=== PATIENT | female | born 1945 | race Caucasian/White ===

== ENCOUNTER → 2018-02-24 | Outpatient (CLI) | payer MEDICARE, BC ==
--- NOTE | 2018-02-24 16:10 | RAD ---
Abdominal ultrasound, 02/24/2018: HISTORY: Abdominal pain The gallbladder contains multiple foci of increased echogenicity with posterior acoustic shadowing. The appearance is that of cholelithiasis. There is mild gallbladder wall thickening. No pericholecystic edema is seen. The common hepatic duct measures 4 mm. There is no evidence of a hepatic mass or intrahepatic bile duct dilatation. The spleen is of normal size. No renal abnormality is detected. The pancreas and central retroperitoneum including the abdominal aorta and inferior vena cava were obscured by overlying bowel. IMPRESSION: Cholelithiasis with mild associated gallbladder wall thickening. Electronically signed by: Yuan Arboleda MD (02/24/2018 4:06 PM) [facility]
== END | disposition home or self-care (01) ==
LOC: US 06:58
PROVIDERS: ATTEND Family Medicine
DX: K80.20 Calculus of gallbladder without cholecystitis without obstruction (principal)
CPT/HCPCS: 76700

== ENCOUNTER 2018-03-08 11:31 | Observation (INO) | payer MEDICARE, BC ==
[~2018-03-08] VITALS: Ht 160 cm; Wt 51.3 kg
[2018-03-08] VITALS (9 sets, daily range): BP systolic 133–175; BP diastolic 54–66
[~2018-03-08 11:31] MED LIST: CHOL10003 PO; DEXAMETHASONE SOD PHOS 20 MG/5 ML VIAL. ONE; GLYCOPYRROLATE 1 MG/5 ML VIAL. ONE; HYDROmorphone 2 MG/ML VIAL IV PRN; IV RINGERS,LACTATED 1000ML 1,000 ML IV SCH; LEVO5TAB29 PO; LIDOCAINE 1% PF 2 ML VIAL. ID PRN; LIDOCAINE 2% PF Vial for OR 5 ML VIAL. ONE; LOPE2CAP88 PO; MORPHINE SULFATE 2 MG/ML VIAL. IV PRN; MULT1TAB52 PO; NEOSTIGMINE METHYLSULFATE 5 MG/5 ML SYRINGE. ONE; ONDA4TAB7 PO; ONDANSETRON PF 4 MG/2 ML VIAL. IV PRN; ONDANSETRON PF 4 MG/2 ML VIAL. ONE; OXYB5TAB7 PO; PANT20TA2 PO; PROCHLORPERAZINE 10 MG/2 ML VIAL. IV PRN; PROP10DR3 OP; PROPOFOL 20 ML IV ONE; ROCURONIUM 50 MG/5 ML VIAL. ONE; fentaNYL PF VIAL 100 MCG/2 ML VIAL IV PRN; fentaNYL PF VIAL 100 MCG/2 ML VIAL ONE
[2018-03-08] MEDS ORDERED: BUPIVAC MPF-EPI 0.5%-1:200000 30 ML VIAL. ONE (12:21)
[2018-03-08] MEDS ORDERED: IOHEXOL 300 MG/ML 100ML VIAL. ONE (12:21)
[2018-03-08] MEDS ORDERED: SURGICEL HEMOSTAT 4X8 EACH. ONE (12:21)
[2018-03-08] MEDS ORDERED: fentaNYL PF VIAL 100 MCG/2 ML VIAL ONE (13:11)
[2018-03-08] MEDS ORDERED: GLYCOPYRROLATE 1 MG/5 ML VIAL. ONE (13:41)
[2018-03-08] MEDS ORDERED: NEOSTIGMINE METHYLSULFATE 5 MG/5 ML SYRINGE. ONE (13:41)
[2018-03-08] MEDS ORDERED: SEVOFLURANE > 120 MINUTES. IH ONE (14:34)
--- NOTE | 2018-03-08 14:51 | RAD ---
Examination: Operative cholangiogram History: Cholecystectomy. Procedure: Fluoroscopic images were provided during the procedure. The cystic duct has been catheterized and contrast has been injected. Findings: The common hepatic bile duct and common bile duct are patent without evidence of intraluminal filling defect or obstruction. Contrast empties normally into the duodenum. Impression: Normal operative cholangiogram. Total fluoroscopic images 2. Total fluoroscopic time 20 seconds. Electronically signed by: Gallo Amato MD (03/08/2018 2:47 PM) [id number]
--- NOTE | 2018-03-08 14:55 | PDOC4 ---
Operative Note Operative Note Operative Note: Preoperative Diagnosis: Symptomatic cholelithiasis Postoperative Diagnosis: Same Procedure: Laparoscopic cholecystectomy with intraoperative cholangiogram, extensive laparoscopic lysis of adhesions (over 1 hour) Surgeons: Abdirahman Hand Box Folder: Nisha SIMPSON Anesthesia: Gen. Estimated Blood Loss: 25 mL Specimen: Gallbladder to pathology Drains: None Complications: None Indications: The patient is a 72-year-old female who presented with symptomatic cholelithiasis. Surgical treatment was offered by means of a laparoscopic cholecystectomy. The risks of surgery were discussed which include bleeding, infection, bile duct injury, bile leak, pain, the potential for additional surgeries or procedures. The patient understands and would like to proceed. Description: The patient was taken to the operating room and laid supine on the operating table. General anesthesia was performed. The abdomen was prepped with ChloraPrep and draped in a standard surgical fashion. The patient had prior abdominal surgeries and based on her scar pattern we elected to attempt to gain access in the left upper quadrant. A small incision was made through which a visualized 5 mm trocar was inserted. Under visualization were able to see a marked amount of adhesions. I was unable to easily obtain a clear space and elected to attempt right upper quadrant access. During visualization through the trocar there did not seem to be any disruption of the bowel. In the right upper quadrant a small incision was made through which a visualized 5 mm trocar was inserted. A pneumoperitoneum was created and the laparoscope was introduced. The patient had a very significant amount of adhesions due to her prior surgery. These were fairly extensive throughout the entire abdomen. To proceed with the cholecystectomy significant degree of adhesive lysis was required. I was able to place a 5 moment a trocar in the upper midabdomen. We began with mobilizing many of the adhesions involving primarily omentum but a small amount of intestine in the right abdomen. This was done with sharp dissection. We cleared enough space to place another 5 mm trocar in the right abdomen under visualization. We were able to move the camera to that port and continue freeing up the adhesions in the upper midabdomen and left upper quadrant. Gradually we were able to mobilize all of the intestine away from the abdominal wall. We were then able to better visualize the initial port entry site in the left upper quadrant. We continued to be significant adhesions however there did not appear to be any suggestion of a bowel injury and there was no enteric staining. In total over an hour was spent performing the lysis of adhesions and inspection of the abdomen. We then proceeded to the right upper quadrant for the cholecystectomy. In the right lateral abdomen at 2.3 mm mini lap grasper was inserted. The gallbladder was very distended and tense. The gallbladder was aspirated and over 100 mL of bilious fluid was suctioned providing gallbladder decompression. The gallbladder was then retracted cephalad. The cystic duct was dissected free from surrounding tissues. One clip was placed on the duct near the gallbladder junction. An opening was made in the duct and a cholangiocatheter placed within and secured with a clip. Using contrast dye and fluoroscopy an intraoperative cholangiogram was performed that appeared unremarkable. The clip and catheter were then withdrawn. Three clips were placed on the cystic duct and it was divided. The cystic artery was then identified, dissected free, doubly clipped and divided as well. The gallbladder was then mobilized away from the liver with cautery. The gallbladder was then placed in an endoscopic bag and extracted at the superior trocar site. The fascia there was closed with interrupted 0 PDS sutures. All blood and irrigation fluid was suctioned and hemostasis was good. Inspection of the left abdomen again showed no signs suggesting bowel injury. The remaining ports were removed and the pneumoperitoneum was relieved. The skin incisions were closed using 4-0 Monocryl suture. Steri-Strips and dressings were then applied. The patient tolerated the procedure well and was sent to the recovery room in stable condition. At the end of the case all counts were correct. EVANS PERERA MD Mar 08, 2018 14:55
[2018-03-08] MEDS ORDERED: HYDROmorphone 2 MG/ML VIAL IV PRN (15:00)
[2018-03-08] MEDS ORDERED: 0.9 % SODIUM CHLORIDE 10 ML DISP.SYRIN. IV PRN (15:00)
[2018-03-08] MEDS ORDERED: HYDROcodone/APAP 5/325MG 1 TAB TABLET PO PRN ×2 (15:00)
[2018-03-08] MEDS ORDERED: ONDANSETRON PF 4 MG/2 ML VIAL. IV PRN (15:00)
[2018-03-08] MEDS ORDERED: DEXTROSE 50% 25 GM / 50ML DISP.SYRIN. IV PRN (15:00)
[2018-03-08] MEDS: IV 1/2 NORMAL SALINE 1,000 ML IV SCH (16:42)
[2018-03-08] MEDS: PANTOPRAZOLE 40 MG TABLET.DR. PO SCH (16:42)
[2018-03-08] MEDS: OXYBUTYNIN CHLORIDE 5 MG TABLET PO SCH (21:05)
[2018-03-09 03:00] VITALS: BP 148/90
[2018-03-09 05:40] LABS: BASO % 1 % (0-3); EOS % 1 % (0-3); HEMATOCRIT 29.1 % (36.0-47.0); HEMOGLOBIN 9.9 g/dL (12.0-15.5); LYMPH # 0.9 x10^3/uL (1.0-4.8); LYMPH % 19 % (24-48); MEAN CORPUSCULAR HEMOGLOBIN 31 pg (25-35); MEAN CORPUSCULAR HGB CONC 34 g/dL (31-37); MEAN CORPUSCULAR VOLUME 91 fL (79-100); MONO # 0.6 x10^3/uL (0.0-1.1); MONO % 14 % (0-9); NEUT # 2.9 x10^3uL (1.8-7.7); NEUT % 66 % (31-73); PLATELET COUNT 259 x10^3/uL (140-400); RED BLOOD COUNT 3.18 x10^6/uL (3.50-5.40); RED CELL DISTRIBUTION WIDTH 13.3 % (11.5-14.5); WHITE BLOOD COUNT 4.5 x10^3/uL (4.0-11.0)
[2018-03-09] MEDS: IV 1/2 NORMAL SALINE 1,000 ML IV SCH (05:43)
[2018-03-09] MEDS: PANTOPRAZOLE 40 MG TABLET.DR. PO SCH (06:39)
[2018-03-09 07:00] VITALS: BP 146/56
[2018-03-09] MEDS: OXYBUTYNIN CHLORIDE 5 MG TABLET PO SCH (07:52)
[2018-03-09] MEDS ORDERED: HYDR-2761 PO (08:51)
[2018-03-09] MEDS ORDERED: CETIRIZINE HCL 10 MG TABLET. PO SCH (09:00)
[2018-03-09] MEDS ORDERED: CHOLECALCIFEROL (VITAMIN D3) 1,000 UNIT TABLET PO SCH (09:00)
[2018-03-09] MEDS ORDERED: MULTIVITAMIN with MINERAL TABLET. PO SCH (09:00)
[2018-03-09] MEDS ORDERED: ACETAMINOPHEN 325 MG TABLET. PO PRN (09:45)
--- NOTE | 2018-03-09 09:50 | DISCH ---
DISCHARGE INSTRUCTIONS Condition on Discharge Condition on Discharge: Stable Activity After Discharge Activity Instructions for Disc: Activity as tolerated Other activity instructions: ok to shower Lifting Instructions after Dis: No heavy lifting, No pulling or pushing (20 lbsc) Driving Instructions after Dis: Do not drive (while taking pain medication ) Diet after Discharge Diet after Discharge: Regular Wound Incision Care Wound/Incision Care: May get incision wet, No wound care needed Contacting the after DC Call your doctor for: Concerns you may have Follow-Up Follow up with: Dr Gary 2 weeks, call to schedule AMARILIS ABDI APRN Mar 09, 2018 09:50
--- NOTE | 2018-03-09 09:53 | PDOC3 ---
Discharge Summary Visit Information Date of Admission: Mar 08, 2018 Date of Discharge: Mar 09, 2018 Admitting Diagnosis: Symptomatic cholelithiasis Final Diagnosis Symptomatic cholelithiasis Brief Hospital Course Allergies Allergies Coded Allergies Type Severity Reaction Last Updated Verified latex Allergy Intermediate EYE SWELLING; RASH 03/08/18 Yes codeine Adverse Reaction Intermediate Makes her feel uncomfortable 03/08/18 Yes Vital Signs Vital Signs Date Time Temp Pulse Resp B/P (MAP) Pulse Ox O2 Delivery O2 Flow Rate FiO2 03/09/18 08:15 Room Air 03/09/18 07:00 97.9 81 18 146/56 (86) 98 97.9 03/08/18 14:54 10 Lab Results Laboratory Tests Test 03/09/18 04:35 White Blood Count 4.5 x10^3/uL (4.0-11.0) Red Blood Count 3.18 x10^6/uL (3.50-5.40) Hemoglobin 9.9 g/dL (12.0-15.5) Hematocrit 29.1 % (36.0-47.0) Mean Corpuscular Volume 91 fL (79-100) Mean Corpuscular Hemoglobin 31 pg (25-35) Mean Corpuscular Hemoglobin Concent 34 g/dL (31-37) Red Cell Distribution Width 13.3 % (11.5-14.5) Platelet Count 259 x10^3/uL (140-400) Neutrophils (%) (Auto) 66 % (31-73) Lymphocytes (%) (Auto) 19 % (24-48) Monocytes (%) (Auto) 14 % (0-9) Eosinophils (%) (Auto) 1 % (0-3) Basophils (%) (Auto) 1 % (0-3) Neutrophils # (Auto) 2.9 x10^3uL (1.8-7.7) Lymphocytes # (Auto) 0.9 x10^3/uL (1.0-4.8) Monocytes # (Auto) 0.6 x10^3/uL (0.0-1.1) Eosinophils # (Auto) 0.0 x10^3/uL (0.0-0.7) Basophils # (Auto) 0.0 x10^3/uL (0.0-0.2) Laboratory Tests Test 03/09/18 04:35 White Blood Count 4.5 x10^3/uL (4.0-11.0) Red Blood Count 3.18 x10^6/uL (3.50-5.40) Hemoglobin 9.9 g/dL (12.0-15.5) Hematocrit 29.1 % (36.0-47.0) Mean Corpuscular Volume 91 fL (79-100) Mean Corpuscular Hemoglobin 31 pg (25-35) Mean Corpuscular Hemoglobin Concent 34 g/dL (31-37) Red Cell Distribution Width 13.3 % (11.5-14.5) Platelet Count 259 x10^3/uL (140-400) Neutrophils (%) (Auto) 66 % (31-73) Lymphocytes (%) (Auto) 19 % (24-48) Monocytes (%) (Auto) 14 % (0-9) Eosinophils (%) (Auto) 1 % (0-3) Basophils (%) (Auto) 1 % (0-3) Neutrophils # (Auto) 2.9 x10^3uL (1.8-7.7) Lymphocytes # (Auto) 0.9 x10^3/uL (1.0-4.8) Monocytes # (Auto) 0.6 x10^3/uL (0.0-1.1) Eosinophils # (Auto) 0.0 x10^3/uL (0.0-0.7) Basophils # (Auto) 0.0 x10^3/uL (0.0-0.2) Brief Hospital Course Ms. Michel is a 72 old female who underwent Laparoscopic cholecystectomy with intraoperative cholangiogram, extensive laparoscopic lysis of adhesions ( over 1 hour). Postoperatively tolerating diet, ambulating, and pain managed. Ready for discharge home Discharge Information Condition at Discharge: Stable Follow Up: Weeks (2) Disposition/Orders: D/C to Home Scheduled Cholecalciferol (Vitamin D3) (Vitamin D3) 1,000 Unit Tablet, 1,000 UNIT PO DAILY for VITAMIN, (Reported) Entered as Reported by: NICA WINN on 03/07/181007 Last Action: Continued on 03/08/18 1459 by EVANS PERERA Levocetirizine Dihydrochloride (Xyzal) 5 Mg Tablet, 5 MG PO DAILY for ALLERGIES , (Reported) Entered as Reported by: NICA WINN on 03/07/181007 Last Action: Converted on 03/08/181458 by EVANS PERERA Multivitamin (Multivitamins) 1 Each Tablet, 1 EACH PO DAILY for VITAMIN, ( Reported) Entered as Reported by: NICA WINN on 03/07/181007 Last Action: Converted on 03/08/181458 by EVANS PERERA Oxybutynin Chloride (Oxybutynin Chloride) 5 Mg Tablet, 5 MG PO TID for FREQUENCY , (Reported) Entered as Reported by: NICA WINN on 03/07/181007 Last Action: Continued on 03/08/181458 by EVANS PERERA Pantoprazole Sodium (Protonix) 20 Mg Tablet.dr, 40 MG PO BID for REFLUX, ( Reported) Entered as Reported by: NICA WINN on 03/07/181007 Last Taken: Unknown Dose on 03/08/18 0800 Last Action: Converted on 03/08 by EVANS PERERA Propylene Glycol/Peg 400 (Systane Ultra 0.4-0.3% Eye Drp) 10 Ml Drops, 10 ML OP BID for EYES, (Reported) Entered as Reported by: NICA WINN on 03/07/181007 Last Action: HELD on 03/08/181458 by EVANS PERERA Scheduled PRN Hydrocodone Bit/Acetaminophen (Hydrocodone-Apap 5-325 ) 1 Tab Tablet, 1 TAB PO PRN Q4HRS PRN for MILD PAIN, #30 Ref 0 Prescribed by: Ayleen Stafford on 03/09/18 08 Loperamide HCl (Imodium A-D) 2 Mg Capsule, 2 MG PO PRN PRN for DIARRHEA, ( Reported) Entered as Reported by: NICA WINN on 03/07/181007 Last Action: HELD on 03/08/181458 by EVANS PERERA Ondansetron Hcl (Zofran) 4 Mg Tablet, 4 MG PO BID PRN for NAUSEA/VOMITING, ( Reported) Entered as Reported by: NICA WINN on 03/07/181007 Last Action: HELD on 03/08/181458 by AYLEEN TIMMONS APRN Mar 09, 2018 09:52
== END 2018-03-09 11:10 | disposition home or self-care (01) ==
LOC: SURG 11:31 → 4 NORTH 14:54
PROVIDERS: ADMIT Surgery; ATTEND Surgery
DX: K80.20 Calculus of gallbladder without cholecystitis without obstruction (principal); K66.0 Peritoneal adhesions (postprocedural) (postinfection)
CPT/HCPCS: 36415; 47563; 74300; 85025; A7015; G0378; G0379; J0690; J1100; J2001; J2405; J2704; J2710; J3010; J3490; J7030; Q9967

== ENCOUNTER 2018-05-16 16:32 | Inpatient (IN) | payer MEDICARE, BC ==
[~2018-05-16] VITALS: Ht 160 cm; Wt 45.8 kg
[~2018-05-16 16:32] MED LIST changes: +ASPI-612 PO; +CHOL4POW3 PO; -DEXAMETHASONE SOD PHOS 20 MG/5 ML VIAL. ONE; +DIPH1TAB5 PO; +FAMO20TA5 PO; -GLYCOPYRROLATE 1 MG/5 ML VIAL. ONE; +HYDR-2761 PO; -HYDROmorphone 2 MG/ML VIAL IV PRN; -IV RINGERS,LACTATED 1000ML 1,000 ML IV SCH; -LIDOCAINE 1% PF 2 ML VIAL. ID PRN; -LIDOCAINE 2% PF Vial for OR 5 ML VIAL. ONE; +METO50TA4 PO; -MORPHINE SULFATE 2 MG/ML VIAL. IV PRN; +MOXI400T PO; -NEOSTIGMINE METHYLSULFATE 5 MG/5 ML SYRINGE. ONE; -ONDANSETRON PF 4 MG/2 ML VIAL. IV PRN; -ONDANSETRON PF 4 MG/2 ML VIAL. ONE; +POTA10TA6 PO; -PROCHLORPERAZINE 10 MG/2 ML VIAL. IV PRN; -PROPOFOL 20 ML IV ONE; -ROCURONIUM 50 MG/5 ML VIAL. ONE; -fentaNYL PF VIAL 100 MCG/2 ML VIAL IV PRN; -fentaNYL PF VIAL 100 MCG/2 ML VIAL ONE
[2018-05-16] MEDS ORDERED: IV NORMAL SALINE 1000ML BAG 1,000 ML IV ONE ×2 (17:00→19:30)
[2018-05-16] MEDS ORDERED: ONDANSETRON PF 4 MG/2 ML VIAL. IV ONE (17:00)
[2018-05-16 17:29] LABS: BASO % 1 % (0-3); EOS % 1 % (0-3); HEMATOCRIT 33.2 % (36.0-47.0); HEMOGLOBIN 10.9 g/dL (12.0-15.5); LYMPH % 23 % (24-48); MEAN CORPUSCULAR HEMOGLOBIN 29 pg (25-35); MEAN CORPUSCULAR HGB CONC 33 g/dL (31-37); MEAN CORPUSCULAR VOLUME 87 fL (79-100); MONO # 0.7 x10^3/uL (0.0-1.1); MONO % 16 % (0-9); NEUT # 2.6 x10^3uL (1.8-7.7); NEUT % 60 % (31-73); PLATELET COUNT 486 x10^3/uL (140-400); RED CELL DISTRIBUTION WIDTH 18.9 % (11.5-14.5); WHITE BLOOD COUNT 4.3 x10^3/uL (4.0-11.0)
[2018-05-16 17:42] LABS: CALCIUM 8.7 mg/dL (8.5-10.1); CREATININE 0.8 mg/dL (0.6-1.0); GFR 70.7; POTASSIUM 3.4 mmol/L (3.5-5.1)
[2018-05-16 17:51] LABS: ALBUMIN 2.2 g/dL (3.4-5.0); ALBUMIN/GLOBULIN RATIO 0.6 (1.0-1.7); TOTAL BILIRUBIN 0.3 mg/dL (0.2-1.0); TOTAL PROTEIN 6.1 g/dL (6.4-8.2)
[2018-05-16] MEDS ORDERED: IOHEXOL 300 MG/ML 100ML VIAL. IV ONE (18:00)
--- NOTE | 2018-05-16 18:20 | RAD ---
PQRS Compliance statement: One or more of the following individualized dose reduction techniques were utilized for this examination: 1. Automated exposure control. 2. Adjustment of the mA and/or kV according to patient size. 3. Use of iterative reconstruction technique. Indication:ABD PAIN, HX RECENT SBO, PRIOR SENT, [id number] 75ML TECHNIQUE: CT abdomen and pelvis with IV contrast with multiplanar reformats. COMPARISON: 04/11/2018 FINDINGS: Heart is normal in size. No pericardial or pleural effusion. Moderate sliding hiatal hernia. Clear lung bases. Liver, spleen, pancreas, adrenals and kidneys within normal limits. Status post cholecystectomy. No free pelvic fluid or ascites. Anastomotic sutures are seen in the rectum. Diffusely dilated small bowel loops are seen with air-fluid levels. Transition point is most likely in the distal small bowel. Moderate diffuse colonic stool burden.. Status post hysterectomy. Urinary bladder is decompressed however shows no radiopaque stones. No pneumoperitoneum or pneumatosis intestinalis. No suspicious bony lesion. IMPRESSION: 1. Findings of small bowel obstruction with transition point most likely in the distal small bowel. 2. Moderate sliding hiatal hernia. Electronically signed by: Antwan Diallo DO (05/16/2018 6:17 PM) [facility]
--- NOTE | 2018-05-16 19:17 | PHYS DOC ---
Past Medical History Past Medical History: Cancer Additional Past Medical Histor: RECTAL CA, tachycardia, Past Surgical History: Cholecystectomy, Hysterectomy, Tonsillectomy, Other Additional Past Surgical Histo: BUNION, RECTAL, BREAST BIOPSY Alcohol Use: None Drug Use: None Adult General Chief Complaint Chief Complaint: ABDOMINAL PAIN HPI HPI Patient is a 72 year old female with history of rectal cancer, laparoscopic cholecystectomy February 2018, who presents to the ED today complaining of a slight intermittent episodes of generalized abdominal pain and nausea since yesterday. Patient denies any vomiting. She states this feels similar to around March 2018 when she was diagnosed with small bowel obstruction. Review of Systems Review of Systems Constitutional: Denies fever or chills [] Eyes: Denies change in visual acuity, redness, or eye pain [] HENT: Denies nasal congestion or sore throat [] Respiratory: Denies cough or shortness of breath [] Cardiovascular: No additional information not addressed in HPI [] GI: Reports generalized abdominal pain, nausea, denies vomiting, bloody stools or diarrhea [] : Denies dysuria or hematuria [] Musculoskeletal: Denies back pain or joint pain [] Integument: Denies rash or skin lesions [] Neurologic: Denies headache, focal weakness or sensory changes [] All other systems were reviewed and found to be within normal limits, except as documented in this note. Current Medications Current Medications Current Medications Medications (Trade) Dose Ordered Sig/Josefina Start Time Stop Time Status Last Admin Dose Admin Iohexol (Omnipaque 300 Mg/ml) 75 ml 1X ONCE 05/16/18 18:00 05/16/18 18:01 DC 05/16/18 18:04 75 ML Ondansetron HCl (Zofran) 4 mg 1X ONCE 05/16/18 17:00 05/16/18 17:01 DC Sodium Chloride 1,000 ml @ 1,000 mls/hr 1X ONCE 05/16/18 17:00 05/16/18 17:59 DC 05/16/18 17:24 1,000 MLS/HR Allergies Allergies Allergies Coded Allergies Type Severity Reaction Last Updated Verified latex Allergy Intermediate EYE SWELLING; RASH 03/08/18 Yes codeine Adverse Reaction Intermediate Makes her feel uncomfortable 03/08/18 Yes Physical Exam Physical Exam Constitutional: Thin appearing patient, no acute distress, non-toxic appearance. [] HENT: Normocephalic, atraumatic, bilateral external ears normal, oropharynx moist, no oral exudates, nose normal. [] Eyes: PERRLA, EOMI, conjunctiva normal, no discharge. [] Neck: Normal range of motion, no tenderness, supple, no stridor. [] Cardiovascular:Heart rate regular rhythm, no murmur [] Lungs & Thorax: Bilateral breath sounds clear to auscultation [] Abdomen: Old healed surgical incision noted on the abdomen consistent with laparoscopy cholecystectomy. Bowel sounds normal, soft, no tenderness, no masses , no pulsatile masses. [] Skin: Warm, dry, no erythema, no rash. [] Back: No tenderness, no CVA tenderness. [] Extremities: No tenderness, no cyanosis, no clubbing, ROM intact, no edema. [] Neurologic: Alert and oriented X 3, normal motor function, normal sensory function, no focal deficits noted. [] Psychologic: Affect normal, judgement normal, mood normal. [] Current Patient Data Vital Signs Vital Signs Date Time Temp Pulse Resp B/P (MAP) Pulse Ox O2 Delivery O2 Flow Rate FiO2 05/16/18 18:40 88 16 162/77 (105) 98 Room Air 05/16/18 16:53 98.1 98.1 Lab Values Laboratory Tests Test 05/16/18 17:19 White Blood Count 4.3 x10^3/uL (4.0-11.0) Red Blood Count 3.80 x10^6/uL (3.50-5.40) Hemoglobin 10.9 g/dL (12.0-15.5) L Hematocrit 33.2 % (36.0-47.0) L Mean Corpuscular Volume 87 fL (79-100) Mean Corpuscular Hemoglobin 29 pg (25-35) Mean Corpuscular Hemoglobin Concent 33 g/dL (31-37) Red Cell Distribution Width 18.9 % (11.5-14.5) H Platelet Count 486 x10^3/uL (140-400) H Neutrophils (%) (Auto) 60 % (31-73) Lymphocytes (%) (Auto) 23 % (24-48) L Monocytes (%) (Auto) 16 % (0-9) H Eosinophils (%) (Auto) 1 % (0-3) Basophils (%) (Auto) 1 % (0-3) Neutrophils # (Auto) 2.6 x10^3uL (1.8-7.7) Lymphocytes # (Auto) 1.0 x10^3/uL (1.0-4.8) Monocytes # (Auto) 0.7 x10^3/uL (0.0-1.1) Eosinophils # (Auto) 0.0 x10^3/uL (0.0-0.7) Basophils # (Auto) 0.0 x10^3/uL (0.0-0.2) Sodium Level 139 mmol/L (136-145) Potassium Level 3.4 mmol/L (3.5-5.1) L Chloride Level 100 mmol/L (98-107) Carbon Dioxide Level 30 mmol/L (21-32) Anion Gap 9 (6-14) Blood Urea Nitrogen 16 mg/dL (7-20) Creatinine 0.8 mg/dL (0.6-1.0) Estimated GFR (Cockcroft-Gault) 70.7 BUN/Creatinine Ratio 20 (6-20) Glucose Level 105 mg/dL (70-99) H Calcium Level 8.7 mg/dL (8.5-10.1) Total Bilirubin 0.3 mg/dL (0.2-1.0) Aspartate Amino Transferase (AST) 17 U/L (15-37) Alanine Aminotransferase (ALT) 14 U/L (14-59) Alkaline Phosphatase 85 U/L (46-116) Total Protein 6.1 g/dL (6.4-8.2) L Albumin 2.2 g/dL (3.4-5.0) L Albumin/Globulin Ratio 0.6 (1.0-1.7) L Lipase 284 U/L (73-393) Laboratory Tests 05/16/18 17:19 Laboratory Tests 05/16/18 17:19 EKG EKG [] Radiology/Procedures Radiology/Procedures [] Course & Med Decision Making Course & Med Decision Making Pertinent Labs and Imaging studies reviewed. (See chart for details) This is a 72-year-old female patient presenting to the ED today to be evaluated for episodes of abdominal pain, nausea, since yesterday. CBC, CMP, no acute findings, CT of the abdomen and pelvic with IV contrast was noted for small bowel obstruction. NG tube was ordered. IV fluids. Consulted with Dr. Westbrook who will follow-up with patient for general surgery Consulted with who accepted patient for admission. Dragon Disclaimer Dragon Disclaimer This electronic medical record was generated, in whole or in part, using a voice recognition dictation system. Departure Departure Impression: Primary Impression: SBO (small bowel obstruction) Disposition: ADMITTED INPATIENT Condition: STABLE Referrals: ALLYN PATE MD (PCP) DONA ALVAREZ APRN May 16, 2018 19:17
[2018-05-16] MEDS ORDERED: ONDANSETRON PF 4 MG/2 ML VIAL. IV PRN (19:30)
[2018-05-16] MEDS ORDERED: fentaNYL PF VIAL 100 MCG/2 ML VIAL IV PRN (19:30)
[2018-05-16 21:08] LABS: BILIRUBIN,URINE NEGATIVE (NEG); CLARITY,URINE CLEAR; COLOR,URINE YELLOW; NITRITE,URINE NEGATIVE (NEG); PROTEIN,URINE NEGATIVE (NEG-TRACE); UROBILINOGEN,URINE 0.2 mg/dL (0.2 mg/dL)
[2018-05-16 21:13] LABS: BACTERIA,URINE 0 /HPF (0-FEW); HYALINE CASTS, URINE FEW /HPF; RBC,URINE OCC /HPF (0-2); SQUAMOUS EPITHELIAL CELL,UR FEW /LPF; WBC,URINE 20-40 /HPF (0-4)
[2018-05-16 23:11] VITALS: BP 157/82
[2018-05-17 03:17] VITALS: BP 150/80
[2018-05-17 05:24] LABS: FECAL OB PT NEGATIVE (NEG)
[2018-05-17 05:58] LABS: BASO % 1 % (0-3); EOS # 0.1 x10^3/uL (0.0-0.7); EOS % 4 % (0-3); HEMATOCRIT 29.8 % (36.0-47.0); HEMOGLOBIN 9.8 g/dL (12.0-15.5); LYMPH # 1.1 x10^3/uL (1.0-4.8); LYMPH % 28 % (24-48); MEAN CORPUSCULAR HEMOGLOBIN 29 pg (25-35); MEAN CORPUSCULAR HGB CONC 33 g/dL (31-37); MEAN CORPUSCULAR VOLUME 88 fL (79-100); MONO # 0.7 x10^3/uL (0.0-1.1); MONO % 18 % (0-9); NEUT # 1.9 x10^3uL (1.8-7.7); NEUT % 49 % (31-73); PLATELET COUNT 418 x10^3/uL (140-400); RED BLOOD COUNT 3.41 x10^6/uL (3.50-5.40); RED CELL DISTRIBUTION WIDTH 19.6 % (11.5-14.5); WHITE BLOOD COUNT 3.8 x10^3/uL (4.0-11.0)
[2018-05-17 06:27] LABS: CALCIUM 7.7 mg/dL (8.5-10.1); CREATININE 0.6 mg/dL (0.6-1.0); GFR 98.5; POTASSIUM 3.1 mmol/L (3.5-5.1)
[2018-05-17 07:00] VITALS: BP 146/71
--- NOTE | 2018-05-17 09:03 | PDOC2 ---
CONSULT Date of Consult Date of Consult DATE: 05/17/18 TIME: 08:56 History of Present Illness Reason for Visit: The patient is a 72 year old female who was admitted due to vomiting. She was feeling well Tuesday, but developed some crampy abdominal pain with vomiting Tuesday. The discomfort was diffuse and not described as severe. She reported to the ER and was admitted. A CT scan showed diffusely dilated small bowel raising concern for a SBO. She was admitted with similar findings in March, but improved apart from having significant diarrhea. She has been continuing to have bowel function and had a stool this morning. Past Medical History Cardiovascular: HTN, Hyperlipidemia Pulmonary: No pertinent hx CENTRAL NERVOUS SYSTEM: Other GI: GERD, Irritable bowel disease Heme/Onc: Anemia NOS, Cancer Hepatobiliary: No pertinent hx Psych: No pertinent hx Musculoskeletal: Osteoarthritis Rheumatologic: No pertinent hx Infectious disease: No pertinent hx, Other Renal/: No pertinent hx Endocrine: Osteopenia Past Surgical History Past Surgical History: Cholecystectomy, Tonsillectomy, Colon Resection, Other Family History Family History: Coronary Artery Disease, Heart Disease Social History ALCOHOL: none Drugs: None Lives: with Family Current Problem List Problem List Problems Medical Problems: (1) SBO (small bowel obstruction) Status: Acute Current Medications Current Medications Current Medications Ondansetron HCl (Zofran) 4 mg 1X ONCE IV ; Start 05/16/18 at 17:00; Stop at 17:01; Status DC Sodium Chloride 1,000 ml @ 1,000 mls/hr 1X ONCE IV Last administered on at 17:24; Start 05/16/18 at 17:00; Stop 05/16/18 at 17:59; Status DC Iohexol (Omnipaque 300 Mg/ml) 75 ml 1X ONCE IV Last administered on 05/16/18at 18:04; Start 05/16/18 at 18:00; Stop 05/16/18 at 18:01; Status DC Ondansetron HCl (Zofran) 4 mg PRN Q8HRS PRN IV NAUSEA/VOMITING; Start 05/16/18 at 19:30; Stop 05/17/18 at 19:29 Sodium Chloride 1,000 ml @ 100 mls/hr 1X ONCE IV Last administered on at 19:36; Start 05/16/18 at 19:30; Stop 05/17/18 at 05:29; Status DC Fentanyl Citrate (Fentanyl 2ml Vial) 50 mcg PRN Q4HRS PRN IV PAIN; Start at 19:30 Active Scripts Active Klor-Con 10 (Potassium Chloride) 10 Meq Tablet.er 10 Meq PO DAILY 30 Days Diphenoxylate-Atropine Tablet (Diphenoxylate Hcl/Atropine) 1 Each Tablet 1 Tab PO PRN QID PRN 30 Days Prevalite Packet (Cholestyramine/Aspartame) 4 Gm Powd.pack 4 Gm PO BID 60 Days Avelox (Moxifloxacin Hcl) 400 Mg Tablet 1 Tab PO DAILY Famotidine 20 Mg Tablet 20 Mg PO QHS 60 Days Aspirin Ec (Aspirin) 81 Mg Tablet.dr 81 Mg PO DAILYWBKFT 30 Days Toprol Xl (Metoprolol Succinate) 50 Mg Tab.er.24h 50 Mg PO HS 30 Days Hydrocodone-Apap 5-325 (Hydrocodone Bit/Acetaminophen) 1 Tab Tablet 1 Tab PO PRN Q4HRS PRN Reported Imodium A-D (Loperamide HCl) 2 Mg Capsule 2 Mg PO PRN PRN Xyzal (Levocetirizine Dihydrochloride) 5 Mg Tablet 5 Mg PO DAILY Oxybutynin Chloride 5 Mg Tablet 5 Mg PO TID Zofran (Ondansetron Hcl) 4 Mg Tablet 4 Mg PO BID PRN Multivitamins (Multivitamin) 1 Each Tablet 1 Each PO DAILY Vitamin D3 (Cholecalciferol (Vitamin D3)) 1,000 Unit Tablet 1,000 Unit PO DAILY Systane Ultra 0.4-0.3% Eye Drp (Propylene Glycol/Peg 400) 10 Ml Drops 10 Ml OP BID Allergies Allergies: Coded Allergies: latex (Verified Allergy, Intermediate, EYE SWELLING; RASH, 03/08/18) codeine (Verified Adverse Reaction, Intermediate, Makes her feel uncomfortable, 03/08/18) ROS General: YES: Appetite (poor appetitie), Other (difficulty with gaining weight) PSYCHOLOGICAL ROS: No: Anxiety, Behavioral Disorder, Concentration difficultie , Decreased libido, Depression, Disorientation, Hallucinations, Hostility, Irritablity, Memory difficulties, Mood Swings, Obsessive thoughts, Physical abuse, Sexual abuse, Sleep disturbances, Suicidal ideation, Other Eyes: No Blurry vision, No Decreased vision, No Double vision, No Dry eyes, No Excessive tearing, No Eye Pain, No Itchy Eyes, No Loss of vision, No Photophobia , No Scotomata, No Uses contacts, No Uses glasses, No Other HEENT: No: Heacaches, Visual Changes, Hearing change, Nasal congestion, Nasal discharge, Oral lesions, Sinus pain, Sore Throat, Epistaxis, Sneezing, Snoring, Tinnitus, Vertigo, Vocal changes, Other ALLERGY AND IMMUNOLOGY: No: Hives, Insect Bite Sensitivity, Itchy/Watery Eyes, Nasal Congestion, Post Nasal Drip, Seasonal Allergies, Other Hematological and Lymphatic: No: Bleeding Problems, Blood Clots, Blood Transfusions, Brusing, Night Sweats, Pallor, Swollen Lymph Nodes, Other ENDOCRINE: No: Breast Changes, Galactorrhea, Hair Pattern Changes, Hot Flashes , Malaise/lethargy, Mood Swings, Palpitations, Polydipsia/polyuria, Skin Changes , Temperature Intolerance, Unexpected Weight Changes, Other Respiratory: No: Cough, Hemoptysis, Orthopnea, Pleuritic Pain, Shortness of breath, SOB with excertion, Sputum Changes, Stridor, Tachypnea, Wheezing, Other Cardiovascular: No Chest Pain, No Palpitations, No Orthopnea, No Paroxysmal Noc. Dyspnea, No Edema, No Lt Headedness, No Other Gastrointestinal: Yes Vomiting Genitourinary: No Dysuria, No Frequency, No Incontinence, No Hematuria, No Retention, No Discharge, No Urgency, No Pain, No Flank Pain, No Other, No , No , No , No , No , No , No Musculoskeletal: No Gait Disturbance, No Joint Pain, No Joint Stiffness, No Joint Swelling, No Muscle Pain, No Muscular Weakness, No Pain In:, No Swelling In:, No Other Neurological: No Behavorial Changes, No Bowel/Bladder ControlChng, No Confusion , No Dizziness, No Gait Disturbance, No Headaches, No Impaired Coord/balance, No Memory Loss, No Numbness/Tingling, No Seizures, No Speech Problems, No Tremors, No Visual Changes, No Weakness, No Other Skin: No Dry Skin, No Eczema, No Hair Changes, No Lumps, No Mole Changes, No Mottling, No Nail Changes, No Pruritus, No Rash, No Skin Lesion Changes, No Other, No Acne Physical Exam General: Alert, Oriented X3, Cooperative, No acute distress HEENT: Atraumatic, Other (NG tube intact) Lungs: Clear to auscultation Heart: Regular rate Abdomen: Soft, No tenderness Extremities: No clubbing, No cyanosis Skin: No rashes, No breakdown Neuro: Normal speech Psych/Mental Status: Mental status NL MUSCULOSKELETAL: No joint tenderness, No deformity Vitals VITALS Vital Signs Date Time Temp Pulse Resp B/P (MAP) Pulse Ox O2 Delivery O2 Flow Rate FiO2 05/17/18 07:00 98.3 89 18 146/71 (96) 98 Room Air 98.3 Labs Labs Laboratory Tests Test 05/16/18 17:19 05/16/18 21:00 05/17/18 02:00 05/17/18 04:30 White Blood Count 4.3 x10^3/uL (4.0-11.0) 3.8 x10^3/uL (4.0-11.0) Red Blood Count 3.80 x10^6/uL (3.50-5.40) 3.41 x10^6/uL (3.50-5.40) Hemoglobin 10.9 g/dL (12.0-15.5) 9.8 g/dL (12.0-15.5) Hematocrit 33.2 % (36.0-47.0) 29.8 % (36.0-47.0) Mean Corpuscular Volume 87 fL (79-100) 88 fL (79-100) Mean Corpuscular Hemoglobin 29 pg (25-35) 29 pg (25-35) Mean Corpuscular Hemoglobin Concent 33 g/dL (31-37) 33 g/dL (31-37) Red Cell Distribution Width 18.9 % (11.5-14.5) 19.6 % (11.5-14.5) Platelet Count 486 x10^3/uL (140-400) 418 x10^3/uL (140-400) Neutrophils (%) (Auto) 60 % (31-73) 49 % (31-73) Lymphocytes (%) (Auto) 23 % (24-48) 28 % (24-48) Monocytes (%) (Auto) 16 % (0-9) 18 % (0-9) Eosinophils (%) (Auto) 1 % (0-3) 4 % (0-3) Basophils (%) (Auto) 1 % (0-3) 1 % (0-3) Neutrophils # (Auto) 2.6 x10^3uL (1.8-7.7) 1.9 x10^3uL (1.8-7.7) Lymphocytes # (Auto) 1.0 x10^3/uL (1.0-4.8) 1.1 x10^3/uL (1.0-4.8) Monocytes # (Auto) 0.7 x10^3/uL (0.0-1.1) 0.7 x10^3/uL (0.0-1.1) Eosinophils # (Auto) 0.0 x10^3/uL (0.0-0.7) 0.1 x10^3/uL (0.0-0.7) Basophils # (Auto) 0.0 x10^3/uL (0.0-0.2) 0.0 x10^3/uL (0.0-0.2) Sodium Level 139 mmol/L (136-145) 141 mmol/L (136-145) Potassium Level 3.4 mmol/L (3.5-5.1) 3.1 mmol/L (3.5-5.1) Chloride Level 100 mmol/L (98-107) 105 mmol/L (98-107) Carbon Dioxide Level 30 mmol/L (21-32) 25 mmol/L (21-32) Anion Gap 9 (6-14) 11 (6-14) Blood Urea Nitrogen 16 mg/dL (7-20) 14 mg/dL (7-20) Creatinine 0.8 mg/dL (0.6-1.0) 0.6 mg/dL (0.6-1.0) Estimated GFR (Cockcroft-Gault) 70.7 98.5 BUN/Creatinine Ratio 20 (6-20) Glucose Level 105 mg/dL (70-99) 68 mg/dL (70-99) Calcium Level 8.7 mg/dL (8.5-10.1) 7.7 mg/dL (8.5-10.1) Total Bilirubin 0.3 mg/dL (0.2-1.0) Aspartate Amino Transf (AST/SGOT) 17 U/L (15-37) Alanine Aminotransferase (ALT/SGPT) 14 U/L (14-59) Alkaline Phosphatase 85 U/L (46-116) Total Protein 6.1 g/dL (6.4-8.2) Albumin 2.2 g/dL (3.4-5.0) Albumin/Globulin Ratio 0.6 (1.0-1.7) Lipase 284 U/L (73-393) Urine Collection Type Unknown Urine Color Yellow Urine Clarity Clear Urine pH 7.0 Urine Specific [place] >=1.030 Urine Protein Negative mg/dL (NEG-TRACE) Urine Glucose (UA) Negative mg/dL (NEG) Urine Ketones (Stick) 15 mg/dL (NEG) Urine Blood Negative (NEG) Urine Nitrite Negative (NEG) Urine Bilirubin Negative (NEG) Urine Urobilinogen Dipstick 0.2 mg/dL (0.2 mg/dL) Urine Leukocyte Esterase Negative (NEG) Urine RBC Occ /HPF (0-2) Urine WBC 20-40 /HPF (0-4) Urine Squamous Epithelial Cells Few /LPF Urine Transitional Epithelial Cells Occ /LPF Urine Bacteria 0 /HPF (0-FEW) Urine Hyaline Casts Few /HPF Urine Mucus Slight /LPF Stool Occult Blood Negative (NEG) Laboratory Tests Test 05/16/18 17:19 05/16/18 21:00 05/17/18 02:00 05/17/18 04:30 White Blood Count 4.3 x10^3/uL (4.0-11.0) 3.8 x10^3/uL (4.0-11.0) Red Blood Count 3.80 x10^6/uL (3.50-5.40) 3.41 x10^6/uL (3.50-5.40) Hemoglobin 10.9 g/dL (12.0-15.5) 9.8 g/dL (12.0-15.5) Hematocrit 33.2 % (36.0-47.0) 29.8 % (36.0-47.0) Mean Corpuscular Volume 87 fL (79-100) 88 fL (79-100) Mean Corpuscular Hemoglobin 29 pg (25-35) 29 pg (25-35) Mean Corpuscular Hemoglobin Concent 33 g/dL (31-37) 33 g/dL (31-37) Red Cell Distribution Width 18.9 % (11.5-14.5) 19.6 % (11.5-14.5) Platelet Count 486 x10^3/uL (140-400) 418 x10^3/uL (140-400) Neutrophils (%) (Auto) 60 % (31-73) 49 % (31-73) Lymphocytes (%) (Auto) 23 % (24-48) 28 % (24-48) Monocytes (%) (Auto) 16 % (0-9) 18 % (0-9) Eosinophils (%) (Auto) 1 % (0-3) 4 % (0-3) Basophils (%) (Auto) 1 % (0-3) 1 % (0-3) Neutrophils # (Auto) 2.6 x10^3uL (1.8-7.7) 1.9 x10^3uL (1.8-7.7) Lymphocytes # (Auto) 1.0 x10^3/uL (1.0-4.8) 1.1 x10^3/uL (1.0-4.8) Monocytes # (Auto) 0.7 x10^3/uL (0.0-1.1) 0.7 x10^3/uL (0.0-1.1) Eosinophils # (Auto) 0.0 x10^3/uL (0.0-0.7) 0.1 x10^3/uL (0.0-0.7) Basophils # (Auto) 0.0 x10^3/uL (0.0-0.2) 0.0 x10^3/uL (0.0-0.2) Sodium Level 139 mmol/L (136-145) 141 mmol/L (136-145) Potassium Level 3.4 mmol/L (3.5-5.1) 3.1 mmol/L (3.5-5.1) Chloride Level 100 mmol/L (98-107) 105 mmol/L (98-107) Carbon Dioxide Level 30 mmol/L (21-32) 25 mmol/L (21-32) Anion Gap 9 (6-14) 11 (6-14) Blood Urea Nitrogen 16 mg/dL (7-20) 14 mg/dL (7-20) Creatinine 0.8 mg/dL (0.6-1.0) 0.6 mg/dL (0.6-1.0) Estimated GFR (Cockcroft-Gault) 70.7 98.5 BUN/Creatinine Ratio 20 (6-20) Glucose Level 105 mg/dL (70-99) 68 mg/dL (70-99) Calcium Level 8.7 mg/dL (8.5-10.1) 7.7 mg/dL (8.5-10.1) Total Bilirubin 0.3 mg/dL (0.2-1.0) Aspartate Amino Transf (AST/SGOT) 17 U/L (15-37) Alanine Aminotransferase (ALT/SGPT) 14 U/L (14-59) Alkaline Phosphatase 85 U/L (46-116) Total Protein 6.1 g/dL (6.4-8.2) Albumin 2.2 g/dL (3.4-5.0) Albumin/Globulin Ratio 0.6 (1.0-1.7) Lipase 284 U/L (73-393) Urine Collection Type Unknown Urine Color Yellow Urine Clarity Clear Urine pH 7.0 Urine Specific [place] >=1.030 Urine Protein Negative mg/dL (NEG-TRACE) Urine Glucose (UA) Negative mg/dL (NEG) Urine Ketones (Stick) 15 mg/dL (NEG) Urine Blood Negative (NEG) Urine Nitrite Negative (NEG) Urine Bilirubin Negative (NEG) Urine Urobilinogen Dipstick 0.2 mg/dL (0.2 mg/dL) Urine Leukocyte Esterase Negative (NEG) Urine RBC Occ /HPF (0-2) Urine WBC 20-40 /HPF (0-4) Urine Squamous Epithelial Cells Few /LPF Urine Transitional Epithelial Cells Occ /LPF Urine Bacteria 0 /HPF (0-FEW) Urine Hyaline Casts Few /HPF Urine Mucus Slight /LPF Stool Occult Blood Negative (NEG) Images Images CT reviewed, SBO picture Assessment/Plan Assessment/Plan 72 year old female with vomiting, some diarrhea, CT with SBO picture; similar CT as in March which resolved. ?recurrent mechanical SBO vs enteritis/ileus. Rec: plan initially for NG decompression, hydration, pain control. Abdominal series in AM, possible SB series tomorrow as well. I will follow. EVANS PERERA MD May 17, 2018 09:03
[2018-05-17] MEDS ORDERED: MOXI400T PO (09:33)
--- NOTE | 2018-05-17 09:44 | PDOC ---
PROGRESS NOTES Subjective Subjective Patient denies abdominal pain or nausea at this time. Objective Objective Vital Signs Date Time Temp Pulse Resp B/P (MAP) Pulse Ox O2 Delivery O2 Flow Rate FiO2 05/17/18 07:00 98.3 89 18 146/71 (96) 98 Room Air 98.3 Intake and Output 05/17/18 06:59 Intake Total 1300 ml Output Total 1 ml Balance 1299 ml Intake Oral 0 ml IV Total 1300 ml Output Urine Total 1 ml Physical Exam Abdomen: Normal bowel sounds, Soft, No tenderness Heart: Regular rate Extremities: No edema General: Alert, Oriented X3, No acute distress Lungs: Clear to auscultation Assessment Assessment Problems Medical Problems: (1) SBO (small bowel obstruction) Status: Acute Plan Plan of Care 1. Partial small bowel obstruction - good BS, had BM today (formed). Abdominal exam benign and patient without symptoms. Little output from NG tube. Will try clamping tube and advance diet if OK with General Surgery. 2. possible UTI - 20-40 WBC's in urine. Await urine culture results. 3. hx lung abscess - diagnosed during hospitalization last month. Patient is to be on Avelox for 6 weeks, will continue here. 4. HTN with hx SVT - continue Metoprolol daily. 5. hypokalemia - resume po replacement. 6. chronic diarrhea - patient reports had not been troublesome recently, was not taking any medication for it except prn. Comment Review of Relevant I have reviewed the following items jackie (where applicable) has been applied. Labs Laboratory Tests Test 05/16/18 17:19 05/16/18 21:00 05/17/18 02:00 05/17/18 04:30 White Blood Count 4.3 x10^3/uL (4.0-11.0) 3.8 x10^3/uL (4.0-11.0) Red Blood Count 3.80 x10^6/uL (3.50-5.40) 3.41 x10^6/uL (3.50-5.40) Hemoglobin 10.9 g/dL (12.0-15.5) 9.8 g/dL (12.0-15.5) Hematocrit 33.2 % (36.0-47.0) 29.8 % (36.0-47.0) Mean Corpuscular Volume 87 fL (79-100) 88 fL (79-100) Mean Corpuscular Hemoglobin 29 pg (25-35) 29 pg (25-35) Mean Corpuscular Hemoglobin Concent 33 g/dL (31-37) 33 g/dL (31-37) Red Cell Distribution Width 18.9 % (11.5-14.5) 19.6 % (11.5-14.5) Platelet Count 486 x10^3/uL (140-400) 418 x10^3/uL (140-400) Neutrophils (%) (Auto) 60 % (31-73) 49 % (31-73) Lymphocytes (%) (Auto) 23 % (24-48) 28 % (24-48) Monocytes (%) (Auto) 16 % (0-9) 18 % (0-9) Eosinophils (%) (Auto) 1 % (0-3) 4 % (0-3) Basophils (%) (Auto) 1 % (0-3) 1 % (0-3) Neutrophils # (Auto) 2.6 x10^3uL (1.8-7.7) 1.9 x10^3uL (1.8-7.7) Lymphocytes # (Auto) 1.0 x10^3/uL (1.0-4.8) 1.1 x10^3/uL (1.0-4.8) Monocytes # (Auto) 0.7 x10^3/uL (0.0-1.1) 0.7 x10^3/uL (0.0-1.1) Eosinophils # (Auto) 0.0 x10^3/uL (0.0-0.7) 0.1 x10^3/uL (0.0-0.7) Basophils # (Auto) 0.0 x10^3/uL (0.0-0.2) 0.0 x10^3/uL (0.0-0.2) Sodium Level 139 mmol/L (136-145) 141 mmol/L (136-145) Potassium Level 3.4 mmol/L (3.5-5.1) 3.1 mmol/L (3.5-5.1) Chloride Level 100 mmol/L (98-107) 105 mmol/L (98-107) Carbon Dioxide Level 30 mmol/L (21-32) 25 mmol/L (21-32) Anion Gap 9 (6-14) 11 (6-14) Blood Urea Nitrogen 16 mg/dL (7-20) 14 mg/dL (7-20) Creatinine 0.8 mg/dL (0.6-1.0) 0.6 mg/dL (0.6-1.0) Estimated GFR (Cockcroft-Gault) 70.7 98.5 BUN/Creatinine Ratio 20 (6-20) Glucose Level 105 mg/dL (70-99) 68 mg/dL (70-99) Calcium Level 8.7 mg/dL (8.5-10.1) 7.7 mg/dL (8.5-10.1) Total Bilirubin 0.3 mg/dL (0.2-1.0) Aspartate Amino Transf (AST/SGOT) 17 U/L (15-37) Alanine Aminotransferase (ALT/SGPT) 14 U/L (14-59) Alkaline Phosphatase 85 U/L (46-116) Total Protein 6.1 g/dL (6.4-8.2) Albumin 2.2 g/dL (3.4-5.0) Albumin/Globulin Ratio 0.6 (1.0-1.7) Lipase 284 U/L (73-393) Urine Collection Type Unknown Urine Color Yellow Urine Clarity Clear Urine pH 7.0 Urine Specific [place] >=1.030 Urine Protein Negative mg/dL (NEG-TRACE) Urine Glucose (UA) Negative mg/dL (NEG) Urine Ketones (Stick) 15 mg/dL (NEG) Urine Blood Negative (NEG) Urine Nitrite Negative (NEG) Urine Bilirubin Negative (NEG) Urine Urobilinogen Dipstick 0.2 mg/dL (0.2 mg/dL) Urine Leukocyte Esterase Negative (NEG) Urine RBC Occ /HPF (0-2) Urine WBC 20-40 /HPF (0-4) Urine Squamous Epithelial Cells Few /LPF Urine Transitional Epithelial Cells Occ /LPF Urine Bacteria 0 /HPF (0-FEW) Urine Hyaline Casts Few /HPF Urine Mucus Slight /LPF Stool Occult Blood Negative (NEG) Laboratory Tests Test 05/16/18 17:19 05/16/18 21:00 05/17/18 02:00 05/17/18 04:30 White Blood Count 4.3 x10^3/uL (4.0-11.0) 3.8 x10^3/uL (4.0-11.0) Red Blood Count 3.80 x10^6/uL (3.50-5.40) 3.41 x10^6/uL (3.50-5.40) Hemoglobin 10.9 g/dL (12.0-15.5) 9.8 g/dL (12.0-15.5) Hematocrit 33.2 % (36.0-47.0) 29.8 % (36.0-47.0) Mean Corpuscular Volume 87 fL (79-100) 88 fL (79-100) Mean Corpuscular Hemoglobin 29 pg (25-35) 29 pg (25-35) Mean Corpuscular Hemoglobin Concent 33 g/dL (31-37) 33 g/dL (31-37) Red Cell Distribution Width 18.9 % (11.5-14.5) 19.6 % (11.5-14.5) Platelet Count 486 x10^3/uL (140-400) 418 x10^3/uL (140-400) Neutrophils (%) (Auto) 60 % (31-73) 49 % (31-73) Lymphocytes (%) (Auto) 23 % (24-48) 28 % (24-48) Monocytes (%) (Auto) 16 % (0-9) 18 % (0-9) Eosinophils (%) (Auto) 1 % (0-3) 4 % (0-3) Basophils (%) (Auto) 1 % (0-3) 1 % (0-3) Neutrophils # (Auto) 2.6 x10^3uL (1.8-7.7) 1.9 x10^3uL (1.8-7.7) Lymphocytes # (Auto) 1.0 x10^3/uL (1.0-4.8) 1.1 x10^3/uL (1.0-4.8) Monocytes # (Auto) 0.7 x10^3/uL (0.0-1.1) 0.7 x10^3/uL (0.0-1.1) Eosinophils # (Auto) 0.0 x10^3/uL (0.0-0.7) 0.1 x10^3/uL (0.0-0.7) Basophils # (Auto) 0.0 x10^3/uL (0.0-0.2) 0.0 x10^3/uL (0.0-0.2) Sodium Level 139 mmol/L (136-145) 141 mmol/L (136-145) Potassium Level 3.4 mmol/L (3.5-5.1) 3.1 mmol/L (3.5-5.1) Chloride Level 100 mmol/L (98-107) 105 mmol/L (98-107) Carbon Dioxide Level 30 mmol/L (21-32) 25 mmol/L (21-32) Anion Gap 9 (6-14) 11 (6-14) Blood Urea Nitrogen 16 mg/dL (7-20) 14 mg/dL (7-20) Creatinine 0.8 mg/dL (0.6-1.0) 0.6 mg/dL (0.6-1.0) Estimated GFR (Cockcroft-Gault) 70.7 98.5 BUN/Creatinine Ratio 20 (6-20) Glucose Level 105 mg/dL (70-99) 68 mg/dL (70-99) Calcium Level 8.7 mg/dL (8.5-10.1) 7.7 mg/dL (8.5-10.1) Total Bilirubin 0.3 mg/dL (0.2-1.0) Aspartate Amino Transf (AST/SGOT) 17 U/L (15-37) Alanine Aminotransferase (ALT/SGPT) 14 U/L (14-59) Alkaline Phosphatase 85 U/L (46-116) Total Protein 6.1 g/dL (6.4-8.2) Albumin 2.2 g/dL (3.4-5.0) Albumin/Globulin Ratio 0.6 (1.0-1.7) Lipase 284 U/L (73-393) Urine Collection Type Unknown Urine Color Yellow Urine Clarity Clear Urine pH 7.0 Urine Specific [place] >=1.030 Urine Protein Negative mg/dL (NEG-TRACE) Urine Glucose (UA) Negative mg/dL (NEG) Urine Ketones (Stick) 15 mg/dL (NEG) Urine Blood Negative (NEG) Urine Nitrite Negative (NEG) Urine Bilirubin Negative (NEG) Urine Urobilinogen Dipstick 0.2 mg/dL (0.2 mg/dL) Urine Leukocyte Esterase Negative (NEG) Urine RBC Occ /HPF (0-2) Urine WBC 20-40 /HPF (0-4) Urine Squamous Epithelial Cells Few /LPF Urine Transitional Epithelial Cells Occ /LPF Urine Bacteria 0 /HPF (0-FEW) Urine Hyaline Casts Few /HPF Urine Mucus Slight /LPF Stool Occult Blood Negative (NEG) Medications Current Medications Ondansetron HCl (Zofran) 4 mg 1X ONCE IV ; Start 05/16/18 at 17:00; Stop at 17:01; Status DC Sodium Chloride 1,000 ml @ 1,000 mls/hr 1X ONCE IV Last administered on at 17:24; Start 05/16/18 at 17:00; Stop 05/16/18 at 17:59; Status DC Iohexol (Omnipaque 300 Mg/ml) 75 ml 1X ONCE IV Last administered on 05/16/18at 18:04; Start 05/16/18 at 18:00; Stop 05/16/18 at 18:01; Status DC Ondansetron HCl (Zofran) 4 mg PRN Q8HRS PRN IV NAUSEA/VOMITING; Start 05/16/18 at 19:30; Stop 05/17/18 at 19:29 Sodium Chloride 1,000 ml @ 100 mls/hr 1X ONCE IV Last administered on at 19:36; Start 05/16/18 at 19:30; Stop 05/17/18 at 05:29; Status DC Fentanyl Citrate (Fentanyl 2ml Vial) 50 mcg PRN Q4HRS PRN IV PAIN; Start at 19:30 Ceftriaxone Sodium (Rocephin) 1 gm Q24H IVP ; Start 05/17/18 at 10:00; Stop at 10:00; Status DC Diphenoxylate HCl/ Atropine (Lomotil) 1 tab PRN QID PRN PO DIARRHEA; Start at 09:45; Status UNV Famotidine (Pepcid) 20 mg QHS PO ; Start 05/17/18 at 21:00; Status UNV Acetaminophen/ Hydrocodone Bitart (Lortab 5/325) 1 tab PRN Q4HRS PRN PO MILD PAIN; Start 05/17/18 at 09:45; Status UNV Metoprolol Succinate (Toprol Xl) 50 mg HS PO ; Start 05/17/18 at 21:00; Status UNV Non-Formulary Medication (Levocetirizine Dihydrochloride (Xyzal)) 5 mg DAILY PO ; Start 05/18/18 at 09:00; Status UNV Non-Formulary Medication (Moxifloxacin Hcl (Avelox)) 1 tab DAILY PO ; Start at 09:00; Status UNV Non-Formulary Medication (Ondansetron Hcl (Zofran)) 4 mg BID PRN PO NAUSEA/ VOMITING; Start 05/17/18 at 09:45; Status UNV Non-Formulary Medication (Potassium Chloride (Klor-Con 10)) 10 meq DAILY PO ; Start 05/18/18 at 09:00; Status UNV Non-Formulary Medication (Propylene Glycol/Peg 400 (Systane Ultra 0.4-0.3% Eye Drp)) 10 ml BID OP ; Start 05/17/18 at 21:00; Status UNV Active Scripts Active Avelox (Moxifloxacin Hcl) 400 Mg Tablet 1 Tab PO DAILY Klor-Con 10 (Potassium Chloride) 10 Meq Tablet.er 10 Meq PO DAILY 30 Days Diphenoxylate-Atropine Tablet (Diphenoxylate Hcl/Atropine) 1 Each Tablet 1 Tab PO PRN QID PRN 30 Days Prevalite Packet (Cholestyramine/Aspartame) 4 Gm Powd.pack 4 Gm PO BID 60 Days Famotidine 20 Mg Tablet 20 Mg PO QHS 60 Days Aspirin Ec (Aspirin) 81 Mg Tablet.dr 81 Mg PO DAILYWBKFT 30 Days Toprol Xl (Metoprolol Succinate) 50 Mg Tab.er.24h 50 Mg PO HS 30 Days Hydrocodone-Apap 5-325 (Hydrocodone Bit/Acetaminophen) 1 Tab Tablet 1 Tab PO PRN Q4HRS PRN Reported Imodium A-D (Loperamide HCl) 2 Mg Capsule 2 Mg PO PRN PRN Xyzal (Levocetirizine Dihydrochloride) 5 Mg Tablet 5 Mg PO DAILY Oxybutynin Chloride 5 Mg Tablet 5 Mg PO TID Zofran (Ondansetron Hcl) 4 Mg Tablet 4 Mg PO BID PRN Multivitamins (Multivitamin) 1 Each Tablet 1 Each PO DAILY Vitamin D3 (Cholecalciferol (Vitamin D3)) 1,000 Unit Tablet 1,000 Unit PO DAILY Systane Ultra 0.4-0.3% Eye Drp (Propylene Glycol/Peg 400) 10 Ml Drops 10 Ml OP BID Vitals/I & O Vital Sign - Last 24 Hours 05/16/18 05/16/18 05/16/18 05/16/18 16:53 17:30 18:40 19:10 Temp 98.1 98.1 Pulse 92 94 88 82 Resp 16 14 16 16 B/P (MAP) 151/68 (95) 143/73 (96) 162/77 (105) 157/88 (111) Pulse Ox 98 99 98 98 O2 Delivery Room Air Room Air Room Air Room Air 05/16/18 05/16/18 05/16/18 05/16/18 19:40 20:10 20:40 23:11 Temp 98.3 98.3 Pulse 92 90 96 84 Resp 16 16 16 B/P (MAP) 172/83 (112) 174/82 (112) 157/85 (109) 157/82 (107) Pulse Ox 99 99 99 94 O2 Delivery Room Air Room Air Room Air Room Air 05/17/18 05/17/18 03:17 07:00 Temp 98.7 98.3 98.7 98.3 Pulse 91 89 Resp 20 18 B/P (MAP) 150/80 (103) 146/71 (96) Pulse Ox 100 98 O2 Delivery Room Air Room Air Intake and Output 05/16/18 05/16/18 05/17/18 14:59 22:59 06:59 Intake Total 1300 ml 0 ml Output Total 1 ml Balance 1300 ml -1 ml CHELSIE MAYNARD MD May 17, 2018 09:44
[2018-05-17] MEDS ORDERED: ONDANSETRON ODT 4 MG TAB.RAPDIS. PO PRN (09:45)
[2018-05-17] MEDS: POLYVINYL ALCOHOL 1.4% OPHTH SOLUTION 15ML BOTTLE. OU SCH ×2 (09:45→20:56)
[2018-05-17] MEDS ORDERED: HYDROcodone/APAP 5/325MG 1 TAB TABLET PO PRN (09:45)
[2018-05-17] MEDS ORDERED: cefTRIAXone IV Push 1 GM VIAL. IVP SCH (10:00)
[2018-05-17] MEDS: CETIRIZINE HCL 10 MG TABLET. PO SCH (10:00)
[2018-05-17] MEDS: POTASSIUM CHLORIDE 10 MEQ TABLET.ER. PO SCH (10:00)
--- NOTE | 2018-05-17 10:00 | NUR ---
[facility] down from [id number]. Downtime protocol initiated. See paper charting for details.
--- NOTE | 2018-05-17 10:53 | HP ---
ADMIT DATE: 05/16/2018 CHIEF COMPLAINT: Abdominal pain and nausea. HISTORY OF PRESENT ILLNESS: The patient is a 72-year-old female who was hospitalized at [place] last month for treatment of a small-bowel obstruction. She had been discharged home and was doing fairly well until 2 days ago when she had one episode of emesis and then developed some intermittent crampy lower abdominal pain. Her symptoms felt similar to those she experienced with her small-bowel obstruction last month, so she came to the Emergency Room. A CT showed partial small-bowel obstruction and the patient was admitted for further care. PAST MEDICAL HISTORY: Recent small-bowel obstruction; lung abscess right lower lobe, diagnosed 04/08; previous SVT; hypertension; hyperlipidemia; history of colon cancer; history of pathologic right hip fracture; osteopenia; irritable bowel syndrome with chronic diarrhea; malnutrition; polio as a child. PAST SURGICAL HISTORY: Laparoscopic cholecystectomy 03/07, rectal cancer with colostomy and subsequent takedown, tonsillectomy, eyelid surgery, breast biopsy, bunion surgery. ALLERGIES: The patient is allergic to CODEINE and LATEX. HOME MEDICATIONS: Aspirin 81 mg daily, vitamin D 1000 units daily, diphenoxylate p.r.n. diarrhea, famotidine 20 mg at bedtime, [place] 5/325 p.r.n., Xyzal 5 mg daily, Imodium p.r.n., Toprol-XL 50 mg daily, Avelox 400 mg daily, multivitamin daily, Zofran p.r.n., oxybutynin 5 mg t.i.d., potassium 10 mEq daily, Systane eyedrops. FAMILY HISTORY: Noncontributory. SOCIAL HISTORY: The patient is . She smoked cigarettes in the distant past. She does not drink alcohol to excess. REVIEW OF SYSTEMS: The patient denies fever or chills. She denies cough or shortness of breath. She denies chest pain or palpitations. She had one episode of emesis 2 days ago, but has not had any emesis since. She has intermittent diarrhea, which is not unusual for her. She has had a bowel movement since admission to the hospital. The patient denies dysuria or increased urinary frequency. PHYSICAL EXAMINATION: GENERAL: The patient is alert and oriented x 3, resting comfortably in bed, in no acute distress. HEENT: PERRL, EOMI, sclerae clear. Oropharynx: Mucous membranes moist. NG tube is in place with small amount of bilious drainage. CHEST: Clear to auscultation. CARDIOVASCULAR: Regular rhythm without murmur. ABDOMEN: Soft, nontender, normoactive bowel sounds are present. EXTREMITIES: Without edema. ASSESSMENT AND PLAN: 1. Partial small-bowel obstruction. The patient has good bowel sounds and a benign abdominal exam today. She has already had at least one bowel movement. There is little output from the NG tube. We will try clamping the tube and advancing her diet if this is okay with General Surgery. Dr. Gary has already seen her and recommended conservative care. 2. Possible urinary tract infection. The patient had 20-40 wbc's in her urine, but also some squamous epithelial cells. We will await urine culture results. The patient is without symptoms. 3. History of lung abscess. The patient does not appear to have symptoms from this. Dr. Marcial had advised that she be on the Avelox for 6 weeks, so we will continue that and she is to follow up with him as an outpatient after completing treatment. 4. Hypertension with history of supraventricular tachycardia. Continue metoprolol daily. 5. Hypokalemia. The patient's potassium is mildly low at 3.1. We will resume oral replacement and follow this. 6. Chronic diarrhea. This has not been too troublesome for her. We will continue her p.r.n. diphenoxylate. CHELSIE MAYNARD MD DR: NICCI/curtis JOB#: [id number] / [id number] CELI
--- NOTE | 2018-05-17 11:00 | NUR ---
Received telephone orders from Dr. Gary to keep NG tube to low intermittent suction and NPO.
--- NOTE | 2018-05-17 14:47 | NUR ---
SW following for discharge planning. Chart reviewed. Pt is from home with spouse and currently on room air. No discharge needs or recommendations noted at this time. SW will continue to follow for pending discharge needs.
[2018-05-17 15:00] VITALS: BP 150/74
[2018-05-17] MEDS: IV NORMAL SALINE 1000ML BAG 1,000 ML IV SCH (16:44)
[2018-05-17 19:05] VITALS: BP 155/56
[2018-05-17] MEDS: METOPROLOL SUCC 24HR ER 50 MG TAB.ER.24H. PO SCH (20:56)
[2018-05-17] MEDS: FAMOTIDINE 20 MG TABLET. PO SCH (20:56)
[2018-05-17 23:23] VITALS: BP 132/58
[2018-05-18 03:29] VITALS: BP 131/64
[2018-05-18 05:11] LABS: CALCIUM 7.3 mg/dL (8.5-10.1); CREATININE 0.6 mg/dL (0.6-1.0); GFR 98.5
[2018-05-18 05:12] LABS: POTASSIUM 2.9 mmol/L (3.5-5.1)
[2018-05-18] MEDS: IV NORMAL SALINE 1000ML BAG 1,000 ML IV SCH (06:04)
[2018-05-18] MEDS: POTASSIUM CHLORIDE 10MEQ 100 ML IV SCH ×3 (06:04→10:27)
--- NOTE | 2018-05-18 06:40 | NUR ---
Pt refusing to take po meds this am. Pt states she got nauseated last noc when taking her medication through the ng tube and wants meds to be changed to IV.
[2018-05-18 07:00] VITALS: BP 125/53
[2018-05-18] MEDS: POTASSIUM CHLORIDE 10 MEQ TABLET.ER. PO SCH (08:00)
--- NOTE | 2018-05-18 08:41 | PDOC ---
PROGRESS NOTES Subjective Subjective Patient denies abdominal pain. Had some nausea with po meds yesterday but none since. Several bowel movements yesterday. Objective Objective Vital Signs Date Time Temp Pulse Resp B/P (MAP) Pulse Ox O2 Delivery O2 Flow Rate FiO2 05/18/18 07:00 97.7 78 16 125/53 (77) 100 Room Air 97.7 Intake and Output 05/18/18 07:00 Intake Total 0 ml Output Total 350 ml Balance -350 ml Intake Oral 0 ml Gastric Drainage Total 350 ml # Voids 5 Physical Exam Abdomen: Normal bowel sounds, Soft, No tenderness Heart: Regular rate Extremities: No edema General: Alert, Oriented X3, No acute distress Lungs: Clear to auscultation Assessment Assessment Problems Medical Problems: (1) SBO (small bowel obstruction) Status: Acute Plan Plan of Care 1. Partial SBO - improving. Patient feeling hungry. May be able to try clears today if Dr Gary in agreement. 2. hypokalemia - replace IV and change IVF to D5 1/2 NS with 20 KCl. 3. possible UTI - culture pending. 4. lung abscess - on Levaquin now per pharmacy substitution. Has not received for 2 days as it was ordered po and patient declines it. Will change to IV. 5. HTN with hx SVT - stable on her usual Metoprolol which she is taking po without problems. Comment Review of Relevant I have reviewed the following items jackie (where applicable) has been applied. Labs Laboratory Tests Test 05/16/18 17:19 05/16/18 21:00 05/17/18 02:00 05/17/18 04:30 White Blood Count 4.3 x10^3/uL (4.0-11.0) 3.8 x10^3/uL (4.0-11.0) Red Blood Count 3.80 x10^6/uL (3.50-5.40) 3.41 x10^6/uL (3.50-5.40) Hemoglobin 10.9 g/dL (12.0-15.5) 9.8 g/dL (12.0-15.5) Hematocrit 33.2 % (36.0-47.0) 29.8 % (36.0-47.0) Mean Corpuscular Volume 87 fL (79-100) 88 fL (79-100) Mean Corpuscular Hemoglobin 29 pg (25-35) 29 pg (25-35) Mean Corpuscular Hemoglobin Concent 33 g/dL (31-37) 33 g/dL (31-37) Red Cell Distribution Width 18.9 % (11.5-14.5) 19.6 % (11.5-14.5) Platelet Count 486 x10^3/uL (140-400) 418 x10^3/uL (140-400) Neutrophils (%) (Auto) 60 % (31-73) 49 % (31-73) Lymphocytes (%) (Auto) 23 % (24-48) 28 % (24-48) Monocytes (%) (Auto) 16 % (0-9) 18 % (0-9) Eosinophils (%) (Auto) 1 % (0-3) 4 % (0-3) Basophils (%) (Auto) 1 % (0-3) 1 % (0-3) Neutrophils # (Auto) 2.6 x10^3uL (1.8-7.7) 1.9 x10^3uL (1.8-7.7) Lymphocytes # (Auto) 1.0 x10^3/uL (1.0-4.8) 1.1 x10^3/uL (1.0-4.8) Monocytes # (Auto) 0.7 x10^3/uL (0.0-1.1) 0.7 x10^3/uL (0.0-1.1) Eosinophils # (Auto) 0.0 x10^3/uL (0.0-0.7) 0.1 x10^3/uL (0.0-0.7) Basophils # (Auto) 0.0 x10^3/uL (0.0-0.2) 0.0 x10^3/uL (0.0-0.2) Sodium Level 139 mmol/L (136-145) 141 mmol/L (136-145) Potassium Level 3.4 mmol/L (3.5-5.1) 3.1 mmol/L (3.5-5.1) Chloride Level 100 mmol/L (98-107) 105 mmol/L (98-107) Carbon Dioxide Level 30 mmol/L (21-32) 25 mmol/L (21-32) Anion Gap 9 (6-14) 11 (6-14) Blood Urea Nitrogen 16 mg/dL (7-20) 14 mg/dL (7-20) Creatinine 0.8 mg/dL (0.6-1.0) 0.6 mg/dL (0.6-1.0) Estimated GFR (Cockcroft-Gault) 70.7 98.5 BUN/Creatinine Ratio 20 (6-20) Glucose Level 105 mg/dL (70-99) 68 mg/dL (70-99) Calcium Level 8.7 mg/dL (8.5-10.1) 7.7 mg/dL (8.5-10.1) Total Bilirubin 0.3 mg/dL (0.2-1.0) Aspartate Amino Transf (AST/SGOT) 17 U/L (15-37) Alanine Aminotransferase (ALT/SGPT) 14 U/L (14-59) Alkaline Phosphatase 85 U/L (46-116) Total Protein 6.1 g/dL (6.4-8.2) Albumin 2.2 g/dL (3.4-5.0) Albumin/Globulin Ratio 0.6 (1.0-1.7) Lipase 284 U/L (73-393) Urine Collection Type Unknown Urine Color Yellow Urine Clarity Clear Urine pH 7.0 Urine Specific [place] >=1.030 Urine Protein Negative mg/dL (NEG-TRACE) Urine Glucose (UA) Negative mg/dL (NEG) Urine Ketones (Stick) 15 mg/dL (NEG) Urine Blood Negative (NEG) Urine Nitrite Negative (NEG) Urine Bilirubin Negative (NEG) Urine Urobilinogen Dipstick 0.2 mg/dL (0.2 mg/dL) Urine Leukocyte Esterase Negative (NEG) Urine RBC Occ /HPF (0-2) Urine WBC 20-40 /HPF (0-4) Urine Squamous Epithelial Cells Few /LPF Urine Transitional Epithelial Cells Occ /LPF Urine Bacteria 0 /HPF (0-FEW) Urine Hyaline Casts Few /HPF Urine Mucus Slight /LPF Stool Occult Blood Negative (NEG) Clostridium difficile Toxin B Gene Negative (Negative) Test 05/18/18 03:55 Sodium Level 140 mmol/L (136-145) Potassium Level 2.9 mmol/L (3.5-5.1) Chloride Level 105 mmol/L (98-107) Carbon Dioxide Level 21 mmol/L (21-32) Anion Gap 14 (6-14) Blood Urea Nitrogen 8 mg/dL (7-20) Creatinine 0.6 mg/dL (0.6-1.0) Estimated GFR (Cockcroft-Gault) 98.5 Glucose Level 42 mg/dL (70-99) Calcium Level 7.3 mg/dL (8.5-10.1) Laboratory Tests Test 05/18/18 03:55 Sodium Level 140 mmol/L (136-145) Potassium Level 2.9 mmol/L (3.5-5.1) Chloride Level 105 mmol/L (98-107) Carbon Dioxide Level 21 mmol/L (21-32) Anion Gap 14 (6-14) Blood Urea Nitrogen 8 mg/dL (7-20) Creatinine 0.6 mg/dL (0.6-1.0) Estimated GFR (Cockcroft-Gault) 98.5 Glucose Level 42 mg/dL (70-99) Calcium Level 7.3 mg/dL (8.5-10.1) Medications Current Medications Ondansetron HCl (Zofran) 4 mg 1X ONCE IV ; Start 05/16/18 at 17:00; Stop at 17:01; Status DC Sodium Chloride 1,000 ml @ 1,000 mls/hr 1X ONCE IV Last administered on at 17:24; Start 05/16/18 at 17:00; Stop 05/16/18 at 17:59; Status DC Iohexol (Omnipaque 300 Mg/ml) 75 ml 1X ONCE IV Last administered on 05/16/18at 18:04; Start 05/16/18 at 18:00; Stop 05/16/18 at 18:01; Status DC Ondansetron HCl (Zofran) 4 mg PRN Q8HRS PRN IV NAUSEA/VOMITING; Start 05/16/18 at 19:30; Stop 05/17/18 at 19:29; Status DC Sodium Chloride 1,000 ml @ 100 mls/hr 1X ONCE IV Last administered on at 19:36; Start 05/16/18 at 19:30; Stop 05/17/18 at 05:29; Status DC Fentanyl Citrate (Fentanyl 2ml Vial) 50 mcg PRN Q4HRS PRN IV PAIN; Start at 19:30 Ceftriaxone Sodium (Rocephin) 1 gm Q24H IVP ; Start 05/17/18 at 10:00; Stop at 10:00; Status DC Diphenoxylate HCl/ Atropine (Lomotil) 1 tab PRN QID PRN PO DIARRHEA; Start at 09:45 Famotidine (Pepcid) 20 mg QHS PO Last administered on 05/17/18at 20:56; Start at 21:00 Acetaminophen/ Hydrocodone Bitart (Lortab 5/325) 1 tab PRN Q4HRS PRN PO MILD PAIN; Start 05/17/18 at 09:45 Metoprolol Succinate (Toprol Xl) 50 mg HS PO Last administered on 05/17/18at 20: 56; Start 05/17/18 at 21:00 Cetirizine HCl (ZyrTEC) 10 mg DAILY PO ; Start 05/17/18 at 10:00 Levofloxacin (Levaquin) 500 mg DAILY06 PO ; Start 05/17/18 at 10:00 Ondansetron HCl (Zofran Odt) 4 mg PRN BID PRN PO NAUSEA/VOMITING; Start at 09:45 Potassium Chloride (Klor-Con) 10 meq DAILYWBKFT PO ; Start 05/17/18 at 10:00 Artificial Tears (Artificial Tears) 1 drop BID OU ; Start 05/17/18 at 09:45 Sodium Chloride 1,000 ml @ 100 mls/hr Q10H IV Last administered on 05/18/18at 06:04; Start 05/17/18 at 16:45; Stop 05/18/18 at 08:29; Status DC Potassium Chloride/Water 100 ml @ 100 mls/hr Q1H IV Last administered on at 06:04; Start 05/18/18 at 06:00; Stop 05/18/18 at 08:59 Potassium Chloride/Dextrose/ Sod Cl 1,000 ml @ 100 mls/hr Q10H IV ; Start 05/18 at 09:00 Potassium Chloride/Water 100 ml @ 100 mls/hr Q1H IV ; Start 05/18/18 at 09:00; Stop 05/18/18 at 12:59 Active Scripts Active Avelox (Moxifloxacin Hcl) 400 Mg Tablet 1 Tab PO DAILY Klor-Con 10 (Potassium Chloride) 10 Meq Tablet.er 10 Meq PO DAILY 30 Days Diphenoxylate-Atropine Tablet (Diphenoxylate Hcl/Atropine) 1 Each Tablet 1 Tab PO PRN QID PRN 30 Days Prevalite Packet (Cholestyramine/Aspartame) 4 Gm Powd.pack 4 Gm PO BID 60 Days Famotidine 20 Mg Tablet 20 Mg PO QHS 60 Days Aspirin Ec (Aspirin) 81 Mg Tablet.dr 81 Mg PO DAILYWBKFT 30 Days Toprol Xl (Metoprolol Succinate) 50 Mg Tab.er.24h 50 Mg PO HS 30 Days Hydrocodone-Apap 5-325 (Hydrocodone Bit/Acetaminophen) 1 Tab Tablet 1 Tab PO PRN Q4HRS PRN Reported Imodium A-D (Loperamide HCl) 2 Mg Capsule 2 Mg PO PRN PRN Xyzal (Levocetirizine Dihydrochloride) 5 Mg Tablet 5 Mg PO DAILY Oxybutynin Chloride 5 Mg Tablet 5 Mg PO TID Zofran (Ondansetron Hcl) 4 Mg Tablet 4 Mg PO BID PRN Multivitamins (Multivitamin) 1 Each Tablet 1 Each PO DAILY Vitamin D3 (Cholecalciferol (Vitamin D3)) 1,000 Unit Tablet 1,000 Unit PO DAILY Systane Ultra 0.4-0.3% Eye Drp (Propylene Glycol/Peg 400) 10 Ml Drops 10 Ml OP BID Vitals/I & O Vital Sign - Last 24 Hours 05/17/18 05/17/18 05/17/18 05/17/18 15:00 19:05 20:14 20:56 Temp 98.0 98.0 98.0 98.0 Pulse 87 93 93 Resp 16 18 B/P (MAP) 150/74 (99) 155/56 (89) 155/56 Pulse Ox 98 100 O2 Delivery Room Air Room Air Room Air 05/17/18 05/18/18 05/18/18 23:23 03:29 07:00 Temp 98.1 98.0 97.7 98.1 98.0 97.7 Pulse 81 72 78 Resp 20 18 16 B/P (MAP) 132/58 (82) 131/64 (86) 125/53 (77) Pulse Ox 96 99 100 O2 Delivery Room Air Room Air Room Air Intake and Output 05/17/18 05/17/18 05/18/18 15:00 23:00 07:00 Intake Total 0 ml 0 ml 0 ml Output Total 200 ml 150 ml Balance -200 ml -150 ml 0 ml CHELSIE MAYNARD MD May 18, 2018 08:40
[2018-05-18] MEDS: CETIRIZINE HCL 10 MG TABLET. PO SCH (09:00)
[2018-05-18] MEDS ORDERED: POTASSIUM CHLORIDE 10MEQ 100 ML IV SCH (09:00)
--- NOTE | 2018-05-18 09:08 | RAD ---
ACUTE ABDOMEN SERIES History: Small bowel obstruction Comparison: CT abdomen pelvis exam 05/16/2018 and acute abdominal radiographs April 14, 2018 Findings: Single view of the chest and single supine and upright views of the abdomen are submitted. No free air is identified. Patient is rotated for chest radiograph. There is no dependent pleural fluid or pneumothorax. There is likely emphysema. Previously on chest radiograph there was greater degree of right suprahilar opacity which has decreased although probably some degree of mild residual right perihilar opacity present. There is again gas dilatation of the small bowel, some gas and stool in the colon. There is now more gas than fluid in the dilated small bowel. Degree of small bowel dilatation may be somewhat greater. Degree of gastric distention is probably somewhat decreased compared with the recent CT. There has been cholecystectomy. There is again small granuloma left lateral lung base. Impression: 1. Comparing with the recent CT, there is persistent small bowel dilatation, now more gas than fluid although degree of dilatation probably increased, evidence of small bowel obstruction. No free air is identified by radiograph. Electronically signed by: Zechariah Langley MD (05/18/2018 9:05 AM) [facility] [id number]
[2018-05-18] MEDS: POLYVINYL ALCOHOL 1.4% OPHTH SOLUTION 15ML BOTTLE. OU SCH ×2 (09:27→21:00)
[2018-05-18 11:00] VITALS: BP 138/78
--- NOTE | 2018-05-18 11:34 | PDOC ---
AMARILIS ABDI SPINNING LATHE OPERATOR 05/18/18 1134: SURGICAL PROGRESS NOTE Subjective resting having some stools, + flatus no abdominal pain Vital Signs Vital Signs Date Time Temp Pulse Resp B/P (MAP) Pulse Ox O2 Delivery O2 Flow Rate FiO2 05/18/18 08:00 Room Air 05/18/18 07:00 97.7 78 16 125/53 (77) 100 97.7 I&O Intake and Output 05/18/18 07:00 Intake Total 0 ml Output Total 350 ml Balance -350 ml Intake Oral 0 ml Gastric Drainage Total 350 ml # Voids 5 General: Alert, Oriented X3, Cooperative, No acute distress HEENT: Other (ng in place) Abdomen: Soft, No tenderness, Other (ND) Labs Laboratory Tests Test 05/16/18 17:19 05/16/18 21:00 05/17/18 02:00 05/17/18 04:30 White Blood Count 4.3 x10^3/uL (4.0-11.0) 3.8 x10^3/uL (4.0-11.0) Red Blood Count 3.80 x10^6/uL (3.50-5.40) 3.41 x10^6/uL (3.50-5.40) Hemoglobin 10.9 g/dL (12.0-15.5) 9.8 g/dL (12.0-15.5) Hematocrit 33.2 % (36.0-47.0) 29.8 % (36.0-47.0) Mean Corpuscular Volume 87 fL (79-100) 88 fL (79-100) Mean Corpuscular Hemoglobin 29 pg (25-35) 29 pg (25-35) Mean Corpuscular Hemoglobin Concent 33 g/dL (31-37) 33 g/dL (31-37) Red Cell Distribution Width 18.9 % (11.5-14.5) 19.6 % (11.5-14.5) Platelet Count 486 x10^3/uL (140-400) 418 x10^3/uL (140-400) Neutrophils (%) (Auto) 60 % (31-73) 49 % (31-73) Lymphocytes (%) (Auto) 23 % (24-48) 28 % (24-48) Monocytes (%) (Auto) 16 % (0-9) 18 % (0-9) Eosinophils (%) (Auto) 1 % (0-3) 4 % (0-3) Basophils (%) (Auto) 1 % (0-3) 1 % (0-3) Neutrophils # (Auto) 2.6 x10^3uL (1.8-7.7) 1.9 x10^3uL (1.8-7.7) Lymphocytes # (Auto) 1.0 x10^3/uL (1.0-4.8) 1.1 x10^3/uL (1.0-4.8) Monocytes # (Auto) 0.7 x10^3/uL (0.0-1.1) 0.7 x10^3/uL (0.0-1.1) Eosinophils # (Auto) 0.0 x10^3/uL (0.0-0.7) 0.1 x10^3/uL (0.0-0.7) Basophils # (Auto) 0.0 x10^3/uL (0.0-0.2) 0.0 x10^3/uL (0.0-0.2) Sodium Level 139 mmol/L (136-145) 141 mmol/L (136-145) Potassium Level 3.4 mmol/L (3.5-5.1) 3.1 mmol/L (3.5-5.1) Chloride Level 100 mmol/L (98-107) 105 mmol/L (98-107) Carbon Dioxide Level 30 mmol/L (21-32) 25 mmol/L (21-32) Anion Gap 9 (6-14) 11 (6-14) Blood Urea Nitrogen 16 mg/dL (7-20) 14 mg/dL (7-20) Creatinine 0.8 mg/dL (0.6-1.0) 0.6 mg/dL (0.6-1.0) Estimated GFR (Cockcroft-Gault) 70.7 98.5 BUN/Creatinine Ratio 20 (6-20) Glucose Level 105 mg/dL (70-99) 68 mg/dL (70-99) Calcium Level 8.7 mg/dL (8.5-10.1) 7.7 mg/dL (8.5-10.1) Total Bilirubin 0.3 mg/dL (0.2-1.0) Aspartate Amino Transf (AST/SGOT) 17 U/L (15-37) Alanine Aminotransferase (ALT/SGPT) 14 U/L (14-59) Alkaline Phosphatase 85 U/L (46-116) Total Protein 6.1 g/dL (6.4-8.2) Albumin 2.2 g/dL (3.4-5.0) Albumin/Globulin Ratio 0.6 (1.0-1.7) Lipase 284 U/L (73-393) Urine Collection Type Unknown Urine Color Yellow Urine Clarity Clear Urine pH 7.0 Urine Specific [place] >=1.030 Urine Protein Negative mg/dL (NEG-TRACE) Urine Glucose (UA) Negative mg/dL (NEG) Urine Ketones (Stick) 15 mg/dL (NEG) Urine Blood Negative (NEG) Urine Nitrite Negative (NEG) Urine Bilirubin Negative (NEG) Urine Urobilinogen Dipstick 0.2 mg/dL (0.2 mg/dL) Urine Leukocyte Esterase Negative (NEG) Urine RBC Occ /HPF (0-2) Urine WBC 20-40 /HPF (0-4) Urine Squamous Epithelial Cells Few /LPF Urine Transitional Epithelial Cells Occ /LPF Urine Bacteria 0 /HPF (0-FEW) Urine Hyaline Casts Few /HPF Urine Mucus Slight /LPF Stool Occult Blood Negative (NEG) Clostridium difficile Toxin B Gene Negative (Negative) Test 05/18/18 03:55 Sodium Level 140 mmol/L (136-145) Potassium Level 2.9 mmol/L (3.5-5.1) Chloride Level 105 mmol/L (98-107) Carbon Dioxide Level 21 mmol/L (21-32) Anion Gap 14 (6-14) Blood Urea Nitrogen 8 mg/dL (7-20) Creatinine 0.6 mg/dL (0.6-1.0) Estimated GFR (Cockcroft-Gault) 98.5 Glucose Level 42 mg/dL (70-99) Calcium Level 7.3 mg/dL (8.5-10.1) Laboratory Tests Test 05/18/18 03:55 Sodium Level 140 mmol/L (136-145) Potassium Level 2.9 mmol/L (3.5-5.1) Chloride Level 105 mmol/L (98-107) Carbon Dioxide Level 21 mmol/L (21-32) Anion Gap 14 (6-14) Blood Urea Nitrogen 8 mg/dL (7-20) Creatinine 0.6 mg/dL (0.6-1.0) Estimated GFR (Cockcroft-Gault) 98.5 Glucose Level 42 mg/dL (70-99) Calcium Level 7.3 mg/dL (8.5-10.1) Problem List Problems Medical Problems: (1) SBO (small bowel obstruction) Status: Acute Assessment/Plan clinically improved, however films still with obstructive appearance d/w Dr Gary--will check SBFT today EVANS GARY MD 05/19/18 0849: SURGICAL PROGRESS NOTE Assessment/Plan Agree with above; will get SBFT to further assess AMARILIS ABDI APRN May 18, 2018 11:34 EVANS GARY MD May 19, 2018 08:49
[2018-05-18] MEDS ORDERED: CONTRAST GIVEN. MC PRN (12:00)
[2018-05-18] MEDS ORDERED: IOHEXOL 300 MG/ML 100ML VIAL. PO ONE (12:00)
[2018-05-18] MEDS: POTASSIUM CL 20MEQ D5-0.45NACL 1,000 ML IV SCH ×2 (13:19→21:18)
--- NOTE | 2018-05-18 14:16 | NUR ---
Patient was brought to radiology for small bowel series at 1151. This nurse was called at 1330 to check IV infusion. At the unit, it was also noted that her NG tube needs to be repositioned. Attempted to reposition NG, however, patient refused. She said to have the physician informed because she might not need it anymore. Paged Dr. Gary at [phone], awaiting for call back. The patient stated that if NG tube will be reinserted, she'll have it done later.
[2018-05-18 15:00] VITALS: BP 118/62
[2018-05-18 19:00] VITALS: BP 159/83
--- NOTE | 2018-05-18 19:27 | NUR ---
Patient educated about the importance of NGT, paged Dr. Hylton at [phone], instruction received to maintain NGT until further assessment.
[2018-05-18] MEDS: FAMOTIDINE 20 MG TABLET. PO SCH (21:19)
[2018-05-18] MEDS: METOPROLOL SUCC 24HR ER 50 MG TAB.ER.24H. PO SCH (21:19)
[2018-05-18 23:00] VITALS: BP 141/70
--- NOTE | 2018-05-19 00:26 | RAD ---
EXAM: Supine AP view of the abdomen DATE: 05/18/2018 11:38 PM INDICATION: ng placement COMPARISON: No Prior FINDINGS/ IMPRESSION: Dobbhoff tube tip projects over the body of the stomach with proximal sidehole just beyond the GE junction. This can be advanced 2-3 cm. Contrast material seen within the colon. Dilated loops of small bowel are seen. Electronically signed by: Derek Villalobos MD (05/19/2018 12:24 AM) [id number]
[2018-05-19 03:00] VITALS: BP 139/75
[2018-05-19 05:51] LABS: CALCIUM 7.7 mg/dL (8.5-10.1); CREATININE 0.6 mg/dL (0.6-1.0); GFR 98.5; POTASSIUM 3.2 mmol/L (3.5-5.1)
[2018-05-19] MEDS: POTASSIUM CL 20MEQ D5-0.45NACL 1,000 ML IV SCH (06:11)
[2018-05-19 07:15] VITALS: BP 142/67
--- NOTE | 2018-05-19 08:40 | RAD ---
Clinical indications: Small bowel obstruction.. Started on May 18, 2018. Technique: A preliminary KUB was performed. The patient drank 400 cc of Gastrografin and a small bowel series was performed. Findings: Preliminary film demonstrates moderate dilatation of small bowel. There is mild fecal retention within the colon. Surgical anastomosis of the midpelvis area is seen.. No NG tube is identified on the preliminary film or on the chest x-ray performed during the small bowel series. The nurse tryed to reposition the NG tube but it is only seen at the proximal thoracic esophagus. Therefore, the nurse pulled the NG tube. The NG tube was placed again the next morning and the tip of the tube is seen within the fundus of the stomach on the portable AP supine view performed 0720 hours on May 19, 2018. Contrast reaches the colon by 4 hours. There is moderate dilatation of small bowel loops throughout. On the 4 hour film, there does appear to be nondilated short segment of the distal ileum consistent with a caliber change indicating a small bowel obstruction. On the May 19, 2018 film, a moderate amount of contrast is still present within the dilated small bowel. Contrast is seen within the colon and rectum. Patient has had bowel movements. IMPRESSION: High-grade partial small bowel obstruction. Small hiatal hernia is present. Chest x-ray demonstrates a right upper lobe lung infiltrate corresponding to the consolidative lung infiltrate seen on a chest CT dated September 12, 2018. It appears smaller but there is an air-fluid level or cavitation present within it now. Electronically signed by: Abelino Reddy MD (05/19/2018 8:37 AM) [facility]
[2018-05-19] MEDS: CETIRIZINE HCL 10 MG TABLET. PO SCH (09:00)
--- NOTE | 2018-05-19 09:00 | NUR ---
Notified Dr. Donaldson about pt having multiple liquid bowel movements overnight. She stated to give the PRN medications for diarrhea. Will continue to monitor.
--- NOTE | 2018-05-19 09:08 | PDOC ---
PROGRESS NOTES Subjective Subjective Patient without abdominal pain or nausea at this time. Objective Objective Vital Signs Date Time Temp Pulse Resp B/P (MAP) Pulse Ox O2 Delivery O2 Flow Rate FiO2 05/19/18 07:15 98.4 90 16 142/67 (92) 99 Room Air 98.4 Intake and Output 05/19/18 07:00 Intake Total 0 ml Output Total 11 ml Balance -11 ml Intake Oral 0 ml Output Urine Total 2 ml Stool Total 4 ml Urine/Stool Mix 5 ml # Voids 1 # Bowel Movements 3 Physical Exam Abdomen: Normal bowel sounds, Soft, No tenderness Heart: Regular rate Extremities: No edema General: Alert, Oriented X3, No acute distress Lungs: Clear to auscultation Assessment Assessment Problems Medical Problems: (1) SBO (small bowel obstruction) Status: Acute Plan Plan of Care 1. Partial SBO - partial obstruction persists on SB series yesterday. Nursing reports over 1000ml out NG tube overnight. Continue NPO. Will change IVF to PPN. Patient reports she was not able to tolerate this in the past as it caused stomach pain. Willing to try again. 2. HTN with hx SVT - controlled, continue Metoprolol. 3. hypokalemia - improving, continue replacement. 4. lung abscess - continue Levaquin IV daily. Urine culture without growth. 5. chronic diarrhea - negative for C difficile. Prn meds ordered. Comment Review of Relevant I have reviewed the following items jackie (where applicable) has been applied. Labs Laboratory Tests Test 05/18/18 03:55 05/19/18 05:00 Sodium Level 140 mmol/L (136-145) 142 mmol/L (136-145) Potassium Level 2.9 mmol/L (3.5-5.1) 3.2 mmol/L (3.5-5.1) Chloride Level 105 mmol/L (98-107) 106 mmol/L (98-107) Carbon Dioxide Level 21 mmol/L (21-32) 25 mmol/L (21-32) Anion Gap 14 (6-14) 11 (6-14) Blood Urea Nitrogen 8 mg/dL (7-20) 6 mg/dL (7-20) Creatinine 0.6 mg/dL (0.6-1.0) 0.6 mg/dL (0.6-1.0) Estimated GFR (Cockcroft-Gault) 98.5 98.5 Glucose Level 42 mg/dL (70-99) 113 mg/dL (70-99) Calcium Level 7.3 mg/dL (8.5-10.1) 7.7 mg/dL (8.5-10.1) Laboratory Tests Test 05/19/18 05:00 Sodium Level 142 mmol/L (136-145) Potassium Level 3.2 mmol/L (3.5-5.1) Chloride Level 106 mmol/L (98-107) Carbon Dioxide Level 25 mmol/L (21-32) Anion Gap 11 (6-14) Blood Urea Nitrogen 6 mg/dL (7-20) Creatinine 0.6 mg/dL (0.6-1.0) Estimated GFR (Cockcroft-Gault) 98.5 Glucose Level 113 mg/dL (70-99) Calcium Level 7.7 mg/dL (8.5-10.1) Microbiology 05/16/18 Urine Culture - Final, Complete 05/16/18 Urine Culture Result 1 (DAISY) - Final, Complete Medications Current Medications Ondansetron HCl (Zofran) 4 mg 1X ONCE IV ; Start 05/16/18 at 17:00; Stop at 17:01; Status DC Sodium Chloride 1,000 ml @ 1,000 mls/hr 1X ONCE IV Last administered on at 17:24; Start 05/16/18 at 17:00; Stop 05/16/18 at 17:59; Status DC Iohexol (Omnipaque 300 Mg/ml) 75 ml 1X ONCE IV Last administered on 05/16/18at 18:04; Start 05/16/18 at 18:00; Stop 05/16/18 at 18:01; Status DC Ondansetron HCl (Zofran) 4 mg PRN Q8HRS PRN IV NAUSEA/VOMITING; Start 05/16/18 at 19:30; Stop 05/17/18 at 19:29; Status DC Sodium Chloride 1,000 ml @ 100 mls/hr 1X ONCE IV Last administered on at 19:36; Start 05/16/18 at 19:30; Stop 05/17/18 at 05:29; Status DC Fentanyl Citrate (Fentanyl 2ml Vial) 50 mcg PRN Q4HRS PRN IV PAIN; Start at 19:30 Ceftriaxone Sodium (Rocephin) 1 gm Q24H IVP ; Start 05/17/18 at 10:00; Stop at 10:00; Status DC Diphenoxylate HCl/ Atropine (Lomotil) 1 tab PRN QID PRN PO DIARRHEA; Start at 09:45 Famotidine (Pepcid) 20 mg QHS PO Last administered on 05/18/18at 21:19; Start at 21:00 Acetaminophen/ Hydrocodone Bitart (Lortab 5/325) 1 tab PRN Q4HRS PRN PO MILD PAIN; Start 05/17/18 at 09:45 Metoprolol Succinate (Toprol Xl) 50 mg HS PO Last administered on 05/18/18at 21: 19; Start 05/17/18 at 21:00 Cetirizine HCl (ZyrTEC) 10 mg DAILY PO ; Start 05/17/18 at 10:00 Levofloxacin (Levaquin) 500 mg DAILY06 PO ; Start 05/17/18 at 10:00; Stop at 08:36; Status DC Ondansetron HCl (Zofran Odt) 4 mg PRN BID PRN PO NAUSEA/VOMITING; Start at 09:45 Potassium Chloride (Klor-Con) 10 meq DAILYWBKFT PO ; Start 05/17/18 at 10:00; Stop 05/19/18 at 07:44; Status DC Artificial Tears (Artificial Tears) 1 drop BID OU Last administered on at 09:27; Start 05/17/18 at 09:45 Sodium Chloride 1,000 ml @ 100 mls/hr Q10H IV Last administered on 05/18/18at 06:04; Start 05/17/18 at 16:45; Stop 05/18/18 at 08:29; Status DC Potassium Chloride/Water 100 ml @ 100 mls/hr Q1H IV Last administered on at 10:27; Start 05/18/18 at 06:00; Stop 05/18/18 at 08:59; Status DC Potassium Chloride/Dextrose/ Sod Cl 1,000 ml @ 100 mls/hr Q10H IV Last administered on 05/19/18at 06:11; Start 05/18/18 at 09:00 Potassium Chloride/Water 100 ml @ 100 mls/hr Q1H IV ; Start 05/18/18 at 09:00; Stop 05/18/18 at 09:00; Status DC Levofloxacin/ Dextrose 100 ml @ 100 mls/hr Q24H IV Last administered on at 11:35; Start 05/18/18 at 10:00; Stop 05/18/18 at 15:04; Status DC Iohexol (Omnipaque 300 Mg/ml) 400 ml 1X ONCE PO ; Start 05/18/18 at 12:00; Stop 05/18/18 at 12:01; Status DC Info (CONTRAST GIVEN -- Rx MONITORING) 1 each PRN DAILY PRN MC SEE COMMENTS; Start 05/18/18 at 12:00; Stop 05/20/18 at 11:59 Levofloxacin/ Dextrose 50 ml @ 50 mls/hr Q24H IV ; Start 05/19/18 at 11:00 Potassium Chloride (KCl Oral Soln) 10 meq DAILY NG ; Start 05/19/18 at 09:00 Active Scripts Active Avelox (Moxifloxacin Hcl) 400 Mg Tablet 1 Tab PO DAILY Klor-Con 10 (Potassium Chloride) 10 Meq Tablet.er 10 Meq PO DAILY 30 Days Diphenoxylate-Atropine Tablet (Diphenoxylate Hcl/Atropine) 1 Each Tablet 1 Tab PO PRN QID PRN 30 Days Prevalite Packet (Cholestyramine/Aspartame) 4 Gm Powd.pack 4 Gm PO BID 60 Days Famotidine 20 Mg Tablet 20 Mg PO QHS 60 Days Aspirin Ec (Aspirin) 81 Mg Tablet.dr 81 Mg PO DAILYWBKFT 30 Days Toprol Xl (Metoprolol Succinate) 50 Mg Tab.er.24h 50 Mg PO HS 30 Days Hydrocodone-Apap 5-325 (Hydrocodone Bit/Acetaminophen) 1 Tab Tablet 1 Tab PO PRN Q4HRS PRN Reported Imodium A-D (Loperamide HCl) 2 Mg Capsule 2 Mg PO PRN PRN Xyzal (Levocetirizine Dihydrochloride) 5 Mg Tablet 5 Mg PO DAILY Oxybutynin Chloride 5 Mg Tablet 5 Mg PO TID Zofran (Ondansetron Hcl) 4 Mg Tablet 4 Mg PO BID PRN Multivitamins (Multivitamin) 1 Each Tablet 1 Each PO DAILY Vitamin D3 (Cholecalciferol (Vitamin D3)) 1,000 Unit Tablet 1,000 Unit PO DAILY Systane Ultra 0.4-0.3% Eye Drp (Propylene Glycol/Peg 400) 10 Ml Drops 10 Ml OP BID Vitals/I & O Vital Sign - Last 24 Hours 05/18/18 05/18/18 05/18/18 05/18/18 11:00 15:00 19:00 20:06 Temp 97.9 97.7 97.7 97.9 97.7 97.7 Pulse 102 82 106 Resp 18 16 18 B/P (MAP) 138/78 (98) 118/62 (80) 159/83 (108) Pulse Ox 99 100 100 O2 Delivery Room Air Room Air Room Air Room Air 05/18/18 05/18/18 05/19/18 05/19/18 21:19 23:00 03:00 07:15 Temp 98.4 98.0 98.4 98.4 98.0 98.4 Pulse 82 95 91 90 Resp 18 18 16 B/P (MAP) 118/62 141/70 (93) 139/75 (96) 142/67 (92) Pulse Ox 99 99 99 O2 Delivery Room Air Room Air Room Air Intake and Output 05/18/18 05/18/18 05/19/18 15:00 23:00 07:00 Intake Total 0 ml 0 ml 0 ml Output Total 1 ml 4 ml 6 ml Balance -1 ml -4 ml -6 ml CHELSIE MAYNARD MD May 19, 2018 09:08
[2018-05-19] MEDS: DIPHENOXYLATE/ATROPINE TABLET. PO PRN ×2 (09:22→17:06)
[2018-05-19] MEDS: POTASSIUM CHLORIDE 20 MEQ/15 ML ORAL LIQUID. NG SCH (09:23)
[2018-05-19] MEDS: POLYVINYL ALCOHOL 1.4% OPHTH SOLUTION 15ML BOTTLE. OU SCH ×2 (09:23→21:00)
[2018-05-19] MEDS: AMINO AC 3%/ELECTROLYTE/GLYCER 1,000 ML IV SCH ×2 (09:24→22:03)
--- NOTE | 2018-05-19 10:38 | NUR ---
SW following pt. Spoke with RN and no SW needs noted at this time. Will continue to follow.
--- NOTE | 2018-05-19 10:56 | PDOC ---
AMARILIS ABDI [employer] 05/19/18 1056: SURGICAL PROGRESS NOTE Subjective multiple stools had 1000cc from NG Vital Signs Vital Signs Date Time Temp Pulse Resp B/P (MAP) Pulse Ox O2 Delivery O2 Flow Rate FiO2 05/19/18 07:15 98.4 90 16 142/67 (92) 99 Room Air 98.4 I&O Intake and Output 05/19/18 07:00 Intake Total 0 ml Output Total 2010 ml Balance -2010 ml Intake Oral 0 ml Output Urine Total 2 ml Stool Total 4 ml Urine/Stool Mix 5 ml Gastric Drainage Total 2000 ml # Voids 1 # Bowel Movements 3 General: Alert, Oriented X3, Cooperative, No acute distress HEENT: Other (ng bilious) Abdomen: Soft, No tenderness Labs Laboratory Tests Test 05/18/18 03:55 05/19/18 05:00 Sodium Level 140 mmol/L (136-145) 142 mmol/L (136-145) Potassium Level 2.9 mmol/L (3.5-5.1) 3.2 mmol/L (3.5-5.1) Chloride Level 105 mmol/L (98-107) 106 mmol/L (98-107) Carbon Dioxide Level 21 mmol/L (21-32) 25 mmol/L (21-32) Anion Gap 14 (6-14) 11 (6-14) Blood Urea Nitrogen 8 mg/dL (7-20) 6 mg/dL (7-20) Creatinine 0.6 mg/dL (0.6-1.0) 0.6 mg/dL (0.6-1.0) Estimated GFR (Cockcroft-Gault) 98.5 98.5 Glucose Level 42 mg/dL (70-99) 113 mg/dL (70-99) Calcium Level 7.3 mg/dL (8.5-10.1) 7.7 mg/dL (8.5-10.1) Laboratory Tests Test 05/19/18 05:00 Sodium Level 142 mmol/L (136-145) Potassium Level 3.2 mmol/L (3.5-5.1) Chloride Level 106 mmol/L (98-107) Carbon Dioxide Level 25 mmol/L (21-32) Anion Gap 11 (6-14) Blood Urea Nitrogen 6 mg/dL (7-20) Creatinine 0.6 mg/dL (0.6-1.0) Estimated GFR (Cockcroft-Gault) 98.5 Glucose Level 113 mg/dL (70-99) Calcium Level 7.7 mg/dL (8.5-10.1) Problem List Problems Medical Problems: (1) SBO (small bowel obstruction) Status: Acute Assessment/Plan will continue NG today repeat xrays in AM if no improvement may need to consider or EVANS PERERA MD 05/19/18 1438: SURGICAL PROGRESS NOTE Assessment/Plan SB series reviewed, partial obstruction noted with contrast passing to colon in 4 hours, (?high grade); multiple stools, will observe to see if therapeutic effect; if persistent PSBO evolves may need operative intervention AMARILIS ABDI APRN May 19, 2018 10:56 EVANS PERERA MD May 19, 2018 14:38
[2018-05-19 10:57] VITALS: BP 141/70
[2018-05-19 15:00] VITALS: BP 145/71
[2018-05-19 19:58] VITALS: BP 146/75
[2018-05-19] MEDS: FAMOTIDINE 20 MG TABLET. PO SCH (21:52)
[2018-05-19] MEDS: METOPROLOL SUCC 24HR ER 50 MG TAB.ER.24H. PO SCH (21:52)
[2018-05-19 23:23] VITALS: BP 155/75
[2018-05-20] VITALS (12 sets, daily range): BP systolic 81–144; BP diastolic 47–77
[2018-05-20 05:14] LABS: CALCIUM 7.5 mg/dL (8.5-10.1); CREATININE 0.6 mg/dL (0.6-1.0); GFR 98.5; POTASSIUM 3.6 mmol/L (3.5-5.1)
--- NOTE | 2018-05-20 08:09 | RAD ---
Acute Abdominal Series: Technique: PA view of the chest and supine and upright views of the abdomen were obtained. History: Follow-up small bowel obstruction. Comparison: May 18, 2018. Findings: There has been placement of NG tube which has its tip in the mid stomach. The lungs are hyperinflated. There is contrast in portions of the colon. There is a relative paucity of small bowel gas. There is evidence prior cholecystectomy. Impression: Nonobstructive bowel gas pattern suggesting a mild ileus.. Electronically signed by: Chema Avila III, MD (05/20/2018 8:06 AM) [facility]
[2018-05-20] MEDS: POLYVINYL ALCOHOL 1.4% OPHTH SOLUTION 15ML BOTTLE. OU SCH ×2 (08:39→20:55)
[2018-05-20] MEDS: POTASSIUM CHLORIDE 20 MEQ/15 ML ORAL LIQUID. NG SCH (08:51)
[2018-05-20] MEDS: CETIRIZINE HCL 10 MG TABLET. PO SCH (08:51)
--- NOTE | 2018-05-20 09:25 | PDOC ---
AMARILIS ABDI RAGMAN 05/20/18 0925: SURGICAL PROGRESS NOTE Subjective stools did slow down no n/v no pain + flatus Vital Signs Vital Signs Date Time Temp Pulse Resp B/P (MAP) Pulse Ox O2 Delivery O2 Flow Rate FiO2 05/20/18 08:00 Room Air 05/20/18 07:00 98.0 91 16 144/67 (92) 99 98.0 I&O Intake and Output 05/20/18 06:59 Intake Total 0 ml Output Total 1702 ml Balance -1702 ml Intake Oral 0 ml Output Urine Total 700 ml Stool Total 2 ml Gastric Drainage Total 1000 ml # Voids 5 # Bowel Movements 5 General: Alert, Oriented X3, Cooperative, No acute distress HEENT: Other (NG bilious ) Abdomen: Soft, No tenderness Labs Laboratory Tests Test 05/19/18 05:00 05/20/18 04:00 Sodium Level 142 mmol/L (136-145) 139 mmol/L (136-145) Potassium Level 3.2 mmol/L (3.5-5.1) 3.6 mmol/L (3.5-5.1) Chloride Level 106 mmol/L (98-107) 106 mmol/L (98-107) Carbon Dioxide Level 25 mmol/L (21-32) 27 mmol/L (21-32) Anion Gap 11 (6-14) 6 (6-14) Blood Urea Nitrogen 6 mg/dL (7-20) 5 mg/dL (7-20) Creatinine 0.6 mg/dL (0.6-1.0) 0.6 mg/dL (0.6-1.0) Estimated GFR (Cockcroft-Gault) 98.5 98.5 Glucose Level 113 mg/dL (70-99) 97 mg/dL (70-99) Calcium Level 7.7 mg/dL (8.5-10.1) 7.5 mg/dL (8.5-10.1) Laboratory Tests Test 05/20/18 04:00 Sodium Level 139 mmol/L (136-145) Potassium Level 3.6 mmol/L (3.5-5.1) Chloride Level 106 mmol/L (98-107) Carbon Dioxide Level 27 mmol/L (21-32) Anion Gap 6 (6-14) Blood Urea Nitrogen 5 mg/dL (7-20) Creatinine 0.6 mg/dL (0.6-1.0) Estimated GFR (Cockcroft-Gault) 98.5 Glucose Level 97 mg/dL (70-99) Calcium Level 7.5 mg/dL (8.5-10.1) Problem List Problems Medical Problems: (1) SBO (small bowel obstruction) Status: Acute Assessment/Plan xrays improved, non-obstructing, ileus clamp NG EVANS PERERA MD 05/21/18 0653: SURGICAL PROGRESS NOTE Problem List Agree with above AMARILIS ABDI APRN May 20, 2018 09:25 EVANS PERERA MD May 21, 2018 06:53
--- NOTE | 2018-05-20 11:50 | PDOC ---
SUBJECTIVE Subjective Pt states that she is feeling better. Denies N/V. NG clamped. Passing gas. Some heartburn OBJECTIVE Vital Signs Vital Signs Date Time Temp Pulse Resp B/P (MAP) Pulse Ox O2 Delivery O2 Flow Rate FiO2 05/20/18 11:00 97.9 84 16 132/66 (88) 99 Room Air 97.9 05/20/18 08:00 Room Air 05/20/18 07:00 98.0 91 16 144/67 (92) 99 Room Air 98.0 05/20/18 03:16 98.2 87 20 139/68 (91) 98 Room Air 98.2 05/19/18 23:23 90 20 155/75 (101) 98 Room Air 05/19/18 21:52 116 146/75 05/19/18 20:18 Room Air 05/19/18 19:58 99.2 116 18 146/75 (98) 97 Room Air 99.2 05/19/18 15:00 98.2 92 18 145/71 (95) 98 Room Air 98.2 I & O Intake and Output 05/20/18 06:59 Intake Total 0 ml Output Total 1702 ml Balance -1702 ml Intake Oral 0 ml Output Urine Total 700 ml Stool Total 2 ml Gastric Drainage Total 1000 ml # Voids 5 # Bowel Movements 5 PHYSICAL EXAM Physical Exam GEN: NAD, AOx3, NG in place, cachetic HEENT: MMM, EOMI, no scleral icterus/injection Cardiac: RRR, no M/R/G Lungs: CTAB Abd: soft, non distended, NTTP Ext: no erythema/edema LE bilaterally Neuro: CN2-12 GI ASSESSMENT/PLAN Assessment/Plan Pt is a 72yo CF admitted with SBO 1. Partial SBO/ilias - Surgery following. NG clamped today. Receiving PPN and tolerating well. 2. HTN with hx SVT - controlled, continue Metoprolol. 3. hypokalemia - resolved, receiving KCl 10meq daily 4. lung abscess - continue Levaquin IV daily. Urine culture without growth. 5. chronic diarrhea - negative for C difficile. Prn meds ordered. COMMENT Lab Laboratory Tests Test 05/20/18 04:00 Sodium Level 139 mmol/L (136-145) Potassium Level 3.6 mmol/L (3.5-5.1) Chloride Level 106 mmol/L (98-107) Carbon Dioxide Level 27 mmol/L (21-32) Anion Gap 6 (6-14) Blood Urea Nitrogen 5 mg/dL (7-20) Creatinine 0.6 mg/dL (0.6-1.0) Estimated GFR (Cockcroft-Gault) 98.5 Glucose Level 97 mg/dL (70-99) Calcium Level 7.5 mg/dL (8.5-10.1) Nutrition Consultation Dietary Evaluation: Recommendations by RD: PPN/TPN Comments: continue PPN at this time Expected Outcomes/Goals: diet advancement/ tolerance Interpretation of weight loss: >7.5% in 3 months Malnutrition Findings: Body Fat Depletion (Non Severe: Mild Depletion Weight Status: Underweight YOLI GUERRERO MD May 20, 2018 11:50
[2018-05-20] MEDS: AMINO AC 3%/ELECTROLYTE/GLYCER 1,000 ML IV SCH (13:02)
--- NOTE | 2018-05-20 19:04 | NUR ---
Rapid response called for low BP. initial BP 58/34, repeat 64/34. 12 lead EKG done showing SVT with a rate of 210. Pt alert, no complaints of discomfort attempted vagal attempts x 2 with no results still remains with a rate of 212. Pt transferred to ICU room 108./ Dr Sepulveda called back at 191 order received. Addendum: 05/20/18 at 1907 by HUNG FINK RN Amended: Links added.
[2018-05-20] MEDS ORDERED: ADENOSINE 6 MG/2 ML VIAL. IV ONE (19:07)
--- NOTE | 2018-05-20 19:10 | NUR ---
Dr. Sepulveda notified of consult for SVT and patient room transfer to [facility].
--- NOTE | 2018-05-20 19:28 | NUR ---
Dr. Glass notified of patient SVT and transfer to ICU.
[2018-05-20] MEDS: DIPHENOXYLATE/ATROPINE TABLET. PO PRN (19:38)
--- NOTE | 2018-05-20 20:24 | NUR ---
Pt transferred to ICU room 108 from 6S. Pt. placed on monitor, HR 212, BP 81/49 pt. A/Ox4. Dr. Sepulveda phoned unit upon pt. arrival updated on condition. 6mg atropine administered via rapid IV push x1 with conversion of rhythm to sinus tachycardia and BP improving to 101/59. Dr. Sepulveda phoned unit at ~1915 post atropine administration, updated on pt. status. Pt. to remain in ICU.
[2018-05-20] MEDS: METOPROLOL SUCC 24HR ER 50 MG TAB.ER.24H. PO SCH (20:54)
[2018-05-20] MEDS: FAMOTIDINE 20 MG TABLET. PO SCH (20:55)
--- NOTE | 2018-05-20 21:11 | NUR ---
Dr. Glass notified on positive sepsis screen. No new orders at this time.
[2018-05-21] VITALS (14 sets, daily range): BP systolic 103–153; BP diastolic 48–74
[2018-05-21] MEDS: AMINO AC 3%/ELECTROLYTE/GLYCER 1,000 ML IV SCH ×3 (01:32→23:45)
[2018-05-21] MEDS: POTASSIUM CHLORIDE 20 MEQ/15 ML ORAL LIQUID. NG SCH (08:49)
[2018-05-21] MEDS: POLYVINYL ALCOHOL 1.4% OPHTH SOLUTION 15ML BOTTLE. OU SCH ×2 (08:49→21:22)
[2018-05-21] MEDS: CETIRIZINE HCL 10 MG TABLET. PO SCH (08:49)
--- NOTE | 2018-05-21 08:54 | PDOC2 ---
CONSULT Date of Consult Date of Consult DATE: 05/21/18 TIME: 08:49 Reason for Consult Reason for Consult: PSVT Referring Physician Referring Physician: Dr. Glass Identification/Chief Complaint Chief Complaint Abdominal pain Source Source: Chart review, Patient History of Present Illness Reason for Visit: The patient is a pleasant 72-year-old female who was admitted for abdominal pain several days ago. Patient was found to have small bowel obstruction and was placed nothing by mouth. He has been followed by the surgical service. She does have a history of PSVT and is treated with beta blockers for this. However medicines have been held as noted above the patient had an episode of a rapid rate last evening. She was transferred reported to the ICU and found to be in SVT. This converted with 6 mg of IV adenosine to sinus rhythm and she remains in a sinus rhythm this morning. Overall she remains relatively comfortable and continues in a sinus rhythm. Past Medical History Cardiovascular: HTN, Hyperlipidemia, Other (PSVT) Pulmonary: No pertinent hx CENTRAL NERVOUS SYSTEM: Other GI: GERD, Irritable bowel disease Heme/Onc: Anemia NOS, Cancer Hepatobiliary: No pertinent hx Psych: No pertinent hx Musculoskeletal: Osteoarthritis Rheumatologic: No pertinent hx Infectious disease: No pertinent hx, Other Renal/: No pertinent hx Endocrine: Osteopenia Past Surgical History Past Surgical History: Cholecystectomy, Tonsillectomy, Colon Resection, Other Family History Family History: Coronary Artery Disease, Heart Disease Social History Quit ALCOHOL: none Drugs: None Lives: with Family Current Problem List Problem List Problems Medical Problems: (1) SBO (small bowel obstruction) Status: Acute Current Medications Current Medications Current Medications Ondansetron HCl (Zofran) 4 mg 1X ONCE IV ; Start 05/16/18 at 17:00; Stop at 17:01; Status DC Sodium Chloride 1,000 ml @ 1,000 mls/hr 1X ONCE IV Last administered on at 17:24; Start 05/16/18 at 17:00; Stop 05/16/18 at 17:59; Status DC Iohexol (Omnipaque 300 Mg/ml) 75 ml 1X ONCE IV Last administered on 05/16/18at 18:04; Start 05/16/18 at 18:00; Stop 05/16/18 at 18:01; Status DC Ondansetron HCl (Zofran) 4 mg PRN Q8HRS PRN IV NAUSEA/VOMITING; Start 05/16/18 at 19:30; Stop 05/17/18 at 19:29; Status DC Sodium Chloride 1,000 ml @ 100 mls/hr 1X ONCE IV Last administered on 19:36; Start 05/16/18 at 19:30; Stop 05/17/18 at 05:29; Status DC Fentanyl Citrate (Fentanyl 2ml Vial) 50 mcg PRN Q4HRS PRN IV PAIN; Start at 19:30 Ceftriaxone Sodium (Rocephin) 1 gm Q24H IVP ; Start 05/17/18 at 10:00; Stop at 10:00; Status DC Diphenoxylate HCl/ Atropine (Lomotil) 1 tab PRN QID PRN PO DIARRHEA Last administered on 05/20/18 19:38; Start 05/17/18 at 09:45 Famotidine (Pepcid) 20 mg QHS PO Last administered on 05/20/18 20:55; Start at 21:00 Acetaminophen/ Hydrocodone Bitart (Lortab 5/325) 1 tab PRN Q4HRS PRN PO MILD PAIN; Start 05/17/18 at 09:45 Metoprolol Succinate (Toprol Xl) 50 mg HS PO Last administered on 05/20/18 20: 54; Start 05/17/18 at 21:00 Cetirizine HCl (ZyrTEC) 10 mg DAILY PO ; Start 05/17/18 at 10:00 Levofloxacin (Levaquin) 500 mg DAILY06 PO ; Start 05/17/18 at 10:00; Stop at 08:36; Status DC Ondansetron HCl (Zofran Odt) 4 mg PRN BID PRN PO NAUSEA/VOMITING; Start at 09:45 Potassium Chloride (Klor-Con) 10 meq DAILYWBKFT PO ; Start 05/17/18 at 10:00; Stop 05/19/18 at 07:44; Status DC Artificial Tears (Artificial Tears) 1 drop BID OU Last administered on 20:55; Start 05/17/18 at 09:45 Sodium Chloride 1,000 ml @ 100 mls/hr Q10H IV Last administered on 2/28/19at 06:04; Start 05/17/18 at 16:45; Stop 05/18/18 at 08:29; Status DC Potassium Chloride/Water 100 ml @ 100 mls/hr Q1H IV Last administered on at 10:27; Start 05/18/18 at 06:00; Stop 05/18/18 at 08:59; Status DC Potassium Chloride/Dextrose/ Sod Cl 1,000 ml @ 100 mls/hr Q10H IV Last administered on 05/19/18at 06:11; Start 05/18/18 at 09:00; Stop 05/19/18 at 09:04; Status DC Potassium Chloride/Water 100 ml @ 100 mls/hr Q1H IV ; Start 05/18/18 at 09:00; Stop 05/18/18 at 09:00; Status DC Levofloxacin/ Dextrose 100 ml @ 100 mls/hr Q24H IV Last administered on at 11:35; Start 05/18/18 at 10:00; Stop 05/18/18 at 15:04; Status DC Iohexol (Omnipaque 300 Mg/ml) 400 ml 1X ONCE PO ; Start 05/18/18 at 12:00; Stop 05/18/18 at 12:01; Status DC Info (CONTRAST GIVEN -- Rx MONITORING) 1 each PRN DAILY PRN MC SEE COMMENTS; Start 05/18/18 at 12:00; Stop 05/20/18 at 11:59; Status DC Levofloxacin/ Dextrose 50 ml @ 50 mls/hr Q24H IV Last administered on 05/20/18at 11:08; Start 05/19/18 at 11:00 Potassium Chloride (KCl Oral Soln) 10 meq DAILY NG Last administered on at 08:51; Start 05/19/18 at 09:00 Amino Acids/ Glycerin/ Electrolytes 1,000 ml @ 80 mls/hr [id number] IV Last administered on 05/21/18at 01:32; Start 05/19/18 at 09:15 Adenosine (Adenocard) 6 mg STK-MED ONCE IV ; Start 05/20/18 at 19:07; Stop at 19:08; Status DC Active Scripts Active Avelox (Moxifloxacin Hcl) 400 Mg Tablet 1 Tab PO DAILY Klor-Con 10 (Potassium Chloride) 10 Meq Tablet.er 10 Meq PO DAILY 30 Days Diphenoxylate-Atropine Tablet (Diphenoxylate Hcl/Atropine) 1 Each Tablet 1 Tab PO PRN QID PRN 30 Days Prevalite Packet (Cholestyramine/Aspartame) 4 Gm Powd.pack 4 Gm PO BID 60 Days Famotidine 20 Mg Tablet 20 Mg PO QHS 60 Days Aspirin Ec (Aspirin) 81 Mg Tablet.dr 81 Mg PO DAILYWBKFT 30 Days Toprol Xl (Metoprolol Succinate) 50 Mg Tab.er.24h 50 Mg PO HS 30 Days Hydrocodone-Apap 5-325 (Hydrocodone Bit/Acetaminophen) 1 Tab Tablet 1 Tab PO PRN Q4HRS PRN Reported Imodium A-D (Loperamide HCl) 2 Mg Capsule 2 Mg PO PRN PRN Xyzal (Levocetirizine Dihydrochloride) 5 Mg Tablet 5 Mg PO DAILY Oxybutynin Chloride 5 Mg Tablet 5 Mg PO TID Zofran (Ondansetron Hcl) 4 Mg Tablet 4 Mg PO BID PRN Multivitamins (Multivitamin) 1 Each Tablet 1 Each PO DAILY Vitamin D3 (Cholecalciferol (Vitamin D3)) 1,000 Unit Tablet 1,000 Unit PO DAILY Systane Ultra 0.4-0.3% Eye Drp (Propylene Glycol/Peg 400) 10 Ml Drops 10 Ml OP BID Allergies Allergies: Coded Allergies: latex (Verified Allergy, Intermediate, EYE SWELLING; RASH, 03/08/18) codeine (Verified Adverse Reaction, Intermediate, Makes her feel uncomfortable, 03/08/18) ROS General: YES: Fatigue Gastrointestinal: Yes Abdominal Pain Physical Exam General: No acute distress HEENT: Atraumatic Lungs: Clear to auscultation Heart: Regular rate Abdomen: Other (slight generalized tenderness) Vitals VITALS Vital Signs Date Time Temp Pulse Resp B/P (MAP) Pulse Ox O2 Delivery O2 Flow Rate FiO2 05/21/18 08:00 Room Air 05/21/18 08:00 97.6 74 12 153/74 (100) 97.6 05/21/18 07:00 100 Labs Labs Laboratory Tests Test 05/20/18 04:00 Sodium Level 139 mmol/L (136-145) Potassium Level 3.6 mmol/L (3.5-5.1) Chloride Level 106 mmol/L (98-107) Carbon Dioxide Level 27 mmol/L (21-32) Anion Gap 6 (6-14) Blood Urea Nitrogen 5 mg/dL (7-20) Creatinine 0.6 mg/dL (0.6-1.0) Estimated GFR (Cockcroft-Gault) 98.5 Glucose Level 97 mg/dL (70-99) Calcium Level 7.5 mg/dL (8.5-10.1) Assessment/Plan Assessment/Plan 1. Small bowel obstruction. Abdominal discomfort improved. Patient is followed by the surgical service. Continue as above. 2. PSVT. Patient has a history of PSVT and is usually treated with metoprolol. However this has been on hold secondary to her as being oh. Episode of PSVT was converted with 6 mg of iodine adenosine last night. We continue on monitoring. Adenosine on a when necessary basis if needed. Resume metoprolol when able to take oral medications. 3. Borderline hypertension. We'll continue to monitor. Thank you for allowing us to participate in the care of your patient. STEPHANIE CHINCHILLA MD May 21, 2018 08:54
--- NOTE | 2018-05-21 09:08 | PDOC ---
SUBJECTIVE Subjective Pt doing well. Had episode of SVT with hypotension last night that resolved with adenosine. She denies any abdominal pain, nausea or vomiting. OBJECTIVE Vital Signs Vital Signs Date Time Temp Pulse Resp B/P (MAP) Pulse Ox O2 Delivery O2 Flow Rate FiO2 05/21/18 08:00 Room Air 05/21/18 08:00 97.6 74 12 153/74 (100) Room Air 97.6 05/21/18 07:00 69 15 113/52 (72) 100 Room Air 05/21/18 06:00 70 12 116/52 (73) 100 Room Air 05/21/18 05:00 68 12 105/52 (69) 99 Room Air 05/21/18 04:00 Room Air 05/21/18 04:00 97.7 72 12 141/60 (87) 100 Room Air 97.7 05/21/18 03:00 72 13 125/59 (81) 97 Room Air 05/21/18 02:00 72 12 138/58 (84) 100 Room Air 05/21/18 01:00 74 13 103/48 (66) 97 Room Air 05/21/18 00:00 Room Air 05/21/18 00:00 74 15 116/59 (78) 100 Room Air 05/20/18 23:00 78 13 103/47 (65) 100 Room Air 05/20/18 22:00 85 13 114/55 (74) 100 Room Air 05/20/18 21:00 110 19 128/66 (86) 100 Room Air 05/20/18 20:54 104 112/58 05/20/18 20:00 Room Air 05/20/18 20:00 97.9 114 25 93/60 (71) 100 Room Air 97.9 05/20/18 19:45 118 21 99/51 (67) 100 Room Air 05/20/18 19:30 120 16 101/59 (73) 100 Room Air 05/20/18 19:13 118 18 87/53 (64) 100 Room Air 05/20/18 19:06 212 18 81/49 (60) 100 Room Air 05/20/18 15:00 98.2 100 16 123/77 (92) 99 Room Air 98.2 05/20/18 11:00 97.9 84 16 132/66 (88) 99 Room Air 97.9 I & O Intake and Output 05/21/18 07:00 Intake Total 960 ml Balance 960 ml Intake Oral 0 ml IV Total 960 ml # Voids 9 # Bowel Movements 2 PHYSICAL EXAM Physical Exam GEN: NAD, AOx3, NG in place, cachetic HEENT: MMM, EOMI, no scleral icterus/injection Cardiac: RRR, no M/R/G Lungs: CTAB Abd: soft, non distended, NTTP Ext: no erythema/edema LE bilaterally Neuro: CN2-12 GI ASSESSMENT/PLAN Assessment/Plan Pt is a 72yo CF admitted with SBO 1. Partial SBO/ilias - Surgery following. NG clamped yesterday. They are planning on checking for residuals and hopeful to get pt started on CLD. Receiving PPN and tolerating well. 2. HTN with hx SVT - controlled, pt normally on Metoprolol. Had episode of SVT this hospitalization which responded well to adenosine. 3. hypokalemia - resolved, receiving KCl 10meq daily 4. lung abscess - continue Levaquin IV daily. Urine culture without growth. 5. chronic diarrhea - negative for C difficile. Prn meds ordered. Nutrition Consultation Dietary Evaluation: Recommendations by RD: PPN/TPN Comments: continue PPN at this time Expected Outcomes/Goals: diet advancement/ tolerance Interpretation of weight loss: >7.5% in 3 months Malnutrition Findings: Body Fat Depletion (Non Severe: Mild Depletion Weight Status: Underweight YOLI GUERRERO MD May 21, 2018 09:08
[2018-05-21] MEDS ORDERED: POTASSIUM CHLORIDE 20 MEQ/15 ML ORAL LIQUID. PO SCH (09:30)
--- NOTE | 2018-05-21 09:30 | PDOC ---
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 feels well this AM no abdominal pain, no n/v, no distention, NG clamped since yesterday episode of SVT and hypotension--she does have hx SVT--meds had been held due to NG/NPO now in sinus rhythm Vital Signs Vital Signs Date Time Temp Pulse Resp B/P (MAP) Pulse Ox O2 Delivery O2 Flow Rate FiO2 05/21/18 09:00 74 10 133/64 (87) Room Air 05/21/18 08:00 97.6 97.6 05/21/18 07:00 100 I&O Intake and Output 05/21/18 07:00 Intake Total 960 ml Balance 960 ml Intake Oral 0 ml IV Total 960 ml # Voids 9 # Bowel Movements 2 General: Alert, Oriented X3, Cooperative, No acute distress Abdomen: Soft, No tenderness, Other (ND) Labs Laboratory Tests Test 05/20/18 04:00 Sodium Level 139 mmol/L (136-145) Potassium Level 3.6 mmol/L (3.5-5.1) Chloride Level 106 mmol/L (98-107) Carbon Dioxide Level 27 mmol/L (21-32) Anion Gap 6 (6-14) Blood Urea Nitrogen 5 mg/dL (7-20) Creatinine 0.6 mg/dL (0.6-1.0) Estimated GFR (Cockcroft-Gault) 98.5 Glucose Level 97 mg/dL (70-99) Calcium Level 7.5 mg/dL (8.5-10.1) Problem List Problems Medical Problems: (1) SBO (small bowel obstruction) Status: Acute Assessment/Plan if residual < 200cc DC NG and start clears, if greater return to [facility] EVANS PERERA MD 05/21/18 1205: SURGICAL PROGRESS NOTE Assessment/Plan Agree with above AMARILIS ABDI APRN May 21, 2018 09:30 EVANS PERERA MD May 21, 2018 12:05
[2018-05-21] MEDS: POTASSIUM CHLORIDE 10 MEQ TABLET.ER. PO SCH (09:40)
[2018-05-21] MEDS ORDERED: POTASSIUM CHLORIDE 10 MEQ TABLET.ER. PO SCH (10:00)
--- NOTE | 2018-05-21 11:45 | NUR ---
Orders received to transfer pt. Pt belongings taken to room 250 including glasses, phone, and phone nurse reviewer. Report called to Sarah and pt taken by w/c to room 250. This nurse located patients nurse at nurses station and told her patient was in the room.
--- NOTE | 2018-05-21 12:58 | NUR ---
Nursing: NG tube had no residual per [facility]. Reviewed orders per surgery. NG tube removed.
[2018-05-21] MEDS: METOPROLOL SUCC 24HR ER 50 MG TAB.ER.24H. PO SCH (21:21)
[2018-05-21] MEDS: FAMOTIDINE 20 MG TABLET. PO SCH (21:21)
[2018-05-22 03:34] VITALS: BP 114/53
[2018-05-22 07:10] VITALS: BP 126/62
[2018-05-22] MEDS: POLYVINYL ALCOHOL 1.4% OPHTH SOLUTION 15ML BOTTLE. OU SCH (09:00)
--- NOTE | 2018-05-22 09:14 | PDOC ---
PROGRESS NOTES Subjective Subjective feeling much better, rossi liquids, no pain, hoping to eat and possibly dc soon Objective Objective Vital Signs Date Time Temp Pulse Resp B/P (MAP) Pulse Ox O2 Delivery O2 Flow Rate FiO2 05/22/18 07:30 Room Air 05/22/18 07:10 97.5 69 16 126/62 (83) 100 97.5 Intake and Output 05/22/18 06:59 Intake Total 1560 ml Output Total 350 ml Balance 1210 ml Intake Oral 600 ml IV Total 960 ml Output Urine Total 350 ml Gastric Drainage Total 0 ml # Voids 1 Physical Exam Abdomen: Soft, No tenderness Heart: Regular rate Extremities: No clubbing, No cyanosis General: Alert, Oriented X3 HEENT: Atraumatic Lungs: Clear to auscultation Neck: Supple Neuro: Normal speech Psych/Mental Status: Mental status NL Assessment Assessment Problems Medical Problems: (1) SBO (small bowel obstruction) Status: Acute Plan Plan of Care KUB today looks good, advance diet, if tolerates consider DC soon Comment Review of Relevant I have reviewed the following items jackie (where applicable) has been applied. Labs Microbiology 05/16/18 Urine Culture - Final, Complete 05/16/18 Urine Culture Result 1 (DAISY) - Final, Complete Medications Current Medications Ondansetron HCl (Zofran) 4 mg 1X ONCE IV ; Start 05/16/18 at 17:00; Stop at 17:01; Status DC Sodium Chloride 1,000 ml @ 1,000 mls/hr 1X ONCE IV Last administered on at 17:24; Start 05/16/18 at 17:00; Stop 05/16/18 at 17:59; Status DC Iohexol (Omnipaque 300 Mg/ml) 75 ml 1X ONCE IV Last administered on 05/16/18at 18:04; Start 05/16/18 at 18:00; Stop 05/16/18 at 18:01; Status DC Ondansetron HCl (Zofran) 4 mg PRN Q8HRS PRN IV NAUSEA/VOMITING; Start 05/16/18 at 19:30; Stop 05/17/18 at 19:29; Status DC Sodium Chloride 1,000 ml @ 100 mls/hr 1X ONCE IV Last administered on at 19:36; Start 05/16/18 at 19:30; Stop 05/17/18 at 05:29; Status DC Fentanyl Citrate (Fentanyl 2ml Vial) 50 mcg PRN Q4HRS PRN IV PAIN; Start at 19:30 Ceftriaxone Sodium (Rocephin) 1 gm Q24H IVP ; Start 05/17/18 at 10:00; Stop at 10:00; Status DC Diphenoxylate HCl/ Atropine (Lomotil) 1 tab PRN QID PRN PO DIARRHEA Last administered on 05/20/18 19:38; Start 05/17/18 at 09:45 Famotidine (Pepcid) 20 mg QHS PO Last administered on 05/21/18 21:21; Start at 21:00 Acetaminophen/ Hydrocodone Bitart (Lortab 5/325) 1 tab PRN Q4HRS PRN PO MILD PAIN; Start 05/17/18 at 09:45 Metoprolol Succinate (Toprol Xl) 50 mg HS PO Last administered on 05/21/18 21: 21; Start 05/17/18 at 21:00 Cetirizine HCl (ZyrTEC) 10 mg DAILY PO Last administered on 05/21/18 08:49; Start 05/17/18 at 10:00 Levofloxacin (Levaquin) 500 mg DAILY06 PO ; Start 05/17/18 at 10:00; Stop at 08:36; Status DC Ondansetron HCl (Zofran Odt) 4 mg PRN BID PRN PO NAUSEA/VOMITING; Start at 09:45 Potassium Chloride (Klor-Con) 10 meq DAILYWBKFT PO ; Start 05/17/18 at 10:00; Stop 05/19/18 at 07:44; Status DC Artificial Tears (Artificial Tears) 1 drop BID OU Last administered on 21:22; Start 05/17/18 at 09:45 Sodium Chloride 1,000 ml @ 100 mls/hr Q10H IV Last administered on 05/18/18 06:04; Start 05/17/18 at 16:45; Stop 05/18/18 at 08:29; Status DC Potassium Chloride/Water 100 ml @ 100 mls/hr Q1H IV Last administered on 2/28/ 19at 10:27; Start 05/18/18 at 06:00; Stop 05/18/18 at 08:59; Status DC Potassium Chloride/Dextrose/ Sod Cl 1,000 ml @ 100 mls/hr Q10H IV Last administered on 05/19/18at 06:11; Start 05/18/18 at 09:00; Stop 05/19/18 at 09:04; Status DC Potassium Chloride/Water 100 ml @ 100 mls/hr Q1H IV ; Start 05/18/18 at 09:00; Stop 05/18/18 at 09:00; Status DC Levofloxacin/ Dextrose 100 ml @ 100 mls/hr Q24H IV Last administered on at 11:35; Start 05/18/18 at 10:00; Stop 05/18/18 at 15:04; Status DC Iohexol (Omnipaque 300 Mg/ml) 400 ml 1X ONCE PO ; Start 05/18/18 at 12:00; Stop 05/18/18 at 12:01; Status DC Info (CONTRAST GIVEN -- Rx MONITORING) 1 each PRN DAILY PRN MC SEE COMMENTS; Start 05/18/18 at 12:00; Stop 05/20/18 at 11:59; Status DC Levofloxacin/ Dextrose 50 ml @ 50 mls/hr Q24H IV Last administered on 05/21/18at 10:46; Start 05/19/18 at 11:00 Potassium Chloride (KCl Oral Soln) 10 meq DAILY NG Last administered on at 08:51; Start 05/19/18 at 09:00; Stop 05/21/18 at 09:22; Status DC Amino Acids/ Glycerin/ Electrolytes 1,000 ml @ 80 mls/hr [id number] IV Last administered on 05/21/18at 11:15; Start 05/19/18 at 09:15 Adenosine (Adenocard) 6 mg STK-MED ONCE IV ; Start 05/20/18 at 19:07; Stop at 19:08; Status DC Potassium Chloride (KCl Oral Soln) 10 meq DAILY PO ; Start 05/21/18 at 09:30; Stop 05/21/18 at 09:35; Status DC Potassium Chloride (Klor-Con) 10 meq DAILYWBKFT PO Last administered on at 09:40; Start 05/21/18 at 10:00 Potassium Chloride (Klor-Con) 10 meq DAILYWBKFT PO ; Start 05/21/18 at 10:00; Stop 05/21/18 at 10:00; Status DC Active Scripts Active Avelox (Moxifloxacin Hcl) 400 Mg Tablet 1 Tab PO DAILY Klor-Con 10 (Potassium Chloride) 10 Meq Tablet.er 10 Meq PO DAILY 30 Days Diphenoxylate-Atropine Tablet (Diphenoxylate Hcl/Atropine) 1 Each Tablet 1 Tab PO PRN QID PRN 30 Days Prevalite Packet (Cholestyramine/Aspartame) 4 Gm Powd.pack 4 Gm PO BID 60 Days Famotidine 20 Mg Tablet 20 Mg PO QHS 60 Days Aspirin Ec (Aspirin) 81 Mg Tablet.dr 81 Mg PO DAILYWBKFT 30 Days Toprol Xl (Metoprolol Succinate) 50 Mg Tab.er.24h 50 Mg PO HS 30 Days Hydrocodone-Apap 5-325 (Hydrocodone Bit/Acetaminophen) 1 Tab Tablet 1 Tab PO PRN Q4HRS PRN Reported Imodium A-D (Loperamide HCl) 2 Mg Capsule 2 Mg PO PRN PRN Xyzal (Levocetirizine Dihydrochloride) 5 Mg Tablet 5 Mg PO DAILY Oxybutynin Chloride 5 Mg Tablet 5 Mg PO TID Zofran (Ondansetron Hcl) 4 Mg Tablet 4 Mg PO BID PRN Multivitamins (Multivitamin) 1 Each Tablet 1 Each PO DAILY Vitamin D3 (Cholecalciferol (Vitamin D3)) 1,000 Unit Tablet 1,000 Unit PO DAILY Systane Ultra 0.4-0.3% Eye Drp (Propylene Glycol/Peg 400) 10 Ml Drops 10 Ml OP BID Vitals/I & O Vital Sign - Last 24 Hours 05/21/18 05/21/18 05/21/18 05/21/18 11:00 11:00 15:00 19:19 Temp 97.7 97.5 97.6 97.7 97.5 97.6 Pulse 82 79 74 76 Resp 12 12 12 16 B/P (MAP) 130/71 (90) 130/64 (86) 130/74 (92) 144/61 (88) Pulse Ox 100 98 100 O2 Delivery Room Air Room Air Room Air Room Air 05/21/18 05/21/18 05/21/18 05/22/18 20:00 21:21 23:08 03:34 Temp 97.7 97.2 97.7 97.2 Pulse 76 75 78 Resp 16 16 B/P (MAP) 144/61 126/59 (81) 114/53 (73) Pulse Ox 99 99 O2 Delivery Room Air Room Air Room Air 05/22/18 05/22/18 07:10 07:30 Temp 97.5 97.5 Pulse 69 Resp 16 B/P (MAP) 126/62 (83) Pulse Ox 100 O2 Delivery Room Air Room Air Intake and Output 05/21/18 05/21/18 05/22/18 14:59 22:59 06:59 Intake Total 600 ml 960 ml Output Total 350 ml Balance -350 ml 600 ml 960 ml Nutrition Consultation Dietary Evaluation: Recommendations by RD: PPN/TPN Comments: continue PPN at this time Expected Outcomes/Goals: diet advancement/ tolerance Interpretation of weight loss: >7.5% in 3 months Malnutrition Findings: Body Fat Depletion (Non Severe: Mild Depletion Weight Status: Underweight EVANS PERERA MD May 22, 2018 09:14
--- NOTE | 2018-05-22 10:36 | RAD ---
EXAM: Frontal view of the chest, AP views of the abdomen in upright and supine positions. CLINICAL INDICATION: SMALL BOWEL OBSTRUCTION COMPARISON: 05/20/2018, 05/10/2018 FINDINGS: The heart is not enlarged. Mediastinal and hilar contours are normal. Cavitary right midlung lesion is seen, better assessed on prior CT, however decreased compared to 04/14/2018. No pleural effusion or pneumothorax. Calcified granulomas are seen. Regions of lucency within the left lung likely artifactual given overlying soft tissue density. No abnormal small or large bowel dilatation to suggest bowel obstruction.. Moderate colonic stool content. Oral contrast material is seen within the colon. Bowel suture line is seen at the rectum. Cholecystectomy clips are seen. No abnormal soft tissue mass effect. No suspicious calcifications are seen. No free intraperitoneal gas. IMPRESSION: No evidence for bowel obstruction. Cavitary right midlung lesion is smaller when compared to prior CT 04/14/2018 although more prominent compared to radiograph 05/20/2018. Electronically signed by: Derek Villalobos MD (05/22/2018 10:33 AM) [facility]
[2018-05-22 11:25] VITALS: BP 131/60
[2018-05-22] MEDS: CETIRIZINE HCL 10 MG TABLET. PO SCH (11:34)
[2018-05-22] MEDS: POTASSIUM CHLORIDE 10 MEQ TABLET.ER. PO SCH (11:34)
--- NOTE | 2018-05-22 12:12 | NUR ---
SS following for discharge planning. SS reviewed pt chart. Pt is from home with spouse and is currently on room air. No discharge needs noted at this time. SS will continue to follow for pending discharge needs.
[2018-05-22] MEDS: AMINO AC 3%/ELECTROLYTE/GLYCER 1,000 ML IV SCH (12:15)
--- NOTE | 2018-05-22 14:14 | EKG ---
[facility] [address] [place] [address] Test Date: 2018-05-20 Test Time: 18:50:09 Pat Name: CHELSIE PINEDA Department: Room: 250 1 Gender: F Scrap Baler: ROBERTO : 1945 Requested By: CHELSIE MAYNARD Order Number: [id number] Reading MD: Jamaal Rasheed MD Measurements Intervals [place] Rate: 214 P: [place]: QRS: 62 QRSD: 70 T: 61 QT: 272 QTc: 513 Interpretive Statements SUPRAVENTRICULAR TACHYCARDIA ST & T ABNORMALITY, CONSIDER INFERIOR ISCHEMIA OR LEFT VENTRICULAR STRAIN ABNORMAL ECG Electronically Signed On 05-23-2018 7:45:13 [employer] WORK[employer] by Jamaal Rasheed MD
[2018-05-22 15:00] VITALS: BP 127/58
--- NOTE | 2018-05-22 16:45 | NUR ---
Pt alert and oriented throughout shift. Pt denied pain throughout shift. Pt ate 100% of omelete for breakfast and 60% of fish for lunch. Pt stated no stomach issues after eating. Pt tolerated bilat IV removal. Both catheter tips intact, pressure applied, bleeding stopped, bandages applied. Pt educated on small bowel obstruction as well as SVT. Pt and family denied questions at discharge. Pt wheeled out to family car by RN.
--- NOTE | 2018-05-22 17:12 | PDOC ---
PROGRESS NOTES Subjective Subjective Patient seen and examined She looks and feels better. Objective Objective Vital Signs Date Time Temp Pulse Resp B/P (MAP) Pulse Ox O2 Delivery O2 Flow Rate FiO2 05/22/18 15:00 97.9 79 16 127/58 (81) 99 Room Air 97.9 Intake and Output 05/22/18 07:00 Intake Total 1560 ml Output Total 350 ml Balance 1210 ml Intake Oral 600 ml IV Total 960 ml Output Urine Total 350 ml Gastric Drainage Total 0 ml # Voids 1 Physical Exam Abdomen: No tenderness Heart: Regular rate General: mild distress Lungs: Clear to auscultation Assessment Assessment Problems Medical Problems: (1) SBO (small bowel obstruction) Status: Acute 1. Small bowel obstruction. Abdominal discomfort improved. Patient is followed by the surgical service. Continue as above. 2. PSVT. Patient has a history of PSVT and is usually treated with metoprolol. However this was on hold secondary to her being NPO. Episode of PSVT was converted with 6 mg of iodine adenosine last night. We continue on monitoring. Adenosine on a when necessary basis if needed. Resume metoprolol po. 3. Borderline hypertension. We'll continue to monitor. Comment Review of Relevant I have reviewed the following items jackie (where applicable) has been applied. Labs Microbiology 05/16/18 Urine Culture - Final, Complete 05/16/18 Urine Culture Result 1 (DAISY) - Final, Complete Medications Current Medications Ondansetron HCl (Zofran) 4 mg 1X ONCE IV ; Start 05/16/18 at 17:00; Stop at 17:01; Status DC Sodium Chloride 1,000 ml @ 1,000 mls/hr 1X ONCE IV Last administered on at 17:24; Start 05/16/18 at 17:00; Stop 05/16/18 at 17:59; Status DC Iohexol (Omnipaque 300 Mg/ml) 75 ml 1X ONCE IV Last administered on 05/16/18at 18:04; Start 05/16/18 at 18:00; Stop 05/16/18 at 18:01; Status DC Ondansetron HCl (Zofran) 4 mg PRN Q8HRS PRN IV NAUSEA/VOMITING; Start 05/16/18 at 19:30; Stop 05/17/18 at 19:29; Status DC Sodium Chloride 1,000 ml @ 100 mls/hr 1X ONCE IV Last administered on at 19:36; Start 05/16/18 at 19:30; Stop 05/17/18 at 05:29; Status DC Fentanyl Citrate (Fentanyl 2ml Vial) 50 mcg PRN Q4HRS PRN IV PAIN; Start at 19:30 Ceftriaxone Sodium (Rocephin) 1 gm Q24H IVP ; Start 05/17/18 at 10:00; Stop at 10:00; Status DC Diphenoxylate HCl/ Atropine (Lomotil) 1 tab PRN QID PRN PO DIARRHEA Last administered on 05/20/18 19:38; Start 05/17/18 at 09:45 Famotidine (Pepcid) 20 mg QHS PO Last administered on 05/21/18 21:21; Start at 21:00 Acetaminophen/ Hydrocodone Bitart (Lortab 5/325) 1 tab PRN Q4HRS PRN PO MILD PAIN; Start 05/17/18 at 09:45 Metoprolol Succinate (Toprol Xl) 50 mg HS PO Last administered on 05/21/18 21: 21; Start 05/17/18 at 21:00 Cetirizine HCl (ZyrTEC) 10 mg DAILY PO Last administered on 05/22/18 11:34; Start 05/17/18 at 10:00 Levofloxacin (Levaquin) 500 mg DAILY06 PO ; Start 05/17/18 at 10:00; Stop at 08:36; Status DC Ondansetron HCl (Zofran Odt) 4 mg PRN BID PRN PO NAUSEA/VOMITING; Start at 09:45 Potassium Chloride (Klor-Con) 10 meq DAILYWBKFT PO ; Start 05/17/18 at 10:00; Stop 05/19/18 at 07:44; Status DC Artificial Tears (Artificial Tears) 1 drop BID OU Last administered on 21:22; Start 05/17/18 at 09:45 Sodium Chloride 1,000 ml @ 100 mls/hr Q10H IV Last administered on 05/18/18at 06:04; Start 05/17/18 at 16:45; Stop 05/18/18 at 08:29; Status DC Potassium Chloride/Water 100 ml @ 100 mls/hr Q1H IV Last administered on at 10:27; Start 05/18/18 at 06:00; Stop 05/18/18 at 08:59; Status DC Potassium Chloride/Dextrose/ Sod Cl 1,000 ml @ 100 mls/hr Q10H IV Last administered on 05/19/18at 06:11; Start 05/18/18 at 09:00; Stop 05/19/18 at 09:04; Status DC Potassium Chloride/Water 100 ml @ 100 mls/hr Q1H IV ; Start 05/18/18 at 09:00; Stop 05/18/18 at 09:00; Status DC Levofloxacin/ Dextrose 100 ml @ 100 mls/hr Q24H IV Last administered on at 11:35; Start 05/18/18 at 10:00; Stop 05/18/18 at 15:04; Status DC Iohexol (Omnipaque 300 Mg/ml) 400 ml 1X ONCE PO ; Start 05/18/18 at 12:00; Stop 05/18/18 at 12:01; Status DC Info (CONTRAST GIVEN -- Rx MONITORING) 1 each PRN DAILY PRN MC SEE COMMENTS; Start 05/18/18 at 12:00; Stop 05/20/18 at 11:59; Status DC Levofloxacin/ Dextrose 50 ml @ 50 mls/hr Q24H IV Last administered on 05/22/18at 11:34; Start 05/19/18 at 11:00 Potassium Chloride (KCl Oral Soln) 10 meq DAILY NG Last administered on at 08:51; Start 05/19/18 at 09:00; Stop 05/21/18 at 09:22; Status DC Amino Acids/ Glycerin/ Electrolytes 1,000 ml @ 80 mls/hr [id number] IV Last administered on 05/21/18at 11:15; Start 05/19/18 at 09:15 Adenosine (Adenocard) 6 mg STK-MED ONCE IV ; Start 05/20/18 at 19:07; Stop at 19:08; Status DC Potassium Chloride (KCl Oral Soln) 10 meq DAILY PO ; Start 05/21/18 at 09:30; Stop 05/21/18 at 09:35; Status DC Potassium Chloride (Klor-Con) 10 meq DAILYWBKFT PO Last administered on at 11:34; Start 05/21/18 at 10:00 Potassium Chloride (Klor-Con) 10 meq DAILYWBKFT PO ; Start 05/21/18 at 10:00; Stop 05/21/18 at 10:00; Status DC Lactobacillus Rhamnosus (Culturelle) 1 cap BID PO ; Start 05/22/18 at 21:00 Active Scripts Active Avelox (Moxifloxacin Hcl) 400 Mg Tablet 1 Tab PO DAILY Klor-Con 10 (Potassium Chloride) 10 Meq Tablet.er 10 Meq PO DAILY 30 Days Diphenoxylate-Atropine Tablet (Diphenoxylate Hcl/Atropine) 1 Each Tablet 1 Tab PO PRN QID PRN 30 Days Prevalite Packet (Cholestyramine/Aspartame) 4 Gm Powd.pack 4 Gm PO BID 60 Days Famotidine 20 Mg Tablet 20 Mg PO QHS 60 Days Aspirin Ec (Aspirin) 81 Mg Tablet.dr 81 Mg PO DAILYWBKFT 30 Days Toprol Xl (Metoprolol Succinate) 50 Mg Tab.er.24h 50 Mg PO HS 30 Days Hydrocodone-Apap 5-325 (Hydrocodone Bit/Acetaminophen) 1 Tab Tablet 1 Tab PO PRN Q4HRS PRN Reported Imodium A-D (Loperamide HCl) 2 Mg Capsule 2 Mg PO PRN PRN Xyzal (Levocetirizine Dihydrochloride) 5 Mg Tablet 5 Mg PO DAILY Oxybutynin Chloride 5 Mg Tablet 5 Mg PO TID Zofran (Ondansetron Hcl) 4 Mg Tablet 4 Mg PO BID PRN Multivitamins (Multivitamin) 1 Each Tablet 1 Each PO DAILY Vitamin D3 (Cholecalciferol (Vitamin D3)) 1,000 Unit Tablet 1,000 Unit PO DAILY Systane Ultra 0.4-0.3% Eye Drp (Propylene Glycol/Peg 400) 10 Ml Drops 10 Ml OP BID Vitals/I & O Vital Sign - Last 24 Hours 05/21/18 05/21/18 05/21/18 05/21/18 19:19 20:00 21:21 23:08 Temp 97.6 97.7 97.6 97.7 Pulse 76 76 75 Resp 16 16 B/P (MAP) 144/61 (88) 144/61 126/59 (81) Pulse Ox 100 99 O2 Delivery Room Air Room Air Room Air 05/22/18 05/22/18 05/22/18 05/22/18 03:34 07:10 07:30 11:25 Temp 97.2 97.5 97.5 97.2 97.5 97.5 Pulse 78 69 87 Resp 16 16 16 B/P (MAP) 114/53 (73) 126/62 (83) 131/60 (83) Pulse Ox 99 100 100 O2 Delivery Room Air Room Air Room Air Room Air 05/22/18 15:00 Temp 97.9 97.9 Pulse 79 Resp 16 B/P (MAP) 127/58 (81) Pulse Ox 99 O2 Delivery Room Air Intake and Output 05/21/18 05/21/18 05/22/18 15:00 23:00 07:00 Intake Total 600 ml 960 ml Output Total 350 ml Balance -350 ml 600 ml 960 ml Nutrition Consultation Dietary Evaluation: Recommendations by RD: Increase Calorie Intake Comments: continue w/regular diet as ordred, honor pt food preferences/intolerances If PO intake <75% meals, recommend consideration of re-starting PPN to assist in emeting nutrition needs Expected Outcomes/Goals: diet advancement/ tolerance - met, new goal established New goal 05/22: PO intake to meet >75% est needs Interpretation of weight loss: >7.5% in 3 months Malnutrition Findings: Body Fat Depletion (Non Severe: Mild Depletion Weight Status: Underweight STEPHANIE CHINCHILLA MD May 22, 2018 17:12
[2018-05-22] MEDS ORDERED: LACTOBACILLUS RHAMNOSUS GG 1 CAPSULE. PO SCH (21:00)
--- NOTE | 2018-05-22 21:12 | DS ---
DATE OF DISCHARGE: 05/22/2018 CHIEF COMPLAINT: Nausea and vomiting. HISTORY OF PRESENT ILLNESS AND HOSPITAL COURSE: This patient is a 72-year-old female who was admitted with increasing nausea, vomiting and recurrent small bowel obstruction. She was treated less than a month ago with NG tube and n.p.o. status and did improve. During that hospitalization, she was found to have a lung abscess which was asymptomatic and treated with p.o. antibiotics. She is on extended antibiotics and followup for Pulmonary Medicine is planned. The patient did have bronchoscopy with no endobronchial lesion noted at that time. She was admitted and given IV fluids and subsequently PPN. She was made n.p.o. and did resolve her partial small bowel obstruction spontaneously. She was tolerating diet, having bowel movements and nontender. Therefore, plans for discharge to home were made. She was discharged on her previous home medications including Avelox antibiotic for 1 more week until she can follow up with Pulmonary Medicine and have a repeat scanning of her pulmonary abscess. DISCHARGE DIAGNOSES: 1. Small bowel obstruction. 2. Hypokalemia, resolved. 3. Severe protein malnutrition. 4. Pulmonary abscess. 5. History of supraventricular tachycardia. 6. Recurrent nausea, vomiting and diarrhea. PLAN: Again is to discharge to home to follow up at [facility] in 1 week. Continue medications per MRAD. ALLYN PATE MD DR: FENG/curtis JOB#: [id number] / [id number]
== END 2018-05-22 14:15 | disposition home or self-care (01) | DRG 388 ==
LOC: ER 16:32 → 6 SOUTH 19:17 → 1 WEST ICU 05-20 18:45 → 2 SOUTH 05-21 12:16
PROVIDERS: ADMIT Family Medicine; ATTEND Family Medicine
PROC: 0D9670Z Drainage of Stomach with Drainage Device, Via Natural or Artificial Opening (ICD-10-PCS; principal; 2018-05-19)
DX: K56.600 Partial intestinal obstruction, unspecified as to cause (principal); J85.2 Abscess of lung without pneumonia; E43 Unspecified severe protein-calorie malnutrition; I47.1 Supraventricular tachycardia; Z68.1 Body mass index [BMI] 19.9 or less, adult; K56.7 Ileus, unspecified; E87.6 Hypokalemia; I10 Essential (primary) hypertension; E78.5 Hyperlipidemia, unspecified; M85.80 Other specified disorders of bone density and structure, unspecified site; K52.9 Noninfective gastroenteritis and colitis, unspecified; M21.619 Bunion of unspecified foot; K21.9 Gastro-esophageal reflux disease without esophagitis; M19.90 Unspecified osteoarthritis, unspecified site; I95.9 Hypotension, unspecified; Z86.12 Personal history of poliomyelitis; Z85.048 Personal history of other malignant neoplasm of rectum, rectosigmoid junction, and anus; Z87.891 Personal history of nicotine dependence; Z88.6 Allergy status to analgesic agent; Z91.040 Latex allergy status; Z82.49 Family history of ischemic heart disease and other diseases of the circulatory system; Z90.710 Acquired absence of both cervix and uterus
CPT/HCPCS: 36415; 74018; 74022; 74177; 74250; 80048; 80053; 81001; 82274; 83690; 85025; 87086; 87493; 93005; 96360; 96361; J1956; J3480; J7030; Q9967; 99285-25

== ENCOUNTER 2018-06-21 15:28 | Emergency (ER) | payer MEDICARE, BC ==
[~2018-06-21] VITALS: Ht 160 cm; Wt 44.5 kg
[2018-06-21] MEDS ORDERED: IV NORMAL SALINE 1000ML BAG 1,000 ML IV ONE (16:15)
[2018-06-21 16:22] LABS: BASO % 1 % (0-3); EOS # 0.1 x10^3/uL (0.0-0.7); EOS % 2 % (0-3); HEMATOCRIT 35.1 % (36.0-47.0); HEMOGLOBIN 11.5 g/dL (12.0-15.5); LYMPH # 0.9 x10^3/uL (1.0-4.8); LYMPH % 20 % (24-48); MEAN CORPUSCULAR HEMOGLOBIN 30 pg (25-35); MEAN CORPUSCULAR HGB CONC 33 g/dL (31-37); MEAN CORPUSCULAR VOLUME 91 fL (79-100); MONO # 0.7 x10^3/uL (0.0-1.1); MONO % 15 % (0-9); NEUT % 63 % (31-73); PLATELET COUNT 320 x10^3/uL (140-400); RED BLOOD COUNT 3.86 x10^6/uL (3.50-5.40); RED CELL DISTRIBUTION WIDTH 17.2 % (11.5-14.5); WHITE BLOOD COUNT 4.7 x10^3/uL (4.0-11.0)
[2018-06-21 17:11] LABS: CALCIUM 7.6 mg/dL (8.5-10.1); CREATININE 0.7 mg/dL (0.6-1.0); GFR 82.5; POTASSIUM 3.1 mmol/L (3.5-5.1)
[2018-06-21 17:17] LABS: ALBUMIN 2.5 g/dL (3.4-5.0); ALBUMIN/GLOBULIN RATIO 0.9 (1.0-1.7); TOTAL BILIRUBIN 0.1 mg/dL (0.2-1.0); TOTAL PROTEIN 5.4 g/dL (6.4-8.2)
[2018-06-21 17:30] VITALS: BP 124/63
[2018-06-21] MEDS ORDERED: POTASSIUM CHLORIDE 20 MEQ/15 ML ORAL LIQUID. PO ONE (17:30)
[2018-06-21] MEDS ORDERED: ONDANSETRON PF 4 MG/2 ML VIAL. IV ONE (17:30)
--- NOTE | 2018-06-21 17:54 | PHYS DOC ---
Past Medical History Past Medical History: Cancer Additional Past Medical Histor: RECTAL CA, tachycardia, Past Surgical History: Cholecystectomy, Hysterectomy, Tonsillectomy, Other Additional Past Surgical Histo: BUNION, RECTAL, BREAST BIOPSY, left eye, spinal polio Alcohol Use: None Drug Use: None Adult General Chief Complaint Chief Complaint: GI PROBLEM HPI HPI Patient is a 72 year old female with multiple previous medical history as she has a history of rectal cancer she has history of cholecystectomy chronic diarrhea irritable bowel syndrome prior SBO presenting with primary complaint of diarrhea. She says she occasionally has a feeling of "gripping" and then she' ll have a diarrhea and her abdomen will feel better she says it is actually not painful at this time around it feels different than when she was here for a bowel obstruction a couple months back. She is really not having any vomiting she is just having decreased by mouth intake because she is worried about having diarrhea. She says every time she tries to eat something it comes out as diarrhea. She says that she normally is on the fodmap but she had a few almonds a couple nights ago that she says she knows she should not had she says they might have had food coloring in them and that exacerbates her diarrhea and shortly thereafter she developed some itching and then has had frequent episodes of diarrhea over the last 2 days. No fever she did have some antibiotics for 6 weeks that just stopped 2 weeks ago as well. She had admission for small bowel infection a couple months back she had an NG tube with improvement symptomatically Review of Systems Review of Systems Constitutional: Denies fever or chills [] Eyes: Denies change in visual acuity, redness, or eye pain [] HENT: Denies nasal congestion or sore throat [] : Denies dysuria or hematuria [] Musculoskeletal: Denies back pain or joint pain [] Integument: Denies rash or skin lesions [] Neurologic: Denies headache, focal weakness or sensory changes [] Endocrine: Denies polyuria or polydipsia [] All other systems were reviewed and found to be within normal limits, except as documented in this note. Current Medications Current Medications Current Medications Medications (Trade) Dose Ordered Sig/Josefina Start Time Stop Time Status Last Admin Dose Admin Ondansetron HCl (Zofran) 4 mg 1X ONCE 06/21/18 17:30 06/21/18 17:31 DC 06/21/18 17:36 4 MG Potassium Chloride (KCl Oral Soln) 40 meq 1X ONCE 06/21/18 17:30 06/21/18 17:31 DC 06/21/18 17:38 40 MEQ Sodium Chloride 1,000 ml @ 1,000 mls/hr 1X ONCE 06/21/18 16:15 06/21/18 17:14 DC 06/21/18 16:19 1,000 MLS/HR Allergies Allergies Allergies Coded Allergies Type Severity Reaction Last Updated Verified latex Allergy Intermediate EYE SWELLING; RASH 03/08/18 Yes codeine Adverse Reaction Intermediate Makes her feel uncomfortable 03/08/18 Yes Physical Exam Physical Exam Constitutional: Well developed, slightly under nourished, no acute distress, non -toxic appearance. [] HENT: Normocephalic, atraumatic, bilateral external ears normal, oropharynx dry , no oral exudates, nose normal. [] Eyes: PERRLA, EOMI, conjunctiva normal, no discharge. [] Neck: Normal range of motion, no tenderness, supple, no stridor. [] Cardiovascular:Heart rate regular rhythm, no murmur [] Lungs & Thorax: Bilateral breath sounds clear to auscultation [] Abdomen: Bowel sounds normal, soft, no tenderness, no masses, no pulsatile masses. [] Skin: Warm, dry, no erythema, no rash. [] Extremities: No tenderness, no cyanosis, no clubbing, ROM intact, no edema. [] Neurologic: Alert and oriented X 3, normal motor function, normal sensory function, no focal deficits noted. [] Psychologic: Affect normal, judgement normal, mood normal. [] Current Patient Data Vital Signs Vital Signs Date Time Temp Pulse Resp B/P (MAP) Pulse Ox O2 Delivery O2 Flow Rate FiO2 06/21/18 17:00 72 141/61 (87) 100 Room Air 06/21/18 15:32 98.1 16 98.1 Lab Values Laboratory Tests Test 06/21/18 15:55 06/21/18 16:55 White Blood Count 4.7 x10^3/uL (4.0-11.0) Red Blood Count 3.86 x10^6/uL (3.50-5.40) Hemoglobin 11.5 g/dL (12.0-15.5) L Hematocrit 35.1 % (36.0-47.0) L Mean Corpuscular Volume 91 fL (79-100) Mean Corpuscular Hemoglobin 30 pg (25-35) Mean Corpuscular Hemoglobin Concent 33 g/dL (31-37) Red Cell Distribution Width 17.2 % (11.5-14.5) H Platelet Count 320 x10^3/uL (140-400) Neutrophils (%) (Auto) 63 % (31-73) Lymphocytes (%) (Auto) 20 % (24-48) L Monocytes (%) (Auto) 15 % (0-9) H Eosinophils (%) (Auto) 2 % (0-3) Basophils (%) (Auto) 1 % (0-3) Neutrophils # (Auto) 3.0 x10^3uL (1.8-7.7) Lymphocytes # (Auto) 0.9 x10^3/uL (1.0-4.8) L Monocytes # (Auto) 0.7 x10^3/uL (0.0-1.1) Eosinophils # (Auto) 0.1 x10^3/uL (0.0-0.7) Basophils # (Auto) 0.0 x10^3/uL (0.0-0.2) Sodium Level 139 mmol/L (136-145) Potassium Level 3.1 mmol/L (3.5-5.1) L Chloride Level 104 mmol/L (98-107) Carbon Dioxide Level 22 mmol/L (21-32) Anion Gap 13 (6-14) Blood Urea Nitrogen 15 mg/dL (7-20) Creatinine 0.7 mg/dL (0.6-1.0) Estimated GFR (Cockcroft-Gault) 82.5 BUN/Creatinine Ratio 21 (6-20) H Glucose Level 69 mg/dL (70-99) L Calcium Level 7.6 mg/dL (8.5-10.1) L Total Bilirubin 0.1 mg/dL (0.2-1.0) L Aspartate Amino Transferase (AST) 15 U/L (15-37) Alanine Aminotransferase (ALT) 16 U/L (14-59) Alkaline Phosphatase 53 U/L (46-116) Total Protein 5.4 g/dL (6.4-8.2) L Albumin 2.5 g/dL (3.4-5.0) L Albumin/Globulin Ratio 0.9 (1.0-1.7) L Laboratory Tests 06/21/18 15:55 Laboratory Tests 06/21/18 16:55 EKG EKG [] Radiology/Procedures Radiology/Procedures [] Course & Med Decision Making Course & Med Decision Making Pertinent Labs and Imaging studies reviewed. (See chart for details) []Labs show mild hypokalemia as well as hypoglycemia patient was given an oral challenge in the emergency room with improvement she was able to keep that down at this time. She is a 72-year-old female multiple medical problems as noted above coming with primary complaint of diarrhea she has a history of chronic diarrhea it sounds that she is just having an exacerbation of that issue. She has good bowel sounds are abdomen is totally nontender she is really denying any pain in the emergency room and she's had no vomiting for all those reasons I think a bowel distraction is much less likely had rather not expose her to the unnecessary testing at this time I did advise her to come back for any of those new or concerning symptoms otherwise I did try to get a stool sample but she did take Lomotil prior to arrival and she was unable to produce one. She has follow-up with her primary care doctor tomorrow I think that's reasonable she was given potassium supplementation the emergency room and she plans to continue her same at home Dragon Disclaimer Dragon Disclaimer This electronic medical record was generated, in whole or in part, using a voice recognition dictation system. Departure Departure Impression: Primary Impression: Diarrhea Additional Impression: Hypokalemia Disposition: HOME, SELF-CARE Condition: STABLE Referrals: ALLYN PATE MD (PCP) Patient Instructions: Diarrhea, Wugb-[id number] Problem Qualifiers TOMMY MARQUEZ MD Jun 21, 2018 17:54
== END 2018-06-21 17:40 | disposition home or self-care (01) ==
LOC: ER 15:28
DX: R19.7 Diarrhea, unspecified (principal); E87.6 Hypokalemia; K52.9 Noninfective gastroenteritis and colitis, unspecified; Z85.048 Personal history of other malignant neoplasm of rectum, rectosigmoid junction, and anus; Z90.49 Acquired absence of other specified parts of digestive tract; Z90.710 Acquired absence of both cervix and uterus; Z88.5 Allergy status to narcotic agent; Z91.040 Latex allergy status
CPT/HCPCS: 36415; 80053; 85025; 96361; 96374; 99283; J2405; J7030

== ENCOUNTER → 2018-06-23 | Outpatient (CLI) | payer MEDICARE, BC ==
[2018-06-21 17:30] VITALS: BP 124/63
[~2018-06-23] MED LIST changes: +IOHEXOL 300 MG/ML 100ML VIAL. IV ONE; +MERO500V15 IV; +METO25TA4 PO; +Tpn Per Pharmacy MC
--- NOTE | 2018-06-23 16:26 | KCIC ---
CT CHEST W/CONTRAST Indication: Right lower lobe abscess Technique: Postcontrast CT imaging was performed of the chest, multiplanar reconstruction images submitted. One or more of the following individualized dose reduction techniques were utilized for this examination: 1. Automated exposure control 2. Adjustment of the mA and/or kV according to patient size 3. Use of iterative reconstruction technique. Comparison: Chest CT April 14, 2018; CT abdomen pelvis exam 05/16/2018 Findings: Previously seen site of abnormal cavitary lesion/abscess of the superior right lower lobe has decreased in size. There is some residual density in this region about 3.5 cm transverse by 2.4 cm AP by up to about 1.9 cm cc. This previously measured about 7.5 cm transverse by 6.2 cm AP by 6.6 cm cc. Previously seen air-fluid level is no longer visualized. Small nodule more medially measuring about 0.3 cm image 22 is unchanged. Peripheral subpleural right lower lobe density has decreased, mild residual such as seen axial image 33. There is also adjacent right lower lobe bronchiectasis. Small 0.4 cm right lower lobe nodule axial image 42 is unchanged. Somewhat nodular right lower lobe density more medially axial image 44 about 1 cm maximal dimension is similar. Mild posterior right upper lobe subpleural density images 10 and 11 series 2 is unchanged, more likely component of fibrotic change. Tiny right upper lobe nodule axial image 10 about 0.3 cm is unchanged. There is calcified left lower lobe nodule. There is no pericardial or pleural fluid or pneumothorax. There is no new infiltrate. There is uqiqi-vn-ezvsbjif size hiatal hernia larger than previously, nonspecific wall thickening involved segment. There are no significant new significantly enlarged nodes of the mediastinum or hilar regions. There are some calcified mediastinal and left hilar nodes. There are small nonspecific sclerotic foci of T7 and T4 vertebral bodies as seen previously. Bowel is not evaluated in its entirety. There is prominent distention of the visualized stomach. There is all prominent dilatation of visualized segments of proximal small bowel bowel and also some fluid in the visualized colon. Findings were present on 05/16/2018 CT abdomen pelvis exam. IMPRESSION: 1. Previously seen presumed abscess of the superior right lower lobe is much smaller with resolution of previously seen air-fluid level, some residual density present at this location. There are some other small foci of pulmonary nodularity as stated, overall unchanged. There is no new infiltrate or pleural fluid. Continued surveillance of larger area of density such as in 3-6 months is recommended. 2. There is prominent distention of visualized stomach, also fluid in the visualized colon and fluid dilated small bowel, bowel not fully evaluated. However findings were also present on 05/16/2018 CT abdomen pelvis exam. 3. Euwxl-mt-znwzrtgl size hiatal hernia is larger, nonspecific wall thickening of involved segment, underlying mass not excludable by this exam. Electronically signed by: Zechariah Langley MD (06/23/2018 4:24 PM) [id number]
== END | disposition home or self-care (01) ==
LOC: KCIC CT 10:12
PROVIDERS: ATTEND Family Medicine
DX: K44.9 Diaphragmatic hernia without obstruction or gangrene (principal); R91.8 Other nonspecific abnormal finding of lung field; Z87.891 Personal history of nicotine dependence
CPT/HCPCS: 71260; Q9967

== ENCOUNTER 2018-08-17 06:14 | Inpatient (IN) | payer MEDICARE, BC ==
[~2018-08-17] VITALS: Ht 160 cm; Wt 41.1 kg
[~2018-08-17 06:14] MED LIST changes: -IOHEXOL 300 MG/ML 100ML VIAL. IV ONE; -MERO500V15 IV; -METO25TA4 PO; -Tpn Per Pharmacy MC
[2018-08-17] MEDS ORDERED: IV NORMAL SALINE 1000ML BAG 1,000 ML IV SCH (06:30)
[2018-08-17] MEDS ORDERED: ONDANSETRON PF 4 MG/2 ML VIAL. IV ONE (06:30)
--- NOTE | 2018-08-17 06:34 | PHYS DOC ---
Past Medical History Past Medical History: Cancer Additional Past Medical Histor: RECTAL CA, tachycardia, Past Surgical History: Cholecystectomy, Hysterectomy, Tonsillectomy, Other Additional Past Surgical Histo: BUNION, RECTAL, BREAST BIOPSY, left eye, spinal polio Alcohol Use: None Drug Use: None Adult General Chief Complaint Chief Complaint: NAUSEA/VOMITING/DIARRHA HPI HPI Patient is a 73 year old female, who presents to the emergency department via EMS. She states that she has not been feeling well, and been sick for the past several months. She states overnight, she vomited numerous times, and became increasingly weak. She has not had any bloody emesis, black or bloody stools, or diarrhea. She does have a remote history of colon cancer, but states that she was last told that she was in remission. However, she reports that she has been losing weight since February and appears extremely cachectic. She denies any pain at this time. She denies any headache, chest pain, abdominal pain, numbness, or weakness. There are no alleviating or exacerbating factors to her symptoms. Review of Systems Review of Systems Constitutional: Denies fever or chills. Reports weight loss[] Eyes: Denies change in visual acuity, redness, or eye pain [] HENT: Denies nasal congestion or sore throat [] Respiratory: Denies cough or shortness of breath [] Cardiovascular: The patient denies any shortness of breath, chest pain, palpitations, or orthopnea [] GI: Denies abdominal pain, bloody stools or diarrhea [] : Denies dysuria or hematuria [] Musculoskeletal: Denies back pain or joint pain [] Integument: Denies rash or skin lesions [] Neurologic: Denies headache, focal weakness or sensory changes [] Endocrine: Denies polyuria or polydipsia [] All other systems were reviewed and found to be within normal limits, except as documented in this note. Current Medications Current Medications Current Medications Medications (Trade) Dose Ordered Sig/Josefina Start Time Stop Time Status Last Admin Dose Admin Ertapenem 50 ml @ 100 mls/hr 1X ONCE 08/17/18 09:15 08/17/18 09:44 UNV Info (CONTRAST GIVEN -- Rx MONITORING) 1 each PRN DAILY PRN 08/17/18 07:15 08/19/18 07:14 Iohexol (Omnipaque 240 Mg/ml) 30 ml 1X ONCE 08/17/18 07:15 08/17/18 07:16 DC 08/17/18 07:15 30 ML Iohexol (Omnipaque 300 Mg/ml) 75 ml 1X ONCE 08/17/18 07:15 08/17/18 07:16 DC 08/17/18 08:11 75 ML Magnesium Sulfate/ Dextrose 100 ml @ 100 mls/hr 1X ONCE 08/17/18 07:45 08/17/18 08:44 DC Ondansetron HCl (Zofran) 4 mg 1X ONCE 08/17/18 06:30 08/17/18 06:31 DC 08/17/18 06:55 4 MG Potassium Chloride/Water 100 ml @ 100 mls/hr Q1H 08/17/18 07:45 08/17/18 09:44 08/17/18 07:56 100 MLS/HR Sodium Chloride 1,000 ml @ 1,000 mls/hr 1X ONCE 08/17/18 07:45 08/17/18 08:44 DC 08/17/18 07:45 1,000 MLS/HR Allergies Allergies Allergies Coded Allergies Type Severity Reaction Last Updated Verified latex Allergy Intermediate EYE SWELLING; RASH 03/08/18 Yes codeine Adverse Reaction Intermediate Makes her feel uncomfortable 03/08/18 Yes Physical Exam Physical Exam PHYSICAL EXAM: CONSTITUTIONAL: The patient is extremely cachectic. HEAD: normocephalic, atraumatic EENT: PERRL, EOMI. Conjunctivae pale, sclerae non-icteric; dry mucous membranes. NECK: Supple, non-tender; no meningismus. LUNGS: Lungs CTA, breathing even and unlabored. Normal air movement. HEART: Regular rate and rhythm, no murmur CHEST: No deformity; non-tender ABDOMEN: The abdomen is soft, and non-tender, no masses or bruits. EXTREM: Normal ROM; no deformity, no calf tenderness. Normal pulses palpable in all extremities. There is 2+ bilateral pitting pedal edema. SKIN: No rash; no diaphoresis. The patient's skin is pale. NEURO: Alert; normal speech and cognition; CN's grossly intact; strength grossly intact without focal deficit. BACK: No CVA TTP. Current Patient Data Vital Signs Vital Signs Date Time Temp Pulse Resp B/P (MAP) Pulse Ox O2 Delivery O2 Flow Rate FiO2 08/17/18 08:26 77 20 128/78 (95) 100 Room Air 08/17/18 06:28 97.7 97.7 Lab Values Laboratory Tests Test 08/17/18 06:29 08/17/18 06:44 White Blood Count 2.7 x10^3/uL (4.0-11.0) L Red Blood Count 5.10 x10^6/uL (3.50-5.40) Hemoglobin 15.2 g/dL (12.0-15.5) Hematocrit 45.3 % (36.0-47.0) Mean Corpuscular Volume 89 fL (79-100) Mean Corpuscular Hemoglobin 30 pg (25-35) Mean Corpuscular Hemoglobin Concent 34 g/dL (31-37) Red Cell Distribution Width 16.0 % (11.5-14.5) H Platelet Count 273 x10^3/uL (140-400) Neutrophils (%) (Auto) 83 % (31-73) H Lymphocytes (%) (Auto) 11 % (24-48) L Monocytes (%) (Auto) 5 % (0-9) Eosinophils (%) (Auto) 0 % (0-3) Basophils (%) (Auto) 0 % (0-3) Neutrophils # (Auto) 2.3 x10^3uL (1.8-7.7) Lymphocytes # (Auto) 0.3 x10^3/uL (1.0-4.8) L Monocytes # (Auto) 0.1 x10^3/uL (0.0-1.1) Eosinophils # (Auto) 0.0 x10^3/uL (0.0-0.7) Basophils # (Auto) 0.0 x10^3/uL (0.0-0.2) Platelet Estimate Pending Prothrombin Time 17.0 SEC (11.7-14.0) H Prothrombin Time INR 1.4 (0.8-1.1) H Sodium Level 137 mmol/L (136-145) Potassium Level 3.2 mmol/L (3.5-5.1) L Chloride Level 100 mmol/L (98-107) Carbon Dioxide Level 20 mmol/L (21-32) L Anion Gap 17 (6-14) H Blood Urea Nitrogen 32 mg/dL (7-20) H Creatinine 0.7 mg/dL (0.6-1.0) Estimated GFR (Cockcroft-Gault) 82.3 BUN/Creatinine Ratio 46 (6-20) H Glucose Level 66 mg/dL (70-99) L Calcium Level 7.8 mg/dL (8.5-10.1) L Magnesium Level 1.4 mg/dL (1.8-2.4) L Total Bilirubin 0.4 mg/dL (0.2-1.0) Aspartate Amino Transferase (AST) 50 U/L (15-37) H Alanine Aminotransferase (ALT) 85 U/L (14-59) H Alkaline Phosphatase 249 U/L (46-116) H Troponin I Quantitative < 0.017 ng/mL (0.000-0.055) Total Protein 6.1 g/dL (6.4-8.2) L Albumin 2.6 g/dL (3.4-5.0) L Albumin/Globulin Ratio 0.7 (1.0-1.7) L Lipase 49 U/L (73-393) L Urine Collection Type Unknown Urine Color Yellow Urine Clarity Clear Urine pH 5.5 Urine Specific Michie 1.025 Urine Protein Negative mg/dL (NEG-TRACE) Urine Glucose (UA) Negative mg/dL (NEG) Urine Ketones (Stick) Negative mg/dL (NEG) Urine Blood Negative (NEG) Urine Nitrite Negative (NEG) Urine Bilirubin Small (NEG) Urine Urobilinogen Dipstick 0.2 mg/dL (0.2 mg/dL) Urine Leukocyte Esterase Negative (NEG) Urine RBC 0 /HPF (0-2) Urine WBC 0 /HPF (0-4) Urine Squamous Epithelial Cells None /LPF Urine Transitional Epithelial Cells Few /LPF Urine Bacteria 0 /HPF (0-FEW) Urine Mucus Slight /LPF Laboratory Tests 08/17/18 06:29 Laboratory Tests 08/17/18 06:29 EKG EKG [Sinus rhythm at a rate of 81 bpm with occasional APCs, normal axis, normal intervals, nonspecific ST/T changes.] Radiology/Procedures Radiology/Procedures [PROCEDURE: CT ABD PELV W/ORAL&IV CONTRAST CT ABD PELV W/ORAL IV CONTRAST Indication: Nausea and vomiting. Prior colon cancer. Hysterectomy. Cholecystectomy. Small bowel obstruction. Exposure: One or more of the following individualized dose reduction techniques were utilized for this examination: 1. Automated exposure control 2. Adjustment of the mA and/or kV according to patient size 3. Use of iterative reconstruction technique. Technique: Intravenous contrast was given. No oral contrast per request. Comparison: May 06, 2018. Dense calcified nodule in the left lung base is stable. There is mild nodularity along the posterior inferior right pleura, not seen previously. Largest component measures 9 mm in diameter. Liver is unremarkable. Spleen is small in size, mildly heterogeneous. Pancreas is poorly seen may be due to atrophy. No evidence of adrenal mass. Kidneys demonstrate symmetric enhancement. No evidence of hydronephrosis. Surgical clips in the gallbladder fossa. The aorta is mildly calcified no evidence of aortic aneurysm. No significant lymph node enlargement. Severe distention of the stomach with fluid and air. Hiatal hernia. Severe distention of duodenum and small bowel loops with gas and fluid. There is vbki-ip-nbahaaol retained stool in the colon. No significant colonic wall thickening. There are anastomotic type sutures at the rectum. There are some pockets of gas density in the left lower quadrant. Largest area is seen laterally on series 2, image 46 with some additional smaller pockets below this. This is concerning for free intraperitoneal gas. There is diffuse stranding within the patient's fat. No large ascites accumulation is seen. Urinary bladder is distended. No aggressive bone destruction. Degenerative changes at the skeletal pelvis. Degenerative changes of the spine. IMPRESSION: 1. Severe distention of stomach and most of the small bowel, most compatible with a distal small bowel obstruction. A somewhat similar appearance was seen on the previous exam. 2. There are some pockets of gas density in the left lower quadrant and pelvis, concerning for pneumoperitoneum. Source of this gas is uncertain but is concerning for bowel perforation. 3. There is a subpleural nodule in the right lower lobe posteriorly measuring 9 mm. This could just represent some focal consolidation but a pulmonary nodule is not excludable, raising concern for metastatic disease of the chest. Recommend follow-up CT chest scan in 3 months. ] Course & Med Decision Making Course & Med Decision Making Pertinent Labs and Imaging studies reviewed. (See chart for details) []9:10 AM: The patient's condition remains clinically stable. CT scan is been reviewed and discussed with the radiologist. General surgery, Dr. Hylton, has been consult that and will evaluate the patient. I have paged the patient's PCP to admit the patient and I'm awaiting a callback. An NG tube will be placed. Antibiotics will be started. Dragon Disclaimer Dragon Disclaimer This electronic medical record was generated, in whole or in part, using a voice recognition dictation system. Departure Departure Impression: Primary Impression: SBO (small bowel obstruction) Additional Impression: Pneumoperitoneum Disposition: ADMITTED INPATIENT Admitting Physician: Nicole Donaldson Condition: GUARDED Referrals: ALLYN PATE MD (PCP) Problem Qualifiers ALICIA FRIED MD August 17, 2018 06:34
[2018-08-17 06:38] LABS: BASO % 0 % (0-3); EOS % 0 % (0-3); HEMATOCRIT 45.3 % (36.0-47.0); HEMOGLOBIN 15.2 g/dL (12.0-15.5); LYMPH # 0.3 x10^3/uL (1.0-4.8); LYMPH % 11 % (24-48); MEAN CORPUSCULAR HEMOGLOBIN 30 pg (25-35); MEAN CORPUSCULAR HGB CONC 34 g/dL (31-37); MEAN CORPUSCULAR VOLUME 89 fL (79-100); MONO # 0.1 x10^3/uL (0.0-1.1); MONO % 5 % (0-9); NEUT # 2.3 x10^3uL (1.8-7.7); NEUT % 83 % (31-73); PLATELET COUNT 273 x10^3/uL (140-400); WHITE BLOOD COUNT 2.7 x10^3/uL (4.0-11.0)
[2018-08-17 06:47] LABS: CALCIUM 7.8 mg/dL (8.5-10.1); CREATININE 0.7 mg/dL (0.6-1.0); GFR 82.3; POTASSIUM 3.2 mmol/L (3.5-5.1)
[2018-08-17 06:53] LABS: ALBUMIN 2.6 g/dL (3.4-5.0); ALBUMIN/GLOBULIN RATIO 0.7 (1.0-1.7); MAGNESIUM 1.4 mg/dL (1.8-2.4); TOTAL BILIRUBIN 0.4 mg/dL (0.2-1.0); TOTAL PROTEIN 6.1 g/dL (6.4-8.2)
[2018-08-17 06:58] LABS: BILIRUBIN,URINE SMALL (NEG); CLARITY,URINE CLEAR; COLOR,URINE YELLOW; NITRITE,URINE NEGATIVE (NEG); PH,URINE 5.5; PROTEIN,URINE NEGATIVE (NEG-TRACE); UROBILINOGEN,URINE 0.2 mg/dL (0.2 mg/dL)
[2018-08-17] MEDS ORDERED: CONTRAST GIVEN. MC PRN (07:15)
[2018-08-17] MEDS ORDERED: IOHEXOL 240 MG/ML 50ML VIAL. PO ONE (07:15)
[2018-08-17] MEDS ORDERED: IOHEXOL 300 MG/ML 100ML VIAL. IV ONE (07:15)
[2018-08-17 07:25] LABS: BACTERIA,URINE 0 /HPF (0-FEW); RBC,URINE 0 /HPF (0-2); WBC,URINE 0 /HPF (0-4)
--- NOTE | 2018-08-17 07:40 | EKG ---
[facility] [address] [place] [address] Test Date: 2018-08-17 Test Time: 06:38:41 Pat Name: CHELSIE PINEDA Department: Room: Gender: F Cardroom Hand: : 1945 Requested By: ALICIA FRIED Order Number: [id number] Reading MD: Measurements Intervals [place] Rate: 81 P: 90 FL: 138 QRS: 81 QRSD: 76 T: 71 QT: 422 QTc: 496 Interpretive Statements SINUS RHYTHM ATRIAL PREMATURE COMPLEX(ES) NON SPECIFIC T ABNORMALITY PROLONGED QT BORDERLINE ECG No previous ECG available for comparison
--- NOTE | 2018-08-17 07:43 | RAD ---
Portable chest, 08/17/2018: HISTORY: Weakness The heart size is normal. There is moderate streaky right suprahilar infiltrate at the level where a cavitary lesion was present on the previous study. There is now a 4 cm rounded mass projected more inferiorly in the right perihilar region. A calcified granuloma is present in the left base. There is no evidence of pleural fluid or pneumothorax. The bony structures are demineralized. IMPRESSION: Increasing streaky right perihilar infiltrate and a rounded mass which appears new. CT scanning is suggested for further evaluation. Electronically signed by: Yuan Arboleda MD (08/17/2018 7:40 AM) [facility]
[2018-08-17] MEDS ORDERED: IV NORMAL SALINE 1000ML BAG 1,000 ML IV ONE (07:45)
[2018-08-17] MEDS ORDERED: MAGNESIUM SULFATE 1GM 100 ML IV ONE (07:45)
[2018-08-17] MEDS: POTASSIUM CHLORIDE 10MEQ 100 ML IV SCH ×2 (07:56→09:23)
--- NOTE | 2018-08-17 08:53 | RAD ---
CT ABD PELV W/ORAL IV CONTRAST Indication: Nausea and vomiting. Prior colon cancer. Hysterectomy. Cholecystectomy. Small bowel obstruction. Exposure: One or more of the following individualized dose reduction techniques were utilized for this examination: 1. Automated exposure control 2. Adjustment of the mA and/or kV according to patient size 3. Use of iterative reconstruction technique. Technique: Intravenous contrast was given. No oral contrast per request. Comparison: May 06, 2018. Dense calcified nodule in the left lung base is stable. There is mild nodularity along the posterior inferior right pleura, not seen previously. Largest component measures 9 mm in diameter. Liver is unremarkable. Spleen is small in size, mildly heterogeneous. Pancreas is poorly seen may be due to atrophy. No evidence of adrenal mass. Kidneys demonstrate symmetric enhancement. No evidence of hydronephrosis. Surgical clips in the gallbladder fossa. The aorta is mildly calcified no evidence of aortic aneurysm. No significant lymph node enlargement. Severe distention of the stomach with fluid and air. Hiatal hernia. Severe distention of duodenum and small bowel loops with gas and fluid. There is ihuy-im-vihfjofy retained stool in the colon. No significant colonic wall thickening. There are anastomotic type sutures at the rectum. There are some pockets of gas density in the left lower quadrant. Largest area is seen laterally on series 2, image 46 with some additional smaller pockets below this. This is concerning for free intraperitoneal gas. There is diffuse stranding within the patient's fat. No large ascites accumulation is seen. Urinary bladder is distended. No aggressive bone destruction. Degenerative changes at the skeletal pelvis. Degenerative changes of the spine. IMPRESSION: 1. Severe distention of stomach and most of the small bowel, most compatible with a distal small bowel obstruction. A somewhat similar appearance was seen on the previous exam. 2. There are some pockets of gas density in the left lower quadrant and pelvis, concerning for pneumoperitoneum. Source of this gas is uncertain but is concerning for bowel perforation. 3. There is a subpleural nodule in the right lower lobe posteriorly measuring 9 mm. This could just represent some focal consolidation but a pulmonary nodule is not excludable, raising concern for metastatic disease of the chest. Recommend follow-up CT chest scan in 3 months. FOR INTERNAL CODING PURPOSES Critical result: Findings discussed with Dr. Gee in the emergency room at 08/17/2018 8:49 AM. RESULT CODE: (C) Electronically signed by: Manish Velzaco MD (08/17/2018 8:50 AM) [id number]
[2018-08-17] MEDS ORDERED: ERTAPENEM 1GM IVPB (GENERIC) 50 ML IV ONE (09:15)
[2018-08-17] MEDS ORDERED: MEROPENEM 500 MG in IV NORMAL SALINE 50ML 50 ML IV ONE (09:30)
--- NOTE | 2018-08-17 09:38 | PDOC2 ---
AMARILIS ABDI BARBER STYLIST 08/17/18 0938: CONSULT Date of Consult Date of Consult DATE: 08/17/18 TIME: 09:29 Reason for Consult Reason for Consult: SBO Referring Physician Referring Physician: ER Identification/Chief Complaint Chief Complaint vomiting Source Source: Chart review, Patient History of Present Illness Reason for Visit: Patient know from previous admission. She had lap bessie in Feb [address] Gary. She was treated as an inpatient in Apr 2018 for SBO, SBFt showed a partial obstruction, however Gastrografin appeared therapeutic and improved. She reports ongoing loose stools since cholecystectomy. She reports intermittent vomiting, nausea since June, however this was significantly worse yesterday. Denies abdominal pain. Reports low appetite, 5 lb weight loss since admission in Apr. Past Medical History Cardiovascular: HTN, Hyperlipidemia, Other Pulmonary: No pertinent hx CENTRAL NERVOUS SYSTEM: Other GI: GERD, Irritable bowel disease Heme/Onc: Anemia NOS, Cancer Hepatobiliary: No pertinent hx Psych: No pertinent hx Musculoskeletal: Osteoarthritis Rheumatologic: No pertinent hx Infectious disease: No pertinent hx, Other Renal/: No pertinent hx Endocrine: Osteopenia Past Surgical History Past Surgical History: Cholecystectomy, Tonsillectomy, Colon Resection, Other Family History Family History: Coronary Artery Disease, Heart Disease Social History No ALCOHOL: none Drugs: None Lives: with Family Current Problem List Problem List Problems Medical Problems: (1) Pneumoperitoneum Status: Acute Current Medications Current Medications Current Medications Sodium Chloride 1,000 ml @ 100 mls/hr Q10H IV Last administered on 08/17/18at 06:55; Start 08/17/18 at 06:30; Stop 08/17/18 at 16:29 Ondansetron HCl (Zofran) 4 mg 1X ONCE IV Last administered on 08/17/18at 06:55; Start 08/17/18 at 06:30; Stop 08/17/18 at 06:31; Status DC Iohexol (Omnipaque 240 Mg/ml) 30 ml 1X ONCE PO Last administered on 08/17/18at 07:15; Start 08/17/18 at 07:15; Stop 08/17/18 at 07:16; Status DC Iohexol (Omnipaque 300 Mg/ml) 75 ml 1X ONCE IV Last administered on 08/17/18at 08:11; Start 08/17/18 at 07:15; Stop 08/17/18 at 07:16; Status DC Info (CONTRAST GIVEN -- Rx MONITORING) 1 each PRN DAILY PRN MC SEE COMMENTS; Start 08/17/18 at 07:15; Stop 08/19/18 at 07:14 Sodium Chloride 1,000 ml @ 1,000 mls/hr 1X ONCE IV Last administered on 08/17/18at 07:45; Start 08/17/18 at 07:45; Stop 08/17/18 at 08:44; Status DC Magnesium Sulfate/ Dextrose 100 ml @ 100 mls/hr 1X ONCE IV ; Start 08/17/18 at 07:45; Stop 08/17/18 at 08:44; Status DC Potassium Chloride/Water 100 ml @ 100 mls/hr Q1H IV Last administered on 08/17/18at 09:23; Start 08/17/18 at 07:45; Stop 08/17/18 at 09:44 Ertapenem 50 ml @ 100 mls/hr 1X ONCE IV ; Start 08/17/18 at 09:15; Stop 08/17/18 at 09:44; Status UNV Active Scripts Active Avelox (Moxifloxacin Hcl) 400 Mg Tablet 1 Tab PO DAILY Klor-Con 10 (Potassium Chloride) 10 Meq Tablet.er 10 Meq PO DAILY 30 Days Diphenoxylate-Atropine Tablet (Diphenoxylate Hcl/Atropine) 1 Each Tablet 1 Tab PO PRN QID PRN 30 Days Prevalite Packet (Cholestyramine/Aspartame) 4 Gm Powd.pack 4 Gm PO BID 60 Days Famotidine 20 Mg Tablet 20 Mg PO QHS 60 Days Aspirin Ec (Aspirin) 81 Mg Tablet.dr 81 Mg PO DAILYWBKFT 30 Days Toprol Xl (Metoprolol Succinate) 50 Mg Tab.er.24h 50 Mg PO HS 30 Days Hydrocodone-Apap 5-325 (Hydrocodone Bit/Acetaminophen) 1 Tab Tablet 1 Tab PO PRN Q4HRS PRN Reported Imodium A-D (Loperamide HCl) 2 Mg Capsule 2 Mg PO PRN PRN Xyzal (Levocetirizine Dihydrochloride) 5 Mg Tablet 5 Mg PO DAILY Oxybutynin Chloride 5 Mg Tablet 5 Mg PO TID Zofran (Ondansetron Hcl) 4 Mg Tablet 4 Mg PO BID PRN Multivitamins (Multivitamin) 1 Each Tablet 1 Each PO DAILY Vitamin D3 (Cholecalciferol (Vitamin D3)) 1,000 Unit Tablet 1,000 Unit PO DAILY Systane Ultra 0.4-0.3% Eye Drp (Propylene Glycol/Peg 400) 10 Ml Drops 10 Ml OP BID Allergies Allergies: Coded Allergies: latex (Verified Allergy, Intermediate, EYE SWELLING; RASH, 03/08/18) codeine (Verified Adverse Reaction, Intermediate, Makes her feel uncomfortable, 03/08/18) ROS General: No: Chills, Other (fevers ) PSYCHOLOGICAL ROS: No: Anxiety, Depression Eyes: No Blurry vision, No Double vision HEENT: No: Heacaches, Sore Throat Hematological and Lymphatic: No: Bleeding Problems, Blood Clots Respiratory: No: Cough, Shortness of breath Cardiovascular: No Chest Pain, No Palpitations Gastrointestinal: Yes Other (see hpi) Genitourinary: No Dysuria, No Hematuria Musculoskeletal: No Joint Pain, No Muscle Pain Neurological: No Impaired Coord/balance, No Numbness/Tingling Skin: No Pruritus, No Rash Physical Exam General: Alert, Cooperative, No acute distress HEENT: Atraumatic, PERRLA, Mucous membr. moist/pink Lungs: Clear to auscultation Heart: Regular rate, Normal S1, Normal S2 Abdomen: Soft, Other (distended, NTTP on exam) Extremities: No clubbing, No cyanosis Skin: No rashes, No breakdown Neuro: Normal gait, Normal speech Psych/Mental Status: Mental status NL, Mood NL MUSCULOSKELETAL: No deformity, No swelling Vitals VITALS Vital Signs Date Time Temp Pulse Resp B/P (MAP) Pulse Ox O2 Delivery O2 Flow Rate FiO2 08/17/18 09:25 81 20 117/56 (76) 100 Room Air 08/17/18 06:28 97.7 97.7 Labs Labs Laboratory Tests Test 08/17/18 06:29 08/17/18 06:44 White Blood Count 2.7 x10^3/uL (4.0-11.0) Red Blood Count 5.10 x10^6/uL (3.50-5.40) Hemoglobin 15.2 g/dL (12.0-15.5) Hematocrit 45.3 % (36.0-47.0) Mean Corpuscular Volume 89 fL (79-100) Mean Corpuscular Hemoglobin 30 pg (25-35) Mean Corpuscular Hemoglobin Concent 34 g/dL (31-37) Red Cell Distribution Width 16.0 % (11.5-14.5) Platelet Count 273 x10^3/uL (140-400) Neutrophils (%) (Auto) 83 % (31-73) Lymphocytes (%) (Auto) 11 % (24-48) Monocytes (%) (Auto) 5 % (0-9) Eosinophils (%) (Auto) 0 % (0-3) Basophils (%) (Auto) 0 % (0-3) Neutrophils # (Auto) 2.3 x10^3uL (1.8-7.7) Lymphocytes # (Auto) 0.3 x10^3/uL (1.0-4.8) Monocytes # (Auto) 0.1 x10^3/uL (0.0-1.1) Eosinophils # (Auto) 0.0 x10^3/uL (0.0-0.7) Basophils # (Auto) 0.0 x10^3/uL (0.0-0.2) Prothrombin Time 17.0 SEC (11.7-14.0) Prothromb Time International Ratio 1.4 (0.8-1.1) Sodium Level 137 mmol/L (136-145) Potassium Level 3.2 mmol/L (3.5-5.1) Chloride Level 100 mmol/L (98-107) Carbon Dioxide Level 20 mmol/L (21-32) Anion Gap 17 (6-14) Blood Urea Nitrogen 32 mg/dL (7-20) Creatinine 0.7 mg/dL (0.6-1.0) Estimated GFR (Cockcroft-Gault) 82.3 BUN/Creatinine Ratio 46 (6-20) Glucose Level 66 mg/dL (70-99) Calcium Level 7.8 mg/dL (8.5-10.1) Magnesium Level 1.4 mg/dL (1.8-2.4) Total Bilirubin 0.4 mg/dL (0.2-1.0) Aspartate Amino Transf (AST/SGOT) 50 U/L (15-37) Alanine Aminotransferase (ALT/SGPT) 85 U/L (14-59) Alkaline Phosphatase 249 U/L (46-116) Troponin I Quantitative < 0.017 ng/mL (0.000-0.055) Total Protein 6.1 g/dL (6.4-8.2) Albumin 2.6 g/dL (3.4-5.0) Albumin/Globulin Ratio 0.7 (1.0-1.7) Lipase 49 U/L (73-393) Urine Collection Type Unknown Urine Color Yellow Urine Clarity Clear Urine pH 5.5 Urine Specific [place] 1.025 Urine Protein Negative mg/dL (NEG-TRACE) Urine Glucose (UA) Negative mg/dL (NEG) Urine Ketones (Stick) Negative mg/dL (NEG) Urine Blood Negative (NEG) Urine Nitrite Negative (NEG) Urine Bilirubin Small (NEG) Urine Urobilinogen Dipstick 0.2 mg/dL (0.2 mg/dL) Urine Leukocyte Esterase Negative (NEG) Urine RBC 0 /HPF (0-2) Urine WBC 0 /HPF (0-4) Urine Squamous Epithelial Cells None /LPF Urine Transitional Epithelial Cells Few /LPF Urine Bacteria 0 /HPF (0-FEW) Urine Mucus Slight /LPF Laboratory Tests Test 08/17/18 06:29 08/17/18 06:44 White Blood Count 2.7 x10^3/uL (4.0-11.0) Red Blood Count 5.10 x10^6/uL (3.50-5.40) Hemoglobin 15.2 g/dL (12.0-15.5) Hematocrit 45.3 % (36.0-47.0) Mean Corpuscular Volume 89 fL (79-100) Mean Corpuscular Hemoglobin 30 pg (25-35) Mean Corpuscular Hemoglobin Concent 34 g/dL (31-37) Red Cell Distribution Width 16.0 % (11.5-14.5) Platelet Count 273 x10^3/uL (140-400) Neutrophils (%) (Auto) 83 % (31-73) Lymphocytes (%) (Auto) 11 % (24-48) Monocytes (%) (Auto) 5 % (0-9) Eosinophils (%) (Auto) 0 % (0-3) Basophils (%) (Auto) 0 % (0-3) Neutrophils # (Auto) 2.3 x10^3uL (1.8-7.7) Lymphocytes # (Auto) 0.3 x10^3/uL (1.0-4.8) Monocytes # (Auto) 0.1 x10^3/uL (0.0-1.1) Eosinophils # (Auto) 0.0 x10^3/uL (0.0-0.7) Basophils # (Auto) 0.0 x10^3/uL (0.0-0.2) Prothrombin Time 17.0 SEC (11.7-14.0) Prothromb Time International Ratio 1.4 (0.8-1.1) Sodium Level 137 mmol/L (136-145) Potassium Level 3.2 mmol/L (3.5-5.1) Chloride Level 100 mmol/L (98-107) Carbon Dioxide Level 20 mmol/L (21-32) Anion Gap 17 (6-14) Blood Urea Nitrogen 32 mg/dL (7-20) Creatinine 0.7 mg/dL (0.6-1.0) Estimated GFR (Cockcroft-Gault) 82.3 BUN/Creatinine Ratio 46 (6-20) Glucose Level 66 mg/dL (70-99) Calcium Level 7.8 mg/dL (8.5-10.1) Magnesium Level 1.4 mg/dL (1.8-2.4) Total Bilirubin 0.4 mg/dL (0.2-1.0) Aspartate Amino Transf (AST/SGOT) 50 U/L (15-37) Alanine Aminotransferase (ALT/SGPT) 85 U/L (14-59) Alkaline Phosphatase 249 U/L (46-116) Troponin I Quantitative < 0.017 ng/mL (0.000-0.055) Total Protein 6.1 g/dL (6.4-8.2) Albumin 2.6 g/dL (3.4-5.0) Albumin/Globulin Ratio 0.7 (1.0-1.7) Lipase 49 U/L (73-393) Urine Collection Type Unknown Urine Color Yellow Urine Clarity Clear Urine pH 5.5 Urine Specific [place] 1.025 Urine Protein Negative mg/dL (NEG-TRACE) Urine Glucose (UA) Negative mg/dL (NEG) Urine Ketones (Stick) Negative mg/dL (NEG) Urine Blood Negative (NEG) Urine Nitrite Negative (NEG) Urine Bilirubin Small (NEG) Urine Urobilinogen Dipstick 0.2 mg/dL (0.2 mg/dL) Urine Leukocyte Esterase Negative (NEG) Urine RBC 0 /HPF (0-2) Urine WBC 0 /HPF (0-4) Urine Squamous Epithelial Cells None /LPF Urine Transitional Epithelial Cells Few /LPF Urine Bacteria 0 /HPF (0-FEW) Urine Mucus Slight /LPF Assessment/Plan Assessment/Plan vomiting, SBO recurrent symptoms CT noted free air, ? possible bowel perf--nontender on exam WBC 2.7, INR 1.2, K 3.2 very frail, thin --weight at 94 lbs NG to be placed very poor surgical candidate will review with Dr Gary and have him evaluate EVANS GARY MD 08/17/18 1149: CONSULT Assessment/Plan Assessment/Plan Pt seen and examined; above history reviewed; prior lap bessie for vague abdominal symptoms which did not improve postoperatively; she was admitted earlier in the year with SBO vs ileus picture which showed no definitive obstruction on SBFT. Pt returned to hospital with progressive vomiting, denies abdominal pain. Admits to extreme fatigue and weight loss as well. Xrays also not a right pulmonary perihilar mass. PMH/PSH/ROS/SH as above. Exam: alert, frail, cachectic on her side, NG in place, denies abdominal pain, abdomen mildly distended, nontender with palpation, no hernias, ext neg for edema; CT and labs reviewed; Some focal areas suspicious for free air in LLQ of abdomen, however nontender on exam, no fever or tachycardia; Pt is very frail and poor surgical candidate; given benign exam would favor supportive management and close observation as opposed to immediate surgical intervention. Will ask Dr Stephen for second opinion. In addition the patient has right lung findings, ?abscess, ?neoplasm. Has been present before, will consult Pulmonary. AMARILIS ABDI APRN August 17, 2018 09:38 EVANS GARY MD August 17, 2018 11:49
[2018-08-17] MEDS ORDERED: MORPHINE SULFATE 4 MG/ML VIAL. IV PRN (10:00)
[2018-08-17] MEDS ORDERED: ONDANSETRON PF 4 MG/2 ML VIAL. IV PRN (10:00)
[2018-08-17 10:15] LABS: % BANDS 41 % (0-9); % LYMPHS 10 % (24-48); % MONOS 3 % (0-10); % SEGS 46 % (35-66); ANISOCYTOSIS PRESENT; PLT ESTIMATE ADEQUATE (ADEQUATE)
--- NOTE | 2018-08-17 10:32 | RAD ---
AP view of the abdomen Clinical indications: NG tube placement. FINDINGS: Tip of an NG tube is seen with the proximal body of the stomach. The proximal port is seen within the gastric cardia. There is mild dilatation of central small bowel loops which may be secondary to a bowel obstruction. There is a right midlung zone mass. This was seen on the chest x-ray performed today as well. IMPRESSION: NG tube tip is seen within the proximal body of the stomach. Small bowel obstruction. Electronically signed by: Abelino Reddy MD (08/17/2018 10:30 AM) [id number]
[2018-08-17 10:50] VITALS: BP 120/65
--- NOTE | 2018-08-17 13:17 | RAD ---
CT of the chest without contrast, 08/17/2018: HISTORY: Lung mass Noncontrast scans were obtained and compared to a study from 06/23/2018. There is a persistent streaky opacity in the posterior superior aspect of the right lower lobe. There is a new 3.3 cm lesion lesion in the anterolateral aspect of the right lower lobe abutting the oblique fissure. It is of low density and contains an air-fluid level. An abscess is suspected. There are also new tree-in-bud type opacities are present in the right lower lobe compatible with bronchopneumonia. Patchy pulmonary consolidation has developed in the right upper lobe posterior laterally. Additionally there are multiple new tiny scattered nodular opacities in both lungs, some of which are cavitary in nature. For example a 9 mm thin-walled cavitary nodule is present laterally in the left lower lobe on image 22 of series #2. There is calcific plaquing of the thoracic aorta. Calcified mediastinal and hilar lymph nodes are present compatible with old granulomatous disease. An NG tube extends into the stomach with decompression of the stomach. Dilated small bowel loops are partially visualized the upper abdomen, as noted on the CT abdomen study of earlier today. IMPRESSION: 1. Worsening right lower lobe infiltrates with a new cavitary lesion suggesting a moderate sized abscess. 2. New right upper lobe infiltrates compatible with pneumonia. 3. New scattered tiny nodular opacities in both lungs, some of which are cavitary. The findings suggest septic emboli versus metastatic disease. PQRS Compliance Statement: One or more of the following individualized dose reduction techniques were utilized for this examination: 1. Automated exposure control 2. Adjustment of the mA and/or kV according to patient size 3. Use of iterative reconstruction technique Electronically signed by: Yuan Arboleda MD (08/17/2018 1:14 PM) [facility]
--- NOTE | 2018-08-17 13:33 | CONS ---
DATE OF CONSULTATION: ATTENDING PHYSICIAN: Dr. Donaldson. REASON FOR CONSULTATION: Abnormal chest x-ray and CT chest. HISTORY OF PRESENT ILLNESS: The patient is a 73-year-old female who has history of rectal cancer. She has multiple bouts of small-bowel obstruction and has been in hospital multiple times. She has an abnormal CT chest back in 03/2018. At that time, she had a large cystic lesion with an air fluid level in the superior segment of the right lower lobe with adjacent infiltrates. The patient subsequently had a bronchoscopy and cytology was negative. Cultures reportedly were negative as well. She was seen by my partner, Dr. Marcial. She now comes in with nausea, vomiting, failure to thrive and progressive weakness. She has an occasional cough. No fever, no chills reported. She is very cachectic. She underwent imaging study including initially a CT of the abdomen and pelvis. The patient had severe distention of the stomach and most of the small bowel, most compatible with distal small-bowel obstruction. There were some pockets of gas density in the left lower quadrant concerning for pneumoperitoneum. There was a subpleural nodule in the right lower lobe posteriorly measuring 9 mm. The patient had a chest x-ray, which was reviewed by me and it showed a rounded mass. As a result, she underwent CT of the other chest. This has not been reported yet, but I have reviewed CT chest. The patient has a cavitary air fluid containing mass in the superior segment of the right lower lobe with surrounding infiltrates. This overall has shrunk significantly since the March CAT scan. PAST MEDICAL HISTORY: History of rectal cancer. No significant history of tobacco use. PAST SURGICAL HISTORY: Cholecystectomy, hysterectomy, tonsillectomy, breast biopsy. ALLERGIES: CODEINE AND LATEX. SOCIAL : Does not smoke FH: Non contributary to lungs MEDICATIONS: Reviewed as listed in the MRAD including meropenem. REVIEW OF SYSTEMS: Twelve-point system review obtained. Pertinent positives discussed in my history of present illness, otherwise noncontributory. All systems that were negative were reviewed as well. PHYSICAL EXAMINATION: VITAL SIGNS: Reviewed. She is afebrile, pulse ox is 98-100% on room air. HEENT: Sclerae nonicteric. NECK: Supple. LUNGS: Diminished breath sounds. CARDIOVASCULAR: Regular rate and rhythm. ABDOMEN: Soft. EXTREMITIES: With no pitting edema. LABORATORY DATA: Reviewed. White cell count 2.7, hemoglobin 15.2 and platelets are 273. BUN and creatinine 32 and 0.7. Albumin 2.6. IMPRESSION: 1. Abnormal CT chest with a cavitary mass in the right chest, likely abscess. This has an air fluid level. This is considerably reduced in size compared to the 03/2018 CT chest and likely represents a slowly improving infectious etiology such as a lung abscess. However there is new pneumonia in RUL and tiny thin cavitary nodules in left lung. She has distended stomach and possibility of fistula cannot be ruled out. 2. Ongoing weakness, subjective weight loss, failure to thrive and now comes in with nausea, vomiting. These symptoms are likely related to a GI pathology including small-bowel obstruction and possible pneumoperitoneum. General Surgery is following. 3. No significant history of tobacco use. RECOMMENDATIONS: 1. At this point, I would continue to treat with present antibiotic, meropenem. 2. Would hold off any further pulmonary invasive testing such as bronchoscopy or CT-guided aspiration. Repeat CT chest in next month would be reasonable. will review old Bronch cultures 3. Continue supportive care. 4. Follow General Surgery's recommendations. 5. Consult Infectious Disease. 6. We will follow along with you. Discussed with RN. DEDE MCNULTY MD DR: FRANNIE/curtis JOB#: [id number] / [id number] CELI
--- NOTE | 2018-08-17 13:39 | PDOC2 ---
GI CONSULT Reason For Consult: SBO HPI: HPI: 73 y/o female who has been admitted earlier this year w/ SBO. Overall, has been feeling weak and "just not well" w/ decreased appetite ("I take a few bites and then I just don't want it") w/ weight loss. Yesterday developed vomiting and came to the ER. CT A/P showed severe distention of stomach and most of the small bowel (possible distal SBO w/ similar appearance on previous exam), pockets of gas in LLQ (?pneumoperitoneum), and subpleural nodule in the RLL. Surgery following, had NG placed. Pulm nodule has been noted on previous imaging (was smaller in size in June compared w/ CT in Mar) and she has also had past evaluation w/ bronchoscopy. Pulmonology is following and ID has been asked to see for lung abscess. Issues w/ appetite during past admissions - I think has declined PPN/TPN in the past. Did have SBS in 04/2018 showed high grade partial SBO. Surgery note indicates gastrograffin was therapeutic. H/o rectal cancer in 2009 s/p rad/chemo and LAR. Colonoscopy 03/29/14 (w/ Dr. Mckeon) showed evidence of previous colo-anal anastomosis and normal mucosa in the whole colon. EGD (same day) showed small hiatal hernia, normal esophagus, H. pylori negative gastritis, a sub-mucosal/extrinsic indentation or mass int he stomach with normal overlying mucosa, and normal duodenum. Follow-up CT failed to demonstrate gastric mass or metastatic disease. H/o GERD - improvement w/ Pepcid, reports bad reaction to past trial of PPI (increased pain and nausea). Long h/o irregular bowel habits/intermittent diarrhea - takes Imodium or Lotomil PRN. Additional issues w/ "gas" in the past improved w/ FODMAPs diet. No liver or pancreas history. No NSAIDs. S/p cholecystectomy (cholelithiasis, chronic cholecystitis) and TREMAYNE w/ Dr. Gary in 2018. IOC was normal. Takes ASA 81mg QD. PMH: PMH: rectal cancer, IBS, GERD, osteopenia, PSVT LAR, breast biopsies, cholecystectomy, left eyelid surgery, bunionectomy, tonsillectomy, hysterectomy, right hips surgery, TREMAYNE, bronchoscopy FH: Family History: Cancer (pancreatic) Social History: Smoke: Quit ALCOHOL: none Drugs: None ROS: GEN: Denies fevers, chills, sweats HEENT: Denies blurred vision, sore throat CV: Denies chest pain RESP: Denies shortness of air, cough GI: Per HPI : Denies hematuria, dysuria ENDO: +weight loss NEURO: Denies confusion, dizziness MSK: +weakness SKIN: Denies jaundice, pruritus Vitals: Vitals: Vital Signs Date Time Temp Pulse Resp B/P (MAP) Pulse Ox O2 Delivery O2 Flow Rate FiO2 08/17/18 10:50 97.5 85 16 120/65 (83) Room Air 97.5 08/17/18 09:25 100 Labs: Labs: Laboratory Tests Test 08/17/18 06:29 08/17/18 06:44 White Blood Count 2.7 x10^3/uL (4.0-11.0) Red Blood Count 5.10 x10^6/uL (3.50-5.40) Hemoglobin 15.2 g/dL (12.0-15.5) Hematocrit 45.3 % (36.0-47.0) Mean Corpuscular Volume 89 fL (79-100) Mean Corpuscular Hemoglobin 30 pg (25-35) Mean Corpuscular Hemoglobin Concent 34 g/dL (31-37) Red Cell Distribution Width 16.0 % (11.5-14.5) Platelet Count 273 x10^3/uL (140-400) Neutrophils (%) (Auto) 83 % (31-73) Lymphocytes (%) (Auto) 11 % (24-48) Monocytes (%) (Auto) 5 % (0-9) Eosinophils (%) (Auto) 0 % (0-3) Basophils (%) (Auto) 0 % (0-3) Neutrophils # (Auto) 2.3 x10^3uL (1.8-7.7) Lymphocytes # (Auto) 0.3 x10^3/uL (1.0-4.8) Monocytes # (Auto) 0.1 x10^3/uL (0.0-1.1) Eosinophils # (Auto) 0.0 x10^3/uL (0.0-0.7) Basophils # (Auto) 0.0 x10^3/uL (0.0-0.2) Segmented Neutrophils % 46 % (35-66) Band Neutrophils % 41 % (0-9) Lymphocytes % 10 % (24-48) Monocytes % 3 % (0-10) Platelet Estimate Adequate (ADEQUATE) Large Platelets Few Anisocytosis Present Prothrombin Time 17.0 SEC (11.7-14.0) Prothromb Time International Ratio 1.4 (0.8-1.1) Sodium Level 137 mmol/L (136-145) Potassium Level 3.2 mmol/L (3.5-5.1) Chloride Level 100 mmol/L (98-107) Carbon Dioxide Level 20 mmol/L (21-32) Anion Gap 17 (6-14) Blood Urea Nitrogen 32 mg/dL (7-20) Creatinine 0.7 mg/dL (0.6-1.0) Estimated GFR (Cockcroft-Gault) 82.3 BUN/Creatinine Ratio 46 (6-20) Glucose Level 66 mg/dL (70-99) Calcium Level 7.8 mg/dL (8.5-10.1) Magnesium Level 1.4 mg/dL (1.8-2.4) Total Bilirubin 0.4 mg/dL (0.2-1.0) Aspartate Amino Transf (AST/SGOT) 50 U/L (15-37) Alanine Aminotransferase (ALT/SGPT) 85 U/L (14-59) Alkaline Phosphatase 249 U/L (46-116) Troponin I Quantitative < 0.017 ng/mL (0.000-0.055) Total Protein 6.1 g/dL (6.4-8.2) Albumin 2.6 g/dL (3.4-5.0) Albumin/Globulin Ratio 0.7 (1.0-1.7) Lipase 49 U/L (73-393) Urine Collection Type Unknown Urine Color Yellow Urine Clarity Clear Urine pH 5.5 Urine Specific [place] 1.025 Urine Protein Negative mg/dL (NEG-TRACE) Urine Glucose (UA) Negative mg/dL (NEG) Urine Ketones (Stick) Negative mg/dL (NEG) Urine Blood Negative (NEG) Urine Nitrite Negative (NEG) Urine Bilirubin Small (NEG) Urine Urobilinogen Dipstick 0.2 mg/dL (0.2 mg/dL) Urine Leukocyte Esterase Negative (NEG) Urine RBC 0 /HPF (0-2) Urine WBC 0 /HPF (0-4) Urine Squamous Epithelial Cells None /LPF Urine Transitional Epithelial Cells Few /LPF Urine Bacteria 0 /HPF (0-FEW) Urine Mucus Slight /LPF Allergies: Coded Allergies: latex (Verified Allergy, Intermediate, EYE SWELLING; RASH, 03/08/18) codeine (Verified Adverse Reaction, Intermediate, Makes her feel uncomfortable, 03/08/18) Medications: Current Medications Medications (Trade) Dose Ordered Sig/Josefina Route PRN Reason Start Time Stop Time Status Last Admin Dose Admin Sodium Chloride 1,000 ml @ 100 mls/hr Q10H IV 08/17/18 06:30 08/17/18 16:29 08/17/18 06:55 Ondansetron HCl (Zofran) 4 mg 1X ONCE IV 08/17/18 06:30 08/17/18 06:31 DC 08/17/18 06:55 Iohexol (Omnipaque 240 Mg/ml) 30 ml 1X ONCE PO 08/17/18 07:15 08/17/18 07:16 DC 08/17/18 07:15 Iohexol (Omnipaque 300 Mg/ml) 75 ml 1X ONCE IV 08/17/18 07:15 08/17/18 07:16 DC 08/17/18 08:11 Sodium Chloride 1,000 ml @ 1,000 mls/hr 1X ONCE IV 08/17/18 07:45 08/17/18 08:44 DC 08/17/18 07:45 Potassium Chloride/Water 100 ml @ 100 mls/hr Q1H IV 08/17/18 07:45 08/17/18 09:44 DC 08/17/18 09:23 Meropenem 500 mg/ Sodium Chloride 50 ml @ 100 mls/hr 1X ONCE IV 08/17/18 09:30 08/17/18 09:59 DC 08/17/18 10:53 Imaging: Imaging: CXR IMPRESSION: Increasing streaky right perihilar infiltrate and a rounded mass which appears new. CT scanning is suggested for further evaluation. CT A/P IMPRESSION: 1. Severe distention of stomach and most of the small bowel, most compatible with a distal small bowel obstruction. A somewhat similar appearance was seen on the previous exam. 2. There are some pockets of gas density in the left lower quadrant and pelvis, concerning for pneumoperitoneum. Source of this gas is uncertain but is concerning for bowel perforation. 3. There is a subpleural nodule in the right lower lobe posteriorly measuring 9 mm. This could just represent some focal consolidation but a pulmonary nodule is not excludable, raising concern for metastatic disease of the chest. Recommend f ollow-up CT chest scan in 3 months. KUB IMPRESSION: NG tube tip is seen within the proximal body of the stomach. Small bowel obstruction. Chest CT IMPRESSION: 1. Worsening right lower lobe infiltrates with a new cavitary lesion suggesting a moderate sized abscess. 2. New right upper lobe infiltrates compatible with pneumonia. 3. New scattered tiny nodular opacities in both lungs, some of which are cavitary. The findings suggest septic emboli versus metastatic disease. PE: GEN: NAD HEENT: Atraumatic, keeps eyes closed, NG w/ brown material LUNGS: CTAB HEART: RRR ABD: quiet, soft, non-tender EXTREMITY: BLE pitting edema SKIN: pale, BLE cool, great toes purple-yobani NEURO/PSYCH: A & O 3 A/P: A/P: Vomiting, weakness, weight loss Recurrent SBO, abnormal CT w/ ?pneumoperitoneum ?lung abscess Leukopenia, hypokalemia, hypomagnesemia, elevated LFTs, mild coagulopathy, hypoalbuminemia GERD, hiatal hernia H/o rectal cancer - last colonoscopy 03/2014 H/o irregular bowel habits/IBS S/p cholecystectomy -- Continue per surgery. Will add IV Pepcid. Follow LFTs - unremarkable liver on CT and previous US. Defer BLE pitting edema to primary. MARK UP August 17, 2018 13:39
[2018-08-17] MEDS: MEROPENEM 500 MG in IV NORMAL SALINE 50ML 50 ML IV SCH ×2 (13:40→20:58)
[2018-08-17 15:00] VITALS: BP 100/47
--- NOTE | 2018-08-17 15:00 | NUR ---
Wound Care: Consult to eval and treat pressure ulcer to coccyx present on admission. Picture and measurements (1x1.5x0.1cm) present in chart, see detailed assessment. Cleansed and applied hydrocolloid and foam dressing. No other open areas noted on head to toe assessment. P500 bed ordered, pt declined to be moved into it at this time. plantar feet mottled and cold. Plan to follow up 08/24/18
--- NOTE | 2018-08-17 15:10 | PDOC ---
Provider Note Provider Note SURG second opinion Asked to see Ms Michel. She was seen, interviewed and examined earlier this afternoon. Labs and CT reviewed. She has large volume of NG output and states that she feels better after coming to the hospital.Abdominal exam does not reveal and TTP. Would not recommend surgical intervention at present given the scenario. She is a poor surgical candidate, and currently has a very benign exam. Would recommend serial exams, labs and expectant treatment for now. Thanks for asking me to see this nice lady. JAX CHOI MD August 17, 2018 15:10
[2018-08-17 19:35] VITALS: BP 104/57
[2018-08-17] MEDS: AMINO AC 3%/ELECTROLYTE/GLYCER 1,000 ML IV SCH (20:57)
[2018-08-17 23:35] VITALS: BP 111/66
[2018-08-18 03:35] VITALS: BP 114/58
[2018-08-18] MEDS: MEROPENEM 500 MG in IV NORMAL SALINE 50ML 50 ML IV SCH ×3 (06:06→22:09)
[2018-08-18 06:44] LABS: BASO % 0 % (0-3); EOS % 0 % (0-3); HEMATOCRIT 39.3 % (36.0-47.0); HEMOGLOBIN 13.3 g/dL (12.0-15.5); LYMPH # 0.1 x10^3/uL (1.0-4.8); LYMPH % 6 % (24-48); MEAN CORPUSCULAR HEMOGLOBIN 30 pg (25-35); MEAN CORPUSCULAR HGB CONC 34 g/dL (31-37); MEAN CORPUSCULAR VOLUME 89 fL (79-100); MONO # 0.1 x10^3/uL (0.0-1.1); MONO % 5 % (0-9); NEUT % 89 % (31-73); PLATELET COUNT 220 x10^3/uL (140-400); RED BLOOD COUNT 4.41 x10^6/uL (3.50-5.40); WHITE BLOOD COUNT 2.2 x10^3/uL (4.0-11.0)
[2018-08-18 06:55] LABS: CALCIUM 6.7 mg/dL (8.5-10.1); CREATININE 0.6 mg/dL (0.6-1.0); GFR 98.3
[2018-08-18 07:00] VITALS: BP 112/55
[2018-08-18 07:02] LABS: POTASSIUM 2.6 mmol/L (3.5-5.1)
--- NOTE | 2018-08-18 07:15 | NUR ---
Received call from [facility] [place] in lab. K 2.6. Called to Dr Tran and orders received.
[2018-08-18] MEDS ORDERED: POTASSIUM CL 40MEQ IN 0.9%NACL 1,000 ML IV ONE (07:45)
[2018-08-18] MEDS: AMINO AC 3%/ELECTROLYTE/GLYCER 1,000 ML IV SCH ×2 (08:45→21:15)
--- NOTE | 2018-08-18 08:51 | NUR ---
PICC Pre-Insertion Note Allergies and reactions codeine, latex INR 1.4 BUN 32 Cr 0.6 Platelets 220 Blood culture done no blood culture results n/a Order Verified yes Consent signed yes Previous PICC placement yes Past Medical/Surgical history and current diagnosis reviewed yes Patient Medical /Surgical History Related to PICC line placement Cancer Past central line or venous access device placement Special considerations for PICC line placement None PICC placement indication Total Parenteral Nutrition (TPN) name of PICC Nurse Maureen Juan RN Addendum: 08/18/18 at 1007 by ARNOLDO UJAN RN Amended: Links added.
--- NOTE | 2018-08-18 08:58 | HP ---
ADMIT DATE: 08/17/2018 CHIEF COMPLAINT: Nausea, vomiting. HISTORY OF PRESENT ILLNESS AND HOSPITAL COURSE: The patient is a 73-year-old female with recurrent history of nausea, vomiting, diarrhea and weight loss with suspected small-bowel obstruction. She has had at least two hospitalizations in the last year for similar symptoms, requiring decompression, but not surgery. She states that for the last 3-4 weeks, she has been having increasing nausea and abdominal distention. Twenty four hours prior to admission, she began having nausea, vomiting and came to the Emergency Room. She was found to be emaciated with evidence of dehydration and severe protein malnutrition. Due to severity of symptoms, she was admitted for NG tube decompression, GI and Surgery consultation, IV fluids and IV nutrition, and continued evaluation. PAST MEDICAL HISTORY: Significant for: 1. Recurrent partial small bowel obstruction/ileus. 2. History of rectal CA remotely, status post radiation and chemotherapy. 3. Pathologic hip fracture of right hip. 4. Osteopenia. 5. Hypertension. 6. Irritable bowel syndrome. 7. Hyperlipidemia. 8. Polio as a child. 9. Severe protein malnutrition. 10. Chronic pulmonary abscess. 11. History of SVT/AFib. FAMILY HISTORY: Significant for mother who of pancreatic cancer, a father who of pancreatic cancer and heart disease. Maternal grandfather and paternal grandfather both with heart disease. SOCIAL HISTORY: The patient is a former smoker, but has not smoked for greater than 10 years. The patient denies alcohol. She lives with her . She has excellent social support. ALLERGIES: The patient has no allergies except to LATEX. PAST SURGICAL HISTORY: 1. Includes rectal CA with resection, colostomy and subsequent takedown. 2. Tonsillectomy and adenoidectomy. 3. Eyelid surgery. 4. Post-delivery cervical laceration. 5. Breast biopsy. 6. Bunion surgery. 7. Laparoscopic cholecystectomy in 02/2018. REVIEW OF SYSTEMS: The patient has been having increasing abdominal bloating, approximately 12-pound weight loss in the last month, nausea, vomiting, intermittent diarrhea less than 5 per day. Denies cough, fever, chills, chest pain, shortness of breath. PHYSICAL EXAMINATION: GENERAL: This is a cachectic-appearing female who is alert and oriented x 3. HEENT: Benign except for dry mucous membranes. NECK: Supple. CARDIAC: Regular rate and rhythm. LUNGS: Clear. ABDOMEN: Soft and nontender with positive bowel sounds after NG tube decompression. The patient does have NG tube in place. EXTREMITIES: Showed 3+ pitting edema. NEUROLOGIC: Showed no unilateral findings. ASSESSMENT: 1. Small-bowel obstruction. 2. Severe protein malnutrition. 3. Leukopenia. 4. Hyponatremia. 5. Hypomagnesemia. PLAN: To proceed with NG tube decompression, TPN. Surgery and GI consultation, and supportive care. ALLYN PATE MD DR: FENG/curtis JOB#: [id number] / [id number]
[2018-08-18] MEDS ORDERED: MAGNESIUM SULFATE 2GM 50 ML IV ONE (09:00)
--- NOTE | 2018-08-18 09:05 | PDOC ---
[facility] [employer] REQUIREMENTS PLANNER 08/18/18 0905: SURGICAL PROGRESS NOTE Subjective resting no abdominal pain no flatus Vital Signs Vital Signs Date Time Temp Pulse Resp B/P (MAP) Pulse Ox O2 Delivery O2 Flow Rate FiO2 08/18/18 07:00 96.8 82 14 112/55 (74) 98 Room Air 96.8 I&O Intake and Output 08/18/18 07:00 Intake Total 100 ml Output Total 1500 ml Balance -1400 ml Intake Oral 0 ml IV Total 100 ml Output Drainage Total 1500 ml # Voids 1 General: Cooperative, Other (frail appearing ) HEENT: Other (NG present, biliuos drainage ) Abdomen: Soft, No tenderness Labs Laboratory Tests Test 08/17/18 06:29 08/17/18 06:44 08/18/18 05:36 White Blood Count 2.7 x10^3/uL (4.0-11.0) 2.2 x10^3/uL (4.0-11.0) Red Blood Count 5.10 x10^6/uL (3.50-5.40) 4.41 x10^6/uL (3.50-5.40) Hemoglobin 15.2 g/dL (12.0-15.5) 13.3 g/dL (12.0-15.5) Hematocrit 45.3 % (36.0-47.0) 39.3 % (36.0-47.0) Mean Corpuscular Volume 89 fL (79-100) 89 fL (79-100) Mean Corpuscular Hemoglobin 30 pg (25-35) 30 pg (25-35) Mean Corpuscular Hemoglobin Concent 34 g/dL (31-37) 34 g/dL (31-37) Red Cell Distribution Width 16.0 % (11.5-14.5) 16.0 % (11.5-14.5) Platelet Count 273 x10^3/uL (140-400) 220 x10^3/uL (140-400) Neutrophils (%) (Auto) 83 % (31-73) 89 % (31-73) Lymphocytes (%) (Auto) 11 % (24-48) 6 % (24-48) Monocytes (%) (Auto) 5 % (0-9) 5 % (0-9) Eosinophils (%) (Auto) 0 % (0-3) 0 % (0-3) Basophils (%) (Auto) 0 % (0-3) 0 % (0-3) Neutrophils # (Auto) 2.3 x10^3uL (1.8-7.7) 2.0 x10^3uL (1.8-7.7) Lymphocytes # (Auto) 0.3 x10^3/uL (1.0-4.8) 0.1 x10^3/uL (1.0-4.8) Monocytes # (Auto) 0.1 x10^3/uL (0.0-1.1) 0.1 x10^3/uL (0.0-1.1) Eosinophils # (Auto) 0.0 x10^3/uL (0.0-0.7) 0.0 x10^3/uL (0.0-0.7) Basophils # (Auto) 0.0 x10^3/uL (0.0-0.2) 0.0 x10^3/uL (0.0-0.2) Segmented Neutrophils % 46 % (35-66) Band Neutrophils % 41 % (0-9) Lymphocytes % 10 % (24-48) Monocytes % 3 % (0-10) Platelet Estimate Adequate (ADEQUATE) Large Platelets Few Anisocytosis Present Prothrombin Time 17.0 SEC (11.7-14.0) Prothromb Time International Ratio 1.4 (0.8-1.1) Sodium Level 137 mmol/L (136-145) 136 mmol/L (136-145) Potassium Level 3.2 mmol/L (3.5-5.1) 2.6 mmol/L (3.5-5.1) Chloride Level 100 mmol/L (98-107) 101 mmol/L (98-107) Carbon Dioxide Level 20 mmol/L (21-32) 20 mmol/L (21-32) Anion Gap 17 (6-14) 15 (6-14) Blood Urea Nitrogen 32 mg/dL (7-20) 32 mg/dL (7-20) Creatinine 0.7 mg/dL (0.6-1.0) 0.6 mg/dL (0.6-1.0) Estimated GFR (Cockcroft-Gault) 82.3 98.3 BUN/Creatinine Ratio 46 (6-20) Glucose Level 66 mg/dL (70-99) 85 mg/dL (70-99) Calcium Level 7.8 mg/dL (8.5-10.1) 6.7 mg/dL (8.5-10.1) Magnesium Level 1.4 mg/dL (1.8-2.4) Total Bilirubin 0.4 mg/dL (0.2-1.0) Aspartate Amino Transf (AST/SGOT) 50 U/L (15-37) Alanine Aminotransferase (ALT/SGPT) 85 U/L (14-59) Alkaline Phosphatase 249 U/L (46-116) Troponin I Quantitative < 0.017 ng/mL (0.000-0.055) Total Protein 6.1 g/dL (6.4-8.2) Albumin 2.6 g/dL (3.4-5.0) Albumin/Globulin Ratio 0.7 (1.0-1.7) Lipase 49 U/L (73-393) Procalcitonin 0.17 ng/mL (0.00-0.10) Urine Collection Type Unknown Urine Color Yellow Urine Clarity Clear Urine pH 5.5 Urine Specific [place] 1.025 Urine Protein Negative mg/dL (NEG-TRACE) Urine Glucose (UA) Negative mg/dL (NEG) Urine Ketones (Stick) Negative mg/dL (NEG) Urine Blood Negative (NEG) Urine Nitrite Negative (NEG) Urine Bilirubin Small (NEG) Urine Urobilinogen Dipstick 0.2 mg/dL (0.2 mg/dL) Urine Leukocyte Esterase Negative (NEG) Urine RBC 0 /HPF (0-2) Urine WBC 0 /HPF (0-4) Urine Squamous Epithelial Cells None /LPF Urine Transitional Epithelial Cells Few /LPF Urine Bacteria 0 /HPF (0-FEW) Urine Mucus Slight /LPF Laboratory Tests Test 08/18/18 05:36 White Blood Count 2.2 x10^3/uL (4.0-11.0) Red Blood Count 4.41 x10^6/uL (3.50-5.40) Hemoglobin 13.3 g/dL (12.0-15.5) Hematocrit 39.3 % (36.0-47.0) Mean Corpuscular Volume 89 fL (79-100) Mean Corpuscular Hemoglobin 30 pg (25-35) Mean Corpuscular Hemoglobin Concent 34 g/dL (31-37) Red Cell Distribution Width 16.0 % (11.5-14.5) Platelet Count 220 x10^3/uL (140-400) Neutrophils (%) (Auto) 89 % (31-73) Lymphocytes (%) (Auto) 6 % (24-48) Monocytes (%) (Auto) 5 % (0-9) Eosinophils (%) (Auto) 0 % (0-3) Basophils (%) (Auto) 0 % (0-3) Neutrophils # (Auto) 2.0 x10^3uL (1.8-7.7) Lymphocytes # (Auto) 0.1 x10^3/uL (1.0-4.8) Monocytes # (Auto) 0.1 x10^3/uL (0.0-1.1) Eosinophils # (Auto) 0.0 x10^3/uL (0.0-0.7) Basophils # (Auto) 0.0 x10^3/uL (0.0-0.2) Sodium Level 136 mmol/L (136-145) Potassium Level 2.6 mmol/L (3.5-5.1) Chloride Level 101 mmol/L (98-107) Carbon Dioxide Level 20 mmol/L (21-32) Anion Gap 15 (6-14) Blood Urea Nitrogen 32 mg/dL (7-20) Creatinine 0.6 mg/dL (0.6-1.0) Estimated GFR (Cockcroft-Gault) 98.3 Glucose Level 85 mg/dL (70-99) Calcium Level 6.7 mg/dL (8.5-10.1) Problem List Problems Medical Problems: (1) Pneumoperitoneum Status: Acute Assessment/Plan continue NG decompression will check abdominal films in AM pulm recs reviewed EVANS PERERA MD 08/21/18 5130: SURGICAL PROGRESS NOTE Assessment/Plan Agree with above [employer] RE[employer]IREMENTS PL[employer]NER August 18, 2018 09:05 EVANS PERERA MD Aug 21, 2018 07:30
--- NOTE | 2018-08-18 09:40 | PDOC ---
Subjective: Subjective: Feeling better, no flatus, no pain. Objective: Objective: Reviewed w/ RN - ~1300cc out of NG last night, on PPN. Vital Signs: Vital Signs Date Time Temp Pulse Resp B/P (MAP) Pulse Ox O2 Delivery O2 Flow Rate FiO2 08/18/18 07:00 96.8 82 14 112/55 (74) 98 Room Air 96.8 Labs: Laboratory Tests Test 08/18/18 05:36 White Blood Count 2.2 x10^3/uL Red Blood Count 4.41 x10^6/uL Hemoglobin 13.3 g/dL Hematocrit 39.3 % Mean Corpuscular Volume 89 fL Mean Corpuscular Hemoglobin 30 pg Mean Corpuscular Hemoglobin Concent 34 g/dL Red Cell Distribution Width 16.0 % Platelet Count 220 x10^3/uL Neutrophils (%) (Auto) 89 % Lymphocytes (%) (Auto) 6 % Monocytes (%) (Auto) 5 % Eosinophils (%) (Auto) 0 % Basophils (%) (Auto) 0 % Neutrophils # (Auto) 2.0 x10^3uL Lymphocytes # (Auto) 0.1 x10^3/uL Monocytes # (Auto) 0.1 x10^3/uL Eosinophils # (Auto) 0.0 x10^3/uL Basophils # (Auto) 0.0 x10^3/uL Sodium Level 136 mmol/L Potassium Level 2.6 mmol/L Chloride Level 101 mmol/L Carbon Dioxide Level 20 mmol/L Anion Gap 15 Blood Urea Nitrogen 32 mg/dL Creatinine 0.6 mg/dL Estimated GFR (Cockcroft-Gault) 98.3 Glucose Level 85 mg/dL Calcium Level 6.7 mg/dL Imaging: Chest CT IMPRESSION: 1. Worsening right lower lobe infiltrates with a new cavitary lesion suggesting a moderate sized abscess. 2. New right upper lobe infiltrates compatible with pneumonia. 3. New scattered tiny nodular opacities in both lungs, some of which are cavitary. The findings suggest septic emboli versus metastatic disease. PE: GEN: NAD - staff using vein finder LUNGS: NC HEART: RRR ABD: quiet S/ND/NT, NG canister w/ thick brown material NEURO/PSYCH: A & O 3 A/P: Recurrent SBO, abnormal CT w/ ?pneumoperitoneum Abnormal chest imaging - worsening RLL infiltrates with a new cavitary lesion suggestive of abscess, new RUL pneumonia, ?septic emboli Hypokalemia H/o GERD, hiatal hernia, rectal cancer, IBS -- Await interval abd imaging. Recheck LFTs. Continue per pulm, ID, and surgery. ?TPN Returned to see later today after d/w RNs and Dr. Fischer - some concern for bloody NG output, wondering about need for EGD w/ lung abscess and concern for aspiration. IR has been asked to place PICC. NG output is brown - I did not appreciate any red or black material during my exam. Family present w/ questions - want to know what can be done GI-molina to prevent this from happening again. They also have questions about how to help her eat and gain weight. We discussed Boost, Ensure, etc. - she says she cannot tolerate these or any similar products with milk, coconut milk, or pea powder due to severe diarrhea. Like yesterday, she describes decreased appetite - "I just don't want it." She has many chronic GI issues (IBS, GERD, h/o rectal cancer) but not sure these issues are contributing to her current problem. Will review all with Dr. 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 MARK UP August 18, 2018 09:40
--- NOTE | 2018-08-18 09:50 | NUR ---
PICC Insertion- Unsuccessful- Note to follow Procedure: Following complete explanation of the PICC procedure including the indications, risks, and potential complications, informed consent was obtained.The possibility for infection was discussed along with signs, symptoms, and prevention. All the questions were answered. Written and verbal patient education was provided. Hand hygiene performed. Standardized central line checklist was utilized. The patient was placed in the supine position, the arm was prepped with chlorhexidine and patient draped with maximum sterile barrier. 4 mL 1% lidocaine was infiltrated into the skin to provide local anesthesia. A thorough assessment of Right upper extremity completed. Using real-time ultrasound guidance and standardized micro puncture set, the Brachial vein was punctured and a peel away sheath was placed- however catheter would not advance. Multiple sticks were required to access vein. After catheter would not advance; intervention was discontinued and patient referred to IR for placement. Complications: Unsuccessful catheter advancement- patient referred to interventional radiology for placement.
--- NOTE | 2018-08-18 10:30 | PDOC ---
Infectious Disease Note Vital Signs: Vital Signs Vital Signs Date Time Temp Pulse Resp B/P (MAP) Pulse Ox O2 Delivery O2 Flow Rate FiO2 08/18/18 07:00 96.8 82 14 112/55 (74) 98 Room Air 96.8 Medications: Inpatient Meds: Current Medications Medications (Trade) Dose Ordered Sig/Jsoefina Start Time Stop Time Status Last Admin Dose Admin Amino Acids/ Glycerin/ Electrolytes 1,000 ml @ 80 mls/hr [id number] 08/17/18 20:15 08/17/18 20:57 80 MLS/HR Ertapenem 50 ml @ 100 mls/hr 1X ONCE 08/17/18 09:15 08/17/18 09:44 UNV Famotidine (Pepcid Vial) 20 mg QHS 08/18/18 21:00 Info (CONTRAST GIVEN -- Rx MONITORING) 1 each PRN DAILY PRN 08/17/18 07:15 08/19/18 07:14 Iohexol (Omnipaque 240 Mg/ml) 30 ml 1X ONCE 08/17/18 07:15 08/17/18 07:16 DC 08/17/18 07:15 30 ML Iohexol (Omnipaque 300 Mg/ml) 75 ml 1X ONCE 08/17/18 07:15 08/17/18 07:16 DC 08/17/18 08:11 75 ML Magnesium Sulfate 50 ml @ 25 mls/hr 1X ONCE 08/18/18 09:00 08/18/18 10:59 Magnesium Sulfate/ Dextrose 100 ml @ 100 mls/hr 1X ONCE 08/17/18 07:45 08/17/18 08:44 DC 08/17/18 14:55 100 MLS/HR Meropenem 500 mg/ Sodium Chloride 50 ml @ 100 mls/hr Q8HRS 08/17/18 14:00 08/18/18 06:06 100 MLS/HR Morphine Sulfate (Morphine Sulfate) 4 mg PRN Q2HR PRN 08/17/18 10:00 08/18/18 09:59 DC Ondansetron HCl (Zofran) 4 mg PRN Q8HRS PRN 08/17/18 10:00 08/18/18 09:59 DC Potassium Chloride/Sodium Chloride 1,000 ml @ 75 mls/hr 1X ONCE 08/18/18 07:45 08/18/18 21:04 Potassium Chloride/Water 100 ml @ 100 mls/hr Q1H 08/17/18 07:45 08/17/18 09:44 DC 08/17/18 09:23 100 MLS/HR Sodium Chloride 1,000 ml @ 1,000 mls/hr 1X ONCE 08/17/18 07:45 08/17/18 08:44 DC 08/17/18 07:45 1,000 MLS/HR Labs: Lab Laboratory Tests Test 08/18/18 05:36 White Blood Count 2.2 x10^3/uL (4.0-11.0) Red Blood Count 4.41 x10^6/uL (3.50-5.40) Hemoglobin 13.3 g/dL (12.0-15.5) Hematocrit 39.3 % (36.0-47.0) Mean Corpuscular Volume 89 fL (79-100) Mean Corpuscular Hemoglobin 30 pg (25-35) Mean Corpuscular Hemoglobin Concent 34 g/dL (31-37) Red Cell Distribution Width 16.0 % (11.5-14.5) Platelet Count 220 x10^3/uL (140-400) Neutrophils (%) (Auto) 89 % (31-73) Lymphocytes (%) (Auto) 6 % (24-48) Monocytes (%) (Auto) 5 % (0-9) Eosinophils (%) (Auto) 0 % (0-3) Basophils (%) (Auto) 0 % (0-3) Neutrophils # (Auto) 2.0 x10^3uL (1.8-7.7) Lymphocytes # (Auto) 0.1 x10^3/uL (1.0-4.8) Monocytes # (Auto) 0.1 x10^3/uL (0.0-1.1) Eosinophils # (Auto) 0.0 x10^3/uL (0.0-0.7) Basophils # (Auto) 0.0 x10^3/uL (0.0-0.2) Sodium Level 136 mmol/L (136-145) Potassium Level 2.6 mmol/L (3.5-5.1) Chloride Level 101 mmol/L (98-107) Carbon Dioxide Level 20 mmol/L (21-32) Anion Gap 15 (6-14) Blood Urea Nitrogen 32 mg/dL (7-20) Creatinine 0.6 mg/dL (0.6-1.0) Estimated GFR (Cockcroft-Gault) 98.3 Glucose Level 85 mg/dL (70-99) Calcium Level 6.7 mg/dL (8.5-10.1) Objective: Assessment: Lung mass, likely pulmonary abscess Multiple pulmonary nodules 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 PneumoPeritoneum Leucopenia IBS Electrolyte abnormality Plan: Plan of Care Continue Merrem Follow-up cultures and susceptibilities Follow up labs in the a.m. Supportive care Thank you [phone] JJ OSORIO MD August 18, 2018 10:30
--- NOTE | 2018-08-18 10:32 | NUR ---
SW following for discharge planning. Chart reviewed. Pt is from home with spouse. PT/OT pending. Pt had NG tube and possible PICC line placement for TPN. No discharge recommendations noted at this time. SW will continue to follow for pending discharge needs.
[2018-08-18 11:00] VITALS: BP 97/49
--- NOTE | 2018-08-18 12:40 | PDOC ---
PULMONARY PROGRESS NOTES Subjective bloody NG OUTPUT Vitals Vital Signs Date Time Temp Pulse Resp B/P (MAP) Pulse Ox O2 Delivery O2 Flow Rate FiO2 08/18/18 11:00 96.0 61 16 97/49 (65) 96 Room Air 96.0 General: Alert, No acute distress Lungs: Clear Cardiovascular: S1, S2 Abdomen: Soft, Non-tender Extremities: No Edema Labs Laboratory Tests Test 08/17/18 06:29 08/17/18 06:44 08/18/18 05:36 White Blood Count 2.7 x10^3/uL (4.0-11.0) 2.2 x10^3/uL (4.0-11.0) Red Blood Count 5.10 x10^6/uL (3.50-5.40) 4.41 x10^6/uL (3.50-5.40) Hemoglobin 15.2 g/dL (12.0-15.5) 13.3 g/dL (12.0-15.5) Hematocrit 45.3 % (36.0-47.0) 39.3 % (36.0-47.0) Mean Corpuscular Volume 89 fL (79-100) 89 fL (79-100) Mean Corpuscular Hemoglobin 30 pg (25-35) 30 pg (25-35) Mean Corpuscular Hemoglobin Concent 34 g/dL (31-37) 34 g/dL (31-37) Red Cell Distribution Width 16.0 % (11.5-14.5) 16.0 % (11.5-14.5) Platelet Count 273 x10^3/uL (140-400) 220 x10^3/uL (140-400) Neutrophils (%) (Auto) 83 % (31-73) 89 % (31-73) Lymphocytes (%) (Auto) 11 % (24-48) 6 % (24-48) Monocytes (%) (Auto) 5 % (0-9) 5 % (0-9) Eosinophils (%) (Auto) 0 % (0-3) 0 % (0-3) Basophils (%) (Auto) 0 % (0-3) 0 % (0-3) Neutrophils # (Auto) 2.3 x10^3uL (1.8-7.7) 2.0 x10^3uL (1.8-7.7) Lymphocytes # (Auto) 0.3 x10^3/uL (1.0-4.8) 0.1 x10^3/uL (1.0-4.8) Monocytes # (Auto) 0.1 x10^3/uL (0.0-1.1) 0.1 x10^3/uL (0.0-1.1) Eosinophils # (Auto) 0.0 x10^3/uL (0.0-0.7) 0.0 x10^3/uL (0.0-0.7) Basophils # (Auto) 0.0 x10^3/uL (0.0-0.2) 0.0 x10^3/uL (0.0-0.2) Segmented Neutrophils % 46 % (35-66) Band Neutrophils % 41 % (0-9) Lymphocytes % 10 % (24-48) Monocytes % 3 % (0-10) Platelet Estimate Adequate (ADEQUATE) Large Platelets Few Anisocytosis Present Prothrombin Time 17.0 SEC (11.7-14.0) Prothromb Time International Ratio 1.4 (0.8-1.1) Sodium Level 137 mmol/L (136-145) 136 mmol/L (136-145) Potassium Level 3.2 mmol/L (3.5-5.1) 2.6 mmol/L (3.5-5.1) Chloride Level 100 mmol/L (98-107) 101 mmol/L (98-107) Carbon Dioxide Level 20 mmol/L (21-32) 20 mmol/L (21-32) Anion Gap 17 (6-14) 15 (6-14) Blood Urea Nitrogen 32 mg/dL (7-20) 32 mg/dL (7-20) Creatinine 0.7 mg/dL (0.6-1.0) 0.6 mg/dL (0.6-1.0) Estimated GFR (Cockcroft-Gault) 82.3 98.3 BUN/Creatinine Ratio 46 (6-20) Glucose Level 66 mg/dL (70-99) 85 mg/dL (70-99) Calcium Level 7.8 mg/dL (8.5-10.1) 6.7 mg/dL (8.5-10.1) Magnesium Level 1.4 mg/dL (1.8-2.4) Total Bilirubin 0.4 mg/dL (0.2-1.0) Aspartate Amino Transf (AST/SGOT) 50 U/L (15-37) Alanine Aminotransferase (ALT/SGPT) 85 U/L (14-59) Alkaline Phosphatase 249 U/L (46-116) Troponin I Quantitative < 0.017 ng/mL (0.000-0.055) Total Protein 6.1 g/dL (6.4-8.2) Albumin 2.6 g/dL (3.4-5.0) Albumin/Globulin Ratio 0.7 (1.0-1.7) Lipase 49 U/L (73-393) Procalcitonin 0.17 ng/mL (0.00-0.10) Urine Collection Type Unknown Urine Color Yellow Urine Clarity Clear Urine pH 5.5 Urine Specific [place] 1.025 Urine Protein Negative mg/dL (NEG-TRACE) Urine Glucose (UA) Negative mg/dL (NEG) Urine Ketones (Stick) Negative mg/dL (NEG) Urine Blood Negative (NEG) Urine Nitrite Negative (NEG) Urine Bilirubin Small (NEG) Urine Urobilinogen Dipstick 0.2 mg/dL (0.2 mg/dL) Urine Leukocyte Esterase Negative (NEG) Urine RBC 0 /HPF (0-2) Urine WBC 0 /HPF (0-4) Urine Squamous Epithelial Cells None /LPF Urine Transitional Epithelial Cells Few /LPF Urine Bacteria 0 /HPF (0-FEW) Urine Mucus Slight /LPF Laboratory Tests Test 08/18/18 05:36 White Blood Count 2.2 x10^3/uL (4.0-11.0) Red Blood Count 4.41 x10^6/uL (3.50-5.40) Hemoglobin 13.3 g/dL (12.0-15.5) Hematocrit 39.3 % (36.0-47.0) Mean Corpuscular Volume 89 fL (79-100) Mean Corpuscular Hemoglobin 30 pg (25-35) Mean Corpuscular Hemoglobin Concent 34 g/dL (31-37) Red Cell Distribution Width 16.0 % (11.5-14.5) Platelet Count 220 x10^3/uL (140-400) Neutrophils (%) (Auto) 89 % (31-73) Lymphocytes (%) (Auto) 6 % (24-48) Monocytes (%) (Auto) 5 % (0-9) Eosinophils (%) (Auto) 0 % (0-3) Basophils (%) (Auto) 0 % (0-3) Neutrophils # (Auto) 2.0 x10^3uL (1.8-7.7) Lymphocytes # (Auto) 0.1 x10^3/uL (1.0-4.8) Monocytes # (Auto) 0.1 x10^3/uL (0.0-1.1) Eosinophils # (Auto) 0.0 x10^3/uL (0.0-0.7) Basophils # (Auto) 0.0 x10^3/uL (0.0-0.2) Sodium Level 136 mmol/L (136-145) Potassium Level 2.6 mmol/L (3.5-5.1) Chloride Level 101 mmol/L (98-107) Carbon Dioxide Level 20 mmol/L (21-32) Anion Gap 15 (6-14) Blood Urea Nitrogen 32 mg/dL (7-20) Creatinine 0.6 mg/dL (0.6-1.0) Estimated GFR (Cockcroft-Gault) 98.3 Glucose Level 85 mg/dL (70-99) Calcium Level 6.7 mg/dL (8.5-10.1) Medications Active Scripts Medications Dose Route/Sig Max Daily Dose Days Date Category Avelox (Moxifloxacin Hcl) 400 Mg Tablet 1 Tab PO DAILY 05/17/18 Rx Diphenoxylate-Atropine Tablet (Diphenoxylate Hcl/Atropine) 1 Each Tablet 1 Tab PO PRN QID PRN 30 04/21/18 Rx Famotidine 20 Mg Tablet 20 Mg PO QHS 60 04/19/18 Rx Aspirin Ec (Aspirin) 81 Mg Tablet.dr 81 Mg PO DAILYWBKFT 30 04/19/18 Rx Toprol Xl (Metoprolol Succinate) 50 Mg Tab.er.24h 50 Mg PO HS 30 04/19/18 Rx Hydrocodone-Apap 5-325 (Hydrocodone Bit/Acetaminophen) 1 Tab Tablet 1 Tab PO PRN Q4HRS PRN 03/09/18 Rx Multivitamins (Multivitamin) 1 Each Tablet 1 Each PO DAILY 03/07/18 Reported Vitamin D3 (Cholecalciferol (Vitamin D3)) 1,000 Unit Tablet 1,000 Unit PO DAILY 03/07/18 Reported Impression . 1. Abnormal CT chest with a cavitary mass in the right chest, likely abscess. This has an air fluid level. This is considerably reduced in size compared to the 03/2018 CT. D/W RADIOLOGY. Location of right lung abscess slightly inferior to previous one and as such new abscess. There is new pneumonia in RUL and tiny thin cavitary nodules in left lung. She has distended stomach and possibility of fistula cannot be ruled out. She likely has ongoing / recurrent aspiration form bowel obstruction contributing to recurrent lung abscess. 2. Ongoing weakness, subjective weight loss, failure to thrive and now comes in with nausea, vomiting. These symptoms are likely related to a GI pathology including small-bowel obstruction and possible pneumoperitoneum. General Surgery is following. 3. No significant history of tobacco use. 4. Coffee ground NG aspirate 5. Pneumoperitonium Bronch cultures from Mar 2018 BRONCH CULTURE Final Final report BRONCH RES 1 Final Citrobacter freundii 4+ ANTIMICROBIAL SUSCEPTIBILITY Final Comment S = Susceptible; I = Intermediate; R = Resistant P = Positive; N = Negative MICS are expressed in micrograms per mL Antibiotic RSLT#1 RSLT#2 RSLT#3 RSLT#4 Amoxicillin/Clavulanic Acid R>=32 Cefazolin R>=64 Cefepime S<=0.12 Ceftriaxone R>=64 Cefuroxime R>=64 Ciprofloxacin S<=0.25 Gentamicin S<=1 Imipenem S<=0.25 Levofloxacin S<=0.12 Meropenem S<=0.25 Nitrofurantoin S<=16 Tetracycline S<=1 Tobramycin S<=1 Trimethoprim/Sulfa S<=20 Performed at: DA - [facility] [address], [place], [place] [id number] Apartment Community Assistant Manager: KAILASH Zarate MD, Phone: [phone] Plan . 1. At this point, I would continue to treat with present antibiotic, meropenem. 2. Would hold off any further pulmonary invasive testing such as bronchoscopy or CT-guided aspiration. Repeat CT chest in next month would be reasonable. I have reviewed old Bronch cultures from Mar 2018, grew Citrobactor, S to Avelox 3. Continue supportive care. 4. Follow General Surgery's recommendations. 5. Consulted Infectious Disease. d/w DR OSORIO 6. We will follow along with you. Discussed with RN. 7. Await GI input D/W FAMILY IN DETAIL DEDE MCNULTY MD August 18, 2018 12:40
--- NOTE | 2018-08-18 13:17 | PDOC ---
PROGRESS NOTES Subjective Subjective Patient feels better 1300 cc out of NG. Patient CT chest shows new lung nodules/abscesses. Low K+ noted supplement started. Picc line in place and TPN ordered. Objective Objective Vital Signs Date Time Temp Pulse Resp B/P (MAP) Pulse Ox O2 Delivery O2 Flow Rate FiO2 08/18/18 11:00 96.0 61 16 97/49 (65) 96 Room Air 96.0 Intake and Output 08/18/18 07:00 Intake Total 100 ml Output Total 1500 ml Balance -1400 ml Intake Oral 0 ml IV Total 100 ml Output Drainage Total 1500 ml # Voids 1 Physical Exam Abdomen: Normal bowel sounds Heart: Regular rate Extremities: Other (3+ edema) General: Alert Lungs: Other (course) Assessment Assessment Problems Medical Problems: (1) Pneumoperitoneum Status: Acute 1. Small-bowel obstruction. 2. Severe protein malnutrition. 3. Leukopenia. 4. Hyponatremia. 5. Hypomagnesemia. 6. Hypokalemia 7. Pulm abscesses vs. metastatic Dz Plan Plan of Care Proceed with Mag supplementation Start TPN Continue Puln GI and Surg care Supportive care on going Comment Review of Relevant I have reviewed the following items jackie (where applicable) has been applied. Labs Laboratory Tests Test 08/17/18 06:29 08/17/18 06:44 08/18/18 05:36 White Blood Count 2.7 x10^3/uL (4.0-11.0) 2.2 x10^3/uL (4.0-11.0) Red Blood Count 5.10 x10^6/uL (3.50-5.40) 4.41 x10^6/uL (3.50-5.40) Hemoglobin 15.2 g/dL (12.0-15.5) 13.3 g/dL (12.0-15.5) Hematocrit 45.3 % (36.0-47.0) 39.3 % (36.0-47.0) Mean Corpuscular Volume 89 fL (79-100) 89 fL (79-100) Mean Corpuscular Hemoglobin 30 pg (25-35) 30 pg (25-35) Mean Corpuscular Hemoglobin Concent 34 g/dL (31-37) 34 g/dL (31-37) Red Cell Distribution Width 16.0 % (11.5-14.5) 16.0 % (11.5-14.5) Platelet Count 273 x10^3/uL (140-400) 220 x10^3/uL (140-400) Neutrophils (%) (Auto) 83 % (31-73) 89 % (31-73) Lymphocytes (%) (Auto) 11 % (24-48) 6 % (24-48) Monocytes (%) (Auto) 5 % (0-9) 5 % (0-9) Eosinophils (%) (Auto) 0 % (0-3) 0 % (0-3) Basophils (%) (Auto) 0 % (0-3) 0 % (0-3) Neutrophils # (Auto) 2.3 x10^3uL (1.8-7.7) 2.0 x10^3uL (1.8-7.7) Lymphocytes # (Auto) 0.3 x10^3/uL (1.0-4.8) 0.1 x10^3/uL (1.0-4.8) Monocytes # (Auto) 0.1 x10^3/uL (0.0-1.1) 0.1 x10^3/uL (0.0-1.1) Eosinophils # (Auto) 0.0 x10^3/uL (0.0-0.7) 0.0 x10^3/uL (0.0-0.7) Basophils # (Auto) 0.0 x10^3/uL (0.0-0.2) 0.0 x10^3/uL (0.0-0.2) Segmented Neutrophils % 46 % (35-66) Band Neutrophils % 41 % (0-9) Lymphocytes % 10 % (24-48) Monocytes % 3 % (0-10) Platelet Estimate Adequate (ADEQUATE) Large Platelets Few Anisocytosis Present Prothrombin Time 17.0 SEC (11.7-14.0) Prothromb Time International Ratio 1.4 (0.8-1.1) Sodium Level 137 mmol/L (136-145) 136 mmol/L (136-145) Potassium Level 3.2 mmol/L (3.5-5.1) 2.6 mmol/L (3.5-5.1) Chloride Level 100 mmol/L (98-107) 101 mmol/L (98-107) Carbon Dioxide Level 20 mmol/L (21-32) 20 mmol/L (21-32) Anion Gap 17 (6-14) 15 (6-14) Blood Urea Nitrogen 32 mg/dL (7-20) 32 mg/dL (7-20) Creatinine 0.7 mg/dL (0.6-1.0) 0.6 mg/dL (0.6-1.0) Estimated GFR (Cockcroft-Gault) 82.3 98.3 BUN/Creatinine Ratio 46 (6-20) Glucose Level 66 mg/dL (70-99) 85 mg/dL (70-99) Calcium Level 7.8 mg/dL (8.5-10.1) 6.7 mg/dL (8.5-10.1) Magnesium Level 1.4 mg/dL (1.8-2.4) Total Bilirubin 0.4 mg/dL (0.2-1.0) Aspartate Amino Transf (AST/SGOT) 50 U/L (15-37) Alanine Aminotransferase (ALT/SGPT) 85 U/L (14-59) Alkaline Phosphatase 249 U/L (46-116) Troponin I Quantitative < 0.017 ng/mL (0.000-0.055) Total Protein 6.1 g/dL (6.4-8.2) Albumin 2.6 g/dL (3.4-5.0) Albumin/Globulin Ratio 0.7 (1.0-1.7) Lipase 49 U/L (73-393) Procalcitonin 0.17 ng/mL (0.00-0.10) Urine Collection Type Unknown Urine Color Yellow Urine Clarity Clear Urine pH 5.5 Urine Specific [place] 1.025 Urine Protein Negative mg/dL (NEG-TRACE) Urine Glucose (UA) Negative mg/dL (NEG) Urine Ketones (Stick) Negative mg/dL (NEG) Urine Blood Negative (NEG) Urine Nitrite Negative (NEG) Urine Bilirubin Small (NEG) Urine Urobilinogen Dipstick 0.2 mg/dL (0.2 mg/dL) Urine Leukocyte Esterase Negative (NEG) Urine RBC 0 /HPF (0-2) Urine WBC 0 /HPF (0-4) Urine Squamous Epithelial Cells None /LPF Urine Transitional Epithelial Cells Few /LPF Urine Bacteria 0 /HPF (0-FEW) Urine Mucus Slight /LPF Laboratory Tests Test 08/18/18 05:36 White Blood Count 2.2 x10^3/uL (4.0-11.0) Red Blood Count 4.41 x10^6/uL (3.50-5.40) Hemoglobin 13.3 g/dL (12.0-15.5) Hematocrit 39.3 % (36.0-47.0) Mean Corpuscular Volume 89 fL (79-100) Mean Corpuscular Hemoglobin 30 pg (25-35) Mean Corpuscular Hemoglobin Concent 34 g/dL (31-37) Red Cell Distribution Width 16.0 % (11.5-14.5) Platelet Count 220 x10^3/uL (140-400) Neutrophils (%) (Auto) 89 % (31-73) Lymphocytes (%) (Auto) 6 % (24-48) Monocytes (%) (Auto) 5 % (0-9) Eosinophils (%) (Auto) 0 % (0-3) Basophils (%) (Auto) 0 % (0-3) Neutrophils # (Auto) 2.0 x10^3uL (1.8-7.7) Lymphocytes # (Auto) 0.1 x10^3/uL (1.0-4.8) Monocytes # (Auto) 0.1 x10^3/uL (0.0-1.1) Eosinophils # (Auto) 0.0 x10^3/uL (0.0-0.7) Basophils # (Auto) 0.0 x10^3/uL (0.0-0.2) Sodium Level 136 mmol/L (136-145) Potassium Level 2.6 mmol/L (3.5-5.1) Chloride Level 101 mmol/L (98-107) Carbon Dioxide Level 20 mmol/L (21-32) Anion Gap 15 (6-14) Blood Urea Nitrogen 32 mg/dL (7-20) Creatinine 0.6 mg/dL (0.6-1.0) Estimated GFR (Cockcroft-Gault) 98.3 Glucose Level 85 mg/dL (70-99) Calcium Level 6.7 mg/dL (8.5-10.1) Medications Current Medications Sodium Chloride 1,000 ml @ 100 mls/hr Q10H IV Last administered on 08/17/18at 06:55; Start 08/17/18 at 06:30; Stop 08/17/18 at 16:29; Status DC Ondansetron HCl (Zofran) 4 mg 1X ONCE IV Last administered on 08/17/18at 06:55; Start 08/17/18 at 06:30; Stop 08/17/18 at 06:31; Status DC Iohexol (Omnipaque 240 Mg/ml) 30 ml 1X ONCE PO Last administered on 08/17/18at 07:15; Start 08/17/18 at 07:15; Stop 08/17/18 at 07:16; Status DC Iohexol (Omnipaque 300 Mg/ml) 75 ml 1X ONCE IV Last administered on 08/17/18at 08:11; Start 08/17/18 at 07:15; Stop 08/17/18 at 07:16; Status DC Info (CONTRAST GIVEN -- Rx MONITORING) 1 each PRN DAILY PRN MC SEE COMMENTS; Start 08/17/18 at 07:15; Stop 08/19/18 at 07:14 Sodium Chloride 1,000 ml @ 1,000 mls/hr 1X ONCE IV Last administered on 08/17/18at 07:45; Start 08/17/18 at 07:45; Stop 08/17/18 at 08:44; Status DC Magnesium Sulfate/ Dextrose 100 ml @ 100 mls/hr 1X ONCE IV Last administered on 08/17/18at 14:55; Start 08/17/18 at 07:45; Stop 08/17/18 at 08:44; Status DC Potassium Chloride/Water 100 ml @ 100 mls/hr Q1H IV Last administered on 08/17/18at 09:23; Start 08/17/18 at 07:45; Stop 08/17/18 at 09:44; Status DC Ertapenem 50 ml @ 100 mls/hr 1X ONCE IV ; Start 08/17/18 at 09:15; Stop 08/17/18 at 09:44; Status UNV Meropenem 500 mg/ Sodium Chloride 50 ml @ 100 mls/hr 1X ONCE IV Last administered on 08/17/18at 10:53; Start 08/17/18 at 09:30; Stop 08/17/18 at 09:59; Status DC Ondansetron HCl (Zofran) 4 mg PRN Q8HRS PRN IV NAUSEA/VOMITING; Start 08/17/18 at 10:00; Stop 08/18/18 at 09:59; Status DC Morphine Sulfate (Morphine Sulfate) 4 mg PRN Q2HR PRN IV PAIN; Start 08/17/18 at 10:00; Stop 08/18/18 at 09:59; Status DC Meropenem 500 mg/ Sodium Chloride 50 ml @ 100 mls/hr Q8HRS IV Last administered on 08/18/18at 06:06; Start 08/17/18 at 14:00 Amino Acids/ Glycerin/ Electrolytes 1,000 ml @ 80 mls/hr [id number] IV Last administered on 08/17/18at 20:57; Start 08/17/18 at 20:15 Potassium Chloride/Sodium Chloride 1,000 ml @ 75 mls/hr 1X ONCE IV Last administered on 08/18/18at 11:26; Start 08/18/18 at 07:45; Stop 08/18/18 at 21:04 Magnesium Sulfate 50 ml @ 25 mls/hr 1X ONCE IV ; Start 08/18/18 at 09:00; Stop 08/18/18 at 10:59; Status DC Famotidine (Pepcid Vial) 20 mg QHS IVP ; Start 08/18/18 at 21:00 Info (Tpn Per Pharmacy) 1 each PRN DAILY PRN MC SEE COMMENTS; Start 08/18/18 at 13:15 Active Scripts Active Avelox (Moxifloxacin Hcl) 400 Mg Tablet 1 Tab PO DAILY Diphenoxylate-Atropine Tablet (Diphenoxylate Hcl/Atropine) 1 Each Tablet 1 Tab PO PRN QID PRN 30 Days Famotidine 20 Mg Tablet 20 Mg PO QHS 60 Days Aspirin Ec (Aspirin) 81 Mg Tablet.dr 81 Mg PO DAILYWBKFT 30 Days Toprol Xl (Metoprolol Succinate) 50 Mg Tab.er.24h 50 Mg PO HS 30 Days Hydrocodone-Apap 5-325 (Hydrocodone Bit/Acetaminophen) 1 Tab Tablet 1 Tab PO PRN Q4HRS PRN Reported Multivitamins (Multivitamin) 1 Each Tablet 1 Each PO DAILY Vitamin D3 (Cholecalciferol (Vitamin D3)) 1,000 Unit Tablet 1,000 Unit PO DAILY Vitals/I & O Vital Sign - Last 24 Hours 508/17/18 08/17/18 08/17/18 15:00 19:35 20:07 23:35 Temp 97.7 97.3 97.3 97.7 97.3 97.3 Pulse 71 79 78 Resp 18 16 16 B/P (MAP) 100/47 (64) 104/57 (73) 111/66 (81) Pulse Ox 94 96 92 O2 Delivery Room Air Room Air Room Air Room Air 08/18/18 08/18/18 08/18/18 03:35 07:00 11:00 Temp 96.8 96.0 96.8 96.0 Pulse 75 82 61 Resp 16 14 16 B/P (MAP) 114/58 (76) 112/55 (74) 97/49 (65) Pulse Ox 100 98 96 O2 Delivery Room Air Room Air Room Air Intake and Output 08/17/18 08/17/18 08/18/18 15:00 23:00 07:00 Intake Total 100 ml 0 ml Output Total 800 ml 700 ml Balance -700 ml 0 ml -700 ml Nutrition Consultation Dietary Evaluation: Recommendations by RD: Increase Calorie Intake, Protein supplementation, PPN/TPN Comments: REC TPN, mvi, vit c Expected Outcomes/Goals: to meet > 75% est nutr needs via TPN Interpretation of weight loss: >10% in 6 months Malnutrition Findings: Muscle Mass (Severe): Severe Depletion Weight Status: Underweight ALLYN PATE MD August 18, 2018 13:17
[2018-08-18] MEDS: TPN PER PHARMACY MC PRN ×2 (13:54→13:59)
[2018-08-18 15:00] VITALS: BP 98/44
[2018-08-18 15:15] LABS: ALBUMIN 2.1 g/dL (3.4-5.0); DIRECT BILIRUBIN 0.2 mg/dL (0.0-0.2); TOTAL BILIRUBIN 0.4 mg/dL (0.2-1.0); TOTAL PROTEIN 5.8 g/dL (6.4-8.2)
[2018-08-18 15:33] LABS: PHOSPHORUS 2.7 mg/dL (2.6-4.7)
[2018-08-18 19:40] VITALS: BP 112/55
[2018-08-18] MEDS: FAMOTIDINE 20 MG/2 ML VIAL IVP SCH (21:24)
[2018-08-18] MEDS ORDERED: TOTAL PARENTERAL NUTRITION 1,424.9987 ML, AMINO ACID 15% 60 GM, DEXTROSE 70 % IN WATER ... IV SCH ×10 (22:00)
[2018-08-18 23:36] VITALS: BP 107/68
[2018-08-19 03:26] VITALS: BP 115/67
[2018-08-19 05:05] LABS: HEMATOCRIT 35.7 % (36.0-47.0); HEMOGLOBIN 11.8 g/dL (12.0-15.5); RED BLOOD COUNT 4.02 x10^6/uL (3.50-5.40); RED CELL DISTRIBUTION WIDTH 16.5 % (11.5-14.5); WHITE BLOOD COUNT 3.9 x10^3/uL (4.0-11.0)
[2018-08-19 05:36] LABS: ALBUMIN 1.9 g/dL (3.4-5.0); ALBUMIN/GLOBULIN RATIO 0.5 (1.0-1.7); CALCIUM 6.4 mg/dL (8.5-10.1); CREATININE 0.6 mg/dL (0.6-1.0); GFR 98.3; MAGNESIUM 2.2 mg/dL (1.8-2.4); POTASSIUM 3.3 mmol/L (3.5-5.1); TOTAL BILIRUBIN 0.4 mg/dL (0.2-1.0); TOTAL PROTEIN 5.4 g/dL (6.4-8.2)
[2018-08-19] MEDS: MEROPENEM 500 MG in IV NORMAL SALINE 50ML 50 ML IV SCH ×3 (05:38→21:47)
--- NOTE | 2018-08-19 06:53 | CONS ---
DATE OF CONSULTATION: 08/18/2018 REFERRING PHYSICIAN: Dr. Fischer. REASON FOR CONSULTATION: Lung abscess. HISTORY OF PRESENT ILLNESS: A 73-year-old female who presented to the ER on 08/17/2018 via EMS was not feeling well and sick for the last couple of months. She started having vomiting, which got worse, which made her increasingly weak. No fevers, no chills, no cough, no shortness of breath. She has not felt well since February and has lost weight. She was admitted in 03/2018 at which time she had a CT, which showed large cystic lesion with air fluid in the superior segment of the right lower lobe with adjacent infiltrates. The patient underwent bronchoscopy and cytology which were removed and reported negative. She was treated with IV antibiotics and was discharged on 3 weeks of Avelox, which the patient completed. The patient continued to feel weak. She did have a crown which she lost a couple of weeks ago for which she underwent a temporary crown and is awaiting future replacement of the crown. She had a CT of the abdomen and pelvis, which shows severe distention of the stomach and most of the small bowel, most compatible with distal bowel obstruction. The patient has had issues with small-bowel obstruction for about a year now. There were also pockets of gas. Density in the left lower quadrant concerning for pneumoperitoneum. GI and General Surgery were consulted. Pulmonary was consulted. She was started on IV meropenem as the repeat CT showed worsening of the right lower lobe infiltrate, new cavitary lesion suggesting moderate sized abscess, new right upper lobe infiltrate compatible with pneumonia and new scattered tiny nodular opacities in both lungs, some of which are cavitary which suggest septic emboli versus metastatic disease. The patient underwent NG tube placement, which is draining at this time. PAST MEDICAL HISTORY: Rectal cancer, IBS, GERD, osteopenia, PSVT, breast biopsy, cholecystectomy, left eyelid surgery, bunionectomy, tonsillectomy, hysterectomy, right hip surgery, bronchoscopy. FAMILY HISTORY: Positive for pancreatic cancer. SOCIAL HISTORY: Quit smoking. Denies illicit drug use. Lives with her at home. No pets. REVIEW OF SYSTEMS: Negative except for above. ALLERGIES: CODEINE, LATEX. CURRENT MEDICATIONS: Meropenem. Other medications reviewed in medication list. PHYSICAL EXAMINATION: VITAL SIGNS: Temperature 96.8, pulse 82, respiratory rate 14, blood pressure 122/55. GENERAL: Thin, cachectic female, lying in bed, obese, comfortable. HEENT: Normocephalic, atraumatic, anicteric. NG tube with brown material. NECK: Supple. LUNGS: Decreased breath sounds at the bases. HEART: S1, S2, no murmurs. ABDOMEN: Soft, nontender. EXTREMITIES: Trace edema. DERMATOLOGIC: Warm, dry, no generalized rash, appears pale. NEUROLOGY: Grossly nonfocal, appears weak. PSYCHIATRIC: Cooperative. LABORATORY DATA: WBC 2.2, hemoglobin 13.3, hematocrit 39.3, platelets 220, neutrophils 89%, lymphocytes 6, procalcitonin 0.17. Sodium 136, potassium 2.6, chloride 101, bicarbonate 20, BUN 32, creatinine 0.6, glucose 85, calcium 6.7. UA negative. Bronch culture 04/19/2018. AFB negative. Bacterial cultures negative. 03/2018 Citrobacter freundii sensitive to ciprofloxacin, gentamicin, imipenem, levofloxacin, meropenem, nitrofurantoin, tetracycline, tobramycin, trimethoprim sulfa. DIAGNOSTICS: Chest x-ray shows increasing streaky right perihilar infiltrate and rounded mass, which now appears new. Abdomen and pelvic CT shows severe distention of stomach and most of the small bowel, most compatible with distal bowel obstruction. There are some pockets of gas density in the left lower quadrant and pelvis concerning for pneumoperitoneum. The source of this gas is uncertain, but it is concerning for bowel perforation. The subpleural nodule in the right lower lobe posteriorly 9 mm, this could represent some focal consolidation or pulmonary nodule cannot be excluded, raising concern for metastatic disease of the chest. Follow up CT chest in 3 months. KUB showed NG tube within the proximal body of the stomach, small bowel obstruction. CT chest showed worsening right lower lobe infiltrate with new cavitary lesion suggestive of moderate size abscess, new right upper lobe infiltrate compatible with pneumonia, new scattered tiny nodular opacities in both lungs, some of which are cavitary. This finding suggests septic emboli versus metastatic disease. IMPRESSION: 1. 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 2. Multiple cavitary nodules in the lung. AFB cultures negative in 03/2018. 3. Ongoing subjective weight loss, failure to thrive, nausea, vomiting, weakness, cachexia. 4. Recurrent small bowel obstruction. Abnormal CT with questionable pneumoperitoneum. 5. Hypokalemia and hypomagnesemia. LFT elevation. 6. Protein-calorie malnutrition. 7. Gastroesophageal reflux disease with hiatal hernia. 8. History of rectal cancer, last colonoscopy 03/2014. 9. History of irritable bowel syndrome. 10. Bandemia. RECOMMENDATIONS: 1. Continue meropenem. 2. Pulmonary input noted. They are going to hold off on further pulmonary invasive testing such as bronchoscopy or CT-guided aspiration. Repeat CT chest is planned in 1 month. 3. GI following. 4. General Surgery consulted. 5. Follow up cultures and lab in a.m. 6. Continue supportive care. Thank you, Dr. Fischer, for consulting Infectious Disease to participate in this patient's care. We will follow along with you. JJ OSORIO MD DR: ERICH/curtis JOB#: [id number] / [id number]
[2018-08-19 07:00] VITALS: BP 111/57
--- NOTE | 2018-08-19 08:11 | RAD ---
EXAM: CHEST 1 VIEW History: PICC line placement COMPARISON: 08/17/2018 TECHNIQUE: Single portable radiograph of the chest FINDINGS: The cardiomediastinal silhouette grossly appears unremarkable. A NG tube is identified the left midabdomen likely within the stomach. The left-sided PICC line is identified at the SVC/RA junction. Cavitary lesion/abscess identified in the right lower lobe of the lung identified. Patchy airspace opacities identified in the right upper lobe, right lower lobe of the lung likely pneumonia or atelectasis identified. IMPRESSION: 1. NG tube, left-sided PICC line in place. Otherwise, unchanged exam. Electronically signed by: Gallo Amato MD (08/19/2018 8:08 AM) [facility]
--- NOTE | 2018-08-19 08:51 | PDOC ---
SURGICAL PROGRESS NOTE Subjective Patient fell a little better this morning denies any abdominal pain nice having passed any flatus or stool Vital Signs Vital Signs Date Time Temp Pulse Resp B/P (MAP) Pulse Ox O2 Delivery O2 Flow Rate FiO2 08/19/18 07:00 97.4 78 16 111/57 (75) 98 Room Air 97.4 I&O Intake and Output 08/19/18 07:00 Intake Total 0 ml Output Total 800 ml Balance -800 ml Intake Oral 0 ml Output Gastric Drainage Total 800 ml # Voids 3 PATIENT HAS A BANKS: Yes General: Alert, Oriented X3, Cooperative, mild distress Abdomen: Normal bowel sounds, Soft, No tenderness, Other (NG tube in place bilious output) Labs Laboratory Tests Test 08/18/18 05:36 08/19/18 04:30 White Blood Count 2.2 x10^3/uL (4.0-11.0) 3.9 x10^3/uL (4.0-11.0) Red Blood Count 4.41 x10^6/uL (3.50-5.40) 4.02 x10^6/uL (3.50-5.40) Hemoglobin 13.3 g/dL (12.0-15.5) 11.8 g/dL (12.0-15.5) Hematocrit 39.3 % (36.0-47.0) 35.7 % (36.0-47.0) Mean Corpuscular Volume 89 fL (79-100) 89 fL (79-100) Mean Corpuscular Hemoglobin 30 pg (25-35) 29 pg (25-35) Mean Corpuscular Hemoglobin Concent 34 g/dL (31-37) 33 g/dL (31-37) Red Cell Distribution Width 16.0 % (11.5-14.5) 16.5 % (11.5-14.5) Platelet Count 220 x10^3/uL (140-400) 208 x10^3/uL (140-400) Neutrophils (%) (Auto) 89 % (31-73) Lymphocytes (%) (Auto) 6 % (24-48) Monocytes (%) (Auto) 5 % (0-9) Eosinophils (%) (Auto) 0 % (0-3) Basophils (%) (Auto) 0 % (0-3) Neutrophils # (Auto) 2.0 x10^3uL (1.8-7.7) Lymphocytes # (Auto) 0.1 x10^3/uL (1.0-4.8) Monocytes # (Auto) 0.1 x10^3/uL (0.0-1.1) Eosinophils # (Auto) 0.0 x10^3/uL (0.0-0.7) Basophils # (Auto) 0.0 x10^3/uL (0.0-0.2) Sodium Level 136 mmol/L (136-145) 139 mmol/L (136-145) Potassium Level 2.6 mmol/L (3.5-5.1) 3.3 mmol/L (3.5-5.1) Chloride Level 101 mmol/L (98-107) 106 mmol/L (98-107) Carbon Dioxide Level 20 mmol/L (21-32) 19 mmol/L (21-32) Anion Gap 15 (6-14) 14 (6-14) Blood Urea Nitrogen 32 mg/dL (7-20) 31 mg/dL (7-20) Creatinine 0.6 mg/dL (0.6-1.0) 0.6 mg/dL (0.6-1.0) Estimated GFR (Cockcroft-Gault) 98.3 98.3 Glucose Level 85 mg/dL (70-99) 96 mg/dL (70-99) Calcium Level 6.7 mg/dL (8.5-10.1) 6.4 mg/dL (8.5-10.1) Phosphorus Level 2.7 mg/dL (2.6-4.7) 2.0 mg/dL (2.6-4.7) Total Bilirubin 0.4 mg/dL (0.2-1.0) 0.4 mg/dL (0.2-1.0) Direct Bilirubin 0.2 mg/dL (0.0-0.2) Aspartate Amino Transf (AST/SGOT) 35 U/L (15-37) 26 U/L (15-37) Alanine Aminotransferase (ALT/SGPT) 71 U/L (14-59) 55 U/L (14-59) Alkaline Phosphatase 186 U/L (46-116) 172 U/L (46-116) Total Protein 5.8 g/dL (6.4-8.2) 5.4 g/dL (6.4-8.2) Albumin 2.1 g/dL (3.4-5.0) 1.9 g/dL (3.4-5.0) Triglycerides Level 211 mg/dL (0-150) BUN/Creatinine Ratio 52 (6-20) Magnesium Level 2.2 mg/dL (1.8-2.4) Albumin/Globulin Ratio 0.5 (1.0-1.7) Laboratory Tests Test 08/19/18 04:30 White Blood Count 3.9 x10^3/uL (4.0-11.0) Red Blood Count 4.02 x10^6/uL (3.50-5.40) Hemoglobin 11.8 g/dL (12.0-15.5) Hematocrit 35.7 % (36.0-47.0) Mean Corpuscular Volume 89 fL (79-100) Mean Corpuscular Hemoglobin 29 pg (25-35) Mean Corpuscular Hemoglobin Concent 33 g/dL (31-37) Red Cell Distribution Width 16.5 % (11.5-14.5) Platelet Count 208 x10^3/uL (140-400) Sodium Level 139 mmol/L (136-145) Potassium Level 3.3 mmol/L (3.5-5.1) Chloride Level 106 mmol/L (98-107) Carbon Dioxide Level 19 mmol/L (21-32) Anion Gap 14 (6-14) Blood Urea Nitrogen 31 mg/dL (7-20) Creatinine 0.6 mg/dL (0.6-1.0) Estimated GFR (Cockcroft-Gault) 98.3 BUN/Creatinine Ratio 52 (6-20) Glucose Level 96 mg/dL (70-99) Calcium Level 6.4 mg/dL (8.5-10.1) Phosphorus Level 2.0 mg/dL (2.6-4.7) Magnesium Level 2.2 mg/dL (1.8-2.4) Total Bilirubin 0.4 mg/dL (0.2-1.0) Aspartate Amino Transf (AST/SGOT) 26 U/L (15-37) Alanine Aminotransferase (ALT/SGPT) 55 U/L (14-59) Alkaline Phosphatase 172 U/L (46-116) Total Protein 5.4 g/dL (6.4-8.2) Albumin 1.9 g/dL (3.4-5.0) Albumin/Globulin Ratio 0.5 (1.0-1.7) Problem List Problems Medical Problems: (1) Pneumoperitoneum Status: Acute Assessment/Plan Severely malnourished female with small bowel obstruction NG tube in place decompression PICC line in place receiving TPN Continue conservative therapy GALILEO SALAZAR MD Aug 19, 2018 08:51
--- NOTE | 2018-08-19 10:17 | RAD ---
Examination: Acute abdomen series HISTORY: History of small bowel obstruction COMPARISON: 05/22/2018 20/ impression: The cardiomediastinal silhouette grossly appears unremarkable. The feeding tube, left-sided PICC line in place. Cavitary lesion/abscess identified in the right lower lobe of the lung with patchy airspace opacities identified in the bilateral lungs similar to prior exam. No evidence of free air identified in the abdomen. Nonspecific bowel gas pattern.. Feces and gas noted in the colon. Electronically signed by: Gallo Amato MD (08/19/2018 10:14 AM) [facility]
[2018-08-19 11:00] VITALS: BP 123/60
--- NOTE | 2018-08-19 11:02 | PDOC ---
PULMONARY PROGRESS NOTES Subjective NG output not bloody better Vitals Vital Signs Date Time Temp Pulse Resp B/P (MAP) Pulse Ox O2 Delivery O2 Flow Rate FiO2 08/19/18 08:00 Room Air 08/19/18 07:00 97.4 78 16 111/57 (75) 98 97.4 General: Alert, No acute distress Lungs: Clear Cardiovascular: S1, S2 Abdomen: Soft, Non-tender Extremities: No Edema Labs Laboratory Tests Test 08/18/18 05:36 08/19/18 04:30 White Blood Count 2.2 x10^3/uL (4.0-11.0) 3.9 x10^3/uL (4.0-11.0) Red Blood Count 4.41 x10^6/uL (3.50-5.40) 4.02 x10^6/uL (3.50-5.40) Hemoglobin 13.3 g/dL (12.0-15.5) 11.8 g/dL (12.0-15.5) Hematocrit 39.3 % (36.0-47.0) 35.7 % (36.0-47.0) Mean Corpuscular Volume 89 fL (79-100) 89 fL (79-100) Mean Corpuscular Hemoglobin 30 pg (25-35) 29 pg (25-35) Mean Corpuscular Hemoglobin Concent 34 g/dL (31-37) 33 g/dL (31-37) Red Cell Distribution Width 16.0 % (11.5-14.5) 16.5 % (11.5-14.5) Platelet Count 220 x10^3/uL (140-400) 208 x10^3/uL (140-400) Neutrophils (%) (Auto) 89 % (31-73) Lymphocytes (%) (Auto) 6 % (24-48) Monocytes (%) (Auto) 5 % (0-9) Eosinophils (%) (Auto) 0 % (0-3) Basophils (%) (Auto) 0 % (0-3) Neutrophils # (Auto) 2.0 x10^3uL (1.8-7.7) Lymphocytes # (Auto) 0.1 x10^3/uL (1.0-4.8) Monocytes # (Auto) 0.1 x10^3/uL (0.0-1.1) Eosinophils # (Auto) 0.0 x10^3/uL (0.0-0.7) Basophils # (Auto) 0.0 x10^3/uL (0.0-0.2) Sodium Level 136 mmol/L (136-145) 139 mmol/L (136-145) Potassium Level 2.6 mmol/L (3.5-5.1) 3.3 mmol/L (3.5-5.1) Chloride Level 101 mmol/L (98-107) 106 mmol/L (98-107) Carbon Dioxide Level 20 mmol/L (21-32) 19 mmol/L (21-32) Anion Gap 15 (6-14) 14 (6-14) Blood Urea Nitrogen 32 mg/dL (7-20) 31 mg/dL (7-20) Creatinine 0.6 mg/dL (0.6-1.0) 0.6 mg/dL (0.6-1.0) Estimated GFR (Cockcroft-Gault) 98.3 98.3 Glucose Level 85 mg/dL (70-99) 96 mg/dL (70-99) Calcium Level 6.7 mg/dL (8.5-10.1) 6.4 mg/dL (8.5-10.1) Phosphorus Level 2.7 mg/dL (2.6-4.7) 2.0 mg/dL (2.6-4.7) Total Bilirubin 0.4 mg/dL (0.2-1.0) 0.4 mg/dL (0.2-1.0) Direct Bilirubin 0.2 mg/dL (0.0-0.2) Aspartate Amino Transf (AST/SGOT) 35 U/L (15-37) 26 U/L (15-37) Alanine Aminotransferase (ALT/SGPT) 71 U/L (14-59) 55 U/L (14-59) Alkaline Phosphatase 186 U/L (46-116) 172 U/L (46-116) Total Protein 5.8 g/dL (6.4-8.2) 5.4 g/dL (6.4-8.2) Albumin 2.1 g/dL (3.4-5.0) 1.9 g/dL (3.4-5.0) Triglycerides Level 211 mg/dL (0-150) BUN/Creatinine Ratio 52 (6-20) Magnesium Level 2.2 mg/dL (1.8-2.4) Albumin/Globulin Ratio 0.5 (1.0-1.7) Laboratory Tests Test 08/19/18 04:30 White Blood Count 3.9 x10^3/uL (4.0-11.0) Red Blood Count 4.02 x10^6/uL (3.50-5.40) Hemoglobin 11.8 g/dL (12.0-15.5) Hematocrit 35.7 % (36.0-47.0) Mean Corpuscular Volume 89 fL (79-100) Mean Corpuscular Hemoglobin 29 pg (25-35) Mean Corpuscular Hemoglobin Concent 33 g/dL (31-37) Red Cell Distribution Width 16.5 % (11.5-14.5) Platelet Count 208 x10^3/uL (140-400) Sodium Level 139 mmol/L (136-145) Potassium Level 3.3 mmol/L (3.5-5.1) Chloride Level 106 mmol/L (98-107) Carbon Dioxide Level 19 mmol/L (21-32) Anion Gap 14 (6-14) Blood Urea Nitrogen 31 mg/dL (7-20) Creatinine 0.6 mg/dL (0.6-1.0) Estimated GFR (Cockcroft-Gault) 98.3 BUN/Creatinine Ratio 52 (6-20) Glucose Level 96 mg/dL (70-99) Calcium Level 6.4 mg/dL (8.5-10.1) Phosphorus Level 2.0 mg/dL (2.6-4.7) Magnesium Level 2.2 mg/dL (1.8-2.4) Total Bilirubin 0.4 mg/dL (0.2-1.0) Aspartate Amino Transf (AST/SGOT) 26 U/L (15-37) Alanine Aminotransferase (ALT/SGPT) 55 U/L (14-59) Alkaline Phosphatase 172 U/L (46-116) Total Protein 5.4 g/dL (6.4-8.2) Albumin 1.9 g/dL (3.4-5.0) Albumin/Globulin Ratio 0.5 (1.0-1.7) Medications Active Scripts Medications Dose Route/Sig Max Daily Dose Days Date Category Avelox (Moxifloxacin Hcl) 400 Mg Tablet 1 Tab PO DAILY 05/17/18 Rx Diphenoxylate-Atropine Tablet (Diphenoxylate Hcl/Atropine) 1 Each Tablet 1 Tab PO PRN QID PRN 30 04/21/18 Rx Famotidine 20 Mg Tablet 20 Mg PO QHS 60 04/19/18 Rx Aspirin Ec (Aspirin) 81 Mg Tablet.dr 81 Mg PO DAILYWBKFT 30 04/19/18 Rx Toprol Xl (Metoprolol Succinate) 50 Mg Tab.er.24h 50 Mg PO HS 30 04/19/18 Rx Hydrocodone-Apap 5-325 (Hydrocodone Bit/Acetaminophen) 1 Tab Tablet 1 Tab PO PRN Q4HRS PRN 03/09/18 Rx Multivitamins (Multivitamin) 1 Each Tablet 1 Each PO DAILY 03/07/18 Reported Vitamin D3 (Cholecalciferol (Vitamin D3)) 1,000 Unit Tablet 1,000 Unit PO DAILY 03/07/18 Reported Impression . 1. Abnormal CT chest with a cavitary mass in the right chest, likely abscess. This has an air fluid level. This is considerably reduced in size compared to the 03/2018 CT. D/W RADIOLOGY. Location of recent right lung abscess slightly inferior to previous one and as such new abscess. There is new pneumonia in RUL and tiny thin cavitary nodules in left lung. She has distended stomach She likely has ongoing / recurrent aspiration form bowel obstruction contributing to recurrent lung abscess. 2. Ongoing weakness, subjective weight loss, failure to thrive and now comes in with nausea, vomiting. These symptoms are likely related to a GI pathology including small-bowel obstruction and possible pneumoperitoneum. General Surgery is following. 3. No significant history of tobacco use. 4. Coffee ground NG aspirate 5. Pneumoperitonium Bronch cultures from Mar 2018 BRONCH CULTURE Final Final report BRONCH RES 1 Final Citrobacter freundii 4+ ANTIMICROBIAL SUSCEPTIBILITY Final Comment S = Susceptible; I = Intermediate; R = Resistant P = Positive; N = Negative MICS are expressed in micrograms per mL Antibiotic RSLT#1 RSLT#2 RSLT#3 RSLT#4 Amoxicillin/Clavulanic Acid R>=32 Cefazolin R>=64 Cefepime S<=0.12 Ceftriaxone R>=64 Cefuroxime R>=64 Ciprofloxacin S<=0.25 Gentamicin S<=1 Imipenem S<=0.25 Levofloxacin S<=0.12 Meropenem S<=0.25 Nitrofurantoin S<=16 Tetracycline S<=1 Tobramycin S<=1 Trimethoprim/Sulfa S<=20 Performed at: DA - [facility] [address] [facility] [address], [place], [place] [id number] Service Delivery Supervisor: KAILASH Zarate MD, Phone: [phone] Plan . 1. At this point, I would continue to treat with present antibiotic, meropenem. 2. Would hold off any further pulmonary invasive testing such as bronchoscopy or CT-guided aspiration. Repeat CT chest in next month would be reasonable. I have reviewed old Bronch cultures from Mar 2018, grew Citrobactor, S to Avelox 3. Continue supportive care. 4. Follow General Surgery's recommendations. 5. Consulted Infectious Disease. d/w DR OSORIO 6. We will follow along with you. Discussed with RN. 7. GI input reviewed D/W FAMILY IN DETAIL DEDE MCNULTY MD Aug 19, 2018 11:02
[2018-08-19] MEDS: POTASSIUM PHOSPHATE DIBASIC 10 MMOL in IV DEXTROSE 5% 100ML 100 ML IV SCH ×2 (12:06→14:00)
--- NOTE | 2018-08-19 12:32 | PDOC ---
Infectious Disease Note Subjective Subjective c/o some abdominal cramps though not too bad Denies N/V/F/C TPN ROS ROS per HPI Vital Sign Vital Signs Vital Signs Date Time Temp Pulse Resp B/P (MAP) Pulse Ox O2 Delivery O2 Flow Rate FiO2 08/19/18 11:00 97.5 81 16 123/60 (81) 97 Room Air 97.5 Physical Exam PHYSICAL EXAM GENERAL: Resting quietly, arouses to name HEENT: Oral cavity pink, NGT to suction NECK: neck pillow in place LUNGS: Decreased breath sounds at the bases. HEART: S1, S2, no murmurs. ABDOMEN: Nondistended, soft, BS present EXTREMITIES: 1+ edema BLE, DERMATOLOGIC: Warm, dry, no generalized rash NEUROLOGY: Responds appropriately LUE-PICC clean Labs Lab Laboratory Tests Test 08/19/18 04:30 White Blood Count 3.9 x10^3/uL (4.0-11.0) Red Blood Count 4.02 x10^6/uL (3.50-5.40) Hemoglobin 11.8 g/dL (12.0-15.5) Hematocrit 35.7 % (36.0-47.0) Mean Corpuscular Volume 89 fL (79-100) Mean Corpuscular Hemoglobin 29 pg (25-35) Mean Corpuscular Hemoglobin Concent 33 g/dL (31-37) Red Cell Distribution Width 16.5 % (11.5-14.5) Platelet Count 208 x10^3/uL (140-400) Sodium Level 139 mmol/L (136-145) Potassium Level 3.3 mmol/L (3.5-5.1) Chloride Level 106 mmol/L (98-107) Carbon Dioxide Level 19 mmol/L (21-32) Anion Gap 14 (6-14) Blood Urea Nitrogen 31 mg/dL (7-20) Creatinine 0.6 mg/dL (0.6-1.0) Estimated GFR (Cockcroft-Gault) 98.3 BUN/Creatinine Ratio 52 (6-20) Glucose Level 96 mg/dL (70-99) Calcium Level 6.4 mg/dL (8.5-10.1) Phosphorus Level 2.0 mg/dL (2.6-4.7) Magnesium Level 2.2 mg/dL (1.8-2.4) Total Bilirubin 0.4 mg/dL (0.2-1.0) Aspartate Amino Transf (AST/SGOT) 26 U/L (15-37) Alanine Aminotransferase (ALT/SGPT) 55 U/L (14-59) Alkaline Phosphatase 172 U/L (46-116) Total Protein 5.4 g/dL (6.4-8.2) Albumin 1.9 g/dL (3.4-5.0) Albumin/Globulin Ratio 0.5 (1.0-1.7) The cardiomediastinal silhouette grossly appears unremarkable. The feeding tube, left-sided PICC line in place. Cavitary lesion/abscess identified in the right lower lobe of the lung with patchy airspace opacities identified in the bilateral lungs similar to prior exam. No evidence of free air identified in the abdomen. Nonspecific bowel gas pattern.. Feces and gas noted in the colon. Micro 08/18/18 Blood Culture - Preliminary, Resulted NO GROWTH AFTER 1 DAY Objective Assessment Cavitary mass in 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 Multiple cavitary nodules in the lung. AFB cultures negative in 03/2018. Ongoing subjective weight loss, failure to thrive, nausea, vomiting, weakness, cachexia. Recurrent small bowel obstruction. Abnormal CT with questionable pneumoperitoneum. Protein-calorie malnutrition. History of rectal cancer, last colonoscopy 03/2014. History of irritable bowel syndrome. Bandemia/leukopenia Plan Plan of Care Continue Merrem Follow-up cultures and susceptibilities Monitor labs Supportive care D/w family Attending Co-Sign Attending Co-Sign The patient was seen and interviewed as well as examined at the bedside. The chart was reviewed. The case was discussed. Agree with the plan of care. VINOD ACUÑA APRN Aug 19, 2018 12:32 ELADIO DWYER MD Aug 19, 2018 18:15
--- NOTE | 2018-08-19 13:11 | PDOC ---
SUBJECTIVE Subjective Pt states that she is feeling "okay". Nausea has improved. Denies having any pain. Denies vomiting. Not passing any gas OBJECTIVE Vital Signs Vital Signs Date Time Temp Pulse Resp B/P (MAP) Pulse Ox O2 Delivery O2 Flow Rate FiO2 08/19/18 11:00 97.5 81 16 123/60 (81) 97 Room Air 97.5 08/19/18 08:00 Room Air 08/19/18 07:00 97.4 78 16 111/57 (75) 98 Room Air 97.4 08/19/18 03:26 97.5 80 16 115/67 (83) 97 Room Air 97.5 08/18/18 23:36 97.5 88 16 107/68 (81) 99 Room Air 97.5 08/18/18 20:20 Room Air 08/18/18 19:40 97.4 90 16 112/55 (74) 99 Room Air 97.4 08/18/18 15:00 96.1 86 14 98/44 (62) 98 Room Air 96.1 I & O Intake and Output 08/19/18 07:00 Intake Total 0 ml Output Total 800 ml Balance -800 ml Intake Oral 0 ml Output Gastric Drainage Total 800 ml # Voids 3 PHYSICAL EXAM Physical Exam GEN: cachetic, NAD, AOx3 HEENT: NG in place, EOMI, no scleral icterus/injection Cardiac: RRR, no M/R/G Lungs: CTAB Ab: soft, non distended, NTTP Ext: 2+ pitting edema LE bilaterally Nuero: CN2-12 GI ASSESSMENT/PLAN Assessment/Plan Pt is a 73yo CF admitted with SBO 1. Small-bowel obstruction- with possible bowel perforation. NG in place. GI and surgery following. Nausea has improved. Pt on TPN 2. Severe protein malnutrition. 3. Leukopenia. 4. Hyponatremia- resolved 5. Hypomagnesemia. 6. Hypokalemia- replacing 7. 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 Pt on Meropenem currently. COMMENT Lab Laboratory Tests Test 08/19/18 04:30 White Blood Count 3.9 x10^3/uL (4.0-11.0) Red Blood Count 4.02 x10^6/uL (3.50-5.40) Hemoglobin 11.8 g/dL (12.0-15.5) Hematocrit 35.7 % (36.0-47.0) Mean Corpuscular Volume 89 fL (79-100) Mean Corpuscular Hemoglobin 29 pg (25-35) Mean Corpuscular Hemoglobin Concent 33 g/dL (31-37) Red Cell Distribution Width 16.5 % (11.5-14.5) Platelet Count 208 x10^3/uL (140-400) Sodium Level 139 mmol/L (136-145) Potassium Level 3.3 mmol/L (3.5-5.1) Chloride Level 106 mmol/L (98-107) Carbon Dioxide Level 19 mmol/L (21-32) Anion Gap 14 (6-14) Blood Urea Nitrogen 31 mg/dL (7-20) Creatinine 0.6 mg/dL (0.6-1.0) Estimated GFR (Cockcroft-Gault) 98.3 BUN/Creatinine Ratio 52 (6-20) Glucose Level 96 mg/dL (70-99) Calcium Level 6.4 mg/dL (8.5-10.1) Phosphorus Level 2.0 mg/dL (2.6-4.7) Magnesium Level 2.2 mg/dL (1.8-2.4) Total Bilirubin 0.4 mg/dL (0.2-1.0) Aspartate Amino Transf (AST/SGOT) 26 U/L (15-37) Alanine Aminotransferase (ALT/SGPT) 55 U/L (14-59) Alkaline Phosphatase 172 U/L (46-116) Total Protein 5.4 g/dL (6.4-8.2) Albumin 1.9 g/dL (3.4-5.0) Albumin/Globulin Ratio 0.5 (1.0-1.7) Nutrition Consultation Dietary Evaluation: Recommendations by RD: Increase Calorie Intake, Protein supplementation, PPN/TPN Comments: REC TPN, mvi, vit c Expected Outcomes/Goals: to meet > 75% est nutr needs via TPN Interpretation of weight loss: >10% in 6 months Malnutrition Findings: Muscle Mass (Severe): Severe Depletion Weight Status: Underweight YOLI GUERRERO MD Aug 19, 2018 13:11
[2018-08-19] MEDS ORDERED: FUROSEMIDE 20 MG/2 ML VIAL. IVP ONE (13:15)
[2018-08-19] MEDS: TPN PER PHARMACY MC PRN (13:54)
--- NOTE | 2018-08-19 13:55 | NUR ---
Pharmacy TPN Dosing Note S: CHELSIE PINEDA is a 73 year old F Currently receiving Central Continuous TPN started 08/18/18 B:Pertinent PMH: SBO Height: 5 feet, 3 inches Weight: 48.3 kg Current diet: NPO LABS: Sodium: 139 Potassium: 3.3 Chloride: 106 Calcium: 6.4 Corrected Calcium: 8.08 Magnesium: 2.2 CO2: 19 SCr: 0.6 Glucose: 96 Albumin: 1.9 AST: 26 ALT: 55 TPN FORMULA: TPN TYPE: Central Continuous AMINO ACIDS: 60 gm DEXTROSE: 195 gm LIPIDS: 20 gm SODIUM CHLORIDE: 90 mEq POTASSIUM CHLORIDE: 60 mEq POTASSIUM PHOSPHATE: 17 mmol MAGNESIUM: 10 mEq CALCIUM: 15 mEq MULTIPLE VITAMIN: 10 ml TRACE ELEMENTS: 1 ml TPN PLAN: -Serum potassium and phosphorus low - replace with KPhos outside of TPN. Increase KPhos in TPN to 17 mmol/day. -Corrected calcium low - give calcium gluc 1g outside of TPN. Increase calcium gluc to 15 mEq/day inside TPN. -BMP, mag, phos tomorrow per protocol. R: Continue TPN @ current rate and above formula. Will monitor electrolytes, glucose, and tolerance to TPN. MIGNON SANCHEZ [facility], 08/19/18 [id number]
[2018-08-19 15:00] VITALS: BP 140/70
[2018-08-19] MEDS ORDERED: CALCIUM GLUCONATE 1,000 MG in IV DEXTROSE 5% 100ML 100 ML IV ONE (15:00)
[2018-08-19 19:45] VITALS: BP 151/93
[2018-08-19] MEDS: FAMOTIDINE 20 MG/2 ML VIAL IVP SCH (21:42)
[2018-08-19] MEDS ORDERED: [UNRECOGNIZED DRUG - OTHER] IV SCH ×10 (22:00)
[2018-08-19] MEDS ORDERED: DEXTROSE 70% IV SCH ×10 (22:00)
[2018-08-19] MEDS ORDERED: AMINO ACID IV SCH ×10 (22:00)
[2018-08-19] MEDS ORDERED: TOTAL PARENTERAL NUTRITION IV SCH ×10 (22:00)
[2018-08-19 23:45] VITALS: BP 134/78
[2018-08-20 03:58] VITALS: BP 130/76
[2018-08-20] MEDS: MEROPENEM 500 MG in IV NORMAL SALINE 50ML 50 ML IV SCH ×3 (05:11→22:13)
[2018-08-20 05:34] LABS: BASO % 0 % (0-3); EOS % 0 % (0-3); HEMATOCRIT 31.8 % (36.0-47.0); LYMPH # 0.5 x10^3/uL (1.0-4.8); LYMPH % 12 % (24-48); MEAN CORPUSCULAR HEMOGLOBIN 31 pg (25-35); MEAN CORPUSCULAR HGB CONC 35 g/dL (31-37); MEAN CORPUSCULAR VOLUME 89 fL (79-100); MONO # 0.2 x10^3/uL (0.0-1.1); MONO % 4 % (0-9); NEUT # 3.8 x10^3uL (1.8-7.7); NEUT % 84 % (31-73); PLATELET COUNT 204 x10^3/uL (140-400); RED BLOOD COUNT 3.59 x10^6/uL (3.50-5.40); RED CELL DISTRIBUTION WIDTH 16.5 % (11.5-14.5); WHITE BLOOD COUNT 4.5 x10^3/uL (4.0-11.0)
[2018-08-20 05:53] LABS: CREATININE 0.6 mg/dL (0.6-1.0); GFR 98.3; PHOSPHORUS 1.5 mg/dL (2.6-4.7); POTASSIUM 3.8 mmol/L (3.5-5.1)
[2018-08-20] MEDS ORDERED: DEXTROSE 50% 25 GM / 50ML DISP.SYRIN. IV PRN (06:30)
--- NOTE | 2018-08-20 07:37 | EKG ---
[facility] [address] [place] [address] Test Date: 2018-08-20 Test Time: 07:32:27 Pat Name: CHELSIE PINEDA Department: Room: [facility] Gender: F Host And Hostess: FUAD : 1945 Requested By: CHELSIE MAYNARD Order Number: [id number] Reading MD: Measurements Intervals [place] Rate: 178 P: NC: QRS: 72 QRSD: 72 T: -105 QT: 266 QTc: 459 Interpretive Statements SUPRAVENTRICULAR TACHYCARDIA LOW LIMB LEAD VOLTAGE QRS(T) CONTOUR ABNORMALITY CONSIDER ANTEROSEPTAL MYOCARDIAL DAMAGE ST & T ABNORMALITY, CONSIDER ANTERIOR ISCHEMIA OR LEFT VENTRICULAR STRAIN INFEROLATERAL ISCHEMIA OR LEFT VENTRICULAR STRAIN ABNORMAL ECG RI6.01 Compared to ECG 05/20/2018 18:50:09 No significant changes
--- NOTE | 2018-08-20 08:00 | NUR ---
During shift change patient became tachycardic and went into SVT while resting quietly in bed. HR sustaining in the 180's. Patient alert and could feel an abnormal sensation in chest. Rapid response called. BRIANNA Addison from ICU at bedside to evaluate patient. Notified Dr. Glass and consulted Dr. Sepulveda (who has seen patient in a past visit for the same thing.) Patient was treated with adenosine and heart rate returned to normal range. Patient transferred to CVC.
--- NOTE | 2018-08-20 08:15 | NUR ---
Rapid Resp note: Called to rm 663 by nursing for new onset tachycardia. Pt known to this nurse. here for ileus with NG tube. Very alert and denies SOA, CP but BP on low side. Fluid bolus started. Dr Dennys Glass paged. Pt was SR earlier in the [facility] around 2AM and went into very regular narrow complex tachy rate 188. Has been seen in past by Dr Sepulveda and has had adenosine in past for SVT. Code cart at bedside. Pt given Adenosine 6mg IV rapid with return of SR. Pt transferred to rm 202 per bed. A&O. Floor will notify family of transfer.
[2018-08-20 08:16] VITALS: BP 118/68
--- NOTE | 2018-08-20 08:38 | PDOC ---
SURGICAL PROGRESS NOTE Subjective Patient resting comfortably denies any abdominal pain. NG tube in place with decreasing NG output Vital Signs Vital Signs Date Time Temp Pulse Resp B/P (MAP) Pulse Ox O2 Delivery O2 Flow Rate FiO2 08/20/18 08:16 97.6 93 18 118/68 (85) 96 Room Air 97.6 I&O Intake and Output 08/20/18 07:00 Intake Total 756 ml Output Total 1200 ml Balance -444 ml Intake Oral 0 ml Other 756 ml Output Urine Total 850 ml Gastric Drainage Total 50 ml Drainage Total 300 ml # Voids 4 PATIENT HAS A BANKS: Yes General: Alert, Oriented X3, Cooperative, No acute distress Abdomen: Normal bowel sounds, Soft, No tenderness, Other (no bowel movement) Labs Laboratory Tests Test 08/19/18 04:30 08/20/18 04:45 White Blood Count 3.9 x10^3/uL (4.0-11.0) 4.5 x10^3/uL (4.0-11.0) Red Blood Count 4.02 x10^6/uL (3.50-5.40) 3.59 x10^6/uL (3.50-5.40) Hemoglobin 11.8 g/dL (12.0-15.5) 11.0 g/dL (12.0-15.5) Hematocrit 35.7 % (36.0-47.0) 31.8 % (36.0-47.0) Mean Corpuscular Volume 89 fL (79-100) 89 fL (79-100) Mean Corpuscular Hemoglobin 29 pg (25-35) 31 pg (25-35) Mean Corpuscular Hemoglobin Concent 33 g/dL (31-37) 35 g/dL (31-37) Red Cell Distribution Width 16.5 % (11.5-14.5) 16.5 % (11.5-14.5) Platelet Count 208 x10^3/uL (140-400) 204 x10^3/uL (140-400) Sodium Level 139 mmol/L (136-145) 139 mmol/L (136-145) Potassium Level 3.3 mmol/L (3.5-5.1) 3.8 mmol/L (3.5-5.1) Chloride Level 106 mmol/L (98-107) 106 mmol/L (98-107) Carbon Dioxide Level 19 mmol/L (21-32) 22 mmol/L (21-32) Anion Gap 14 (6-14) 11 (6-14) Blood Urea Nitrogen 31 mg/dL (7-20) 24 mg/dL (7-20) Creatinine 0.6 mg/dL (0.6-1.0) 0.6 mg/dL (0.6-1.0) Estimated GFR (Cockcroft-Gault) 98.3 98.3 BUN/Creatinine Ratio 52 (6-20) Glucose Level 96 mg/dL (70-99) 252 mg/dL (70-99) Calcium Level 6.4 mg/dL (8.5-10.1) 7.0 mg/dL (8.5-10.1) Phosphorus Level 2.0 mg/dL (2.6-4.7) 1.5 mg/dL (2.6-4.7) Magnesium Level 2.2 mg/dL (1.8-2.4) 2.2 mg/dL (1.8-2.4) Total Bilirubin 0.4 mg/dL (0.2-1.0) Aspartate Amino Transf (AST/SGOT) 26 U/L (15-37) Alanine Aminotransferase (ALT/SGPT) 55 U/L (14-59) Alkaline Phosphatase 172 U/L (46-116) Total Protein 5.4 g/dL (6.4-8.2) Albumin 1.9 g/dL (3.4-5.0) Albumin/Globulin Ratio 0.5 (1.0-1.7) Neutrophils (%) (Auto) 84 % (31-73) Lymphocytes (%) (Auto) 12 % (24-48) Monocytes (%) (Auto) 4 % (0-9) Eosinophils (%) (Auto) 0 % (0-3) Basophils (%) (Auto) 0 % (0-3) Neutrophils # (Auto) 3.8 x10^3uL (1.8-7.7) Lymphocytes # (Auto) 0.5 x10^3/uL (1.0-4.8) Monocytes # (Auto) 0.2 x10^3/uL (0.0-1.1) Eosinophils # (Auto) 0.0 x10^3/uL (0.0-0.7) Basophils # (Auto) 0.0 x10^3/uL (0.0-0.2) Laboratory Tests Test 08/20/18 04:45 White Blood Count 4.5 x10^3/uL (4.0-11.0) Red Blood Count 3.59 x10^6/uL (3.50-5.40) Hemoglobin 11.0 g/dL (12.0-15.5) Hematocrit 31.8 % (36.0-47.0) Mean Corpuscular Volume 89 fL (79-100) Mean Corpuscular Hemoglobin 31 pg (25-35) Mean Corpuscular Hemoglobin Concent 35 g/dL (31-37) Red Cell Distribution Width 16.5 % (11.5-14.5) Platelet Count 204 x10^3/uL (140-400) Neutrophils (%) (Auto) 84 % (31-73) Lymphocytes (%) (Auto) 12 % (24-48) Monocytes (%) (Auto) 4 % (0-9) Eosinophils (%) (Auto) 0 % (0-3) Basophils (%) (Auto) 0 % (0-3) Neutrophils # (Auto) 3.8 x10^3uL (1.8-7.7) Lymphocytes # (Auto) 0.5 x10^3/uL (1.0-4.8) Monocytes # (Auto) 0.2 x10^3/uL (0.0-1.1) Eosinophils # (Auto) 0.0 x10^3/uL (0.0-0.7) Basophils # (Auto) 0.0 x10^3/uL (0.0-0.2) Sodium Level 139 mmol/L (136-145) Potassium Level 3.8 mmol/L (3.5-5.1) Chloride Level 106 mmol/L (98-107) Carbon Dioxide Level 22 mmol/L (21-32) Anion Gap 11 (6-14) Blood Urea Nitrogen 24 mg/dL (7-20) Creatinine 0.6 mg/dL (0.6-1.0) Estimated GFR (Cockcroft-Gault) 98.3 Glucose Level 252 mg/dL (70-99) Calcium Level 7.0 mg/dL (8.5-10.1) Phosphorus Level 1.5 mg/dL (2.6-4.7) Magnesium Level 2.2 mg/dL (1.8-2.4) Problem List Problems Medical Problems: (1) Pneumoperitoneum Status: Acute Assessment/Plan Abdominal films show improvement of bowel gas pattern Small bowel obstruction versus ileus appears to be improving with conservative therapy GALILEO SALAZAR MD Aug 20, 2018 08:38
[2018-08-20] MEDS ORDERED: ADENOSINE 6 MG/2 ML VIAL. IV ONE (10:00)
--- NOTE | 2018-08-20 10:07 | PDOC ---
SUBJECTIVE Subjective Pt went into afib this morning with a heart rate into the 180s. Pt noticed that her heart felt like it was racing, and then says it felt like it was "heavy". She was given adenosine. Heart rate improved. She is feeling better. Denies any chest pain or shortness of breath. Denies abdominal pain, nausea, vomiting OBJECTIVE Vital Signs Vital Signs Date Time Temp Pulse Resp B/P (MAP) Pulse Ox O2 Delivery O2 Flow Rate FiO2 08/20/18 08:16 97.6 93 18 118/68 (85) 96 Room Air 97.6 08/20/18 08:00 Room Air 08/20/18 03:58 97.9 83 18 130/76 (94) 98 Room Air 97.9 08/19/18 23:45 97.5 85 18 134/78 (96) 99 Room Air 97.5 08/19/18 20:00 Room Air 08/19/18 19:45 97.3 89 18 151/93 (112) 99 Room Air 97.3 08/19/18 15:00 97.3 82 16 140/70 (93) 98 Room Air 97.3 08/19/18 11:00 97.5 81 16 123/60 (81) 97 Room Air 97.5 I & O Intake and Output 08/20/18 07:00 Intake Total 756 ml Output Total 1200 ml Balance -444 ml Intake Oral 0 ml Other 756 ml Output Urine Total 850 ml Gastric Drainage Total 50 ml Drainage Total 300 ml # Voids 4 PHYSICAL EXAM Physical Exam GEN: cachetic, NAD, AOx3 HEENT: NG in place, EOMI, no scleral icterus/injection Cardiac: RRR, no M/R/G Lungs: CTAB Ab: soft, non distended, NTTP Ext: 2+ pitting edema LE bilaterally Nuero: CN2-12 GI ASSESSMENT/PLAN Assessment/Plan Pt is a 73yo CF admitted with SBO 1. Small-bowel obstruction- with possible bowel perforation. NG in place. GI and surgery following. Nausea has improved. Pt on TPN. Still has NG output 2. Severe protein malnutrition. 3. Leukopenia. 4. Hyponatremia- resolved 5. Hypomagnesemia. 6. Hypokalemia- replacing 7. 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 Pt on Meropenem currently. COMMENT Lab Laboratory Tests Test 08/20/18 04:45 White Blood Count 4.5 x10^3/uL (4.0-11.0) Red Blood Count 3.59 x10^6/uL (3.50-5.40) Hemoglobin 11.0 g/dL (12.0-15.5) Hematocrit 31.8 % (36.0-47.0) Mean Corpuscular Volume 89 fL (79-100) Mean Corpuscular Hemoglobin 31 pg (25-35) Mean Corpuscular Hemoglobin Concent 35 g/dL (31-37) Red Cell Distribution Width 16.5 % (11.5-14.5) Platelet Count 204 x10^3/uL (140-400) Neutrophils (%) (Auto) 84 % (31-73) Lymphocytes (%) (Auto) 12 % (24-48) Monocytes (%) (Auto) 4 % (0-9) Eosinophils (%) (Auto) 0 % (0-3) Basophils (%) (Auto) 0 % (0-3) Neutrophils # (Auto) 3.8 x10^3uL (1.8-7.7) Lymphocytes # (Auto) 0.5 x10^3/uL (1.0-4.8) Monocytes # (Auto) 0.2 x10^3/uL (0.0-1.1) Eosinophils # (Auto) 0.0 x10^3/uL (0.0-0.7) Basophils # (Auto) 0.0 x10^3/uL (0.0-0.2) Sodium Level 139 mmol/L (136-145) Potassium Level 3.8 mmol/L (3.5-5.1) Chloride Level 106 mmol/L (98-107) Carbon Dioxide Level 22 mmol/L (21-32) Anion Gap 11 (6-14) Blood Urea Nitrogen 24 mg/dL (7-20) Creatinine 0.6 mg/dL (0.6-1.0) Estimated GFR (Cockcroft-Gault) 98.3 Glucose Level 252 mg/dL (70-99) Calcium Level 7.0 mg/dL (8.5-10.1) Phosphorus Level 1.5 mg/dL (2.6-4.7) Magnesium Level 2.2 mg/dL (1.8-2.4) Nutrition Consultation Dietary Evaluation: Recommendations by RD: Increase Calorie Intake, Protein supplementation, PPN/TPN Comments: REC TPN, mvi, vit c Expected Outcomes/Goals: to meet > 75% est nutr needs via TPN Interpretation of weight loss: >10% in 6 months Malnutrition Findings: Muscle Mass (Severe): Severe Depletion Weight Status: Underweight YOLI GUERRERO MD Aug 20, 2018 10:07
--- NOTE | 2018-08-20 10:42 | PDOC ---
Infectious Disease Note Subjective Subjective Rapid response called earlier for tachycardia, s/p adenosine and IVF bolus Transferred to telemetry floor Says she felt her heart race but is better now Has a little bit of a sore throat from NGT Happy abdomen is less distended Some abdominal cramps off and on No fevers last 24 hours TPN ROS ROS per HPI otherwise neg Vital Sign Vital Signs Vital Signs Date Time Temp Pulse Resp B/P (MAP) Pulse Ox O2 Delivery O2 Flow Rate FiO2 08/20/18 08:16 97.6 93 18 118/68 (85) 96 Room Air 97.6 Physical Exam PHYSICAL EXAM GENERAL: Propped up in bed, alert, cachetic, smiling HEENT: Oral cavity moist, NGT to suction NECK: has a neck pillow LUNGS: Decreased breath sounds at the bases. HEART: S1, S2, regular ABDOMEN: Nondistended, soft, BS present EXTREMITIES: 1+ edema BLE, DERMATOLOGIC: Warm, dry, no generalized rash NEUROLOGY: Alert, responds appropriately LUE-PICC clean Labs Lab Laboratory Tests Test 08/20/18 04:45 White Blood Count 4.5 x10^3/uL (4.0-11.0) Red Blood Count 3.59 x10^6/uL (3.50-5.40) Hemoglobin 11.0 g/dL (12.0-15.5) Hematocrit 31.8 % (36.0-47.0) Mean Corpuscular Volume 89 fL (79-100) Mean Corpuscular Hemoglobin 31 pg (25-35) Mean Corpuscular Hemoglobin Concent 35 g/dL (31-37) Red Cell Distribution Width 16.5 % (11.5-14.5) Platelet Count 204 x10^3/uL (140-400) Neutrophils (%) (Auto) 84 % (31-73) Lymphocytes (%) (Auto) 12 % (24-48) Monocytes (%) (Auto) 4 % (0-9) Eosinophils (%) (Auto) 0 % (0-3) Basophils (%) (Auto) 0 % (0-3) Neutrophils # (Auto) 3.8 x10^3uL (1.8-7.7) Lymphocytes # (Auto) 0.5 x10^3/uL (1.0-4.8) Monocytes # (Auto) 0.2 x10^3/uL (0.0-1.1) Eosinophils # (Auto) 0.0 x10^3/uL (0.0-0.7) Basophils # (Auto) 0.0 x10^3/uL (0.0-0.2) Sodium Level 139 mmol/L (136-145) Potassium Level 3.8 mmol/L (3.5-5.1) Chloride Level 106 mmol/L (98-107) Carbon Dioxide Level 22 mmol/L (21-32) Anion Gap 11 (6-14) Blood Urea Nitrogen 24 mg/dL (7-20) Creatinine 0.6 mg/dL (0.6-1.0) Estimated GFR (Cockcroft-Gault) 98.3 Glucose Level 252 mg/dL (70-99) Calcium Level 7.0 mg/dL (8.5-10.1) Phosphorus Level 1.5 mg/dL (2.6-4.7) Magnesium Level 2.2 mg/dL (1.8-2.4) Micro 08/18/18 Blood Culture - Preliminary, Resulted NO GROWTH AFTER 2 DAY Objective Assessment Cavitary mass in 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 Multiple cavitary nodules in the lung. AFB cultures negative in 03/2018. Ongoing subjective weight loss, failure to thrive, nausea, vomiting, weakness, cachexia. Recurrent small bowel obstruction. Abnormal CT with questionable pneumoperitoneum. Protein-calorie malnutrition. History of rectal cancer, last colonoscopy 03/2014. History of irritable bowel syndrome. Bandemia/leukopenia Plan Plan of Care Continue Merrem (since 08/17) NGTD Monitor labs Supportive care D/w Attending Co-Sign Attending Co-Sign The patient was seen and interviewed as well as examined at the bedside. The chart was reviewed. The case was discussed. Agree with the plan of care. VINOD ACUÑA APRN Aug 20, 2018 10:42 ELADIO DWYER MD Aug 20, 2018 15:08
[2018-08-20 11:00] VITALS: BP 129/71
[2018-08-20] MEDS: TPN PER PHARMACY MC PRN (12:47)
--- NOTE | 2018-08-20 12:48 | NUR ---
Pharmacy TPN Dosing Note S: CHELSIE PINEDA is a 73 year old F Currently receiving Central Continuous TPN started 08/18/18 B:Pertinent PMH: SBO Height: 5 feet, 3 inches Weight: 44.5 kg Current diet: NPO LABS: Sodium: 139 Potassium: 3.8 Chloride: 106 Calcium: 7.0 Corrected Calcium: 8.68 Magnesium: 2.2 CO2: 22 SCr: 0.6 Glucose: 252, 152 Albumin: 1.9 AST: 26 ALT: 55 TPN FORMULA: TPN TYPE: Central Continuous AMINO ACIDS: 60 gm DEXTROSE: 195 gm LIPIDS: 20 gm SODIUM CHLORIDE: 90 mEq POTASSIUM CHLORIDE: 60 mEq POTASSIUM PHOSPHATE: 25 mmol MAGNESIUM: 10 mEq CALCIUM: 10 mEq MULTIPLE VITAMIN: 10 ml TRACE ELEMENTS: 1 ml TPN PLAN: -Serum phos still low, give NaPhos 30 mmol outside of TPN. Increase KPhos in TPN to 25 mmol/day. Patient had SVT episode this AM. -Reduce calcium in TPN due to need for more phos - can replete calcium outside of TPN if needed. -Monitor blood glucose values closely, AM value above goal range. -BMP, mag, phos tomorrow. R: Continue TPN @ current rate and with above changes. Will monitor electrolytes, glucose, and tolerance to TPN. MIGNON SANCHEZ [facility], 08/20/18 [id number]
[2018-08-20] MEDS ORDERED: SODIUM PHOSPHATE 30 MMOL in IV DEXTROSE 5% 250 ML IV ONE (13:00)
--- NOTE | 2018-08-20 13:02 | PDOC ---
PULMONARY PROGRESS NOTES Subjective developed SVT last night better Vitals Vital Signs Date Time Temp Pulse Resp B/P (MAP) Pulse Ox O2 Delivery O2 Flow Rate FiO2 08/20/18 11:00 98.7 68 18 129/71 (90) 96 Room Air 98.7 General: Alert, No acute distress Lungs: Clear Cardiovascular: S1, S2 Abdomen: Soft, Non-tender Extremities: No Edema Labs Laboratory Tests Test 08/19/18 04:30 08/20/18 04:45 08/20/18 12:03 White Blood Count 3.9 x10^3/uL (4.0-11.0) 4.5 x10^3/uL (4.0-11.0) Red Blood Count 4.02 x10^6/uL (3.50-5.40) 3.59 x10^6/uL (3.50-5.40) Hemoglobin 11.8 g/dL (12.0-15.5) 11.0 g/dL (12.0-15.5) Hematocrit 35.7 % (36.0-47.0) 31.8 % (36.0-47.0) Mean Corpuscular Volume 89 fL (79-100) 89 fL (79-100) Mean Corpuscular Hemoglobin 29 pg (25-35) 31 pg (25-35) Mean Corpuscular Hemoglobin Concent 33 g/dL (31-37) 35 g/dL (31-37) Red Cell Distribution Width 16.5 % (11.5-14.5) 16.5 % (11.5-14.5) Platelet Count 208 x10^3/uL (140-400) 204 x10^3/uL (140-400) Sodium Level 139 mmol/L (136-145) 139 mmol/L (136-145) Potassium Level 3.3 mmol/L (3.5-5.1) 3.8 mmol/L (3.5-5.1) Chloride Level 106 mmol/L (98-107) 106 mmol/L (98-107) Carbon Dioxide Level 19 mmol/L (21-32) 22 mmol/L (21-32) Anion Gap 14 (6-14) 11 (6-14) Blood Urea Nitrogen 31 mg/dL (7-20) 24 mg/dL (7-20) Creatinine 0.6 mg/dL (0.6-1.0) 0.6 mg/dL (0.6-1.0) Estimated GFR (Cockcroft-Gault) 98.3 98.3 BUN/Creatinine Ratio 52 (6-20) Glucose Level 96 mg/dL (70-99) 252 mg/dL (70-99) Calcium Level 6.4 mg/dL (8.5-10.1) 7.0 mg/dL (8.5-10.1) Phosphorus Level 2.0 mg/dL (2.6-4.7) 1.5 mg/dL (2.6-4.7) Magnesium Level 2.2 mg/dL (1.8-2.4) 2.2 mg/dL (1.8-2.4) Total Bilirubin 0.4 mg/dL (0.2-1.0) Aspartate Amino Transf (AST/SGOT) 26 U/L (15-37) Alanine Aminotransferase (ALT/SGPT) 55 U/L (14-59) Alkaline Phosphatase 172 U/L (46-116) Total Protein 5.4 g/dL (6.4-8.2) Albumin 1.9 g/dL (3.4-5.0) Albumin/Globulin Ratio 0.5 (1.0-1.7) Neutrophils (%) (Auto) 84 % (31-73) Lymphocytes (%) (Auto) 12 % (24-48) Monocytes (%) (Auto) 4 % (0-9) Eosinophils (%) (Auto) 0 % (0-3) Basophils (%) (Auto) 0 % (0-3) Neutrophils # (Auto) 3.8 x10^3uL (1.8-7.7) Lymphocytes # (Auto) 0.5 x10^3/uL (1.0-4.8) Monocytes # (Auto) 0.2 x10^3/uL (0.0-1.1) Eosinophils # (Auto) 0.0 x10^3/uL (0.0-0.7) Basophils # (Auto) 0.0 x10^3/uL (0.0-0.2) Glucose (Fingerstick) 152 mg/dL (70-99) Laboratory Tests Test 08/20/18 04:45 08/20/18 12:03 White Blood Count 4.5 x10^3/uL (4.0-11.0) Red Blood Count 3.59 x10^6/uL (3.50-5.40) Hemoglobin 11.0 g/dL (12.0-15.5) Hematocrit 31.8 % (36.0-47.0) Mean Corpuscular Volume 89 fL (79-100) Mean Corpuscular Hemoglobin 31 pg (25-35) Mean Corpuscular Hemoglobin Concent 35 g/dL (31-37) Red Cell Distribution Width 16.5 % (11.5-14.5) Platelet Count 204 x10^3/uL (140-400) Neutrophils (%) (Auto) 84 % (31-73) Lymphocytes (%) (Auto) 12 % (24-48) Monocytes (%) (Auto) 4 % (0-9) Eosinophils (%) (Auto) 0 % (0-3) Basophils (%) (Auto) 0 % (0-3) Neutrophils # (Auto) 3.8 x10^3uL (1.8-7.7) Lymphocytes # (Auto) 0.5 x10^3/uL (1.0-4.8) Monocytes # (Auto) 0.2 x10^3/uL (0.0-1.1) Eosinophils # (Auto) 0.0 x10^3/uL (0.0-0.7) Basophils # (Auto) 0.0 x10^3/uL (0.0-0.2) Sodium Level 139 mmol/L (136-145) Potassium Level 3.8 mmol/L (3.5-5.1) Chloride Level 106 mmol/L (98-107) Carbon Dioxide Level 22 mmol/L (21-32) Anion Gap 11 (6-14) Blood Urea Nitrogen 24 mg/dL (7-20) Creatinine 0.6 mg/dL (0.6-1.0) Estimated GFR (Cockcroft-Gault) 98.3 Glucose Level 252 mg/dL (70-99) Calcium Level 7.0 mg/dL (8.5-10.1) Phosphorus Level 1.5 mg/dL (2.6-4.7) Magnesium Level 2.2 mg/dL (1.8-2.4) Glucose (Fingerstick) 152 mg/dL (70-99) Medications Active Scripts Medications Dose Route/Sig Max Daily Dose Days Date Category Avelox (Moxifloxacin Hcl) 400 Mg Tablet 1 Tab PO DAILY 05/17/18 Rx Diphenoxylate-Atropine Tablet (Diphenoxylate Hcl/Atropine) 1 Each Tablet 1 Tab PO PRN QID PRN 30 04/21/18 Rx Famotidine 20 Mg Tablet 20 Mg PO QHS 60 04/19/18 Rx Aspirin Ec (Aspirin) 81 Mg Tablet.dr 81 Mg PO DAILYWBKFT 30 04/19/18 Rx Toprol Xl (Metoprolol Succinate) 50 Mg Tab.er.24h 50 Mg PO HS 30 04/19/18 Rx Hydrocodone-Apap 5-325 (Hydrocodone Bit/Acetaminophen) 1 Tab Tablet 1 Tab PO PRN Q4HRS PRN 03/09/18 Rx Multivitamins (Multivitamin) 1 Each Tablet 1 Each PO DAILY 03/07/18 Reported Vitamin D3 (Cholecalciferol (Vitamin D3)) 1,000 Unit Tablet 1,000 Unit PO DAILY 03/07/18 Reported Impression . 1. Abnormal CT chest with a cavitary mass in the right chest, likely abscess. This has an air fluid level. This is considerably reduced in size compared to the 03/2018 CT. D/W RADIOLOGY. Location of recent right lung abscess slightly inferior to previous one and as such new abscess. There is new pneumonia in RUL and tiny thin cavitary nodules in left lung. She has distended stomach She likely has ongoing / recurrent aspiration form bowel obstruction contributing to recurrent lung abscess. 2. Ongoing weakness, subjective weight loss, failure to thrive and now comes in with nausea, vomiting. These symptoms are likely related to a GI pathology including small-bowel obstruction and possible pneumoperitoneum. General Surgery is following. 3. No significant history of tobacco use. 4. Coffee ground NG aspirate 5. Pneumoperitonium Bronch cultures from Mar 2018 BRONCH CULTURE Final Final report BRONCH RES 1 Final Citrobacter freundii 4+ ANTIMICROBIAL SUSCEPTIBILITY Final Comment S = Susceptible; I = Intermediate; R = Resistant P = Positive; N = Negative MICS are expressed in micrograms per mL Antibiotic RSLT#1 RSLT#2 RSLT#3 RSLT#4 Amoxicillin/Clavulanic Acid R>=32 Cefazolin R>=64 Cefepime S<=0.12 Ceftriaxone R>=64 Cefuroxime R>=64 Ciprofloxacin S<=0.25 Gentamicin S<=1 Imipenem S<=0.25 Levofloxacin S<=0.12 Meropenem S<=0.25 Nitrofurantoin S<=16 Tetracycline S<=1 Tobramycin S<=1 Trimethoprim/Sulfa S<=20 Performed at: DA - [facility] [address], [place], [place] [id number] [employer] Machine: KAILASH Zarate MD, Phone: [phone] Plan . 1. At this point, I would continue to treat with present antibiotic, meropenem. 2. Would hold off any further pulmonary invasive testing such as bronchoscopy or CT-guided aspiration. Repeat CT chest in next month would be reasonable. I have reviewed old Bronch cultures from Mar 2018, grew Citrobactor, S to Avelox 3. Continue supportive care. 4. Follow General Surgery's recommendations. 5. Consulted Infectious Disease. d/w DR OSORIO 6. We will follow along with you. Discussed with RN. 7. GI input reviewed 8. SVT , resolved D/W FAMILY IN DETAIL 08/19 DEDE MCNULTY MD Aug 20, 2018 13:02
--- NOTE | 2018-08-20 14:11 | PDOC2 ---
CONSULT Date of Consult Date of Consult DATE: 08/20/18 TIME: 14:05 Reason for Consult Reason for Consult: SVT Referring Physician Referring Physician: Dr. Donaldson Identification/Chief Complaint Chief Complaint Abdominal discomfort Source Source: Chart review, Patient History of Present Illness Reason for Visit: The patient is a 73-year-old female who was admitted approximately a week ago and has been treated for small bowel obstruction. She has an NG tube in place and has had no oral medications since admission. Last evening she went into a PSVT. This was treated with adenosine with significant improvement in her rate. This morning she is comfortable. Her rate is 98 on monitoring. She denies any chest pain or lightheadedness. She does report a history of PSVT and possible paroxysmal atrial fibrillation. She has no history of coronary artery disease or heart failure. Past Medical History Cardiovascular: AFIB, HTN, Hyperlipidemia, Other Pulmonary: No pertinent hx CENTRAL NERVOUS SYSTEM: Other GI: GERD, Irritable bowel disease Heme/Onc: Anemia NOS, Cancer Hepatobiliary: No pertinent hx Psych: No pertinent hx Musculoskeletal: Osteoarthritis Rheumatologic: No pertinent hx Infectious disease: No pertinent hx, Other Renal/: No pertinent hx Endocrine: Osteopenia Past Surgical History Past Surgical History: Cholecystectomy, Tonsillectomy, Colon Resection, Other Family History Family History: Coronary Artery Disease, Heart Disease Social History Quit ALCOHOL: none Drugs: None Lives: with Family Current Problem List Problem List Problems Medical Problems: (1) Pneumoperitoneum Status: Acute Current Medications Current Medications Current Medications Sodium Chloride 1,000 ml @ 100 mls/hr Q10H IV Last administered on 08/17/18at 06:55; Start 08/17/18 at 06:30; Stop 08/17/18 at 16:29; Status DC Ondansetron HCl (Zofran) 4 mg 1X ONCE IV Last administered on 08/17/18at 06:55; Start 08/17/18 at 06:30; Stop 08/17/18 at 06:31; Status DC Iohexol (Omnipaque 240 Mg/ml) 30 ml 1X ONCE PO Last administered on 08/17/18at 07:15; Start 08/17/18 at 07:15; Stop 08/17/18 at 07:16; Status DC Iohexol (Omnipaque 300 Mg/ml) 75 ml 1X ONCE IV Last administered on 08/17/18at 08:11; Start 08/17/18 at 07:15; Stop 08/17/18 at 07:16; Status DC Info (CONTRAST GIVEN -- Rx MONITORING) 1 each PRN DAILY PRN MC SEE COMMENTS; Start 08/17/18 at 07:15; Stop 08/19/18 at 07:14; Status DC Sodium Chloride 1,000 ml @ 1,000 mls/hr 1X ONCE IV Last administered on 08/17/18at 07:45; Start 08/17/18 at 07:45; Stop 08/17/18 at 08:44; Status DC Magnesium Sulfate/ Dextrose 100 ml @ 100 mls/hr 1X ONCE IV Last administered on 08/17/18at 14:55; Start 08/17/18 at 07:45; Stop 08/17/18 at 08:44; Status DC Potassium Chloride/Water 100 ml @ 100 mls/hr Q1H IV Last administered on 08/17/18at 09:23; Start 08/17/18 at 07:45; Stop 08/17/18 at 09:44; Status DC Ertapenem 50 ml @ 100 mls/hr 1X ONCE IV ; Start 08/17/18 at 09:15; Stop 08/17/18 at 09:44; Status UNV Meropenem 500 mg/ Sodium Chloride 50 ml @ 100 mls/hr 1X ONCE IV Last administered on 08/17/18at 10:53; Start 08/17/18 at 09:30; Stop 08/17/18 at 09:59; Status DC Ondansetron HCl (Zofran) 4 mg PRN Q8HRS PRN IV NAUSEA/VOMITING; Start 08/17/18 at 10:00; Stop 08/18/18 at 09:59; Status DC Morphine Sulfate (Morphine Sulfate) 4 mg PRN Q2HR PRN IV PAIN; Start 08/17/18 at 10:00; Stop 08/18/18 at 09:59; Status DC Meropenem 500 mg/ Sodium Chloride 50 ml @ 100 mls/hr Q8HRS IV Last administered on 08/20/18at 05:11; Start 08/17/18 at 14:00 Amino Acids/ Glycerin/ Electrolytes 1,000 ml @ 80 mls/hr [id number] IV Last administered on 08/17/18at 20:57; Start 08/17/18 at 20:15; Stop 08/19/18 at 10:57; Status DC Potassium Chloride/Sodium Chloride 1,000 ml @ 75 mls/hr 1X ONCE IV Last administered on 08/18/18at 11:26; Start 08/18/18 at 07:45; Stop 08/18/18 at 21:04; Status DC Magnesium Sulfate 50 ml @ 25 mls/hr 1X ONCE IV Last administered on 08/18/18at 13:50; Start 08/18/18 at 09:00; Stop 08/18/18 at 10:59; Status DC Famotidine (Pepcid Vial) 20 mg QHS IVP Last administered on 08/19/18at 21:42; Start 08/18/18 at 21:00 Info (Tpn Per Pharmacy) 1 each PRN DAILY PRN MC SEE COMMENTS Last administered on 08/20/18at 12:47; Start 08/18/18 at 13:15 Sodium Chloride 90 meq/Potassium Chloride 50 meq/ Potassium Phosphate 13.6 mmol/Magnesium Sulfate 10 meq/ Calcium Gluconate 10 meq/ Multivitamins 10 ml/Chromium/ Copper/Manganese/ Seleni/Zn 1 ml/ Total Parenteral Nutrition/Amino Acids/Dextrose/ Fat Emulsion Intravenous 1,512 ml @ 63 mls/hr TPN CONT IV Last administered on 08/19/18at 03:19; Start 08/18/18 at 22:00; Stop 08/19/18 at 21:59; Status DC Potassium Phosphate 10 mmol/ Dextrose 103.3333 ml @ 51.667 m... Q2H IV Last administered on 08/19/18at 12:06; Start 08/19/18 at 12:00; Stop 08/19/18 at 15:59; Status DC Calcium Gluconate 1000 mg/Dextrose 110 ml @ 220 mls/hr 1X ONCE IV Last administered on 08/19/18at 15:26; Start 08/19/18 at 15:00; Stop 08/19/18 at 15:29; Status DC Furosemide (Lasix) 20 mg 1X ONCE IVP Last administered on 08/19/18at 13:45; Start 08/19/18 at 13:15; Stop 08/19/18 at 13:16; Status DC Sodium Chloride 90 meq/Potassium Chloride 60 meq/ Potassium Phosphate 17 mmol/ Magnesium Sulfate 10 meq/Calcium Gluconate 15 meq/ Multivitamins 10 ml/Chromium/ Copper/Manganese/ Seleni/Zn 1 ml/ Total Parenteral Nutrition/Amino Acids/Dextrose/ Fat Emulsion Intravenous 1,512 ml @ 63 mls/hr TPN CONT IV Last administered on 08/19/18at 21:46; Start 08/19/18 at 22:00; Stop 08/20/18 at 21:59 Dextrose (Dextrose 50%-Water Syringe) 12.5 gm PRN Q15MIN PRN IV SEE COMMENTS; Start 08/20/18 at 06:30 Adenosine (Adenocard) 6 mg 1X ONCE IV Last administered on 08/20/18at 07:45; Start 08/20/18 at 10:00; Stop 08/20/18 at 10:08; Status DC Sodium Phosphate 30 mmol/Dextrose 260 ml @ 65 mls/hr 1X ONCE IV Last administered on 08/20/18at 13:04; Start 08/20/18 at 13:00; Stop 08/20/18 at 16:59 Sodium Chloride 90 meq/Potassium Chloride 60 meq/ Potassium Phosphate 25 mmol/ Magnesium Sulfate 10 meq/Calcium Gluconate 10 meq/ Multivitamins 10 ml/Chromium/ Copper/Manganese/ Seleni/Zn 1 ml/ Total Parenteral Nutrition/Amino Acids/Dextrose/ Fat Emulsion Intravenous 1,512 ml @ 63 mls/hr TPN CONT IV ; Start 08/20/18 at 22:00; Stop 08/21/18 at 21:59 Active Scripts Active Avelox (Moxifloxacin Hcl) 400 Mg Tablet 1 Tab PO DAILY Diphenoxylate-Atropine Tablet (Diphenoxylate Hcl/Atropine) 1 Each Tablet 1 Tab PO PRN QID PRN 30 Days Famotidine 20 Mg Tablet 20 Mg PO QHS 60 Days Aspirin Ec (Aspirin) 81 Mg Tablet.dr 81 Mg PO DAILYWBKFT 30 Days Toprol Xl (Metoprolol Succinate) 50 Mg Tab.er.24h 50 Mg PO HS 30 Days Hydrocodone-Apap 5-325 (Hydrocodone Bit/Acetaminophen) 1 Tab Tablet 1 Tab PO PRN Q4HRS PRN Reported Multivitamins (Multivitamin) 1 Each Tablet 1 Each PO DAILY Vitamin D3 (Cholecalciferol (Vitamin D3)) 1,000 Unit Tablet 1,000 Unit PO DAILY Allergies Allergies: Coded Allergies: latex (Verified Allergy, Intermediate, EYE SWELLING; RASH, 03/08/18) codeine (Verified Adverse Reaction, Intermediate, Makes her feel uncomfortable, 03/08/18) ROS General: YES: Fatigue Gastrointestinal: Yes Other (mild abdominal discomfort.) Physical Exam General: mild distress HEENT: Atraumatic Lungs: Clear to auscultation Heart: Regular rate Abdomen: Other (mild generalized abdominal discomfort) Vitals VITALS Vital Signs Date Time Temp Pulse Resp B/P (MAP) Pulse Ox O2 Delivery O2 Flow Rate FiO2 08/20/18 11:00 98.7 68 18 129/71 (90) 96 Room Air 98.7 Labs Labs Laboratory Tests Test 08/19/18 04:30 08/20/18 04:45 08/20/18 12:03 White Blood Count 3.9 x10^3/uL (4.0-11.0) 4.5 x10^3/uL (4.0-11.0) Red Blood Count 4.02 x10^6/uL (3.50-5.40) 3.59 x10^6/uL (3.50-5.40) Hemoglobin 11.8 g/dL (12.0-15.5) 11.0 g/dL (12.0-15.5) Hematocrit 35.7 % (36.0-47.0) 31.8 % (36.0-47.0) Mean Corpuscular Volume 89 fL (79-100) 89 fL (79-100) Mean Corpuscular Hemoglobin 29 pg (25-35) 31 pg (25-35) Mean Corpuscular Hemoglobin Concent 33 g/dL (31-37) 35 g/dL (31-37) Red Cell Distribution Width 16.5 % (11.5-14.5) 16.5 % (11.5-14.5) Platelet Count 208 x10^3/uL (140-400) 204 x10^3/uL (140-400) Sodium Level 139 mmol/L (136-145) 139 mmol/L (136-145) Potassium Level 3.3 mmol/L (3.5-5.1) 3.8 mmol/L (3.5-5.1) Chloride Level 106 mmol/L (98-107) 106 mmol/L (98-107) Carbon Dioxide Level 19 mmol/L (21-32) 22 mmol/L (21-32) Anion Gap 14 (6-14) 11 (6-14) Blood Urea Nitrogen 31 mg/dL (7-20) 24 mg/dL (7-20) Creatinine 0.6 mg/dL (0.6-1.0) 0.6 mg/dL (0.6-1.0) Estimated GFR (Cockcroft-Gault) 98.3 98.3 BUN/Creatinine Ratio 52 (6-20) Glucose Level 96 mg/dL (70-99) 252 mg/dL (70-99) Calcium Level 6.4 mg/dL (8.5-10.1) 7.0 mg/dL (8.5-10.1) Phosphorus Level 2.0 mg/dL (2.6-4.7) 1.5 mg/dL (2.6-4.7) Magnesium Level 2.2 mg/dL (1.8-2.4) 2.2 mg/dL (1.8-2.4) Total Bilirubin 0.4 mg/dL (0.2-1.0) Aspartate Amino Transf (AST/SGOT) 26 U/L (15-37) Alanine Aminotransferase (ALT/SGPT) 55 U/L (14-59) Alkaline Phosphatase 172 U/L (46-116) Total Protein 5.4 g/dL (6.4-8.2) Albumin 1.9 g/dL (3.4-5.0) Albumin/Globulin Ratio 0.5 (1.0-1.7) Neutrophils (%) (Auto) 84 % (31-73) Lymphocytes (%) (Auto) 12 % (24-48) Monocytes (%) (Auto) 4 % (0-9) Eosinophils (%) (Auto) 0 % (0-3) Basophils (%) (Auto) 0 % (0-3) Neutrophils # (Auto) 3.8 x10^3uL (1.8-7.7) Lymphocytes # (Auto) 0.5 x10^3/uL (1.0-4.8) Monocytes # (Auto) 0.2 x10^3/uL (0.0-1.1) Eosinophils # (Auto) 0.0 x10^3/uL (0.0-0.7) Basophils # (Auto) 0.0 x10^3/uL (0.0-0.2) Glucose (Fingerstick) 152 mg/dL (70-99) Laboratory Tests Test 08/20/18 04:45 08/20/18 12:03 White Blood Count 4.5 x10^3/uL (4.0-11.0) Red Blood Count 3.59 x10^6/uL (3.50-5.40) Hemoglobin 11.0 g/dL (12.0-15.5) Hematocrit 31.8 % (36.0-47.0) Mean Corpuscular Volume 89 fL (79-100) Mean Corpuscular Hemoglobin 31 pg (25-35) Mean Corpuscular Hemoglobin Concent 35 g/dL (31-37) Red Cell Distribution Width 16.5 % (11.5-14.5) Platelet Count 204 x10^3/uL (140-400) Neutrophils (%) (Auto) 84 % (31-73) Lymphocytes (%) (Auto) 12 % (24-48) Monocytes (%) (Auto) 4 % (0-9) Eosinophils (%) (Auto) 0 % (0-3) Basophils (%) (Auto) 0 % (0-3) Neutrophils # (Auto) 3.8 x10^3uL (1.8-7.7) Lymphocytes # (Auto) 0.5 x10^3/uL (1.0-4.8) Monocytes # (Auto) 0.2 x10^3/uL (0.0-1.1) Eosinophils # (Auto) 0.0 x10^3/uL (0.0-0.7) Basophils # (Auto) 0.0 x10^3/uL (0.0-0.2) Sodium Level 139 mmol/L (136-145) Potassium Level 3.8 mmol/L (3.5-5.1) Chloride Level 106 mmol/L (98-107) Carbon Dioxide Level 22 mmol/L (21-32) Anion Gap 11 (6-14) Blood Urea Nitrogen 24 mg/dL (7-20) Creatinine 0.6 mg/dL (0.6-1.0) Estimated GFR (Cockcroft-Gault) 98.3 Glucose Level 252 mg/dL (70-99) Calcium Level 7.0 mg/dL (8.5-10.1) Phosphorus Level 1.5 mg/dL (2.6-4.7) Magnesium Level 2.2 mg/dL (1.8-2.4) Glucose (Fingerstick) 152 mg/dL (70-99) Assessment/Plan Assessment/Plan 1. Paroxysmal supraventricular ventricular tachycardia. Rate is significantly improved on post adenosine. Patient is unable to take oral medications. We'll continue to monitor. If needed we'll continue treatment with IV beta blockers until the patient can take her oral medications again. 2. Small bowel obstruction. Continues to be nothing by mouth with an NG tube. Followed by GI and surgery. 3. Possible pulmonary abscess. Followed by the pulmonary service and ID. 4. Hypertension. Reasonable control. Continue to monitor and adjust medications as needed. 5. History of hyperlipidemia. Thank you for allowing us to participate in the care of your patient. STEPHANIE CHINCHILLA MD Aug 20, 2018 14:11
[2018-08-20 15:00] VITALS: BP 121/57
[2018-08-20 19:35] VITALS: BP 121/69
[2018-08-20] MEDS: FAMOTIDINE 20 MG/2 ML VIAL IVP SCH (20:32)
[2018-08-20] MEDS ORDERED: DEXTROSE 70% IV SCH ×10 (22:00)
[2018-08-20] MEDS ORDERED: AMINO ACID IV SCH ×10 (22:00)
[2018-08-20] MEDS ORDERED: [UNRECOGNIZED DRUG - OTHER] IV SCH ×10 (22:00)
[2018-08-20] MEDS ORDERED: TOTAL PARENTERAL NUTRITION IV SCH ×10 (22:00)
[2018-08-20 23:05] VITALS: BP 115/69
[2018-08-21 02:30] VITALS: BP 121/71
[2018-08-21] MEDS: MEROPENEM 500 MG in IV NORMAL SALINE 50ML 50 ML IV SCH ×3 (05:27→22:02)
[2018-08-21 07:00] VITALS: BP 124/73
[2018-08-21 07:24] LABS: ALBUMIN 1.8 g/dL (3.4-5.0); ALBUMIN/GLOBULIN RATIO 0.6 (1.0-1.7); CREATININE 0.4 mg/dL (0.6-1.0); GFR 156.9; MAGNESIUM 1.7 mg/dL (1.8-2.4); PHOSPHORUS 1.7 mg/dL (2.6-4.7); POTASSIUM 3.8 mmol/L (3.5-5.1); TOTAL BILIRUBIN 0.3 mg/dL (0.2-1.0); TOTAL PROTEIN 4.8 g/dL (6.4-8.2)
--- NOTE | 2018-08-21 08:12 | PDOC ---
Infectious Disease Note Subjective Subjective Rapid response called for tachycardia on 08/20, s/p adenosine and IVF bolus Transferred to telemetry floor No BM yet Has a little bit of a sore throat from NGT Happy abdomen is less distended Some abdominal cramps off and on No fevers TPN ROS ROS o/w neg Vital Sign Vital Signs Vital Signs Date Time Temp Pulse Resp B/P (MAP) Pulse Ox O2 Delivery O2 Flow Rate FiO2 08/21/18 07:00 97.3 91 18 124/73 (90) 96 Room Air 97.3 Physical Exam PHYSICAL EXAM GENERAL: Propped up in bed, alert, cachetic, smiling HEENT: Oral cavity moist, NGT to suction NECK: has a neck pillow LUNGS: Decreased breath sounds at the bases. HEART: S1, S2, regular ABDOMEN: Nondistended, soft, BS present EXTREMITIES: 1+ edema BLE, DERMATOLOGIC: Warm, dry, no generalized rash NEUROLOGY: Alert, responds appropriately LUE-PICC clean Labs Lab Laboratory Tests Test 08/20/18 12:03 08/20/18 18:04 08/20/18 23:08 08/21/18 06:01 Glucose (Fingerstick) 152 mg/dL (70-99) 160 mg/dL (70-99) 132 mg/dL (70-99) 91 mg/dL (70-99) Test 08/21/18 06:20 Sodium Level 141 mmol/L (136-145) Potassium Level 3.8 mmol/L (3.5-5.1) Chloride Level 104 mmol/L (98-107) Carbon Dioxide Level 28 mmol/L (21-32) Anion Gap 9 (6-14) Blood Urea Nitrogen 16 mg/dL (7-20) Creatinine 0.4 mg/dL (0.6-1.0) Estimated GFR (Cockcroft-Gault) 156.9 BUN/Creatinine Ratio 40 (6-20) Glucose Level 98 mg/dL (70-99) Calcium Level 7.0 mg/dL (8.5-10.1) Phosphorus Level 1.7 mg/dL (2.6-4.7) Magnesium Level 1.7 mg/dL (1.8-2.4) Total Bilirubin 0.3 mg/dL (0.2-1.0) Aspartate Amino Transf (AST/SGOT) 61 U/L (15-37) Alanine Aminotransferase (ALT/SGPT) 66 U/L (14-59) Alkaline Phosphatase 192 U/L (46-116) Total Protein 4.8 g/dL (6.4-8.2) Albumin 1.8 g/dL (3.4-5.0) Albumin/Globulin Ratio 0.6 (1.0-1.7) Micro Microbiology 08/18/18 Blood Culture - Preliminary, Resulted NO GROWTH AFTER 3 DAYS Objective Assessment Cavitary mass in 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 Multiple cavitary nodules in the lung. AFB cultures negative in 03/2018. SVT Ongoing subjective weight loss, failure to thrive, nausea, vomiting, weakness, cachexia. Recurrent small bowel obstruction. Abnormal CT with questionable pneumoperitoneum. Protein-calorie malnutrition. History of rectal cancer, last colonoscopy 03/2014. History of irritable bowel syndrome. Bandemia/leukopenia - better Mild increase in LFTS - likely TPN Plan Plan of Care Continue Merrem (since 08/17) BC NGTD Monitor labs in am Supportive care D/w /nursing ELADIO DWYER MD Aug 21, 2018 08:11
--- NOTE | 2018-08-21 09:25 | PDOC ---
PULMONARY PROGRESS NOTES Subjective PT NOT MORE SOA Vitals Vital Signs Date Time Temp Pulse Resp B/P (MAP) Pulse Ox O2 Delivery O2 Flow Rate FiO2 08/21/18 08:00 Room Air 08/21/18 07:00 97.3 91 18 124/73 (90) 96 97.3 ROS: No Nausea, No Chest Pain, No Abdominal Pain, No Increase Cough General: Alert, No acute distress Lungs: Clear Cardiovascular: S1, S2 Abdomen: Soft, Non-tender Extremities: No Edema Labs Laboratory Tests Test 08/20/18 04:45 08/20/18 12:03 08/20/18 18:04 08/20/18 23:08 White Blood Count 4.5 x10^3/uL (4.0-11.0) Red Blood Count 3.59 x10^6/uL (3.50-5.40) Hemoglobin 11.0 g/dL (12.0-15.5) Hematocrit 31.8 % (36.0-47.0) Mean Corpuscular Volume 89 fL (79-100) Mean Corpuscular Hemoglobin 31 pg (25-35) Mean Corpuscular Hemoglobin Concent 35 g/dL (31-37) Red Cell Distribution Width 16.5 % (11.5-14.5) Platelet Count 204 x10^3/uL (140-400) Neutrophils (%) (Auto) 84 % (31-73) Lymphocytes (%) (Auto) 12 % (24-48) Monocytes (%) (Auto) 4 % (0-9) Eosinophils (%) (Auto) 0 % (0-3) Basophils (%) (Auto) 0 % (0-3) Neutrophils # (Auto) 3.8 x10^3uL (1.8-7.7) Lymphocytes # (Auto) 0.5 x10^3/uL (1.0-4.8) Monocytes # (Auto) 0.2 x10^3/uL (0.0-1.1) Eosinophils # (Auto) 0.0 x10^3/uL (0.0-0.7) Basophils # (Auto) 0.0 x10^3/uL (0.0-0.2) Sodium Level 139 mmol/L (136-145) Potassium Level 3.8 mmol/L (3.5-5.1) Chloride Level 106 mmol/L (98-107) Carbon Dioxide Level 22 mmol/L (21-32) Anion Gap 11 (6-14) Blood Urea Nitrogen 24 mg/dL (7-20) Creatinine 0.6 mg/dL (0.6-1.0) Estimated GFR (Cockcroft-Gault) 98.3 Glucose Level 252 mg/dL (70-99) Calcium Level 7.0 mg/dL (8.5-10.1) Phosphorus Level 1.5 mg/dL (2.6-4.7) Magnesium Level 2.2 mg/dL (1.8-2.4) Glucose (Fingerstick) 152 mg/dL (70-99) 160 mg/dL (70-99) 132 mg/dL (70-99) Test 08/21/18 06:01 08/21/18 06:20 Glucose (Fingerstick) 91 mg/dL (70-99) Sodium Level 141 mmol/L (136-145) Potassium Level 3.8 mmol/L (3.5-5.1) Chloride Level 104 mmol/L (98-107) Carbon Dioxide Level 28 mmol/L (21-32) Anion Gap 9 (6-14) Blood Urea Nitrogen 16 mg/dL (7-20) Creatinine 0.4 mg/dL (0.6-1.0) Estimated GFR (Cockcroft-Gault) 156.9 BUN/Creatinine Ratio 40 (6-20) Glucose Level 98 mg/dL (70-99) Calcium Level 7.0 mg/dL (8.5-10.1) Phosphorus Level 1.7 mg/dL (2.6-4.7) Magnesium Level 1.7 mg/dL (1.8-2.4) Total Bilirubin 0.3 mg/dL (0.2-1.0) Aspartate Amino Transf (AST/SGOT) 61 U/L (15-37) Alanine Aminotransferase (ALT/SGPT) 66 U/L (14-59) Alkaline Phosphatase 192 U/L (46-116) Total Protein 4.8 g/dL (6.4-8.2) Albumin 1.8 g/dL (3.4-5.0) Albumin/Globulin Ratio 0.6 (1.0-1.7) Laboratory Tests Test 08/20/18 12:03 08/20/18 18:04 08/20/18 23:08 08/21/18 06:01 Glucose (Fingerstick) 152 mg/dL (70-99) 160 mg/dL (70-99) 132 mg/dL (70-99) 91 mg/dL (70-99) Test 08/21/18 06:20 Sodium Level 141 mmol/L (136-145) Potassium Level 3.8 mmol/L (3.5-5.1) Chloride Level 104 mmol/L (98-107) Carbon Dioxide Level 28 mmol/L (21-32) Anion Gap 9 (6-14) Blood Urea Nitrogen 16 mg/dL (7-20) Creatinine 0.4 mg/dL (0.6-1.0) Estimated GFR (Cockcroft-Gault) 156.9 BUN/Creatinine Ratio 40 (6-20) Glucose Level 98 mg/dL (70-99) Calcium Level 7.0 mg/dL (8.5-10.1) Phosphorus Level 1.7 mg/dL (2.6-4.7) Magnesium Level 1.7 mg/dL (1.8-2.4) Total Bilirubin 0.3 mg/dL (0.2-1.0) Aspartate Amino Transf (AST/SGOT) 61 U/L (15-37) Alanine Aminotransferase (ALT/SGPT) 66 U/L (14-59) Alkaline Phosphatase 192 U/L (46-116) Total Protein 4.8 g/dL (6.4-8.2) Albumin 1.8 g/dL (3.4-5.0) Albumin/Globulin Ratio 0.6 (1.0-1.7) Medications Active Scripts Medications Dose Route/Sig Max Daily Dose Days Date Category Avelox (Moxifloxacin Hcl) 400 Mg Tablet 1 Tab PO DAILY 05/17/18 Rx Diphenoxylate-Atropine Tablet (Diphenoxylate Hcl/Atropine) 1 Each Tablet 1 Tab PO PRN QID PRN 30 04/21/18 Rx Famotidine 20 Mg Tablet 20 Mg PO QHS 60 04/19/18 Rx Aspirin Ec (Aspirin) 81 Mg Tablet. 81 Mg PO DAILYWBKFT 30 04/19/18 Rx Toprol Xl (Metoprolol Succinate) 50 Mg Tab.er.24h 50 Mg PO HS 30 04/19/18 Rx Hydrocodone-Apap 5-325 (Hydrocodone Bit/Acetaminophen) 1 Tab Tablet 1 Tab PO PRN Q4HRS PRN 03/09/18 Rx Multivitamins (Multivitamin) 1 Each Tablet 1 Each PO DAILY 03/07/18 Reported Vitamin D3 (Cholecalciferol (Vitamin D3)) 1,000 Unit Tablet 1,000 Unit PO DAILY 03/07/18 Reported Impression . 1. Abnormal CT chest with a cavitary mass in the right chest, likely abscess. This is considerably reduced in size compared to the 03/2018 CT. D/W RADIOLOGY. Location of recent right lung abscess slightly inferior to previous one and as such new abscess. There is new pneumonia in RUL and tiny thin cavitary nodules in left lung. She has distended stomach She likely has ongoing / recurrent aspiration form bowel obstruction contributing to recurrent lung abscess. 2. MALNUTRITION 3. No significant history of tobacco use. 4. Coffee ground NG aspirate 5. Pneumoperitonium 6. RECURRENT SBO Bronch cultures from Mar 2018 BRONCH CULTURE Final Final report BRONCH RES 1 Final Citrobacter freundii 4+ ANTIMICROBIAL SUSCEPTIBILITY Final Comment S = Susceptible; I = Intermediate; R = Resistant P = Positive; N = Negative MICS are expressed in micrograms per mL Antibiotic RSLT#1 RSLT#2 RSLT#3 RSLT#4 Amoxicillin/Clavulanic Acid R>=32 Cefazolin R>=64 Cefepime S<=0.12 Ceftriaxone R>=64 Cefuroxime R>=64 Ciprofloxacin S<=0.25 Gentamicin S<=1 Imipenem S<=0.25 Levofloxacin S<=0.12 Meropenem S<=0.25 Nitrofurantoin S<=16 Tetracycline S<=1 Tobramycin S<=1 Trimethoprim/Sulfa S<=20 Performed at: DA - [facility] [address], [place], [place] [id number] Fundraising Coordinator: KAILASH Zarate MD, Phone: [phone] Plan . FOLLOW SURGERY AND DI INPUT WILL CONTINUE ANTIBX FOLLOW ID INPUT 1. At this point, I would continue to treat with present antibiotic, meropenem. 2. Would hold off any further pulmonary invasive testing such as bronchoscopy or CT-guided aspiration. Repeat CT chest in next month would be reasonable. I have reviewed old Bronch cultures from Mar 2018, grew Citrobactor, S to Avelox 3. Continue supportive care. 4. Follow General Surgery's recommendations. 5. Consulted Infectious Disease. d/w DR OSORIO 6. We will follow along with you. Discussed with RN. 7. GI input reviewed 8. SVT , resolved ARTURO ORTEGA MD Aug 21, 2018 09:25
--- NOTE | 2018-08-21 09:34 | PDOC ---
AMARILIS ABDI COOLER SERVICER 08/21/18 0934: SURGICAL PROGRESS NOTE Subjective feels better no emesis, no flatus or stool since admission no bloating Vital Signs Vital Signs Date Time Temp Pulse Resp B/P (MAP) Pulse Ox O2 Delivery O2 Flow Rate FiO2 08/21/18 08:00 Room Air 08/21/18 07:00 97.3 91 18 124/73 (90) 96 97.3 I&O Intake and Output 08/21/18 06:59 Intake Total 1676 ml Output Total 2100 ml Balance -424 ml Intake Oral 0 ml IV Total 1676 ml Output Urine Total 1950 ml Gastric Drainage Total 150 ml General: Alert, Oriented X3, Cooperative, No acute distress HEENT: Other (ng billious ) Abdomen: Soft, No tenderness, Other (ND) Labs Laboratory Tests Test 08/20/18 04:45 08/20/18 12:03 08/20/18 18:04 08/20/18 23:08 White Blood Count 4.5 x10^3/uL (4.0-11.0) Red Blood Count 3.59 x10^6/uL (3.50-5.40) Hemoglobin 11.0 g/dL (12.0-15.5) Hematocrit 31.8 % (36.0-47.0) Mean Corpuscular Volume 89 fL (79-100) Mean Corpuscular Hemoglobin 31 pg (25-35) Mean Corpuscular Hemoglobin Concent 35 g/dL (31-37) Red Cell Distribution Width 16.5 % (11.5-14.5) Platelet Count 204 x10^3/uL (140-400) Neutrophils (%) (Auto) 84 % (31-73) Lymphocytes (%) (Auto) 12 % (24-48) Monocytes (%) (Auto) 4 % (0-9) Eosinophils (%) (Auto) 0 % (0-3) Basophils (%) (Auto) 0 % (0-3) Neutrophils # (Auto) 3.8 x10^3uL (1.8-7.7) Lymphocytes # (Auto) 0.5 x10^3/uL (1.0-4.8) Monocytes # (Auto) 0.2 x10^3/uL (0.0-1.1) Eosinophils # (Auto) 0.0 x10^3/uL (0.0-0.7) Basophils # (Auto) 0.0 x10^3/uL (0.0-0.2) Sodium Level 139 mmol/L (136-145) Potassium Level 3.8 mmol/L (3.5-5.1) Chloride Level 106 mmol/L (98-107) Carbon Dioxide Level 22 mmol/L (21-32) Anion Gap 11 (6-14) Blood Urea Nitrogen 24 mg/dL (7-20) Creatinine 0.6 mg/dL (0.6-1.0) Estimated GFR (Cockcroft-Gault) 98.3 Glucose Level 252 mg/dL (70-99) Calcium Level 7.0 mg/dL (8.5-10.1) Phosphorus Level 1.5 mg/dL (2.6-4.7) Magnesium Level 2.2 mg/dL (1.8-2.4) Glucose (Fingerstick) 152 mg/dL (70-99) 160 mg/dL (70-99) 132 mg/dL (70-99) Test 08/21/18 06:01 08/21/18 06:20 Glucose (Fingerstick) 91 mg/dL (70-99) Sodium Level 141 mmol/L (136-145) Potassium Level 3.8 mmol/L (3.5-5.1) Chloride Level 104 mmol/L (98-107) Carbon Dioxide Level 28 mmol/L (21-32) Anion Gap 9 (6-14) Blood Urea Nitrogen 16 mg/dL (7-20) Creatinine 0.4 mg/dL (0.6-1.0) Estimated GFR (Cockcroft-Gault) 156.9 BUN/Creatinine Ratio 40 (6-20) Glucose Level 98 mg/dL (70-99) Calcium Level 7.0 mg/dL (8.5-10.1) Phosphorus Level 1.7 mg/dL (2.6-4.7) Magnesium Level 1.7 mg/dL (1.8-2.4) Total Bilirubin 0.3 mg/dL (0.2-1.0) Aspartate Amino Transf (AST/SGOT) 61 U/L (15-37) Alanine Aminotransferase (ALT/SGPT) 66 U/L (14-59) Alkaline Phosphatase 192 U/L (46-116) Total Protein 4.8 g/dL (6.4-8.2) Albumin 1.8 g/dL (3.4-5.0) Albumin/Globulin Ratio 0.6 (1.0-1.7) Laboratory Tests Test 08/20/18 12:03 08/20/18 18:04 08/20/18 23:08 08/21/18 06:01 Glucose (Fingerstick) 152 mg/dL (70-99) 160 mg/dL (70-99) 132 mg/dL (70-99) 91 mg/dL (70-99) Test 08/21/18 06:20 Sodium Level 141 mmol/L (136-145) Potassium Level 3.8 mmol/L (3.5-5.1) Chloride Level 104 mmol/L (98-107) Carbon Dioxide Level 28 mmol/L (21-32) Anion Gap 9 (6-14) Blood Urea Nitrogen 16 mg/dL (7-20) Creatinine 0.4 mg/dL (0.6-1.0) Estimated GFR (Cockcroft-Gault) 156.9 BUN/Creatinine Ratio 40 (6-20) Glucose Level 98 mg/dL (70-99) Calcium Level 7.0 mg/dL (8.5-10.1) Phosphorus Level 1.7 mg/dL (2.6-4.7) Magnesium Level 1.7 mg/dL (1.8-2.4) Total Bilirubin 0.3 mg/dL (0.2-1.0) Aspartate Amino Transf (AST/SGOT) 61 U/L (15-37) Alanine Aminotransferase (ALT/SGPT) 66 U/L (14-59) Alkaline Phosphatase 192 U/L (46-116) Total Protein 4.8 g/dL (6.4-8.2) Albumin 1.8 g/dL (3.4-5.0) Albumin/Globulin Ratio 0.6 (1.0-1.7) Problem List Problems Medical Problems: (1) Pneumoperitoneum Status: Acute Assessment/Plan d/w pt SBFT--she is very hesitant, last time--significant diarrhea after and did not tolerate contrast well ng output less, xrays from 08/19 nonspecific bowel patter with gas and stool in colon--d/w Dr Gary--will try clamping NG, suppository today EVANS GARY MD 08/21/18 1143: SURGICAL PROGRESS NOTE Assessment/Plan Agree with above; would recommend a small bowel series to assess if mechanical obstruction; pt refusing at this time; plan as above AMARILIS ABDI APRN Aug 21, 2018 09:34 EVANS GARY MD Aug 21, 2018 11:43
[2018-08-21] MEDS ORDERED: BISACODYL 10 MG SUPP.RECT. PR ONE (09:45)
[2018-08-21 11:00] VITALS: BP 129/73
--- NOTE | 2018-08-21 11:49 | EKG ---
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
--- NOTE | 2018-08-21 11:55 | PDOC ---
Subjective: Subjective: Doesn't want SBFT. No flatus, no pain. Objective: Objective: Transferred to cardiac floor over the weekend w/ SVT - better now. Reviewed surgery note - plans to clamp NGT and try suppository. On TPN. Vital Signs: Vital Signs Date Time Temp Pulse Resp B/P (MAP) Pulse Ox O2 Delivery O2 Flow Rate FiO2 08/21/18 11:00 97.4 95 18 129/73 (91) 98 Room Air 97.4 Labs: Laboratory Tests Test 08/20/18 12:03 08/20/18 18:04 08/20/18 23:08 08/21/18 06:01 Glucose (Fingerstick) 152 mg/dL 160 mg/dL 132 mg/dL 91 mg/dL Test 08/21/18 06:20 08/21/18 11:48 Sodium Level 141 mmol/L Potassium Level 3.8 mmol/L Chloride Level 104 mmol/L Carbon Dioxide Level 28 mmol/L Anion Gap 9 Blood Urea Nitrogen 16 mg/dL Creatinine 0.4 mg/dL Estimated GFR (Cockcroft-Gault) 156.9 BUN/Creatinine Ratio 40 Glucose Level 98 mg/dL Calcium Level 7.0 mg/dL Phosphorus Level 1.7 mg/dL Magnesium Level 1.7 mg/dL Total Bilirubin 0.3 mg/dL Aspartate Amino Transf (AST/SGOT) 61 U/L Alanine Aminotransferase (ALT/SGPT) 66 U/L Alkaline Phosphatase 192 U/L Total Protein 4.8 g/dL Albumin 1.8 g/dL Albumin/Globulin Ratio 0.6 Glucose (Fingerstick) 107 mg/dL Imaging: AAS 08/19 The cardiomediastinal silhouette grossly appears unremarkable. The feeding tube, left-sided PICC line in place. Cavitary lesion/abscess identified in the right lower lobe of the lung with patchy airspace opacities identified in the bilateral lungs similar to prior exam. No evidence of free air identified in the abdomen. Nonspecific bowel gas pattern.. Feces and gas noted in the colon. PE: GEN: NAD, was resting LUNGS: CTAB HEART: RRR ABD: quiet, non-tender, soft NEURO/PSYCH: A & O 3 A/P: Recurrent SBO, abnormal chest imaging/pulm abscess H/o GERD, hiatal hernia, rectal cancer, IBS SVT -- Await response to NG clamp and suppository. Note slight drift in Hgb w/o concern for bleeding - Hgb is not outside her baseline and BUN remains WNL. 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 MARK UP Aug 21, 2018 11:55
--- NOTE | 2018-08-21 12:48 | NUR ---
SS following up with discharge planning. PT/OT recommended fci unit. SS met with pt to discuss discharge planning and fci unit. Pt agreeable to fci unit at discharge but wanted to discuss options with her spouse prior to deciding. SS provided pt with a list of options and pamphlets of fci units. SS will follow up with pt later today.
[2018-08-21] MEDS: TPN PER PHARMACY MC PRN (13:50)
[2018-08-21] MEDS ORDERED: POTASSIUM PHOSPHATE DIBASIC 15 MMOL in IV NORMAL SALINE 250ML 250 ML IV ONE (15:00)
[2018-08-21 15:07] VITALS: BP 119/71
--- NOTE | 2018-08-21 15:14 | NUR ---
Pharmacy TPN Dosing Note S: CHELSIE PINEDA is a 73 year old F Currently receiving Central Continuous TPN started 08/18/18 B:Pertinent PMH: SBO Height: 5 feet, 3 inches Weight: 45.904176 kg Current diet: NPO LABS: Sodium: 141 Potassium: 3.8 Chloride: 104 Calcium: 7.0 Corrected Calcium: 8.76 Magnesium: 1.7 CO2: 28 SCr: 0.4 Glucose: 98 Albumin: 1.8 AST: 61 ALT: 65 TPN FORMULA: TPN TYPE: Central Continuous AMINO ACIDS: 60 gm DEXTROSE: 195 gm LIPIDS: 20 gm SODIUM CHLORIDE: 90 mEq SODIUM ACETATE: mEq SODIUM PHOSPHATE: mmol POTASSIUM CHLORIDE: 60 mEq POTASSIUM ACETATE: mEq POTASSIUM PHOSPHATE: 25 mmol MAGNESIUM: 13 mEq CALCIUM: 10 mEq INSULIN: units MULTIPLE VITAMIN: 10 ml TRACE ELEMENTS: 1ML ml(s) TPN PLAN: Serum phos still low, give NaPhos 15 mmol outside of TPN. Increase KPhos in TPN to 25 mmol/day. BMP, mag, phos tomorrow. R: Continue TPN AT 63ML/HR Will monitor electrolytes, glucose, and tolerance to TPN. ZENIA RODARTE [facility], 08/21/18 [id number]
--- NOTE | 2018-08-21 17:04 | PDOC ---
PROGRESS NOTES Subjective Subjective Patient slowly improving w/o complaints today. Still no BM or Flatus. NG in place suction off Objective Objective Vital Signs Date Time Temp Pulse Resp B/P (MAP) Pulse Ox O2 Delivery O2 Flow Rate FiO2 08/21/18 15:07 98.2 104 18 119/71 (87) 93 Room Air 98.2 Intake and Output 08/21/18 07:00 Intake Total 1676 ml Output Total 2100 ml Balance -424 ml Intake Oral 0 ml IV Total 1676 ml Output Urine Total 1950 ml Gastric Drainage Total 150 ml Physical Exam Abdomen: Normal bowel sounds Heart: Regular rate Extremities: No edema General: Alert Lungs: Clear to auscultation Assessment Assessment Problems Medical Problems: (1) Pneumoperitoneum Status: Acute 1. Functional Small-bowel obstruction 2. Severe protein malnutrition. 3. Leukopenia. 4. Hyponatremia- resolved 5. Hypomagnesemia. 6. Hypokalemia- replacing 7. 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 Pt on Meropenem currently 8. SVT Plan Plan of Care Continue surgery management Possible D/C NG if residual output ok Await bowel function Continue TPN Increase activity Comment Review of Relevant I have reviewed the following items jackie (where applicable) has been applied. Labs Laboratory Tests Test 08/20/18 04:45 08/20/18 12:03 08/20/18 18:04 08/20/18 23:08 White Blood Count 4.5 x10^3/uL (4.0-11.0) Red Blood Count 3.59 x10^6/uL (3.50-5.40) Hemoglobin 11.0 g/dL (12.0-15.5) Hematocrit 31.8 % (36.0-47.0) Mean Corpuscular Volume 89 fL (79-100) Mean Corpuscular Hemoglobin 31 pg (25-35) Mean Corpuscular Hemoglobin Concent 35 g/dL (31-37) Red Cell Distribution Width 16.5 % (11.5-14.5) Platelet Count 204 x10^3/uL (140-400) Neutrophils (%) (Auto) 84 % (31-73) Lymphocytes (%) (Auto) 12 % (24-48) Monocytes (%) (Auto) 4 % (0-9) Eosinophils (%) (Auto) 0 % (0-3) Basophils (%) (Auto) 0 % (0-3) Neutrophils # (Auto) 3.8 x10^3uL (1.8-7.7) Lymphocytes # (Auto) 0.5 x10^3/uL (1.0-4.8) Monocytes # (Auto) 0.2 x10^3/uL (0.0-1.1) Eosinophils # (Auto) 0.0 x10^3/uL (0.0-0.7) Basophils # (Auto) 0.0 x10^3/uL (0.0-0.2) Sodium Level 139 mmol/L (136-145) Potassium Level 3.8 mmol/L (3.5-5.1) Chloride Level 106 mmol/L (98-107) Carbon Dioxide Level 22 mmol/L (21-32) Anion Gap 11 (6-14) Blood Urea Nitrogen 24 mg/dL (7-20) Creatinine 0.6 mg/dL (0.6-1.0) Estimated GFR (Cockcroft-Gault) 98.3 Glucose Level 252 mg/dL (70-99) Calcium Level 7.0 mg/dL (8.5-10.1) Phosphorus Level 1.5 mg/dL (2.6-4.7) Magnesium Level 2.2 mg/dL (1.8-2.4) Glucose (Fingerstick) 152 mg/dL (70-99) 160 mg/dL (70-99) 132 mg/dL (70-99) Test 08/21/18 06:01 08/21/18 06:20 08/21/18 11:48 Glucose (Fingerstick) 91 mg/dL (70-99) 107 mg/dL (70-99) Sodium Level 141 mmol/L (136-145) Potassium Level 3.8 mmol/L (3.5-5.1) Chloride Level 104 mmol/L (98-107) Carbon Dioxide Level 28 mmol/L (21-32) Anion Gap 9 (6-14) Blood Urea Nitrogen 16 mg/dL (7-20) Creatinine 0.4 mg/dL (0.6-1.0) Estimated GFR (Cockcroft-Gault) 156.9 BUN/Creatinine Ratio 40 (6-20) Glucose Level 98 mg/dL (70-99) Calcium Level 7.0 mg/dL (8.5-10.1) Phosphorus Level 1.7 mg/dL (2.6-4.7) Magnesium Level 1.7 mg/dL (1.8-2.4) Total Bilirubin 0.3 mg/dL (0.2-1.0) Aspartate Amino Transf (AST/SGOT) 61 U/L (15-37) Alanine Aminotransferase (ALT/SGPT) 66 U/L (14-59) Alkaline Phosphatase 192 U/L (46-116) Total Protein 4.8 g/dL (6.4-8.2) Albumin 1.8 g/dL (3.4-5.0) Albumin/Globulin Ratio 0.6 (1.0-1.7) Laboratory Tests Test 08/20/18 18:04 08/20/18 23:08 08/21/18 06:01 08/21/18 06:20 Glucose (Fingerstick) 160 mg/dL (70-99) 132 mg/dL (70-99) 91 mg/dL (70-99) Sodium Level 141 mmol/L (136-145) Potassium Level 3.8 mmol/L (3.5-5.1) Chloride Level 104 mmol/L (98-107) Carbon Dioxide Level 28 mmol/L (21-32) Anion Gap 9 (6-14) Blood Urea Nitrogen 16 mg/dL (7-20) Creatinine 0.4 mg/dL (0.6-1.0) Estimated GFR (Cockcroft-Gault) 156.9 BUN/Creatinine Ratio 40 (6-20) Glucose Level 98 mg/dL (70-99) Calcium Level 7.0 mg/dL (8.5-10.1) Phosphorus Level 1.7 mg/dL (2.6-4.7) Magnesium Level 1.7 mg/dL (1.8-2.4) Total Bilirubin 0.3 mg/dL (0.2-1.0) Aspartate Amino Transf (AST/SGOT) 61 U/L (15-37) Alanine Aminotransferase (ALT/SGPT) 66 U/L (14-59) Alkaline Phosphatase 192 U/L (46-116) Total Protein 4.8 g/dL (6.4-8.2) Albumin 1.8 g/dL (3.4-5.0) Albumin/Globulin Ratio 0.6 (1.0-1.7) Test 08/21/18 11:48 Glucose (Fingerstick) 107 mg/dL (70-99) Microbiology 08/18/18 Blood Culture - Preliminary, Resulted NO GROWTH AFTER 3 DAYS Medications Current Medications Sodium Chloride 1,000 ml @ 100 mls/hr Q10H IV Last administered on 08/17/18at 06:55; Start 08/17/18 at 06:30; Stop 08/17/18 at 16:29; Status DC Ondansetron HCl (Zofran) 4 mg 1X ONCE IV Last administered on 08/17/18at 06:55; Start 08/17/18 at 06:30; Stop 08/17/18 at 06:31; Status DC Iohexol (Omnipaque 240 Mg/ml) 30 ml 1X ONCE PO Last administered on 08/17/18at 07:15; Start 08/17/18 at 07:15; Stop 08/17/18 at 07:16; Status DC Iohexol (Omnipaque 300 Mg/ml) 75 ml 1X ONCE IV Last administered on 08/17/18at 08:11; Start 08/17/18 at 07:15; Stop 08/17/18 at 07:16; Status DC Info (CONTRAST GIVEN -- Rx MONITORING) 1 each PRN DAILY PRN MC SEE COMMENTS; Start 08/17/18 at 07:15; Stop 08/19/18 at 07:14; Status DC Sodium Chloride 1,000 ml @ 1,000 mls/hr 1X ONCE IV Last administered on 08/17/18at 07:45; Start 08/17/18 at 07:45; Stop 08/17/18 at 08:44; Status DC Magnesium Sulfate/ Dextrose 100 ml @ 100 mls/hr 1X ONCE IV Last administered on 08/17/18at 14:55; Start 08/17/18 at 07:45; Stop 08/17/18 at 08:44; Status DC Potassium Chloride/Water 100 ml @ 100 mls/hr Q1H IV Last administered on 08/17/18at 09:23; Start 08/17/18 at 07:45; Stop 08/17/18 at 09:44; Status DC Ertapenem 50 ml @ 100 mls/hr 1X ONCE IV ; Start 08/17/18 at 09:15; Stop 08/17/18 at 09:44; Status UNV Meropenem 500 mg/ Sodium Chloride 50 ml @ 100 mls/hr 1X ONCE IV Last administered on 08/17/18at 10:53; Start 08/17/18 at 09:30; Stop 08/17/18 at 09:59; Status DC Ondansetron HCl (Zofran) 4 mg PRN Q8HRS PRN IV NAUSEA/VOMITING; Start 08/17/18 at 10:00; Stop 08/18/18 at 09:59; Status DC Morphine Sulfate (Morphine Sulfate) 4 mg PRN Q2HR PRN IV PAIN; Start 08/17/18 at 10:00; Stop 08/18/18 at 09:59; Status DC Meropenem 500 mg/ Sodium Chloride 50 ml @ 100 mls/hr Q8HRS IV Last administered on 08/21/18at 14:28; Start 08/17/18 at 14:00 Amino Acids/ Glycerin/ Electrolytes 1,000 ml @ 80 mls/hr [id number] IV Last administered on 08/17/18at 20:57; Start 08/17/18 at 20:15; Stop 08/19/18 at 10:57; Status DC Potassium Chloride/Sodium Chloride 1,000 ml @ 75 mls/hr 1X ONCE IV Last administered on 08/18/18at 11:26; Start 08/18/18 at 07:45; Stop 08/18/18 at 21:04; Status DC Magnesium Sulfate 50 ml @ 25 mls/hr 1X ONCE IV Last administered on 08/18/18at 13:50; Start 08/18/18 at 09:00; Stop 08/18/18 at 10:59; Status DC Famotidine (Pepcid Vial) 20 mg QHS IVP Last administered on 08/20/18at 20:32; Start 08/18/18 at 21:00 Info (Tpn Per Pharmacy) 1 each PRN DAILY PRN MC SEE COMMENTS Last administered on 08/21/18at 13:50; Start 08/18/18 at 13:15 Sodium Chloride 90 meq/Potassium Chloride 50 meq/ Potassium Phosphate 13.6 mmol/Magnesium Sulfate 10 meq/ Calcium Gluconate 10 meq/ Multivitamins 10 ml/Chromium/ Copper/Manganese/ Seleni/Zn 1 ml/ Total Parenteral Nutrition/Amino Acids/Dextrose/ Fat Emulsion Intravenous 1,512 ml @ 63 mls/hr TPN CONT IV Last administered on 08/19/18at 03:19; Start 08/18/18 at 22:00; Stop 08/19/18 at 21 :59; Status DC Potassium Phosphate 10 mmol/ Dextrose 103.3333 ml @ 51.667 m... Q2H IV Last administered on 08/19/18at 12:06; Start 08/19/18 at 12:00; Stop 08/19/18 at 15:59; Status DC Calcium Gluconate 1000 mg/Dextrose 110 ml @ 220 mls/hr 1X ONCE IV Last administered on 08/19/18at 15:26; Start 08/19/18 at 15:00; Stop 08/19/18 at 15:29; Status DC Furosemide (Lasix) 20 mg 1X ONCE IVP Last administered on 08/19/18at 13:45; Start 08/19/18 at 13:15; Stop 08/19/18 at 13:16; Status DC Sodium Chloride 90 meq/Potassium Chloride 60 meq/ Potassium Phosphate 17 mmol/ Magnesium Sulfate 10 meq/Calcium Gluconate 15 meq/ Multivitamins 10 ml/Chromium/ Copper/Manganese/ Seleni/Zn 1 ml/ Total Parenteral Nutrition/Amino Acids/Dextrose/ Fat Emulsion Intravenous 1,512 ml @ 63 mls/hr TPN CONT IV Last administered on 08/19/18at 21:46; Start 08/19/18 at 22:00; Stop 08/20/18 at 21:59; Status DC Dextrose (Dextrose 50%-Water Syringe) 12.5 gm PRN Q15MIN PRN IV SEE COMMENTS; Start 08/20/18 at 06:30 Adenosine (Adenocard) 6 mg 1X ONCE IV Last administered on 08/20/18at 07:45; Start 08/20/18 at 10:00; Stop 08/20/18 at 10:08; Status DC Sodium Phosphate 30 mmol/Dextrose 260 ml @ 65 mls/hr 1X ONCE IV Last administered on 08/20/18at 13:04; Start 08/20/18 at 13:00; Stop 08/20/18 at 16:59; Status DC Sodium Chloride 90 meq/Potassium Chloride 60 meq/ Potassium Phosphate 25 mmol/ Magnesium Sulfate 10 meq/Calcium Gluconate 10 meq/ Multivitamins 10 ml/Chromium/ Copper/Manganese/ Seleni/Zn 1 ml/ Total Parenteral Nutrition/Amino Acids/Dextrose/ Fat Emulsion Intravenous 1,512 ml @ 63 mls/hr TPN CONT IV Last administered on 08/20/18at 20:32; Start 08/20/18 at 22:00; Stop 08/21/18 at 21: 59 Bisacodyl (Dulcolax Supp) 10 mg 1X ONCE OH Last administered on 08/21/18at 11:14; Start 08/21/18 at 09:45; Stop 08/21/18 at 09:46; Status DC Potassium Phosphate 15 mmol/ Sodium Chloride 255 ml @ 127.5 mls/ hr 1X ONCE IV ; Start 08/21/18 at 15:00; Stop 08/21/18 at 16:59 Sodium Chloride 90 meq/Potassium Chloride 60 meq/ Potassium Phosphate 25 mmol/ Magnesium Sulfate 13 meq/Calcium Gluconate 10 meq/ Multivitamins 10 ml/Chromium/ Copper/Manganese/ Seleni/Zn 1 ml/ Total Parenteral Nutrition/Amino Acids/Dextros e/ Fat Emulsion Intravenous 1,512 ml @ 63 mls/hr TPN CONT IV ; Start 08/21/18 at 22:00; Stop 08/22/18 at 21:59 Active Scripts Active Avelox (Moxifloxacin Hcl) 400 Mg Tablet 1 Tab PO DAILY Diphenoxylate-Atropine Tablet (Diphenoxylate Hcl/Atropine) 1 Each Tablet 1 Tab PO PRN QID PRN 30 Days Famotidine 20 Mg Tablet 20 Mg PO QHS 60 Days Aspirin Ec (Aspirin) 81 Mg Tablet.dr 81 Mg PO DAILYWBKFT 30 Days Toprol Xl (Metoprolol Succinate) 50 Mg Tab.er.24h 50 Mg PO HS 30 Days Hydrocodone-Apap 5-325 (Hydrocodone Bit/Acetaminophen) 1 Tab Tablet 1 Tab PO PRN Q4HRS PRN Reported Multivitamins (Multivitamin) 1 Each Tablet 1 Each PO DAILY Vitamin D3 (Cholecalciferol (Vitamin D3)) 1,000 Unit Tablet 1,000 Unit PO DAILY Vitals/I & O Vital Sign - Last 24 Hours 08/20/18 08/20/18 08/20/18 08/21/18 19:20 19:35 23:05 02:30 Temp 97.8 97.8 97.5 97.8 97.8 97.5 Pulse 98 95 93 Resp 18 18 18 B/P (MAP) 121/69 (86) 115/69 (84) 121/71 (88) Pulse Ox 97 97 98 O2 Delivery Room Air Room Air Room Air Room Air 08/21/18 08/21/18 08/21/18 08/21/18 07:00 08:00 11:00 15:07 Temp 97.3 97.4 98.2 97.3 97.4 98.2 Pulse 91 95 104 Resp 18 18 18 B/P (MAP) 124/73 (90) 129/73 (91) 119/71 (87) Pulse Ox 96 98 93 O2 Delivery Room Air Room Air Room Air Room Air Intake and Output 08/20/18 08/20/18 08/21/18 15:00 23:00 07:00 Intake Total 50 ml 806 ml 820 ml Output Total 450 ml 1150 ml 500 ml Balance -400 ml -344 ml 320 ml Nutrition Consultation Dietary Evaluation: Recommendations by RD: Increase Calorie Intake, Protein supplementation, PPN/TPN Comments: Continue w/TPN per current order for nutrition needs REC Vit C, MVI for wound healing as able Advance diet as able to regular, note multiple food intolerances Expected Outcomes/Goals: to meet > 75% est nutr needs via TPN - met, goal ongoing Interpretation of weight loss: >10% in 6 months Malnutrition Findings: Muscle Mass (Severe): Severe Depletion Weight Status: Underweight ALLYN PATE MD Aug 21, 2018 17:04
--- NOTE | 2018-08-21 17:28 | PDOC ---
PROGRESS NOTES Subjective Subjective Patient seen and examined Objective Objective Vital Signs Date Time Temp Pulse Resp B/P (MAP) Pulse Ox O2 Delivery O2 Flow Rate FiO2 08/21/18 15:07 98.2 104 18 119/71 (87) 93 Room Air 98.2 Intake and Output 08/21/18 07:00 Intake Total 1676 ml Output Total 2100 ml Balance -424 ml Intake Oral 0 ml IV Total 1676 ml Output Urine Total 1950 ml Gastric Drainage Total 150 ml Physical Exam Abdomen: Other (decreased bowel sounds) Heart: Regular rate General: mild distress Lungs: Other (slightly decreased breath sounds) Assessment Assessment Problems Medical Problems: (1) Pneumoperitoneum Status: Acute 1. Paroxysmal supraventricular ventricular tachycardia. Treated with adenosine over the weekend. Has converted to sinus rhythm. We will use IV beta blockers as needed while the patient is still npo. 2. Small bowel obstruction. Continues to be npo with an NG tube. Followed by GI and surgery. 3. Possible pulmonary abscess. Followed by the pulmonary service and ID. 4. Hypertension. Reasonable control. Continue to monitor and adjust medications as needed. Comment Review of Relevant I have reviewed the following items jackie (where applicable) has been applied. Labs Laboratory Tests Test 08/20/18 04:45 08/20/18 12:03 08/20/18 18:04 08/20/18 23:08 White Blood Count 4.5 x10^3/uL (4.0-11.0) Red Blood Count 3.59 x10^6/uL (3.50-5.40) Hemoglobin 11.0 g/dL (12.0-15.5) Hematocrit 31.8 % (36.0-47.0) Mean Corpuscular Volume 89 fL (79-100) Mean Corpuscular Hemoglobin 31 pg (25-35) Mean Corpuscular Hemoglobin Concent 35 g/dL (31-37) Red Cell Distribution Width 16.5 % (11.5-14.5) Platelet Count 204 x10^3/uL (140-400) Neutrophils (%) (Auto) 84 % (31-73) Lymphocytes (%) (Auto) 12 % (24-48) Monocytes (%) (Auto) 4 % (0-9) Eosinophils (%) (Auto) 0 % (0-3) Basophils (%) (Auto) 0 % (0-3) Neutrophils # (Auto) 3.8 x10^3uL (1.8-7.7) Lymphocytes # (Auto) 0.5 x10^3/uL (1.0-4.8) Monocytes # (Auto) 0.2 x10^3/uL (0.0-1.1) Eosinophils # (Auto) 0.0 x10^3/uL (0.0-0.7) Basophils # (Auto) 0.0 x10^3/uL (0.0-0.2) Sodium Level 139 mmol/L (136-145) Potassium Level 3.8 mmol/L (3.5-5.1) Chloride Level 106 mmol/L (98-107) Carbon Dioxide Level 22 mmol/L (21-32) Anion Gap 11 (6-14) Blood Urea Nitrogen 24 mg/dL (7-20) Creatinine 0.6 mg/dL (0.6-1.0) Estimated GFR (Cockcroft-Gault) 98.3 Glucose Level 252 mg/dL (70-99) Calcium Level 7.0 mg/dL (8.5-10.1) Phosphorus Level 1.5 mg/dL (2.6-4.7) Magnesium Level 2.2 mg/dL (1.8-2.4) Glucose (Fingerstick) 152 mg/dL (70-99) 160 mg/dL (70-99) 132 mg/dL (70-99) Test 08/21/18 06:01 08/21/18 06:20 08/21/18 11:48 Glucose (Fingerstick) 91 mg/dL (70-99) 107 mg/dL (70-99) Sodium Level 141 mmol/L (136-145) Potassium Level 3.8 mmol/L (3.5-5.1) Chloride Level 104 mmol/L (98-107) Carbon Dioxide Level 28 mmol/L (21-32) Anion Gap 9 (6-14) Blood Urea Nitrogen 16 mg/dL (7-20) Creatinine 0.4 mg/dL (0.6-1.0) Estimated GFR (Cockcroft-Gault) 156.9 BUN/Creatinine Ratio 40 (6-20) Glucose Level 98 mg/dL (70-99) Calcium Level 7.0 mg/dL (8.5-10.1) Phosphorus Level 1.7 mg/dL (2.6-4.7) Magnesium Level 1.7 mg/dL (1.8-2.4) Total Bilirubin 0.3 mg/dL (0.2-1.0) Aspartate Amino Transf (AST/SGOT) 61 U/L (15-37) Alanine Aminotransferase (ALT/SGPT) 66 U/L (14-59) Alkaline Phosphatase 192 U/L (46-116) Total Protein 4.8 g/dL (6.4-8.2) Albumin 1.8 g/dL (3.4-5.0) Albumin/Globulin Ratio 0.6 (1.0-1.7) Laboratory Tests Test 08/20/18 18:04 08/20/18 23:08 08/21/18 06:01 08/21/18 06:20 Glucose (Fingerstick) 160 mg/dL (70-99) 132 mg/dL (70-99) 91 mg/dL (70-99) Sodium Level 141 mmol/L (136-145) Potassium Level 3.8 mmol/L (3.5-5.1) Chloride Level 104 mmol/L (98-107) Carbon Dioxide Level 28 mmol/L (21-32) Anion Gap 9 (6-14) Blood Urea Nitrogen 16 mg/dL (7-20) Creatinine 0.4 mg/dL (0.6-1.0) Estimated GFR (Cockcroft-Gault) 156.9 BUN/Creatinine Ratio 40 (6-20) Glucose Level 98 mg/dL (70-99) Calcium Level 7.0 mg/dL (8.5-10.1) Phosphorus Level 1.7 mg/dL (2.6-4.7) Magnesium Level 1.7 mg/dL (1.8-2.4) Total Bilirubin 0.3 mg/dL (0.2-1.0) Aspartate Amino Transf (AST/SGOT) 61 U/L (15-37) Alanine Aminotransferase (ALT/SGPT) 66 U/L (14-59) Alkaline Phosphatase 192 U/L (46-116) Total Protein 4.8 g/dL (6.4-8.2) Albumin 1.8 g/dL (3.4-5.0) Albumin/Globulin Ratio 0.6 (1.0-1.7) Test 08/21/18 11:48 Glucose (Fingerstick) 107 mg/dL (70-99) Microbiology 08/18/18 Blood Culture - Preliminary, Resulted NO GROWTH AFTER 3 DAYS Medications Current Medications Sodium Chloride 1,000 ml @ 100 mls/hr Q10H IV Last administered on 08/17/18at 06:55; Start 08/17/18 at 06:30; Stop 08/17/18 at 16:29; Status DC Ondansetron HCl (Zofran) 4 mg 1X ONCE IV Last administered on 08/17/18at 06:55; Start 08/17/18 at 06:30; Stop 08/17/18 at 06:31; Status DC Iohexol (Omnipaque 240 Mg/ml) 30 ml 1X ONCE PO Last administered on 08/17/18at 07:15; Start 08/17/18 at 07:15; Stop 08/17/18 at 07:16; Status DC Iohexol (Omnipaque 300 Mg/ml) 75 ml 1X ONCE IV Last administered on 08/17/18at 08:11; Start 08/17/18 at 07:15; Stop 08/17/18 at 07:16; Status DC Info (CONTRAST GIVEN -- Rx MONITORING) 1 each PRN DAILY PRN MC SEE COMMENTS; Start 08/17/18 at 07:15; Stop 08/19/18 at 07:14; Status DC Sodium Chloride 1,000 ml @ 1,000 mls/hr 1X ONCE IV Last administered on 08/17/18at 07:45; Start 08/17/18 at 07:45; Stop 08/17/18 at 08:44; Status DC Magnesium Sulfate/ Dextrose 100 ml @ 100 mls/hr 1X ONCE IV Last administered on 08/17/18at 14:55; Start 08/17/18 at 07:45; Stop 08/17/18 at 08:44; Status DC Potassium Chloride/Water 100 ml @ 100 mls/hr Q1H IV Last administered on 08/17/18at 09:23; Start 08/17/18 at 07:45; Stop 08/17/18 at 09:44; Status DC Ertapenem 50 ml @ 100 mls/hr 1X ONCE IV ; Start 08/17/18 at 09:15; Stop 08/17/18 at 09:44; Status UNV Meropenem 500 mg/ Sodium Chloride 50 ml @ 100 mls/hr 1X ONCE IV Last administered on 08/17/18at 10:53; Start 08/17/18 at 09:30; Stop 08/17/18 at 09:59; Status DC Ondansetron HCl (Zofran) 4 mg PRN Q8HRS PRN IV NAUSEA/VOMITING; Start 08/17/18 at 10:00; Stop 08/18/18 at 09:59; Status DC Morphine Sulfate (Morphine Sulfate) 4 mg PRN Q2HR PRN IV PAIN; Start 08/17/18 at 10:00; Stop 08/18/18 at 09:59; Status DC Meropenem 500 mg/ Sodium Chloride 50 ml @ 100 mls/hr Q8HRS IV Last administered on 08/21/18at 14:28; Start 08/17/18 at 14:00 Amino Acids/ Glycerin/ Electrolytes 1,000 ml @ 80 mls/hr [id number] IV Last administered on 08/17/18at 20:57; Start 08/17/18 at 20:15; Stop 08/19/18 at 10:57; Status DC Potassium Chloride/Sodium Chloride 1,000 ml @ 75 mls/hr 1X ONCE IV Last administered on 08/18/18at 11:26; Start 08/18/18 at 07:45; Stop 08/18/18 at 21:04; Status DC Magnesium Sulfate 50 ml @ 25 mls/hr 1X ONCE IV Last administered on 08/18/18at 13:50; Start 08/18/18 at 09:00; Stop 08/18/18 at 10:59; Status DC Famotidine (Pepcid Vial) 20 mg QHS IVP Last administered on 08/20/18at 20:32; Start 08/18/18 at 21:00 Info (Tpn Per Pharmacy) 1 each PRN DAILY PRN MC SEE COMMENTS Last administered on 08/21/18at 13:50; Start 08/18/18 at 13:15 Sodium Chloride 90 meq/Potassium Chloride 50 meq/ Potassium Phosphate 13.6 mmol/Magnesium Sulfate 10 meq/ Calcium Gluconate 10 meq/ Multivitamins 10 ml/Chromium/ Copper/Manganese/ Seleni/Zn 1 ml/ Total Parenteral Nutrition/Amino Acids/Dextrose/ Fat Emulsion Intravenous 1,512 ml @ 63 mls/hr TPN CONT IV Last administered on 08/19/18at 03:19; Start 08/18/18 at 22:00; Stop 08/19/18 at 21:59; Status DC Potassium Phosphate 10 mmol/ Dextrose 103.3333 ml @ 51.667 m... Q2H IV Last administered on 08/19/18at 12:06; Start 08/19/18 at 12:00; Stop 08/19/18 at 15:59; Status DC Calcium Gluconate 1000 mg/Dextrose 110 ml @ 220 mls/hr 1X ONCE IV Last administered on 08/19/18at 15:26; Start 08/19/18 at 15:00; Stop 08/19/18 at 15:29; Status DC Furosemide (Lasix) 20 mg 1X ONCE IVP Last administered on 08/19/18at 13:45; Start 08/19/18 at 13:15; Stop 08/19/18 at 13:16; Status DC Sodium Chloride 90 meq/Potassium Chloride 60 meq/ Potassium Phosphate 17 mmol/ Magnesium Sulfate 10 meq/Calcium Gluconate 15 meq/ Multivitamins 10 ml/Chromium/ Copper/Manganese/ Seleni/Zn 1 ml/ Total Parenteral Nutrition/Amino Acids/Dextrose/ Fat Emulsion Intravenous 1,512 ml @ 63 mls/hr TPN CONT IV Last administered on 08/19/18at 21:46; Start 08/19/18 at 22:00; Stop 08/20/18 at 21:59; Status DC Dextrose (Dextrose 50%-Water Syringe) 12.5 gm PRN Q15MIN PRN IV SEE COMMENTS; Start 08/20/18 at 06:30 Adenosine (Adenocard) 6 mg 1X ONCE IV Last administered on 08/20/18at 07:45; Start 08/20/18 at 10:00; Stop 08/20/18 at 10:08; Status DC Sodium Phosphate 30 mmol/Dextrose 260 ml @ 65 mls/hr 1X ONCE IV Last adminis tered on 08/20/18at 13:04; Start 08/20/18 at 13:00; Stop 08/20/18 at 16:59; Status DC Sodium Chloride 90 meq/Potassium Chloride 60 meq/ Potassium Phosphate 25 mmol/ Magnesium Sulfate 10 meq/Calcium Gluconate 10 meq/ Multivitamins 10 ml/Chromium/ Copper/Manganese/ Seleni/Zn 1 ml/ Total Parenteral Nutrition/Amino Acids/Dextrose/ Fat Emulsion Intravenous 1,512 ml @ 63 mls/hr TPN CONT IV Last administered on 08/20/18at 20:32; Start 08/20/18 at 22:00; Stop 08/21/18 at 21:59 Bisacodyl (Dulcolax Supp) 10 mg 1X ONCE CA Last administered on 08/21/18at 11:14; Start 08/21/18 at 09:45; Stop 08/21/18 at 09:46; Status DC Potassium Phosphate 15 mmol/ Sodium Chloride 255 ml @ 127.5 mls/ hr 1X ONCE IV Last administered on 08/21/18at 16:48; Start 08/21/18 at 15:00; Stop 08/21/18 at 16:59; Status DC Sodium Chloride 90 meq/Potassium Chloride 60 meq/ Potassium Phosphate 25 mmol/ Magnesium Sulfate 13 meq/Calcium Gluconate 10 meq/ Multivitamins 10 ml/Chromium/ Copper/Manganese/ Seleni/Zn 1 ml/ Total Parenteral Nutrition/Amino Acids/Dext farzana/ Fat Emulsion Intravenous 1,512 ml @ 63 mls/hr TPN CONT IV ; Start 08/21/18 at 22:00; Stop 08/22/18 at 21:59 Active Scripts Active Avelox (Moxifloxacin Hcl) 400 Mg Tablet 1 Tab PO DAILY Diphenoxylate-Atropine Tablet (Diphenoxylate Hcl/Atropine) 1 Each Tablet 1 Tab PO PRN QID PRN 30 Days Famotidine 20 Mg Tablet 20 Mg PO QHS 60 Days Aspirin Ec (Aspirin) 81 Mg Tablet.dr 81 Mg PO DAILYWBKFT 30 Days Toprol Xl (Metoprolol Succinate) 50 Mg Tab.er.24h 50 Mg PO HS 30 Days Hydrocodone-Apap 5-325 (Hydrocodone Bit/Acetaminophen) 1 Tab Tablet 1 Tab PO PRN Q4HRS PRN Reported Multivitamins (Multivitamin) 1 Each Tablet 1 Each PO DAILY Vitamin D3 (Cholecalciferol (Vitamin D3)) 1,000 Unit Tablet 1,000 Unit PO DAILY Vitals/I & O Vital Sign - Last 24 Hours 08/20/18 08/20/18 08/20/18 08/21/18 19:20 19:35 23:05 02:30 Temp 97.8 97.8 97.5 97.8 97.8 97.5 Pulse 98 95 93 Resp 18 18 18 B/P (MAP) 121/69 (86) 115/69 (84) 121/71 (88) Pulse Ox 97 97 98 O2 Delivery Room Air Room Air Room Air Room Air 08/21/18 08/21/18 08/21/18 08/21/18 07:00 08:00 11:00 15:07 Temp 97.3 97.4 98.2 97.3 97.4 98.2 Pulse 91 95 104 Resp 18 18 18 B/P (MAP) 124/73 (90) 129/73 (91) 119/71 (87) Pulse Ox 96 98 93 O2 Delivery Room Air Room Air Room Air Room Air Intake and Output 08/20/18 08/20/18 08/21/18 15:00 23:00 07:00 Intake Total 50 ml 806 ml 820 ml Output Total 450 ml 1150 ml 500 ml Balance -400 ml -344 ml 320 ml Nutrition Consultation Dietary Evaluation: Recommendations by RD: Increase Calorie Intake, Protein supplementation, PPN/TPN Comments: Continue w/TPN per current order for nutrition needs REC Vit C, MVI for wound healing as able Advance diet as able to regular, note multiple food intolerances Expected Outcomes/Goals: to meet > 75% est nutr needs via TPN - met, goal ongoing Interpretation of weight loss: >10% in 6 months Malnutrition Findings: Muscle Mass (Severe): Severe Depletion Weight Status: Underweight STEPHANIE CHINCHILLA MD Aug 21, 2018 17:28
[2018-08-21 19:44] VITALS: BP 112/62
[2018-08-21] MEDS ORDERED: AMINO ACID IV SCH ×10 (22:00)
[2018-08-21] MEDS ORDERED: DEXTROSE 70% IV SCH ×10 (22:00)
[2018-08-21] MEDS ORDERED: TOTAL PARENTERAL NUTRITION IV SCH ×10 (22:00)
[2018-08-21] MEDS ORDERED: [UNRECOGNIZED DRUG - OTHER] IV SCH ×10 (22:00)
[2018-08-21] MEDS: FAMOTIDINE 20 MG/2 ML VIAL IVP SCH (22:03)
[2018-08-21 23:56] VITALS: BP 107/65
[2018-08-22] VITALS (7 sets, daily range): BP systolic 109–131; BP diastolic 60–82
[2018-08-22] MEDS: MEROPENEM 500 MG in IV NORMAL SALINE 50ML 50 ML IV SCH ×3 (05:36→21:27)
[2018-08-22 06:26] LABS: BASO % 0 % (0-3); EOS % 1 % (0-3); HEMATOCRIT 27.8 % (36.0-47.0); HEMOGLOBIN 9.6 g/dL (12.0-15.5); LYMPH # 0.7 x10^3/uL (1.0-4.8); LYMPH % 21 % (24-48); MEAN CORPUSCULAR HEMOGLOBIN 31 pg (25-35); MEAN CORPUSCULAR HGB CONC 34 g/dL (31-37); MEAN CORPUSCULAR VOLUME 89 fL (79-100); MONO # 0.3 x10^3/uL (0.0-1.1); MONO % 9 % (0-9); NEUT # 2.5 x10^3uL (1.8-7.7); NEUT % 69 % (31-73); PLATELET COUNT 190 x10^3/uL (140-400); RED BLOOD COUNT 3.11 x10^6/uL (3.50-5.40); RED CELL DISTRIBUTION WIDTH 16.1 % (11.5-14.5); WHITE BLOOD COUNT 3.6 x10^3/uL (4.0-11.0)
[2018-08-22 08:26] LABS: ALBUMIN 1.6 g/dL (3.4-5.0); ALBUMIN/GLOBULIN RATIO 0.5 (1.0-1.7); CALCIUM 7.5 mg/dL (8.5-10.1); CREATININE 0.3 mg/dL (0.6-1.0); GFR 218.7; POTASSIUM 4.7 mmol/L (3.5-5.1); TOTAL BILIRUBIN 0.4 mg/dL (0.2-1.0); TOTAL PROTEIN 4.9 g/dL (6.4-8.2)
--- NOTE | 2018-08-22 08:43 | PDOC ---
PULMONARY PROGRESS NOTES Subjective PT NOT MORE SOA Vitals Vital Signs Date Time Temp Pulse Resp B/P (MAP) Pulse Ox O2 Delivery O2 Flow Rate FiO2 08/22/18 08:00 Room Air 08/22/18 07:00 97.9 99 18 115/60 (78) 100 97.9 ROS: No Nausea, No Chest Pain, No Abdominal Pain, No Increase Cough General: Alert, No acute distress Lungs: Clear Cardiovascular: S1, S2 Abdomen: Soft, Non-tender Extremities: No Edema Labs Laboratory Tests Test 08/20/18 12:03 08/20/18 18:04 08/20/18 23:08 08/21/18 06:01 Glucose (Fingerstick) 152 mg/dL (70-99) 160 mg/dL (70-99) 132 mg/dL (70-99) 91 mg/dL (70-99) Test 08/21/18 06:20 08/21/18 11:48 08/21/18 18:24 08/22/18 06:00 Sodium Level 141 mmol/L (136-145) Potassium Level 3.8 mmol/L (3.5-5.1) Chloride Level 104 mmol/L (98-107) Carbon Dioxide Level 28 mmol/L (21-32) Anion Gap 9 (6-14) Blood Urea Nitrogen 16 mg/dL (7-20) Creatinine 0.4 mg/dL (0.6-1.0) Estimated GFR (Cockcroft-Gault) 156.9 BUN/Creatinine Ratio 40 (6-20) Glucose Level 98 mg/dL (70-99) Calcium Level 7.0 mg/dL (8.5-10.1) Phosphorus Level 1.7 mg/dL (2.6-4.7) Magnesium Level 1.7 mg/dL (1.8-2.4) Total Bilirubin 0.3 mg/dL (0.2-1.0) Aspartate Amino Transf (AST/SGOT) 61 U/L (15-37) Alanine Aminotransferase (ALT/SGPT) 66 U/L (14-59) Alkaline Phosphatase 192 U/L (46-116) Total Protein 4.8 g/dL (6.4-8.2) Albumin 1.8 g/dL (3.4-5.0) Albumin/Globulin Ratio 0.6 (1.0-1.7) Glucose (Fingerstick) 107 mg/dL (70-99) 111 mg/dL (70-99) White Blood Count 3.6 x10^3/uL (4.0-11.0) Red Blood Count 3.11 x10^6/uL (3.50-5.40) Hemoglobin 9.6 g/dL (12.0-15.5) Hematocrit 27.8 % (36.0-47.0) Mean Corpuscular Volume 89 fL (79-100) Mean Corpuscular Hemoglobin 31 pg (25-35) Mean Corpuscular Hemoglobin Concent 34 g/dL (31-37) Red Cell Distribution Width 16.1 % (11.5-14.5) Platelet Count 190 x10^3/uL (140-400) Neutrophils (%) (Auto) 69 % (31-73) Lymphocytes (%) (Auto) 21 % (24-48) Monocytes (%) (Auto) 9 % (0-9) Eosinophils (%) (Auto) 1 % (0-3) Basophils (%) (Auto) 0 % (0-3) Neutrophils # (Auto) 2.5 x10^3uL (1.8-7.7) Lymphocytes # (Auto) 0.7 x10^3/uL (1.0-4.8) Monocytes # (Auto) 0.3 x10^3/uL (0.0-1.1) Eosinophils # (Auto) 0.0 x10^3/uL (0.0-0.7) Basophils # (Auto) 0.0 x10^3/uL (0.0-0.2) Test 08/22/18 06:22 08/22/18 07:50 Glucose (Fingerstick) 103 mg/dL (70-99) Sodium Level 136 mmol/L (136-145) Potassium Level 4.7 mmol/L (3.5-5.1) Chloride Level 104 mmol/L (98-107) Carbon Dioxide Level 26 mmol/L (21-32) Anion Gap 6 (6-14) Blood Urea Nitrogen 15 mg/dL (7-20) Creatinine 0.3 mg/dL (0.6-1.0) Estimated GFR (Cockcroft-Gault) 218.7 BUN/Creatinine Ratio 50 (6-20) Glucose Level 106 mg/dL (70-99) Calcium Level 7.5 mg/dL (8.5-10.1) Total Bilirubin 0.4 mg/dL (0.2-1.0) Aspartate Amino Transf (AST/SGOT) 92 U/L (15-37) Alanine Aminotransferase (ALT/SGPT) 89 U/L (14-59) Alkaline Phosphatase 192 U/L (46-116) Total Protein 4.9 g/dL (6.4-8.2) Albumin 1.6 g/dL (3.4-5.0) Albumin/Globulin Ratio 0.5 (1.0-1.7) Laboratory Tests Test 08/21/18 11:48 08/21/18 18:24 08/22/18 06:00 08/22/18 06:22 Glucose (Fingerstick) 107 mg/dL (70-99) 111 mg/dL (70-99) 103 mg/dL (70-99) White Blood Count 3.6 x10^3/uL (4.0-11.0) Red Blood Count 3.11 x10^6/uL (3.50-5.40) Hemoglobin 9.6 g/dL (12.0-15.5) Hematocrit 27.8 % (36.0-47.0) Mean Corpuscular Volume 89 fL (79-100) Mean Corpuscular Hemoglobin 31 pg (25-35) Mean Corpuscular Hemoglobin Concent 34 g/dL (31-37) Red Cell Distribution Width 16.1 % (11.5-14.5) Platelet Count 190 x10^3/uL (140-400) Neutrophils (%) (Auto) 69 % (31-73) Lymphocytes (%) (Auto) 21 % (24-48) Monocytes (%) (Auto) 9 % (0-9) Eosinophils (%) (Auto) 1 % (0-3) Basophils (%) (Auto) 0 % (0-3) Neutrophils # (Auto) 2.5 x10^3uL (1.8-7.7) Lymphocytes # (Auto) 0.7 x10^3/uL (1.0-4.8) Monocytes # (Auto) 0.3 x10^3/uL (0.0-1.1) Eosinophils # (Auto) 0.0 x10^3/uL (0.0-0.7) Basophils # (Auto) 0.0 x10^3/uL (0.0-0.2) Test 08/22/18 07:50 Sodium Level 136 mmol/L (136-145) Potassium Level 4.7 mmol/L (3.5-5.1) Chloride Level 104 mmol/L (98-107) Carbon Dioxide Level 26 mmol/L (21-32) Anion Gap 6 (6-14) Blood Urea Nitrogen 15 mg/dL (7-20) Creatinine 0.3 mg/dL (0.6-1.0) Estimated GFR (Cockcroft-Gault) 218.7 BUN/Creatinine Ratio 50 (6-20) Glucose Level 106 mg/dL (70-99) Calcium Level 7.5 mg/dL (8.5-10.1) Total Bilirubin 0.4 mg/dL (0.2-1.0) Aspartate Amino Transf (AST/SGOT) 92 U/L (15-37) Alanine Aminotransferase (ALT/SGPT) 89 U/L (14-59) Alkaline Phosphatase 192 U/L (46-116) Total Protein 4.9 g/dL (6.4-8.2) Albumin 1.6 g/dL (3.4-5.0) Albumin/Globulin Ratio 0.5 (1.0-1.7) Medications Active Scripts Medications Dose Route/Sig Max Daily Dose Days Date Category Avelox (Moxifloxacin Hcl) 400 Mg Tablet 1 Tab PO DAILY 05/17/18 Rx Diphenoxylate-Atropine Tablet (Diphenoxylate Hcl/Atropine) 1 Each Tablet 1 Tab PO PRN QID PRN 30 04/21/18 Rx Famotidine 20 Mg Tablet 20 Mg PO QHS 60 04/19/18 Rx Aspirin Ec (Aspirin) 81 Mg Tablet.dr 81 Mg PO DAILYWBKFT 30 04/19/18 Rx Toprol Xl (Metoprolol Succinate) 50 Mg Tab.er.24h 50 Mg PO HS 30 04/19/18 Rx Hydrocodone-Apap 5-325 (Hydrocodone Bit/Acetaminophen) 1 Tab Tablet 1 Tab PO PRN Q4HRS PRN 03/09/18 Rx Multivitamins (Multivitamin) 1 Each Tablet 1 Each PO DAILY 03/07/18 Reported Vitamin D3 (Cholecalciferol (Vitamin D3)) 1,000 Unit Tablet 1,000 Unit PO DAILY 03/07/18 Reported Impression . 1. Abnormal CT chest with a cavitary mass in the right chest, likely abscess. This is considerably reduced in size compared to the 03/2018 CT. D/W RADIOLOGY. Location of recent right lung abscess slightly inferior to previous one and as such new abscess. There is new pneumonia in RUL and tiny thin cavitary nodules in left lung. She has distended stomach She likely has ongoing / recurrent aspiration form bowel obstruction contributing to recurrent lung abscess. 2. MALNUTRITION 3. No significant history of tobacco use. 4. Coffee ground NG aspirate 5. Pneumoperitonium 6. RECURRENT SBO Bronch cultures from Mar 2018 BRONCH CULTURE Final Final report BRONCH RES 1 Final Citrobacter freundii 4+ ANTIMICROBIAL SUSCEPTIBILITY Final Comment S = Susceptible; I = Intermediate; R = Resistant P = Positive; N = Negative MICS are expressed in micrograms per mL Antibiotic RSLT#1 RSLT#2 RSLT#3 RSLT#4 Amoxicillin/Clavulanic Acid R>=32 Cefazolin R>=64 Cefepime S<=0.12 Ceftriaxone R>=64 Cefuroxime R>=64 Ciprofloxacin S<=0.25 Gentamicin S<=1 Imipenem S<=0.25 Levofloxacin S<=0.12 Meropenem S<=0.25 Nitrofurantoin S<=16 Tetracycline S<=1 Tobramycin S<=1 Trimethoprim/Sulfa S<=20 Performed at: DA - [facility] [address], [place], [place] [id number] Business Services Associate: KAILASH Zarate MD, Phone: [phone] Plan . ANTI BX PER ID PT EVAL AND TREAT NUTRITIONAL SUPPORT WILL CONTINUE ANTIBX FOLLOW ID INPUT ARTURO ORTEGA MD Aug 22, 2018 08:42
[2018-08-22 09:58] LABS: MAGNESIUM 1.6 mg/dL (1.8-2.4); PHOSPHORUS 1.9 mg/dL (2.6-4.7)
[2018-08-22] MEDS ORDERED: METOPROLOL TARTRATE 5 MG/5 ML VIAL. IVP PRN (10:00)
--- NOTE | 2018-08-22 10:05 | PDOC ---
CARDIO Progress Notes Date and Time Date of Service 08/22/18 Time of Evaluation 0938 Subjective Subjective: No Chest Pain, No shortness of breath, No Palpitations, No Dizziness Vitals Vitals Vital Signs Date Time Temp Pulse Resp B/P (MAP) Pulse Ox O2 Delivery O2 Flow Rate FiO2 08/22/18 08:00 Room Air 08/22/18 07:00 97.9 99 18 115/60 (78) 100 97.9 Weight Weight [ ] Input and Output Intake and Output Intake and Output 08/22/18 07:00 Intake Total 1056 ml Output Total 1300 ml Balance -244 ml Intake Oral 100 ml Other 956 ml Output Urine Total 1100 ml Drainage Total 200 ml # Voids 1 Laboratory Labs Laboratory Tests Test 08/21/18 11:48 08/21/18 18:24 08/22/18 06:00 08/22/18 06:22 Glucose (Fingerstick) 107 mg/dL (70-99) 111 mg/dL (70-99) 103 mg/dL (70-99) White Blood Count 3.6 x10^3/uL (4.0-11.0) Red Blood Count 3.11 x10^6/uL (3.50-5.40) Hemoglobin 9.6 g/dL (12.0-15.5) Hematocrit 27.8 % (36.0-47.0) Mean Corpuscular Volume 89 fL (79-100) Mean Corpuscular Hemoglobin 31 pg (25-35) Mean Corpuscular Hemoglobin Concent 34 g/dL (31-37) Red Cell Distribution Width 16.1 % (11.5-14.5) Platelet Count 190 x10^3/uL (140-400) Neutrophils (%) (Auto) 69 % (31-73) Lymphocytes (%) (Auto) 21 % (24-48) Monocytes (%) (Auto) 9 % (0-9) Eosinophils (%) (Auto) 1 % (0-3) Basophils (%) (Auto) 0 % (0-3) Neutrophils # (Auto) 2.5 x10^3uL (1.8-7.7) Lymphocytes # (Auto) 0.7 x10^3/uL (1.0-4.8) Monocytes # (Auto) 0.3 x10^3/uL (0.0-1.1) Eosinophils # (Auto) 0.0 x10^3/uL (0.0-0.7) Basophils # (Auto) 0.0 x10^3/uL (0.0-0.2) Test 08/22/18 07:50 Sodium Level 136 mmol/L (136-145) Potassium Level 4.7 mmol/L (3.5-5.1) Chloride Level 104 mmol/L (98-107) Carbon Dioxide Level 26 mmol/L (21-32) Anion Gap 6 (6-14) Blood Urea Nitrogen 15 mg/dL (7-20) Creatinine 0.3 mg/dL (0.6-1.0) Estimated GFR (Cockcroft-Gault) 218.7 BUN/Creatinine Ratio 50 (6-20) Glucose Level 106 mg/dL (70-99) Calcium Level 7.5 mg/dL (8.5-10.1) Total Bilirubin 0.4 mg/dL (0.2-1.0) Aspartate Amino Transf (AST/SGOT) 92 U/L (15-37) Alanine Aminotransferase (ALT/SGPT) 89 U/L (14-59) Alkaline Phosphatase 192 U/L (46-116) Total Protein 4.9 g/dL (6.4-8.2) Albumin 1.6 g/dL (3.4-5.0) Albumin/Globulin Ratio 0.5 (1.0-1.7) Microbiology Micro Microbiology 08/18/18 Blood Culture - Preliminary, Resulted NO GROWTH AFTER 4 DAYS Physical Exam HEENT: Neck Supple W Full Motion, Other (left nare NGT) Chest: Symmetric LUNGS: Clear to Auscultation Heart: S1S2, RRR Abdomen: Soft N/T Extremities: No Edema Neurology: alert, follow commands Assessment Assessment 1. PSVT; s/p adenosine 6mg x1. maintaining SR/ST. Recent echo with preserved LV systolic function 2. SBO, recurrent; NPO with NGT. 3. Hypertension; controlled without therapy 4. Pulmonary mass; abscess versus malignancy 6. Elevated LFTs 6. Hypomagnesemia 7. H/o rectal CA, IBS 8. GERD Recommendations Metoprolol IV PRN while NPO Recheck Mg- replace as warranted TSH level Follow GI and surgery recommendations Supportive care from a CV standpoint. JUANY CAPELLAN APRN Aug 22, 2018 10:05
[2018-08-22] MEDS: TPN PER PHARMACY MC PRN (10:49)
--- NOTE | 2018-08-22 10:49 | NUR ---
Pharmacy TPN Dosing Note S: CHELSIE PINEDA is a 73 year old F Currently receiving Central Continuous TPN started 08/18/18 B:Pertinent PMH: SBO Height: 5 feet, 3 inches Weight: 44.6 kg Current diet: NPO LABS: Sodium: 136 Potassium: 4.7 Chloride: 104 Calcium: 7.5 Corrected Calcium: 9.42 Magnesium: 1.6 CO2: 26 SCr: 0.3 Glucose: 103, 106 Albumin: 1.6 AST: 61 ALT: 65 TPN FORMULA: TPN TYPE: Central Continuous AMINO ACIDS: 60 gm DEXTROSE: 195 gm LIPIDS: 20 gm SODIUM CHLORIDE: 90 mEq SODIUM PHOSPHATE: 15 mmol POTASSIUM CHLORIDE: 35 mEq POTASSIUM PHOSPHATE: 25 mmol MAGNESIUM: 18 mEq MULTIPLE VITAMIN: 10 ml TRACE ELEMENTS: 1 ml TPN PLAN: -Serum phos low; give NaPhos outside of TPN. Add NaPhos 15 mmol to TPN. -Serum magnesium low; give mag sulfate 2g outside of TPN. Increase mag sulfate in TPN to 18 mEq/day. -Remove calcium due to calcium/phos ratio. -Reduce KCl due to jump in serum potassium, likely due to KPhos supplementation. -CMP, mag, phos tomorrow per protocol. R: Continue TPN @ current rate and with above changes. Will monitor electrolytes, glucose, and tolerance to TPN. MIGNON SANCHEZ [facility], 08/22/18 [id number]
[2018-08-22] MEDS ORDERED: SODIUM PHOSPHATE 30 MMOL in IV DEXTROSE 5% 250 ML IV ONE (11:00)
[2018-08-22] MEDS ORDERED: MAGNESIUM SULFATE 2GM 50 ML IV ONE (11:00)
--- NOTE | 2018-08-22 11:09 | PDOC ---
Infectious Disease Note Subjective Subjective Rapid response called for tachycardia on 08/20, s/p adenosine and IVF bolus Transferred to telemetry floor Doing ok Has a little bit of a sore throat from NGT No fevers TPN Vital Sign Vital Signs Vital Signs Date Time Temp Pulse Resp B/P (MAP) Pulse Ox O2 Delivery O2 Flow Rate FiO2 08/22/18 08:00 Room Air 08/22/18 07:00 97.9 99 18 115/60 (78) 100 97.9 Physical Exam PHYSICAL EXAM GENERAL: Propped up in bed, alert, cachetic, smiling HEENT: Oral cavity moist, NGT to suction NECK: has a neck pillow LUNGS: Decreased breath sounds at the bases. HEART: S1, S2, regular ABDOMEN: Nondistended, soft, BS present EXTREMITIES: 1+ edema BLE, DERMATOLOGIC: Warm, dry, no generalized rash NEUROLOGY: Alert, responds appropriately LUE-PICC clean Labs Lab Laboratory Tests Test 08/21/18 11:48 08/21/18 18:24 08/22/18 06:00 08/22/18 06:22 Glucose (Fingerstick) 107 mg/dL (70-99) 111 mg/dL (70-99) 103 mg/dL (70-99) White Blood Count 3.6 x10^3/uL (4.0-11.0) Red Blood Count 3.11 x10^6/uL (3.50-5.40) Hemoglobin 9.6 g/dL (12.0-15.5) Hematocrit 27.8 % (36.0-47.0) Mean Corpuscular Volume 89 fL (79-100) Mean Corpuscular Hemoglobin 31 pg (25-35) Mean Corpuscular Hemoglobin Concent 34 g/dL (31-37) Red Cell Distribution Width 16.1 % (11.5-14.5) Platelet Count 190 x10^3/uL (140-400) Neutrophils (%) (Auto) 69 % (31-73) Lymphocytes (%) (Auto) 21 % (24-48) Monocytes (%) (Auto) 9 % (0-9) Eosinophils (%) (Auto) 1 % (0-3) Basophils (%) (Auto) 0 % (0-3) Neutrophils # (Auto) 2.5 x10^3uL (1.8-7.7) Lymphocytes # (Auto) 0.7 x10^3/uL (1.0-4.8) Monocytes # (Auto) 0.3 x10^3/uL (0.0-1.1) Eosinophils # (Auto) 0.0 x10^3/uL (0.0-0.7) Basophils # (Auto) 0.0 x10^3/uL (0.0-0.2) Test 08/22/18 07:50 Sodium Level 136 mmol/L (136-145) Potassium Level 4.7 mmol/L (3.5-5.1) Chloride Level 104 mmol/L (98-107) Carbon Dioxide Level 26 mmol/L (21-32) Anion Gap 6 (6-14) Blood Urea Nitrogen 15 mg/dL (7-20) Creatinine 0.3 mg/dL (0.6-1.0) Estimated GFR (Cockcroft-Gault) 218.7 BUN/Creatinine Ratio 50 (6-20) Glucose Level 106 mg/dL (70-99) Calcium Level 7.5 mg/dL (8.5-10.1) Phosphorus Level 1.9 mg/dL (2.6-4.7) Magnesium Level 1.6 mg/dL (1.8-2.4) Total Bilirubin 0.4 mg/dL (0.2-1.0) Aspartate Amino Transf (AST/SGOT) 92 U/L (15-37) Alanine Aminotransferase (ALT/SGPT) 89 U/L (14-59) Alkaline Phosphatase 192 U/L (46-116) Total Protein 4.9 g/dL (6.4-8.2) Albumin 1.6 g/dL (3.4-5.0) Albumin/Globulin Ratio 0.5 (1.0-1.7) Thyroid Stimulating Hormone (TSH) 2.676 uIU/mL (0.358-3.74) Micro Microbiology 08/18/18 Blood Culture - Preliminary, Resulted NO GROWTH AFTER 3 DAYS Objective Assessment Cavitary mass in 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 Multiple cavitary nodules in the lung. AFB cultures negative in 03/2018. SVT Ongoing subjective weight loss, failure to thrive, nausea, vomiting, weakness, cachexia. Recurrent small bowel obstruction. Abnormal CT with questionable pneumoperitoneum. Protein-calorie malnutrition. History of rectal cancer, last colonoscopy 03/2014. History of irritable bowel syndrome. Bandemia/leukopenia - better Mild increase in LFTS - likely TPN Plan Plan of Care Continue Merrem (since 08/17) BC NGTD Monitor labs in am Supportive care D/w nursing ELADIO DWYER MD Aug 22, 2018 11:09
--- NOTE | 2018-08-22 12:28 | NUR ---
SS following up with discharge planning. SS met with pt and spouse in room to further discuss correction unit and discharge planning. Pt and spouse agreeable to correction unit and have a list of options but reported that they need to speak with there daughter prior to deciding. Pt reported that she plans to discuss with her daughter at 1430 when she gets off of work. SS will continue to follow up with pt.
--- NOTE | 2018-08-22 12:53 | PDOC ---
Subjective: Subjective: Passed a small amount of stool after suppository yesterday. No flatus or stool today. No abd pain. No n/v. Says discussed plans for rehab when discharged. Objective: Objective: Reviewed w/ RN - "walnut-sized" stool yesterday, replacing magnesium. Vital Signs: Vital Signs Date Time Temp Pulse Resp B/P (MAP) Pulse Ox O2 Delivery O2 Flow Rate FiO2 08/22/18 11:00 97.7 98 18 118/69 (85) 97 Room Air 97.7 Labs: Laboratory Tests Test 08/21/18 18:24 08/22/18 06:00 08/22/18 06:22 08/22/18 07:50 Glucose (Fingerstick) 111 mg/dL 103 mg/dL White Blood Count 3.6 x10^3/uL Red Blood Count 3.11 x10^6/uL Hemoglobin 9.6 g/dL Hematocrit 27.8 % Mean Corpuscular Volume 89 fL Mean Corpuscular Hemoglobin 31 pg Mean Corpuscular Hemoglobin Concent 34 g/dL Red Cell Distribution Width 16.1 % Platelet Count 190 x10^3/uL Neutrophils (%) (Auto) 69 % Lymphocytes (%) (Auto) 21 % Monocytes (%) (Auto) 9 % Eosinophils (%) (Auto) 1 % Basophils (%) (Auto) 0 % Neutrophils # (Auto) 2.5 x10^3uL Lymphocytes # (Auto) 0.7 x10^3/uL Monocytes # (Auto) 0.3 x10^3/uL Eosinophils # (Auto) 0.0 x10^3/uL Basophils # (Auto) 0.0 x10^3/uL Sodium Level 136 mmol/L Potassium Level 4.7 mmol/L Chloride Level 104 mmol/L Carbon Dioxide Level 26 mmol/L Anion Gap 6 Blood Urea Nitrogen 15 mg/dL Creatinine 0.3 mg/dL Estimated GFR (Cockcroft-Gault) 218.7 BUN/Creatinine Ratio 50 Glucose Level 106 mg/dL Calcium Level 7.5 mg/dL Phosphorus Level 1.9 mg/dL Magnesium Level 1.6 mg/dL Total Bilirubin 0.4 mg/dL Aspartate Amino Transf (AST/SGOT) 92 U/L Alanine Aminotransferase (ALT/SGPT) 89 U/L Alkaline Phosphatase 192 U/L Total Protein 4.9 g/dL Albumin 1.6 g/dL Albumin/Globulin Ratio 0.5 Thyroid Stimulating Hormone (TSH) 2.676 uIU/mL Test 08/22/18 12:03 Glucose (Fingerstick) 94 mg/dL PE: GEN: NAD, thin HEENT: NG clamped LUNGS: CTAB HEART: RRR ABD: soft, non-tender, a few quite gurgles NEURO/PSYCH: A & O 3 A/P: Recurrent SBO, pulm abscess Anemia - some drift in Hgb (baseline seems around 9-10 though), no obvious bleeding -- [place] a few bowel sounds today, doing okay w/ NG clamped. Continue per surgery. Continue TPN and IV H2 angy. MARK UP Aug 22, 2018 12:53
--- NOTE | 2018-08-22 12:57 | PDOC ---
PROGRESS NOTES Subjective Subjective Patient continues to stabilize. Patient has no complaints today. Patient did have a small bowel movement. Patient NG clamped for over 12 hours at this time. Patient without distention nausea vomiting to this point. Small sacral decub documented. Objective Objective Vital Signs Date Time Temp Pulse Resp B/P (MAP) Pulse Ox O2 Delivery O2 Flow Rate FiO2 08/22/18 11:00 97.7 98 18 118/69 (85) 97 Room Air 97.7 Intake and Output 08/22/18 06:59 Intake Total 1056 ml Output Total 1300 ml Balance -244 ml Intake Oral 100 ml Other 956 ml Output Urine Total 1100 ml Drainage Total 200 ml # Voids 1 Physical Exam Abdomen: Normal bowel sounds Heart: Regular rate Extremities: No edema General: Alert Lungs: Clear to auscultation Assessment Assessment Problems Medical Problems: (1) Pneumoperitoneum Status: Acute 1. Functional Small-bowel obstruction 2. Severe protein malnutrition. 3. Leukopenia. 4. Hyponatremia- resolved 5. Hypomagnesemia. 6. Hypokalemia- replacing 7. 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 Pt on Meropenem currently 8. SVT Plan Plan of Care Continue surgery management Possible D/C NG if residual output ok Await bowel function Continue TPN Increase activity Acute rehabilitation transfer when stable. Comment Review of Relevant I have reviewed the following items jackie (where applicable) has been applied. Labs Laboratory Tests Test 08/20/18 18:04 08/20/18 23:08 08/21/18 06:01 08/21/18 06:20 Glucose (Fingerstick) 160 mg/dL (70-99) 132 mg/dL (70-99) 91 mg/dL (70-99) Sodium Level 141 mmol/L (136-145) Potassium Level 3.8 mmol/L (3.5-5.1) Chloride Level 104 mmol/L (98-107) Carbon Dioxide Level 28 mmol/L (21-32) Anion Gap 9 (6-14) Blood Urea Nitrogen 16 mg/dL (7-20) Creatinine 0.4 mg/dL (0.6-1.0) Estimated GFR (Cockcroft-Gault) 156.9 BUN/Creatinine Ratio 40 (6-20) Glucose Level 98 mg/dL (70-99) Calcium Level 7.0 mg/dL (8.5-10.1) Phosphorus Level 1.7 mg/dL (2.6-4.7) Magnesium Level 1.7 mg/dL (1.8-2.4) Total Bilirubin 0.3 mg/dL (0.2-1.0) Aspartate Amino Transf (AST/SGOT) 61 U/L (15-37) Alanine Aminotransferase (ALT/SGPT) 66 U/L (14-59) Alkaline Phosphatase 192 U/L (46-116) Total Protein 4.8 g/dL (6.4-8.2) Albumin 1.8 g/dL (3.4-5.0) Albumin/Globulin Ratio 0.6 (1.0-1.7) Test 08/21/18 11:48 08/21/18 18:24 08/22/18 06:00 08/22/18 06:22 Glucose (Fingerstick) 107 mg/dL (70-99) 111 mg/dL (70-99) 103 mg/dL (70-99) White Blood Count 3.6 x10^3/uL (4.0-11.0) Red Blood Count 3.11 x10^6/uL (3.50-5.40) Hemoglobin 9.6 g/dL (12.0-15.5) Hematocrit 27.8 % (36.0-47.0) Mean Corpuscular Volume 89 fL (79-100) Mean Corpuscular Hemoglobin 31 pg (25-35) Mean Corpuscular Hemoglobin Concent 34 g/dL (31-37) Red Cell Distribution Width 16.1 % (11.5-14.5) Platelet Count 190 x10^3/uL (140-400) Neutrophils (%) (Auto) 69 % (31-73) Lymphocytes (%) (Auto) 21 % (24-48) Monocytes (%) (Auto) 9 % (0-9) Eosinophils (%) (Auto) 1 % (0-3) Basophils (%) (Auto) 0 % (0-3) Neutrophils # (Auto) 2.5 x10^3uL (1.8-7.7) Lymphocytes # (Auto) 0.7 x10^3/uL (1.0-4.8) Monocytes # (Auto) 0.3 x10^3/uL (0.0-1.1) Eosinophils # (Auto) 0.0 x10^3/uL (0.0-0.7) Basophils # (Auto) 0.0 x10^3/uL (0.0-0.2) Test 08/22/18 07:50 08/22/18 12:03 Sodium Level 136 mmol/L (136-145) Potassium Level 4.7 mmol/L (3.5-5.1) Chloride Level 104 mmol/L (98-107) Carbon Dioxide Level 26 mmol/L (21-32) Anion Gap 6 (6-14) Blood Urea Nitrogen 15 mg/dL (7-20) Creatinine 0.3 mg/dL (0.6-1.0) Estimated GFR (Cockcroft-Gault) 218.7 BUN/Creatinine Ratio 50 (6-20) Glucose Level 106 mg/dL (70-99) Calcium Level 7.5 mg/dL (8.5-10.1) Phosphorus Level 1.9 mg/dL (2.6-4.7) Magnesium Level 1.6 mg/dL (1.8-2.4) Total Bilirubin 0.4 mg/dL (0.2-1.0) Aspartate Amino Transf (AST/SGOT) 92 U/L (15-37) Alanine Aminotransferase (ALT/SGPT) 89 U/L (14-59) Alkaline Phosphatase 192 U/L (46-116) Total Protein 4.9 g/dL (6.4-8.2) Albumin 1.6 g/dL (3.4-5.0) Albumin/Globulin Ratio 0.5 (1.0-1.7) Thyroid Stimulating Hormone (TSH) 2.676 uIU/mL (0.358-3.74) Glucose (Fingerstick) 94 mg/dL (70-99) Laboratory Tests Test 08/21/18 18:24 08/22/18 06:00 08/22/18 06:22 08/22/18 07:50 Glucose (Fingerstick) 111 mg/dL (70-99) 103 mg/dL (70-99) White Blood Count 3.6 x10^3/uL (4.0-11.0) Red Blood Count 3.11 x10^6/uL (3.50-5.40) Hemoglobin 9.6 g/dL (12.0-15.5) Hematocrit 27.8 % (36.0-47.0) Mean Corpuscular Volume 89 fL (79-100) Mean Corpuscular Hemoglobin 31 pg (25-35) Mean Corpuscular Hemoglobin Concent 34 g/dL (31-37) Red Cell Distribution Width 16.1 % (11.5-14.5) Platelet Count 190 x10^3/uL (140-400) Neutrophils (%) (Auto) 69 % (31-73) Lymphocytes (%) (Auto) 21 % (24-48) Monocytes (%) (Auto) 9 % (0-9) Eosinophils (%) (Auto) 1 % (0-3) Basophils (%) (Auto) 0 % (0-3) Neutrophils # (Auto) 2.5 x10^3uL (1.8-7.7) Lymphocytes # (Auto) 0.7 x10^3/uL (1.0-4.8) Monocytes # (Auto) 0.3 x10^3/uL (0.0-1.1) Eosinophils # (Auto) 0.0 x10^3/uL (0.0-0.7) Basophils # (Auto) 0.0 x10^3/uL (0.0-0.2) Sodium Level 136 mmol/L (136-145) Potassium Level 4.7 mmol/L (3.5-5.1) Chloride Level 104 mmol/L (98-107) Carbon Dioxide Level 26 mmol/L (21-32) Anion Gap 6 (6-14) Blood Urea Nitrogen 15 mg/dL (7-20) Creatinine 0.3 mg/dL (0.6-1.0) Estimated GFR (Cockcroft-Gault) 218.7 BUN/Creatinine Ratio 50 (6-20) Glucose Level 106 mg/dL (70-99) Calcium Level 7.5 mg/dL (8.5-10.1) Phosphorus Level 1.9 mg/dL (2.6-4.7) Magnesium Level 1.6 mg/dL (1.8-2.4) Total Bilirubin 0.4 mg/dL (0.2-1.0) Aspartate Amino Transf (AST/SGOT) 92 U/L (15-37) Alanine Aminotransferase (ALT/SGPT) 89 U/L (14-59) Alkaline Phosphatase 192 U/L (46-116) Total Protein 4.9 g/dL (6.4-8.2) Albumin 1.6 g/dL (3.4-5.0) Albumin/Globulin Ratio 0.5 (1.0-1.7) Thyroid Stimulating Hormone (TSH) 2.676 uIU/mL (0.358-3.74) Test 08/22/18 12:03 Glucose (Fingerstick) 94 mg/dL (70-99) Microbiology 08/18/18 Blood Culture - Preliminary, Resulted NO GROWTH AFTER 4 DAYS Medications Current Medications Sodium Chloride 1,000 ml @ 100 mls/hr Q10H IV Last administered on 08/17/18at 06:55; Start 08/17/18 at 06:30; Stop 08/17/18 at 16:29; Status DC Ondansetron HCl (Zofran) 4 mg 1X ONCE IV Last administered on 08/17/18at 06:55; Start 08/17/18 at 06:30; Stop 08/17/18 at 06:31; Status DC Iohexol (Omnipaque 240 Mg/ml) 30 ml 1X ONCE PO Last administered on 08/17/18at 07:15; Start 08/17/18 at 07:15; Stop 08/17/18 at 07:16; Status DC Iohexol (Omnipaque 300 Mg/ml) 75 ml 1X ONCE IV Last administered on 08/17/18at 08:11; Start 08/17/18 at 07:15; Stop 08/17/18 at 07:16; Status DC Info (CONTRAST GIVEN -- Rx MONITORING) 1 each PRN DAILY PRN MC SEE COMMENTS; Start 08/17/18 at 07:15; Stop 08/19/18 at 07:14; Status DC Sodium Chloride 1,000 ml @ 1,000 mls/hr 1X ONCE IV Last administered on 08/17/18at 07:45; Start 08/17/18 at 07:45; Stop 08/17/18 at 08:44; Status DC Magnesium Sulfate/ Dextrose 100 ml @ 100 mls/hr 1X ONCE IV Last administered on 08/17/18at 14:55; Start 08/17/18 at 07:45; Stop 08/17/18 at 08:44; Status DC Potassium Chloride/Water 100 ml @ 100 mls/hr Q1H IV Last administered on 08/17/18at 09:23; Start 08/17/18 at 07:45; Stop 08/17/18 at 09:44; Status DC Ertapenem 50 ml @ 100 mls/hr 1X ONCE IV ; Start 08/17/18 at 09:15; Stop 08/17/18 at 09:44; Status UNV Meropenem 500 mg/ Sodium Chloride 50 ml @ 100 mls/hr 1X ONCE IV Last administered on 08/17/18at 10:53; Start 08/17/18 at 09:30; Stop 08/17/18 at 09:59; Status DC Ondansetron HCl (Zofran) 4 mg PRN Q8HRS PRN IV NAUSEA/VOMITING; Start 08/17/18 at 10:00; Stop 08/18/18 at 09:59; Status DC Morphine Sulfate (Morphine Sulfate) 4 mg PRN Q2HR PRN IV PAIN; Start 08/17/18 at 10:00; Stop 08/18/18 at 09:59; Status DC Meropenem 500 mg/ Sodium Chloride 50 ml @ 100 mls/hr Q8HRS IV Last administered on 08/22/18at 05:36; Start 08/17/18 at 14:00 Amino Acids/ Glycerin/ Electrolytes 1,000 ml @ 80 mls/hr [id number] IV Last administered on 08/17/18at 20:57; Start 08/17/18 at 20:15; Stop 08/19/18 at 10:57; Status DC Potassium Chloride/Sodium Chloride 1,000 ml @ 75 mls/hr 1X ONCE IV Last administered on 08/18/18at 11:26; Start 08/18/18 at 07:45; Stop 08/18/18 at 21:04; Status DC Magnesium Sulfate 50 ml @ 25 mls/hr 1X ONCE IV Last administered on 08/18/18at 13:50; Start 08/18/18 at 09:00; Stop 08/18/18 at 10:59; Status DC Famotidine (Pepcid Vial) 20 mg QHS IVP Last administered on 08/21/18at 22:03; Start 08/18/18 at 21:00 Info (Tpn Per Pharmacy) 1 each PRN DAILY PRN MC SEE COMMENTS Last administered on 08/22/18at 10:49; Start 08/18/18 at 13:15 Sodium Chloride 90 meq/Potassium Chloride 50 meq/ Potassium Phosphate 13.6 mmol/Magnesium Sulfate 10 meq/ Calcium Gluconate 10 meq/ Multivitamins 10 ml/Chromium/ Copper/Manganese/ Seleni/Zn 1 ml/ Total Parenteral Nutrition/Amino Acids/Dextrose/ Fat Emulsion Intravenous 1,512 ml @ 63 mls/hr TPN CONT IV Last administered on 08/19/18at 03:19; Start 08/18/18 at 22:00; Stop 08/19/18 at 21:59; Status DC Potassium Phosphate 10 mmol/ Dextrose 103.3333 ml @ 51.667 m... Q2H IV Last administered on 08/19/18at 12:06; Start 08/19/18 at 12:00; Stop 08/19/18 at 15:59; Status DC Calcium Gluconate 1000 mg/Dextrose 110 ml @ 220 mls/hr 1X ONCE IV Last administered on 08/19/18at 15:26; Start 08/19/18 at 15:00; Stop 08/19/18 at 15:29; Status DC Furosemide (Lasix) 20 mg 1X ONCE IVP Last administered on 08/19/18at 13:45; Start 08/19/18 at 13:15; Stop 08/19/18 at 13:16; Status DC Sodium Chloride 90 meq/Potassium Chloride 60 meq/ Potassium Phosphate 17 mmol/ Magnesium Sulfate 10 meq/Calcium Gluconate 15 meq/ Multivitamins 10 ml/Chromium/ Copper/Manganese/ Seleni/Zn 1 ml/ Total Parenteral Nutrition/Amino Acids/Dextrose/ Fat Emulsion Intravenous 1,512 ml @ 63 mls/hr TPN CONT IV Last administered on 08/19/18at 21:46; Start 08/19/18 at 22:00; Stop 08/20/18 at 21 :59; Status DC Dextrose (Dextrose 50%-Water Syringe) 12.5 gm PRN Q15MIN PRN IV SEE COMMENTS; Start 08/20/18 at 06:30 Adenosine (Adenocard) 6 mg 1X ONCE IV Last administered on 08/20/18at 07:45; Start 08/20/18 at 10:00; Stop 08/20/18 at 10:08; Status DC Sodium Phosphate 30 mmol/Dextrose 260 ml @ 65 mls/hr 1X ONCE IV Last administered on 08/20/18at 13:04; Start 08/20/18 at 13:00; Stop 08/20/18 at 16:59; Status DC Sodium Chloride 90 meq/Potassium Chloride 60 meq/ Potassium Phosphate 25 mmol/ Magnesium Sulfate 10 meq/Calcium Gluconate 10 meq/ Multivitamins 10 ml/Chromium/ Copper/Manganese/ Seleni/Zn 1 ml/ Total Parenteral Nutrition/Amino Acids/Dextrose/ Fat Emulsion Intravenous 1,512 ml @ 63 mls/hr TPN CONT IV Last administered on 08/20/18at 20:32; Start 08/20/18 at 22:00; Stop 08/21/18 at 21:59; Status DC Bisacodyl (Dulcolax Supp) 10 mg 1X ONCE IA Last administered on 08/21/18at 11:14; Start 08/21/18 at 09:45; Stop 08/21/18 at 09:46; Status DC Potassium Phosphate 15 mmol/ Sodium Chloride 255 ml @ 127.5 mls/ hr 1X ONCE IV Last administered on 08/21/18at 16:48; Start 08/21/18 at 15:00; Stop 08/21/18 at 16:59; Status DC Sodium Chloride 90 meq/Potassium Chloride 60 meq/ Potassium Phosphate 25 mmol/ Magnesium Sulfate 13 meq/Calcium Gluconate 10 meq/ Multivitamins 10 ml/Chromium/ Copper/Manganese/ Seleni/Zn 1 ml/ Total Parenteral Nutrition/Amino Acids/Dextrose/ Fat Emulsion Intravenous 1,512 ml @ 63 mls/hr TPN CONT IV Last administered on 08/21/18at 22:03; Start 08/21/18 at 22:00; Stop 08/22/18 at 21:59 Metoprolol Tartrate (Lopressor Vial) 5 mg PRN Q6HRS PRN IVP TACHYCARDIA; Start 08/22/18 at 10:00 Sodium Phosphate 30 mmol/Dextrose 260 ml @ 65 mls/hr 1X ONCE IV ; Start 08/22/18 at 11:00; Stop 08/22/18 at 14:59 Magnesium Sulfate 50 ml @ 25 mls/hr 1X ONCE IV Last administered on 08/22/18at 10:52; Start 08/22/18 at 11:00; Stop 08/22/18 at 12:59 Sodium Chloride 90 meq/Sodium Phosphate 15 mmol/ Potassium Chloride 35 meq/ Potassium Phosphate 25 mmol/ Magnesium Sulfate 18 meq/ Multivitamins 10 ml/Chromium/ Copper/Manganese/ Seleni/Zn 1 ml/ Total Parenteral Nutrition/Amino Acids/Dextrose/ Fat Emulsion Intravenous 1,512 ml @ 63 mls/hr TPN CONT IV ; Start 08/22/18 at 22:00; Stop 08/23/18 at 21:59 Active Scripts Active Avelox (Moxifloxacin Hcl) 400 Mg Tablet 1 Tab PO DAILY Diphenoxylate-Atropine Tablet (Diphenoxylate Hcl/Atropine) 1 Each Tablet 1 Tab PO PRN QID PRN 30 Days Famotidine 20 Mg Tablet 20 Mg PO QHS 60 Days Aspirin Ec (Aspirin) 81 Mg Tablet.dr 81 Mg PO DAILYWBKFT 30 Days Toprol Xl (Metoprolol Succinate) 50 Mg Tab.er.24h 50 Mg PO HS 30 Days Hydrocodone-Apap 5-325 (Hydrocodone Bit/Acetaminophen) 1 Tab Tablet 1 Tab PO PRN Q4HRS PRN Reported Multivitamins (Multivitamin) 1 Each Tablet 1 Each PO DAILY Vitamin D3 (Cholecalciferol (Vitamin D3)) 1,000 Unit Tablet 1,000 Unit PO DAILY Vitals/I & O Vital Sign - Last 24 Hours 08/21/18 08/21/18 08/21/18 08/21/18 15:07 19:44 20:00 23:56 Temp 98.2 98.0 97.8 98.2 98.0 97.8 Pulse 104 108 106 Resp 18 17 16 B/P (MAP) 119/71 (87) 112/62 (79) 107/65 (79) Pulse Ox 93 98 98 O2 Delivery Room Air Room Air Room Air Room Air 08/22/18 08/22/18 08/22/18 08/22/18 03:28 07:00 08:00 11:00 Temp 97.9 97.9 97.7 97.9 97.9 97.7 Pulse 100 99 98 Resp 16 18 18 B/P (MAP) 111/71 (84) 115/60 (78) 118/69 (85) Pulse Ox 97 100 97 O2 Delivery Room Air Room Air Room Air Room Air Intake and Output 08/21/18 08/21/18 08/22/18 14:59 22:59 06:59 Intake Total 1056 ml Output Total 750 ml 200 ml 350 ml Balance -750 ml -200 ml 706 ml Nutrition Consultation Dietary Evaluation: Recommendations by RD: Increase Calorie Intake, Protein supplementation, PPN/TPN Comments: Continue w/TPN per current order for nutrition needs REC Vit C, MVI for wound healing as able Advance diet as able to regular, note multiple food intolerances Expected Outcomes/Goals: to meet > 75% est nutr needs via TPN - met, goal ongoing Interpretation of weight loss: >10% in 6 months Malnutrition Findings: Muscle Mass (Severe): Severe Depletion Weight Status: Underweight ALLYN PATE MD Aug 22, 2018 12:57
--- NOTE | 2018-08-22 13:07 | PDOC ---
AMARILIS ABDI BRANCH ACCOUNT MANAGER 08/22/18 1307: SURGICAL PROGRESS NOTE Subjective minimal results with suppository yesterday tolerated NG clamping Vital Signs Vital Signs Date Time Temp Pulse Resp B/P (MAP) Pulse Ox O2 Delivery O2 Flow Rate FiO2 08/22/18 11:00 97.7 98 18 118/69 (85) 97 Room Air 97.7 I&O Intake and Output 08/22/18 07:00 Intake Total 1056 ml Output Total 1300 ml Balance -244 ml Intake Oral 100 ml Other 956 ml Output Urine Total 1100 ml Drainage Total 200 ml # Voids 1 General: Alert, Cooperative Abdomen: Soft, No tenderness Labs Laboratory Tests Test 08/20/18 18:04 08/20/18 23:08 08/21/18 06:01 08/21/18 06:20 Glucose (Fingerstick) 160 mg/dL (70-99) 132 mg/dL (70-99) 91 mg/dL (70-99) Sodium Level 141 mmol/L (136-145) Potassium Level 3.8 mmol/L (3.5-5.1) Chloride Level 104 mmol/L (98-107) Carbon Dioxide Level 28 mmol/L (21-32) Anion Gap 9 (6-14) Blood Urea Nitrogen 16 mg/dL (7-20) Creatinine 0.4 mg/dL (0.6-1.0) Estimated GFR (Cockcroft-Gault) 156.9 BUN/Creatinine Ratio 40 (6-20) Glucose Level 98 mg/dL (70-99) Calcium Level 7.0 mg/dL (8.5-10.1) Phosphorus Level 1.7 mg/dL (2.6-4.7) Magnesium Level 1.7 mg/dL (1.8-2.4) Total Bilirubin 0.3 mg/dL (0.2-1.0) Aspartate Amino Transf (AST/SGOT) 61 U/L (15-37) Alanine Aminotransferase (ALT/SGPT) 66 U/L (14-59) Alkaline Phosphatase 192 U/L (46-116) Total Protein 4.8 g/dL (6.4-8.2) Albumin 1.8 g/dL (3.4-5.0) Albumin/Globulin Ratio 0.6 (1.0-1.7) Test 08/21/18 11:48 08/21/18 18:24 08/22/18 06:00 08/22/18 06:22 Glucose (Fingerstick) 107 mg/dL (70-99) 111 mg/dL (70-99) 103 mg/dL (70-99) White Blood Count 3.6 x10^3/uL (4.0-11.0) Red Blood Count 3.11 x10^6/uL (3.50-5.40) Hemoglobin 9.6 g/dL (12.0-15.5) Hematocrit 27.8 % (36.0-47.0) Mean Corpuscular Volume 89 fL (79-100) Mean Corpuscular Hemoglobin 31 pg (25-35) Mean Corpuscular Hemoglobin Concent 34 g/dL (31-37) Red Cell Distribution Width 16.1 % (11.5-14.5) Platelet Count 190 x10^3/uL (140-400) Neutrophils (%) (Auto) 69 % (31-73) Lymphocytes (%) (Auto) 21 % (24-48) Monocytes (%) (Auto) 9 % (0-9) Eosinophils (%) (Auto) 1 % (0-3) Basophils (%) (Auto) 0 % (0-3) Neutrophils # (Auto) 2.5 x10^3uL (1.8-7.7) Lymphocytes # (Auto) 0.7 x10^3/uL (1.0-4.8) Monocytes # (Auto) 0.3 x10^3/uL (0.0-1.1) Eosinophils # (Auto) 0.0 x10^3/uL (0.0-0.7) Basophils # (Auto) 0.0 x10^3/uL (0.0-0.2) Test 08/22/18 07:50 08/22/18 12:03 Sodium Level 136 mmol/L (136-145) Potassium Level 4.7 mmol/L (3.5-5.1) Chloride Level 104 mmol/L (98-107) Carbon Dioxide Level 26 mmol/L (21-32) Anion Gap 6 (6-14) Blood Urea Nitrogen 15 mg/dL (7-20) Creatinine 0.3 mg/dL (0.6-1.0) Estimated GFR (Cockcroft-Gault) 218.7 BUN/Creatinine Ratio 50 (6-20) Glucose Level 106 mg/dL (70-99) Calcium Level 7.5 mg/dL (8.5-10.1) Phosphorus Level 1.9 mg/dL (2.6-4.7) Magnesium Level 1.6 mg/dL (1.8-2.4) Total Bilirubin 0.4 mg/dL (0.2-1.0) Aspartate Amino Transf (AST/SGOT) 92 U/L (15-37) Alanine Aminotransferase (ALT/SGPT) 89 U/L (14-59) Alkaline Phosphatase 192 U/L (46-116) Total Protein 4.9 g/dL (6.4-8.2) Albumin 1.6 g/dL (3.4-5.0) Albumin/Globulin Ratio 0.5 (1.0-1.7) Thyroid Stimulating Hormone (TSH) 2.676 uIU/mL (0.358-3.74) Glucose (Fingerstick) 94 mg/dL (70-99) Laboratory Tests Test 08/21/18 18:24 08/22/18 06:00 08/22/18 06:22 08/22/18 07:50 Glucose (Fingerstick) 111 mg/dL (70-99) 103 mg/dL (70-99) White Blood Count 3.6 x10^3/uL (4.0-11.0) Red Blood Count 3.11 x10^6/uL (3.50-5.40) Hemoglobin 9.6 g/dL (12.0-15.5) Hematocrit 27.8 % (36.0-47.0) Mean Corpuscular Volume 89 fL (79-100) Mean Corpuscular Hemoglobin 31 pg (25-35) Mean Corpuscular Hemoglobin Concent 34 g/dL (31-37) Red Cell Distribution Width 16.1 % (11.5-14.5) Platelet Count 190 x10^3/uL (140-400) Neutrophils (%) (Auto) 69 % (31-73) Lymphocytes (%) (Auto) 21 % (24-48) Monocytes (%) (Auto) 9 % (0-9) Eosinophils (%) (Auto) 1 % (0-3) Basophils (%) (Auto) 0 % (0-3) Neutrophils # (Auto) 2.5 x10^3uL (1.8-7.7) Lymphocytes # (Auto) 0.7 x10^3/uL (1.0-4.8) Monocytes # (Auto) 0.3 x10^3/uL (0.0-1.1) Eosinophils # (Auto) 0.0 x10^3/uL (0.0-0.7) Basophils # (Auto) 0.0 x10^3/uL (0.0-0.2) Sodium Level 136 mmol/L (136-145) Potassium Level 4.7 mmol/L (3.5-5.1) Chloride Level 104 mmol/L (98-107) Carbon Dioxide Level 26 mmol/L (21-32) Anion Gap 6 (6-14) Blood Urea Nitrogen 15 mg/dL (7-20) Creatinine 0.3 mg/dL (0.6-1.0) Estimated GFR (Cockcroft-Gault) 218.7 BUN/Creatinine Ratio 50 (6-20) Glucose Level 106 mg/dL (70-99) Calcium Level 7.5 mg/dL (8.5-10.1) Phosphorus Level 1.9 mg/dL (2.6-4.7) Magnesium Level 1.6 mg/dL (1.8-2.4) Total Bilirubin 0.4 mg/dL (0.2-1.0) Aspartate Amino Transf (AST/SGOT) 92 U/L (15-37) Alanine Aminotransferase (ALT/SGPT) 89 U/L (14-59) Alkaline Phosphatase 192 U/L (46-116) Total Protein 4.9 g/dL (6.4-8.2) Albumin 1.6 g/dL (3.4-5.0) Albumin/Globulin Ratio 0.5 (1.0-1.7) Thyroid Stimulating Hormone (TSH) 2.676 uIU/mL (0.358-3.74) Test 08/22/18 12:03 Glucose (Fingerstick) 94 mg/dL (70-99) Problem List Problems Medical Problems: (1) Pneumoperitoneum Status: Acute Assessment/Plan sbo checked residual-0 will remove NG, start clears d/w Dr Win, possible rehab with nutritional support EVANS PERERA MD 08/22/18 1619: SURGICAL PROGRESS NOTE Assessment/Plan Agree with above AMARILIS ABDI APRN Aug 22, 2018 13:07 EVANS PERERA MD Aug 22, 2018 16:19
--- NOTE | 2018-08-22 13:30 | NUR ---
Patient's NG tube was removed at 1330. Patient tolerated procedure well. Ice chips given. Will continue to monitor.
[2018-08-22] MEDS: FAMOTIDINE 20 MG/2 ML VIAL IVP SCH (21:27)
[2018-08-22] MEDS ORDERED: [UNRECOGNIZED DRUG - OTHER] IV SCH ×10 (22:00)
[2018-08-22] MEDS ORDERED: DEXTROSE 70% IV SCH ×10 (22:00)
[2018-08-22] MEDS ORDERED: TOTAL PARENTERAL NUTRITION IV SCH ×10 (22:00)
[2018-08-22] MEDS ORDERED: AMINO ACID IV SCH ×10 (22:00)
[2018-08-23 02:30] VITALS: BP 134/74
[2018-08-23] MEDS: MEROPENEM 500 MG in IV NORMAL SALINE 50ML 50 ML IV SCH ×3 (05:54→21:58)
[2018-08-23 05:55] LABS: ALBUMIN 1.7 g/dL (3.4-5.0); ALBUMIN/GLOBULIN RATIO 0.5 (1.0-1.7); CALCIUM 8.2 mg/dL (8.5-10.1); CREATININE 0.3 mg/dL (0.6-1.0); GFR 218.7; POTASSIUM 4.4 mmol/L (3.5-5.1); TOTAL BILIRUBIN 0.3 mg/dL (0.2-1.0); TOTAL PROTEIN 5.1 g/dL (6.4-8.2)
[2018-08-23 07:00] VITALS: BP 136/86
--- NOTE | 2018-08-23 08:25 | PDOC ---
Infectious Disease Note Subjective Subjective Rapid response called for tachycardia on 08/20, s/p adenosine and IVF bolus Transferred to telemetry floor Doing ok - NGT out. + Flatus No fevers TPN ROS ROS o/w neg Vital Sign Vital Signs Vital Signs Date Time Temp Pulse Resp B/P (MAP) Pulse Ox O2 Delivery O2 Flow Rate FiO2 08/23/18 07:00 97.5 100 14 136/86 (103) 94 Room Air 97.5 Physical Exam PHYSICAL EXAM GENERAL: Propped up in bed, alert, cachetic, smiling HEENT: Oral cavity moist NECK: No JVD LUNGS: Decreased breath sounds at the bases. HEART: S1, S2, regular ABDOMEN: Nondistended, soft, BS present EXTREMITIES: 1+ edema BLE, DERMATOLOGIC: Warm, dry, no generalized rash NEUROLOGY: Alert, responds appropriately LUE-PICC clean Labs Lab Laboratory Tests Test 08/22/18 12:03 08/22/18 18:39 08/22/18 23:37 08/23/18 05:15 Glucose (Fingerstick) 94 mg/dL (70-99) 130 mg/dL (70-99) 133 mg/dL (70-99) Sodium Level 137 mmol/L (136-145) Potassium Level 4.4 mmol/L (3.5-5.1) Chloride Level 103 mmol/L (98-107) Carbon Dioxide Level 28 mmol/L (21-32) Anion Gap 6 (6-14) Blood Urea Nitrogen 14 mg/dL (7-20) Creatinine 0.3 mg/dL (0.6-1.0) Estimated GFR (Cockcroft-Gault) 218.7 BUN/Creatinine Ratio 47 (6-20) Glucose Level 98 mg/dL (70-99) Calcium Level 8.2 mg/dL (8.5-10.1) Phosphorus Level 3.0 mg/dL (2.6-4.7) Magnesium Level 2.0 mg/dL (1.8-2.4) Total Bilirubin 0.3 mg/dL (0.2-1.0) Aspartate Amino Transf (AST/SGOT) 90 U/L (15-37) Alanine Aminotransferase (ALT/SGPT) 115 U/L (14-59) Alkaline Phosphatase 212 U/L (46-116) Total Protein 5.1 g/dL (6.4-8.2) Albumin 1.7 g/dL (3.4-5.0) Albumin/Globulin Ratio 0.5 (1.0-1.7) Triglycerides Level 128 mg/dL (0-150) Test 08/23/18 06:20 Glucose (Fingerstick) 112 mg/dL (70-99) Micro Microbiology 08/18/18 Blood Culture - Preliminary, Resulted NO GROWTH AFTER 3 DAYS Objective Assessment Cavitary mass in 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 Multiple cavitary nodules in the lung. AFB cultures negative in 03/2018. SVT Ongoing subjective weight loss, failure to thrive, nausea, vomiting, weakness, cachexia. Recurrent small bowel obstruction. Abnormal CT with questionable pneumoperitoneum.- better Protein-calorie malnutrition. History of rectal cancer, last colonoscopy 03/2014. History of irritable bowel syndrome. Bandemia/leukopenia - better Mild increase in LFTS - likely TPN Plan Plan of Care Continue Merrem (since 08/17) BC NGTD Monitor labs in am Supportive care D/w nursing ELADIO DWYER MD Aug 23, 2018 08:25
--- NOTE | 2018-08-23 08:43 | PDOC ---
PULMONARY PROGRESS NOTES Subjective PT NOT MORE SOA Vitals Vital Signs Date Time Temp Pulse Resp B/P (MAP) Pulse Ox O2 Delivery O2 Flow Rate FiO2 08/23/18 08:00 Room Air 08/23/18 07:00 97.5 100 14 136/86 (103) 94 97.5 ROS: No Nausea, No Chest Pain, No Abdominal Pain, No Increase Cough General: Alert, No acute distress Lungs: Clear Cardiovascular: S1, S2 Abdomen: Soft, Non-tender Extremities: No Edema Labs Laboratory Tests Test 08/21/18 11:48 08/21/18 18:24 08/22/18 06:00 08/22/18 06:22 Glucose (Fingerstick) 107 mg/dL (70-99) 111 mg/dL (70-99) 103 mg/dL (70-99) White Blood Count 3.6 x10^3/uL (4.0-11.0) Red Blood Count 3.11 x10^6/uL (3.50-5.40) Hemoglobin 9.6 g/dL (12.0-15.5) Hematocrit 27.8 % (36.0-47.0) Mean Corpuscular Volume 89 fL (79-100) Mean Corpuscular Hemoglobin 31 pg (25-35) Mean Corpuscular Hemoglobin Concent 34 g/dL (31-37) Red Cell Distribution Width 16.1 % (11.5-14.5) Platelet Count 190 x10^3/uL (140-400) Neutrophils (%) (Auto) 69 % (31-73) Lymphocytes (%) (Auto) 21 % (24-48) Monocytes (%) (Auto) 9 % (0-9) Eosinophils (%) (Auto) 1 % (0-3) Basophils (%) (Auto) 0 % (0-3) Neutrophils # (Auto) 2.5 x10^3uL (1.8-7.7) Lymphocytes # (Auto) 0.7 x10^3/uL (1.0-4.8) Monocytes # (Auto) 0.3 x10^3/uL (0.0-1.1) Eosinophils # (Auto) 0.0 x10^3/uL (0.0-0.7) Basophils # (Auto) 0.0 x10^3/uL (0.0-0.2) Test 08/22/18 07:50 08/22/18 12:03 08/22/18 18:39 08/22/18 23:37 Sodium Level 136 mmol/L (136-145) Potassium Level 4.7 mmol/L (3.5-5.1) Chloride Level 104 mmol/L (98-107) Carbon Dioxide Level 26 mmol/L (21-32) Anion Gap 6 (6-14) Blood Urea Nitrogen 15 mg/dL (7-20) Creatinine 0.3 mg/dL (0.6-1.0) Estimated GFR (Cockcroft-Gault) 218.7 BUN/Creatinine Ratio 50 (6-20) Glucose Level 106 mg/dL (70-99) Calcium Level 7.5 mg/dL (8.5-10.1) Phosphorus Level 1.9 mg/dL (2.6-4.7) Magnesium Level 1.6 mg/dL (1.8-2.4) Total Bilirubin 0.4 mg/dL (0.2-1.0) Aspartate Amino Transf (AST/SGOT) 92 U/L (15-37) Alanine Aminotransferase (ALT/SGPT) 89 U/L (14-59) Alkaline Phosphatase 192 U/L (46-116) Total Protein 4.9 g/dL (6.4-8.2) Albumin 1.6 g/dL (3.4-5.0) Albumin/Globulin Ratio 0.5 (1.0-1.7) Thyroid Stimulating Hormone (TSH) 2.676 uIU/mL (0.358-3.74) Glucose (Fingerstick) 94 mg/dL (70-99) 130 mg/dL (70-99) 133 mg/dL (70-99) Test 08/23/18 05:15 08/23/18 06:20 Sodium Level 137 mmol/L (136-145) Potassium Level 4.4 mmol/L (3.5-5.1) Chloride Level 103 mmol/L (98-107) Carbon Dioxide Level 28 mmol/L (21-32) Anion Gap 6 (6-14) Blood Urea Nitrogen 14 mg/dL (7-20) Creatinine 0.3 mg/dL (0.6-1.0) Estimated GFR (Cockcroft-Gault) 218.7 BUN/Creatinine Ratio 47 (6-20) Glucose Level 98 mg/dL (70-99) Calcium Level 8.2 mg/dL (8.5-10.1) Phosphorus Level 3.0 mg/dL (2.6-4.7) Magnesium Level 2.0 mg/dL (1.8-2.4) Total Bilirubin 0.3 mg/dL (0.2-1.0) Aspartate Amino Transf (AST/SGOT) 90 U/L (15-37) Alanine Aminotransferase (ALT/SGPT) 115 U/L (14-59) Alkaline Phosphatase 212 U/L (46-116) Total Protein 5.1 g/dL (6.4-8.2) Albumin 1.7 g/dL (3.4-5.0) Albumin/Globulin Ratio 0.5 (1.0-1.7) Triglycerides Level 128 mg/dL (0-150) Glucose (Fingerstick) 112 mg/dL (70-99) Laboratory Tests Test 08/22/18 12:03 08/22/18 18:39 08/22/18 23:37 08/23/18 05:15 Glucose (Fingerstick) 94 mg/dL (70-99) 130 mg/dL (70-99) 133 mg/dL (70-99) Sodium Level 137 mmol/L (136-145) Potassium Level 4.4 mmol/L (3.5-5.1) Chloride Level 103 mmol/L (98-107) Carbon Dioxide Level 28 mmol/L (21-32) Anion Gap 6 (6-14) Blood Urea Nitrogen 14 mg/dL (7-20) Creatinine 0.3 mg/dL (0.6-1.0) Estimated GFR (Cockcroft-Gault) 218.7 BUN/Creatinine Ratio 47 (6-20) Glucose Level 98 mg/dL (70-99) Calcium Level 8.2 mg/dL (8.5-10.1) Phosphorus Level 3.0 mg/dL (2.6-4.7) Magnesium Level 2.0 mg/dL (1.8-2.4) Total Bilirubin 0.3 mg/dL (0.2-1.0) Aspartate Amino Transf (AST/SGOT) 90 U/L (15-37) Alanine Aminotransferase (ALT/SGPT) 115 U/L (14-59) Alkaline Phosphatase 212 U/L (46-116) Total Protein 5.1 g/dL (6.4-8.2) Albumin 1.7 g/dL (3.4-5.0) Albumin/Globulin Ratio 0.5 (1.0-1.7) Triglycerides Level 128 mg/dL (0-150) Test 08/23/18 06:20 Glucose (Fingerstick) 112 mg/dL (70-99) Medications Active Scripts Medications Dose Route/Sig Max Daily Dose Days Date Category Avelox (Moxifloxacin Hcl) 400 Mg Tablet 1 Tab PO DAILY 05/17/18 Rx Diphenoxylate-Atropine Tablet (Diphenoxylate Hcl/Atropine) 1 Each Tablet 1 Tab PO PRN QID PRN 30 04/21/18 Rx Famotidine 20 Mg Tablet 20 Mg PO QHS 60 04/19/18 Rx Aspirin Ec (Aspirin) 81 Mg Tablet.dr 81 Mg PO DAILYWBKFT 30 04/19/18 Rx Toprol Xl (Metoprolol Succinate) 50 Mg Tab.er.24h 50 Mg PO HS 30 04/19/18 Rx Hydrocodone-Apap 5-325 (Hydrocodone Bit/Acetaminophen) 1 Tab Tablet 1 Tab PO PRN Q4HRS PRN 03/09/18 Rx Multivitamins (Multivitamin) 1 Each Tablet 1 Each PO DAILY 03/07/18 Reported Vitamin D3 (Cholecalciferol (Vitamin D3)) 1,000 Unit Tablet 1,000 Unit PO DAILY 03/07/18 Reported Impression . 1. Abnormal CT chest with a cavitary mass in the right chest, likely abscess. This is considerably reduced in size compared to the 03/2018 CT. D/W RADIOLOGY. Location of recent right lung abscess slightly inferior to previous one and as such new abscess. There is new pneumonia in RUL and tiny thin cavitary nodules in left lung. She h as distended stomach She likely has ongoing / recurrent aspiration form bowel obstruction contributing to recurrent lung abscess. 2. MALNUTRITION 3. No significant history of tobacco use. 4. Coffee ground NG aspirate 5. Pneumoperitonium 6. RECURRENT SBO Bronch cultures from Mar 2018 BRONCH CULTURE Final Final report BRONCH RES 1 Final Citrobacter freundii 4+ ANTIMICROBIAL SUSCEPTIBILITY Final Comment S = Susceptible; I = Intermediate; R = Resistant P = Positive; N = Negative MICS are expressed in micrograms per mL Antibiotic RSLT#1 RSLT#2 RSLT#3 RSLT#4 Amoxicillin/Clavulanic Acid R>=32 Cefazolin R>=64 Cefepime S<=0.12 Ceftriaxone R>=64 Cefuroxime R>=64 Ciprofloxacin S<=0.25 Gentamicin S<=1 Imipenem S<=0.25 Levofloxacin S<=0.12 Meropenem S<=0.25 Nitrofurantoin S<=16 Tetracycline S<=1 Tobramycin S<=1 Trimethoprim/Sulfa S<=20 Performed at: DA - [facility] [address], [place], [place] [id number] [place] Hewer: KAILASH Zarate MD, Phone: [phone] Plan . ANTI BX PER ID PT EVAL AND TREAT NUTRITIONAL SUPPORT WILL CONTINUE ANTIBX FOLLOW ID INPUT ARTURO ORTEGA MD Aug 23, 2018 08:43
--- NOTE | 2018-08-23 09:18 | PDOC ---
Subjective: Subjective: Tolerating clear liquids. +flatus, no stool, no pain. "I had a good night." Objective: Vital Signs: Vital Signs Date Time Temp Pulse Resp B/P (MAP) Pulse Ox O2 Delivery O2 Flow Rate FiO2 08/23/18 08:00 Room Air 08/23/18 07:00 97.5 100 14 136/86 (103) 94 97.5 Labs: Laboratory Tests Test 08/22/18 12:03 08/22/18 18:39 08/22/18 23:37 08/23/18 05:15 Glucose (Fingerstick) 94 mg/dL 130 mg/dL 133 mg/dL Sodium Level 137 mmol/L Potassium Level 4.4 mmol/L Chloride Level 103 mmol/L Carbon Dioxide Level 28 mmol/L Anion Gap 6 Blood Urea Nitrogen 14 mg/dL Creatinine 0.3 mg/dL Estimated GFR (Cockcroft-Gault) 218.7 BUN/Creatinine Ratio 47 Glucose Level 98 mg/dL Calcium Level 8.2 mg/dL Phosphorus Level 3.0 mg/dL Magnesium Level 2.0 mg/dL Total Bilirubin 0.3 mg/dL Aspartate Amino Transf (AST/SGOT) 90 U/L Alanine Aminotransferase (ALT/SGPT) 115 U/L Alkaline Phosphatase 212 U/L Total Protein 5.1 g/dL Albumin 1.7 g/dL Albumin/Globulin Ratio 0.5 Triglycerides Level 128 mg/dL Test 08/23/18 06:20 Glucose (Fingerstick) 112 mg/dL PE: GEN: NAD LUNGS: clear anteriorly HEART: borderline tachycardic ABD: BS less obvious today, soft, non-tender NEURO/PSYCH: A & O 3 A/P: Recurrent SBO, pulm abscess Anemia Abnormal LFTs H/o GERD, IBS, rectal cancer -- Advance diet per surgery. CT enterography prior to DC. LFTs fluctuating during admission, elevated again - ?related to TPN - liver unremarkable on CT on 08/17, s/p cholecystectomy - will review this with Dr. Mckeon. MARK UP Aug 23, 2018 09:18
[2018-08-23 10:42] VITALS: BP 125/67
--- NOTE | 2018-08-23 12:19 | NUR ---
SS following up with discharge planning. SS met with pt and daughter in room at 1600 on 08/22/2018. Pt's daughter agreeable to [facility] and reported that she would e-mail SS there choices. SS provided pt's daughter with contact information. SS awaiting response from pt's daughter at this time.
[2018-08-23] MEDS: TPN PER PHARMACY MC PRN (13:16)
--- NOTE | 2018-08-23 13:18 | NUR ---
Pharmacy TPN Dosing Note S: CHELSIE PINEDA is a 73 year old F Currently receiving Central Continuous TPN started 08/18/18 B:Pertinent PMH: SBO Height: 5 feet, 3 inches Weight: 44 kg Current diet: Clears LABS: Sodium: 137 Potassium: 4.4 Chloride: 103 Calcium: 8.2 Corrected Calcium: 10.04 Magnesium: 2 CO2: 28 SCr: 0.3 Glucose: 106-133 Albumin: 1.7 AST: 90 ALT: 115 TPN FORMULA: TPN TYPE: Central Continuous AMINO ACIDS: 60 gm DEXTROSE: 195 gm LIPIDS: 20 gm SODIUM CHLORIDE: 90 mEq SODIUM PHOSPHATE: 15 mmol POTASSIUM CHLORIDE: 35 mEq POTASSIUM PHOSPHATE: 25 mmol MAGNESIUM: 18 mEq MULTIPLE VITAMIN: 10 ml TRACE ELEMENTS: 1 ml(s) TPN PLAN: Continue same formula today. R: Continue TPN Will monitor electrolytes, glucose, and tolerance to TPN. Rebecca Orellana RPH, 08/23/18 [id number]
--- NOTE | 2018-08-23 13:37 | PDOC ---
PROGRESS NOTES Subjective Subjective Patient doing well NG tube out at this time. Patient has been up in chair. Planning for shelter versus rehabilitation care at discharge. Plan to continue TPN for 4-6 weeks. Monitor by mouth intake Objective Objective Vital Signs Date Time Temp Pulse Resp B/P (MAP) Pulse Ox O2 Delivery O2 Flow Rate FiO2 08/23/18 10:42 97.5 111 16 125/67 (86) 98 Room Air 97.5 Intake and Output 08/23/18 07:00 Intake Total 260 ml Output Total 2550 ml Balance -2290 ml IV Total 260 ml Output Urine Total 2550 ml Physical Exam Abdomen: Normal bowel sounds Heart: Regular rate Extremities: No edema General: Alert Lungs: Clear to auscultation Assessment Assessment Problems Medical Problems: (1) Pneumoperitoneum Status: Acute 1. Functional Small-bowel obstruction 2. Severe protein malnutrition. 3. Leukopenia. 4. Hyponatremia- resolved 5. Hypomagnesemia. 6. Hypokalemia- replacing 7. 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 Pt on Meropenem currently 8. SVT Plan Plan of Care Continue TPN planned for 4-6 weeks of treatment. Increase activity Acute rehabilitation versus shelter transfer when stable. Continue IV antibiotics. Increase activity with PT and OT. Consult Dr. Reece Comment Review of Relevant I have reviewed the following items jackie (where applicable) has been applied. Labs Laboratory Tests Test 08/21/18 18:24 08/22/18 06:00 08/22/18 06:22 08/22/18 07:50 Glucose (Fingerstick) 111 mg/dL (70-99) 103 mg/dL (70-99) White Blood Count 3.6 x10^3/uL (4.0-11.0) Red Blood Count 3.11 x10^6/uL (3.50-5.40) Hemoglobin 9.6 g/dL (12.0-15.5) Hematocrit 27.8 % (36.0-47.0) Mean Corpuscular Volume 89 fL (79-100) Mean Corpuscular Hemoglobin 31 pg (25-35) Mean Corpuscular Hemoglobin Concent 34 g/dL (31-37) Red Cell Distribution Width 16.1 % (11.5-14.5) Platelet Count 190 x10^3/uL (140-400) Neutrophils (%) (Auto) 69 % (31-73) Lymphocytes (%) (Auto) 21 % (24-48) Monocytes (%) (Auto) 9 % (0-9) Eosinophils (%) (Auto) 1 % (0-3) Basophils (%) (Auto) 0 % (0-3) Neutrophils # (Auto) 2.5 x10^3uL (1.8-7.7) Lymphocytes # (Auto) 0.7 x10^3/uL (1.0-4.8) Monocytes # (Auto) 0.3 x10^3/uL (0.0-1.1) Eosinophils # (Auto) 0.0 x10^3/uL (0.0-0.7) Basophils # (Auto) 0.0 x10^3/uL (0.0-0.2) Sodium Level 136 mmol/L (136-145) Potassium Level 4.7 mmol/L (3.5-5.1) Chloride Level 104 mmol/L (98-107) Carbon Dioxide Level 26 mmol/L (21-32) Anion Gap 6 (6-14) Blood Urea Nitrogen 15 mg/dL (7-20) Creatinine 0.3 mg/dL (0.6-1.0) Estimated GFR (Cockcroft-Gault) 218.7 BUN/Creatinine Ratio 50 (6-20) Glucose Level 106 mg/dL (70-99) Calcium Level 7.5 mg/dL (8.5-10.1) Phosphorus Level 1.9 mg/dL (2.6-4.7) Magnesium Level 1.6 mg/dL (1.8-2.4) Total Bilirubin 0.4 mg/dL (0.2-1.0) Aspartate Amino Transf (AST/SGOT) 92 U/L (15-37) Alanine Aminotransferase (ALT/SGPT) 89 U/L (14-59) Alkaline Phosphatase 192 U/L (46-116) Total Protein 4.9 g/dL (6.4-8.2) Albumin 1.6 g/dL (3.4-5.0) Albumin/Globulin Ratio 0.5 (1.0-1.7) Thyroid Stimulating Hormone (TSH) 2.676 uIU/mL (0.358-3.74) Test 08/22/18 12:03 08/22/18 18:39 08/22/18 23:37 08/23/18 05:15 Glucose (Fingerstick) 94 mg/dL (70-99) 130 mg/dL (70-99) 133 mg/dL (70-99) Sodium Level 137 mmol/L (136-145) Potassium Level 4.4 mmol/L (3.5-5.1) Chloride Level 103 mmol/L (98-107) Carbon Dioxide Level 28 mmol/L (21-32) Anion Gap 6 (6-14) Blood Urea Nitrogen 14 mg/dL (7-20) Creatinine 0.3 mg/dL (0.6-1.0) Estimated GFR (Cockcroft-Gault) 218.7 BUN/Creatinine Ratio 47 (6-20) Glucose Level 98 mg/dL (70-99) Calcium Level 8.2 mg/dL (8.5-10.1) Phosphorus Level 3.0 mg/dL (2.6-4.7) Magnesium Level 2.0 mg/dL (1.8-2.4) Total Bilirubin 0.3 mg/dL (0.2-1.0) Aspartate Amino Transf (AST/SGOT) 90 U/L (15-37) Alanine Aminotransferase (ALT/SGPT) 115 U/L (14-59) Alkaline Phosphatase 212 U/L (46-116) Total Protein 5.1 g/dL (6.4-8.2) Albumin 1.7 g/dL (3.4-5.0) Albumin/Globulin Ratio 0.5 (1.0-1.7) Triglycerides Level 128 mg/dL (0-150) Test 08/23/18 06:20 08/23/18 11:45 Glucose (Fingerstick) 112 mg/dL (70-99) 106 mg/dL (70-99) Laboratory Tests Test 08/22/18 18:39 08/22/18 23:37 08/23/18 05:15 08/23/18 06:20 Glucose (Fingerstick) 130 mg/dL (70-99) 133 mg/dL (70-99) 112 mg/dL (70-99) Sodium Level 137 mmol/L (136-145) Potassium Level 4.4 mmol/L (3.5-5.1) Chloride Level 103 mmol/L (98-107) Carbon Dioxide Level 28 mmol/L (21-32) Anion Gap 6 (6-14) Blood Urea Nitrogen 14 mg/dL (7-20) Creatinine 0.3 mg/dL (0.6-1.0) Estimated GFR (Cockcroft-Gault) 218.7 BUN/Creatinine Ratio 47 (6-20) Glucose Level 98 mg/dL (70-99) Calcium Level 8.2 mg/dL (8.5-10.1) Phosphorus Level 3.0 mg/dL (2.6-4.7) Magnesium Level 2.0 mg/dL (1.8-2.4) Total Bilirubin 0.3 mg/dL (0.2-1.0) Aspartate Amino Transf (AST/SGOT) 90 U/L (15-37) Alanine Aminotransferase (ALT/SGPT) 115 U/L (14-59) Alkaline Phosphatase 212 U/L (46-116) Total Protein 5.1 g/dL (6.4-8.2) Albumin 1.7 g/dL (3.4-5.0) Albumin/Globulin Ratio 0.5 (1.0-1.7) Triglycerides Level 128 mg/dL (0-150) Test 08/23/18 11:45 Glucose (Fingerstick) 106 mg/dL (70-99) Microbiology 08/18/18 Blood Culture - Final, Complete NO GROWTH AFTER 5 DAYS Medications Current Medications Sodium Chloride 1,000 ml @ 100 mls/hr Q10H IV Last administered on 08/17/18at 06:55; Start 08/17/18 at 06:30; Stop 08/17/18 at 16:29; Status DC Ondansetron HCl (Zofran) 4 mg 1X ONCE IV Last administered on 08/17/18at 06:55; Start 08/17/18 at 06:30; Stop 08/17/18 at 06:31; Status DC Iohexol (Omnipaque 240 Mg/ml) 30 ml 1X ONCE PO Last administered on 08/17/18at 07:15; Start 08/17/18 at 07:15; Stop 08/17/18 at 07:16; Status DC Iohexol (Omnipaque 300 Mg/ml) 75 ml 1X ONCE IV Last administered on 08/17/18at 08:11; Start 08/17/18 at 07:15; Stop 08/17/18 at 07:16; Status DC Info (CONTRAST GIVEN -- Rx MONITORING) 1 each PRN DAILY PRN MC SEE COMMENTS; Start 08/17/18 at 07:15; Stop 08/19/18 at 07:14; Status DC Sodium Chloride 1,000 ml @ 1,000 mls/hr 1X ONCE IV Last administered on 08/17/18at 07:45; Start 08/17/18 at 07:45; Stop 08/17/18 at 08:44; Status DC Magnesium Sulfate/ Dextrose 100 ml @ 100 mls/hr 1X ONCE IV Last administered on 08/17/18at 14:55; Start 08/17/18 at 07:45; Stop 08/17/18 at 08:44; Status DC Potassium Chloride/Water 100 ml @ 100 mls/hr Q1H IV Last administered on 08/17/18at 09:23; Start 08/17/18 at 07:45; Stop 08/17/18 at 09:44; Status DC Ertapenem 50 ml @ 100 mls/hr 1X ONCE IV ; Start 08/17/18 at 09:15; Stop 08/17/18 at 09:44; Status UNV Meropenem 500 mg/ Sodium Chloride 50 ml @ 100 mls/hr 1X ONCE IV Last administered on 08/17/18at 10:53; Start 08/17/18 at 09:30; Stop 08/17/18 at 09:59; Status DC Ondansetron HCl (Zofran) 4 mg PRN Q8HRS PRN IV NAUSEA/VOMITING; Start 08/17/18 at 10:00; Stop 08/18/18 at 09:59; Status DC Morphine Sulfate (Morphine Sulfate) 4 mg PRN Q2HR PRN IV PAIN; Start 08/17/18 at 10:00; Stop 08/18/18 at 09:59; Status DC Meropenem 500 mg/ Sodium Chloride 50 ml @ 100 mls/hr Q8HRS IV Last administered on 08/23/18at 05:54; Start 08/17/18 at 14:00 Amino Acids/ Glycerin/ Electrolytes 1,000 ml @ 80 mls/hr [id number] IV Last administered on 08/17/18at 20:57; Start 08/17/18 at 20:15; Stop 08/19/18 at 10:57; Status DC Potassium Chloride/Sodium Chloride 1,000 ml @ 75 mls/hr 1X ONCE IV Last administered on 08/18/18at 11:26; Start 08/18/18 at 07:45; Stop 08/18/18 at 21:04; Status DC Magnesium Sulfate 50 ml @ 25 mls/hr 1X ONCE IV Last administered on 08/18/18at 13:50; Start 08/18/18 at 09:00; Stop 08/18/18 at 10:59; Status DC Famotidine (Pepcid Vial) 20 mg QHS IVP Last administered on 08/22/18at 21:27; Start 08/18/18 at 21:00; Stop 08/23/18 at 09:15; Status DC Info (Tpn Per Pharmacy) 1 each PRN DAILY PRN MC SEE COMMENTS Last administered on 08/23/18at 13:16; Start 08/18/18 at 13:15 Sodium Chloride 90 meq/Potassium Chloride 50 meq/ Potassium Phosphate 13.6 mmol/Magnesium Sulfate 10 meq/ Calcium Gluconate 10 meq/ Multivitamins 10 ml/Chromium/ Copper/Manganese/ Seleni/Zn 1 ml/ Total Parenteral Nutrition/Amino Acids/Dextrose/ Fat Emulsion Intravenous 1,512 ml @ 63 mls/hr TPN CONT IV Last administered on 08/19/18at 03:19; Start 08/18/18 at 22:00; Stop 08/19/18 at 21:59; Status DC Potassium Phosphate 10 mmol/ Dextrose 103.3333 ml @ 51.667 m... Q2H IV Last administered on 08/19/18at 12:06; Start 08/19/18 at 12:00; Stop 08/19/18 at 15:59; Status DC Calcium Gluconate 1000 mg/Dextrose 110 ml @ 220 mls/hr 1X ONCE IV Last administered on 08/19/18at 15:26; Start 08/19/18 at 15:00; Stop 08/19/18 at 15:29; Status DC Furosemide (Lasix) 20 mg 1X ONCE IVP Last administered on 08/19/18at 13:45; Start 08/19/18 at 13:15; Stop 08/19/18 at 13:16; Status DC Sodium Chloride 90 meq/Potassium Chloride 60 meq/ Potassium Phosphate 17 mmol/ Magnesium Sulfate 10 meq/Calcium Gluconate 15 meq/ Multivitamins 10 ml/Chromium/ Copper/Manganese/ Seleni/Zn 1 ml/ Total Parenteral Nutrition/Amino A cids/Dextrose/ Fat Emulsion Intravenous 1,512 ml @ 63 mls/hr TPN CONT IV Last administered on 08/19/18at 21:46; Start 08/19/18 at 22:00; Stop 08/20/18 at 21:59; Status DC Dextrose (Dextrose 50%-Water Syringe) 12.5 gm PRN Q15MIN PRN IV SEE COMMENTS; Start 08/20/18 at 06:30 Adenosine (Adenocard) 6 mg 1X ONCE IV Last administered on 08/20/18at 07:45; Start 08/20/18 at 10:00; Stop 08/20/18 at 10:08; Status DC Sodium Phosphate 30 mmol/Dextrose 260 ml @ 65 mls/hr 1X ONCE IV Last administered on 08/20/18at 13:04; Start 08/20/18 at 13:00; Stop 08/20/18 at 16:59; Status DC Sodium Chloride 90 meq/Potassium Chloride 60 meq/ Potassium Phosphate 25 mmol/ Magnesium Sulfate 10 meq/Calcium Gluconate 10 meq/ Multivitamins 10 ml/Chromium/ Copper/Manganese/ Seleni/Zn 1 ml/ Total Parenteral Nutrition/Amino Acids/Dextrose/ Fat Emulsion Intravenous 1,512 ml @ 63 mls/hr TPN CONT IV Last administered on 08/20/18at 20:32; Start 08/20/18 at 22:00; Stop 08/21/18 at 21:59; Status DC Bisacodyl (Dulcolax Supp) 10 mg 1X ONCE WI Last administered on 08/21/18at 11:14; Start 08/21/18 at 09:45; Stop 08/21/18 at 09:46; Status DC Potassium Phosphate 15 mmol/ Sodium Chloride 255 ml @ 127.5 mls/ hr 1X ONCE IV Last administered on 08/21/18at 16:48; Start 08/21/18 at 15:00; Stop 08/21/18 at 16:59; Status DC Sodium Chloride 90 meq/Potassium Chloride 60 meq/ Potassium Phosphate 25 mmol/ Magnesium Sulfate 13 meq/Calcium Gluconate 10 meq/ Multivitamins 10 ml/Chromium/ Copper/Manganese/ Seleni/Zn 1 ml/ Total Parenteral Nutrition/Amino Acids/Dextrose/ Fat Emulsion Intravenous 1,512 ml @ 63 mls/hr TPN CONT IV Last administered on 08/21/18at 22:03; Start 08/21/18 at 22:00; Stop 08/22/18 at 21:59; Status DC Metoprolol Tartrate (Lopressor Vial) 5 mg PRN Q6HRS PRN IVP TACHYCARDIA Last administered on 08/22/18at 17:23; Start 08/22/18 at 10:00 Sodium Phosphate 30 mmol/Dextrose 260 ml @ 65 mls/hr 1X ONCE IV Last administered on 08/22/18at 14:13; Start 08/22/18 at 11:00; Stop 08/22/18 at 14:59; Status DC Magnesium Sulfate 50 ml @ 25 mls/hr 1X ONCE IV Last administered on 08/22/18at 10:52; Start 08/22/18 at 11:00; Stop 08/22/18 at 12:59; Status DC Sodium Chloride 90 meq/Sodium Phosphate 15 mmol/ Potassium Chloride 35 meq/ Potassium Phosphate 25 mmol/ Magnesium Sulfate 18 meq/ Multivitamins 10 ml/Chromium/ Copper/Manganese/ Seleni/Zn 1 ml/ Total Parenteral Nutrition/Amino Acids/Dextrose/ Fat Emulsion Intravenous 1,512 ml @ 63 mls/hr TPN CONT IV Las t administered on 08/22/18at 21:28; Start 08/22/18 at 22:00; Stop 08/23/18 at 21:59 Famotidine (Pepcid) 20 mg QHS PO ; Start 08/23/18 at 21:00 Sodium Chloride 90 meq/Sodium Phosphate 15 mmol/ Potassium Chloride 35 meq/ Potassium Phosphate 25 mmol/ Magnesium Sulfate 18 meq/ Multivitamins 10 ml/Chromium/ Copper/Manganese/ Seleni/Zn 1 ml/ Total Parenteral Nutrition/Amino Acids/Dextrose/ Fat Emulsion Intravenous 1,512 ml @ 63 mls/hr TPN CONT IV ; Start 08/23/18 at 22:00; Stop 08/24/18 at 21:59 Active Scripts Active Avelox (Moxifloxacin Hcl) 400 Mg Tablet 1 Tab PO DAILY Diphenoxylate-Atropine Tablet (Diphenoxylate Hcl/Atropine) 1 Each Tablet 1 Tab PO PRN QID PRN 30 Days Famotidine 20 Mg Tablet 20 Mg PO QHS 60 Days Aspirin Ec (Aspirin) 81 Mg Tablet.dr 81 Mg PO [id number] 30 Days Toprol Xl (Metoprolol Succinate) 50 Mg Tab.er.24h 50 Mg PO HS 30 Days Hydrocodone-Apap 5-325 (Hydrocodone Bit/Acetaminophen) 1 Tab Tablet 1 Tab PO PRN Q4HRS PRN Reported Multivitamins (Multivitamin) 1 Each Tablet 1 Each PO DAILY Vitamin D3 (Cholecalciferol (Vitamin D3)) 1,000 Unit Tablet 1,000 Unit PO DAILY Vitals/I & O Vital Sign - Last 24 Hours 08/22/18 08/22/18 08/22/18 08/22/18 15:00 17:23 18:10 19:40 Temp 97.4 98.2 97.4 98.2 Pulse 121 123 96 97 Resp 18 20 B/P (MAP) 131/82 (98) 102/61 129/78 (95) 125/68 (87) Pulse Ox 97 94 O2 Delivery Room Air Room Air 08/22/18 08/22/18 08/23/18 08/23/18 20:44 23:05 02:30 07:00 Temp 98.0 97.9 97.5 98.0 97.9 97.5 Pulse 95 98 100 Resp 18 18 14 B/P (MAP) 109/60 (76) 134/74 (94) 136/86 (103) Pulse Ox 97 97 94 O2 Delivery Room Air Room Air Room Air Room Air 08/23/18 08/23/18 08:00 10:42 Temp 97.5 97.5 Pulse 111 Resp 16 B/P (MAP) 125/67 (86) Pulse Ox 98 O2 Delivery Room Air Room Air Intake and Output 08/22/18 08/22/18 08/23/18 15:00 23:00 07:00 Intake Total 260 ml Output Total 400 ml 900 ml 1250 ml Balance -400 ml -640 ml -1250 ml Nutrition Consultation Dietary Evaluation: Recommendations by RD: Increase Calorie Intake, Protein supplementation, PPN/TPN Comments: Continue w/TPN per current order for nutrition needs REC Vit C, MVI for wound healing as able Advance diet as able to regular, note multiple food intolerances Expected Outcomes/Goals: to meet > 75% est nutr needs via TPN - met, goal ongoing Interpretation of weight loss: >10% in 6 months Malnutrition Findings: Muscle Mass (Severe): Severe Depletion Weight Status: Underweight ALLYN PATE MD Aug 23, 2018 13:37
[2018-08-23 14:51] VITALS: BP 96/61
[2018-08-23] MEDS ORDERED: IV NORMAL SALINE 500ML BAG 500 ML IV ONE (15:30)
--- NOTE | 2018-08-23 15:39 | NUR ---
Talked to Vijaya Monroy, cardiology [employer] & Dr. Win regarding patient's HR jumping up to 110's-120's while she is up in the chair & BP being 96/61. Orders received from Dr[address] Win.
--- NOTE | 2018-08-23 16:16 | PDOC ---
PROGRESS NOTES Subjective Subjective feels well, "belly is doing well", no pain, tolerating liquids, passing gas Objective Objective Vital Signs Date Time Temp Pulse Resp B/P (MAP) Pulse Ox O2 Delivery O2 Flow Rate FiO2 08/23/18 14:51 97.7 115 16 96/61 (73) 98 Room Air 97.7 Intake and Output 08/23/18 07:00 Intake Total 260 ml Output Total 2550 ml Balance -2290 ml IV Total 260 ml Output Urine Total 2550 ml Physical Exam Abdomen: Soft, No tenderness Heart: Regular rate Extremities: No clubbing, No cyanosis General: Alert, Oriented X3 Neuro: Normal speech Psych/Mental Status: Mental status NL Assessment Assessment Problems Medical Problems: (1) Pneumoperitoneum Status: Acute Plan Plan of Care Starla clears well, GI plan noted, no new surgical recs Comment Review of Relevant I have reviewed the following items jackie (where applicable) has been applied. Labs Laboratory Tests Test 08/21/18 18:24 08/22/18 06:00 08/22/18 06:22 08/22/18 07:50 Glucose (Fingerstick) 111 mg/dL (70-99) 103 mg/dL (70-99) White Blood Count 3.6 x10^3/uL (4.0-11.0) Red Blood Count 3.11 x10^6/uL (3.50-5.40) Hemoglobin 9.6 g/dL (12.0-15.5) Hematocrit 27.8 % (36.0-47.0) Mean Corpuscular Volume 89 fL (79-100) Mean Corpuscular Hemoglobin 31 pg (25-35) Mean Corpuscular Hemoglobin Concent 34 g/dL (31-37) Red Cell Distribution Width 16.1 % (11.5-14.5) Platelet Count 190 x10^3/uL (140-400) Neutrophils (%) (Auto) 69 % (31-73) Lymphocytes (%) (Auto) 21 % (24-48) Monocytes (%) (Auto) 9 % (0-9) Eosinophils (%) (Auto) 1 % (0-3) Basophils (%) (Auto) 0 % (0-3) Neutrophils # (Auto) 2.5 x10^3uL (1.8-7.7) Lymphocytes # (Auto) 0.7 x10^3/uL (1.0-4.8) Monocytes # (Auto) 0.3 x10^3/uL (0.0-1.1) Eosinophils # (Auto) 0.0 x10^3/uL (0.0-0.7) Basophils # (Auto) 0.0 x10^3/uL (0.0-0.2) Sodium Level 136 mmol/L (136-145) Potassium Level 4.7 mmol/L (3.5-5.1) Chloride Level 104 mmol/L (98-107) Carbon Dioxide Level 26 mmol/L (21-32) Anion Gap 6 (6-14) Blood Urea Nitrogen 15 mg/dL (7-20) Creatinine 0.3 mg/dL (0.6-1.0) Estimated GFR (Cockcroft-Gault) 218.7 BUN/Creatinine Ratio 50 (6-20) Glucose Level 106 mg/dL (70-99) Calcium Level 7.5 mg/dL (8.5-10.1) Phosphorus Level 1.9 mg/dL (2.6-4.7) Magnesium Level 1.6 mg/dL (1.8-2.4) Total Bilirubin 0.4 mg/dL (0.2-1.0) Aspartate Amino Transf (AST/SGOT) 92 U/L (15-37) Alanine Aminotransferase (ALT/SGPT) 89 U/L (14-59) Alkaline Phosphatase 192 U/L (46-116) Total Protein 4.9 g/dL (6.4-8.2) Albumin 1.6 g/dL (3.4-5.0) Albumin/Globulin Ratio 0.5 (1.0-1.7) Thyroid Stimulating Hormone (TSH) 2.676 uIU/mL (0.358-3.74) Test 08/22/18 12:03 08/22/18 18:39 08/22/18 23:37 08/23/18 05:15 Glucose (Fingerstick) 94 mg/dL (70-99) 130 mg/dL (70-99) 133 mg/dL (70-99) Sodium Level 137 mmol/L (136-145) Potassium Level 4.4 mmol/L (3.5-5.1) Chloride Level 103 mmol/L (98-107) Carbon Dioxide Level 28 mmol/L (21-32) Anion Gap 6 (6-14) Blood Urea Nitrogen 14 mg/dL (7-20) Creatinine 0.3 mg/dL (0.6-1.0) Estimated GFR (Cockcroft-Gault) 218.7 BUN/Creatinine Ratio 47 (6-20) Glucose Level 98 mg/dL (70-99) Calcium Level 8.2 mg/dL (8.5-10.1) Phosphorus Level 3.0 mg/dL (2.6-4.7) Magnesium Level 2.0 mg/dL (1.8-2.4) Total Bilirubin 0.3 mg/dL (0.2-1.0) Aspartate Amino Transf (AST/SGOT) 90 U/L (15-37) Alanine Aminotransferase (ALT/SGPT) 115 U/L (14-59) Alkaline Phosphatase 212 U/L (46-116) Total Protein 5.1 g/dL (6.4-8.2) Albumin 1.7 g/dL (3.4-5.0) Albumin/Globulin Ratio 0.5 (1.0-1.7) Triglycerides Level 128 mg/dL (0-150) Test 08/23/18 06:20 08/23/18 11:45 Glucose (Fingerstick) 112 mg/dL (70-99) 106 mg/dL (70-99) Laboratory Tests Test 08/22/18 18:39 08/22/18 23:37 08/23/18 05:15 08/23/18 06:20 Glucose (Fingerstick) 130 mg/dL (70-99) 133 mg/dL (70-99) 112 mg/dL (70-99) Sodium Level 137 mmol/L (136-145) Potassium Level 4.4 mmol/L (3.5-5.1) Chloride Level 103 mmol/L (98-107) Carbon Dioxide Level 28 mmol/L (21-32) Anion Gap 6 (6-14) Blood Urea Nitrogen 14 mg/dL (7-20) Creatinine 0.3 mg/dL (0.6-1.0) Estimated GFR (Cockcroft-Gault) 218.7 BUN/Creatinine Ratio 47 (6-20) Glucose Level 98 mg/dL (70-99) Calcium Level 8.2 mg/dL (8.5-10.1) Phosphorus Level 3.0 mg/dL (2.6-4.7) Magnesium Level 2.0 mg/dL (1.8-2.4) Total Bilirubin 0.3 mg/dL (0.2-1.0) Aspartate Amino Transf (AST/SGOT) 90 U/L (15-37) Alanine Aminotransferase (ALT/SGPT) 115 U/L (14-59) Alkaline Phosphatase 212 U/L (46-116) Total Protein 5.1 g/dL (6.4-8.2) Albumin 1.7 g/dL (3.4-5.0) Albumin/Globulin Ratio 0.5 (1.0-1.7) Triglycerides Level 128 mg/dL (0-150) Test 08/23/18 11:45 Glucose (Fingerstick) 106 mg/dL (70-99) Microbiology 08/18/18 Blood Culture - Final, Complete NO GROWTH AFTER 5 DAYS Medications Current Medications Sodium Chloride 1,000 ml @ 100 mls/hr Q10H IV Last administered on 08/17/18at 06:55; Start 08/17/18 at 06:30; Stop 08/17/18 at 16:29; Status DC Ondansetron HCl (Zofran) 4 mg 1X ONCE IV Last administered on 08/17/18at 06:55; Start 08/17/18 at 06:30; Stop 08/17/18 at 06:31; Status DC Iohexol (Omnipaque 240 Mg/ml) 30 ml 1X ONCE PO Last administered on 08/17/18at 07:15; Start 08/17/18 at 07:15; Stop 08/17/18 at 07:16; Status DC Iohexol (Omnipaque 300 Mg/ml) 75 ml 1X ONCE IV Last administered on 08/17/18at 08:11; Start 08/17/18 at 07:15; Stop 08/17/18 at 07:16; Status DC Info (CONTRAST GIVEN -- Rx MONITORING) 1 each PRN DAILY PRN MC SEE COMMENTS; Start 08/17/18 at 07:15; Stop 08/19/18 at 07:14; Status DC Sodium Chloride 1,000 ml @ 1,000 mls/hr 1X ONCE IV Last administered on 08/17/18at 07:45; Start 08/17/18 at 07:45; Stop 08/17/18 at 08:44; Status DC Magnesium Sulfate/ Dextrose 100 ml @ 100 mls/hr 1X ONCE IV Last administered on 08/17/18at 14:55; Start 08/17/18 at 07:45; Stop 08/17/18 at 08:44; Status DC Potassium Chloride/Water 100 ml @ 100 mls/hr Q1H IV Last administered on 08/17/18at 09:23; Start 08/17/18 at 07:45; Stop 08/17/18 at 09:44; Status DC Ertapenem 50 ml @ 100 mls/hr 1X ONCE IV ; Start 08/17/18 at 09:15; Stop 08/17/18 at 09:44; Status UNV Meropenem 500 mg/ Sodium Chloride 50 ml @ 100 mls/hr 1X ONCE IV Last administered on 08/17/18at 10:53; Start 08/17/18 at 09:30; Stop 08/17/18 at 09:59 ; Status DC Ondansetron HCl (Zofran) 4 mg PRN Q8HRS PRN IV NAUSEA/VOMITING; Start 08/17/18 at 10:00; Stop 08/18/18 at 09:59; Status DC Morphine Sulfate (Morphine Sulfate) 4 mg PRN Q2HR PRN IV PAIN; Start 08/17/18 at 10:00; Stop 08/18/18 at 09:59; Status DC Meropenem 500 mg/ Sodium Chloride 50 ml @ 100 mls/hr Q8HRS IV Last administered on 08/23/18at 14:51; Start 08/17/18 at 14:00 Amino Acids/ Glycerin/ Electrolytes 1,000 ml @ 80 mls/hr [id number] IV Last administered on 08/17/18at 20:57; Start 08/17/18 at 20:15; Stop 08/19/18 at 10:57; Status DC Potassium Chloride/Sodium Chloride 1,000 ml @ 75 mls/hr 1X ONCE IV Last administered on 08/18/18at 11:26; Start 08/18/18 at 07:45; Stop 08/18/18 at 21:04; Status DC Magnesium Sulfate 50 ml @ 25 mls/hr 1X ONCE IV Last administered on 08/18/18at 13:50; Start 08/18/18 at 09:00; Stop 08/18/18 at 10:59; Status DC Famotidine (Pepcid Vial) 20 mg QHS IVP Last administered on 08/22/18at 21:27; Start 08/18/18 at 21:00; Stop 08/23/18 at 09:15; Status DC Info (Tpn Per Pharmacy) 1 each PRN DAILY PRN MC SEE COMMENTS Last administered on 08/23/18at 13:16; Start 08/18/18 at 13:15 Sodium Chloride 90 meq/Potassium Chloride 50 meq/ Potassium Phosphate 13.6 mmol/Magnesium Sulfate 10 meq/ Calcium Gluconate 10 meq/ Multivitamins 10 ml/ Chromium/ Copper/Manganese/ Seleni/Zn 1 ml/ Total Parenteral Nutrition/Amino Acids/Dextrose/ Fat Emulsion Intravenous 1,512 ml @ 63 mls/hr TPN CONT IV Last administered on 08/19/18at 03:19; Start 08/18/18 at 22:00; Stop 08/19/18 at 21:59; Status DC Potassium Phosphate 10 mmol/ Dextrose 103.3333 ml @ 51.667 m... Q2H IV Last administered on 08/19/18at 12:06; Start 08/19/18 at 12:00; Stop 08/19/18 at 15:59; Status DC Calcium Gluconate 1000 mg/Dextrose 110 ml @ 220 mls/hr 1X ONCE IV Last administered on 08/19/18at 15:26; Start 08/19/18 at 15:00; Stop 08/19/18 at 15:29; Status DC Furosemide (Lasix) 20 mg 1X ONCE IVP Last administered on 08/19/18at 13:45; Start 08/19/18 at 13:15; Stop 08/19/18 at 13:16; Status DC Sodium Chloride 90 meq/Potassium Chloride 60 meq/ Potassium Phosphate 17 mmol/ Magnesium Sulfate 10 meq/Calcium Gluconate 15 meq/ Multivitamins 10 ml/Chromium/ Copper/Manganese/ Seleni/Zn 1 ml/ Total Parenteral Nutrition/Amino Acids/Dextrose/ Fat Emulsion Intravenous 1,512 ml @ 63 mls/hr TPN CONT IV Last administered on 08/19/18at 21:46; Start 08/19/18 at 22:00; Stop 08/20/18 at 21:59; Status DC Dextrose (Dextrose 50%-Water Syringe) 12.5 gm PRN Q15MIN PRN IV SEE COMMENTS; Start 08/20/18 at 06:30 Adenosine (Adenocard) 6 mg 1X ONCE IV Last administered on 08/20/18at 07:45; Start 08/20/18 at 10:00; Stop 08/20/18 at 10:08; Status DC Sodium Phosphate 30 mmol/Dextrose 260 ml @ 65 mls/hr 1X ONCE IV Last administered on 08/20/18at 13:04; Start 08/20/18 at 13:00; Stop 08/20/18 at 16:59; Status DC Sodium Chloride 90 meq/Potassium Chloride 60 meq/ Potassium Phosphate 25 mmol/ Magnesium Sulfate 10 meq/Calcium Gluconate 10 meq/ Multivitamins 10 ml/Chromium/ Copper/Manganese/ Seleni/Zn 1 ml/ Total Parenteral Nutrition/Amino Acids/Dextrose/ Fat Emulsion Intravenous 1,512 ml @ 63 mls/hr TPN CONT IV Last administered on 08/20/18at 20:32; Start 08/20/18 at 22:00; Stop 08/21/18 at 21:59; Status DC Bisacodyl (Dulcolax Supp) 10 mg 1X ONCE [place] Last administered on 08/21/18at 11:14; Start 08/21/18 at 09:45; Stop 08/21/18 at 09:46; Status DC Potassium Phosphate 15 mmol/ Sodium Chloride 255 ml @ 127.5 mls/ hr 1X ONCE IV Last administered on 08/21/18at 16:48; Start 08/21/18 at 15:00; Stop 08/21/18 at 16:59; Status DC Sodium Chloride 90 meq/Potassium Chloride 60 meq/ Potassium Phosphate 25 mmol/ Magnesium Sulfate 13 meq/Calcium Gluconate 10 meq/ Multivitamins 10 ml/Chromium/ Copper/Manganese/ Seleni/Zn 1 ml/ Total Parenteral Nutrition/Amino Acids/Dextrose/ Fat Emulsion Intravenous 1,512 ml @ 63 mls/hr TPN CONT IV Last administered on 08/21/18at 22:03; Start 08/21/18 at 22:00; Stop 08/22/18 at 21:59; Status DC Metoprolol Tartrate (Lopressor Vial) 5 mg PRN Q6HRS PRN IVP TACHYCARDIA Last administered on 08/22/18at 17:23; Start 08/22/18 at 10:00 Sodium Phosphate 30 mmol/Dextrose 260 ml @ 65 mls/hr 1X ONCE IV Last administered on 08/22/18at 14:13; Start 08/22/18 at 11:00; Stop 08/22/18 at 14:59; Status DC Magnesium Sulfate 50 ml @ 25 mls/hr 1X ONCE IV Last administered on 08/22/18at 10:52; Start 08/22/18 at 11:00; Stop 08/22/18 at 12:59; Status DC Sodium Chloride 90 meq/Sodium Phosphate 15 mmol/ Potassium Chloride 35 meq/ Potassium Phosphate 25 mmol/ Magnesium Sulfate 18 meq/ Multivitamins 10 ml/Chromium/ Copper/Manganese/ Seleni/Zn 1 ml/ Total Parenteral Nutrition/Amino Acids/Dextrose/ Fat Emulsion Intravenous 1,512 ml @ 63 mls/hr TPN CONT IV Last administered on 08/22/18at 21:28; Start 08/22/18 at 22:00; Stop 08/23/18 at 21:59 Famotidine (Pepcid) 20 mg QHS PO ; Start 08/23/18 at 21:00 Sodium Chloride 90 meq/Sodium Phosphate 15 mmol/ Potassium Chloride 35 meq/ Potassium Phosphate 25 mmol/ Magnesium Sulfate 18 meq/ Multivitamins 10 ml/Chromium/ Copper/Manganese/ Seleni/Zn 1 ml/ Total Parenteral Nutrition/Amino Acids/Dextrose/ Fat Emulsion Intravenous 1,512 ml @ 63 mls/hr TPN CONT IV ; Start 08/23/18 at 22:00; Stop 08/24/18 at 21:59 Vitamin D (Vitamin D3) 1,000 unit DAILY PO ; Start 08/23/18 at 16:00 Non-Formulary Medication (Multivitamin (Multivitamins)) 1 each DAILY PO ; Start 08/24/18 at 09:00; Status UNV Metoprolol Tartrate (Lopressor) 12.5 mg BID PO ; Start 08/23/18 at 15:30 Sodium Chloride 500 ml @ 500 mls/hr 1X ONCE IV ; Start 08/23/18 at 15:30; Stop 08/23/18 at 16:29 Active Scripts Active Avelox (Moxifloxacin Hcl) 400 Mg Tablet 1 Tab PO DAILY Diphenoxylate-Atropine Tablet (Diphenoxylate Hcl/Atropine) 1 Each Tablet 1 Tab PO PRN QID PRN 30 Days Famotidine 20 Mg Tablet 20 Mg PO QHS 60 Days Aspirin Ec (Aspirin) 81 Mg Tablet. 81 Mg PO DAILYWBKFT 30 Days Toprol Xl (Metoprolol Succinate) 50 Mg Tab.er.24h 50 Mg PO HS 30 Days Hydrocodone-Apap 5-325 (Hydrocodone Bit/Acetaminophen) 1 Tab Tablet 1 Tab PO PRN Q4HRS PRN Reported Multivitamins (Multivitamin) 1 Each Tablet 1 Each PO DAILY Vitamin D3 (Cholecalciferol (Vitamin D3)) 1,000 Unit Tablet 1,000 Unit PO DAILY Vitals/I & O Vital Sign - Last 24 Hours 08/22/18 08/22/18 08/22/18 08/22/18 17:23 18:10 19:40 20:44 Temp 98.2 98.2 Pulse 123 96 97 Resp 20 B/P (MAP) 102/61 129/78 (95) 125/68 (87) Pulse Ox 94 O2 Delivery Room Air Room Air 08/22/18 08/23/18 08/23/18 08/23/18 23:05 02:30 07:00 08:00 Temp 98.0 97.9 97.5 98.0 97.9 97.5 Pulse 95 98 100 Resp 18 18 14 B/P (MAP) 109/60 (76) 134/74 (94) 136/86 (103) Pulse Ox 97 97 94 O2 Delivery Room Air Room Air Room Air Room Air 08/23/18 08/23/18 10:42 14:51 Temp 97.5 97.7 97.5 97.7 Pulse 111 115 Resp 16 16 B/P (MAP) 125/67 (86) 96/61 (73) Pulse Ox 98 98 O2 Delivery Room Air Room Air Intake and Output 08/22/18 08/22/18 08/23/18 15:00 23:00 07:00 Intake Total 260 ml Output Total 400 ml 900 ml 1250 ml Balance -400 ml -640 ml -1250 ml Nutrition Consultation Dietary Evaluation: Recommendations by RD: Increase Calorie Intake, Protein supplementation, PPN/TPN Comments: Continue w/TPN per current order for nutrition needs REC Vit C, MVI for wound healing as able Advance diet as able to regular, note multiple food intolerances Expected Outcomes/Goals: to meet > 75% est nutr needs via TPN - met, goal ongoing Interpretation of weight loss: >10% in 6 months Malnutrition Findings: Muscle Mass (Severe): Severe Depletion Weight Status: Underweight EVANS PERERA MD Aug 23, 2018 16:15
[2018-08-23] MEDS: CHOLECALCIFEROL (VITAMIN D3) 1,000 UNIT TABLET PO SCH (16:21)
[2018-08-23] MEDS: METOPROLOL TART IMMED RELEASE 25 MG TABLET. PO SCH ×2 (16:21→22:01)
[2018-08-23 19:45] VITALS: BP 108/54
[2018-08-23] MEDS: FAMOTIDINE 20 MG TABLET. PO SCH (21:59)
[2018-08-23 22:00] VITALS: BP 134/75
[2018-08-23] MEDS ORDERED: [UNRECOGNIZED DRUG - OTHER] IV SCH ×10 (22:00)
[2018-08-23] MEDS ORDERED: DEXTROSE 70% IV SCH ×10 (22:00)
[2018-08-23] MEDS ORDERED: TOTAL PARENTERAL NUTRITION IV SCH ×10 (22:00)
[2018-08-23] MEDS ORDERED: AMINO ACID IV SCH ×10 (22:00)
[2018-08-24 02:08] VITALS: BP 106/58
[2018-08-24] MEDS: MEROPENEM 500 MG in IV NORMAL SALINE 50ML 50 ML IV SCH ×3 (05:27→21:28)
[2018-08-24 06:40] LABS: CALCIUM 7.8 mg/dL (8.5-10.1); CREATININE 0.3 mg/dL (0.6-1.0); GFR 218.7; MAGNESIUM 1.8 mg/dL (1.8-2.4); PHOSPHORUS 2.8 mg/dL (2.6-4.7)
[2018-08-24 06:43] LABS: POTASSIUM 3.9 mmol/L (3.5-5.1)
[2018-08-24 07:19] VITALS: BP 133/72
[2018-08-24] MEDS ORDERED: IOHEXOL 300 MG/ML 100ML VIAL. IV ONE (08:15)
[2018-08-24] MEDS ORDERED: CONTRAST GIVEN. MC PRN (08:30)
--- NOTE | 2018-08-24 08:49 | PDOC ---
Infectious Disease Note Subjective Subjective Rapid response called for tachycardia on 08/20, s/p adenosine and IVF bolus Transferred to telemetry floor Currently doing ok - some + Flatus. Drinking contrast No fevers/C/SOA/rash TPN ROS ROS o/w Vital Sign Vital Signs Vital Signs Date Time Temp Pulse Resp B/P (MAP) Pulse Ox O2 Delivery O2 Flow Rate FiO2 08/24/18 07:19 97.3 91 14 133/72 (92) 97 Room Air 97.3 Physical Exam PHYSICAL EXAM GENERAL: Propped up in bed, alert, cachetic, smiling HEENT: Oral cavity moist NECK: No JVD LUNGS: Decreased breath sounds at the bases. HEART: S1, S2, regular ABDOMEN: Nondistended, soft, BS present EXTREMITIES: 1+ edema BLE, DERMATOLOGIC: Warm, dry, no generalized rash NEUROLOGY: Alert, responds appropriately LUE-PICC clean Labs Lab Laboratory Tests Test 08/23/18 11:45 08/23/18 17:16 08/24/18 00:31 08/24/18 05:50 Glucose (Fingerstick) 106 mg/dL (70-99) 119 mg/dL (70-99) 130 mg/dL (70-99) Sodium Level 136 mmol/L (136-145) Potassium Level 3.9 mmol/L (3.5-5.1) Chloride Level 103 mmol/L (98-107) Carbon Dioxide Level 26 mmol/L (21-32) Anion Gap 7 (6-14) Blood Urea Nitrogen 16 mg/dL (7-20) Creatinine 0.3 mg/dL (0.6-1.0) Estimated GFR (Cockcroft-Gault) 218.7 Glucose Level 103 mg/dL (70-99) Calcium Level 7.8 mg/dL (8.5-10.1) Phosphorus Level 2.8 mg/dL (2.6-4.7) Magnesium Level 1.8 mg/dL (1.8-2.4) Test 08/24/18 06:48 Glucose (Fingerstick) 94 mg/dL (70-99) Micro Microbiology 08/18/18 Blood Culture - Preliminary, Resulted NO GROWTH AFTER 3 DAYS Objective Assessment 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 Multiple cavitary nodules in the lung. AFB cultures negative in 03/2018. SVT Ongoing subjective weight loss, failure to thrive, nausea, vomiting, weakness, cachexia. Recurrent small bowel obstruction. Abnormal CT with questionable pneumoperitoneum.- better Protein-calorie malnutrition. History of rectal cancer, last colonoscopy 03/2014. History of irritable bowel syndrome. Bandemia/leukopenia - better Mild increase in LFTS - likely TPN Transaminitis - better Plan Plan of Care Continue Merrem (since 08/17) LFTs ordered this am some better F/u CT scan - NGTD Monitor labs in am Supportive care D/w nursing D/w ELADIO DWYER MD Aug 24, 2018 08:49
[2018-08-24] MEDS ORDERED: NON FORMULARY ITEM (Multivitamin (Multivitamins) 1 EACH) PO SCH (09:00)
--- NOTE | 2018-08-24 09:07 | PDOC ---
PULMONARY PROGRESS NOTES Subjective PT WITH COUGH NON PRODUCTIVE Vitals Vital Signs Date Time Temp Pulse Resp B/P (MAP) Pulse Ox O2 Delivery O2 Flow Rate FiO2 08/24/18 07:19 97.3 91 14 133/72 (92) 97 Room Air 97.3 ROS: No Nausea, No Chest Pain, No Abdominal Pain, No Increase Cough General: Alert, No acute distress Lungs: Clear Cardiovascular: S1, S2 Abdomen: Soft, Non-tender Extremities: No Edema Labs Laboratory Tests Test 08/22/18 12:03 08/22/18 18:39 08/22/18 23:37 08/23/18 05:15 Glucose (Fingerstick) 94 mg/dL (70-99) 130 mg/dL (70-99) 133 mg/dL (70-99) Sodium Level 137 mmol/L (136-145) Potassium Level 4.4 mmol/L (3.5-5.1) Chloride Level 103 mmol/L (98-107) Carbon Dioxide Level 28 mmol/L (21-32) Anion Gap 6 (6-14) Blood Urea Nitrogen 14 mg/dL (7-20) Creatinine 0.3 mg/dL (0.6-1.0) Estimated GFR (Cockcroft-Gault) 218.7 BUN/Creatinine Ratio 47 (6-20) Glucose Level 98 mg/dL (70-99) Calcium Level 8.2 mg/dL (8.5-10.1) Phosphorus Level 3.0 mg/dL (2.6-4.7) Magnesium Level 2.0 mg/dL (1.8-2.4) Total Bilirubin 0.3 mg/dL (0.2-1.0) Aspartate Amino Transf (AST/SGOT) 90 U/L (15-37) Alanine Aminotransferase (ALT/SGPT) 115 U/L (14-59) Alkaline Phosphatase 212 U/L (46-116) Total Protein 5.1 g/dL (6.4-8.2) Albumin 1.7 g/dL (3.4-5.0) Albumin/Globulin Ratio 0.5 (1.0-1.7) Triglycerides Level 128 mg/dL (0-150) Test 08/23/18 06:20 08/23/18 11:45 08/23/18 17:16 08/24/18 00:31 Glucose (Fingerstick) 112 mg/dL (70-99) 106 mg/dL (70-99) 119 mg/dL (70-99) 130 mg/dL (70-99) Test 08/24/18 05:50 08/24/18 06:48 Sodium Level 136 mmol/L (136-145) Potassium Level 3.9 mmol/L (3.5-5.1) Chloride Level 103 mmol/L (98-107) Carbon Dioxide Level 26 mmol/L (21-32) Anion Gap 7 (6-14) Blood Urea Nitrogen 16 mg/dL (7-20) Creatinine 0.3 mg/dL (0.6-1.0) Estimated GFR (Cockcroft-Gault) 218.7 Glucose Level 103 mg/dL (70-99) Calcium Level 7.8 mg/dL (8.5-10.1) Phosphorus Level 2.8 mg/dL (2.6-4.7) Magnesium Level 1.8 mg/dL (1.8-2.4) Glucose (Fingerstick) 94 mg/dL (70-99) Laboratory Tests Test 08/23/18 11:45 08/23/18 17:16 08/24/18 00:31 08/24/18 05:50 Glucose (Fingerstick) 106 mg/dL (70-99) 119 mg/dL (70-99) 130 mg/dL (70-99) Sodium Level 136 mmol/L (136-145) Potassium Level 3.9 mmol/L (3.5-5.1) Chloride Level 103 mmol/L (98-107) Carbon Dioxide Level 26 mmol/L (21-32) Anion Gap 7 (6-14) Blood Urea Nitrogen 16 mg/dL (7-20) Creatinine 0.3 mg/dL (0.6-1.0) Estimated GFR (Cockcroft-Gault) 218.7 Glucose Level 103 mg/dL (70-99) Calcium Level 7.8 mg/dL (8.5-10.1) Phosphorus Level 2.8 mg/dL (2.6-4.7) Magnesium Level 1.8 mg/dL (1.8-2.4) Test 08/24/18 06:48 Glucose (Fingerstick) 94 mg/dL (70-99) Medications Active Scripts Medications Dose Route/Sig Max Daily Dose Days Date Category Avelox (Moxifloxacin Hcl) 400 Mg Tablet 1 Tab PO DAILY 05/17/18 Rx Diphenoxylate-Atropine Tablet (Diphenoxylate Hcl/Atropine) 1 Each Tablet 1 Tab PO PRN QID PRN 30 04/21/18 Rx Famotidine 20 Mg Tablet 20 Mg PO QHS 60 04/19/18 Rx Aspirin Ec (Aspirin) 81 Mg Tablet.dr 81 Mg PO DAILYWBKFT 30 04/19/18 Rx Toprol Xl (Metoprolol Succinate) 50 Mg Tab.er.24h 50 Mg PO HS 30 04/19/18 Rx Hydrocodone-Apap 5-325 (Hydrocodone Bit/Acetaminophen) 1 Tab Tablet 1 Tab PO PRN Q4HRS PRN 03/09/18 Rx Multivitamins (Multivitamin) 1 Each Tablet 1 Each PO DAILY 03/07/18 Reported Vitamin D3 (Cholecalciferol (Vitamin D3)) 1,000 Unit Tablet 1,000 Unit PO DAILY 03/07/18 Reported Impression . 1. Abnormal CT chest with a cavitary mass in the right chest, likely abscess. This is considerably reduced in size compared to the 03/2018 CT. D/W RADIOLOGY. Location of recent right lung abscess slightly inferior to previous one and as such new abscess. There is new pneumonia in RUL and tiny thin cavitary nodules in left lung. She has distended stomach She likely has ongoing / recurrent aspiration form bowel obstruction contributing to recurrent lung abscess. 2. MALNUTRITION 3. No significant history of tobacco use. 4. Coffee ground NG aspirate 5. Pneumoperitonium 6. RECURRENT SBO Bronch cultures from Mar 2018 BRONCH CULTURE Final Final report BRONCH RES 1 Final Citrobacter freundii 4+ ANTIMICROBIAL SUSCEPTIBILITY Final Comment S = Susceptible; I = Intermediate; R = Resistant P = Positive; N = Negative MICS are expressed in micrograms per mL Antibiotic RSLT#1 RSLT#2 RSLT#3 RSLT#4 Amoxicillin/Clavulanic Acid R>=32 Cefazolin R>=64 Cefepime S<=0.12 Ceftriaxone R>=64 Cefuroxime R>=64 Ciprofloxacin S<=0.25 Gentamicin S<=1 Imipenem S<=0.25 Levofloxacin S<=0.12 Meropenem S<=0.25 Nitrofurantoin S<=16 Tetracycline S<=1 Tobramycin S<=1 Trimethoprim/Sulfa S<=20 Performed at: DA - [facility] [address], [place], [place] [id number] Patient Centered Care Specialist: KAILASH Zarate MD, Phone: [phone] Plan . CT CHEST TODAY ANTI BX PER ID PT EVAL AND TREAT NUTRITIONAL SUPPORT WILL CONTINUE ANTIBX FOLLOW ID INPUT ARTURO ORTEGA MD Aug 24, 2018 09:07
--- NOTE | 2018-08-24 09:18 | PDOC ---
Subjective: Subjective: Drinking contrast for CTE. +flatus, no stool Says ate chicken and carrots yesterday (though still has clears ordered). Objective: Vital Signs: Vital Signs Date Time Temp Pulse Resp B/P (MAP) Pulse Ox O2 Delivery O2 Flow Rate FiO2 08/24/18 07:19 97.3 91 14 133/72 (92) 97 Room Air 97.3 Labs: Laboratory Tests Test 08/23/18 11:45 08/23/18 17:16 08/24/18 00:31 08/24/18 05:50 Glucose (Fingerstick) 106 mg/dL 119 mg/dL 130 mg/dL Sodium Level 136 mmol/L Potassium Level 3.9 mmol/L Chloride Level 103 mmol/L Carbon Dioxide Level 26 mmol/L Anion Gap 7 Blood Urea Nitrogen 16 mg/dL Creatinine 0.3 mg/dL Estimated GFR (Cockcroft-Gault) 218.7 Glucose Level 103 mg/dL Calcium Level 7.8 mg/dL Phosphorus Level 2.8 mg/dL Magnesium Level 1.8 mg/dL Test 08/24/18 06:48 Glucose (Fingerstick) 94 mg/dL PE: GEN: NAD LUNGS: room air HEART: RRR ABD: S/ND/NT NEURO/PSYCH: A & O 3 A/P: Recurrent SBO, pulm abscess Abnormal LFTs -- Await imaging. Recheck of LFTs pending. MARK UP Aug 24, 2018 09:18
[2018-08-24 09:20] LABS: ALBUMIN 1.6 g/dL (3.4-5.0); DIRECT BILIRUBIN 0.1 mg/dL (0.0-0.2); TOTAL BILIRUBIN 0.2 mg/dL (0.2-1.0); TOTAL PROTEIN 4.5 g/dL (6.4-8.2)
--- NOTE | 2018-08-24 09:57 | CONS ---
DATE OF CONSULTATION: 08/23/2018 ATTENDING PHYSICIAN: Dr. Manish Win. The patient was seen at the request of Dr. Win for rehab evaluation. HISTORY OF PRESENT ILLNESS: This is a 73-year-old female with a recurrent history of nausea, vomiting, diarrhea, weight loss with suspected small-bowel obstruction at least about two hospitalizations in the last year for similar symptoms requiring decompression, but no surgery. The patient for about 3-4 weeks prior to the present hospitalization on 08/17/2018 having increasing nausea and abdominal distention and 24 hours prior to the admission, she began having nausea and vomiting and was admitted through the Emergency Room. She was noted with dehydration and severe protein malnutrition. The patient required NG tube placement for decompression. The patient had the NG tube taken out planning for her to go to custodial care unit, at the time of discharge TPN for about 4-6 weeks. The patient was also treated during this hospitalization for functional small-bowel obstruction and leukopenia, hyponatremia, hypomagnesemia, hypokalemia, pulmonary abscess versus metastatic carcinoma. The patient admits some soreness in her bottom while sitting for a while. She apparently had skin breakdown in her bottom area. The patient also with known pathological fracture of her right hip. Remote history of rectal carcinoma, status post radiation and chemotherapy and peripheral neuropathy from it, osteopenia, hypertension, irritable bowel syndrome, polio as a child, hyperlipidemia. FAMILY HISTORY: Mother dying with pancreatic carcinoma. Father also from pancreatic carcinoma and also had heart disease. Maternal grandfather and paternal grandfather both with heart disease. SOCIAL HISTORY: She is a former smoker, smoked for more than 10 years. She lives with her and also they take care of grandson who had cerebral palsy. The patient had a cane to walk on an as needed basis. ALLERGIES: She is known allergic to LATEX AND CODEINE. The patient admits constipation for about 2 days. She admits urinary frequency. Denies any dysuria. PHYSICAL EXAMINATION: Today revealed an elderly, thin built female. She is alert, oriented to time, place, person and circumstance and follows commands appropriately, moves all 4 extremities voluntarily where she had 4+/5 grade muscle strength with relatively increased weakness in left shoulder abductors and external rotators where she had only 2/5 grade muscle strength. Deep tendon reflexes are decreased overall with absent knee and ankle jerks and she had equal perception of touch and pinprick sensation bilaterally. The patient requires help with bed mobility and transfers. I have not seen her ambulation skills at present time, but as per physical therapy notes dated 08/23/2018, the patient requiring contact guard assistance for supine to sit with cues for sequencing for bed mobility, minimal assistance with transfers, sit to stand transfers. She walked for about 3 feet using a roller walker with contact guard assistance, limited activity due to tachycardia. The patient is receiving parenteral nutrition. ASSESSMENT: 1. Mobility and self-care limitation in a patient with deconditioned state from recent hospitalization for functional small-bowel obstruction relieved. 2. Severe protein malnutrition. 3. Carcinoma of colon in the past with chemotherapy and radiation therapy with peripheral neuropathy, left rotator cuff, partial lesion. The patient with known pathological fracture of right hip in the past, osteopenia, hypertension, irritable bowel syndrome, hyperlipidemia, polio as a child without any residual deficits, chronic pulmonary abscess, history of supraventricular tachycardia and atrial fibrillation, skin breakdown over coccyx area. RECOMMENDATIONS: Agree with the plan for physical therapy and occupational therapy and to transfer her to custodial care unit when she is medically stable. Dr. Win, appreciate asking me to participate in the care of this interesting patient. I will be glad to follow her with you as needed for rehabilitation. DENNIS WHALEY MD DR: DANIA/curtis JOB#: [id number] / [id number]
--- NOTE | 2018-08-24 10:20 | NUR ---
Wound Care Pt seen for wound care follow up re: a coccyx pressure ulcer. Upon assessment, pt had liquid stool in brief and on wound, BRIANNA Adame had stated they removed the foam dressings d/t frequent stools soiling dressing. Pt cleaned and placed on bedpan briefly. Wound appears improved, with new skin covering much of the wound, periwound bright red from frequent incontinent episodes, pt would benefit from Vitamin A&D ointment as a barrier protectant. Wendi to ask PCP for order. Bilateral hips with foam padding for protection, as pt has prominent bony areas, pink and blanchable. No other wounds noted on full skin inspection. Transportation at bedside to take pt for test.
[2018-08-24] MEDS: CHOLECALCIFEROL (VITAMIN D3) 1,000 UNIT TABLET PO SCH (10:32)
[2018-08-24] MEDS: METOPROLOL TART IMMED RELEASE 25 MG TABLET. PO SCH ×2 (10:32→21:15)
[2018-08-24 11:00] VITALS: BP 127/68
--- NOTE | 2018-08-24 11:29 | RAD ---
EXAM: CT ABDOMEN/PELVIS WITH CONTRAST. HISTORY: Recurrent small bowel obstruction, pelvic pain. TECHNIQUE: Computed tomography of the abdomen and pelvis was performed after the intravenous administration of 75 mL Omnipaque 300 using an enterography protocol. COMPARISON: 08/17/2018. FINDINGS: Lung windows through the visualized portions of the bases reveal small bilateral pleural effusions. There is mild dependent atelectasis. A calcified granuloma is noted in the left lower lobe. There is a small hiatal hernia.. Bone windows reveal no suspicious lesions. There is diffuse body wall edema and cachexia. There is also edema throughout the intra-abdominal fat, limiting soft tissue differentiation. There is diffuse moderate distention of the small bowel without a clear transition point. There are angulated loops in the right lower quadrant suggesting adhesions versus regional decompression. Loops distal to this point appear to be dilated as well. There is mild wall thickening along the duodenum without a gross ulcer by CT. Anastomotic suture lines are noted along a small bowel loop in the right lower quadrant, and along the distal rectum. The proximal colon is decompressed. Stool throughout the left colon suggests a component of constipation. There are no pathologically enlarged lymph nodes. There are calcified granulomas in the spleen. The gallbladder is surgically absent. The liver, pancreas, adrenal glands and kidneys are unremarkable. The uterus is surgically absent. IMPRESSION: 1. Diffuse moderate distention of the small bowel without a clear transition point. There are angulated loops in the right lower quadrant suggesting adhesions, but loops distal to this point also appear distended. Correlate clinically to differentiate ileus or enteritis from small bowel obstruction. 2. Wall thickening of the duodenum may be an incidental appearance or reflect inflammation. 3. Diffuse anasarca. Small bilateral pleural effusions. Correlate with other clinical data. *One or more of the following individualized dose reduction techniques were utilized for this examination: 1. Automated exposure control. 2. Adjustment of the mA and/or kV according to patient size. 3. Use of iterative reconstruction technique. Electronically signed by: Teressa Vasquez MD (08/24/2018 11:26 AM) [facility]
--- NOTE | 2018-08-24 12:25 | PDOC ---
PROGRESS NOTES Subjective Subjective No new complaints. Objective Objective Vital Signs Date Time Temp Pulse Resp B/P (MAP) Pulse Ox O2 Delivery O2 Flow Rate FiO2 08/24/18 11:00 89 18 127/68 (87) Room Air 08/24/18 07:19 97.3 97 97.3 Intake and Output 08/24/18 07:00 Intake Total 1096 ml Output Total 1850 ml Balance -754 ml Intake Oral 1046 ml IV Total 50 ml Output Urine Total 1850 ml Physical Exam Physical Exam She is supine in bed but she if getting up by herself and physical endurance is low and poor oral intake. Assessment Assessment Problems Medical Problems: (1) Pneumoperitoneum Status: Acute Plan Plan of Care To continue present physical and occupational therapy follow up and to SNF or rehab unit when medically stable. Comment Review of Relevant I have reviewed the following items jackie (where applicable) has been applied. Labs Laboratory Tests Test 08/22/18 18:39 08/22/18 23:37 08/23/18 05:15 08/23/18 06:20 Glucose (Fingerstick) 130 mg/dL (70-99) 133 mg/dL (70-99) 112 mg/dL (70-99) Sodium Level 137 mmol/L (136-145) Potassium Level 4.4 mmol/L (3.5-5.1) Chloride Level 103 mmol/L (98-107) Carbon Dioxide Level 28 mmol/L (21-32) Anion Gap 6 (6-14) Blood Urea Nitrogen 14 mg/dL (7-20) Creatinine 0.3 mg/dL (0.6-1.0) Estimated GFR (Cockcroft-Gault) 218.7 BUN/Creatinine Ratio 47 (6-20) Glucose Level 98 mg/dL (70-99) Calcium Level 8.2 mg/dL (8.5-10.1) Phosphorus Level 3.0 mg/dL (2.6-4.7) Magnesium Level 2.0 mg/dL (1.8-2.4) Total Bilirubin 0.3 mg/dL (0.2-1.0) Aspartate Amino Transf (AST/SGOT) 90 U/L (15-37) Alanine Aminotransferase (ALT/SGPT) 115 U/L (14-59) Alkaline Phosphatase 212 U/L (46-116) Total Protein 5.1 g/dL (6.4-8.2) Albumin 1.7 g/dL (3.4-5.0) Albumin/Globulin Ratio 0.5 (1.0-1.7) Triglycerides Level 128 mg/dL (0-150) Test 08/23/18 11:45 08/23/18 17:16 08/24/18 00:31 08/24/18 05:50 Glucose (Fingerstick) 106 mg/dL (70-99) 119 mg/dL (70-99) 130 mg/dL (70-99) Sodium Level 136 mmol/L (136-145) Potassium Level 3.9 mmol/L (3.5-5.1) Chloride Level 103 mmol/L (98-107) Carbon Dioxide Level 26 mmol/L (21-32) Anion Gap 7 (6-14) Blood Urea Nitrogen 16 mg/dL (7-20) Creatinine 0.3 mg/dL (0.6-1.0) Estimated GFR (Cockcroft-Gault) 218.7 Glucose Level 103 mg/dL (70-99) Calcium Level 7.8 mg/dL (8.5-10.1) Phosphorus Level 2.8 mg/dL (2.6-4.7) Magnesium Level 1.8 mg/dL (1.8-2.4) Total Bilirubin 0.2 mg/dL (0.2-1.0) Direct Bilirubin 0.1 mg/dL (0.0-0.2) Aspartate Amino Transf (AST/SGOT) 58 U/L (15-37) Alanine Aminotransferase (ALT/SGPT) 93 U/L (14-59) Alkaline Phosphatase 193 U/L (46-116) Total Protein 4.5 g/dL (6.4-8.2) Albumin 1.6 g/dL (3.4-5.0) Test 08/24/18 06:48 Glucose (Fingerstick) 94 mg/dL (70-99) Laboratory Tests Test 08/23/18 17:16 08/24/18 00:31 08/24/18 05:50 08/24/18 06:48 Glucose (Fingerstick) 119 mg/dL (70-99) 130 mg/dL (70-99) 94 mg/dL (70-99) Sodium Level 136 mmol/L (136-145) Potassium Level 3.9 mmol/L (3.5-5.1) Chloride Level 103 mmol/L (98-107) Carbon Dioxide Level 26 mmol/L (21-32) Anion Gap 7 (6-14) Blood Urea Nitrogen 16 mg/dL (7-20) Creatinine 0.3 mg/dL (0.6-1.0) Estimated GFR (Cockcroft-Gault) 218.7 Glucose Level 103 mg/dL (70-99) Calcium Level 7.8 mg/dL (8.5-10.1) Phosphorus Level 2.8 mg/dL (2.6-4.7) Magnesium Level 1.8 mg/dL (1.8-2.4) Total Bilirubin 0.2 mg/dL (0.2-1.0) Direct Bilirubin 0.1 mg/dL (0.0-0.2) Aspartate Amino Transf (AST/SGOT) 58 U/L (15-37) Alanine Aminotransferase (ALT/SGPT) 93 U/L (14-59) Alkaline Phosphatase 193 U/L (46-116) Total Protein 4.5 g/dL (6.4-8.2) Albumin 1.6 g/dL (3.4-5.0) Microbiology 08/18/18 Blood Culture - Final, Complete NO GROWTH AFTER 5 DAYS Medications Current Medications Sodium Chloride 1,000 ml @ 100 mls/hr Q10H IV Last administered on 08/17/18at 06:55; Start 08/17/18 at 06:30; Stop 08/17/18 at 16:29; Status DC Ondansetron HCl (Zofran) 4 mg 1X ONCE IV Last administered on 08/17/18at 06:55; Start 08/17/18 at 06:30; Stop 08/17/18 at 06:31; Status DC Iohexol (Omnipaque 240 Mg/ml) 30 ml 1X ONCE PO Last administered on 08/17/18at 07:15; Start 08/17/18 at 07:15; Stop 08/17/18 at 07:16; Status DC Iohexol (Omnipaque 300 Mg/ml) 75 ml 1X ONCE IV Last administered on 08/17/18at 08:11; Start 08/17/18 at 07:15; Stop 08/17/18 at 07:16; Status DC Info (CONTRAST GIVEN -- Rx MONITORING) 1 each PRN DAILY PRN MC SEE COMMENTS; Start 08/17/18 at 07:15; Stop 08/19/18 at 07:14; Status DC Sodium Chloride 1,000 ml @ 1,000 mls/hr 1X ONCE IV Last administered on 08/17/18at 07:45; Start 08/17/18 at 07:45; Stop 08/17/18 at 08:44; Status DC Magnesium Sulfate/ Dextrose 100 ml @ 100 mls/hr 1X ONCE IV Last administered on 08/17/18at 14:55; Start 08/17/18 at 07:45; Stop 08/17/18 at 08:44; Status DC Potassium Chloride/Water 100 ml @ 100 mls/hr Q1H IV Last administered on 08/17/18at 09:23; Start 08/17/18 at 07:45; Stop 08/17/18 at 09:44; Status DC Ertapenem 50 ml @ 100 mls/hr 1X ONCE IV ; Start 08/17/18 at 09:15; Stop 08/17/18 at 09:44; Status UNV Meropenem 500 mg/ Sodium Chloride 50 ml @ 100 mls/hr 1X ONCE IV Last administered on 08/17/18at 10:53; Start 08/17/18 at 09:30; Stop 08/17/18 at 09:59; Status DC Ondansetron HCl (Zofran) 4 mg PRN Q8HRS PRN IV NAUSEA/VOMITING; Start 08/17/18 at 10:00; Stop 08/18/18 at 09:59; Status DC Morphine Sulfate (Morphine Sulfate) 4 mg PRN Q2HR PRN IV PAIN; Start 08/17/18 at 10:00; Stop 08/18/18 at 09:59; Status DC Meropenem 500 mg/ Sodium Chloride 50 ml @ 100 mls/hr Q8HRS IV Last administered on 08/24/18at 05:27; Start 08/17/18 at 14:00 Amino Acids/ Glycerin/ Electrolytes 1,000 ml @ 80 mls/hr [id number] IV Last administered on 08/17/18at 20:57; Start 08/17/18 at 20:15; Stop 08/19/18 at 10:57; Status DC Potassium Chloride/Sodium Chloride 1,000 ml @ 75 mls/hr 1X ONCE IV Last administered on 08/18/18at 11:26; Start 08/18/18 at 07:45; Stop 08/18/18 at 21:04; Status DC Magnesium Sulfate 50 ml @ 25 mls/hr 1X ONCE IV Last administered on 08/18/18at 13:50; Start 08/18/18 at 09:00; Stop 08/18/18 at 10:59; Status DC Famotidine (Pepcid Vial) 20 mg QHS IVP Last administered on 08/22/18at 21:27; Start 08/18/18 at 21:00; Stop 08/23/18 at 09:15; Status DC Info (Tpn Per Pharmacy) 1 each PRN DAILY PRN MC SEE COMMENTS Last administered on 08/23/18at 13:16; Start 08/18/18 at 13:15 Sodium Chloride 90 meq/Potassium Chloride 50 meq/ Potassium Phosphate 13.6 mmol/Magnesium Sulfate 10 meq/ Calcium Gluconate 10 meq/ Multivitamins 10 ml/Chromium/ Copper/Manganese/ Seleni/Zn 1 ml/ Total Parenteral Nutrition/Amino Acids/Dextrose/ Fat Emulsion Intravenous 1,512 ml @ 63 mls/hr TPN CONT IV Last administered on 08/19/18at 03:19; Start 08/18/18 at 22:00; Stop 08/19/18 at 21:59; Status DC Potassium Phosphate 10 mmol/ Dextrose 103.3333 ml @ 51.667 m... Q2H IV Last administered on 08/19/18at 12:06; Start 08/19/18 at 12:00; Stop 08/19/18 at 15:59; Status DC Calcium Gluconate 1000 mg/Dextrose 110 ml @ 220 mls/hr 1X ONCE IV Last administered on 08/19/18at 15:26; Start 08/19/18 at 15:00; Stop 08/19/18 at 15:29; Status DC Furosemide (Lasix) 20 mg 1X ONCE IVP Last administered on 08/19/18at 13:45; Start 08/19/18 at 13:15; Stop 08/19/18 at 13:16; Status DC Sodium Chloride 90 meq/Potassium Chloride 60 meq/ Potassium Phosphate 17 mmol/ Magnesium Sulfate 10 meq/Calcium Gluconate 15 meq/ Multivitamins 10 ml/Chromium/ Copper/Manganese/ Seleni/Zn 1 ml/ Total Parenteral Nutrition/Amino Acids/Dextrose/ Fat Emulsion Intravenous 1,512 ml @ 63 mls/hr TPN CONT IV Last administered on 08/19/18at 21:46; Start 08/19/18 at 22:00; Stop 08/20/18 at 21:59; Status DC Dextrose (Dextrose 50%-Water Syringe) 12.5 gm PRN Q15MIN PRN IV SEE COMMENTS; Start 08/20/18 at 06:30 Adenosine (Adenocard) 6 mg 1X ONCE IV Last administered on 08/20/18at 07:45; Start 08/20/18 at 10:00; Stop 08/20/18 at 10:08; Status DC Sodium Phosphate 30 mmol/Dextrose 260 ml @ 65 mls/hr 1X ONCE IV Last administered on 08/20/18at 13:04; Start 08/20/18 at 13:00; Stop 08/20/18 at 16:59; Status DC Sodium Chloride 90 meq/Potassium Chloride 60 meq/ Potassium Phosphate 25 mmol/ Magnesium Sulfate 10 meq/Calcium Gluconate 10 meq/ Multivitamins 10 ml/Chromium/ Copper/Manganese/ Seleni/Zn 1 ml/ Total Parenteral Nutrition/Amino Acids/Dextrose/ Fat Emulsion Intravenous 1,512 ml @ 63 mls/hr TPN CONT IV Last administered on 08/20/18at 20:32; Start 08/20/18 at 22:00; Stop 08/21/18 at 21:59; Status DC Bisacodyl (Dulcolax Supp) 10 mg 1X ONCE IA Last administered on 08/21/18at 11:14; Start 08/21/18 at 09:45; Stop 08/21/18 at 09:46; Status DC Potassium Phosphate 15 mmol/ Sodium Chloride 255 ml @ 127.5 mls/ hr 1X ONCE IV Last administered on 08/21/18at 16:48; Start 08/21/18 at 15:00; Stop 08/21/18 at 16:59; Status DC Sodium Chloride 90 meq/Potassium Chloride 60 meq/ Potassium Phosphate 25 mmol/ Magnesium Sulfate 13 meq/Calcium Gluconate 10 meq/ Multivitamins 10 ml/Chromium/ Copper/Manganese/ Seleni/Zn 1 ml/ Total Parenteral Nutrition/Amino Acids/Dextrose/ Fat Emulsion Intravenous 1,512 ml @ 63 mls/hr TPN CONT IV Last administered on 08/21/18at 22:03; Start 08/21/18 at 22:00; Stop 08/22/18 at 21:59; Status DC Metoprolol Tartrate (Lopressor Vial) 5 mg PRN Q6HRS PRN IVP TACHYCARDIA Last administered on 08/22/18at 17:23; Start 08/22/18 at 10:00 Sodium Phosphate 30 mmol/Dextrose 260 ml @ 65 mls/hr 1X ONCE IV Last administered on 08/22/18 14:13; Start 08/22/18 at 11:00; Stop 08/22/18 at 14:59; Status DC Magnesium Sulfate 50 ml @ 25 mls/hr 1X ONCE IV Last administered on 08/22/18at 10:52; Start 08/22/18 at 11:00; Stop 08/22/18 at 12:59; Status DC Sodium Chloride 90 meq/Sodium Phosphate 15 mmol/ Potassium Chloride 35 meq/ Potassium Phosphate 25 mmol/ Magnesium Sulfate 18 meq/ Multivitamins 10 ml/Chromium/ Copper/Manganese/ Seleni/Zn 1 ml/ Total Parenteral Nutrition/Amino Acids/Dextrose/ Fat Emulsion Intravenous 1,512 ml @ 63 mls/hr TPN CONT IV Last administered on 08/22/18at 21:28; Start 08/22/18 at 22:00; Stop 08/23/18 at 21:59; Status DC Famotidine (Pepcid) 20 mg QHS PO Last administered on 08/23/18at 21:59; Start 08/23/18 at 21:00 Sodium Chloride 90 meq/Sodium Phosphate 15 mmol/ Potassium Chloride 35 meq/ Potassium Phosphate 25 mmol/ Magnesium Sulfate 18 meq/ Multivitamins 10 ml/Chromium/ Copper/Manganese/ Seleni/Zn 1 ml/ Total Parenteral Nutrition/Amino Acids/Dextrose/ Fat Emulsion Intravenous 1,512 ml @ 63 mls/hr TPN CONT IV Last administered on 08/23/18at 21:59; Start 08/23/18 at 22:00; Stop 08/24/18 at 21:59 Vitamin D (Vitamin D3) 1,000 unit DAILY PO Last administered on 08/24/18at 10:32; Start 08/23/18 at 16:00 Non-Formulary Medication (Multivitamin (Multivitamins)) 1 each DAILY PO ; Start 08/24/18 at 09:00; Status UNV Metoprolol Tartrate (Lopressor) 12.5 mg BID PO Last administered on 08/24/18at 10:32; Start 08/23/18 at 15:30 Sodium Chloride 500 ml @ 500 mls/hr 1X ONCE IV Last administered on 08/23/18at 16:12; Start 08/23/18 at 15:30; Stop 08/23/18 at 16:29; Status DC Iohexol (Omnipaque 300 Mg/ml) 75 ml 1X ONCE IV Last administered on 08/24/18at 10:15; Start 08/24/18 at 08:15; Stop 08/24/18 at 08:18; Status DC Info (CONTRAST GIVEN -- Rx MONITORING) 1 each PRN DAILY PRN MC SEE COMMENTS; Start 08/24/18 at 08:30; Stop 08/26/18 at 08:29 Active Scripts Active Avelox (Moxifloxacin Hcl) 400 Mg Tablet 1 Tab PO DAILY Diphenoxylate-Atropine Tablet (Diphenoxylate Hcl/Atropine) 1 Each Tablet 1 Tab PO PRN QID PRN 30 Days Famotidine 20 Mg Tablet 20 Mg PO QHS 60 Days Aspirin Ec (Aspirin) 81 Mg Tablet.dr 81 Mg PO DAILYWBKFT 30 Days Toprol Xl (Metoprolol Succinate) 50 Mg Tab.er.24h 50 Mg PO HS 30 Days Hydrocodone-Apap 5-325 (Hydrocodone Bit/Acetaminophen) 1 Tab Tablet 1 Tab PO PRN Q4HRS PRN Reported Multivitamins (Multivitamin) 1 Each Tablet 1 Each PO DAILY Vitamin D3 (Cholecalciferol (Vitamin D3)) 1,000 Unit Tablet 1,000 Unit PO DAILY Vitals/I & O Vital Sign - Last 24 Hours 08/23/18 08/23/18 08/23/18 08/23/18 14:51 16:21 19:45 20:21 Temp 97.7 98.2 97.7 98.2 Pulse 115 102 101 Resp 16 16 B/P (MAP) 96/61 (73) 119/67 108/54 (72) Pulse Ox 98 98 O2 Delivery Room Air Room Air Room Air 08/23/18 08/23/18 08/24/18 08/24/18 22:00 22:01 02:08 07:19 Temp 97.8 97.8 97.3 97.8 97.8 97.3 Pulse 95 103 94 91 Resp 18 14 14 B/P (MAP) 134/75 (94) 104/75 106/58 (74) 133/72 (92) Pulse Ox 99 97 97 O2 Delivery Room Air Room Air Room Air 08/24/18 08/24/18 08/24/18 08:05 10:32 11:00 Pulse 85 89 Resp 18 B/P (MAP) 127/68 (87) O2 Delivery Room Air Room Air Intake and Output 08/23/18 08/23/18 08/24/18 15:00 23:00 07:00 Intake Total 946 ml 150 ml Output Total 300 ml 650 ml 900 ml Balance 646 ml -500 ml -900 ml Nutrition Consultation Dietary Evaluation: Recommendations by RD: Increase Calorie Intake, Protein supplementation, PPN/TPN Comments: Continue w/TPN per current order for nutrition needs REC Vit C, MVI for wound healing as able Advance diet as able to regular, note multiple food intolerances Expected Outcomes/Goals: to meet > 75% est nutr needs via TPN - met, goal ongoing Interpretation of weight loss: >10% in 6 months Malnutrition Findings: Muscle Mass (Severe): Severe Depletion Weight Status: Underweight DENNIS WHALEY MD Aug 24, 2018 12:25
--- NOTE | 2018-08-24 12:43 | NUR ---
SS following up with discharge planning. SS received e-mail from pt's daughter requesting referrals be sent to [facility], ; fax [phone], and [facility], ; fax [phone]. SS phoned and faxed referrals. SS will await acceptance decision and will proceed accordingly. Pt's RN notified.
--- NOTE | 2018-08-24 13:14 | PDOC ---
SURGICAL PROGRESS NOTE Subjective tolerating clears some flatus, small liquid stool no emesis Vital Signs Vital Signs Date Time Temp Pulse Resp B/P (MAP) Pulse Ox O2 Delivery O2 Flow Rate FiO2 08/24/18 11:00 89 18 127/68 (87) Room Air 08/24/18 07:19 97.3 97 97.3 I&O Intake and Output 08/24/18 07:00 Intake Total 1096 ml Output Total 1850 ml Balance -754 ml Intake Oral 1046 ml IV Total 50 ml Output Urine Total 1850 ml General: Alert, Oriented X3, Cooperative, No acute distress Abdomen: Soft, No tenderness Labs Laboratory Tests Test 08/22/18 18:39 08/22/18 23:37 08/23/18 05:15 08/23/18 06:20 Glucose (Fingerstick) 130 mg/dL (70-99) 133 mg/dL (70-99) 112 mg/dL (70-99) Sodium Level 137 mmol/L (136-145) Potassium Level 4.4 mmol/L (3.5-5.1) Chloride Level 103 mmol/L (98-107) Carbon Dioxide Level 28 mmol/L (21-32) Anion Gap 6 (6-14) Blood Urea Nitrogen 14 mg/dL (7-20) Creatinine 0.3 mg/dL (0.6-1.0) Estimated GFR (Cockcroft-Gault) 218.7 BUN/Creatinine Ratio 47 (6-20) Glucose Level 98 mg/dL (70-99) Calcium Level 8.2 mg/dL (8.5-10.1) Phosphorus Level 3.0 mg/dL (2.6-4.7) Magnesium Level 2.0 mg/dL (1.8-2.4) Total Bilirubin 0.3 mg/dL (0.2-1.0) Aspartate Amino Transf (AST/SGOT) 90 U/L (15-37) Alanine Aminotransferase (ALT/SGPT) 115 U/L (14-59) Alkaline Phosphatase 212 U/L (46-116) Total Protein 5.1 g/dL (6.4-8.2) Albumin 1.7 g/dL (3.4-5.0) Albumin/Globulin Ratio 0.5 (1.0-1.7) Triglycerides Level 128 mg/dL (0-150) Test 08/23/18 11:45 08/23/18 17:16 08/24/18 00:31 08/24/18 05:50 Glucose (Fingerstick) 106 mg/dL (70-99) 119 mg/dL (70-99) 130 mg/dL (70-99) Sodium Level 136 mmol/L (136-145) Potassium Level 3.9 mmol/L (3.5-5.1) Chloride Level 103 mmol/L (98-107) Carbon Dioxide Level 26 mmol/L (21-32) Anion Gap 7 (6-14) Blood Urea Nitrogen 16 mg/dL (7-20) Creatinine 0.3 mg/dL (0.6-1.0) Estimated GFR (Cockcroft-Gault) 218.7 Glucose Level 103 mg/dL (70-99) Calcium Level 7.8 mg/dL (8.5-10.1) Phosphorus Level 2.8 mg/dL (2.6-4.7) Magnesium Level 1.8 mg/dL (1.8-2.4) Total Bilirubin 0.2 mg/dL (0.2-1.0) Direct Bilirubin 0.1 mg/dL (0.0-0.2) Aspartate Amino Transf (AST/SGOT) 58 U/L (15-37) Alanine Aminotransferase (ALT/SGPT) 93 U/L (14-59) Alkaline Phosphatase 193 U/L (46-116) Total Protein 4.5 g/dL (6.4-8.2) Albumin 1.6 g/dL (3.4-5.0) Test 08/24/18 06:48 08/24/18 12:31 Glucose (Fingerstick) 94 mg/dL (70-99) 91 mg/dL (70-99) Laboratory Tests Test 08/23/18 17:16 08/24/18 00:31 08/24/18 05:50 08/24/18 06:48 Glucose (Fingerstick) 119 mg/dL (70-99) 130 mg/dL (70-99) 94 mg/dL (70-99) Sodium Level 136 mmol/L (136-145) Potassium Level 3.9 mmol/L (3.5-5.1) Chloride Level 103 mmol/L (98-107) Carbon Dioxide Level 26 mmol/L (21-32) Anion Gap 7 (6-14) Blood Urea Nitrogen 16 mg/dL (7-20) Creatinine 0.3 mg/dL (0.6-1.0) Estimated GFR (Cockcroft-Gault) 218.7 Glucose Level 103 mg/dL (70-99) Calcium Level 7.8 mg/dL (8.5-10.1) Phosphorus Level 2.8 mg/dL (2.6-4.7) Magnesium Level 1.8 mg/dL (1.8-2.4) Total Bilirubin 0.2 mg/dL (0.2-1.0) Direct Bilirubin 0.1 mg/dL (0.0-0.2) Aspartate Amino Transf (AST/SGOT) 58 U/L (15-37) Alanine Aminotransferase (ALT/SGPT) 93 U/L (14-59) Alkaline Phosphatase 193 U/L (46-116) Total Protein 4.5 g/dL (6.4-8.2) Albumin 1.6 g/dL (3.4-5.0) Test 08/24/18 12:31 Glucose (Fingerstick) 91 mg/dL (70-99) Problem List Problems Medical Problems: (1) Pneumoperitoneum Status: Acute Assessment/Plan ileus tolerating liquids, will advance can try full liquids dc planning AMARILIS ABDI APRN Aug 24, 2018 13:14
[2018-08-24] MEDS ORDERED: METO25TA4 PO (13:27)
[2018-08-24] MEDS ORDERED: Tpn Per Pharmacy MC (13:27)
[2018-08-24] MEDS: TPN PER PHARMACY MC PRN (13:42)
--- NOTE | 2018-08-24 13:43 | NUR ---
Pharmacy TPN Dosing Note S: CHELSIE PINEDA is a 73 year old F Currently receiving Central Continuous TPN started 08/18/18 B:Pertinent PMH: SBO Height: 5 feet, 3 inches Weight: 42.3 kg Current diet: Full liquid LABS: Sodium: 136 Potassium: 3.9 Chloride: 103 Calcium: 7.8 Corrected Calcium: 9.72 Magnesium: 1.8 CO2: 26 SCr: 0.3 Glucose: 91-130 Albumin: 1.6 AST: 58 ALT: 93 TPN FORMULA: TPN TYPE: Central Continuous AMINO ACIDS: 60 gm DEXTROSE: 195 gm LIPIDS: 20 gm SODIUM CHLORIDE: 90 mEq SODIUM PHOSPHATE: 15 mmol POTASSIUM CHLORIDE: 35 mEq POTASSIUM PHOSPHATE: 25 mmol MAGNESIUM: 18 mEq MULTIPLE VITAMIN: 10 ml TRACE ELEMENTS: 1 ml(s) TPN PLAN: Continue same formula today. R: Continue TPN Will monitor electrolytes, glucose, and tolerance to TPN. Rebecca Orellana RPH, 08/24/18 [id number]
[2018-08-24] MEDS: VITS A & D/LANOLIN TOPICAL OINTMENT 56GM TUBE. TP SCH ×2 (14:19→21:24)
[2018-08-24 15:00] VITALS: BP 106/64
--- NOTE | 2018-08-24 15:39 | RAD ---
CT CHEST WO CONTRAST Indication: Lung abscess. Exposure: One or more of the following individualized dose reduction techniques were utilized for this examination: 1. Automated exposure control 2. Adjustment of the mA and/or kV according to patient size 3. Use of iterative reconstruction technique. Technique: Standard imaging without intravenous contrast. Comparison: August 17, 2018. FINDINGS: Extreme paucity of fat is again seen. Aorta calcified without gross aneurysm. No definite pathologic lymph node enlargement is seen. No pericardial effusion. There are small bilateral pleural effusions. Scans through the upper abdomen are limited by technique, again demonstrate multiple distended loops of fluid-filled small bowel. Cavitary lesion in the right lower lobe is again identified. The gas component has increased relative to the fluid component since the previous study. Increase in size of the separates the lesion in the superior segment of the right lower lobe. This lesion has now also developed a small cavitary component which measures 8 mm. Mild right upper lobe infiltrates have slightly improved. There has been an increase in multiple nodular and linear opacities in the right lower lobe and right upper lobe. There are also couple of new tiny cavitary nodules in the right upper lobe. Small cavitary nodule in the left upper lobe has mildly increased in size with mild wall thickening. There are several new subcentimeter cavitary nodules in the left lower lobe which have developed since the prior study. The trachea and mainstem bronchi are patent. No aggressive bone destruction IMPRESSION: 1. The previously seen right lower lobe cavitary lesion is again identified, with an increased gas and diminished fluid component since prior study. 2. Increased cavitation in the separate lesion in the superior segment of the right lower lobe. 3. Multiple new small cavitary nodules are now identified in both lungs. This does raise the question of septic emboli, versus scattered infectious foci or metastases. Electronically signed by: Manish Velazco MD (08/24/2018 3:37 PM) [id number]
--- NOTE | 2018-08-24 16:18 | NUR ---
SS following up with discharge planning. Pt was declined by [facility] and [facility] due to not being able to accommodate 4-6 weeks of TPN and 2 weeks of IV antibiotics. SS contacted [facility] and discusses. [facility] concerned about using all of pt's alf days up for TPN and IV antibiotics. Recommendation was given by facilities to refer to LTAC for TPN and IV antibiotics and then transition from LTAC to alf unit for continued rehabilitation. SS contacted pt's daughter and discussed. Pt's daughter understanding and agreeable. SS phoned and faxed referral to [facility], ; fax [phone]. SS will await acceptance decision and will proceed accordingly. SS left voice message for Dr. Win.
--- NOTE | 2018-08-24 17:23 | PDOC ---
PROGRESS NOTES Subjective Subjective Improving but still not meeting by mouth diet needs. Long-term TPN planned. Patient also needs IV antibiotics due to pulmonary abscesses. Discussed with infectious disease and minimum of 2 weeks IV antibiotics recommended. Plan to discharge patient to custodial versus LTAC pending facility approvals Objective Objective Vital Signs Date Time Temp Pulse Resp B/P (MAP) Pulse Ox O2 Delivery O2 Flow Rate FiO2 08/24/18 15:00 97.4 103 18 106/64 (78) 97 Room Air 97.4 Intake and Output 08/24/18 07:00 Intake Total 1096 ml Output Total 1850 ml Balance -754 ml Intake Oral 1046 ml IV Total 50 ml Output Urine Total 1850 ml Physical Exam Abdomen: Other (bowel sounds present) Heart: Regular rate Extremities: No clubbing General: Alert Lungs: Clear to auscultation Assessment Assessment Problems Medical Problems: (1) Pneumoperitoneum Status: Acute 1. Functional Small-bowel obstruction 2. Severe protein malnutrition. 3. Leukopenia. 4. Hyponatremia- resolved 5. Hypomagnesemia. 6. Hypokalemia- replacing 7. 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 Pt on Meropenem currently 8. SVT Plan Plan of Care Continue TPN planned for 4-6 weeks of treatment. Increase activity [facility]. Continue IV antibiotics. Increase activity with PT and OT. Comment Review of Relevant I have reviewed the following items jackie (where applicable) has been applied. Labs Laboratory Tests Test 08/22/18 18:39 08/22/18 23:37 08/23/18 05:15 08/23/18 06:20 Glucose (Fingerstick) 130 mg/dL (70-99) 133 mg/dL (70-99) 112 mg/dL (70-99) Sodium Level 137 mmol/L (136-145) Potassium Level 4.4 mmol/L (3.5-5.1) Chloride Level 103 mmol/L (98-107) Carbon Dioxide Level 28 mmol/L (21-32) Anion Gap 6 (6-14) Blood Urea Nitrogen 14 mg/dL (7-20) Creatinine 0.3 mg/dL (0.6-1.0) Estimated GFR (Cockcroft-Gault) 218.7 BUN/Creatinine Ratio 47 (6-20) Glucose Level 98 mg/dL (70-99) Calcium Level 8.2 mg/dL (8.5-10.1) Phosphorus Level 3.0 mg/dL (2.6-4.7) Magnesium Level 2.0 mg/dL (1.8-2.4) Total Bilirubin 0.3 mg/dL (0.2-1.0) Aspartate Amino Transf (AST/SGOT) 90 U/L (15-37) Alanine Aminotransferase (ALT/SGPT) 115 U/L (14-59) Alkaline Phosphatase 212 U/L (46-116) Total Protein 5.1 g/dL (6.4-8.2) Albumin 1.7 g/dL (3.4-5.0) Albumin/Globulin Ratio 0.5 (1.0-1.7) Triglycerides Level 128 mg/dL (0-150) Test 08/23/18 11:45 08/23/18 17:16 08/24/18 00:31 08/24/18 05:50 Glucose (Fingerstick) 106 mg/dL (70-99) 119 mg/dL (70-99) 130 mg/dL (70-99) Sodium Level 136 mmol/L (136-145) Potassium Level 3.9 mmol/L (3.5-5.1) Chloride Level 103 mmol/L (98-107) Carbon Dioxide Level 26 mmol/L (21-32) Anion Gap 7 (6-14) Blood Urea Nitrogen 16 mg/dL (7-20) Creatinine 0.3 mg/dL (0.6-1.0) Estimated GFR (Cockcroft-Gault) 218.7 Glucose Level 103 mg/dL (70-99) Calcium Level 7.8 mg/dL (8.5-10.1) Phosphorus Level 2.8 mg/dL (2.6-4.7) Magnesium Level 1.8 mg/dL (1.8-2.4) Total Bilirubin 0.2 mg/dL (0.2-1.0) Direct Bilirubin 0.1 mg/dL (0.0-0.2) Aspartate Amino Transf (AST/SGOT) 58 U/L (15-37) Alanine Aminotransferase (ALT/SGPT) 93 U/L (14-59) Alkaline Phosphatase 193 U/L (46-116) Total Protein 4.5 g/dL (6.4-8.2) Albumin 1.6 g/dL (3.4-5.0) Test 08/24/18 06:48 08/24/18 12:31 Glucose (Fingerstick) 94 mg/dL (70-99) 91 mg/dL (70-99) Laboratory Tests Test 08/24/18 00:31 08/24/18 05:50 08/24/18 06:48 08/24/18 12:31 Glucose (Fingerstick) 130 mg/dL (70-99) 94 mg/dL (70-99) 91 mg/dL (70-99) Sodium Level 136 mmol/L (136-145) Potassium Level 3.9 mmol/L (3.5-5.1) Chloride Level 103 mmol/L (98-107) Carbon Dioxide Level 26 mmol/L (21-32) Anion Gap 7 (6-14) Blood Urea Nitrogen 16 mg/dL (7-20) Creatinine 0.3 mg/dL (0.6-1.0) Estimated GFR (Cockcroft-Gault) 218.7 Glucose Level 103 mg/dL (70-99) Calcium Level 7.8 mg/dL (8.5-10.1) Phosphorus Level 2.8 mg/dL (2.6-4.7) Magnesium Level 1.8 mg/dL (1.8-2.4) Total Bilirubin 0.2 mg/dL (0.2-1.0) Direct Bilirubin 0.1 mg/dL (0.0-0.2) Aspartate Amino Transf (AST/SGOT) 58 U/L (15-37) Alanine Aminotransferase (ALT/SGPT) 93 U/L (14-59) Alkaline Phosphatase 193 U/L (46-116) Total Protein 4.5 g/dL (6.4-8.2) Albumin 1.6 g/dL (3.4-5.0) Microbiology 08/18/18 Blood Culture - Final, Complete NO GROWTH AFTER 5 DAYS Medications Current Medications Sodium Chloride 1,000 ml @ 100 mls/hr Q10H IV Last administered on 08/17/18at 06:55; Start 08/17/18 at 06:30; Stop 08/17/18 at 16:29; Status DC Ondansetron HCl (Zofran) 4 mg 1X ONCE IV Last administered on 08/17/18at 06:55; Start 08/17/18 at 06:30; Stop 08/17/18 at 06:31; Status DC Iohexol (Omnipaque 240 Mg/ml) 30 ml 1X ONCE PO Last administered on 08/17/18at 07:15; Start 08/17/18 at 07:15; Stop 08/17/18 at 07:16; Status DC Iohexol (Omnipaque 300 Mg/ml) 75 ml 1X ONCE IV Last administered on 08/17/18at 08:11; Start 08/17/18 at 07:15; Stop 08/17/18 at 07:16; Status DC Info (CONTRAST GIVEN -- Rx MONITORING) 1 each PRN DAILY PRN MC SEE COMMENTS; Start 08/17/18 at 07:15; Stop 08/19/18 at 07:14; Status DC Sodium Chloride 1,000 ml @ 1,000 mls/hr 1X ONCE IV Last administered on 08/17/18at 07:45; Start 08/17/18 at 07:45; Stop 08/17/18 at 08:44; Status DC Magnesium Sulfate/ Dextrose 100 ml @ 100 mls/hr 1X ONCE IV Last administered on 08/17/18at 14:55; Start 08/17/18 at 07:45; Stop 08/17/18 at 08:44; Status DC Potassium Chloride/Water 100 ml @ 100 mls/hr Q1H IV Last administered on 08/17/18at 09:23; Start 08/17/18 at 07:45; Stop 08/17/18 at 09:44; Status DC Ertapenem 50 ml @ 100 mls/hr 1X ONCE IV ; Start 08/17/18 at 09:15; Stop 08/17/18 at 09:44; Status UNV Meropenem 500 mg/ Sodium Chloride 50 ml @ 100 mls/hr 1X ONCE IV Last administered on 08/17/18at 10:53; Start 08/17/18 at 09:30; Stop 08/17/18 at 09:59; Status DC Ondansetron HCl (Zofran) 4 mg PRN Q8HRS PRN IV NAUSEA/VOMITING; Start 08/17/18 at 10:00; Stop 08/18/18 at 09:59; Status DC Morphine Sulfate (Morphine Sulfate) 4 mg PRN Q2HR PRN IV PAIN; Start 08/17/18 at 10:00; Stop 08/18/18 at 09:59; Status DC Meropenem 500 mg/ Sodium Chloride 50 ml @ 100 mls/hr Q8HRS IV Last admin istered on 08/24/18at 14:18; Start 08/17/18 at 14:00 Amino Acids/ Glycerin/ Electrolytes 1,000 ml @ 80 mls/hr [id number] IV Last ad ministered on 08/17/18at 20:57; Start 08/17/18 at 20:15; Stop 08/19/18 at 10:57; Status DC Potassium Chloride/Sodium Chloride 1,000 ml @ 75 mls/hr 1X ONCE IV Last administered on 08/18/18at 11:26; Start 08/18/18 at 07:45; Stop 08/18/18 at 21:04; Status DC Magnesium Sulfate 50 ml @ 25 mls/hr 1X ONCE IV Last administered on 08/18/18at 13:50; Start 08/18/18 at 09:00; Stop 08/18/18 at 10:59; Status DC Famotidine (Pepcid Vial) 20 mg QHS IVP Last administered on 08/22/18at 21:27; Start 08/18/18 at 21:00; Stop 08/23/18 at 09:15; Status DC Info (Tpn Per Pharmacy) 1 each PRN DAILY PRN MC SEE COMMENTS Last administered on 08/24/18at 13:42; Start 08/18/18 at 13:15 Sodium Chloride 90 meq/Potassium Chloride 50 meq/ Potassium Phosphate 13.6 mmol/Magnesium Sulfate 10 meq/ Calcium Gluconate 10 meq/ Multivitamins 10 ml/Chromium/ Copper/Manganese/ Seleni/Zn 1 ml/ Total Parenteral Nutrition/Amino Acids/Dextrose/ Fat Emulsion Intravenous 1,512 ml @ 63 mls/hr TPN CONT IV Last administered on 08/19/18at 03:19; Start 08/18/18 at 22:00; Stop 08/19/18 at 21:59; Status DC Potassium Phosphate 10 mmol/ Dextrose 103.3333 ml @ 51.667 m... Q2H IV Last administered on 08/19/18at 12:06; Start 08/19/18 at 12:00; Stop 08/19/18 at 15:59; Status DC Calcium Gluconate 1000 mg/Dextrose 110 ml @ 220 mls/hr 1X ONCE IV Last administered on 08/19/18at 15:26; Start 08/19/18 at 15:00; Stop 08/19/18 at 15:29; Status DC Furosemide (Lasix) 20 mg 1X ONCE IVP Last administered on 08/19/18at 13:45; Start 08/19/18 at 13:15; Stop 08/19/18 at 13:16; Status DC Sodium Chloride 90 meq/Potassium Chloride 60 meq/ Potassium Phosphate 17 mmol/ Magnesium Sulfate 10 meq/Calcium Gluconate 15 meq/ Multivitamins 10 ml/Chromium/ Copper/Manganese/ Seleni/Zn 1 ml/ Total Parenteral Nutrition/Amino Acids/Dextrose/ Fat Emulsion Intravenous 1,512 ml @ 63 mls/hr TPN CONT IV Last administered on 08/19/18at 21:46; Start 08/19/18 at 22:00; Stop 08/20/18 at 21:59; Status DC Dextrose (Dextrose 50%-Water Syringe) 12.5 gm PRN Q15MIN PRN IV SEE COMMENTS; Start 08/20/18 at 06:30 Adenosine (Adenocard) 6 mg 1X ONCE IV Last administered on 08/20/18at 07:45; Start 08/20/18 at 10:00; Stop 08/20/18 at 10:08; Status DC Sodium Phosphate 30 mmol/Dextrose 260 ml @ 65 mls/hr 1X ONCE IV Last administered on 08/20/18at 13:04; Start 08/20/18 at 13:00; Stop 08/20/18 at 16:59; Status DC Sodium Chloride 90 meq/Potassium Chloride 60 meq/ Potassium Phosphate 25 mmol/ Magnesium Sulfate 10 meq/Calcium Gluconate 10 meq/ Multivitamins 10 ml/Chromium/ Copper/Manganese/ Seleni/Zn 1 ml/ Total Parenteral Nutrition/Amino Aci ds/Dextrose/ Fat Emulsion Intravenous 1,512 ml @ 63 mls/hr TPN CONT IV Last administered on 08/20/18at 20:32; Start 08/20/18 at 22:00; Stop 08/21/18 at 21:59; Status DC Bisacodyl (Dulcolax Supp) 10 mg 1X ONCE AR Last administered on 08/21/18at 11:14; Start 08/21/18 at 09:45; Stop 08/21/18 at 09:46; Status DC Potassium Phosphate 15 mmol/ Sodium Chloride 255 ml @ 127.5 mls/ hr 1X ONCE IV Last administered on 08/21/18at 16:48; Start 08/21/18 at 15:00; Stop 08/21/18 at 16:59; Status DC Sodium Chloride 90 meq/Potassium Chloride 60 meq/ Potassium Phosphate 25 mmol/ Magnesium Sulfate 13 meq/Calcium Gluconate 10 meq/ Multivitamins 10 ml/Chromium/ Copper/Manganese/ Seleni/Zn 1 ml/ Total Parenteral Nutrition/Amino Acids/Dextrose/ Fat Emulsion Intravenous 1,512 ml @ 63 mls/hr TPN CONT IV Last administered on 08/21/18at 22:03; Start 08/21/18 at 22:00; Stop 08/22/18 at 21:59; Status DC Metoprolol Tartrate (Lopressor Vial) 5 mg PRN Q6HRS PRN IVP TACHYCARDIA Last administered on 08/22/18at 17:23; Start 08/22/18 at 10:00 Sodium Phosphate 30 mmol/Dextrose 260 ml @ 65 mls/hr 1X ONCE IV Last administered on 08/22/18at 14:13; Start 08/22/18 at 11:00; Stop 08/22/18 at 14:59; Status DC Magnesium Sulfate 50 ml @ 25 mls/hr 1X ONCE IV Last administered on 08/22/18at 10:52; Start 08/22/18 at 11:00; Stop 08/22/18 at 12:59; Status DC Sodium Chloride 90 meq/Sodium Phosphate 15 mmol/ Potassium Chloride 35 meq/ Potassium Phosphate 25 mmol/ Magnesium Sulfate 18 meq/ Multivitamins 10 ml/Chromium/ Copper/Manganese/ Seleni/Zn 1 ml/ Total Parenteral Nutrition/Amino Acids/Dextrose/ Fat Emulsion Intravenous 1,512 ml @ 63 mls/hr TPN CONT IV Last administered on 08/22/18at 21:28; Start 08/22/18 at 22:00; Stop 08/23/18 at 21:59; Status DC Famotidine (Pepcid) 20 mg QHS PO Last administered on 08/23/18at 21:59; Start 08/23/18 at 21:00 Sodium Chloride 90 meq/Sodium Phosphate 15 mmol/ Potassium Chloride 35 meq/ Potassium Phosphate 25 mmol/ Magnesium Sulfate 18 meq/ Multivitamins 10 ml/Chromium/ Copper/Manganese/ Seleni/Zn 1 ml/ Total Parenteral Nutrition/Amino Acids/Dextrose/ Fat Emulsion Intravenous 1,512 ml @ 63 mls/hr TPN CONT IV Last administered on 08/23/18at 21:59; Start 08/23/18 at 22:00; Stop 08/24/18 at 21:59 Vitamin D (Vitamin D3) 1,000 unit DAILY PO Last administered on 08/24/18at 10:32; Start 08/23/18 at 16:00 Non-Formulary Medication (Multivitamin (Multivitamins)) 1 each DAILY PO ; Start 08/24/18 at 09:00; Status UNV Metoprolol Tartrate (Lopressor) 12.5 mg BID PO Last administered on 08/24/18at 10:32; Start 08/23/18 at 15:30 Sodium Chloride 500 ml @ 500 mls/hr 1X ONCE IV Last administered on 08/23/18at 16:12; Start 08/23/18 at 15:30; Stop 08/23/18 at 16:29; Status DC Iohexol (Omnipaque 300 Mg/ml) 75 ml 1X ONCE IV Last administered on 08/24/18at 10:15; Start 08/24/18 at 08:15; Stop 08/24/18 at 08:18; Status DC Info (CONTRAST GIVEN -- Rx MONITORING) 1 each PRN DAILY PRN MC SEE COMMENTS; Start 08/24/18 at 08:30; Stop 08/26/18 at 08:29 Sodium Chloride 90 meq/Sodium Phosphate 15 mmol/ Potassium Chloride 35 meq/ Potassium Phosphate 25 mmol/ Magnesium Sulfate 18 meq/ Multivitamins 10 ml/Chromium/ Copper/Manganese/ Seleni/Zn 1 ml/ Total Parenteral Nutrition/Amino Acids/Dextrose/ Fat Emulsion Intravenous 1,512 ml @ 63 mls/hr TPN CONT IV ; Start 08/24/18 at 22:00; Stop 08/25/18 at 21:59 Vitamin A/Vitamin D (Vitamin A & D Ointment) 1 gadiel QID TP Last administered on 08/24/18at 14:19; Start 08/24/18 at 17:00 Active Scripts Active Avelox (Moxifloxacin Hcl) 400 Mg Tablet 1 Tab PO DAILY Diphenoxylate-Atropine Tablet (Diphenoxylate Hcl/Atropine) 1 Each Tablet 1 Tab PO PRN QID PRN 30 Days Famotidine 20 Mg Tablet 20 Mg PO QHS 60 Days Aspirin Ec (Aspirin) 81 Mg Tablet. 81 Mg PO DAILYWBKFT 30 Days Toprol Xl (Metoprolol Succinate) 50 Mg Tab.er.24h 50 Mg PO HS 30 Days Hydrocodone-Apap 5-325 (Hydrocodone Bit/Acetaminophen) 1 Tab Tablet 1 Tab PO PRN Q4HRS PRN Reported Multivitamins (Multivitamin) 1 Each Tablet 1 Each PO DAILY Vitamin D3 (Cholecalciferol (Vitamin D3)) 1,000 Unit Tablet 1,000 Unit PO DAILY Vitals/I & O Vital Sign - Last 24 Hours 08/23/18 08/23/18 08/23/18 08/23/18 19:45 20:21 22:00 22:01 Temp 98.2 97.8 98.2 97.8 Pulse 101 95 103 Resp 16 18 B/P (MAP) 108/54 (72) 134/75 (94) 104/75 Pulse Ox 98 99 O2 Delivery Room Air Room Air Room Air 08/24/18 08/24/18 08/24/18 08/24/18 02:08 07:19 08:05 10:32 Temp 97.8 97.3 97.8 97.3 Pulse 94 91 85 Resp 14 14 B/P (MAP) 106/58 (74) 133/72 (92) Pulse Ox 97 97 O2 Delivery Room Air Room Air Room Air 08/24/18 08/24/18 11:00 15:00 Temp 97.4 97.4 Pulse 89 103 Resp 18 18 B/P (MAP) 127/68 (87) 106/64 (78) Pulse Ox 97 O2 Delivery Room Air Room Air Intake and Output 08/23/18 08/23/18 08/24/18 15:00 23:00 07:00 Intake Total 946 ml 150 ml Output Total 300 ml 650 ml 900 ml Balance 646 ml -500 ml -900 ml Nutrition Consultation Dietary Evaluation: Recommendations by RD: Increase Calorie Intake, Protein supplementation, PPN/TPN Comments: Continue w/TPN per current order for nutrition needs REC Vit C 500 mg BID, MVI q day for wound healing as able Advance diet as able to regular, note multiple food intolerances Expected Outcomes/Goals: to meet > 75% est nutr needs via TPN - met, goal ongoing Interpretation of weight loss: >10% in 6 months Malnutrition Findings: Muscle Mass (Severe): Severe Depletion Weight Status: Underweight ALLYN PATE MD Aug 24, 2018 17:23
[2018-08-24 19:33] VITALS: BP 121/69
[2018-08-24] MEDS ORDERED: ADENOSINE 6 MG/2 ML VIAL. IV ONE (20:00)
[2018-08-24] MEDS: FAMOTIDINE 20 MG TABLET. PO SCH (21:13)
--- NOTE | 2018-08-24 21:56 | NUR ---
1944 While pt sitting on bedside commode pt went in SVT HR in 210's, pt looked as though she was going to pass out, pt assisted to bed, this RN ask pt to bare down, dr Sepulveda notified of increase heart order given to give adenosine. 6mg adenosine IVP given pt heart rate returned to normal. Pt daughter returned to bedside notified of event. Call light in place, will cont cont to monitor pt safety and status. pmrn
[2018-08-24] MEDS ORDERED: AMINO ACID IV SCH ×10 (22:00)
[2018-08-24] MEDS ORDERED: [UNRECOGNIZED DRUG - OTHER] IV SCH ×10 (22:00)
[2018-08-24] MEDS ORDERED: DEXTROSE 70% IV SCH ×10 (22:00)
[2018-08-24] MEDS ORDERED: TOTAL PARENTERAL NUTRITION IV SCH ×10 (22:00)
[2018-08-24 23:57] VITALS: BP 108/57
[2018-08-25 03:31] VITALS: BP 103/55
[2018-08-25 05:06] LABS: CALCIUM 8.1 mg/dL (8.5-10.1); CREATININE 0.3 mg/dL (0.6-1.0); GFR 218.7; MAGNESIUM 1.8 mg/dL (1.8-2.4); PHOSPHORUS 2.9 mg/dL (2.6-4.7); POTASSIUM 3.9 mmol/L (3.5-5.1)
[2018-08-25] MEDS: MEROPENEM 500 MG in IV NORMAL SALINE 50ML 50 ML IV SCH ×3 (05:38→21:42)
[2018-08-25 07:00] VITALS: BP 117/60
[2018-08-25] MEDS: METOPROLOL TART IMMED RELEASE 25 MG TABLET. PO SCH ×2 (09:04→21:41)
[2018-08-25] MEDS: CHOLECALCIFEROL (VITAMIN D3) 1,000 UNIT TABLET PO SCH (09:04)
[2018-08-25] MEDS: VITS A & D/LANOLIN TOPICAL OINTMENT 56GM TUBE. TP SCH ×4 (09:05→21:42)
[2018-08-25] MEDS ORDERED: MERO500V15 IV (09:21)
--- NOTE | 2018-08-25 09:24 | SNU/HH DC ---
DISCHARGE ORDERS DISCHARGE INFORMATION: DISCHARGE DATE: Aug 25, 2018 FINAL DIAGNOSIS Problems Medical Problems: (1) Pneumoperitoneum Status: Acute CONDITION ON DISCHARGE: Stable CODE STATUS: Code Status: Full CARE HOME: SNF STAY <30 DAYS: Yes LTAC: ADMIT TO LTAC: Yes POST DISCHARGE ORDERS: ACTIVITY ORDERS: Resume previous activity, Activity as tolerated WEIGHT BEARING STATUS: No restrictions WOUND/INCISION CARE: Change dressing, May get incision wet TREATMENT/EQUIPMENT ORDERS: ADAPTIVE EQUIPMENT NEEDED: None INFUSION EQUIPMENT NEEDED: PICC Line Physical Therapy For: Evalulation/Treatment Occupational Therapy For: Evaluation/Treatment Speech Language Pathology For: Evaluation/Treatment DISCHARGE MEDICATIONS: Home Meds Active Scripts Meropenem (MEROPENEM) 500 Mg Vial, 500 MG IV Q8HRS for sepsis for 14 Days, #42 EACH Prov:ALLYN PATE MD 08/25/18 [Tpn Per Pharmacy] 1 EACH EACH No Conflict Check, 1 EACH MC PRN DAILY PRN for SEE COMMENTS for 45 Days, #45 Prov:ALLYN PATE MD 08/24/18 Metoprolol Tartrate (METOPROLOL TARTRATE) 25 Mg Tablet, 12.5 MG PO BID for svt for 30 Days, #30 TAB Prov:ALLYN PATE MD 08/24/18 Diphenoxylate Hcl/Atropine (DIPHENOXYLATE-ATROPINE TABLET) 1 Each Tablet, 1 TAB PO PRN QID PRN for DIARRHEA for 30 Days, #30 TAB Prov:ALLYN PATE MD 04/21/18 Famotidine (FAMOTIDINE) 20 Mg Tablet, 20 MG PO QHS for gerd for 60 Days, #60 TAB Prov:ALLYN PATE MD 04/19/18 Aspirin (ASPIRIN EC) 81 Mg Tablet.dr, 81 MG PO DAILYWBKFT for svt for 30 Days, #30 TAB.SR Prov:ALLYN PATE MD 04/19/18 Reported Medications Multivitamin (MULTIVITAMINS) 1 Each Tablet, 1 EACH PO DAILY for VITAMIN, TAB 03/07/18 Cholecalciferol (Vitamin D3) (VITAMIN D3) 1,000 Unit Tablet, 1000 UNIT PO DAILY for VITAMIN, TAB 03/07/18 Discontinued Scripts Moxifloxacin Hcl (AVELOX) 400 Mg Tablet, 1 TAB PO DAILY for lung abscess, #7 TAB Prov:CHELSIE MAYNARD MD 05/17/18 Metoprolol Succinate (Toprol Xl) 50 Mg Tab.er.24h, 50 MG PO HS for svt for 30 Days, #30 TAB.SR 6 Refills Prov:ALLYN PATE MD 04/19/18 Hydrocodone Bit/Acetaminophen (HYDROCODONE-APAP 5-325 ) 1 Tab Tablet, 1 TAB PO PRN Q4HRS PRN for MILD PAIN, #30 TAB 0 Refills Prov:AMARILIS ABDI APRN 03/09/18 ALLYN PATE MD Aug 25, 2018 09:24
--- NOTE | 2018-08-25 09:25 | PDOC ---
Infectious Disease Note Subjective Subjective Rapid response called for tachycardia on 08/20, s/p adenosine and IVF bolus Transferred to telemetry floor Currently doing ok - some + BM post contrast No fevers/C/SOA/rash/N/V TPN ROS ROS o/w neg Vital Sign Vital Signs Vital Signs Date Time Temp Pulse Resp B/P (MAP) Pulse Ox O2 Delivery O2 Flow Rate FiO2 08/25/18 09:04 100 08/25/18 07:00 97.5 16 117/60 (79) 100 Room Air 97.5 Physical Exam PHYSICAL EXAM GENERAL: Propped up in bed, alert, cachetic, smiling HEENT: Oral cavity moist NECK: No JVD LUNGS: Decreased breath sounds at the bases. HEART: S1, S2, regular ABDOMEN: Nondistended, soft, BS present EXTREMITIES: 1+ edema BLE, DERMATOLOGIC: Warm, dry, no generalized rash NEUROLOGY: Alert, responds appropriately LUE-PICC clean Labs Lab Laboratory Tests Test 08/24/18 12:31 08/24/18 18:08 08/25/18 00:00 08/25/18 04:30 Glucose (Fingerstick) 91 mg/dL (70-99) 111 mg/dL (70-99) 131 mg/dL (70-99) Sodium Level 137 mmol/L (136-145) Potassium Level 3.9 mmol/L (3.5-5.1) Chloride Level 102 mmol/L (98-107) Carbon Dioxide Level 28 mmol/L (21-32) Anion Gap 7 (6-14) Blood Urea Nitrogen 15 mg/dL (7-20) Creatinine 0.3 mg/dL (0.6-1.0) Estimated GFR (Cockcroft-Gault) 218.7 Glucose Level 102 mg/dL (70-99) Calcium Level 8.1 mg/dL (8.5-10.1) Phosphorus Level 2.9 mg/dL (2.6-4.7) Magnesium Level 1.8 mg/dL (1.8-2.4) Test 08/25/18 07:02 Glucose (Fingerstick) 101 mg/dL (70-99) Micro CT ABD 08/24 IMPRESSION: 1. Diffuse moderate distention of the small bowel without a clear transition point. There are angulated loops in the right lower quadrant suggesting adhesions, but loops distal to this point also appear distended. Correlate clinically to differentiate ileus or enteritis from small bowel obstruction. 2. Wall thickening of the duodenum may be an incidental appearance or reflect inflammation. 3. Diffuse anasarca. Small bilateral pleural effusions. Correlate with other clinical data. CT 08/24 IMPRESSION: 1. The previously seen right lower lobe cavitary lesion is again identified, with an increased gas and diminished fluid component since prior study. 2. Increased cavitation in the separate lesion in the superior segment of the right lower lobe. 3. Multiple new small cavitary nodules are now identified in both lungs. This does raise the question of septic emboli, versus scattered infectious foci or metastases. 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 New lesions on CT 08/24 Multiple cavitary nodules in the lung. AFB cultures negative in 03/2018. SVT - last pm Ongoing subjective weight loss, failure to thrive, nausea, vomiting, weakness, cachexia. Recurrent small bowel obstruction. Abnormal CT with questionable pneumoperitoneum.- better Protein-calorie malnutrition. History of rectal cancer, last colonoscopy 03/2014. History of irritable bowel syndrome. Bandemia/leukopenia - better Mild increase in LFTS - likely TPN Transaminitis - better Plan Plan of Care Continue Merrem (since 08/17) May need bronch given change in CT scan BC NGTD Monitor labs in am Supportive care D/w nursing D/w D/w ELADIO Benítez MD Aug 25, 2018 09:25
--- NOTE | 2018-08-25 09:38 | PDOC ---
Subjective: Subjective: Feeling better. Tolerating PO slowly, stooling. Objective: Objective: Reviewed w/ RN - stooled 4 times, possible DC to [facility] on long-term TPN and w/ plans for IV atbx x 2 weeks, asked for oatmeal and would like an omelette cooked in olive oil with lainez, SVT overnight and received adenosine. Vital Signs: Vital Signs Date Time Temp Pulse Resp B/P (MAP) Pulse Ox O2 Delivery O2 Flow Rate FiO2 08/25/18 09:04 100 08/25/18 07:00 97.5 16 117/60 (79) 100 Room Air 97.5 Labs: Laboratory Tests Test 08/24/18 12:31 08/24/18 18:08 08/25/18 00:00 08/25/18 04:30 Glucose (Fingerstick) 91 mg/dL 111 mg/dL 131 mg/dL Sodium Level 137 mmol/L Potassium Level 3.9 mmol/L Chloride Level 102 mmol/L Carbon Dioxide Level 28 mmol/L Anion Gap 7 Blood Urea Nitrogen 15 mg/dL Creatinine 0.3 mg/dL Estimated GFR (Cockcroft-Gault) 218.7 Glucose Level 102 mg/dL Calcium Level 8.1 mg/dL Phosphorus Level 2.9 mg/dL Magnesium Level 1.8 mg/dL Test 08/25/18 07:02 Glucose (Fingerstick) 101 mg/dL Imaging: CT enterography A/P IMPRESSION: 1. Diffuse moderate distention of the small bowel without a clear transition point. There are angulated loops in the right lower quadrant suggesting adhesions, but loops distal to this point also appear distended. Correlate clinically to differentiate ileus or enteritis from small bowel obstruction. 2. Wall thickening of the duodenum may be an incidental appearance or reflect inflammation. 3. Diffuse anasarca. Small bilateral pleural effusions. Correlate with other clinical data. Chest CT IMPRESSION: 1. The previously seen right lower lobe cavitary lesion is again identified, with an increased gas and diminished fluid component since prior study. 2. Increased cavitation in the separate lesion in the superior segment of the right lower lobe. 3. Multiple new small cavitary nodules are now identified in both lungs. This does raise the question of septic emboli, versus scattered infectious foci or metastases. PE: GEN: NAD LUNGS: room air HEART: RRR ABD: soft, BS+ NEURO/PSYCH: A & O 3 A/P: Recurrent SBO, pulm abscess - recent imaging as above Abnormal LFTs on TPN SVT -- Stooling more and seems appetite has improved. Okay to have an omelette. Recheck LFTs and would continue to monitor if discharged. MARK UP Aug 25, 2018 09:38
[2018-08-25 10:47] LABS: ALBUMIN 1.7 g/dL (3.4-5.0); DIRECT BILIRUBIN 0.1 mg/dL (0.0-0.2); TOTAL BILIRUBIN 0.2 mg/dL (0.2-1.0); TOTAL PROTEIN 4.6 g/dL (6.4-8.2)
[2018-08-25] MEDS: TPN PER PHARMACY MC PRN (10:54)
--- NOTE | 2018-08-25 11:04 | PDOC ---
PULMONARY PROGRESS NOTES Subjective PT TIRED APPEARS DEPRESSED TODAY NOT MORE SOA Vitals Vital Signs Date Time Temp Pulse Resp B/P (MAP) Pulse Ox O2 Delivery O2 Flow Rate FiO2 08/25/18 09:04 100 08/25/18 08:05 Room Air 08/25/18 07:00 97.5 16 117/60 (79) 100 97.5 ROS: No Nausea, No Chest Pain, No Abdominal Pain, No Increase Cough General: Alert, No acute distress Lungs: Clear Cardiovascular: S1, S2 Abdomen: Soft, Non-tender Extremities: No Edema Labs Laboratory Tests Test 08/23/18 11:45 08/23/18 17:16 08/24/18 00:31 08/24/18 05:50 Glucose (Fingerstick) 106 mg/dL (70-99) 119 mg/dL (70-99) 130 mg/dL (70-99) Sodium Level 136 mmol/L (136-145) Potassium Level 3.9 mmol/L (3.5-5.1) Chloride Level 103 mmol/L (98-107) Carbon Dioxide Level 26 mmol/L (21-32) Anion Gap 7 (6-14) Blood Urea Nitrogen 16 mg/dL (7-20) Creatinine 0.3 mg/dL (0.6-1.0) Estimated GFR (Cockcroft-Gault) 218.7 Glucose Level 103 mg/dL (70-99) Calcium Level 7.8 mg/dL (8.5-10.1) Phosphorus Level 2.8 mg/dL (2.6-4.7) Magnesium Level 1.8 mg/dL (1.8-2.4) Total Bilirubin 0.2 mg/dL (0.2-1.0) Direct Bilirubin 0.1 mg/dL (0.0-0.2) Aspartate Amino Transf (AST/SGOT) 58 U/L (15-37) Alanine Aminotransferase (ALT/SGPT) 93 U/L (14-59) Alkaline Phosphatase 193 U/L (46-116) Total Protein 4.5 g/dL (6.4-8.2) Albumin 1.6 g/dL (3.4-5.0) Test 08/24/18 06:48 08/24/18 12:31 08/24/18 18:08 08/25/18 00:00 Glucose (Fingerstick) 94 mg/dL (70-99) 91 mg/dL (70-99) 111 mg/dL (70-99) 131 mg/dL (70-99) Test 08/25/18 04:30 08/25/18 07:02 Sodium Level 137 mmol/L (136-145) Potassium Level 3.9 mmol/L (3.5-5.1) Chloride Level 102 mmol/L (98-107) Carbon Dioxide Level 28 mmol/L (21-32) Anion Gap 7 (6-14) Blood Urea Nitrogen 15 mg/dL (7-20) Creatinine 0.3 mg/dL (0.6-1.0) Estimated GFR (Cockcroft-Gault) 218.7 Glucose Level 102 mg/dL (70-99) Calcium Level 8.1 mg/dL (8.5-10.1) Phosphorus Level 2.9 mg/dL (2.6-4.7) Magnesium Level 1.8 mg/dL (1.8-2.4) Total Bilirubin 0.2 mg/dL (0.2-1.0) Direct Bilirubin 0.1 mg/dL (0.0-0.2) Aspartate Amino Transf (AST/SGOT) 103 U/L (15-37) Alanine Aminotransferase (ALT/SGPT) 130 U/L (14-59) Alkaline Phosphatase 200 U/L (46-116) Total Protein 4.6 g/dL (6.4-8.2) Albumin 1.7 g/dL (3.4-5.0) Glucose (Fingerstick) 101 mg/dL (70-99) Laboratory Tests Test 08/24/18 12:31 08/24/18 18:08 08/25/18 00:00 08/25/18 04:30 Glucose (Fingerstick) 91 mg/dL (70-99) 111 mg/dL (70-99) 131 mg/dL (70-99) Sodium Level 137 mmol/L (136-145) Potassium Level 3.9 mmol/L (3.5-5.1) Chloride Level 102 mmol/L (98-107) Carbon Dioxide Level 28 mmol/L (21-32) Anion Gap 7 (6-14) Blood Urea Nitrogen 15 mg/dL (7-20) Creatinine 0.3 mg/dL (0.6-1.0) Estimated GFR (Cockcroft-Gault) 218.7 Glucose Level 102 mg/dL (70-99) Calcium Level 8.1 mg/dL (8.5-10.1) Phosphorus Level 2.9 mg/dL (2.6-4.7) Magnesium Level 1.8 mg/dL (1.8-2.4) Total Bilirubin 0.2 mg/dL (0.2-1.0) Direct Bilirubin 0.1 mg/dL (0.0-0.2) Aspartate Amino Transf (AST/SGOT) 103 U/L (15-37) Alanine Aminotransferase (ALT/SGPT) 130 U/L (14-59) Alkaline Phosphatase 200 U/L (46-116) Total Protein 4.6 g/dL (6.4-8.2) Albumin 1.7 g/dL (3.4-5.0) Test 08/25/18 07:02 Glucose (Fingerstick) 101 mg/dL (70-99) Medications Active Scripts Medications Dose Route/Sig Max Daily Dose Days Date Category Avelox (Moxifloxacin Hcl) 400 Mg Tablet 1 Tab PO DAILY 05/17/18 Rx Diphenoxylate-Atropine Tablet (Diphenoxylate Hcl/Atropine) 1 Each Tablet 1 Tab PO PRN QID PRN 30 04/21/18 Rx Famotidine 20 Mg Tablet 20 Mg PO QHS 60 04/19/18 Rx Aspirin Ec (Aspirin) 81 Mg Tablet.dr 81 Mg PO DAILYWBKFT 30 04/19/18 Rx Toprol Xl (Metoprolol Succinate) 50 Mg Tab.er.24h 50 Mg PO HS 30 04/19/18 Rx Hydrocodone-Apap 5-325 (Hydrocodone Bit/Acetaminophen) 1 Tab Tablet 1 Tab PO PRN Q4HRS PRN 03/09/18 Rx Multivitamins (Multivitamin) 1 Each Tablet 1 Each PO DAILY 03/07/18 Reported Vitamin D3 (Cholecalciferol (Vitamin D3)) 1,000 Unit Tablet 1,000 Unit PO DAILY 03/07/18 Reported Impression . 1. Abnormal CT chest with a cavitary mass in the right chest, likely abscess. This is considerably reduced in size compared to the 03/2018 CT. D/W RADIOLOGY. Location of recent right lung abscess slightly inferior to previous one and as such new abscess. There is new pneumonia in RUL and tiny thin cavitary nodules in left lung. She has distended stomach She likely has ongoing / recurrent aspiration form bowel obstruction contributing to recurrent lung abscess. 2. MALNUTRITION 3. No significant history of tobacco use. 4. Coffee ground NG aspirate 5. Pneumoperitonium 6. RECURRENT SBO CT 08/24 IMPRESSION: 1. The previously seen right lower lobe cavitary lesion is again identified, with an increased gas and diminished fluid component since prior study. 2. Increased cavitation in the separate lesion in the superior segment of the right lower lobe. 3. Multiple new small cavitary nodules are now identified in both lungs. This does raise the question of septic emboli, versus scattered infectious foci or metastases. Bronch cultures from Mar 2018 BRONCH CULTURE Final Final report BRONCH RES 1 Final Citrobacter freundii 4+ ANTIMICROBIAL SUSCEPTIBILITY Final Comment S = Susceptible; I = Intermediate; R = Resistant P = Positive; N = Negative MICS are expressed in micrograms per mL Antibiotic RSLT#1 RSLT#2 RSLT#3 RSLT#4 Amoxicillin/Clavulanic Acid R>=32 Cefazolin R>=64 Cefepime S<=0.12 Ceftriaxone R>=64 Cefuroxime R>=64 Ciprofloxacin S<=0.25 Gentamicin S<=1 Imipenem S<=0.25 Levofloxacin S<=0.12 Meropenem S<=0.25 Nitrofurantoin S<=16 Tetracycline S<=1 Tobramycin S<=1 Trimethoprim/Sulfa S<=20 Performed at: DA - [facility] [address], [place], [place] [id number] Animal Geneticist: KAILASH Zarate MD, Phone: [phone] Plan . CT REVIEWED CASE D/W DR DWYER WILL PROCEED WITH BRONCH ON TUESDAY ANTI BX PER ID PT EVAL AND TREAT NUTRITIONAL SUPPORT WILL CONTINUE ANTIBX ARTURO ORTEGA MD Aug 25, 2018 11:04
[2018-08-25 11:26] VITALS: BP 140/76
--- NOTE | 2018-08-25 11:39 | NUR ---
SS following for discharge planning. Pt accepted at [facility] pending bed availability. SS awaiting bed availability at [facility] and will proceed accordingly. Pt's RN notified.
--- NOTE | 2018-08-25 12:36 | PDOC ---
SURGICAL PROGRESS NOTE Subjective had been tolerating diet npo for possible bronch having stools now Vital Signs Vital Signs Date Time Temp Pulse Resp B/P (MAP) Pulse Ox O2 Delivery O2 Flow Rate FiO2 08/25/18 11:26 98.3 98 16 140/76 (97) 100 Room Air 98.3 I&O Intake and Output 08/25/18 07:00 Intake Total 1880 ml Output Total 2300 ml Balance -420 ml Intake Oral 1830 ml IV Total 50 ml Output Urine Total 1750 ml Urine/Stool Mix 550 ml # Bowel Movements 4 General: Alert, Oriented X3, Cooperative, No acute distress Abdomen: Soft, No tenderness Labs Laboratory Tests Test 08/23/18 17:16 08/24/18 00:31 08/24/18 05:50 08/24/18 06:48 Glucose (Fingerstick) 119 mg/dL (70-99) 130 mg/dL (70-99) 94 mg/dL (70-99) Sodium Level 136 mmol/L (136-145) Potassium Level 3.9 mmol/L (3.5-5.1) Chloride Level 103 mmol/L (98-107) Carbon Dioxide Level 26 mmol/L (21-32) Anion Gap 7 (6-14) Blood Urea Nitrogen 16 mg/dL (7-20) Creatinine 0.3 mg/dL (0.6-1.0) Estimated GFR (Cockcroft-Gault) 218.7 Glucose Level 103 mg/dL (70-99) Calcium Level 7.8 mg/dL (8.5-10.1) Phosphorus Level 2.8 mg/dL (2.6-4.7) Magnesium Level 1.8 mg/dL (1.8-2.4) Total Bilirubin 0.2 mg/dL (0.2-1.0) Direct Bilirubin 0.1 mg/dL (0.0-0.2) Aspartate Amino Transf (AST/SGOT) 58 U/L (15-37) Alanine Aminotransferase (ALT/SGPT) 93 U/L (14-59) Alkaline Phosphatase 193 U/L (46-116) Total Protein 4.5 g/dL (6.4-8.2) Albumin 1.6 g/dL (3.4-5.0) Test 08/24/18 12:31 08/24/18 18:08 08/25/18 00:00 6/7/19 04:30 Glucose (Fingerstick) 91 mg/dL (70-99) 111 mg/dL (70-99) 131 mg/dL (70-99) Sodium Level 137 mmol/L (136-145) Potassium Level 3.9 mmol/L (3.5-5.1) Chloride Level 102 mmol/L (98-107) Carbon Dioxide Level 28 mmol/L (21-32) Anion Gap 7 (6-14) Blood Urea Nitrogen 15 mg/dL (7-20) Creatinine 0.3 mg/dL (0.6-1.0) Estimated GFR (Cockcroft-Gault) 218.7 Glucose Level 102 mg/dL (70-99) Calcium Level 8.1 mg/dL (8.5-10.1) Phosphorus Level 2.9 mg/dL (2.6-4.7) Magnesium Level 1.8 mg/dL (1.8-2.4) Total Bilirubin 0.2 mg/dL (0.2-1.0) Direct Bilirubin 0.1 mg/dL (0.0-0.2) Aspartate Amino Transf (AST/SGOT) 103 U/L (15-37) Alanine Aminotransferase (ALT/SGPT) 130 U/L (14-59) Alkaline Phosphatase 200 U/L (46-116) Total Protein 4.6 g/dL (6.4-8.2) Albumin 1.7 g/dL (3.4-5.0) Test 08/25/18 07:02 08/25/18 11:38 Glucose (Fingerstick) 101 mg/dL (70-99) 106 mg/dL (70-99) Laboratory Tests Test 08/24/18 18:08 08/25/18 00:00 08/25/18 04:30 08/25/18 07:02 Glucose (Fingerstick) 111 mg/dL (70-99) 131 mg/dL (70-99) 101 mg/dL (70-99) Sodium Level 137 mmol/L (136-145) Potassium Level 3.9 mmol/L (3.5-5.1) Chloride Level 102 mmol/L (98-107) Carbon Dioxide Level 28 mmol/L (21-32) Anion Gap 7 (6-14) Blood Urea Nitrogen 15 mg/dL (7-20) Creatinine 0.3 mg/dL (0.6-1.0) Estimated GFR (Cockcroft-Gault) 218.7 Glucose Level 102 mg/dL (70-99) Calcium Level 8.1 mg/dL (8.5-10.1) Phosphorus Level 2.9 mg/dL (2.6-4.7) Magnesium Level 1.8 mg/dL (1.8-2.4) Total Bilirubin 0.2 mg/dL (0.2-1.0) Direct Bilirubin 0.1 mg/dL (0.0-0.2) Aspartate Amino Transf (AST/SGOT) 103 U/L (15-37) Alanine Aminotransferase (ALT/SGPT) 130 U/L (14-59) Alkaline Phosphatase 200 U/L (46-116) Total Protein 4.6 g/dL (6.4-8.2) Albumin 1.7 g/dL (3.4-5.0) Test 08/25/18 11:38 Glucose (Fingerstick) 106 mg/dL (70-99) Problem List Problems Medical Problems: (1) Pneumoperitoneum Status: Acute Assessment/Plan improved stable diet as tolerated AMARILIS ABDI APRN Aug 25, 2018 12:36
--- NOTE | 2018-08-25 13:51 | PDOC ---
CARDIO Progress Notes Date and Time Date of Service 08/25/2018 Time of Evaluation 1320 Subjective Subjective: No Chest Pain, No shortness of breath, No Palpitations, No Dizziness Vitals Vitals Vital Signs Date Time Temp Pulse Resp B/P (MAP) Pulse Ox O2 Delivery O2 Flow Rate FiO2 08/25/18 11:26 98.3 98 16 140/76 (97) 100 Room Air 98.3 Weight Weight [ ] Input and Output Intake and Output Intake and Output 08/25/18 06:59 Intake Total 1880 ml Output Total 2300 ml Balance -420 ml Intake Oral 1830 ml IV Total 50 ml Output Urine Total 1750 ml Urine/Stool Mix 550 ml # Bowel Movements 4 Laboratory Labs Laboratory Tests Test 08/24/18 18:08 08/25/18 00:00 08/25/18 04:30 08/25/18 07:02 Glucose (Fingerstick) 111 mg/dL (70-99) 131 mg/dL (70-99) 101 mg/dL (70-99) Sodium Level 137 mmol/L (136-145) Potassium Level 3.9 mmol/L (3.5-5.1) Chloride Level 102 mmol/L (98-107) Carbon Dioxide Level 28 mmol/L (21-32) Anion Gap 7 (6-14) Blood Urea Nitrogen 15 mg/dL (7-20) Creatinine 0.3 mg/dL (0.6-1.0) Estimated GFR (Cockcroft-Gault) 218.7 Glucose Level 102 mg/dL (70-99) Calcium Level 8.1 mg/dL (8.5-10.1) Phosphorus Level 2.9 mg/dL (2.6-4.7) Magnesium Level 1.8 mg/dL (1.8-2.4) Total Bilirubin 0.2 mg/dL (0.2-1.0) Direct Bilirubin 0.1 mg/dL (0.0-0.2) Aspartate Amino Transf (AST/SGOT) 103 U/L (15-37) Alanine Aminotransferase (ALT/SGPT) 130 U/L (14-59) Alkaline Phosphatase 200 U/L (46-116) Total Protein 4.6 g/dL (6.4-8.2) Albumin 1.7 g/dL (3.4-5.0) Test 08/25/18 11:38 Glucose (Fingerstick) 106 mg/dL (70-99) Microbiology Micro Microbiology 08/18/18 Blood Culture - Final, Complete NO GROWTH AFTER 5 DAYS Physical Exam HEENT: Neck Supple W Full Motion, Other (left nare NGT) Chest: Symmetric LUNGS: Other (diminished bases) Heart: S1S2, RRR (SR) Abdomen: Soft N/T Extremities: No Edema Neurology: alert, oriented, follow commands Assessment Assessment 1. PSVT; episode last night treated with adenosine, no recurrence since then 2. SBO, recurrent; tolerating PO, 3. Hypertension; controlled 4. Pulmonary mass; abscess versus malignancy 6. Transaminitis 6. Hypomagnesemia: resolved 7. H/o rectal CA, IBS 8. GERD 9. abnormal CT chest: pulmonary consult for possible bronch. 10. Asystole: x1 5 sec post 6 mg adenosine, none further since. Recommendations Metoprolol increase.Monitor rhythm for any bradyarrhythmias. Supportive care. MARTITA CROWDER APRN Aug 25, 2018 13:51
[2018-08-25] MEDS ORDERED: METOPROLOL TART IMMED RELEASE 25 MG TABLET. PO ONE (14:15)
[2018-08-25 14:42] VITALS: BP 140/78
--- NOTE | 2018-08-25 14:47 | NUR ---
Pharmacy TPN Dosing Note S: CHELSIE PINEDA is a 73 year old F Currently receiving Central Continuous TPN started 08/18/18 B:Pertinent PMH: SBO Height: 5 feet, 3 inches Weight: [id number] kg Current diet: Full liquid LABS: Sodium: 137 Potassium: 3.9 Chloride: 102 Calcium: 8.1 Corrected Calcium: 10.02 Magnesium: 1.8 CO2: 26 SCr: 0.3 Glucose: 91-131 Albumin: 1.6 AST: 58 ALT: 93 TPN FORMULA: TPN TYPE: Central Continuous AMINO ACIDS: 60 gm DEXTROSE: 195 gm LIPIDS: 20 gm SODIUM CHLORIDE: 90 mEq SODIUM ACETATE: mEq SODIUM PHOSPHATE: 15 mmol POTASSIUM CHLORIDE: 35 mEq POTASSIUM ACETATE: mEq POTASSIUM PHOSPHATE: 25 mmol MAGNESIUM: 18 mEq CALCIUM: - mEq INSULIN: units MULTIPLE VITAMIN: 10 ml TRACE ELEMENTS: 1 ml(s) R: Continue TPN with no change Will monitor electrolytes, glucose, and tolerance to TPN. DESTINY RENEE [facility], 08/25/18 1367
--- NOTE | 2018-08-25 14:59 | NUR ---
SS following up with discharge planning. Currently awaiting bed availability at [facility]. Discharge medication list phoned and faxed to [facility], ; fax [phone]. Per pt's RN pt able to transport by W/C van.
[2018-08-25 18:25] LABS: FECAL OB PT POSITIVE (NEG)
--- NOTE | 2018-08-25 18:42 | PDOC ---
PROGRESS NOTES Subjective Subjective Patient tolerating diet but still has inadequate by mouth intake. Patient had episode of SVT up to 200 treated with adenosine and no recurrence at this time. Plans to discharge patient to LTAC for IV TPN and antibiotics. Continue PT and OT modalities. Lung abscess managed by pulmonary and [facility] planned on Tuesday. Objective Objective Vital Signs Date Time Temp Pulse Resp B/P (MAP) Pulse Ox O2 Delivery O2 Flow Rate FiO2 08/25/18 14:42 98.6 93 18 140/78 (98) 100 Room Air 98.6 Intake and Output 08/25/18 07:00 Intake Total 1880 ml Output Total 2300 ml Balance -420 ml Intake Oral 1830 ml IV Total 50 ml Output Urine Total 1750 ml Urine/Stool Mix 550 ml # Bowel Movements 4 Physical Exam Abdomen: Normal bowel sounds Heart: Regular rate Extremities: No edema General: Alert Lungs: Other (coarse breath sounds) Assessment Assessment Problems Medical Problems: (1) Pneumoperitoneum Status: Acute 1. Functional Small-bowel obstruction 2. Severe protein malnutrition. 3. Leukopenia. 4. Hyponatremia- resolved 5. Hypomagnesemia. 6. Hypokalemia- replacing 7. 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 Pt on Meropenem currently 8. SVT Plan Plan of Care Pulmonary planning bronchoscopy on Tuesday for evaluation of lung abscesses pneumonia. Continue TPN planned for 4-6 weeks of treatment. Increase activity [facility] Continue IV antibiotics. Increase activity with PT and OT. Comment Review of Relevant I have reviewed the following items jackie (where applicable) has been applied. Labs Laboratory Tests Test 08/24/18 00:31 08/24/18 05:50 08/24/18 06:48 08/24/18 12:31 Glucose (Fingerstick) 130 mg/dL (70-99) 94 mg/dL (70-99) 91 mg/dL (70-99) Sodium Level 136 mmol/L (136-145) Potassium Level 3.9 mmol/L (3.5-5.1) Chloride Level 103 mmol/L (98-107) Carbon Dioxide Level 26 mmol/L (21-32) Anion Gap 7 (6-14) Blood Urea Nitrogen 16 mg/dL (7-20) Creatinine 0.3 mg/dL (0.6-1.0) Estimated GFR (Cockcroft-Gault) 218.7 Glucose Level 103 mg/dL (70-99) Calcium Level 7.8 mg/dL (8.5-10.1) Phosphorus Level 2.8 mg/dL (2.6-4.7) Magnesium Level 1.8 mg/dL (1.8-2.4) Total Bilirubin 0.2 mg/dL (0.2-1.0) Direct Bilirubin 0.1 mg/dL (0.0-0.2) Aspartate Amino Transf (AST/SGOT) 58 U/L (15-37) Alanine Aminotransferase (ALT/SGPT) 93 U/L (14-59) Alkaline Phosphatase 193 U/L (46-116) Total Protein 4.5 g/dL (6.4-8.2) Albumin 1.6 g/dL (3.4-5.0) Test 08/24/18 18:08 08/25/18 00:00 08/25/18 04:30 08/25/18 07:02 Glucose (Fingerstick) 111 mg/dL (70-99) 131 mg/dL (70-99) 101 mg/dL (70-99) Sodium Level 137 mmol/L (136-145) Potassium Level 3.9 mmol/L (3.5-5.1) Chloride Level 102 mmol/L (98-107) Carbon Dioxide Level 28 mmol/L (21-32) Anion Gap 7 (6-14) Blood Urea Nitrogen 15 mg/dL (7-20) Creatinine 0.3 mg/dL (0.6-1.0) Estimated GFR (Cockcroft-Gault) 218.7 Glucose Level 102 mg/dL (70-99) Calcium Level 8.1 mg/dL (8.5-10.1) Phosphorus Level 2.9 mg/dL (2.6-4.7) Magnesium Level 1.8 mg/dL (1.8-2.4) Total Bilirubin 0.2 mg/dL (0.2-1.0) Direct Bilirubin 0.1 mg/dL (0.0-0.2) Aspartate Amino Transf (AST/SGOT) 103 U/L (15-37) Alanine Aminotransferase (ALT/SGPT) 130 U/L (14-59) Alkaline Phosphatase 200 U/L (46-116) Total Protein 4.6 g/dL (6.4-8.2) Albumin 1.7 g/dL (3.4-5.0) Test 08/25/18 11:38 08/25/18 18:00 08/25/18 18:27 Glucose (Fingerstick) 106 mg/dL (70-99) 124 mg/dL (70-99) Stool Occult Blood Positive (NEG) Laboratory Tests Test 08/25/18 00:00 08/25/18 04:30 08/25/18 07:02 08/25/18 11:38 Glucose (Fingerstick) 131 mg/dL (70-99) 101 mg/dL (70-99) 106 mg/dL (70-99) Sodium Level 137 mmol/L (136-145) Potassium Level 3.9 mmol/L (3.5-5.1) Chloride Level 102 mmol/L (98-107) Carbon Dioxide Level 28 mmol/L (21-32) Anion Gap 7 (6-14) Blood Urea Nitrogen 15 mg/dL (7-20) Creatinine 0.3 mg/dL (0.6-1.0) Estimated GFR (Cockcroft-Gault) 218.7 Glucose Level 102 mg/dL (70-99) Calcium Level 8.1 mg/dL (8.5-10.1) Phosphorus Level 2.9 mg/dL (2.6-4.7) Magnesium Level 1.8 mg/dL (1.8-2.4) Total Bilirubin 0.2 mg/dL (0.2-1.0) Direct Bilirubin 0.1 mg/dL (0.0-0.2) Aspartate Amino Transf (AST/SGOT) 103 U/L (15-37) Alanine Aminotransferase (ALT/SGPT) 130 U/L (14-59) Alkaline Phosphatase 200 U/L (46-116) Total Protein 4.6 g/dL (6.4-8.2) Albumin 1.7 g/dL (3.4-5.0) Test 08/25/18 18:00 08/25/18 18:27 Stool Occult Blood Positive (NEG) Glucose (Fingerstick) 124 mg/dL (70-99) Microbiology 08/18/18 Blood Culture - Final, Complete NO GROWTH AFTER 5 DAYS Medications Current Medications Sodium Chloride 1,000 ml @ 100 mls/hr Q10H IV Last administered on 08/17/18at 06:55; Start 08/17/18 at 06:30; Stop 08/17/18 at 16:29; Status DC Ondansetron HCl (Zofran) 4 mg 1X ONCE IV Last administered on 08/17/18at 06:55; Start 08/17/18 at 06:30; Stop 08/17/18 at 06:31; Status DC Iohexol (Omnipaque 240 Mg/ml) 30 ml 1X ONCE PO Last administered on 08/17/18at 07:15; Start 08/17/18 at 07:15; Stop 08/17/18 at 07:16; Status DC Iohexol (Omnipaque 300 Mg/ml) 75 ml 1X ONCE IV Last administered on 08/17/18at 08:11; Start 08/17/18 at 07:15; Stop 08/17/18 at 07:16; Status DC Info (CONTRAST GIVEN -- Rx MONITORING) 1 each PRN DAILY PRN MC SEE COMMENTS; Start 08/17/18 at 07:15; Stop 08/19/18 at 07:14; Status DC Sodium Chloride 1,000 ml @ 1,000 mls/hr 1X ONCE IV Last administered on 08/17/18at 07:45; Start 08/17/18 at 07:45; Stop 08/17/18 at 08:44; Status DC Magnesium Sulfate/ Dextrose 100 ml @ 100 mls/hr 1X ONCE IV Last administered on 08/17/18at 14:55; Start 08/17/18 at 07:45; Stop 08/17/18 at 08:44; Status DC Potassium Chloride/Water 100 ml @ 100 mls/hr Q1H IV Last administered on 08/17/18at 09:23; Start 08/17/18 at 07:45; Stop 08/17/18 at 09:44; Status DC Ertapenem 50 ml @ 100 mls/hr 1X ONCE IV ; Start 08/17/18 at 09:15; Stop 08/17/18 at 09:44; Status UNV Meropenem 500 mg/ Sodium Chloride 50 ml @ 100 mls/hr 1X ONCE IV Last administered on 08/17/18at 10:53; Start 08/17/18 at 09:30; Stop 08/17/18 at 09:59; Status DC Ondansetron HCl (Zofran) 4 mg PRN Q8HRS PRN IV NAUSEA/VOMITING; Start 08/17/18 at 10:00; Stop 08/18/18 at 09:59; Status DC Morphine Sulfate (Morphine Sulfate) 4 mg PRN Q2HR PRN IV PAIN; Start 08/17/18 at 10:00; Stop 08/18/18 at 09:59; Status DC Meropenem 500 mg/ Sodium Chloride 50 ml @ 100 mls/hr Q8HRS IV Last administered on 08/25/18at 14:30; Start 08/17/18 at 14:00 Amino Acids/ Glycerin/ Electrolytes 1,000 ml @ 80 mls/hr [id number] IV Last administered on 08/17/18at 20:57; Start 08/17/18 at 20:15; Stop 08/19/18 at 10:57; Status DC Potassium Chloride/Sodium Chloride 1,000 ml @ 75 mls/hr 1X ONCE IV Last administered on 08/18/18at 11:26; Start 08/18/18 at 07:45; Stop 08/18/18 at 21:04; Status DC Magnesium Sulfate 50 ml @ 25 mls/hr 1X ONCE IV Last administered on 08/18/18at 13:50; Start 08/18/18 at 09:00; Stop 08/18/18 at 10:59; Status DC Famotidine (Pepcid Vial) 20 mg QHS IVP Last administered on 08/22/18at 21:27; Start 08/18/18 at 21:00; Stop 08/23/18 at 09:15; Status DC Info (Tpn Per Pharmacy) 1 each PRN DAILY PRN MC SEE COMMENTS Last administered on 08/25/18at 10:54; Start 08/18/18 at 13:15 Sodium Chloride 90 meq/Potassium Chloride 50 meq/ Potassium Phosphate 13.6 mmol/Magnesium Sulfate 10 meq/ Calcium Gluconate 10 meq/ Multivitamins 10 ml/Chromium/ Copper/Manganese/ Seleni/Zn 1 ml/ Total Parenteral Nutrition/Amino Acids/Dextrose/ Fat Emulsion Intravenous 1,512 ml @ 63 mls/hr TPN CONT IV Last administered on 08/19/18at 03:19; Start 08/18/18 at 22:00; Stop 08/19/18 at 21:59; Status DC Potassium Phosphate 10 mmol/ Dextrose 103.3333 ml @ 51.667 m... Q2H IV Last administered on 08/19/18at 12:06; Start 08/19/18 at 12:00; Stop 08/19/18 at 15:59; Status DC Calcium Gluconate 1000 mg/Dextrose 110 ml @ 220 mls/hr 1X ONCE IV Last administered on 08/19/18at 15:26; Start 08/19/18 at 15:00; Stop 08/19/18 at 15:29; Status DC Furosemide (Lasix) 20 mg 1X ONCE IVP Last administered on 08/19/18at 13:45; Start 08/19/18 at 13:15; Stop 08/19/18 at 13:16; Status DC Sodium Chloride 90 meq/Potassium Chloride 60 meq/ Potassium Phosphate 17 mmol/ Magnesium Sulfate 10 meq/Calcium Gluconate 15 meq/ Multivitamins 10 ml/Chromium/ Copper/Manganese/ Seleni/Zn 1 ml/ Total Parenteral Nutrition/Amino Acids/Dextrose/ Fat Emulsion Intravenous 1,512 ml @ 63 mls/hr TPN CONT IV Last administered on 08/19/18at 21:46; Start 08/19/18 at 22:00; Stop 08/20/18 at 21:59; Status DC Dextrose (Dextrose 50%-Water Syringe) 12.5 gm PRN Q15MIN PRN IV SEE COMMENTS; Start 08/20/18 at 06:30 Adenosine (Adenocard) 6 mg 1X ONCE IV Last administered on 08/20/18at 07:45; Start 08/20/18 at 10:00; Stop 08/20/18 at 10:08; Status DC Sodium Phosphate 30 mmol/Dextrose 260 ml @ 65 mls/hr 1X ONCE IV Last administered on 08/20/18at 13:04; Start 08/20/18 at 13:00; Stop 08/20/18 at 16:59; Status DC Sodium Chloride 90 meq/Potassium Chloride 60 meq/ Potassium Phosphate 25 mmol/ Magnesium Sulfate 10 meq/Calcium Gluconate 10 meq/ Multivitamins 10 ml/Chromium/ Copper/Manganese/ Seleni/Zn 1 ml/ Total Parenteral Nutrition/Amino Acids/Dextrose/ Fat Emulsion Intravenous 1,512 ml @ 63 mls/hr TPN CONT IV Last administered on 08/20/18at 20:32; Start 08/20/18 at 22:00; Stop 08/21/18 at 21:59; Status DC Bisacodyl (Dulcolax Supp) 10 mg 1X ONCE IA Last administered on 08/21/18at 11:14; Start 08/21/18 at 09:45; Stop 08/21/18 at 09:46; Status DC Potassium Phosphate 15 mmol/ Sodium Chloride 255 ml @ 127.5 mls/ hr 1X ONCE IV Last administered on 08/21/18at 16:48; Start 08/21/18 at 15:00; Stop 08/21/18 at 16:59; Status DC Sodium Chloride 90 meq/Potassium Chloride 60 meq/ Potassium Phosphate 25 mmol/ Magnesium Sulfate 13 meq/Calcium Gluconate 10 meq/ Multivitamins 10 ml/Chromium/ Copper/Manganese/ Seleni/Zn 1 ml/ Total Parenteral Nutrition/Amino Acids/Dextrose/ Fat Emulsion Intravenous 1,512 ml @ 63 mls/hr TPN CONT IV Last administered on 08/21/18at 22:03; Start 08/21/18 at 22:00; Stop 08/22/18 at 21:59; Status DC Metoprolol Tartrate (Lopressor Vial) 5 mg PRN Q6HRS PRN IVP TACHYCARDIA Last administered on 08/22/18at 17:23; Start 08/22/18 at 10:00 Sodium Phosphate 30 mmol/Dextrose 260 ml @ 65 mls/hr 1X ONCE IV Last administered on 08/22/18at 14:13; Start 08/22/18 at 11:00; Stop 08/22/18 at 14:59; Status DC Magnesium Sulfate 50 ml @ 25 mls/hr 1X ONCE IV Last administered on 08/22/18at 10:52; Start 08/22/18 at 11:00; Stop 08/22/18 at 12:59; Status DC Sodium Chloride 90 meq/Sodium Phosphate 15 mmol/ Potassium Chloride 35 meq/ Potassium Phosphate 25 mmol/ Magnesium Sulfate 18 meq/ Multivitamins 10 ml/Chromium/ Copper/Manganese/ Seleni/Zn 1 ml/ Total Parenteral Nutrition/Amino Acids/Dextrose/ Fat Emulsion Intravenous 1,512 ml @ 63 mls/hr TPN CONT IV Last administered on 08/22/18at 21:28; Start 08/22/18 at 22:00; Stop 08/23/18 at 21:59; Status DC Famotidine (Pepcid) 20 mg QHS PO Last administered on 6/6/19at 21:13; Start 08/23/18 at 21:00 Sodium Chloride 90 meq/Sodium Phosphate 15 mmol/ Potassium Chloride 35 meq/ Potassium Phosphate 25 mmol/ Magnesium Sulfate 18 meq/ Multivitamins 10 ml/Chromium/ Copper/Manganese/ Seleni/Zn 1 ml/ Total Parenteral Nutrition/Amino Acids/Dextrose/ Fat Emulsion Intravenous 1,512 ml @ 63 mls/hr TPN CONT IV Last administered on 08/23/18at 21:59; Start 08/23/18 at 22:00; Stop 08/24/18 at 21:59; Status DC Vitamin D (Vitamin D3) 1,000 unit DAILY PO Last administered on 08/25/18at 09:04; Start 08/23/18 at 16:00 Non-Formulary Medication (Multivitamin (Multivitamins)) 1 each DAILY PO ; Start 08/24/18 at 09:00; Status UNV Metoprolol Tartrate (Lopressor) 12.5 mg BID PO Last administered on 08/25/18at 09:04; Start 08/23/18 at 15:30; Stop 08/25/18 at 13:43; Status DC Sodium Chloride 500 ml @ 500 mls/hr 1X ONCE IV Last administered on 08/23/18at 16:12; Start 08/23/18 at 15:30; Stop 08/23/18 at 16:29; Status DC Iohexol (Omnipaque 300 Mg/ml) 75 ml 1X ONCE IV Last administered on 08/24/18at 10:15; Start 08/24/18 at 08:15; Stop 08/24/18 at 08:18; Status DC Info (CONTRAST GIVEN -- Rx MONITORING) 1 each PRN DAILY PRN MC SEE COMMENTS; Start 08/24/18 at 08:30; Stop 08/26/18 at 08:29 Sodium Chloride 90 meq/Sodium Phosphate 15 mmol/ Potassium Chloride 35 meq/ Potassium Phosphate 25 mmol/ Magnesium Sulfate 18 meq/ Multivitamins 10 ml/Chromium/ Copper/Manganese/ Seleni/Zn 1 ml/ Total Parenteral Nutrition/Amino Acids/Dextrose/ Fat Emulsion Intravenous 1,512 ml @ 63 mls/hr TPN CONT IV Last administered on 08/24/18at 21:32; Start 08/24/18 at 22:00; Stop 08/25/18 at 21:59 Vitamin A/Vitamin D (Vitamin A & D Ointment) 1 gadiel QID TP Last administered on 08/25/18at 18:01; Start 08/24/18 at 17:00 Adenosine (Adenocard) 6 mg 1X ONCE IV Last administered on 08/24/18at 19:56; Start 08/24/18 at 20:00; Stop 08/24/18 at 20:01; Status DC Sodium Chloride 90 meq/Sodium Phosphate 15 mmol/ Potassium Chloride 35 meq/ Potassium Phosphate 25 mmol/ Magnesium Sulfate 18 meq/ Multivitamins 10 ml/Chromium/ Copper/Manganese/ Seleni/Zn 1 ml/ Total Parenteral Nutrition/Amino Acids/Dextrose/ Fat Emulsion Intravenous 1,512 ml @ 63 mls/hr TPN CONT IV ; Start 08/25/18 at 22:00; Stop 08/26/18 at 21:59 Metoprolol Tartrate (Lopressor) 25 mg BID PO ; Start 08/25/18 at 21:00 Metoprolol Tartrate (Lopressor) 12.5 mg 1X ONCE PO Last administered on 08/25/18at 14:30; Start 08/25/18 at 14:15; Stop 08/25/18 at 14:16; Status DC Active Scripts Active Meropenem 500 Mg Vial 500 Mg IV Q8HRS 14 Days [Tpn Per Pharmacy] 1 EACH Each 1 Each MC PRN DAILY PRN 45 Days Metoprolol Tartrate 25 Mg Tablet 12.5 Mg PO BID 30 Days Diphenoxylate-Atropine Tablet (Diphenoxylate Hcl/Atropine) 1 Each Tablet 1 Tab P O PRN QID PRN 30 Days Famotidine 20 Mg Tablet 20 Mg PO QHS 60 Days Aspirin Ec (Aspirin) 81 Mg Tablet.dr 81 Mg PO [id number] 30 Days Reported Multivitamins (Multivitamin) 1 Each Tablet 1 Each PO DAILY Vitamin D3 (Cholecalciferol (Vitamin D3)) 1,000 Unit Tablet 1,000 Unit PO DAILY Vitals/I & O Vital Sign - Last 24 Hours 08/24/18 08/24/18 08/24/18 08/24/18 19:33 19:35 21:15 23:57 Temp 98.8 98.2 98.8 98.2 Pulse 110 110 97 Resp 20 16 B/P (MAP) 121/69 (86) 118/70 108/57 (74) Pulse Ox 98 97 O2 Delivery Room Air Room Air Room Air 08/25/18 08/25/18 08/25/18 08/25/18 03:31 07:00 08:05 09:04 Temp 97.9 97.5 97.9 97.5 Pulse 91 93 100 Resp 16 16 B/P (MAP) 103/55 (71) 117/60 (79) Pulse Ox 99 100 O2 Delivery Room Air Room Air Room Air 08/25/18 08/25/18 08/25/18 11:26 14:30 14:42 Temp 98.3 98.6 98.3 98.6 Pulse 98 75 93 Resp 16 18 B/P (MAP) 140/76 (97) 140/78 (98) Pulse Ox 100 100 O2 Delivery Room Air Room Air Intake and Output 08/24/18 08/24/18 08/25/18 15:00 23:00 07:00 Intake Total 1350 ml 410 ml 120 ml Output Total 800 ml 450 ml 1050 ml Balance 550 ml -40 ml -930 ml Nutrition Consultation Dietary Evaluation: Recommendations by RD: Increase Calorie Intake, Protein supplementation, PPN/TPN Comments: Continue w/TPN per current order for nutrition needs REC Vit C 500 mg BID, MVI q day for wound healing as able Advance diet as able to regular, note multiple food intolerances Expected Outcomes/Goals: to meet > 75% est nutr needs via TPN - met, goal ongoing Interpretation of weight loss: >10% in 6 months Malnutrition Findings: Muscle Mass (Severe): Severe Depletion Weight Status: Underweight ALLYN PATE MD Aug 25, 2018 18:42
[2018-08-25 18:54] VITALS: BP 124/68
--- NOTE | 2018-08-25 20:55 | PDOC ---
PROGRESS NOTES Subjective Subjective No new complaints. Objective Objective Vital Signs Date Time Temp Pulse Resp B/P (MAP) Pulse Ox O2 Delivery O2 Flow Rate FiO2 08/25/18 20:11 Room Air 08/25/18 18:54 98.4 98 18 124/68 (86) 100 98.4 Intake and Output 08/25/18 07:00 Intake Total 1880 ml Output Total 2300 ml Balance -420 ml Intake Oral 1830 ml IV Total 50 ml Output Urine Total 1750 ml Urine/Stool Mix 550 ml # Bowel Movements 4 Physical Exam Physical Exam She is lying on her right side and comfortable and she is getting up wiht therapy and I spoke to her daughter at bedside, Assessment Assessment Problems Medical Problems: (1) Pneumoperitoneum Status: Acute Plan Plan of Care Agree with plans for transfer to terminal [facility] supervisor acute care unit if she qualifies when medically stable. Comment Review of Relevant I have reviewed the following items jackie (where applicable) has been applied. Labs Laboratory Tests Test 08/24/18 00:31 08/24/18 05:50 08/24/18 06:48 08/24/18 12:31 Glucose (Fingerstick) 130 mg/dL (70-99) 94 mg/dL (70-99) 91 mg/dL (70-99) Sodium Level 136 mmol/L (136-145) Potassium Level 3.9 mmol/L (3.5-5.1) Chloride Level 103 mmol/L (98-107) Carbon Dioxide Level 26 mmol/L (21-32) Anion Gap 7 (6-14) Blood Urea Nitrogen 16 mg/dL (7-20) Creatinine 0.3 mg/dL (0.6-1.0) Estimated GFR (Cockcroft-Gault) 218.7 Glucose Level 103 mg/dL (70-99) Calcium Level 7.8 mg/dL (8.5-10.1) Phosphorus Level 2.8 mg/dL (2.6-4.7) Magnesium Level 1.8 mg/dL (1.8-2.4) Total Bilirubin 0.2 mg/dL (0.2-1.0) Direct Bilirubin 0.1 mg/dL (0.0-0.2) Aspartate Amino Transf (AST/SGOT) 58 U/L (15-37) Alanine Aminotransferase (ALT/SGPT) 93 U/L (14-59) Alkaline Phosphatase 193 U/L (46-116) Total Protein 4.5 g/dL (6.4-8.2) Albumin 1.6 g/dL (3.4-5.0) Test 08/24/18 18:08 08/25/18 00:00 08/25/18 04:30 08/25/18 07:02 Glucose (Fingerstick) 111 mg/dL (70-99) 131 mg/dL (70-99) 101 mg/dL (70-99) Sodium Level 137 mmol/L (136-145) Potassium Level 3.9 mmol/L (3.5-5.1) Chloride Level 102 mmol/L (98-107) Carbon Dioxide Level 28 mmol/L (21-32) Anion Gap 7 (6-14) Blood Urea Nitrogen 15 mg/dL (7-20) Creatinine 0.3 mg/dL (0.6-1.0) Estimated GFR (Cockcroft-Gault) 218.7 Glucose Level 102 mg/dL (70-99) Calcium Level 8.1 mg/dL (8.5-10.1) Phosphorus Level 2.9 mg/dL (2.6-4.7) Magnesium Level 1.8 mg/dL (1.8-2.4) Total Bilirubin 0.2 mg/dL (0.2-1.0) Direct Bilirubin 0.1 mg/dL (0.0-0.2) Aspartate Amino Transf (AST/SGOT) 103 U/L (15-37) Alanine Aminotransferase (ALT/SGPT) 130 U/L (14-59) Alkaline Phosphatase 200 U/L (46-116) Total Protein 4.6 g/dL (6.4-8.2) Albumin 1.7 g/dL (3.4-5.0) Test 08/25/18 11:38 08/25/18 18:00 08/25/18 18:27 Glucose (Fingerstick) 106 mg/dL (70-99) 124 mg/dL (70-99) Stool Occult Blood Positive (NEG) Laboratory Tests Test 08/25/18 00:00 08/25/18 04:30 08/25/18 07:02 08/25/18 11:38 Glucose (Fingerstick) 131 mg/dL (70-99) 101 mg/dL (70-99) 106 mg/dL (70-99) Sodium Level 137 mmol/L (136-145) Potassium Level 3.9 mmol/L (3.5-5.1) Chloride Level 102 mmol/L (98-107) Carbon Dioxide Level 28 mmol/L (21-32) Anion Gap 7 (6-14) Blood Urea Nitrogen 15 mg/dL (7-20) Creatinine 0.3 mg/dL (0.6-1.0) Estimated GFR (Cockcroft-Gault) 218.7 Glucose Level 102 mg/dL (70-99) Calcium Level 8.1 mg/dL (8.5-10.1) Phosphorus Level 2.9 mg/dL (2.6-4.7) Magnesium Level 1.8 mg/dL (1.8-2.4) Total Bilirubin 0.2 mg/dL (0.2-1.0) Direct Bilirubin 0.1 mg/dL (0.0-0.2) Aspartate Amino Transf (AST/SGOT) 103 U/L (15-37) Alanine Aminotransferase (ALT/SGPT) 130 U/L (14-59) Alkaline Phosphatase 200 U/L (46-116) Total Protein 4.6 g/dL (6.4-8.2) Albumin 1.7 g/dL (3.4-5.0) Test 08/25/18 18:00 08/25/18 18:27 Stool Occult Blood Positive (NEG) Glucose (Fingerstick) 124 mg/dL (70-99) Microbiology 08/18/18 Blood Culture - Final, Complete NO GROWTH AFTER 5 DAYS Medications Current Medications Sodium Chloride 1,000 ml @ 100 mls/hr Q10H IV Last administered on 08/17/18at 06:55; Start 08/17/18 at 06:30; Stop 08/17/18 at 16:29; Status DC Ondansetron HCl (Zofran) 4 mg 1X ONCE IV Last administered on 08/17/18at 06:55; Start 08/17/18 at 06:30; Stop 08/17/18 at 06:31; Status DC Iohexol (Omnipaque 240 Mg/ml) 30 ml 1X ONCE PO Last administered on 08/17/18at 07:15; Start 08/17/18 at 07:15; Stop 08/17/18 at 07:16; Status DC Iohexol (Omnipaque 300 Mg/ml) 75 ml 1X ONCE IV Last administered on 08/17/18at 08:11; Start 08/17/18 at 07:15; Stop 08/17/18 at 07:16; Status DC Info (CONTRAST GIVEN -- Rx MONITORING) 1 each PRN DAILY PRN MC SEE COMMENTS; Start 08/17/18 at 07:15; Stop 08/19/18 at 07:14; Status DC Sodium Chloride 1,000 ml @ 1,000 mls/hr 1X ONCE IV Last administered on 08/17/18at 07:45; Start 08/17/18 at 07:45; Stop 08/17/18 at 08:44; Status DC Magnesium Sulfate/ Dextrose 100 ml @ 100 mls/hr 1X ONCE IV Last administered on 08/17/18at 14:55; Start 08/17/18 at 07:45; Stop 08/17/18 at 08:44; Status DC Potassium Chloride/Water 100 ml @ 100 mls/hr Q1H IV Last administered on 08/17/18at 09:23; Start 08/17/18 at 07:45; Stop 08/17/18 at 09:44; Status DC Ertapenem 50 ml @ 100 mls/hr 1X ONCE IV ; Start 08/17/18 at 09:15; Stop 08/17/18 at 09:44; Status UNV Meropenem 500 mg/ Sodium Chloride 50 ml @ 100 mls/hr 1X ONCE IV Last administered on 08/17/18at 10:53; Start 08/17/18 at 09:30; Stop 08/17/18 at 09:59; Status DC Ondansetron HCl (Zofran) 4 mg PRN Q8HRS PRN IV NAUSEA/VOMITING; Start 08/17/18 at 10:00; Stop 08/18/18 at 09:59; Status DC Morphine Sulfate (Morphine Sulfate) 4 mg PRN Q2HR PRN IV PAIN; Start 08/17/18 at 10:00; Stop 08/18/18 at 09:59; Status DC Meropenem 500 mg/ Sodium Chloride 50 ml @ 100 mls/hr Q8HRS IV Last administered on 08/25/18at 14:30; Start 08/17/18 at 14:00 Amino Acids/ Glycerin/ Electrolytes 1,000 ml @ 80 mls/hr [id number] IV Last administered on 08/17/18at 20:57; Start 08/17/18 at 20:15; Stop 08/19/18 at 10:57; Status DC Potassium Chloride/Sodium Chloride 1,000 ml @ 75 mls/hr 1X ONCE IV Last administered on 08/18/18at 11:26; Start 08/18/18 at 07:45; Stop 08/18/18 at 21:04; Status DC Magnesium Sulfate 50 ml @ 25 mls/hr 1X ONCE IV Last administered on 08/18/18at 13:50; Start 08/18/18 at 09:00; Stop 08/18/18 at 10:59; Status DC Famotidine (Pepcid Vial) 20 mg QHS IVP Last administered on 08/22/18at 21:27; Start 08/18/18 at 21:00; Stop 08/23/18 at 09:15; Status DC Info (Tpn Per Pharmacy) 1 each PRN DAILY PRN MC SEE COMMENTS Last administered on 08/25/18at 10:54; Start 08/18/18 at 13:15 Sodium Chloride 90 meq/Potassium Chloride 50 meq/ Potassium Phosphate 13.6 mmol/Magnesium Sulfate 10 meq/ Calcium Gluconate 10 meq/ Multivitamins 10 ml/Chromium/ Copper/Manganese/ Seleni/Zn 1 ml/ Total Parenteral Nutrition/Amino Acids/Dextrose/ Fat Emulsion Intravenous 1,512 ml @ 63 mls/hr TPN CONT IV Last administered on 08/19/18at 03:19; Start 08/18/18 at 22:00; Stop 08/19/18 at 21:59; Status DC Potassium Phosphate 10 mmol/ Dextrose 103.3333 ml @ 51.667 m... Q2H IV Last administered on 08/19/18at 12:06; Start 08/19/18 at 12:00; Stop 08/19/18 at 15:59; Status DC Calcium Gluconate 1000 mg/Dextrose 110 ml @ 220 mls/hr 1X ONCE IV Last administered on 08/19/18at 15:26; Start 08/19/18 at 15:00; Stop 08/19/18 at 15:29; Status DC Furosemide (Lasix) 20 mg 1X ONCE IVP Last administered on 08/19/18at 13:45; Start 08/19/18 at 13:15; Stop 08/19/18 at 13:16; Status DC Sodium Chloride 90 meq/Potassium Chloride 60 meq/ Potassium Phosphate 17 mmol/ Magnesium Sulfate 10 meq/Calcium Gluconate 15 meq/ Multivitamins 10 ml/Chromium/ Copper/Manganese/ Seleni/Zn 1 ml/ Total Parenteral Nutrition/Amino Acids/Dextrose/ Fat Emulsion Intravenous 1,512 ml @ 63 mls/hr TPN CONT IV Last administered on 08/19/18at 21:46; Start 08/19/18 at 22:00; Stop 08/20/18 at 21:59; Status DC Dextrose (Dextrose 50%-Water Syringe) 12.5 gm PRN Q15MIN PRN IV SEE COMMENTS; Start 08/20/18 at 06:30 Adenosine (Adenocard) 6 mg 1X ONCE IV Last administered on 08/20/18at 07:45; Start 08/20/18 at 10:00; Stop 08/20/18 at 10:08; Status DC Sodium Phosphate 30 mmol/Dextrose 260 ml @ 65 mls/hr 1X ONCE IV Last administered on 08/20/18at 13:04; Start 08/20/18 at 13:00; Stop 08/20/18 at 16:59; Status DC Sodium Chloride 90 meq/Potassium Chloride 60 meq/ Potassium Phosphate 25 mmol/ Magnesium Sulfate 10 meq/Calcium Gluconate 10 meq/ Multivitamins 10 ml/Chromium/ Copper/Manganese/ Seleni/Zn 1 ml/ Total Parenteral Nutrition/Amino Acids/Dextrose/ Fat Emulsion Intravenous 1,512 ml @ 63 mls/hr TPN CONT IV Last administered on 08/20/18at 20:32; Start 08/20/18 at 22:00; Stop 08/21/18 at 21:59; Status DC Bisacodyl (Dulcolax Supp) 10 mg 1X ONCE DC Last administered on 08/21/18at 11:14; Start 08/21/18 at 09:45; Stop 08/21/18 at 09:46; Status DC Potassium Phosphate 15 mmol/ Sodium Chloride 255 ml @ 127.5 mls/ hr 1X ONCE IV Last administered on 08/21/18at 16:48; Start 08/21/18 at 15:00; Stop 08/21/18 at 16:59; Status DC Sodium Chloride 90 meq/Potassium Chloride 60 meq/ Potassium Phosphate 25 mmol/ Magnesium Sulfate 13 meq/Calcium Gluconate 10 meq/ Multivitamins 10 ml/Chromium/ Copper/Manganese/ Seleni/Zn 1 ml/ Total Parenteral Nutrition/Amino Acids/Dextrose/ Fat Emulsion Intravenous 1,512 ml @ 63 mls/hr TPN CONT IV Last administered on 08/21/18at 22:03; Start 08/21/18 at 22:00; Stop 08/22/18 at 21:59; Status DC Metoprolol Tartrate (Lopressor Vial) 5 mg PRN Q6HRS PRN IVP TACHYCARDIA Last administered on 08/22/18at 17:23; Start 08/22/18 at 10:00 Sodium Phosphate 30 mmol/Dextrose 260 ml @ 65 mls/hr 1X ONCE IV Last administered on 08/22/18at 14:13; Start 08/22/18 at 11:00; Stop 08/22/18 at 14:59; Status DC Magnesium Sulfate 50 ml @ 25 mls/hr 1X ONCE IV Last administered on 08/22/18at 10:52; Start 08/22/18 at 11:00; Stop 08/22/18 at 12:59; Status DC Sodium Chloride 90 meq/Sodium Phosphate 15 mmol/ Potassium Chloride 35 meq/ Potassium Phosphate 25 mmol/ Magnesium Sulfate 18 meq/ Multivitamins 10 ml/Chromium/ Copper/Manganese/ Seleni/Zn 1 ml/ Total Parenteral Nutrition/Amino Acids/Dextrose/ Fat Emulsion Intravenous 1,512 ml @ 63 mls/hr TPN CONT IV Last administered on 08/22/18at 21:28; Start 08/22/18 at 22:00; Stop 08/23/18 at 21:59; Status DC Famotidine (Pepcid) 20 mg QHS PO Last administered on 08/24/18at 21:13; Start at 21:00 Sodium Chloride 90 meq/Sodium Phosphate 15 mmol/ Potassium Chloride 35 meq/ Potassium Phosphate 25 mmol/ Magnesium Sulfate 18 meq/ Multivitamins 10 ml/Chromium/ Copper/Manganese/ Seleni/Zn 1 ml/ Total Parenteral Nutrition/Amino Acids/Dextrose/ Fat Emulsion Intravenous 1,512 ml @ 63 mls/hr TPN CONT IV Last administered on 08/23/18at 21:59; Start 08/23/18 at 22:00; Stop 08/24/18 at 21:59; Status DC Vitamin D (Vitamin D3) 1,000 unit DAILY PO Last administered on 08/25/18 09:04; Start 08/23/18 at 16:00 Non-Formulary Medication (Multivitamin (Multivitamins)) 1 each DAILY PO ; Start 08/24/18 at 09:00; Status UNV Metoprolol Tartrate (Lopressor) 12.5 mg BID PO Last administered on 08/25/18at 09:04; Start 08/23/18 at 15:30; Stop 08/25/18 at 13:43; Status DC Sodium Chloride 500 ml @ 500 mls/hr 1X ONCE IV Last administered on 08/23/18at 16:12; Start 08/23/18 at 15:30; Stop 08/23/18 at 16:29; Status DC Iohexol (Omnipaque 300 Mg/ml) 75 ml 1X ONCE IV Last administered on 08/24/18at 10:15; Start 08/24/18 at 08:15; Stop 08/24/18 at 08:18; Status DC Info (CONTRAST GIVEN -- Rx MONITORING) 1 each PRN DAILY PRN MC SEE COMMENTS; Start 08/24/18 at 08:30; Stop 08/26/18 at 08:29 Sodium Chloride 90 meq/Sodium Phosphate 15 mmol/ Potassium Chloride 35 meq/ Potassium Phosphate 25 mmol/ Magnesium Sulfate 18 meq/ Multivitamins 10 ml/Chromium/ Copper/Manganese/ Seleni/Zn 1 ml/ Total Parenteral Nutrition/Amino Acids/Dextrose/ Fat Emulsion Intravenous 1,512 ml @ 63 mls/hr TPN CONT IV Last administered on 08/24/18at 21:32; Start 08/24/18 at 22:00; Stop 08/25/18 at 21:59 Vitamin A/Vitamin D (Vitamin A & D Ointment) 1 gadiel QID TP Last administered on 08/25/18at 18:01; Start 08/24/18 at 17:00 Adenosine (Adenocard) 6 mg 1X ONCE IV Last administered on 08/24/18at 19:56; Start 08/24/18 at 20:00; Stop 08/24/18 at 20:01; Status DC Sodium Chloride 90 meq/Sodium Phosphate 15 mmol/ Potassium Chloride 35 meq/ Potassium Phosphate 25 mmol/ Magnesium Sulfate 18 meq/ Multivitamins 10 ml/Chromium/ Copper/Manganese/ Seleni/Zn 1 ml/ Total Parenteral Nutrition/Amino Acids/Dextrose/ Fat Emulsion Intravenous 1,512 ml @ 63 mls/hr TPN CONT IV ; Start 08/25/18 at 22:00; Stop 08/26/18 at 21:59 Metoprolol Tartrate (Lopressor) 25 mg BID PO ; Start 08/25/18 at 21:00 Metoprolol Tartrate (Lopressor) 12.5 mg 1X ONCE PO Last administered on 08/25/18at 14:30; Start 08/25/18 at 14:15; Stop 08/25/18 at 14:16; Status DC Active Scripts Active Meropenem 500 Mg Vial 500 Mg IV Q8HRS 14 Days [Tpn Per Pharmacy] 1 EACH Each 1 Each MC PRN DAILY PRN 45 Days Metoprolol Tartrate 25 Mg Tablet 12.5 Mg PO BID 30 Days Diphenoxylate-Atropine Tablet (Diphenoxylate Hcl/Atropine) 1 Each Tablet 1 Tab PO PRN QID PRN 30 Days Famotidine 20 Mg Tablet 20 Mg PO QHS 60 Days Aspirin Ec (Aspirin) 81 Mg Tablet.dr 81 Mg PO DAILYWBKFT 30 Days Reported Multivitamins (Multivitamin) 1 Each Tablet 1 Each PO DAILY Vitamin D3 (Cholecalciferol (Vitamin D3)) 1,000 Unit Tablet 1,000 Unit PO DAILY Vitals/I & O Vital Sign - Last 24 Hours 08/24/18 08/24/18 08/25/18 08/25/18 21:15 23:57 03:31 07:00 Temp 98.2 97.9 97.5 98.2 97.9 97.5 Pulse 110 97 91 93 Resp 16 16 16 B/P (MAP) 118/70 108/57 (74) 103/55 (71) 117/60 (79) Pulse Ox 97 99 100 O2 Delivery Room Air Room Air Room Air 08/25/18 08/25/18 08/25/18 08/25/18 08:05 09:04 11:26 14:30 Temp 98.3 98.3 Pulse 100 98 75 Resp 16 B/P (MAP) 140/76 (97) Pulse Ox 100 O2 Delivery Room Air Room Air 08/25/18 08/25/18 08/25/18 14:42 18:54 20:11 Temp 98.6 98.4 98.6 98.4 Pulse 93 98 Resp 18 18 B/P (MAP) 140/78 (98) 124/68 (86) Pulse Ox 100 100 O2 Delivery Room Air Room Air Room Air Intake and Output 08/24/18 08/24/18 08/25/18 15:00 23:00 07:00 Intake Total 1350 ml 410 ml 120 ml Output Total 800 ml 450 ml 1050 ml Balance 550 ml -40 ml -930 ml Nutrition Consultation Dietary Evaluation: Recommendations by RD: Increase Calorie Intake, Protein supplementation, PPN/TPN Comments: Continue w/TPN per current order for nutrition needs REC Vit C 500 mg BID, MVI q day for wound healing as able Advance diet as able to regular, note multiple food intolerances Expected Outcomes/Goals: to meet > 75% est nutr needs via TPN - met, goal ongoing Interpretation of weight loss: >10% in 6 months Malnutrition Findings: Muscle Mass (Severe): Severe Depletion Weight Status: Underweight DENNIS WHALEY MD Aug 25, 2018 20:55
[2018-08-25] MEDS: FAMOTIDINE 20 MG TABLET. PO SCH (21:41)
[2018-08-25] MEDS ORDERED: DEXTROSE 70% IV SCH ×10 (22:00)
[2018-08-25] MEDS ORDERED: [UNRECOGNIZED DRUG - OTHER] IV SCH ×10 (22:00)
[2018-08-25] MEDS ORDERED: AMINO ACID IV SCH ×10 (22:00)
[2018-08-25] MEDS ORDERED: TOTAL PARENTERAL NUTRITION IV SCH ×10 (22:00)
[2018-08-25 23:22] VITALS: BP 108/59
[2018-08-26 02:47] VITALS: BP 111/59
[2018-08-26] MEDS: MEROPENEM 500 MG in IV NORMAL SALINE 50ML 50 ML IV SCH ×3 (06:19→21:34)
[2018-08-26 07:00] VITALS: BP 111/60
[2018-08-26 07:01] LABS: CREATININE 0.3 mg/dL (0.6-1.0); GFR 218.7; MAGNESIUM 1.9 mg/dL (1.8-2.4); PHOSPHORUS 2.9 mg/dL (2.6-4.7); POTASSIUM 3.8 mmol/L (3.5-5.1)
--- NOTE | 2018-08-26 07:24 | PDOC ---
PULMONARY PROGRESS NOTES Subjective feels better, no pain, sob, cough better. Vitals Vital Signs Date Time Temp Pulse Resp B/P (MAP) Pulse Ox O2 Delivery O2 Flow Rate FiO2 08/26/18 02:47 98.4 89 18 111/59 (76) 98 Room Air 98.4 ROS: No Nausea, No Chest Pain, No Abdominal Pain, No Increase Cough General: Alert, No acute distress Lungs: Clear Cardiovascular: S1, S2 Abdomen: Soft, Non-tender Extremities: No Edema Labs Laboratory Tests Test 08/24/18 12:31 08/24/18 18:08 08/25/18 00:00 08/25/18 04:30 Glucose (Fingerstick) 91 mg/dL (70-99) 111 mg/dL (70-99) 131 mg/dL (70-99) Sodium Level 137 mmol/L (136-145) Potassium Level 3.9 mmol/L (3.5-5.1) Chloride Level 102 mmol/L (98-107) Carbon Dioxide Level 28 mmol/L (21-32) Anion Gap 7 (6-14) Blood Urea Nitrogen 15 mg/dL (7-20) Creatinine 0.3 mg/dL (0.6-1.0) Estimated GFR (Cockcroft-Gault) 218.7 Glucose Level 102 mg/dL (70-99) Calcium Level 8.1 mg/dL (8.5-10.1) Phosphorus Level 2.9 mg/dL (2.6-4.7) Magnesium Level 1.8 mg/dL (1.8-2.4) Total Bilirubin 0.2 mg/dL (0.2-1.0) Direct Bilirubin 0.1 mg/dL (0.0-0.2) Aspartate Amino Transf (AST/SGOT) 103 U/L (15-37) Alanine Aminotransferase (ALT/SGPT) 130 U/L (14-59) Alkaline Phosphatase 200 U/L (46-116) Total Protein 4.6 g/dL (6.4-8.2) Albumin 1.7 g/dL (3.4-5.0) Test 08/25/18 07:02 08/25/18 11:38 08/25/18 18:00 08/25/18 18:27 Glucose (Fingerstick) 101 mg/dL (70-99) 106 mg/dL (70-99) 124 mg/dL (70-99) Stool Occult Blood Positive (NEG) Test 08/25/18 21:54 08/26/18 06:30 08/26/18 06:47 Glucose (Fingerstick) 115 mg/dL (70-99) 92 mg/dL (70-99) Sodium Level 136 mmol/L (136-145) Potassium Level 3.8 mmol/L (3.5-5.1) Chloride Level 102 mmol/L (98-107) Carbon Dioxide Level 27 mmol/L (21-32) Anion Gap 7 (6-14) Blood Urea Nitrogen 17 mg/dL (7-20) Creatinine 0.3 mg/dL (0.6-1.0) Estimated GFR (Cockcroft-Gault) 218.7 Glucose Level 110 mg/dL (70-99) Calcium Level 8.0 mg/dL (8.5-10.1) Phosphorus Level 2.9 mg/dL (2.6-4.7) Magnesium Level 1.9 mg/dL (1.8-2.4) Iron Level 36 ug/dL (50-170) Total Iron Binding Capacity 205 ug/dL (250-450) Iron Saturation 18 % (15-34) Laboratory Tests Test 08/25/18 11:38 08/25/18 18:00 08/25/18 18:27 08/25/18 21:54 Glucose (Fingerstick) 106 mg/dL (70-99) 124 mg/dL (70-99) 115 mg/dL (70-99) Stool Occult Blood Positive (NEG) Test 08/26/18 06:30 08/26/18 06:47 Sodium Level 136 mmol/L (136-145) Potassium Level 3.8 mmol/L (3.5-5.1) Chloride Level 102 mmol/L (98-107) Carbon Dioxide Level 27 mmol/L (21-32) Anion Gap 7 (6-14) Blood Urea Nitrogen 17 mg/dL (7-20) Creatinine 0.3 mg/dL (0.6-1.0) Estimated GFR (Cockcroft-Gault) 218.7 Glucose Level 110 mg/dL (70-99) Calcium Level 8.0 mg/dL (8.5-10.1) Phosphorus Level 2.9 mg/dL (2.6-4.7) Magnesium Level 1.9 mg/dL (1.8-2.4) Iron Level 36 ug/dL (50-170) Total Iron Binding Capacity 205 ug/dL (250-450) Iron Saturation 18 % (15-34) Glucose (Fingerstick) 92 mg/dL (70-99) Medications Active Scripts Medications Dose Route/Sig Max Daily Dose Days Date Category Avelox (Moxifloxacin Hcl) 400 Mg Tablet 1 Tab PO DAILY 05/17/18 Rx Diphenoxylate-Atropine Tablet (Diphenoxylate Hcl/Atropine) 1 Each Tablet 1 Tab PO PRN QID PRN 30 04/21/18 Rx Famotidine 20 Mg Tablet 20 Mg PO QHS 60 04/19/18 Rx Aspirin Ec (Aspirin) 81 Mg Tablet.dr 81 Mg PO DAILYWBKFT 30 04/19/18 Rx Toprol Xl (Metoprolol Succinate) 50 Mg Tab.er.24h 50 Mg PO HS 30 04/19/18 Rx Hydrocodone-Apap 5-325 (Hydrocodone Bit/Acetaminophen) 1 Tab Tablet 1 Tab PO PRN Q4HRS PRN 03/09/18 Rx Multivitamins (Multivitamin) 1 Each Tablet 1 Each PO DAILY 03/07/18 Reported Vitamin D3 (Cholecalciferol (Vitamin D3)) 1,000 Unit Tablet 1,000 Unit PO DAILY 03/07/[address] reviewed 1. The previously seen right lower lobe cavitary lesion is again identified, with an increased gas and diminished fluid component since prior study. 2. Increased cavitation in the separate lesion in the superior segment of the right lower lobe. 3. Multiple new small cavitary nodules are now identified in both lungs. This does raise the question of septic emboli, versus scattered infectious foci or metastases. Impression . 1. Abnormal CT chest with a cavitary mass in the right chest, likely abscess. This is considerably reduced in size compared to the 03/2018 CT. D/W RADIOLOGY. Location of recent right lung abscess slightly inferior to previous one and as such new abscess. There is new pneumonia in RUL and tiny thin cavitary nodules in left lung. She has distended stomach She likely has ongoing / recurrent aspiration form bowel obstruction contributing to recurrent lung abscess. 2. MALNUTRITION 3. No significant history of tobacco use. 4. Coffee ground NG aspirate 5. Pneumoperitonium 6. RECURRENT SBO, ? aspiration Bronch cultures from Mar 2018 BRONCH CULTURE Final Final report BRONCH RES 1 Final Citrobacter freundii 4+ ANTIMICROBIAL SUSCEPTIBILITY Final Comment S = Susceptible; I = Intermediate; R = Resistant P = Positive; N = Negative MICS are expressed in micrograms per mL Antibiotic RSLT#1 RSLT#2 RSLT#3 RSLT#4 Amoxicillin/Clavulanic Acid R>=32 Cefazolin R>=64 Cefepime S<=0.12 Ceftriaxone R>=64 Cefuroxime R>=64 Ciprofloxacin S<=0.25 Gentamicin S<=1 Imipenem S<=0.25 Levofloxacin S<=0.12 Meropenem S<=0.25 Nitrofurantoin S<=16 Tetracycline S<=1 Tobramycin S<=1 Trimethoprim/Sulfa S<=20 Performed at: - [facility], [place], [place] [id number] Supervisor Cold Rolling: KAILASH Zarate MD, Phone: [phone] Plan . CT REVIEWED BRONCH ON TUESDAY, npo after midnight on tuesday elevate hob, aspiration precaution ANTI BX PER ID PT EVAL AND TREAT, increase activity NUTRITIONAL SUPPORT WILL CONTINUE ANTIBX discussed w rn, rn RO BURCIAGA MD Aug 26, 2018 07:24
[2018-08-26] MEDS: CHOLECALCIFEROL (VITAMIN D3) 1,000 UNIT TABLET PO SCH (08:08)
[2018-08-26] MEDS: METOPROLOL TART IMMED RELEASE 25 MG TABLET. PO SCH ×2 (08:08→21:36)
[2018-08-26] MEDS: VITS A & D/LANOLIN TOPICAL OINTMENT 56GM TUBE. TP SCH ×4 (08:08→21:33)
--- NOTE | 2018-08-26 10:56 | PDOC ---
PROGRESS NOTES Subjective Subjective No new complaints. Objective Objective Vital Signs Date Time Temp Pulse Resp B/P (MAP) Pulse Ox O2 Delivery O2 Flow Rate FiO2 08/26/18 08:08 95 111/60 08/26/18 07:40 Room Air 08/26/18 07:00 98.0 18 97 98.0 Intake and Output 08/26/18 06:59 Intake Total 50 ml Output Total 1525 ml Balance -1475 ml Intake Oral 50 ml Output Urine Total 1525 ml # Bowel Movements 11 Physical Exam Physical Exam She is alert,supine in bed and continues with generalized muscle weakness and mobility and self care limitations. Assessment Assessment Problems Medical Problems: (1) Pneumoperitoneum Status: Acute Plan Plan of Care To get her up as tolerated. Comment Review of Relevant I have reviewed the following items jackie (where applicable) has been applied. Labs Laboratory Tests Test 08/24/18 12:31 08/24/18 18:08 08/25/18 00:00 08/25/18 04:30 Glucose (Fingerstick) 91 mg/dL (70-99) 111 mg/dL (70-99) 131 mg/dL (70-99) Sodium Level 137 mmol/L (136-145) Potassium Level 3.9 mmol/L (3.5-5.1) Chloride Level 102 mmol/L (98-107) Carbon Dioxide Level 28 mmol/L (21-32) Anion Gap 7 (6-14) Blood Urea Nitrogen 15 mg/dL (7-20) Creatinine 0.3 mg/dL (0.6-1.0) Estimated GFR (Cockcroft-Gault) 218.7 Glucose Level 102 mg/dL (70-99) Calcium Level 8.1 mg/dL (8.5-10.1) Phosphorus Level 2.9 mg/dL (2.6-4.7) Magnesium Level 1.8 mg/dL (1.8-2.4) Total Bilirubin 0.2 mg/dL (0.2-1.0) Direct Bilirubin 0.1 mg/dL (0.0-0.2) Aspartate Amino Transf (AST/SGOT) 103 U/L (15-37) Alanine Aminotransferase (ALT/SGPT) 130 U/L (14-59) Alkaline Phosphatase 200 U/L (46-116) Total Protein 4.6 g/dL (6.4-8.2) Albumin 1.7 g/dL (3.4-5.0) Test 08/25/18 07:02 08/25/18 11:38 08/25/18 18:00 08/25/18 18:27 Glucose (Fingerstick) 101 mg/dL (70-99) 106 mg/dL (70-99) 124 mg/dL (70-99) Stool Occult Blood Positive (NEG) Test 08/25/18 21:54 08/26/18 06:30 08/26/18 06:47 Glucose (Fingerstick) 115 mg/dL (70-99) 92 mg/dL (70-99) Sodium Level 136 mmol/L (136-145) Potassium Level 3.8 mmol/L (3.5-5.1) Chloride Level 102 mmol/L (98-107) Carbon Dioxide Level 27 mmol/L (21-32) Anion Gap 7 (6-14) Blood Urea Nitrogen 17 mg/dL (7-20) Creatinine 0.3 mg/dL (0.6-1.0) Estimated GFR (Cockcroft-Gault) 218.7 Glucose Level 110 mg/dL (70-99) Calcium Level 8.0 mg/dL (8.5-10.1) Phosphorus Level 2.9 mg/dL (2.6-4.7) Magnesium Level 1.9 mg/dL (1.8-2.4) Iron Level 36 ug/dL (50-170) Total Iron Binding Capacity 205 ug/dL (250-450) Iron Saturation 18 % (15-34) Laboratory Tests Test 08/25/18 11:38 08/25/18 18:00 08/25/18 18:27 08/25/18 21:54 Glucose (Fingerstick) 106 mg/dL (70-99) 124 mg/dL (70-99) 115 mg/dL (70-99) Stool Occult Blood Positive (NEG) Test 08/26/18 06:30 08/26/18 06:47 Sodium Level 136 mmol/L (136-145) Potassium Level 3.8 mmol/L (3.5-5.1) Chloride Level 102 mmol/L (98-107) Carbon Dioxide Level 27 mmol/L (21-32) Anion Gap 7 (6-14) Blood Urea Nitrogen 17 mg/dL (7-20) Creatinine 0.3 mg/dL (0.6-1.0) Estimated GFR (Cockcroft-Gault) 218.7 Glucose Level 110 mg/dL (70-99) Calcium Level 8.0 mg/dL (8.5-10.1) Phosphorus Level 2.9 mg/dL (2.6-4.7) Magnesium Level 1.9 mg/dL (1.8-2.4) Iron Level 36 ug/dL (50-170) Total Iron Binding Capacity 205 ug/dL (250-450) Iron Saturation 18 % (15-34) Glucose (Fingerstick) 92 mg/dL (70-99) Microbiology 08/18/18 Blood Culture - Final, Complete NO GROWTH AFTER 5 DAYS Medications Current Medications Sodium Chloride 1,000 ml @ 100 mls/hr Q10H IV Last administered on 08/17/18at 06:55; Start 08/17/18 at 06:30; Stop 08/17/18 at 16:29; Status DC Ondansetron HCl (Zofran) 4 mg 1X ONCE IV Last administered on 08/17/18at 06:55; Start 08/17/18 at 06:30; Stop 08/17/18 at 06:31; Status DC Iohexol (Omnipaque 240 Mg/ml) 30 ml 1X ONCE PO Last administered on 08/17/18at 07:15; Start 08/17/18 at 07:15; Stop 08/17/18 at 07:16; Status DC Iohexol (Omnipaque 300 Mg/ml) 75 ml 1X ONCE IV Last administered on 08/17/18at 08:11; Start 08/17/18 at 07:15; Stop 08/17/18 at 07:16; Status DC Info (CONTRAST GIVEN -- Rx MONITORING) 1 each PRN DAILY PRN MC SEE COMMENTS; Start 08/17/18 at 07:15; Stop 08/19/18 at 07:14; Status DC Sodium Chloride 1,000 ml @ 1,000 mls/hr 1X ONCE IV Last administered on 08/17/18at 07:45; Start 08/17/18 at 07:45; Stop 08/17/18 at 08:44; Status DC Magnesium Sulfate/ Dextrose 100 ml @ 100 mls/hr 1X ONCE IV Last administered on 08/17/18at 14:55; Start 08/17/18 at 07:45; Stop 08/17/18 at 08:44; Status DC Potassium Chloride/Water 100 ml @ 100 mls/hr Q1H IV Last administered on 08/17/18at 09:23; Start 08/17/18 at 07:45; Stop 08/17/18 at 09:44; Status DC Ertapenem 50 ml @ 100 mls/hr 1X ONCE IV ; Start 08/17/18 at 09:15; Stop 08/17/18 at 09:44; Status UNV Meropenem 500 mg/ Sodium Chloride 50 ml @ 100 mls/hr 1X ONCE IV Last administered on 08/17/18at 10:53; Start 08/17/18 at 09:30; Stop 08/17/18 at 09:59; Status DC Ondansetron HCl (Zofran) 4 mg PRN Q8HRS PRN IV NAUSEA/VOMITING; Start 08/17/18 at 10:00; Stop 08/18/18 at 09:59; Status DC Morphine Sulfate (Morphine Sulfate) 4 mg PRN Q2HR PRN IV PAIN; Start 08/17/18 at 10:00; Stop 08/18/18 at 09:59; Status DC Meropenem 500 mg/ Sodium Chloride 50 ml @ 100 mls/hr Q8HRS IV Last administered on 08/26/18at 06:19; Start 08/17/18 at 14:00 Amino Acids/ Glycerin/ Electrolytes 1,000 ml @ 80 mls/hr [id number] IV Last administered on 08/17/18at 20:57; Start 08/17/18 at 20:15; Stop 08/19/18 at 10:57; Status DC Potassium Chloride/Sodium Chloride 1,000 ml @ 75 mls/hr 1X ONCE IV Last administered on 08/18/18at 11:26; Start 08/18/18 at 07:45; Stop 08/18/18 at 21:04; Status DC Magnesium Sulfate 50 ml @ 25 mls/hr 1X ONCE IV Last administered on 08/18/18at 13:50; Start 08/18/18 at 09:00; Stop 08/18/18 at 10:59; Status DC Famotidine (Pepcid Vial) 20 mg QHS IVP Last administered on 08/22/18at 21:27; Start 08/18/18 at 21:00; Stop 08/23/18 at 09:15; Status DC Info (Tpn Per Pharmacy) 1 each PRN DAILY PRN MC SEE COMMENTS Last administered on 08/25/18at 10:54; Start 08/18/18 at 13:15 Sodium Chloride 90 meq/Potassium Chloride 50 meq/ Potassium Phosphate 13.6 mmol/Magnesium Sulfate 10 meq/ Calcium Gluconate 10 meq/ Multivitamins 10 ml/Chromium/ Copper/Manganese/ Seleni/Zn 1 ml/ Total Parenteral Nutrition/Amino Acids/Dextrose/ Fat Emulsion Intravenous 1,512 ml @ 63 mls/hr TPN CONT IV Last administered on 08/19/18at 03:19; Start 08/18/18 at 22:00; Stop 08/19/18 at 21:59; Status DC Potassium Phosphate 10 mmol/ Dextrose 103.3333 ml @ 51.667 m... Q2H IV Last administered on 08/19/18at 12:06; Start 08/19/18 at 12:00; Stop 08/19/18 at 15:59; Status DC Calcium Gluconate 1000 mg/Dextrose 110 ml @ 220 mls/hr 1X ONCE IV Last administered on 08/19/18at 15:26; Start 08/19/18 at 15:00; Stop 08/19/18 at 15:29; Status DC Furosemide (Lasix) 20 mg 1X ONCE IVP Last administered on 08/19/18at 13:45; Start 08/19/18 at 13:15; Stop 08/19/18 at 13:16; Status DC Sodium Chloride 90 meq/Potassium Chloride 60 meq/ Potassium Phosphate 17 mmol/ Magnesium Sulfate 10 meq/Calcium Gluconate 15 meq/ Multivitamins 10 ml/Chromium/ Copper/Manganese/ Seleni/Zn 1 ml/ Total Parenteral Nutrition/Amino Acids/Dextrose/ Fat Emulsion Intravenous 1,512 ml @ 63 mls/hr TPN CONT IV Last administered on 08/19/18at 21:46; Start 08/19/18 at 22:00; Stop 08/20/18 at 21:59; Status DC Dextrose (Dextrose 50%-Water Syringe) 12.5 gm PRN Q15MIN PRN IV SEE COMMENTS; Start 08/20/18 at 06:30 Adenosine (Adenocard) 6 mg 1X ONCE IV Last administered on 08/20/18at 07:45; Start 08/20/18 at 10:00; Stop 08/20/18 at 10:08; Status DC Sodium Phosphate 30 mmol/Dextrose 260 ml @ 65 mls/hr 1X ONCE IV Last administered on 08/20/18at 13:04; Start 08/20/18 at 13:00; Stop 08/20/18 at 16:59; Status DC Sodium Chloride 90 meq/Potassium Chloride 60 meq/ Potassium Phosphate 25 mmol/ Magnesium Sulfate 10 meq/Calcium Gluconate 10 meq/ Multivitamins 10 ml/Chromium/ Copper/Manganese/ Seleni/Zn 1 ml/ Total Parenteral Nutrition/Amino Acids/Dextrose/ Fat Emulsion Intravenous 1,512 ml @ 63 mls/hr TPN CONT IV Last administered on 08/20/18at 20:32; Start 08/20/18 at 22:00; Stop 08/21/18 at 21:59; Status DC Bisacodyl (Dulcolax Supp) 10 mg 1X ONCE [place] Last administered on 08/21/18at 11:14; Start 08/21/18 at 09:45; Stop 08/21/18 at 09:46; Status DC Potassium Phosphate 15 mmol/ Sodium Chloride 255 ml @ 127.5 mls/ hr 1X ONCE IV Last administered on 08/21/18at 16:48; Start 08/21/18 at 15:00; Stop 08/21/18 at 16:59; Status DC Sodium Chloride 90 meq/Potassium Chloride 60 meq/ Potassium Phosphate 25 mmol/ Magnesium Sulfate 13 meq/Calcium Gluconate 10 meq/ Multivitamins 10 ml/Chromium/ Copper/Manganese/ Seleni/Zn 1 ml/ Total Parenteral Nutrition/Amino Acids/Dextrose/ Fat Emulsion Intravenous 1,512 ml @ 63 mls/hr TPN CONT IV Last administered on 08/21/18at 22:03; Start 08/21/18 at 22:00; Stop 08/22/18 at 21:59; Status DC Metoprolol Tartrate (Lopressor Vial) 5 mg PRN Q6HRS PRN IVP TACHYCARDIA Last administered on 08/22/18at 17:23; Start 08/22/18 at 10:00 Sodium Phosphate 30 mmol/Dextrose 260 ml @ 65 mls/hr 1X ONCE IV Last administered on 08/22/18at 14:13; Start 08/22/18 at 11:00; Stop 08/22/18 at 14:59; Status DC Magnesium Sulfate 50 ml @ 25 mls/hr 1X ONCE IV Last administered on 08/22/18at 10:52; Start 08/22/18 at 11:00; Stop 08/22/18 at 12:59; Status DC Sodium Chloride 90 meq/Sodium Phosphate 15 mmol/ Potassium Chloride 35 meq/ Potassium Phosphate 25 mmol/ Magnesium Sulfate 18 meq/ Multivitamins 10 ml/Chromium/ Copper/Manganese/ Seleni/Zn 1 ml/ Total Parenteral Nutrition/Amino Acids/Dextrose/ Fat Emulsion Intravenous 1,512 ml @ 63 mls/hr TPN CONT IV Last administered on 08/22/18at 21:28; Start 08/22/18 at 22:00; Stop 08/23/18 at 21:59; Status DC Famotidine (Pepcid) 20 mg QHS PO Last administered on 08/25/18at 21:41; Start 08/23/18 at 21:00 Sodium Chloride 90 meq/Sodium Phosphate 15 mmol/ Potassium Chloride 35 meq/ Potassium Phosphate 25 mmol/ Magnesium Sulfate 18 meq/ Multivitamins 10 ml/Chromium/ Copper/Manganese/ Seleni/Zn 1 ml/ Total Parenteral Nutrition/Amino Acids/Dextrose/ Fat Emulsion Intravenous 1,512 ml @ 63 mls/hr TPN CONT IV Last administered on 08/23/18at 21:59; Start 08/23/18 at 22:00; Stop 08/24/18 at 21:59; Status DC Vitamin D (Vitamin D3) 1,000 unit DAILY PO Last administered on 08/26/18at 08:08; Start 08/23/18 at 16:00 Non-Formulary Medication (Multivitamin (Multivitamins)) 1 each DAILY PO ; Start 08/24/18 at 09:00; Status UNV Metoprolol Tartrate (Lopressor) 12.5 mg BID PO Last administered on 08/25/18at 09:04; Start 08/23/18 at 15:30; Stop 08/25/18 at 13:43; Status DC Sodium Chloride 500 ml @ 500 mls/hr 1X ONCE IV Last administered on 08/23/18at 16:12; Start 08/23/18 at 15:30; Stop 08/23/18 at 16:29; Status DC Iohexol (Omnipaque 300 Mg/ml) 75 ml 1X ONCE IV Last administered on 08/24/18at 10:15; Start 08/24/18 at 08:15; Stop 08/24/18 at 08:18; Status DC Info (CONTRAST GIVEN -- Rx MONITORING) 1 each PRN DAILY PRN MC SEE COMMENTS; Start 08/24/18 at 08:30; Stop 08/26/18 at 08:29; Status DC Sodium Chloride 90 meq/Sodium Phosphate 15 mmol/ Potassium Chloride 35 meq/ Potassium Phosphate 25 mmol/ Magnesium Sulfate 18 meq/ Multivitamins 10 ml/Chromium/ Copper/Manganese/ Seleni/Zn 1 ml/ Total Parenteral Nutrition/Amino Acids/Dextrose/ Fat Emulsion Intravenous 1,512 ml @ 63 mls/hr TPN CONT IV Last administered on 08/24/18at 21:32; Start 08/24/18 at 22:00; Stop 08/25/18 at 21:59; Status DC Vitamin A/Vitamin D (Vitamin A & D Ointment) 1 gadiel QID TP Last administered on 08/26/18at 08:08; Start 08/24/18 at 17:00 Adenosine (Adenocard) 6 mg 1X ONCE IV Last administered on 08/24/18at 19:56; Start 08/24/18 at 20:00; Stop 08/24/18 at 20:01; Status DC Sodium Chloride 90 meq/Sodium Phosphate 15 mmol/ Potassium Chloride 35 meq/ Potassium Phosphate 25 mmol/ Magnesium Sulfate 18 meq/ Multivitamins 10 ml/Chromium/ Copper/Manganese/ Seleni/Zn 1 ml/ Total Parenteral Nutrition/Amino Acids/Dextrose/ Fat Emulsion Intravenous 1,512 ml @ 63 mls/hr TPN CONT IV Last administered on 08/25/18at 21:42; Start 08/25/18 at 22:00; Stop 08/26/18 at 21:59 Metoprolol Tartrate (Lopressor) 25 mg BID PO Last administered on 08/26/18at 08:08; Start 08/25/18 at 21:00 Metoprolol Tartrate (Lopressor) 12.5 mg 1X ONCE PO Last administered on 08/25/18at 14:30; Start 08/25/18 at 14:15; Stop 08/25/18 at 14:16; Status DC Active Scripts Active Meropenem 500 Mg Vial 500 Mg IV Q8HRS 14 Days [Tpn Per Pharmacy] 1 EACH Each 1 Each PRN DAILY PRN 45 Days Metoprolol Tartrate 25 Mg Tablet 12.5 Mg PO BID 30 Days Diphenoxylate-Atropine Tablet (Diphenoxylate Hcl/Atropine) 1 Each Tablet 1 Tab PO PRN QID PRN 30 Days Famotidine 20 Mg Tablet 20 Mg PO QHS 60 Days Aspirin Ec (Aspirin) 81 Mg Tablet. 81 Mg PO DAILYWBKFT 30 Days Reported Multivitamins (Multivitamin) 1 Each Tablet 1 Each PO DAILY Vitamin D3 (Cholecalciferol (Vitamin D3)) 1,000 Unit Tablet 1,000 Unit PO DAILY Vitals/I & O Vital Sign - Last 24 Hours 08/25/18 08/25/18 08/25/18 08/25/18 11:26 14:30 14:42 18:54 Temp 98.3 98.6 98.4 98.3 98.6 98.4 Pulse 98 75 93 98 Resp 16 18 18 B/P (MAP) 140/76 (97) 140/78 (98) 124/68 (86) Pulse Ox 100 100 100 O2 Delivery Room Air Room Air Room Air 08/25/18 08/25/18 08/25/18 08/26/18 20:11 21:41 23:22 02:47 Temp 98.4 98.4 98.4 98.4 Pulse 98 94 89 Resp 18 18 B/P (MAP) 124/68 108/59 (75) 111/59 (76) Pulse Ox 98 98 O2 Delivery Room Air Room Air Room Air 08/26/18 08/26/18 08/26/18 07:00 07:40 08:08 Temp 98.0 98.0 Pulse 95 95 Resp 18 B/P (MAP) 111/60 (77) 111/60 Pulse Ox 97 O2 Delivery Room Air Room Air Intake and Output 08/25/18 08/25/18 08/26/18 14:59 22:59 06:59 Intake Total 50 ml Output Total 250 ml 400 ml 875 ml Balance -200 ml -400 ml -875 ml Nutrition Consultation Dietary Evaluation: Recommendations by RD: Increase Calorie Intake, Protein supplementation, PPN/TPN Comments: Continue w/TPN per current order for nutrition needs REC Vit C 500 mg BID, MVI q day for wound healing as able Advance diet as able to regular, note multiple food intolerances Expected Outcomes/Goals: to meet > 75% est nutr needs via TPN - met, goal ongoing Interpretation of weight loss: >10% in 6 months Malnutrition Findings: Muscle Mass (Severe): Severe Depletion Weight Status: Underweight DENNIS WHALEY MD Aug 26, 2018 10:56
[2018-08-26 10:58] VITALS: BP 111/59
[2018-08-26] MEDS: TPN PER PHARMACY MC PRN ×2 (11:17→11:26)
--- NOTE | 2018-08-26 11:26 | NUR ---
Pharmacy TPN Dosing Note S: CHELSIE PINEDA is a 73 year old F Currently receiving Central Continuous TPN started 08/18/18 B:Pertinent PMH: SBO Height: 5 feet, 3 inches Weight: 42.381782 kg Current diet: Full liquid LABS: Sodium: 136 Potassium: 3.8 Chloride: 102 Calcium: 8.0 Corrected Calcium: 9.84 Magnesium: 1.9 CO2: 27 SCr: 0.3 Glucose: 110 Albumin: 1.7 AST: 58 ALT: 93 TPN FORMULA: TPN TYPE: Central Continuous AMINO ACIDS: 60 gm DEXTROSE: 195 gm LIPIDS: 20 gm SODIUM CHLORIDE: 90 mEq SODIUM ACETATE: mEq SODIUM PHOSPHATE: 15 mmol POTASSIUM CHLORIDE: 35 mEq POTASSIUM ACETATE: mEq POTASSIUM PHOSPHATE: 25 mmol MAGNESIUM: 18 mEq CALCIUM: - mEq INSULIN: units MULTIPLE VITAMIN: 10 ml TRACE ELEMENTS: 1 ml(s) TPN PLAN: Continue same formula today. R: Continue TPN as ordered with no changes Will monitor electrolytes, glucose, and tolerance to TPN. CINDY SCOTT, FORMERLY [facility] [place], 08/26/18 1126
--- NOTE | 2018-08-26 11:28 | PDOC ---
Infectious Disease Note Subjective Subjective Rapid response called for tachycardia on 08/20, s/p adenosine and IVF bolus Transferred to telemetry floor Having a pretty good morning so far Tolerating full liquids + diarrhea Denies N/V/D/pain/SOA No F/C/S TPN ROS ROS per HPI Vital Sign Vital Signs Vital Signs Date Time Temp Pulse Resp B/P (MAP) Pulse Ox O2 Delivery O2 Flow Rate FiO2 08/26/18 10:58 98.0 89 18 111/59 (76) 99 Room Air 98.0 Physical Exam PHYSICAL EXAM GENERAL: Propped up in bed, alert, cachetic, smiling HEENT: Oral cavity moist NECK: No JVD LUNGS: Decreased breath sounds at the bases. HEART: S1, S2, regular ABDOMEN: Nondistended, soft, BS present EXTREMITIES: 1+ edema BLE, DERMATOLOGIC: Warm, dry, no generalized rash NEUROLOGY: Alert, responds appropriately LUE-PICC clean Labs Lab Laboratory Tests Test 08/25/18 11:38 08/25/18 18:00 08/25/18 18:27 08/25/18 21:54 Glucose (Fingerstick) 106 mg/dL (70-99) 124 mg/dL (70-99) 115 mg/dL (70-99) Stool Occult Blood Positive (NEG) Test 08/26/18 06:30 08/26/18 06:47 Sodium Level 136 mmol/L (136-145) Potassium Level 3.8 mmol/L (3.5-5.1) Chloride Level 102 mmol/L (98-107) Carbon Dioxide Level 27 mmol/L (21-32) Anion Gap 7 (6-14) Blood Urea Nitrogen 17 mg/dL (7-20) Creatinine 0.3 mg/dL (0.6-1.0) Estimated GFR (Cockcroft-Gault) 218.7 Glucose Level 110 mg/dL (70-99) Calcium Level 8.0 mg/dL (8.5-10.1) Phosphorus Level 2.9 mg/dL (2.6-4.7) Magnesium Level 1.9 mg/dL (1.8-2.4) Iron Level 36 ug/dL (50-170) Total Iron Binding Capacity 205 ug/dL (250-450) Iron Saturation 18 % (15-34) Glucose (Fingerstick) 92 mg/dL (70-99) Micro Objective Assessment Cavitary mass in 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 New lesions on CT 08/24 Multiple cavitary nodules in the lung. AFB cultures negative in 03/2018. SVT - last pm Ongoing subjective weight loss, failure to thrive, nausea, vomiting, weakness, cachexia. Recurrent small bowel obstruction. Abnormal CT with questionable pneumoperitoneum.- better Protein-calorie malnutrition. History of rectal cancer, last colonoscopy 03/2014. History of irritable bowel syndrome. Bandemia/leukopenia - better, now leukopenia Mild increase in LFTS - likely TPN Transaminitis - better Plan Plan of Care Continue Merrem (since 08/17) Probiotics Bronch on Tuesday CBC in am Supportive care D/w Attending Co-Sign The patient was seen and interviewed as well as examined at the bedside. The chart was reviewed. The case was discussed. Agree with the plan of care. VINOD ACUÑA APRN Aug 26, 2018 11:28 KADY OSORIO MD Aug 26, 2018 13:23
--- NOTE | 2018-08-26 12:39 | PDOC ---
PROGRESS NOTES Subjective Her f/u lung imaging showed new pneumonia and she is to have a bronch on Tuesday, her brought her food this am and she was able to eat it, she has a PICC and is getting TPN, she has apparently been accepted at LT[facility] Objective Afebrile General: Alert, up in chair, she states her voice is stronger today Heart: tachy with activity but NSR otherwise Lungs: diminished, thin chest wall Abd: soft and non tender Ext: no C/C/E Vital Signs Vital Signs Date Time Temp Pulse Resp B/P (MAP) Pulse Ox O2 Delivery O2 Flow Rate FiO2 08/26/18 10:58 98.0 89 18 111/59 (76) 99 Room Air 98.0 I & O Intake and Output 08/26/18 07:00 Intake Total 50 ml Output Total 1525 ml Balance -1475 ml Intake Oral 50 ml Output Urine Total 1525 ml # Bowel Movements 11 Assessment and Plan Assessment 1. Functional Small-bowel obstruction 2. Severe protein malnutrition. 3. Leukopenia. 4. Hyponatremia- resolved 5. Hypomagnesemia. 6. Hypokalemia- replacing 7. 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 Pt on Meropenem currently 8. SVT with activity due to deconditioning Plan Pulmonary planning bronchoscopy on Tuesday for evaluation of lung abscesses pneumonia. Continue TPN planned for 4-6 weeks of treatment. Increase activity [facility]. Continue IV antibiotics. Increase activity with PT and OT. Nutrition Consultation Dietary Evaluation: Recommendations by RD: Increase Calorie Intake, Protein supplementation, PPN/TPN Comments: Continue w/TPN per current order for nutrition needs REC Vit C 500 mg BID, MVI q day for wound healing as able Advance diet as able to regular, note multiple food intolerances Expected Outcomes/Goals: to meet > 75% est nutr needs via TPN - met, goal ongoing Interpretation of weight loss: >10% in 6 months Malnutrition Findings: Muscle Mass (Severe): Severe Depletion Weight Status: Underweight Terrell SMALL MD Aug 26, 2018 12:39
[2018-08-26 15:00] VITALS: BP 117/61
--- NOTE | 2018-08-26 15:22 | PDOC ---
SURGICAL PROGRESS NOTE Subjective having stools tolerating diet no pain or bloating Vital Signs Vital Signs Date Time Temp Pulse Resp B/P (MAP) Pulse Ox O2 Delivery O2 Flow Rate FiO2 08/26/18 15:00 98.1 99 18 117/61 (79) 96 Room Air 98.1 I&O Intake and Output 08/26/18 07:00 Intake Total 50 ml Output Total 1525 ml Balance -1475 ml Intake Oral 50 ml Output Urine Total 1525 ml # Bowel Movements 11 General: Alert, Oriented X3, Cooperative, No acute distress Abdomen: Soft, No tenderness Labs Laboratory Tests Test 08/24/18 18:08 08/25/18 00:00 08/25/18 04:30 08/25/18 07:02 Glucose (Fingerstick) 111 mg/dL (70-99) 131 mg/dL (70-99) 101 mg/dL (70-99) Sodium Level 137 mmol/L (136-145) Potassium Level 3.9 mmol/L (3.5-5.1) Chloride Level 102 mmol/L (98-107) Carbon Dioxide Level 28 mmol/L (21-32) Anion Gap 7 (6-14) Blood Urea Nitrogen 15 mg/dL (7-20) Creatinine 0.3 mg/dL (0.6-1.0) Estimated GFR (Cockcroft-Gault) 218.7 Glucose Level 102 mg/dL (70-99) Calcium Level 8.1 mg/dL (8.5-10.1) Phosphorus Level 2.9 mg/dL (2.6-4.7) Magnesium Level 1.8 mg/dL (1.8-2.4) Total Bilirubin 0.2 mg/dL (0.2-1.0) Direct Bilirubin 0.1 mg/dL (0.0-0.2) Aspartate Amino Transf (AST/SGOT) 103 U/L (15-37) Alanine Aminotransferase (ALT/SGPT) 130 U/L (14-59) Alkaline Phosphatase 200 U/L (46-116) Total Protein 4.6 g/dL (6.4-8.2) Albumin 1.7 g/dL (3.4-5.0) Test 08/25/18 11:38 08/25/18 18:00 08/25/18 18:27 08/25/18 21:54 Glucose (Fingerstick) 106 mg/dL (70-99) 124 mg/dL (70-99) 115 mg/dL (70-99) Stool Occult Blood Positive (NEG) Test 08/26/18 06:30 08/26/18 06:47 08/26/18 12:00 Sodium Level 136 mmol/L (136-145) Potassium Level 3.8 mmol/L (3.5-5.1) Chloride Level 102 mmol/L (98-107) Carbon Dioxide Level 27 mmol/L (21-32) Anion Gap 7 (6-14) Blood Urea Nitrogen 17 mg/dL (7-20) Creatinine 0.3 mg/dL (0.6-1.0) Estimated GFR (Cockcroft-Gault) 218.7 Glucose Level 110 mg/dL (70-99) Calcium Level 8.0 mg/dL (8.5-10.1) Phosphorus Level 2.9 mg/dL (2.6-4.7) Magnesium Level 1.9 mg/dL (1.8-2.4) Iron Level 36 ug/dL (50-170) Total Iron Binding Capacity 205 ug/dL (250-450) Iron Saturation 18 % (15-34) Glucose (Fingerstick) 92 mg/dL (70-99) 117 mg/dL (70-99) Laboratory Tests Test 08/25/18 18:00 08/25/18 18:27 08/25/18 21:54 08/26/18 06:30 Stool Occult Blood Positive (NEG) Glucose (Fingerstick) 124 mg/dL (70-99) 115 mg/dL (70-99) Sodium Level 136 mmol/L (136-145) Potassium Level 3.8 mmol/L (3.5-5.1) Chloride Level 102 mmol/L (98-107) Carbon Dioxide Level 27 mmol/L (21-32) Anion Gap 7 (6-14) Blood Urea Nitrogen 17 mg/dL (7-20) Creatinine 0.3 mg/dL (0.6-1.0) Estimated GFR (Cockcroft-Gault) 218.7 Glucose Level 110 mg/dL (70-99) Calcium Level 8.0 mg/dL (8.5-10.1) Phosphorus Level 2.9 mg/dL (2.6-4.7) Magnesium Level 1.9 mg/dL (1.8-2.4) Iron Level 36 ug/dL (50-170) Total Iron Binding Capacity 205 ug/dL (250-450) Iron Saturation 18 % (15-34) Test 08/26/18 06:47 08/26/18 12:00 Glucose (Fingerstick) 92 mg/dL (70-99) 117 mg/dL (70-99) Problem List Problems Medical Problems: (1) Pneumoperitoneum Status: Acute Assessment/Plan improved diet as tolerated will sign off, call with questions AMARILIS ABDI APRN Aug 26, 2018 15:22
[2018-08-26 19:29] VITALS: BP 110/53
[2018-08-26] MEDS: LACTOBACILLUS RHAMNOSUS GG 1 CAPSULE. PO SCH (21:35)
[2018-08-26] MEDS: FAMOTIDINE 20 MG TABLET. PO SCH (21:35)
[2018-08-26] MEDS ORDERED: AMINO ACID IV SCH ×10 (22:00)
[2018-08-26] MEDS ORDERED: [UNRECOGNIZED DRUG - OTHER] IV SCH ×10 (22:00)
[2018-08-26] MEDS ORDERED: TOTAL PARENTERAL NUTRITION IV SCH ×10 (22:00)
[2018-08-26] MEDS ORDERED: DEXTROSE 70% IV SCH ×10 (22:00)
[2018-08-26 23:16] VITALS: BP 102/57
[2018-08-27 02:51] VITALS: BP 115/61
[2018-08-27] MEDS: MEROPENEM 500 MG in IV NORMAL SALINE 50ML 50 ML IV SCH ×3 (05:19→21:16)
[2018-08-27 06:00] LABS: BASO % 1 % (0-3); EOS % 1 % (0-3); HEMATOCRIT 21.4 % (36.0-47.0); HEMOGLOBIN 7.4 g/dL (12.0-15.5); LYMPH # 0.6 x10^3/uL (1.0-4.8); LYMPH % 14 % (24-48); MEAN CORPUSCULAR HEMOGLOBIN 31 pg (25-35); MEAN CORPUSCULAR HGB CONC 35 g/dL (31-37); MEAN CORPUSCULAR VOLUME 90 fL (79-100); MONO # 0.3 x10^3/uL (0.0-1.1); MONO % 8 % (0-9); NEUT # 3.2 x10^3uL (1.8-7.7); NEUT % 76 % (31-73); PLATELET COUNT 269 x10^3/uL (140-400); RED BLOOD COUNT 2.39 x10^6/uL (3.50-5.40); RED CELL DISTRIBUTION WIDTH 16.1 % (11.5-14.5); WHITE BLOOD COUNT 4.2 x10^3/uL (4.0-11.0)
[2018-08-27 07:05] VITALS: BP 100/56
--- NOTE | 2018-08-27 07:16 | PDOC ---
PULMONARY PROGRESS NOTES Subjective feels better, no pain, no sob, has occ cough Vitals Vital Signs Date Time Temp Pulse Resp B/P (MAP) Pulse Ox O2 Delivery O2 Flow Rate FiO2 08/27/18 02:51 97.9 89 18 115/61 (79) 98 Room Air 97.9 ROS: No Nausea, No Chest Pain, No Abdominal Pain, No Increase Cough General: Alert, No acute distress HEENT: Other (nc at perrl) Lungs: Crackles Cardiovascular: S1, S2 Abdomen: Soft, Non-tender Extremities: No Edema Labs Laboratory Tests Test 08/25/18 11:38 08/25/18 18:00 08/25/18 18:27 08/25/18 21:54 Glucose (Fingerstick) 106 mg/dL (70-99) 124 mg/dL (70-99) 115 mg/dL (70-99) Stool Occult Blood Positive (NEG) Test 08/26/18 06:30 08/26/18 06:47 08/26/18 12:00 08/26/18 18:14 Sodium Level 136 mmol/L (136-145) Potassium Level 3.8 mmol/L (3.5-5.1) Chloride Level 102 mmol/L (98-107) Carbon Dioxide Level 27 mmol/L (21-32) Anion Gap 7 (6-14) Blood Urea Nitrogen 17 mg/dL (7-20) Creatinine 0.3 mg/dL (0.6-1.0) Estimated GFR (Cockcroft-Gault) 218.7 Glucose Level 110 mg/dL (70-99) Calcium Level 8.0 mg/dL (8.5-10.1) Phosphorus Level 2.9 mg/dL (2.6-4.7) Magnesium Level 1.9 mg/dL (1.8-2.4) Iron Level 36 ug/dL (50-170) Total Iron Binding Capacity 205 ug/dL (250-450) Iron Saturation 18 % (15-34) Glucose (Fingerstick) 92 mg/dL (70-99) 117 mg/dL (70-99) 112 mg/dL (70-99) Test 08/26/18 21:49 08/27/18 05:23 08/27/18 05:35 Glucose (Fingerstick) 116 mg/dL (70-99) 102 mg/dL (70-99) White Blood Count 4.2 x10^3/uL (4.0-11.0) Red Blood Count 2.39 x10^6/uL (3.50-5.40) Hemoglobin 7.4 g/dL (12.0-15.5) Hematocrit 21.4 % (36.0-47.0) Mean Corpuscular Volume 90 fL (79-100) Mean Corpuscular Hemoglobin 31 pg (25-35) Mean Corpuscular Hemoglobin Concent 35 g/dL (31-37) Red Cell Distribution Width 16.1 % (11.5-14.5) Platelet Count 269 x10^3/uL (140-400) Neutrophils (%) (Auto) 76 % (31-73) Lymphocytes (%) (Auto) 14 % (24-48) Monocytes (%) (Auto) 8 % (0-9) Eosinophils (%) (Auto) 1 % (0-3) Basophils (%) (Auto) 1 % (0-3) Neutrophils # (Auto) 3.2 x10^3uL (1.8-7.7) Lymphocytes # (Auto) 0.6 x10^3/uL (1.0-4.8) Monocytes # (Auto) 0.3 x10^3/uL (0.0-1.1) Eosinophils # (Auto) 0.0 x10^3/uL (0.0-0.7) Basophils # (Auto) 0.0 x10^3/uL (0.0-0.2) Laboratory Tests Test 08/26/18 12:00 08/26/18 18:14 08/26/18 21:49 08/27/18 05:23 Glucose (Fingerstick) 117 mg/dL (70-99) 112 mg/dL (70-99) 116 mg/dL (70-99) 102 mg/dL (70-99) Test 08/27/18 05:35 White Blood Count 4.2 x10^3/uL (4.0-11.0) Red Blood Count 2.39 x10^6/uL (3.50-5.40) Hemoglobin 7.4 g/dL (12.0-15.5) Hematocrit 21.4 % (36.0-47.0) Mean Corpuscular Volume 90 fL (79-100) Mean Corpuscular Hemoglobin 31 pg (25-35) Mean Corpuscular Hemoglobin Concent 35 g/dL (31-37) Red Cell Distribution Width 16.1 % (11.5-14.5) Platelet Count 269 x10^3/uL (140-400) Neutrophils (%) (Auto) 76 % (31-73) Lymphocytes (%) (Auto) 14 % (24-48) Monocytes (%) (Auto) 8 % (0-9) Eosinophils (%) (Auto) 1 % (0-3) Basophils (%) (Auto) 1 % (0-3) Neutrophils # (Auto) 3.2 x10^3uL (1.8-7.7) Lymphocytes # (Auto) 0.6 x10^3/uL (1.0-4.8) Monocytes # (Auto) 0.3 x10^3/uL (0.0-1.1) Eosinophils # (Auto) 0.0 x10^3/uL (0.0-0.7) Basophils # (Auto) 0.0 x10^3/uL (0.0-0.2) Medications Active Scripts Medications Dose Route/Sig Max Daily Dose Days Date Category Avelox (Moxifloxacin Hcl) 400 Mg Tablet 1 Tab PO DAILY 05/17/18 Rx Diphenoxylate-Atropine Tablet (Diphenoxylate Hcl/Atropine) 1 Each Tablet 1 Tab PO PRN QID PRN 30 04/21/18 Rx Famotidine 20 Mg Tablet 20 Mg PO QHS 60 04/19/18 Rx Aspirin Ec (Aspirin) 81 Mg Tablet.dr 81 Mg PO DAILYWBKFT 30 04/19/18 Rx Toprol Xl (Metoprolol Succinate) 50 Mg Tab.er.24h 50 Mg PO HS 30 04/19/18 Rx Hydrocodone-Apap 5-325 (Hydrocodone Bit/Acetaminophen) 1 Tab Tablet 1 Tab PO PRN Q4HRS PRN 03/09/18 Rx Multivitamins (Multivitamin) 1 Each Tablet 1 Each PO DAILY 03/07/18 Reported Vitamin D3 (Cholecalciferol (Vitamin D3)) 1,000 Unit Tablet 1,000 Unit PO DAILY 03/07/[address] reviewed 1. The previously seen right lower lobe cavitary lesion is again identified, with an increased gas and diminished fluid component since prior study. 2. Increased cavitation in the separate lesion in the superior segment of the right lower lobe. 3. Multiple new small cavitary nodules are now identified in both lungs. This does raise the question of septic emboli, versus scattered infectious foci or metastases. Impression . 1. Abnormal CT chest with a cavitary mass in the right chest, likely abscess. This is considerably reduced in size compared to the 03/2018 CT. D/W RADIOLOGY. Location of recent right lung abscess slightly inferior to previous one and as such new abscess. There is new pneumonia in RUL and tiny thin cavitary nodules in left lung. She likely has ongoing / recurrent aspiration form bowel obstruction contributing to recurrent lung abscess. 2. MALNUTRITION 3. No significant history of tobacco use. 4. Coffee ground NG aspirate 5. Pneumoperitonium 6. RECURRENT SBO, ? aspiration Bronch cultures from Mar 2018 BRONCH CULTURE Final Final report BRONCH RES 1 Final Citrobacter freundii 4+ ANTIMICROBIAL SUSCEPTIBILITY Final Comment S = Susceptible; I = Intermediate; R = Resistant P = Positive; N = Negative MICS are expressed in micrograms per mL Antibiotic RSLT#1 RSLT#2 RSLT#3 RSLT#4 Amoxicillin/Clavulanic Acid R>=32 Cefazolin R>=64 Cefepime S<=0.12 Ceftriaxone R>=64 Cefuroxime R>=64 Ciprofloxacin S<=0.25 Gentamicin S<=1 Imipenem S<=0.25 Levofloxacin S<=0.12 Meropenem S<=0.25 Nitrofurantoin S<=16 Tetracycline S<=1 Tobramycin S<=1 Trimethoprim/Sulfa S<=20 Performed at: DA - [facility] [address], [place], [place] [id number] Campaign Management Senior Manager: KAILASH Zarate MD, Phone: [phone] Plan . CT REVIEWED BRONCH ON TUESDAY, the procedure, risks and benefits discussed, npo after midnight elevate hob, aspiration precaution ANTI BX PER ID PT EVAL AND TREAT, increase activity NUTRITIONAL SUPPORT discussed w rn, pt RO BURCIAGA MD Aug 27, 2018 07:16
[2018-08-27] MEDS: CHOLECALCIFEROL (VITAMIN D3) 1,000 UNIT TABLET PO SCH (08:06)
[2018-08-27] MEDS: METOPROLOL TART IMMED RELEASE 25 MG TABLET. PO SCH ×2 (08:07→21:15)
[2018-08-27] MEDS: LACTOBACILLUS RHAMNOSUS GG 1 CAPSULE. PO SCH ×2 (08:07→21:15)
[2018-08-27] MEDS: VITS A & D/LANOLIN TOPICAL OINTMENT 56GM TUBE. TP SCH ×4 (08:08→21:16)
--- NOTE | 2018-08-27 09:00 | PDOC ---
Infectious Disease Note Subjective Subjective Comfortable, Diarrhea slowly down Denies N/V/pain Tolerating full liquids No F/C/S TPN ROS ROS per HPI Vital Sign Vital Signs Vital Signs Date Time Temp Pulse Resp B/P (MAP) Pulse Ox O2 Delivery O2 Flow Rate FiO2 08/27/18 08:07 96 100/56 08/27/18 07:30 Room Air 08/27/18 07:05 98.1 14 99 98.1 Physical Exam PHYSICAL EXAM GENERAL: Propped up in bed, alert, cachetic, pale HEENT: Oral cavity clear, moist NECK: Supple LUNGS: Decreased breath sounds at the bases. HEART: S1, S2, regular ABDOMEN: Nondistended, soft, BS present EXTREMITIES: 1+ edema BLE, DERMATOLOGIC: Warm, dry, no generalized rash NEUROLOGY: Alert, responds appropriately LUE-PICC clean Labs Lab Laboratory Tests Test 08/26/18 12:00 08/26/18 18:14 08/26/18 21:49 08/27/18 05:23 Glucose (Fingerstick) 117 mg/dL (70-99) 112 mg/dL (70-99) 116 mg/dL (70-99) 102 mg/dL (70-99) Test 08/27/18 05:35 White Blood Count 4.2 x10^3/uL (4.0-11.0) Red Blood Count 2.39 x10^6/uL (3.50-5.40) Hemoglobin 7.4 g/dL (12.0-15.5) Hematocrit 21.4 % (36.0-47.0) Mean Corpuscular Volume 90 fL (79-100) Mean Corpuscular Hemoglobin 31 pg (25-35) Mean Corpuscular Hemoglobin Concent 35 g/dL (31-37) Red Cell Distribution Width 16.1 % (11.5-14.5) Platelet Count 269 x10^3/uL (140-400) Neutrophils (%) (Auto) 76 % (31-73) Lymphocytes (%) (Auto) 14 % (24-48) Monocytes (%) (Auto) 8 % (0-9) Eosinophils (%) (Auto) 1 % (0-3) Basophils (%) (Auto) 1 % (0-3) Neutrophils # (Auto) 3.2 x10^3uL (1.8-7.7) Lymphocytes # (Auto) 0.6 x10^3/uL (1.0-4.8) Monocytes # (Auto) 0.3 x10^3/uL (0.0-1.1) Eosinophils # (Auto) 0.0 x10^3/uL (0.0-0.7) Basophils # (Auto) 0.0 x10^3/uL (0.0-0.2) Micro Objective Assessment Cavitary mass in 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 New lesions on CT 08/24 Multiple cavitary nodules in the lung. AFB cultures negative in 03/2018. h/o SVT Ongoing subjective weight loss, failure to thrive, nausea, vomiting, weakness, cachexia. Recurrent small bowel obstruction. Abnormal CT with questionable pneumoperitoneum.- better Protein-calorie malnutrition. History of rectal cancer, last colonoscopy 03/2014. History of irritable bowel syndrome. Bandemia/leukopenia - improved Mild increase in LFTS - likely TPN Anemia Plan Plan of Care Continue Merrem (since 08/17) Probiotics Bronch on Tuesday Supportive care D/w nursing Attending Co-Sign The patient was seen and interviewed as well as examined at the bedside. The chart was reviewed. The case was discussed. Agree with the plan of care. VINOD ACUÑA APRN Aug 27, 2018 09:00 KADY OSORIO MD Aug 27, 2018 13:57
[2018-08-27 11:05] VITALS: BP 105/65
[2018-08-27] MEDS: TPN PER PHARMACY MC PRN (12:44)
--- NOTE | 2018-08-27 12:45 | PDOC ---
PROGRESS NOTES Subjective She says she is feeling stronger, just had a shower and now resting. she says she is having diarrhea but nurse states that is not correct and that she has some confusion Objective Afebrile General: alert, conversant Heart: irreg Lungs: diminished Abd: soft Ext: no edema Vital Signs Vital Signs Date Time Temp Pulse Resp B/P (MAP) Pulse Ox O2 Delivery O2 Flow Rate FiO2 08/27/18 11:05 97.5 76 16 105/65 (78) 100 Room Air 97.5 I & O Intake and Output 08/27/18 07:00 Intake Total 50 ml Output Total 1950 ml Balance -1900 ml Intake Oral 50 ml Output Urine Total 1950 ml # Voids 2 # Bowel Movements 1 Assessment and Plan Assessment / Plan: 1. Functional small-bowel obstruction - improved - surgery signed off today 2. Severe protein malnutrition - continue TPN via PICC 3. Leukopenia - likely from malnutrition. 4. Hyponatremia- resolved 5. Hypomagnesemia. 6. Hypokalemia- replacing 7. Pulm abscesses from aspiration - bronchoscopy tomorrow. Pt on Meropenem currently 8. SVT with activity due to deconditioning 9. deconditioning - she has been accepted at LT[facility] Nutrition Consultation Dietary Evaluation: Recommendations by RD: Increase Calorie Intake, Protein supplementation, PPN/TPN Comments: Continue w/TPN per current order for nutrition needs REC Vit C 500 mg BID, MVI q day for wound healing as able Advance diet as able to regular, note multiple food intolerances Expected Outcomes/Goals: to meet > 75% est nutr needs via TPN - met, goal ongoing Interpretation of weight loss: >10% in 6 months Malnutrition Findings: Muscle Mass (Severe): Severe Depletion Weight Status: Underweight Terrell SMALL MD Aug 27, 2018 12:45
--- NOTE | 2018-08-27 12:51 | NUR ---
Pharmacy TPN Dosing Note S: CHELSIE PINEDA is a 73 year old F Currently receiving Central Continuous TPN started 08/18/18 B:Pertinent PMH: SBO Height: 5 feet, 3 inches Weight: 41.177840 kg Current diet: gi soft LABS: Sodium: 136 Potassium: 3.8 Chloride: 102 Calcium: 8.0 Corrected Calcium: 9.84 Magnesium: 1.9 CO2: 27 SCr: 0.3 Glucose: 110 Albumin: 1.7 AST: 58 ALT: 93 TPN FORMULA: TPN TYPE: Central Continuous AMINO ACIDS: 60 gm DEXTROSE: 195 gm LIPIDS: 20 gm SODIUM CHLORIDE: 90 mEq SODIUM ACETATE: mEq SODIUM PHOSPHATE: 15 mmol POTASSIUM CHLORIDE: 35 mEq POTASSIUM ACETATE: mEq POTASSIUM PHOSPHATE: 25 mmol MAGNESIUM: 18 mEq CALCIUM: - mEq INSULIN: units MULTIPLE VITAMIN: 10 ml TRACE ELEMENTS: 1 ml(s) TPN PLAN: Continue same formula today. R: Continue TPN as ordered Will monitor electrolytes, glucose, and tolerance to TPN. CINDY SCOTT, [facility], 08/27/18 [id number]
[2018-08-27 15:05] VITALS: BP 106/54
[2018-08-27 19:30] VITALS: BP 117/61
[2018-08-27] MEDS: FAMOTIDINE 20 MG TABLET. PO SCH (21:15)
[2018-08-27] MEDS ORDERED: TOTAL PARENTERAL NUTRITION IV SCH ×10 (22:00)
[2018-08-27] MEDS ORDERED: DEXTROSE 70% IV SCH ×10 (22:00)
[2018-08-27] MEDS ORDERED: AMINO ACID IV SCH ×10 (22:00)
[2018-08-27] MEDS ORDERED: [UNRECOGNIZED DRUG - OTHER] IV SCH ×10 (22:00)
[2018-08-27 23:36] VITALS: BP 113/59
[2018-08-28] VITALS (11 sets, daily range): BP systolic 95–177; BP diastolic 52–91
[2018-08-28] MEDS: MEROPENEM 500 MG in IV NORMAL SALINE 50ML 50 ML IV SCH ×3 (05:21→21:28)
[2018-08-28 06:09] LABS: CALCIUM 7.9 mg/dL (8.5-10.1); CREATININE 0.3 mg/dL (0.6-1.0); GFR 218.7; PHOSPHORUS 3.3 mg/dL (2.6-4.7); POTASSIUM 3.9 mmol/L (3.5-5.1)
--- NOTE | 2018-08-28 08:16 | PDOC ---
Infectious Disease Note Subjective Subjective feeling good, no complaints ROS ROS no n/v/d/ Vital Sign Vital Signs Vital Signs Date Time Temp Pulse Resp B/P (MAP) Pulse Ox O2 Delivery O2 Flow Rate FiO2 08/28/18 07:09 97.4 89 16 112/53 (72) 99 Room Air 97.4 Physical Exam PHYSICAL EXAM GENERAL: Propped up in bed, alert, cachetic, pale HEENT: Oral cavity clear, moist NECK: Supple LUNGS: Decreased breath sounds at the bases. HEART: S1, S2, regular ABDOMEN: Nondistended, soft, BS present EXTREMITIES: 1+ edema BLE, DERMATOLOGIC: Warm, dry, no generalized rash NEUROLOGY: Alert, responds appropriately LUE-PICC clean Labs Lab Laboratory Tests Test 08/27/18 14:10 08/27/18 17:52 08/27/18 23:05 08/28/18 05:33 Glucose (Fingerstick) 129 mg/dL (70-99) 113 mg/dL (70-99) 101 mg/dL (70-99) 97 mg/dL (70-99) Test 08/28/18 05:45 Sodium Level 135 mmol/L (136-145) Potassium Level 3.9 mmol/L (3.5-5.1) Chloride Level 103 mmol/L (98-107) Carbon Dioxide Level 27 mmol/L (21-32) Anion Gap 5 (6-14) Blood Urea Nitrogen 17 mg/dL (7-20) Creatinine 0.3 mg/dL (0.6-1.0) Estimated GFR (Cockcroft-Gault) 218.7 Glucose Level 100 mg/dL (70-99) Calcium Level 7.9 mg/dL (8.5-10.1) Phosphorus Level 3.3 mg/dL (2.6-4.7) Magnesium Level 2.0 mg/dL (1.8-2.4) Micro Microbiology 08/18/18 Blood Culture - Final, Complete NO GROWTH AFTER 5 DAYS Objective Assessment Cavitary mass in 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 New lesions on CT 08/24 Multiple cavitary nodules in the lung. AFB cultures negative in 03/2018. h/o SVT Ongoing subjective weight loss, failure to thrive, nausea, vomiting, weakness, cachexia. Recurrent small bowel obstruction. Abnormal CT with questionable pneumoperitoneum.- better Protein-calorie malnutrition. History of rectal cancer, last colonoscopy 03/2014. History of irritable bowel syndrome. Bandemia/leukopenia - improved Mild increase in LFTS - likely TPN Anemia Plan Plan of Care Continue Merrem (since 08/17) Probiotics Bronch today Supportive care D/w nursing KADY OSORIO MD Aug 28, 2018 08:16
[2018-08-28] MEDS: CHOLECALCIFEROL (VITAMIN D3) 1,000 UNIT TABLET PO SCH (09:00)
[2018-08-28] MEDS: LACTOBACILLUS RHAMNOSUS GG 1 CAPSULE. PO SCH ×2 (09:00→21:27)
--- NOTE | 2018-08-28 09:18 | PDOC ---
PROGRESS NOTES Subjective Subjective No new complaints. Objective Objective Vital Signs Date Time Temp Pulse Resp B/P (MAP) Pulse Ox O2 Delivery O2 Flow Rate FiO2 08/28/18 08:00 Room Air 08/28/18 07:09 97.4 89 16 112/53 (72) 99 97.4 Intake and Output 08/28/18 06:59 Intake Total 750 ml Output Total 2550 ml Balance -1800 ml Intake Oral 700 ml IV Total 50 ml Output Urine Total 2550 ml # Bowel Movements 1 Physical Exam Physical Exam She is alert and comfortable lying on her right side and she is getting up with therapy. Her physical endurance remains low. Assessment Assessment Problems Medical Problems: (1) Pneumoperitoneum Status: Acute Plan Plan of Care To continue present rehab efforts as she can tolerate. Comment Review of Relevant I have reviewed the following items jackie (where applicable) has been applied. Labs Laboratory Tests Test 08/26/18 12:00 08/26/18 18:14 08/26/18 21:49 08/27/18 05:23 Glucose (Fingerstick) 117 mg/dL (70-99) 112 mg/dL (70-99) 116 mg/dL (70-99) 102 mg/dL (70-99) Test 08/27/18 05:35 08/27/18 14:10 08/27/18 17:52 08/27/18 23:05 White Blood Count 4.2 x10^3/uL (4.0-11.0) Red Blood Count 2.39 x10^6/uL (3.50-5.40) Hemoglobin 7.4 g/dL (12.0-15.5) Hematocrit 21.4 % (36.0-47.0) Mean Corpuscular Volume 90 fL (79-100) Mean Corpuscular Hemoglobin 31 pg (25-35) Mean Corpuscular Hemoglobin Concent 35 g/dL (31-37) Red Cell Distribution Width 16.1 % (11.5-14.5) Platelet Count 269 x10^3/uL (140-400) Neutrophils (%) (Auto) 76 % (31-73) Lymphocytes (%) (Auto) 14 % (24-48) Monocytes (%) (Auto) 8 % (0-9) Eosinophils (%) (Auto) 1 % (0-3) Basophils (%) (Auto) 1 % (0-3) Neutrophils # (Auto) 3.2 x10^3uL (1.8-7.7) Lymphocytes # (Auto) 0.6 x10^3/uL (1.0-4.8) Monocytes # (Auto) 0.3 x10^3/uL (0.0-1.1) Eosinophils # (Auto) 0.0 x10^3/uL (0.0-0.7) Basophils # (Auto) 0.0 x10^3/uL (0.0-0.2) Glucose (Fingerstick) 129 mg/dL (70-99) 113 mg/dL (70-99) 101 mg/dL (70-99) Test 08/28/18 05:33 08/28/18 05:45 Glucose (Fingerstick) 97 mg/dL (70-99) Sodium Level 135 mmol/L (136-145) Potassium Level 3.9 mmol/L (3.5-5.1) Chloride Level 103 mmol/L (98-107) Carbon Dioxide Level 27 mmol/L (21-32) Anion Gap 5 (6-14) Blood Urea Nitrogen 17 mg/dL (7-20) Creatinine 0.3 mg/dL (0.6-1.0) Estimated GFR (Cockcroft-Gault) 218.7 Glucose Level 100 mg/dL (70-99) Calcium Level 7.9 mg/dL (8.5-10.1) Phosphorus Level 3.3 mg/dL (2.6-4.7) Magnesium Level 2.0 mg/dL (1.8-2.4) Laboratory Tests Test 08/27/18 14:10 08/27/18 17:52 08/27/18 23:05 08/28/18 05:33 Glucose (Fingerstick) 129 mg/dL (70-99) 113 mg/dL (70-99) 101 mg/dL (70-99) 97 mg/dL (70-99) Test 08/28/18 05:45 Sodium Level 135 mmol/L (136-145) Potassium Level 3.9 mmol/L (3.5-5.1) Chloride Level 103 mmol/L (98-107) Carbon Dioxide Level 27 mmol/L (21-32) Anion Gap 5 (6-14) Blood Urea Nitrogen 17 mg/dL (7-20) Creatinine 0.3 mg/dL (0.6-1.0) Estimated GFR (Cockcroft-Gault) 218.7 Glucose Level 100 mg/dL (70-99) Calcium Level 7.9 mg/dL (8.5-10.1) Phosphorus Level 3.3 mg/dL (2.6-4.7) Magnesium Level 2.0 mg/dL (1.8-2.4) Microbiology 08/18/18 Blood Culture - Final, Complete NO GROWTH AFTER 5 DAYS Medications Current Medications Sodium Chloride 1,000 ml @ 100 mls/hr Q10H IV Last administered on 08/17/18at 06:55; Start 08/17/18 at 06:30; Stop 08/17/18 at 16:29; Status DC Ondansetron HCl (Zofran) 4 mg 1X ONCE IV Last administered on 08/17/18at 06:55; Start 08/17/18 at 06:30; Stop 08/17/18 at 06:31; Status DC Iohexol (Omnipaque 240 Mg/ml) 30 ml 1X ONCE PO Last administered on 08/17/18at 07:15; Start 08/17/18 at 07:15; Stop 08/17/18 at 07:16; Status DC Iohexol (Omnipaque 300 Mg/ml) 75 ml 1X ONCE IV Last administered on 08/17/18at 08:11; Start 08/17/18 at 07:15; Stop 08/17/18 at 07:16; Status DC Info (CONTRAST GIVEN -- Rx MONITORING) 1 each PRN DAILY PRN MC SEE COMMENTS; Start 08/17/18 at 07:15; Stop 08/19/18 at 07:14; Status DC Sodium Chloride 1,000 ml @ 1,000 mls/hr 1X ONCE IV Last administered on 08/17/18at 07:45; Start 08/17/18 at 07:45; Stop 08/17/18 at 08:44; Status DC Magnesium Sulfate/ Dextrose 100 ml @ 100 mls/hr 1X ONCE IV Last administered on 08/17/18at 14:55; Start 08/17/18 at 07:45; Stop 08/17/18 at 08:44; Status DC Potassium Chloride/Water 100 ml @ 100 mls/hr Q1H IV Last administered on 08/17/18at 09:23; Start 08/17/18 at 07:45; Stop 08/17/18 at 09:44; Status DC Ertapenem 50 ml @ 100 mls/hr 1X ONCE IV ; Start 08/17/18 at 09:15; Stop 08/17/18 at 09:44; Status UNV Meropenem 500 mg/ Sodium Chloride 50 ml @ 100 mls/hr 1X ONCE IV Last administered on 08/17/18at 10:53; Start 08/17/18 at 09:30; Stop 08/17/18 at 09:59; Status DC Ondansetron HCl (Zofran) 4 mg PRN Q8HRS PRN IV NAUSEA/VOMITING; Start 08/17/18 at 10:00; Stop 08/18/18 at 09:59; Status DC Morphine Sulfate (Morphine Sulfate) 4 mg PRN Q2HR PRN IV PAIN; Start 08/17/18 at 10:00; Stop 08/18/18 at 09:59; Status DC Meropenem 500 mg/ Sodium Chloride 50 ml @ 100 mls/hr Q8HRS IV Last administered on 08/28/18at 05:21; Start 08/17/18 at 14:00 Amino Acids/ Glycerin/ Electrolytes 1,000 ml @ 80 mls/hr [id number] IV Last administered on 08/17/18at 20:57; Start 08/17/18 at 20:15; Stop 08/19/18 at 10:57; Status DC Potassium Chloride/Sodium Chloride 1,000 ml @ 75 mls/hr 1X ONCE IV Last administered on 08/18/18at 11:26; Start 08/18/18 at 07:45; Stop 08/18/18 at 21:04; Status DC Magnesium Sulfate 50 ml @ 25 mls/hr 1X ONCE IV Last administered on 08/18/18at 13:50; Start 08/18/18 at 09:00; Stop 08/18/18 at 10:59; Status DC Famotidine (Pepcid Vial) 20 mg QHS IVP Last administered on 08/22/18at 21:27; Start 08/18/18 at 21:00; Stop 08/23/18 at 09:15; Status DC Info (Tpn Per Pharmacy) 1 each PRN DAILY PRN MC SEE COMMENTS Last administered on 08/27/18at 12:44; Start 08/18/18 at 13:15 Sodium Chloride 90 meq/Potassium Chloride 50 meq/ Potassium Phosphate 13.6 mmol/Magnesium Sulfate 10 meq/ Calcium Gluconate 10 meq/ Multivitamins 10 ml/Chromium/ Copper/Manganese/ Seleni/Zn 1 ml/ Total Parenteral Nutrition/Amino Acids/Dextrose/ Fat Emulsion Intravenous 1,512 ml @ 63 mls/hr TPN CONT IV Last administered on 08/19/18at 03:19; Start 08/18/18 at 22:00; Stop 08/19/18 at 21:59; Status DC Potassium Phosphate 10 mmol/ Dextrose 103.3333 ml @ 51.667 m... Q2H IV Last administered on 08/19/18at 12:06; Start 08/19/18 at 12:00; Stop 08/19/18 at 15:59; Status DC Calcium Gluconate 1000 mg/Dextrose 110 ml @ 220 mls/hr 1X ONCE IV Last administered on 08/19/18at 15:26; Start 08/19/18 at 15:00; Stop 08/19/18 at 15:29; Status DC Furosemide (Lasix) 20 mg 1X ONCE IVP Last administered on 08/19/18at 13:45; Start 08/19/18 at 13:15; Stop 08/19/18 at 13:16; Status DC Sodium Chloride 90 meq/Potassium Chloride 60 meq/ Potassium Phosphate 17 mmol/ Magnesium Sulfate 10 meq/Calcium Gluconate 15 meq/ Multivitamins 10 ml/Chromium/ Copper/Manganese/ Seleni/Zn 1 ml/ Total Parenteral Nutrition/Amino Acids/Dextrose/ Fat Emulsion Intravenous 1,512 ml @ 63 mls/hr TPN CONT IV Last administered on 08/19/18at 21:46; Start 08/19/18 at 22:00; Stop 08/20/18 at 21:59; Status DC Dextrose (Dextrose 50%-Water Syringe) 12.5 gm PRN Q15MIN PRN IV SEE COMMENTS; Start 08/20/18 at 06:30 Adenosine (Adenocard) 6 mg 1X ONCE IV Last administered on 08/20/18at 07:45; Start 08/20/18 at 10:00; Stop 08/20/18 at 10:08; Status DC Sodium Phosphate 30 mmol/Dextrose 260 ml @ 65 mls/hr 1X ONCE IV Last administered on 08/20/18at 13:04; Start 08/20/18 at 13:00; Stop 08/20/18 at 16:59; Status DC Sodium Chloride 90 meq/Potassium Chloride 60 meq/ Potassium Phosphate 25 mmol/ Magnesium Sulfate 10 meq/Calcium Gluconate 10 meq/ Multivitamins 10 ml/Chromium/ Copper/Manganese/ Seleni/Zn 1 ml/ Total Parenteral Nutrition/Amino Acids/Dextrose/ Fat Emulsion Intravenous 1,512 ml @ 63 mls/hr TPN CONT IV Last administered on 08/20/18at 20:32; Start 08/20/18 at 22:00; Stop 08/21/18 at 21:59; Status DC Bisacodyl (Dulcolax Supp) 10 mg 1X ONCE SD Last administered on 08/21/18at 11:14; Start 08/21/18 at 09:45; Stop 08/21/18 at 09:46; Status DC Potassium Phosphate 15 mmol/ Sodium Chloride 255 ml @ 127.5 mls/ hr 1X ONCE IV Last administered on 08/21/18at 16:48; Start 08/21/18 at 15:00; Stop 08/21/18 at 16:59; Status DC Sodium Chloride 90 meq/Potassium Chloride 60 meq/ Potassium Phosphate 25 mmol/ Magnesium Sulfate 13 meq/Calcium Gluconate 10 meq/ Multivitamins 10 ml/Chromium/ Copper/Manganese/ Seleni/Zn 1 ml/ Total Parenteral Nutrition/Amino Acids/Dextrose/ Fat Emulsion Intravenous 1,512 ml @ 63 mls/hr TPN CONT IV Last administered on 08/21/18at 22:03; Start 08/21/18 at 22:00; Stop 08/22/18 at 21:59; Status DC Metoprolol Tartrate (Lopressor Vial) 5 mg PRN Q6HRS PRN IVP TACHYCARDIA Last administered on 08/22/18at 17:23; Start 08/22/18 at 10:00 Sodium Phosphate 30 mmol/Dextrose 260 ml @ 65 mls/hr 1X ONCE IV Last administered on 08/22/18at 14:13; Start 08/22/18 at 11:00; Stop 08/22/18 at 14:59; Status DC Magnesium Sulfate 50 ml @ 25 mls/hr 1X ONCE IV Last administered on 08/22/18at 10:52; Start 08/22/18 at 11:00; Stop 08/22/18 at 12:59; Status DC Sodium Chloride 90 meq/Sodium Phosphate 15 mmol/ Potassium Chloride 35 meq/ Potassium Phosphate 25 mmol/ Magnesium Sulfate 18 meq/ Multivitamins 10 ml/Chromium/ Copper/Manganese/ Seleni/Zn 1 ml/ Total Parenteral Nutrition/Amino Acids/Dextrose/ Fat Emulsion Intravenous 1,512 ml @ 63 mls/hr TPN CONT IV Last administered on 08/22/18at 21:28; Start 08/22/18 at 22:00; Stop 08/23/18 at 21:59; Status DC Famotidine (Pepcid) 20 mg QHS PO Last administered on 08/27/18at 21:15; Start 08/23/18 at 21:00 Sodium Chloride 90 meq/Sodium Phosphate 15 mmol/ Potassium Chloride 35 meq/ Potassium Phosphate 25 mmol/ Magnesium Sulfate 18 meq/ Multivitamins 10 ml/Chromium/ Copper/Manganese/ Seleni/Zn 1 ml/ Total Parenteral Nutrition/Amino Acids/Dextrose/ Fat Emulsion Intravenous 1,512 ml @ 63 mls/hr TPN CONT IV Last administered on 08/23/18at 21:59; Start 08/23/18 at 22:00; Stop 08/24/18 at 21:59; Status DC Vitamin D (Vitamin D3) 1,000 unit DAILY PO Last administered on 08/27/18at 08:06; Start 08/23/18 at 16:00 Non-Formulary Medication (Multivitamin (Multivitamins)) 1 each DAILY PO ; Start 08/24/18 at 09:00; Status UNV Metoprolol Tartrate (Lopressor) 12.5 mg BID PO Last administered on 08/25/18at 09:04; Start 08/23/18 at 15:30; Stop 08/25/18 at 13:43; Status DC Sodium Chloride 500 ml @ 500 mls/hr 1X ONCE IV Last administered on 08/23/18at 16:12; Start 08/23/18 at 15:30; Stop 08/23/18 at 16:29; Status DC Iohexol (Omnipaque 300 Mg/ml) 75 ml 1X ONCE IV Last administered on 08/24/18at 10:15; Start 08/24/18 at 08:15; Stop 08/24/18 at 08:18; Status DC Info (CONTRAST GIVEN -- Rx MONITORING) 1 each PRN DAILY PRN MC SEE COMMENTS; Start 08/24/18 at 08:30; Stop 08/26/18 at 08:29; Status DC Sodium Chloride 90 meq/Sodium Phosphate 15 mmol/ Potassium Chloride 35 meq/ Potassium Phosphate 25 mmol/ Magnesium Sulfate 18 meq/ Multivitamins 10 ml/Chromium/ Copper/Manganese/ Seleni/Zn 1 ml/ Total Parenteral Nutrition/Amino Acids/Dextrose/ Fat Emulsion Intravenous 1,512 ml @ 63 mls/hr TPN CONT IV Last administered on 08/24/18at 21:32; Start 08/24/18 at 22:00; Stop 08/25/18 at 21:59; Status DC Vitamin A/Vitamin D (Vitamin A & D Ointment) 1 gadiel QID TP Last administered on 08/27/18at 21:16; Start 08/24/18 at 17:00 Adenosine (Adenocard) 6 mg 1X ONCE IV Last administered on 08/24/18at 19:56; Start 08/24/18 at 20:00; Stop 08/24/18 at 20:01; Status DC Sodium Chloride 90 meq/Sodium Phosphate 15 mmol/ Potassium Chloride 35 meq/ Potassium Phosphate 25 mmol/ Magnesium Sulfate 18 meq/ Multivitamins 10 ml/Chromium/ Copper/Manganese/ Seleni/Zn 1 ml/ Total Parenteral Nutrition/Amino Acids/Dextrose/ Fat Emulsion Intravenous 1,512 ml @ 63 mls/hr TPN CONT IV Last administered on 08/25/18at 21:42; Start 08/25/18 at 22:00; Stop 08/26/18 at 21:59; Status DC Metoprolol Tartrate (Lopressor) 25 mg BID PO Last administered on 08/27/18at 21:15; Start 08/25/18 at 21:00 Metoprolol Tartrate (Lopressor) 12.5 mg 1X ONCE PO Last administered on 08/25/18at 14:30; Start 08/25/18 at 14:15; Stop 08/25/18 at 14:16; Status DC Sodium Chloride 90 meq/Sodium Phosphate 15 mmol/ Potassium Chloride 35 meq/ Potassium Phosphate 25 mmol/ Magnesium Sulfate 18 meq/ Multivitamins 10 ml/Chromium/ Copper/Manganese/ Seleni/Zn 1 ml/ Total Parenteral Nutrition/Amino Acids/Dextrose/ Fat Emulsion Intravenous 1,512 ml @ 63 mls/hr TPN CONT IV Last administered on 08/26/18at 21:34; Start 08/26/18 at 22:00; Stop 08/27/18 at 21:59; Status DC Lactobacillus Rhamnosus (Culturelle) 1 cap BID PO Last administered on 08/27/18at 21:15; Start 08/26/18 at 21:00 Sodium Chloride 90 meq/Sodium Phosphate 15 mmol/ Potassium Chloride 35 meq/ Potassium Phosphate 25 mmol/ Magnesium Sulfate 18 meq/ Multivitamins 10 ml/Chromium/ Copper/Manganese/ Seleni/Zn 1 ml/ Total Parenteral Nutrition/Amino Acids/Dextrose/ Fat Emulsion Intravenous 1,512 ml @ 63 mls/hr TPN CONT IV Last administered on 08/27/18at 21:16; Start 08/27/18 at 22:00; Stop 08/28/18 at 21:59 Active Scripts Active Meropenem 500 Mg Vial 500 Mg IV Q8HRS 14 Days [Tpn Per Pharmacy] 1 EACH Each 1 Each MC PRN DAILY PRN 45 Days Metoprolol Tartrate 25 Mg Tablet 12.5 Mg PO BID 30 Days Diphenoxylate-Atropine Tablet (Diphenoxylate Hcl/Atropine) 1 Each Tablet 1 Tab PO PRN QID PRN 30 Days Famotidine 20 Mg Tablet 20 Mg PO QHS 60 Days Aspirin Ec (Aspirin) 81 Mg Tablet.dr 81 Mg PO DAILYWBKFT 30 Days Reported Multivitamins (Multivitamin) 1 Each Tablet 1 Each PO DAILY Vitamin D3 (Cholecalciferol (Vitamin D3)) 1,000 Unit Tablet 1,000 Unit PO DAILY Vitals/I & O Vital Sign - Last 24 Hours 08/27/18 08/27/18 08/27/18 08/27/18 11:05 15:05 19:20 19:30 Temp 97.5 97.8 97.9 97.5 97.8 97.9 Pulse 76 94 94 Resp 16 12 16 B/P (MAP) 105/65 (78) 106/54 (71) 117/61 (79) Pulse Ox 100 100 96 O2 Delivery Room Air Room Air Room Air Room Air 08/27/18 08/27/18 08/27/18 08/28/18 19:41 21:15 23:36 03:05 Temp 97.7 97.4 97.7 97.4 Pulse 94 84 87 Resp 16 16 B/P (MAP) 117/61 113/59 (77) 99/54 (69) Pulse Ox 98 O2 Delivery Room Air Room Air 08/28/18 08/28/18 07:09 08:00 Temp 97.4 97.4 Pulse 89 Resp 16 B/P (MAP) 112/53 (72) Pulse Ox 99 O2 Delivery Room Air Room Air Intake and Output 08/27/18 08/27/18 08/28/18 14:59 22:59 06:59 Intake Total 400 ml 300 ml 50 ml Output Total 550 ml 950 ml 1050 ml Balance -150 ml -650 ml -1000 ml Nutrition Consultation Dietary Evaluation: Recommendations by RD: Increase Calorie Intake, Protein supplementation, PPN/TPN Comments: Continue w/TPN per current order for nutrition needs REC Vit C 500 mg BID, MVI q day for wound healing as able Advance diet as able to regular, note multiple food intolerances Expected Outcomes/Goals: to meet > 75% est nutr needs via TPN - met, goal ongoing Interpretation of weight loss: >10% in 6 months Malnutrition Findings: Muscle Mass (Severe): Severe Depletion Weight Status: Underweight DENNIS WHALEY MD Aug 28, 2018 09:18
--- NOTE | 2018-08-28 09:31 | PDOC ---
PULMONARY PROGRESS NOTES Subjective PT FEEL MORE ENERGETIC TODAY Vitals Vital Signs Date Time Temp Pulse Resp B/P (MAP) Pulse Ox O2 Delivery O2 Flow Rate FiO2 08/28/18 08:00 Room Air 08/28/18 07:09 97.4 89 16 112/53 (72) 99 97.4 ROS: No Nausea, No Chest Pain, No Abdominal Pain, No Increase Cough General: Alert, No acute distress HEENT: Other (nc at perrl) Lungs: Crackles Cardiovascular: S1, S2 Abdomen: Soft, Non-tender Extremities: No Edema Labs Laboratory Tests Test 08/26/18 12:00 08/26/18 18:14 08/26/18 21:49 08/27/18 05:23 Glucose (Fingerstick) 117 mg/dL (70-99) 112 mg/dL (70-99) 116 mg/dL (70-99) 102 mg/dL (70-99) Test 08/27/18 05:35 08/27/18 14:10 08/27/18 17:52 08/27/18 23:05 White Blood Count 4.2 x10^3/uL (4.0-11.0) Red Blood Count 2.39 x10^6/uL (3.50-5.40) Hemoglobin 7.4 g/dL (12.0-15.5) Hematocrit 21.4 % (36.0-47.0) Mean Corpuscular Volume 90 fL (79-100) Mean Corpuscular Hemoglobin 31 pg (25-35) Mean Corpuscular Hemoglobin Concent 35 g/dL (31-37) Red Cell Distribution Width 16.1 % (11.5-14.5) Platelet Count 269 x10^3/uL (140-400) Neutrophils (%) (Auto) 76 % (31-73) Lymphocytes (%) (Auto) 14 % (24-48) Monocytes (%) (Auto) 8 % (0-9) Eosinophils (%) (Auto) 1 % (0-3) Basophils (%) (Auto) 1 % (0-3) Neutrophils # (Auto) 3.2 x10^3uL (1.8-7.7) Lymphocytes # (Auto) 0.6 x10^3/uL (1.0-4.8) Monocytes # (Auto) 0.3 x10^3/uL (0.0-1.1) Eosinophils # (Auto) 0.0 x10^3/uL (0.0-0.7) Basophils # (Auto) 0.0 x10^3/uL (0.0-0.2) Glucose (Fingerstick) 129 mg/dL (70-99) 113 mg/dL (70-99) 101 mg/dL (70-99) Test 08/28/18 05:33 08/28/18 05:45 Glucose (Fingerstick) 97 mg/dL (70-99) Sodium Level 135 mmol/L (136-145) Potassium Level 3.9 mmol/L (3.5-5.1) Chloride Level 103 mmol/L (98-107) Carbon Dioxide Level 27 mmol/L (21-32) Anion Gap 5 (6-14) Blood Urea Nitrogen 17 mg/dL (7-20) Creatinine 0.3 mg/dL (0.6-1.0) Estimated GFR (Cockcroft-Gault) 218.7 Glucose Level 100 mg/dL (70-99) Calcium Level 7.9 mg/dL (8.5-10.1) Phosphorus Level 3.3 mg/dL (2.6-4.7) Magnesium Level 2.0 mg/dL (1.8-2.4) Laboratory Tests Test 08/27/18 14:10 08/27/18 17:52 08/27/18 23:05 08/28/18 05:33 Glucose (Fingerstick) 129 mg/dL (70-99) 113 mg/dL (70-99) 101 mg/dL (70-99) 97 mg/dL (70-99) Test 08/28/18 05:45 Sodium Level 135 mmol/L (136-145) Potassium Level 3.9 mmol/L (3.5-5.1) Chloride Level 103 mmol/L (98-107) Carbon Dioxide Level 27 mmol/L (21-32) Anion Gap 5 (6-14) Blood Urea Nitrogen 17 mg/dL (7-20) Creatinine 0.3 mg/dL (0.6-1.0) Estimated GFR (Cockcroft-Gault) 218.7 Glucose Level 100 mg/dL (70-99) Calcium Level 7.9 mg/dL (8.5-10.1) Phosphorus Level 3.3 mg/dL (2.6-4.7) Magnesium Level 2.0 mg/dL (1.8-2.4) Medications Active Scripts Medications Dose Route/Sig Max Daily Dose Days Date Category Avelox (Moxifloxacin Hcl) 400 Mg Tablet 1 Tab PO DAILY 05/17/18 Rx Diphenoxylate-Atropine Tablet (Diphenoxylate Hcl/Atropine) 1 Each Tablet 1 Tab PO PRN QID PRN 30 04/21/18 Rx Famotidine 20 Mg Tablet 20 Mg PO QHS 60 04/19/18 Rx Aspirin Ec (Aspirin) 81 Mg Tablet.dr 81 Mg PO DAILYWBKFT 30 04/19/18 Rx Toprol Xl (Metoprolol Succinate) 50 Mg Tab.er.24h 50 Mg PO HS 30 04/19/18 Rx Hydrocodone-Apap 5-325 (Hydrocodone Bit/Acetaminophen) 1 Tab Tablet 1 Tab PO PRN Q4HRS PRN 03/09/18 Rx Multivitamins (Multivitamin) 1 Each Tablet 1 Each PO DAILY 03/07/18 Reported Vitamin D3 (Cholecalciferol (Vitamin D3)) 1,000 Unit Tablet 1,000 Unit PO DAILY 03/07/[address] reviewed 1. The previously seen right lower lobe cavitary lesion is again identified, with an increased gas and diminished fluid component since prior study. 2. Increased cavitation in the separate lesion in the superior segment of the right lower lobe. 3. Multiple new small cavitary nodules are now identified in both lungs. This does raise the question of septic emboli, versus scattered infectious foci or metastases. Impression . 1. Abnormal CT chest with a cavitary mass in the right chest, likely abscess. This is considerably reduced in size compared to the 03/2018 CT. D/W RADIOLOGY. Location of recent right lung abscess slightly inferior to previous one and as such new abscess. There is new pneumonia in RUL and tiny thin cavitary nodules in left lung. She likely has ongoing / recurrent aspiration form bowel obstruction contributing to recurrent lung abscess. 2. MALNUTRITION 3. No significant history of tobacco use. 4. Coffee ground NG aspirate 5. Pneumoperitonium 6. RECURRENT SBO, ? aspiration Bronch cultures from Mar 2018 BRONCH CULTURE Final Final report BRONCH RES 1 Final Citrobacter freundii 4+ ANTIMICROBIAL SUSCEPTIBILITY Final Comment S = Susceptible; I = Intermediate; R = Resistant P = Positive; N = Negative MICS are expressed in micrograms per mL Antibiotic RSLT#1 RSLT#2 RSLT#3 RSLT#4 Amoxicillin/Clavulanic Acid R>=32 Cefazolin R>=64 Cefepime S<=0.12 Ceftriaxone R>=64 Cefuroxime R>=64 Ciprofloxacin S<=0.25 Gentamicin S<=1 Imipenem S<=0.25 Levofloxacin S<=0.12 Meropenem S<=0.25 Nitrofurantoin S<=16 Tetracycline S<=1 Tobramycin S<=1 Trimethoprim/Sulfa S<=20 Performed at: DA - [facility] [address], [place], [place] [id number] Instructor Robotics: KAILASH Zarate MD, Phone: [phone] Plan . REVIEWED R/B/A TO BRONCH PT ACCEPTEDn ANTI BX PER ID PT EVAL AND TREAT, increase activity NUTRITIONAL SUPPORT ARTURO ORTEGA MD Aug 28, 2018 09:31
[2018-08-28] MEDS: METOPROLOL TART IMMED RELEASE 25 MG TABLET. PO SCH ×2 (10:45→21:28)
[2018-08-28] MEDS: VITS A & D/LANOLIN TOPICAL OINTMENT 56GM TUBE. TP SCH ×4 (10:46→21:00)
[2018-08-28 11:18] LABS: ALBUMIN 1.7 g/dL (3.4-5.0); DIRECT BILIRUBIN 0.1 mg/dL (0.0-0.2); TOTAL BILIRUBIN 0.2 mg/dL (0.2-1.0); TOTAL PROTEIN 4.5 g/dL (6.4-8.2)
--- NOTE | 2018-08-28 11:20 | PDOC ---
Subjective: Subjective: Feeling much better overall - felt depressed on Tuesday but better now. Describes a lot of stools following CT last week, then slowed - passed gas and small stool last night. Ate [employer] sandwich, a few chips, and a baked potato yesterday. Mentions plans to go to [facility] on discharge. Objective: Objective: D/w RN - ?DC to [facility] tomorrow Vital Signs: Vital Signs Date Time Temp Pulse Resp B/P (MAP) Pulse Ox O2 Delivery O2 Flow Rate FiO2 08/28/18 10:51 97.4 98 16 109/53 (71) 96 Room Air 97.4 Labs: Laboratory Tests Test 08/27/18 14:10 08/27/18 17:52 08/27/18 23:05 08/28/18 05:33 Glucose (Fingerstick) 129 mg/dL 113 mg/dL 101 mg/dL 97 mg/dL Test 08/28/18 05:45 Sodium Level 135 mmol/L Potassium Level 3.9 mmol/L Chloride Level 103 mmol/L Carbon Dioxide Level 27 mmol/L Anion Gap 5 Blood Urea Nitrogen 17 mg/dL Creatinine 0.3 mg/dL Estimated GFR (Cockcroft-Gault) 218.7 Glucose Level 100 mg/dL Calcium Level 7.9 mg/dL Phosphorus Level 3.3 mg/dL Magnesium Level 2.0 mg/dL PE: GEN: NAD, up to chair cross-stitching LUNGS: room air HEART: RRR ABD: quiet BS, S/ND/NT NEURO/PSYCH: A & O 3 A/P: Recurrent SBO Pulm abscess PSVT Anemia - iron studies c/w chronic illness anemia though fecal occult is positive Abnormal LFTs on TPN -- Tolerating PO and stooling. Will review anemia w/ Dr. Mckeon - Hgb 7.4 today. Follow LFTs. Await bronchoscopy findings. MARK UP Aug 28, 2018 11:20
--- NOTE | 2018-08-28 12:07 | NUR ---
SS following up with discharge planning. SS phoned and faxed clinical updates to [facility], ; fax [phone]. Pt accepted at [facility] pending bed availability.
[2018-08-28] MEDS ORDERED: LIDOCAINE 2% VISCOUS 100 ML BOTTLE. MM PRN (12:15)
[2018-08-28] MEDS ORDERED: LIDOCAINE 1% Multi-Dose 20 ML VIAL. INJ PRN (12:15)
[2018-08-28] MEDS ORDERED: LIDOCAINE 4% TOPICAL 50 ML SOLUTION. MM PRN (12:15)
[2018-08-28] MEDS ORDERED: ALBUTEROL SULFATE 2.5 MG/3 ML NEBU. NEB PRN (12:15)
[2018-08-28] MEDS ORDERED: EPINEPHrine 1 MG/ML VIAL INJ PRN (12:15)
[2018-08-28] MEDS ORDERED: LIDOCAINE 4% TOPICAL 50 ML SOLUTION. ONE (12:22)
[2018-08-28] MEDS ORDERED: EPINEPHrine 1 MG/ML VIAL ONE (12:22)
[2018-08-28] MEDS ORDERED: LIDOCAINE 2% VISCOUS 100 ML BOTTLE. ONE (12:22)
[2018-08-28] MEDS ORDERED: LIDOCAINE 1% Multi-Dose 20 ML VIAL. ONE (12:22)
[2018-08-28] MEDS ORDERED: IV RINGERS,LACTATED 1000ML 1,000 ML IV SCH ×2 (12:23→12:37)
[2018-08-28] MEDS ORDERED: LIDOCAINE 1% PF 2 ML VIAL. ID PRN (12:30)
[2018-08-28] MEDS ORDERED: MIDAZOLAM HCL/PF 2 MG/2 ML VIAL. IV PRN (12:30)
[2018-08-28] MEDS ORDERED: fentaNYL PF VIAL 100 MCG/2 ML VIAL IV PRN ×2 (12:30)
[2018-08-28] MEDS ORDERED: METO25TA4 PO (12:49)
--- NOTE | 2018-08-28 12:54 | PDOC ---
PROGRESS NOTES Subjective Subjective Patient Awaiting bronch. HGB down with Hx of SVT and heme + stools. To select in AM. Objective Objective Vital Signs Date Time Temp Pulse Resp B/P (MAP) Pulse Ox O2 Delivery O2 Flow Rate FiO2 08/28/18 10:51 97.4 98 16 109/53 (71) 96 Room Air 97.4 Intake and Output 08/28/18 06:59 Intake Total 750 ml Output Total 2550 ml Balance -1800 ml Intake Oral 700 ml IV Total 50 ml Output Urine Total 2550 ml # Bowel Movements 1 Physical Exam Abdomen: Normal bowel sounds Heart: No murmurs Extremities: No clubbing General: Alert Lungs: Clear to auscultation Assessment Assessment Problems Medical Problems: (1) Pneumoperitoneum Status: Acute 1. Functional Small-bowel obstruction 2. Severe protein malnutrition. 3. Leukopenia. 4. Hyponatremia- resolved 5. Hypomagnesemia. 6. Hypokalemia- replacing 7. 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 Pt on Meropenem currently 8. SVT 9. Anemia GI bleed Plan Plan of Care Pulmonary planning bronchoscopy Continue TPN planned for 4-6 weeks of treatment. Increase activity Acute long-term [facility]. Continue IV antibiotics. Increase activity with PT and OT. Transfuse 1 unit PRBC start Protonix Comment Review of Relevant I have reviewed the following items jackie (where applicable) has been applied. Labs Laboratory Tests Test 08/26/18 18:14 08/26/18 21:49 08/27/18 05:23 08/27/18 05:35 Glucose (Fingerstick) 112 mg/dL (70-99) 116 mg/dL (70-99) 102 mg/dL (70-99) White Blood Count 4.2 x10^3/uL (4.0-11.0) Red Blood Count 2.39 x10^6/uL (3.50-5.40) Hemoglobin 7.4 g/dL (12.0-15.5) Hematocrit 21.4 % (36.0-47.0) Mean Corpuscular Volume 90 fL (79-100) Mean Corpuscular Hemoglobin 31 pg (25-35) Mean Corpuscular Hemoglobin Concent 35 g/dL (31-37) Red Cell Distribution Width 16.1 % (11.5-14.5) Platelet Count 269 x10^3/uL (140-400) Neutrophils (%) (Auto) 76 % (31-73) Lymphocytes (%) (Auto) 14 % (24-48) Monocytes (%) (Auto) 8 % (0-9) Eosinophils (%) (Auto) 1 % (0-3) Basophils (%) (Auto) 1 % (0-3) Neutrophils # (Auto) 3.2 x10^3uL (1.8-7.7) Lymphocytes # (Auto) 0.6 x10^3/uL (1.0-4.8) Monocytes # (Auto) 0.3 x10^3/uL (0.0-1.1) Eosinophils # (Auto) 0.0 x10^3/uL (0.0-0.7) Basophils # (Auto) 0.0 x10^3/uL (0.0-0.2) Test 08/27/18 14:10 08/27/18 17:52 08/27/18 23:05 08/28/18 05:33 Glucose (Fingerstick) 129 mg/dL (70-99) 113 mg/dL (70-99) 101 mg/dL (70-99) 97 mg/dL (70-99) Test 08/28/18 05:45 08/28/18 12:03 Sodium Level 135 mmol/L (136-145) Potassium Level 3.9 mmol/L (3.5-5.1) Chloride Level 103 mmol/L (98-107) Carbon Dioxide Level 27 mmol/L (21-32) Anion Gap 5 (6-14) Blood Urea Nitrogen 17 mg/dL (7-20) Creatinine 0.3 mg/dL (0.6-1.0) Estimated GFR (Cockcroft-Gault) 218.7 Glucose Level 100 mg/dL (70-99) Calcium Level 7.9 mg/dL (8.5-10.1) Phosphorus Level 3.3 mg/dL (2.6-4.7) Magnesium Level 2.0 mg/dL (1.8-2.4) Total Bilirubin 0.2 mg/dL (0.2-1.0) Direct Bilirubin 0.1 mg/dL (0.0-0.2) Aspartate Amino Transf (AST/SGOT) 188 U/L (15-37) Alanine Aminotransferase (ALT/SGPT) 288 U/L (14-59) Alkaline Phosphatase 203 U/L (46-116) Total Protein 4.5 g/dL (6.4-8.2) Albumin 1.7 g/dL (3.4-5.0) Glucose (Fingerstick) 91 mg/dL (70-99) Laboratory Tests Test 08/27/18 14:10 08/27/18 17:52 08/27/18 23:05 08/28/18 05:33 Glucose (Fingerstick) 129 mg/dL (70-99) 113 mg/dL (70-99) 101 mg/dL (70-99) 97 mg/dL (70-99) Test 08/28/18 05:45 08/28/18 12:03 Sodium Level 135 mmol/L (136-145) Potassium Level 3.9 mmol/L (3.5-5.1) Chloride Level 103 mmol/L (98-107) Carbon Dioxide Level 27 mmol/L (21-32) Anion Gap 5 (6-14) Blood Urea Nitrogen 17 mg/dL (7-20) Creatinine 0.3 mg/dL (0.6-1.0) Estimated GFR (Cockcroft-Gault) 218.7 Glucose Level 100 mg/dL (70-99) Calcium Level 7.9 mg/dL (8.5-10.1) Phosphorus Level 3.3 mg/dL (2.6-4.7) Magnesium Level 2.0 mg/dL (1.8-2.4) Total Bilirubin 0.2 mg/dL (0.2-1.0) Direct Bilirubin 0.1 mg/dL (0.0-0.2) Aspartate Amino Transf (AST/SGOT) 188 U/L (15-37) Alanine Aminotransferase (ALT/SGPT) 288 U/L (14-59) Alkaline Phosphatase 203 U/L (46-116) Total Protein 4.5 g/dL (6.4-8.2) Albumin 1.7 g/dL (3.4-5.0) Glucose (Fingerstick) 91 mg/dL (70-99) Microbiology 08/18/18 Blood Culture - Final, Complete NO GROWTH AFTER 5 DAYS Medications Current Medications Sodium Chloride 1,000 ml @ 100 mls/hr Q10H IV Last administered on 08/17/18at 06:55; Start 08/17/18 at 06:30; Stop 08/17/18 at 16:29; Status DC Ondansetron HCl (Zofran) 4 mg 1X ONCE IV Last administered on 08/17/18at 06:55; Start 08/17/18 at 06:30; Stop 08/17/18 at 06:31; Status DC Iohexol (Omnipaque 240 Mg/ml) 30 ml 1X ONCE PO Last administered on 08/17/18at 07:15; Start 08/17/18 at 07:15; Stop 08/17/18 at 07:16; Status DC Iohexol (Omnipaque 300 Mg/ml) 75 ml 1X ONCE IV Last administered on 08/17/18at 08:11; Start 08/17/18 at 07:15; Stop 08/17/18 at 07:16; Status DC Info (CONTRAST GIVEN -- Rx MONITORING) 1 each PRN DAILY PRN MC SEE COMMENTS; Start 08/17/18 at 07:15; Stop 08/19/18 at 07:14; Status DC Sodium Chloride 1,000 ml @ 1,000 mls/hr 1X ONCE IV Last administered on 08/17/18at 07:45; Start 08/17/18 at 07:45; Stop 08/17/18 at 08:44; Status DC Magnesium Sulfate/ Dextrose 100 ml @ 100 mls/hr 1X ONCE IV Last administered on 08/17/18at 14:55; Start 08/17/18 at 07:45; Stop 08/17/18 at 08:44; Status DC Potassium Chloride/Water 100 ml @ 100 mls/hr Q1H IV Last administered on 08/17/18at 09:23; Start 08/17/18 at 07:45; Stop 08/17/18 at 09:44; Status DC Ertapenem 50 ml @ 100 mls/hr 1X ONCE IV ; Start 08/17/18 at 09:15; Stop 08/17/18 at 09:44; Status UNV Meropenem 500 mg/ Sodium Chloride 50 ml @ 100 mls/hr 1X ONCE IV Last administered on 08/17/18at 10:53; Start 08/17/18 at 09:30; Stop 08/17/18 at 09:59; Status DC Ondansetron HCl (Zofran) 4 mg PRN Q8HRS PRN IV NAUSEA/VOMITING; Start 08/17/18 at 10:00; Stop 08/18/18 at 09:59; Status DC Morphine Sulfate (Morphine Sulfate) 4 mg PRN Q2HR PRN IV PAIN; Start 08/17/18 at 10:00; Stop 08/18/18 at 09:59; Status DC Meropenem 500 mg/ Sodium Chloride 50 ml @ 100 mls/hr Q8HRS IV Last administered on 08/28/18at 05:21; Start 08/17/18 at 14:00 Amino Acids/ Glycerin/ Electrolytes 1,000 ml @ 80 mls/hr [id number] IV Last administered on 08/17/18at 20:57; Start 08/17/18 at 20:15; Stop 08/19/18 at 10:57; Status DC Potassium Chloride/Sodium Chloride 1,000 ml @ 75 mls/hr 1X ONCE IV Last administered on 08/18/18at 11:26; Start 08/18/18 at 07:45; Stop 08/18/18 at 21:04; Status DC Magnesium Sulfate 50 ml @ 25 mls/hr 1X ONCE IV Last administered on 08/18/18at 13:50; Start 08/18/18 at 09:00; Stop 08/18/18 at 10:59; Status DC Famotidine (Pepcid Vial) 20 mg QHS IVP Last administered on 08/22/18at 21:27; Start 08/18/18 at 21:00; Stop 08/23/18 at 09:15; Status DC Info (Tpn Per Pharmacy) 1 each PRN DAILY PRN MC SEE COMMENTS Last administered on 08/27/18at 12:44; Start 08/18/18 at 13:15 Sodium Chloride 90 meq/Potassium Chloride 50 meq/ Potassium Phosphate 13.6 mmol/Magnesium Sulfate 10 meq/ Calcium Gluconate 10 meq/ Multivitamins 10 ml/Ch romium/ Copper/Manganese/ Seleni/Zn 1 ml/ Total Parenteral Nutrition/Amino Acids/Dextrose/ Fat Emulsion Intravenous 1,512 ml @ 63 mls/hr TPN CONT IV Last administered on 08/19/18at 03:19; Start 08/18/18 at 22:00; Stop 08/19/18 at 21:59; Status DC Potassium Phosphate 10 mmol/ Dextrose 103.3333 ml @ 51.667 m... Q2H IV Last administered on 08/19/18at 12:06; Start 08/19/18 at 12:00; Stop 08/19/18 at 15:59; Status DC Calcium Gluconate 1000 mg/Dextrose 110 ml @ 220 mls/hr 1X ONCE IV Last administered on 08/19/18at 15:26; Start 08/19/18 at 15:00; Stop 08/19/18 at 15:29; Status DC Furosemide (Lasix) 20 mg 1X ONCE IVP Last administered on 08/19/18at 13:45; Start 08/19/18 at 13:15; Stop 08/19/18 at 13:16; Status DC Sodium Chloride 90 meq/Potassium Chloride 60 meq/ Potassium Phosphate 17 mmol/ Magnesium Sulfate 10 meq/Calcium Gluconate 15 meq/ Multivitamins 10 ml/Chromium/ Copper/Manganese/ Seleni/Zn 1 ml/ Total Parenteral Nutrition/Amino Acids/Dextrose/ Fat Emulsion Intravenous 1,512 ml @ 63 mls/hr TPN CONT IV Last administered on 08/19/18at 21:46; Start 08/19/18 at 22:00; Stop 08/20/18 at 21:59; Status DC Dextrose (Dextrose 50%-Water Syringe) 12.5 gm PRN Q15MIN PRN IV SEE COMMENTS; Start 08/20/18 at 06:30 Adenosine (Adenocard) 6 mg 1X ONCE IV Last administered on 08/20/18at 07:45; Start 08/20/18 at 10:00; Stop 08/20/18 at 10:08; Status DC Sodium Phosphate 30 mmol/Dextrose 260 ml @ 65 mls/hr 1X ONCE IV Last administered on 08/20/18at 13:04; Start 08/20/18 at 13:00; Stop 08/20/18 at 16:59; Status DC Sodium Chloride 90 meq/Potassium Chloride 60 meq/ Potassium Phosphate 25 mmol/ Magnesium Sulfate 10 meq/Calcium Gluconate 10 meq/ Multivitamins 10 ml/Chromium/ Copper/Manganese/ Seleni/Zn 1 ml/ Total Parenteral Nutrition/Amino Acids/Dextrose/ Fat Emulsion Intravenous 1,512 ml @ 63 mls/hr TPN CONT IV Last administered on 08/20/18at 20:32; Start 08/20/18 at 22:00; Stop 08/21/18 at 21:59; Status DC Bisacodyl (Dulcolax Supp) 10 mg 1X ONCE WI Last administered on 08/21/18at 11:14; Start 08/21/18 at 09:45; Stop 08/21/18 at 09:46; Status DC Potassium Phosphate 15 mmol/ Sodium Chloride 255 ml @ 127.5 mls/ hr 1X ONCE IV Last administered on 08/21/18at 16:48; Start 08/21/18 at 15:00; Stop 08/21/18 at 16:59; Status DC Sodium Chloride 90 meq/Potassium Chloride 60 meq/ Potassium Phosphate 25 mmol/ Magnesium Sulfate 13 meq/Calcium Gluconate 10 meq/ Multivitamins 10 ml/Chromium/ Copper/Manganese/ Seleni/Zn 1 ml/ Total Parenteral Nutrition/Amino Acids/Dextrose/ Fat Emulsion Intravenous 1,512 ml @ 63 mls/hr TPN CONT IV Last administered on 08/21/18at 22:03; Start 08/21/18 at 22:00; Stop 08/22/18 at 21:59; Status DC Metoprolol Tartrate (Lopressor Vial) 5 mg PRN Q6HRS PRN IVP TACHYCARDIA Last administered on 08/22/18at 17:23; Start 08/22/18 at 10:00 Sodium Phosphate 30 mmol/Dextrose 260 ml @ 65 mls/hr 1X ONCE IV Last administered on 08/22/18at 14:13; Start 08/22/18 at 11:00; Stop 08/22/18 at 14:59; Status DC Magnesium Sulfate 50 ml @ 25 mls/hr 1X ONCE IV Last administered on 08/22/18at 10:52; Start 08/22/18 at 11:00; Stop 08/22/18 at 12:59; Status DC Sodium Chloride 90 meq/Sodium Phosphate 15 mmol/ Potassium Chloride 35 meq/ Potassium Phosphate 25 mmol/ Magnesium Sulfate 18 meq/ Multivitamins 10 ml/Chromium/ Copper/Manganese/ Seleni/Zn 1 ml/ Total Parenteral Nutrition/Amino Acids/Dextrose/ Fat Emulsion Intravenous 1,512 ml @ 63 mls/hr TPN CONT IV Last administered on 08/22/18at 21:28; Start 08/22/18 at 22:00; Stop 08/23/18 at 21:59; Status DC Famotidine (Pepcid) 20 mg QHS PO Last administered on 08/27/18at 21:15; Start 08/23/18 at 21:00 Sodium Chloride 90 meq/Sodium Phosphate 15 mmol/ Potassium Chloride 35 meq/ Potassium Phosphate 25 mmol/ Magnesium Sulfate 18 meq/ Multivitamins 10 ml/C hromium/ Copper/Manganese/ Seleni/Zn 1 ml/ Total Parenteral Nutrition/Amino Acids/Dextrose/ Fat Emulsion Intravenous 1,512 ml @ 63 mls/hr TPN CONT IV Last administered on 08/23/18at 21:59; Start 08/23/18 at 22:00; Stop 08/24/18 at 21:59; Status DC Vitamin D (Vitamin D3) 1,000 unit DAILY PO Last administered on 08/27/18at 08:06; Start 08/23/18 at 16:00 Non-Formulary Medication (Multivitamin (Multivitamins)) 1 each DAILY PO ; Start 08/24/18 at 09:00; Status UNV Metoprolol Tartrate (Lopressor) 12.5 mg BID PO Last administered on 08/25/18at 09:04; Start 08/23/18 at 15:30; Stop 08/25/18 at 13:43; Status DC Sodium Chloride 500 ml @ 500 mls/hr 1X ONCE IV Last administered on 08/23/18at 16:12; Start 08/23/18 at 15:30; Stop 08/23/18 at 16:29; Status DC Iohexol (Omnipaque 300 Mg/ml) 75 ml 1X ONCE IV Last administered on 08/24/18at 10:15; Start 08/24/18 at 08:15; Stop 08/24/18 at 08:18; Status DC Info (CONTRAST GIVEN -- Rx MONITORING) 1 each PRN DAILY PRN MC SEE COMMENTS; Start 08/24/18 at 08:30; Stop 08/26/18 at 08:29; Status DC Sodium Chloride 90 meq/Sodium Phosphate 15 mmol/ Potassium Chloride 35 meq/ Potassium Phosphate 25 mmol/ Magnesium Sulfate 18 meq/ Multivitamins 10 ml/Chromium/ Copper/Manganese/ Seleni/Zn 1 ml/ Total Parenteral Nutrition/Amino Acids/Dextrose/ Fat Emulsion Intravenous 1,512 ml @ 63 mls/hr TPN CONT IV Last administered on 08/24/18at 21:32; Start 08/24/18 at 22:00; Stop 08/25/18 at 21:59; Status DC Vitamin A/Vitamin D (Vitamin A & D Ointment) 1 gadiel QID TP Last administered on 08/28/18at 10:46; Start 08/24/18 at 17:00 Adenosine (Adenocard) 6 mg 1X ONCE IV Last administered on 08/24/18at 19:56; Start 08/24/18 at 20:00; Stop 08/24/18 at 20:01; Status DC Sodium Chloride 90 meq/Sodium Phosphate 15 mmol/ Potassium Chloride 35 meq/ Potassium Phosphate 25 mmol/ Magnesium Sulfate 18 meq/ Multivitamins 10 ml/Chromium/ Copper/Manganese/ Seleni/Zn 1 ml/ Total Parenteral Nutrition/Amino Acids/Dextrose/ Fat Emulsion Intravenous 1,512 ml @ 63 mls/hr TPN CONT IV Last administered on 08/25/18 21:42; Start 08/25/18 at 22:00; Stop 08/26/18 at 21:59; Status DC Metoprolol Tartrate (Lopressor) 25 mg BID PO Last administered on 08/28/18at 10:45; Start 08/25/18 at 21:00 Metoprolol Tartrate (Lopressor) 12.5 mg 1X ONCE PO Last administered on 08/25/18at 14:30; Start 08/25/18 at 14:15; Stop 08/25/18 at 14:16; Status DC Sodium Chloride 90 meq/Sodium Phosphate 15 mmol/ Potassium Chloride 35 meq/ Potassium Phosphate 25 mmol/ Magnesium Sulfate 18 meq/ Multivitamins 10 ml/Chromium/ Copper/Manganese/ Seleni/Zn 1 ml/ Total Parenteral Nutrition/Amino Acids/Dextrose/ Fat Emulsion Intravenous 1,512 ml @ 63 mls/hr TPN CONT IV Last administered on 08/26/18at 21:34; Start 08/26/18 at 22:00; Stop 08/27/18 at 21:59; Status DC Lactobacillus Rhamnosus (Culturelle) 1 cap BID PO Last administered on 08/27/18at 21:15; Start 08/26/18 at 21:00 Sodium Chloride 90 meq/Sodium Phosphate 15 mmol/ Potassium Chloride 35 meq/ Potassium Phosphate 25 mmol/ Magnesium Sulfate 18 meq/ Multivitamins 10 ml/Chromium/ Copper/Manganese/ Seleni/Zn 1 ml/ Total Parenteral Nutrition/Amino Acids/Dextrose/ Fat Emulsion Intravenous 1,512 ml @ 63 mls/hr TPN CONT IV Last administered on 08/27/18at 21:16; Start 08/27/18 at 22:00; Stop 08/28/18 at 21:59 Albuterol Sulfate (Ventolin Neb Soln) 2.5 mg PRN 1X PRN NEB SHORTNESS OF BREATH; Start 08/28/18 at 12:15; Stop 08/29/18 at 12:14 Lidocaine HCl (Lidocaine 2% Viscous) 100 ml PRN 1X PRN MM MOUTH PAIN; Start 08/28/18 at 12:15; Stop 08/29/18 at 12:14 Lidocaine HCl (Lidocaine 1% 20ml Vial) 20 ml PRN 1X PRN INJ SEE COMMENTS; Start 08/28/18 at 12:15; Stop 08/29/18 at 12:14 Epinephrine HCl (Adrenalin) 1 mg PRN 1X PRN INJ SEE COMMENTS; Start 08/28/18 at 12:15; Stop 08/29/18 at 12:14 Lidocaine HCl 50 ml PRN 1X PRN MM SEE COMMENTS; Start 08/28/18 at 12:15; Stop 08/29/18 at 12:14 Epinephrine HCl (Adrenalin) 1 mg STK-MED ONCE .ROUTE ; Start 08/28/18 at 12:22; Stop 08/28/18 at 12:23; Status DC Lidocaine HCl (Lidocaine 1% 20ml Vial) 20 ml STK-MED ONCE .ROUTE ; Start 08/28/18 at 12:22; Stop 08/28/18 at 12:23; Status DC Lidocaine HCl (Lidocaine 2% Viscous) 100 ml STK-MED ONCE .ROUTE ; Start 08/28/18 at 12:22; Stop 08/28/18 at 12:23; Status DC Lidocaine HCl 50 ml STK-MED ONCE .ROUTE ; Start 08/28/18 at 12:22; Stop 08/28/18 at 12:23; Status DC Midazolam HCl (Versed) 2 mg PRN 1X PRN IV PRIOR TO PROCEDURE; Start 08/28/18 at 12:30; Stop 08/28/18 at 18:00 Fentanyl Citrate (Fentanyl 2ml Vial) 25 mcg PRN Q5MIN PRN IV X 2 DOSES FOR JIHAN N; Start 08/28/18 at 12:30; Stop 08/28/18 at 18:00 Fentanyl Citrate (Fentanyl 2ml Vial) 50 mcg PRN Q5MIN PRN IV X 2 DOSES FOR P AIN; Start 08/28/18 at 12:30; Stop 08/28/18 at 18:00 Ringer's Solution 1,000 ml @ 125 mls/hr Q8H IV ; Start 08/28/18 at 12:23; Stop 08/29/18 at 00:22 Lidocaine HCl (Xylocaine-Mpf 1% 2ml Vial) 2 ml 1X PRN PRN ID IV START; Start 08/28/18 at 12:30; Stop 08/28/18 at 18:00 Ringer's Solution 1,000 ml @ 50 mls/hr Q20H IV ; Start 08/28/18 at 12:37; Stop 08/29/18 at 00:36 Active Scripts Active Metoprolol Tartrate 25 Mg Tablet 25 Mg PO BID 30 Days Meropenem 500 Mg Vial 500 Mg IV Q8HRS 14 Days [Tpn Per Pharmacy] 1 EACH Each 1 Each MC PRN DAILY PRN 45 Days Diphenoxylate-Atropine Tablet (Diphenoxylate Hcl/Atropine) 1 Each Tablet 1 Tab PO PRN QID PRN 30 Days Famotidine 20 Mg Tablet 20 Mg PO QHS 60 Days Aspirin Ec (Aspirin) 81 Mg Tablet.dr 81 Mg PO DAILYWBKFT 30 Days Reported Multivitamins (Multivitamin) 1 Each Tablet 1 Each PO DAILY Vitamin D3 (Cholecalciferol (Vitamin D3)) 1,000 Unit Tablet 1,000 Unit PO DAILY Vitals/I & O Vital Sign - Last 24 Hours 08/27/18 08/27/18 08/27/18 08/27/18 15:05 19:20 19:30 19:41 Temp 97.8 97.9 97.8 97.9 Pulse 94 94 Resp 12 16 B/P (MAP) 106/54 (71) 117/61 (79) Pulse Ox 100 96 O2 Delivery Room Air Room Air Room Air Room Air 08/27/18 08/27/18 08/28/18 08/28/18 21:15 23:36 03:05 07:09 Temp 97.7 97.4 97.4 97.7 97.4 97.4 Pulse 94 84 87 89 Resp 16 16 16 B/P (MAP) 117/61 113/59 (77) 99/54 (69) 112/53 (72) Pulse Ox 98 99 O2 Delivery Room Air Room Air 08/28/18 08/28/18 08/28/18 08:00 10:45 10:51 Temp 97.4 97.4 Pulse 115 98 Resp 16 B/P (MAP) 109/53 (71) Pulse Ox 96 O2 Delivery Room Air Room Air Intake and Output 08/27/18 08/27/18 08/28/18 14:59 22:59 06:59 Intake Total 400 ml 300 ml 50 ml Output Total 550 ml 950 ml 1050 ml Balance -150 ml -650 ml -1000 ml Nutrition Consultation Dietary Evaluation: Recommendations by RD: Increase Calorie Intake, Protein supplementation, PPN/TPN Comments: Continue w/TPN per current order for nutrition needs REC Vit C 500 mg BID, MVI q day for wound healing as able Advance diet as able to regular, note multiple food intolerances Expected Outcomes/Goals: to meet > 75% est nutr needs via TPN - met, goal ongoing Interpretation of weight loss: >10% in 6 months Malnutrition Findings: Muscle Mass (Severe): Severe Depletion Weight Status: Underweight ALLYN PATE MD Aug 28, 2018 12:54
[2018-08-28] MEDS ORDERED: PROPOFOL 20 ML IV ONE (13:53)
[2018-08-28] MEDS: TPN PER PHARMACY MC PRN (14:05)
--- NOTE | 2018-08-28 14:06 | NUR ---
Pharmacy TPN Dosing Note S: CHELSIE PINEDA is a 73 year old F Currently receiving Central Continuous TPN started 08/18/18 B:Pertinent PMH: SBO Height: 5 feet, 3 inches Weight: 40.637775 kg Current diet: gi soft LABS: Sodium: 135 Potassium: 3.9 Chloride: 103 Calcium: 7.9 Corrected Calcium: 9.74 Magnesium: 2.0 CO2: 27 SCr: 0.3 Glucose: 110 Albumin: 1.7 AST: 58 ALT: 93 TPN FORMULA: TPN TYPE: Central Continuous AMINO ACIDS: 60 gm DEXTROSE: 195 gm LIPIDS: 20 gm SODIUM CHLORIDE: 90 mEq SODIUM ACETATE: mEq SODIUM PHOSPHATE: 15 mmol POTASSIUM CHLORIDE: 35 mEq POTASSIUM ACETATE: mEq POTASSIUM PHOSPHATE: 25 mmol MAGNESIUM: 18 mEq CALCIUM: - mEq INSULIN: units MULTIPLE VITAMIN: 10 ml TRACE ELEMENTS: 1 ml(s) TPN PLAN: Na slowly trending down. I/O not charted for pt. Decreased volume by ~100 ml. No other changes, BMP in AM. Pt has started diet but no intake charted yet. R: Continue TPN ABOVE. Will monitor electrolytes, glucose, and tolerance to TPN. [facility], 08/28/18 [id number]
--- NOTE | 2018-08-28 15:11 | PDOC4 ---
PROCEDURE Procedure BROCNH NO ENDO LESIONS NO PURULENT SECRETIONS PT TOLERATED PROCEDURE WELL NO COMPLICATION ARTURO ORTEGA MD Aug 28, 2018 15:11
--- NOTE | 2018-08-28 15:17 | NUR ---
Wound Care: Pt seen for wound care follow up re: a coccyx pressure ulcer. Wound cleansed and assessed and measured. Wound appears improved, with new skin covering much of the wound, periwound bright red from frequent incontinent episodes, will continue to benefit from Vitamin A&D ointment as a barrier protectant and hydrocolloid to wound. Bilateral hips with foam padding for protection, as pt has prominent bony areas, pink and blanchable. No other wounds noted on full skin inspection. Patient turned to left side. Dressing change instructions left in room.
[2018-08-28] MEDS: PANTOPRAZOLE 40 MG TABLET.DR. PO SCH (18:33)
[2018-08-28] MEDS: FAMOTIDINE 20 MG TABLET. PO SCH (21:27)
[2018-08-28] MEDS ORDERED: TOTAL PARENTERAL NUTRITION IV SCH ×10 (22:00)
[2018-08-28] MEDS ORDERED: AMINO ACID IV SCH ×10 (22:00)
[2018-08-28] MEDS ORDERED: [UNRECOGNIZED DRUG - OTHER] IV SCH ×10 (22:00)
[2018-08-28] MEDS ORDERED: DEXTROSE 70% IV SCH ×10 (22:00)
--- NOTE | 2018-08-28 23:43 | OP ---
DATE OF SURGERY: 08/28/2018 ATTENDING PHYSICIAN: Manish Win MD PROCEDURE: Bronchoscopy. INDICATIONS: The patient with persistent and new cavitary lesions on CT chest, undergoing a diagnostic bronchoscopy. Risks, benefits and alternatives reviewed with the patient. She consented. SEDATION: Please see Anesthesia's notes. DESCRIPTION OF PROCEDURE: A timeout was performed prior to sedation. Vital signs and O2 saturations were maintained within normal limits throughout the procedure. The bronchoscope was passed through the left naris. The vocal cords were identified and moving bilaterally without any dysfunction. The vocal cords were then anesthetized with a total of 5 mL of 4% lidocaine. Bronchoscope was passed through the vocal cords into the proximal trachea, which was normal. The distal trachea was likewise normal. The right and left segments and subsegments were all visualized. There were no endobronchial lesions. There was no mucus plugging. The scope was then wedged into the right upper lobe segment and lavage was performed. Thereafter, a separate lavage was performed of the right middle lobe, the return was clear. FINDINGS: 1. Normal vocal cords. 2. No endobronchial lesion. PLAN: We will await the BAL results. The patient tolerated procedure well with no immediate complications. ARTURO ORTEGA MD DR: EMILY/curtis JOB#: [id number] / [id number]
[2018-08-29 02:08] VITALS: BP 131/59
[2018-08-29 05:43] LABS: BASO # 0.1 x10^3/uL (0.0-0.2); BASO % 1 % (0-3); EOS % 1 % (0-3); HEMOGLOBIN 7.3 g/dL (12.0-15.5); LYMPH # 0.5 x10^3/uL (1.0-4.8); LYMPH % 9 % (24-48); MEAN CORPUSCULAR HEMOGLOBIN 31 pg (25-35); MEAN CORPUSCULAR HGB CONC 35 g/dL (31-37); MEAN CORPUSCULAR VOLUME 89 fL (79-100); MONO # 0.4 x10^3/uL (0.0-1.1); MONO % 8 % (0-9); NEUT # 4.6 x10^3uL (1.8-7.7); NEUT % 82 % (31-73); PLATELET COUNT 302 x10^3/uL (140-400); RED BLOOD COUNT 2.35 x10^6/uL (3.50-5.40); RED CELL DISTRIBUTION WIDTH 16.4 % (11.5-14.5); WHITE BLOOD COUNT 5.6 x10^3/uL (4.0-11.0)
[2018-08-29 05:45] LABS: HEMATOCRIT 21.2 % (36.0-47.0)
[2018-08-29 06:13] LABS: ALBUMIN 1.7 g/dL (3.4-5.0); ALBUMIN/GLOBULIN RATIO 0.5 (1.0-1.7); CREATININE 0.4 mg/dL (0.6-1.0); GFR 156.9; POTASSIUM 3.9 mmol/L (3.5-5.1); TOTAL BILIRUBIN 0.2 mg/dL (0.2-1.0); TOTAL PROTEIN 4.9 g/dL (6.4-8.2)
[2018-08-29] MEDS: MEROPENEM 500 MG in IV NORMAL SALINE 50ML 50 ML IV SCH (06:29)
[2018-08-29 07:41] VITALS: BP 110/64
[2018-08-29] MEDS: LACTOBACILLUS RHAMNOSUS GG 1 CAPSULE. PO SCH (08:20)
[2018-08-29] MEDS: METOPROLOL TART IMMED RELEASE 25 MG TABLET. PO SCH (08:20)
[2018-08-29] MEDS: PANTOPRAZOLE 40 MG TABLET.DR. PO SCH (08:20)
[2018-08-29] MEDS: CHOLECALCIFEROL (VITAMIN D3) 1,000 UNIT TABLET PO SCH (08:20)
[2018-08-29] MEDS: VITS A & D/LANOLIN TOPICAL OINTMENT 56GM TUBE. TP SCH (08:22)
--- NOTE | 2018-08-29 08:28 | NUR ---
SS following up with discharge planning. Bed available at [facility]. SS phoned and faxed orders to [facility]. Pt will discharge today and go to [facility] at 1000 via [facility] transport. Pt, pt's RN, and pt's daughter notified.
--- NOTE | 2018-08-29 08:40 | PDOC ---
Infectious Disease Note Subjective Subjective feeling good, no complaints ROS ROS no n/v/d/sob Vital Sign Vital Signs Vital Signs Date Time Temp Pulse Resp B/P (MAP) Pulse Ox O2 Delivery O2 Flow Rate FiO2 08/29/18 08:20 95 08/29/18 07:41 97.3 16 110/64 (79) 96 Room Air 97.3 08/28/18 15:15 2.0 Physical Exam PHYSICAL EXAM GENERAL: Propped up in bed, alert, cachetic, pale HEENT: Oral cavity clear, moist NECK: Supple LUNGS: Decreased breath sounds at the bases. HEART: S1, S2, regular ABDOMEN: Nondistended, soft, BS present EXTREMITIES: 1+ edema BLE, DERMATOLOGIC: Warm, dry, no generalized rash NEUROLOGY: Alert, responds appropriately LUE-PICC clean Labs Lab Laboratory Tests Test 08/28/18 12:03 08/28/18 18:58 08/29/18 05:30 08/29/18 06:08 Glucose (Fingerstick) 91 mg/dL (70-99) 92 mg/dL (70-99) 68 mg/dL (70-99) White Blood Count 5.6 x10^3/uL (4.0-11.0) Red Blood Count 2.35 x10^6/uL (3.50-5.40) Hemoglobin 7.3 g/dL (12.0-15.5) Hematocrit 21.2 % (36.0-47.0) Mean Corpuscular Volume 89 fL (79-100) Mean Corpuscular Hemoglobin 31 pg (25-35) Mean Corpuscular Hemoglobin Concent 35 g/dL (31-37) Red Cell Distribution Width 16.4 % (11.5-14.5) Platelet Count 302 x10^3/uL (140-400) Neutrophils (%) (Auto) 82 % (31-73) Lymphocytes (%) (Auto) 9 % (24-48) Monocytes (%) (Auto) 8 % (0-9) Eosinophils (%) (Auto) 1 % (0-3) Basophils (%) (Auto) 1 % (0-3) Neutrophils # (Auto) 4.6 x10^3uL (1.8-7.7) Lymphocytes # (Auto) 0.5 x10^3/uL (1.0-4.8) Monocytes # (Auto) 0.4 x10^3/uL (0.0-1.1) Eosinophils # (Auto) 0.0 x10^3/uL (0.0-0.7) Basophils # (Auto) 0.1 x10^3/uL (0.0-0.2) Sodium Level 135 mmol/L (136-145) Potassium Level 3.9 mmol/L (3.5-5.1) Chloride Level 102 mmol/L (98-107) Carbon Dioxide Level 26 mmol/L (21-32) Anion Gap 7 (6-14) Blood Urea Nitrogen 19 mg/dL (7-20) Creatinine 0.4 mg/dL (0.6-1.0) Estimated GFR (Cockcroft-Gault) 156.9 BUN/Creatinine Ratio 48 (6-20) Glucose Level 102 mg/dL (70-99) Calcium Level 8.0 mg/dL (8.5-10.1) Total Bilirubin 0.2 mg/dL (0.2-1.0) Aspartate Amino Transf (AST/SGOT) 122 U/L (15-37) Alanine Aminotransferase (ALT/SGPT) 265 U/L (14-59) Alkaline Phosphatase 202 U/L (46-116) Total Protein 4.9 g/dL (6.4-8.2) Albumin 1.7 g/dL (3.4-5.0) Albumin/Globulin Ratio 0.5 (1.0-1.7) Micro Microbiology 08/18/18 Blood Culture - Final, Complete NO GROWTH AFTER 5 DAYS Objective Assessment Cavitary mass in 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 New lesions on CT 08/24 Multiple cavitary nodules in the lung. AFB cultures negative in 03/2018. h/o SVT Ongoing subjective weight loss, failure to thrive, nausea, vomiting, weakness, cachexia. Recurrent small bowel obstruction. Abnormal CT with questionable pneumoperitoneum.- better Protein-calorie malnutrition. History of rectal cancer, last colonoscopy 03/2014. History of irritable bowel syndrome. Bandemia/leukopenia - improved Mild increase in LFTS - likely TPN Anemia Plan Plan of Care Continue Merrem (since 08/17) Probiotics Bronch done ,neg Supportive care will get ECHO D/w nursing KADY OSORIO MD Aug 29, 2018 08:40
--- NOTE | 2018-08-29 09:02 | PDOC ---
PULMONARY PROGRESS NOTES Subjective PT FEEL MORE ENERGETIC TODAY Vitals Vital Signs Date Time Temp Pulse Resp B/P (MAP) Pulse Ox O2 Delivery O2 Flow Rate FiO2 08/29/18 08:20 95 08/29/18 07:41 97.3 16 110/64 (79) 96 Room Air 97.3 08/28/18 15:15 2.0 ROS: No Nausea, No Chest Pain, No Abdominal Pain, No Increase Cough General: Alert, No acute distress HEENT: Other (nc at perrl) Lungs: Crackles Cardiovascular: S1, S2 Abdomen: Soft, Non-tender Extremities: No Edema Labs Laboratory Tests Test 08/27/18 14:10 08/27/18 17:52 08/27/18 23:05 08/28/18 05:33 Glucose (Fingerstick) 129 mg/dL (70-99) 113 mg/dL (70-99) 101 mg/dL (70-99) 97 mg/dL (70-99) Test 08/28/18 05:45 08/28/18 12:03 08/28/18 18:58 08/29/18 05:30 Sodium Level 135 mmol/L (136-145) 135 mmol/L (136-145) Potassium Level 3.9 mmol/L (3.5-5.1) 3.9 mmol/L (3.5-5.1) Chloride Level 103 mmol/L (98-107) 102 mmol/L (98-107) Carbon Dioxide Level 27 mmol/L (21-32) 26 mmol/L (21-32) Anion Gap 5 (6-14) 7 (6-14) Blood Urea Nitrogen 17 mg/dL (7-20) 19 mg/dL (7-20) Creatinine 0.3 mg/dL (0.6-1.0) 0.4 mg/dL (0.6-1.0) Estimated GFR (Cockcroft-Gault) 218.7 156.9 Glucose Level 100 mg/dL (70-99) 102 mg/dL (70-99) Calcium Level 7.9 mg/dL (8.5-10.1) 8.0 mg/dL (8.5-10.1) Phosphorus Level 3.3 mg/dL (2.6-4.7) Magnesium Level 2.0 mg/dL (1.8-2.4) Total Bilirubin 0.2 mg/dL (0.2-1.0) 0.2 mg/dL (0.2-1.0) Direct Bilirubin 0.1 mg/dL (0.0-0.2) Aspartate Amino Transf (AST/SGOT) 188 U/L (15-37) 122 U/L (15-37) Alanine Aminotransferase (ALT/SGPT) 288 U/L (14-59) 265 U/L (14-59) Alkaline Phosphatase 203 U/L (46-116) 202 U/L (46-116) Total Protein 4.5 g/dL (6.4-8.2) 4.9 g/dL (6.4-8.2) Albumin 1.7 g/dL (3.4-5.0) 1.7 g/dL (3.4-5.0) Glucose (Fingerstick) 91 mg/dL (70-99) 92 mg/dL (70-99) White Blood Count 5.6 x10^3/uL (4.0-11.0) Red Blood Count 2.35 x10^6/uL (3.50-5.40) Hemoglobin 7.3 g/dL (12.0-15.5) Hematocrit 21.2 % (36.0-47.0) Mean Corpuscular Volume 89 fL (79-100) Mean Corpuscular Hemoglobin 31 pg (25-35) Mean Corpuscular Hemoglobin Concent 35 g/dL (31-37) Red Cell Distribution Width 16.4 % (11.5-14.5) Platelet Count 302 x10^3/uL (140-400) Neutrophils (%) (Auto) 82 % (31-73) Lymphocytes (%) (Auto) 9 % (24-48) Monocytes (%) (Auto) 8 % (0-9) Eosinophils (%) (Auto) 1 % (0-3) Basophils (%) (Auto) 1 % (0-3) Neutrophils # (Auto) 4.6 x10^3uL (1.8-7.7) Lymphocytes # (Auto) 0.5 x10^3/uL (1.0-4.8) Monocytes # (Auto) 0.4 x10^3/uL (0.0-1.1) Eosinophils # (Auto) 0.0 x10^3/uL (0.0-0.7) Basophils # (Auto) 0.1 x10^3/uL (0.0-0.2) BUN/Creatinine Ratio 48 (6-20) Albumin/Globulin Ratio 0.5 (1.0-1.7) Test 08/29/18 06:08 Glucose (Fingerstick) 68 mg/dL (70-99) Laboratory Tests Test 08/28/18 12:03 08/28/18 18:58 08/29/18 05:30 08/29/18 06:08 Glucose (Fingerstick) 91 mg/dL (70-99) 92 mg/dL (70-99) 68 mg/dL (70-99) White Blood Count 5.6 x10^3/uL (4.0-11.0) Red Blood Count 2.35 x10^6/uL (3.50-5.40) Hemoglobin 7.3 g/dL (12.0-15.5) Hematocrit 21.2 % (36.0-47.0) Mean Corpuscular Volume 89 fL (79-100) Mean Corpuscular Hemoglobin 31 pg (25-35) Mean Corpuscular Hemoglobin Concent 35 g/dL (31-37) Red Cell Distribution Width 16.4 % (11.5-14.5) Platelet Count 302 x10^3/uL (140-400) Neutrophils (%) (Auto) 82 % (31-73) Lymphocytes (%) (Auto) 9 % (24-48) Monocytes (%) (Auto) 8 % (0-9) Eosinophils (%) (Auto) 1 % (0-3) Basophils (%) (Auto) 1 % (0-3) Neutrophils # (Auto) 4.6 x10^3uL (1.8-7.7) Lymphocytes # (Auto) 0.5 x10^3/uL (1.0-4.8) Monocytes # (Auto) 0.4 x10^3/uL (0.0-1.1) Eosinophils # (Auto) 0.0 x10^3/uL (0.0-0.7) Basophils # (Auto) 0.1 x10^3/uL (0.0-0.2) Sodium Level 135 mmol/L (136-145) Potassium Level 3.9 mmol/L (3.5-5.1) Chloride Level 102 mmol/L (98-107) Carbon Dioxide Level 26 mmol/L (21-32) Anion Gap 7 (6-14) Blood Urea Nitrogen 19 mg/dL (7-20) Creatinine 0.4 mg/dL (0.6-1.0) Estimated GFR (Cockcroft-Gault) 156.9 BUN/Creatinine Ratio 48 (6-20) Glucose Level 102 mg/dL (70-99) Calcium Level 8.0 mg/dL (8.5-10.1) Total Bilirubin 0.2 mg/dL (0.2-1.0) Aspartate Amino Transf (AST/SGOT) 122 U/L (15-37) Alanine Aminotransferase (ALT/SGPT) 265 U/L (14-59) Alkaline Phosphatase 202 U/L (46-116) Total Protein 4.9 g/dL (6.4-8.2) Albumin 1.7 g/dL (3.4-5.0) Albumin/Globulin Ratio 0.5 (1.0-1.7) Medications Active Scripts Medications Dose Route/Sig Max Daily Dose Days Date Category Avelox (Moxifloxacin Hcl) 400 Mg Tablet 1 Tab PO DAILY 05/17/18 Rx Diphenoxylate-Atropine Tablet (Diphenoxylate Hcl/Atropine) 1 Each Tablet 1 Tab PO PRN QID PRN 30 04/21/18 Rx Famotidine 20 Mg Tablet 20 Mg PO QHS 60 04/19/18 Rx Aspirin Ec (Aspirin) 81 Mg Tablet.dr 81 Mg PO DAILYWBKFT 30 04/19/18 Rx Toprol Xl (Metoprolol Succinate) 50 Mg Tab.er.24h 50 Mg PO HS 30 04/19/18 Rx Hydrocodone-Apap 5-325 (Hydrocodone Bit/Acetaminophen) 1 Tab Tablet 1 Tab PO PRN Q4HRS PRN 03/09/18 Rx Multivitamins (Multivitamin) 1 Each Tablet 1 Each PO DAILY 03/07/18 Reported Vitamin D3 (Cholecalciferol (Vitamin D3)) 1,000 Unit Tablet 1,000 Unit PO DAILY 03/07/[address] reviewed 1. The previously seen right lower lobe cavitary lesion is again identified, with an increased gas and diminished fluid component since prior study. 2. Increased cavitation in the separate lesion in the superior segment of the right lower lobe. 3. Multiple new small cavitary nodules are now identified in both lungs. This does raise the question of septic emboli, versus scattered infectious foci or metastases. Impression . 1. Abnormal CT chest with a cavitary mass in the right chest, likely abscess. This is considerably reduced in size compared to the 03/2018 CT. D/W RADIOLOGY. Location of recent right lung abscess slightly inferior to previous one and as such new abscess. There is new pneumonia in RUL and tiny thin cavitary nodules in left lung. She likely has ongoing / recurrent aspiration form bowel obstruction contributing to recurrent lung abscess. 2. MALNUTRITION 3. No significant history of tobacco use. 4. Coffee ground NG aspirate 5. Pneumoperitonium 6. RECURRENT SBO, ? aspiration Bronch cultures from Mar 2018 BRONCH CULTURE Final Final report BRONCH RES 1 Final Citrobacter freundii 4+ ANTIMICROBIAL SUSCEPTIBILITY Final Comment S = Susceptible; I = Intermediate; R = Resistant P = Positive; N = Negative MICS are expressed in micrograms per mL Antibiotic RSLT#1 RSLT#2 RSLT#3 RSLT#4 Amoxicillin/Clavulanic Acid R>=32 Cefazolin R>=64 Cefepime S<=0.12 Ceftriaxone R>=64 Cefuroxime R>=64 Ciprofloxacin S<=0.25 Gentamicin S<=1 Imipenem S<=0.25 Levofloxacin S<=0.12 Meropenem S<=0.25 Nitrofurantoin S<=16 Tetracycline S<=1 Tobramycin S<=1 Trimethoprim/Sulfa S<=20 Performed at: DA - [facility] [address], [place], [place] [id number] Spring Forger: KAILASH Zarate MD, Phone: [phone] Plan . REVIEWED R/B/A TO BRONCH PT ACCEPTEDn ANTI BX PER ID PT EVAL AND TREAT, increase activity NUTRITIONAL SUPPORT ARTURO ORTEGA MD Aug 29, 2018 09:02
--- NOTE | 2018-08-29 10:02 | PDOC ---
PROGRESS NOTES Subjective Subjective She feels better. Objective Objective Vital Signs Date Time Temp Pulse Resp B/P (MAP) Pulse Ox O2 Delivery O2 Flow Rate FiO2 08/29/18 08:20 95 08/29/18 07:41 97.3 16 110/64 (79) 96 Room Air 97.3 08/28/18 15:15 2.0 Intake and Output 08/29/18 06:59 Intake Total 900 ml Output Total 1800 ml Balance -900 ml IV Total 900 ml Output Urine Total 1800 ml Physical Exam Physical Exam She is alert,sitting in bedside wheel chair and she is eating better and participating with therapy and her physical endurance remains low. Assessment Assessment Problems Medical Problems: (1) Pneumoperitoneum Status: Acute Plan Plan of Care Agree with plans for transfer to LTAC unit when medically stable. Comment Review of Relevant I have reviewed the following items jackie (where applicable) has been applied. Labs Laboratory Tests Test 08/27/18 14:10 08/27/18 17:52 08/27/18 23:05 08/28/18 05:33 Glucose (Fingerstick) 129 mg/dL (70-99) 113 mg/dL (70-99) 101 mg/dL (70-99) 97 mg/dL (70-99) Test 08/28/18 05:45 08/28/18 12:03 08/28/18 18:58 08/29/18 05:30 Sodium Level 135 mmol/L (136-145) 135 mmol/L (136-145) Potassium Level 3.9 mmol/L (3.5-5.1) 3.9 mmol/L (3.5-5.1) Chloride Level 103 mmol/L (98-107) 102 mmol/L (98-107) Carbon Dioxide Level 27 mmol/L (21-32) 26 mmol/L (21-32) Anion Gap 5 (6-14) 7 (6-14) Blood Urea Nitrogen 17 mg/dL (7-20) 19 mg/dL (7-20) Creatinine 0.3 mg/dL (0.6-1.0) 0.4 mg/dL (0.6-1.0) Estimated GFR (Cockcroft-Gault) 218.7 156.9 Glucose Level 100 mg/dL (70-99) 102 mg/dL (70-99) Calcium Level 7.9 mg/dL (8.5-10.1) 8.0 mg/dL (8.5-10.1) Phosphorus Level 3.3 mg/dL (2.6-4.7) Magnesium Level 2.0 mg/dL (1.8-2.4) Total Bilirubin 0.2 mg/dL (0.2-1.0) 0.2 mg/dL (0.2-1.0) Direct Bilirubin 0.1 mg/dL (0.0-0.2) Aspartate Amino Transf (AST/SGOT) 188 U/L (15-37) 122 U/L (15-37) Alanine Aminotransferase (ALT/SGPT) 288 U/L (14-59) 265 U/L (14-59) Alkaline Phosphatase 203 U/L (46-116) 202 U/L (46-116) Total Protein 4.5 g/dL (6.4-8.2) 4.9 g/dL (6.4-8.2) Albumin 1.7 g/dL (3.4-5.0) 1.7 g/dL (3.4-5.0) Glucose (Fingerstick) 91 mg/dL (70-99) 92 mg/dL (70-99) White Blood Count 5.6 x10^3/uL (4.0-11.0) Red Blood Count 2.35 x10^6/uL (3.50-5.40) Hemoglobin 7.3 g/dL (12.0-15.5) Hematocrit 21.2 % (36.0-47.0) Mean Corpuscular Volume 89 fL (79-100) Mean Corpuscular Hemoglobin 31 pg (25-35) Mean Corpuscular Hemoglobin Concent 35 g/dL (31-37) Red Cell Distribution Width 16.4 % (11.5-14.5) Platelet Count 302 x10^3/uL (140-400) Neutrophils (%) (Auto) 82 % (31-73) Lymphocytes (%) (Auto) 9 % (24-48) Monocytes (%) (Auto) 8 % (0-9) Eosinophils (%) (Auto) 1 % (0-3) Basophils (%) (Auto) 1 % (0-3) Neutrophils # (Auto) 4.6 x10^3uL (1.8-7.7) Lymphocytes # (Auto) 0.5 x10^3/uL (1.0-4.8) Monocytes # (Auto) 0.4 x10^3/uL (0.0-1.1) Eosinophils # (Auto) 0.0 x10^3/uL (0.0-0.7) Basophils # (Auto) 0.1 x10^3/uL (0.0-0.2) BUN/Creatinine Ratio 48 (6-20) Albumin/Globulin Ratio 0.5 (1.0-1.7) Test 08/29/18 06:08 Glucose (Fingerstick) 68 mg/dL (70-99) Laboratory Tests Test 08/28/18 12:03 08/28/18 18:58 08/29/18 05:30 08/29/18 06:08 Glucose (Fingerstick) 91 mg/dL (70-99) 92 mg/dL (70-99) 68 mg/dL (70-99) White Blood Count 5.6 x10^3/uL (4.0-11.0) Red Blood Count 2.35 x10^6/uL (3.50-5.40) Hemoglobin 7.3 g/dL (12.0-15.5) Hematocrit 21.2 % (36.0-47.0) Mean Corpuscular Volume 89 fL (79-100) Mean Corpuscular Hemoglobin 31 pg (25-35) Mean Corpuscular Hemoglobin Concent 35 g/dL (31-37) Red Cell Distribution Width 16.4 % (11.5-14.5) Platelet Count 302 x10^3/uL (140-400) Neutrophils (%) (Auto) 82 % (31-73) Lymphocytes (%) (Auto) 9 % (24-48) Monocytes (%) (Auto) 8 % (0-9) Eosinophils (%) (Auto) 1 % (0-3) Basophils (%) (Auto) 1 % (0-3) Neutrophils # (Auto) 4.6 x10^3uL (1.8-7.7) Lymphocytes # (Auto) 0.5 x10^3/uL (1.0-4.8) Monocytes # (Auto) 0.4 x10^3/uL (0.0-1.1) Eosinophils # (Auto) 0.0 x10^3/uL (0.0-0.7) Basophils # (Auto) 0.1 x10^3/uL (0.0-0.2) Sodium Level 135 mmol/L (136-145) Potassium Level 3.9 mmol/L (3.5-5.1) Chloride Level 102 mmol/L (98-107) Carbon Dioxide Level 26 mmol/L (21-32) Anion Gap 7 (6-14) Blood Urea Nitrogen 19 mg/dL (7-20) Creatinine 0.4 mg/dL (0.6-1.0) Estimated GFR (Cockcroft-Gault) 156.9 BUN/Creatinine Ratio 48 (6-20) Glucose Level 102 mg/dL (70-99) Calcium Level 8.0 mg/dL (8.5-10.1) Total Bilirubin 0.2 mg/dL (0.2-1.0) Aspartate Amino Transf (AST/SGOT) 122 U/L (15-37) Alanine Aminotransferase (ALT/SGPT) 265 U/L (14-59) Alkaline Phosphatase 202 U/L (46-116) Total Protein 4.9 g/dL (6.4-8.2) Albumin 1.7 g/dL (3.4-5.0) Albumin/Globulin Ratio 0.5 (1.0-1.7) Microbiology 08/18/18 Blood Culture - Final, Complete NO GROWTH AFTER 5 DAYS Medications Current Medications Sodium Chloride 1,000 ml @ 100 mls/hr Q10H IV Last administered on 08/17/18at 06:55; Start 08/17/18 at 06:30; Stop 08/17/18 at 16:29; Status DC Ondansetron HCl (Zofran) 4 mg 1X ONCE IV Last administered on 08/17/18at 06:55; Start 08/17/18 at 06:30; Stop 08/17/18 at 06:31; Status DC Iohexol (Omnipaque 240 Mg/ml) 30 ml 1X ONCE PO Last administered on 08/17/18at 07:15; Start 08/17/18 at 07:15; Stop 08/17/18 at 07:16; Status DC Iohexol (Omnipaque 300 Mg/ml) 75 ml 1X ONCE IV Last administered on 08/17/18at 08:11; Start 08/17/18 at 07:15; Stop 08/17/18 at 07:16; Status DC Info (CONTRAST GIVEN -- Rx MONITORING) 1 each PRN DAILY PRN MC SEE COMMENTS; Start 08/17/18 at 07:15; Stop 08/19/18 at 07:14; Status DC Sodium Chloride 1,000 ml @ 1,000 mls/hr 1X ONCE IV Last administered on 08/17/18at 07:45; Start 08/17/18 at 07:45; Stop 08/17/18 at 08:44; Status DC Magnesium Sulfate/ Dextrose 100 ml @ 100 mls/hr 1X ONCE IV Last administered on 08/17/18at 14:55; Start 08/17/18 at 07:45; Stop 08/17/18 at 08:44; Status DC Potassium Chloride/Water 100 ml @ 100 mls/hr Q1H IV Last administered on 08/17/18at 09:23; Start 08/17/18 at 07:45; Stop 08/17/18 at 09:44; Status DC Ertapenem 50 ml @ 100 mls/hr 1X ONCE IV ; Start 08/17/18 at 09:15; Stop 08/17/18 at 09:44; Status UNV Meropenem 500 mg/ Sodium Chloride 50 ml @ 100 mls/hr 1X ONCE IV Last administered on 08/17/18at 10:53; Start 08/17/18 at 09:30; Stop 08/17/18 at 09:59; Status DC Ondansetron HCl (Zofran) 4 mg PRN Q8HRS PRN IV NAUSEA/VOMITING; Start 08/17/18 at 10:00; Stop 08/18/18 at 09:59; Status DC Morphine Sulfate (Morphine Sulfate) 4 mg PRN Q2HR PRN IV PAIN; Start 08/17/18 at 10:00; Stop 08/18/18 at 09:59; Status DC Meropenem 500 mg/ Sodium Chloride 50 ml @ 100 mls/hr Q8HRS IV Last administered on 08/29/18at 06:29; Start 08/17/18 at 14:00 Amino Acids/ Glycerin/ Electrolytes 1,000 ml @ 80 mls/hr [id number] IV Last administered on 08/17/18at 20:57; Start 08/17/18 at 20:15; Stop 08/19/18 at 10:57; Status DC Potassium Chloride/Sodium Chloride 1,000 ml @ 75 mls/hr 1X ONCE IV Last administered on 08/18/18at 11:26; Start 08/18/18 at 07:45; Stop 08/18/18 at 21:04; Status DC Magnesium Sulfate 50 ml @ 25 mls/hr 1X ONCE IV Last administered on 08/18/18at 13:50; Start 08/18/18 at 09:00; Stop 08/18/18 at 10:59; Status DC Famotidine (Pepcid Vial) 20 mg QHS IVP Last administered on 08/22/18at 21:27; Start 08/18/18 at 21:00; Stop 08/23/18 at 09:15; Status DC Info (Tpn Per Pharmacy) 1 each PRN DAILY PRN MC SEE COMMENTS Last administered on 08/28/18at 14:05; Start 08/18/18 at 13:15 Sodium Chloride 90 meq/Potassium Chloride 50 meq/ Potassium Phosphate 13.6 mmol/Magnesium Sulfate 10 meq/ Calcium Gluconate 10 meq/ Multivitamins 10 ml/Chromium/ Copper/Manganese/ Seleni/Zn 1 ml/ Total Parenteral Nutrition/Amino Acids/Dextrose/ Fat Emulsion Intravenous 1,512 ml @ 63 mls/hr TPN CONT IV Last administered on 08/19/18at 03:19; Start 08/18/18 at 22:00; Stop 08/19/18 at 21:59; Status DC Potassium Phosphate 10 mmol/ Dextrose 103.3333 ml @ 51.667 m... Q2H IV Last administered on 08/19/18at 12:06; Start 08/19/18 at 12:00; Stop 08/19/18 at 15:59; Status DC Calcium Gluconate 1000 mg/Dextrose 110 ml @ 220 mls/hr 1X ONCE IV Last administered on 08/19/18at 15:26; Start 08/19/18 at 15:00; Stop 08/19/18 at 15:29; Status DC Furosemide (Lasix) 20 mg 1X ONCE IVP Last administered on 08/19/18at 13:45; Start 08/19/18 at 13:15; Stop 08/19/18 at 13:16; Status DC Sodium Chloride 90 meq/Potassium Chloride 60 meq/ Potassium Phosphate 17 mmol/ Magnesium Sulfate 10 meq/Calcium Gluconate 15 meq/ Multivitamins 10 ml/Chromium/ Copper/Manganese/ Seleni/Zn 1 ml/ Total Parenteral Nutrition/Amino Acids/Dextrose/ Fat Emulsion Intravenous 1,512 ml @ 63 mls/hr TPN CONT IV Last administered on 08/19/18at 21:46; Start 08/19/18 at 22:00; Stop 08/20/18 at 21:59; Status DC Dextrose (Dextrose 50%-Water Syringe) 12.5 gm PRN Q15MIN PRN IV SEE COMMENTS; Start 08/20/18 at 06:30 Adenosine (Adenocard) 6 mg 1X ONCE IV Last administered on 08/20/18at 07:45; Start 08/20/18 at 10:00; Stop 08/20/18 at 10:08; Status DC Sodium Phosphate 30 mmol/Dextrose 260 ml @ 65 mls/hr 1X ONCE IV Last administered on 08/20/18at 13:04; Start 08/20/18 at 13:00; Stop 08/20/18 at 16:59; Status DC Sodium Chloride 90 meq/Potassium Chloride 60 meq/ Potassium Phosphate 25 mmol/ Magnesium Sulfate 10 meq/Calcium Gluconate 10 meq/ Multivitamins 10 ml/Chromium/ Copper/Manganese/ Seleni/Zn 1 ml/ Total Parenteral Nutrition/Amino Acids/Dextrose/ Fat Emulsion Intravenous 1,512 ml @ 63 mls/hr TPN CONT IV Last administered on 08/20/18at 20:32; Start 08/20/18 at 22:00; Stop 08/21/18 at 21:59; Status DC Bisacodyl (Dulcolax Supp) 10 mg 1X ONCE MD Last administered on 08/21/18at 11:14; Start 08/21/18 at 09:45; Stop 08/21/18 at 09:46; Status DC Potassium Phosphate 15 mmol/ Sodium Chloride 255 ml @ 127.5 mls/ hr 1X ONCE IV Last administered on 08/21/18at 16:48; Start 08/21/18 at 15:00; Stop 08/21/18 at 16:59; Status DC Sodium Chloride 90 meq/Potassium Chloride 60 meq/ Potassium Phosphate 25 mmol/ Magnesium Sulfate 13 meq/Calcium Gluconate 10 meq/ Multivitamins 10 ml/Chromium/ Copper/Manganese/ Seleni/Zn 1 ml/ Total Parenteral Nutrition/Amino Acids/D extrose/ Fat Emulsion Intravenous 1,512 ml @ 63 mls/hr TPN CONT IV Last administered on 08/21/18at 22:03; Start 08/21/18 at 22:00; Stop 08/22/18 at 21:59; Status DC Metoprolol Tartrate (Lopressor Vial) 5 mg PRN Q6HRS PRN IVP TACHYCARDIA Last administered on 08/22/18at 17:23; Start 08/22/18 at 10:00 Sodium Phosphate 30 mmol/Dextrose 260 ml @ 65 mls/hr 1X ONCE IV Last administered on 08/22/18at 14:13; Start 08/22/18 at 11:00; Stop 08/22/18 at 14:59; Status DC Magnesium Sulfate 50 ml @ 25 mls/hr 1X ONCE IV Last administered on 08/22/18at 10:52; Start 08/22/18 at 11:00; Stop 08/22/18 at 12:59; Status DC Sodium Chloride 90 meq/Sodium Phosphate 15 mmol/ Potassium Chloride 35 meq/ Potassium Phosphate 25 mmol/ Magnesium Sulfate 18 meq/ Multivitamins 10 ml/Chromium/ Copper/Manganese/ Seleni/Zn 1 ml/ Total Parenteral Nutrition/Amino Acids/Dextrose/ Fat Emulsion Intravenous 1,512 ml @ 63 mls/hr TPN CONT IV Last administered on 08/22/18at 21:28; Start 08/22/18 at 22:00; Stop 08/23/18 at 21:59; Status DC Famotidine (Pepcid) 20 mg QHS PO Last administered on 08/28/18at 21:27; Start 08/23/18 at 21:00 Sodium Chloride 90 meq/Sodium Phosphate 15 mmol/ Potassium Chloride 35 meq/ Potassium Phosphate 25 mmol/ Magnesium Sulfate 18 meq/ Multivitamins 10 ml/Chromium/ Copper/Manganese/ Seleni/Zn 1 ml/ Total Parenteral Nutrition/Amino Acids/Dextrose/ Fat Emulsion Intravenous 1,512 ml @ 63 mls/hr TPN CONT IV Last administered on 08/23/18at 21:59; Start 08/23/18 at 22:00; Stop 08/24/18 at 21:59; Status DC Vitamin D (Vitamin D3) 1,000 unit DAILY PO Last administered on 08/29/18at 08:20; Start 08/23/18 at 16:00 Non-Formulary Medication (Multivitamin (Multivitamins)) 1 each DAILY PO ; Start 08/24/18 at 09:00; Status UNV Metoprolol Tartrate (Lopressor) 12.5 mg BID PO Last administered on 08/25/18at 09:04; Start 08/23/18 at 15:30; Stop 08/25/18 at 13:43; Status DC Sodium Chloride 500 ml @ 500 mls/hr 1X ONCE IV Last administered on 08/23/18at 16:12; Start 08/23/18 at 15:30; Stop 08/23/18 at 16:29; Status DC Iohexol (Omnipaque 300 Mg/ml) 75 ml 1X ONCE IV Last administered on 08/24/18at 10:15; Start 08/24/18 at 08:15; Stop 08/24/18 at 08:18; Status DC Info (CONTRAST GIVEN -- Rx MONITORING) 1 each PRN DAILY PRN MC SEE COMMENTS; Start 08/24/18 at 08:30; Stop 08/26/18 at 08:29; Status DC Sodium Chloride 90 meq/Sodium Phosphate 15 mmol/ Potassium Chloride 35 meq/ Potassium Phosphate 25 mmol/ Magnesium Sulfate 18 meq/ Multivitamins 10 ml /Chromium/ Copper/Manganese/ Seleni/Zn 1 ml/ Total Parenteral Nutrition/Amino Acids/Dextrose/ Fat Emulsion Intravenous 1,512 ml @ 63 mls/hr TPN CONT IV Last administered on 08/24/18at 21:32; Start 08/24/18 at 22:00; Stop 08/25/18 at 21:59; Status DC Vitamin A/Vitamin D (Vitamin A & D Ointment) 1 gadiel QID TP Last administered on 08/29/18at 08:22; Start 08/24/18 at 17:00 Adenosine (Adenocard) 6 mg 1X ONCE IV Last administered on 08/24/18at 19:56; Start 08/24/18 at 20:00; Stop 08/24/18 at 20:01; Status DC Sodium Chloride 90 meq/Sodium Phosphate 15 mmol/ Potassium Chloride 35 meq/ Potassium Phosphate 25 mmol/ Magnesium Sulfate 18 meq/ Multivitamins 10 ml/Chromium/ Copper/Manganese/ Seleni/Zn 1 ml/ Total Parenteral Nutrition/Amino Acids/Dextrose/ Fat Emulsion Intravenous 1,512 ml @ 63 mls/hr TPN CONT IV Last administered on 08/25/18at 21:42; Start 08/25/18 at 22:00; Stop 08/26/18 at 21:59; Status DC Metoprolol Tartrate (Lopressor) 25 mg BID PO Last administered on 08/29/18at 08:20; Start 08/25/18 at 21:00 Metoprolol Tartrate (Lopressor) 12.5 mg 1X ONCE PO Last administered on 08/25/18at 14:30; Start 08/25/18 at 14:15; Stop 08/25/18 at 14:16; Status DC Sodium Chloride 90 meq/Sodium Phosphate 15 mmol/ Potassium Chloride 35 meq/ Potassium Phosphate 25 mmol/ Magnesium Sulfate 18 meq/ Multivitamins 10 ml/Chromium/ Copper/Manganese/ Seleni/Zn 1 ml/ Total Parenteral Nutrition/Amino Acids/Dextrose/ Fat Emulsion Intravenous 1,512 ml @ 63 mls/hr TPN CONT IV Last administered on 08/26/18at 21:34; Start 08/26/18 at 22:00; Stop 08/27/18 at 21:59; Status DC Lactobacillus Rhamnosus (Culturelle) 1 cap BID PO Last administered on 08/29/18 08:20; Start 08/26/18 at 21:00 Sodium Chloride 90 meq/Sodium Phosphate 15 mmol/ Potassium Chloride 35 meq/ Potassium Phosphate 25 mmol/ Magnesium Sulfate 18 meq/ Multivitamins 10 ml/Chromium/ Copper/Manganese/ Seleni/Zn 1 ml/ Total Parenteral Nutrition/Amino Acids/Dextrose/ Fat Emulsion Intravenous 1,512 ml @ 63 mls/hr TPN CONT IV Last administered on 08/27/18 21:16; Start 08/27/18 at 22:00; Stop 08/28/18 at 21:59; Status DC Albuterol Sulfate (Ventolin Neb Soln) 2.5 mg PRN 1X PRN NEB SHORTNESS OF BREATH; Start 08/28/18 at 12:15; Stop 08/29/18 at 12:14 Lidocaine HCl (Lidocaine 2% Viscous) 100 ml PRN 1X PRN MM MOUTH PAIN Last administered on 08/28/18at 13:19; Start 08/28/18 at 12:15; Stop 08/29/18 at 12:14 Lidocaine HCl (Lidocaine 1% 20ml Vial) 20 ml PRN 1X PRN INJ SEE COMMENTS Last administered on 08/28/18at 13:20; Start 08/28/18 at 12:15; Stop 08/29/18 at 12:14 Epinephrine HCl (Adrenalin) 1 mg PRN 1X PRN INJ SEE COMMENTS; Start 08/28/18 at 12:15; Stop 08/29/18 at 12:14 Lidocaine HCl 50 ml PRN 1X PRN MM SEE COMMENTS Last administered on 08/28/18at 13:19; Start 08/28/18 at 12:15; Stop 08/29/18 at 12:14 Epinephrine HCl (Adrenalin) 1 mg STK-MED ONCE .ROUTE ; Start 08/28/18 at 12:22; Stop 08/28/18 at 12:23; Status DC Lidocaine HCl (Lidocaine 1% 20ml Vial) 20 ml STK-MED ONCE .ROUTE ; Start 08/28/18 at 12:22; Stop 08/28/18 at 12:23; Status DC Lidocaine HCl (Lidocaine 2% Viscous) 100 ml STK-MED ONCE .ROUTE ; Start 08/28/18 at 12:22; Stop 08/28/18 at 12:23; Status DC Lidocaine HCl 50 ml STK-MED ONCE .ROUTE ; Start 08/28/18 at 12:22; Stop 08/28/18 at 12:23; Status DC Midazolam HCl (Versed) 2 mg PRN 1X PRN IV PRIOR TO PROCEDURE; Start 08/28/18 at 12:30; Stop 08/28/18 at 18:00; Status DC Fentanyl Citrate (Fentanyl 2ml Vial) 25 mcg PRN Q5MIN PRN IV X 2 DOSES FOR PAIN; Start 08/28/18 at 12:30; Stop 08/28/18 at 18:00; Status DC Fentanyl Citrate (Fentanyl 2ml Vial) 50 mcg PRN Q5MIN PRN IV X 2 DOSES FOR PAIN; Start 08/28/18 at 12:30; Stop 08/28/18 at 18:00; Status DC Ringer's Solution 1,000 ml @ 125 mls/hr Q8H IV Last administered on 08/28/18at 13:30; Start 08/28/18 at 12:23; Stop 08/28/18 at 22:32; Status DC Lidocaine HCl (Xylocaine-Mpf 1% 2ml Vial) 2 ml 1X PRN PRN ID IV START; Start 08/28/18 at 12:30; Stop 08/28/18 at 18:00; Status DC Ringer's Solution 1,000 ml @ 50 mls/hr Q20H IV ; Start 08/28/18 at 12:37; Stop 08/29/18 at 00:36; Status DC Pantoprazole Sodium (Protonix) 40 mg DAILYAC PO Last administered on 08/29/18at 08:20; Start 08/28/18 at 16:30 Propofol 20 ml @ As Directed STK-MED ONCE IV ; Start 08/28/18 at 13:53; Stop 08/28/18 at 13:54; Status DC Sodium Chloride 90 meq/Sodium Phosphate 15 mmol/ Potassium Chloride 35 meq/ Potassium Phosphate 25 mmol/ Magnesium Sulfate 18 meq/ Multivitamins 10 ml/Chromium/ Copper/Manganese/ Seleni/Zn 1 ml/ Total Parenteral Nutrition/Amino Acids/Dextrose/ Fat Emulsion Intravenous 1,392 ml @ 58 mls/hr TPN CONT IV Last administered on 08/28/18at 21:29; Start 08/28/18 at 22:00; Stop 08/29/18 at 21:59 Active Scripts Active Metoprolol Tartrate 25 Mg Tablet 25 Mg PO BID 30 Days Meropenem 500 Mg Vial 500 Mg IV Q8HRS 14 Days [Tpn Per Pharmacy] 1 EACH Each 1 Each MC PRN DAILY PRN 45 Days Diphenoxylate-Atropine Tablet (Diphenoxylate Hcl/Atropine) 1 Each Tablet 1 Tab PO PRN QID PRN 30 Days Famotidine 20 Mg Tablet 20 Mg PO QHS 60 Days Aspirin Ec (Aspirin) 81 Mg Tablet.dr 81 Mg PO DAILYWBKFT 30 Days Reported Multivitamins (Multivitamin) 1 Each Tablet 1 Each PO DAILY Vitamin D3 (Cholecalciferol (Vitamin D3)) 1,000 Unit Tablet 1,000 Unit PO DAILY Vitals/I & O Vital Sign - Last 24 Hours 08/28/18 08/28/18 08/28/18 08/28/18 10:45 10:51 13:27 14:15 Temp 97.4 97.7 98.6 97.4 97.7 98.6 Pulse 115 98 85 91 Resp 16 16 16 B/P (MAP) 109/53 (71) 93/49 Pulse Ox 96 99 97 O2 Delivery Room Air Simple Mask O2 Flow Rate 10 6/10/19 08/28/18 08/28/18 08/28/18 14:30 14:45 15:10 15:15 Pulse 84 88 75 96 Resp 16 16 16 B/P (MAP) 104/68 121/81 164/91 (115) 164/91 (115) Pulse Ox 97 97 96 O2 Delivery Simple Mask Simple Mask NonRebreather Mask O2 Flow Rate 10 5 2.0 08/28/18 08/28/18 08/28/18 08/28/18 15:25 15:40 15:55 16:25 Pulse 69 75 68 75 B/P (MAP) 127/70 (89) 159/80 (106) 160/70 (100) 177/81 (113) 08/28/18 08/28/18 08/28/18 08/28/18 19:38 19:43 21:28 22:22 Temp 98.0 98.0 98.0 98.0 Pulse 71 71 97 Resp 18 20 B/P (MAP) 116/58 (77) 116/58 95/52 (66) Pulse Ox 93 96 O2 Delivery Room Air Room Air Room Air 08/29/18 08/29/18 08/29/18 02:08 07:41 08:20 Temp 97.9 97.3 97.9 97.3 Pulse 85 89 95 Resp 16 16 B/P (MAP) 131/59 (83) 110/64 (79) Pulse Ox 95 96 O2 Delivery Room Air Room Air Intake and Output 08/28/18 08/28/18 08/29/18 14:59 22:59 06:59 Intake Total 900 ml Output Total 200 ml 650 ml 950 ml Balance 700 ml -650 ml -950 ml Nutrition Consultation Dietary Evaluation: Recommendations by RD: Increase Calorie Intake, Protein supplementation, PPN/TPN Comments: Continue w/TPN per current order for nutrition needs REC Vit C 500 mg BID, MVI q day for wound healing as able Advance diet as able to regular, note multiple food intolerances Expected Outcomes/Goals: to meet > 75% est nutr needs via TPN - met, goal ongoing Interpretation of weight loss: >10% in 6 months Malnutrition Findings: Muscle Mass (Severe): Severe Depletion Weight Status: Underweight DENNIS WHALEY MD Aug 29, 2018 10:02
--- NOTE | 2018-08-29 10:09 | CARD ---
MR#: [id number] Date of Study: 08/29/2018 Ordering Physician: KADY OSORIO, Referring Physician: CHELSIE MAYNARD Tech: Irma Leal RDCS APPROVED REPORT EXAM: Two-dimensional and M-mode echocardiogram with Doppler and color Doppler. Other Information Quality : Good Technically limited study due to rib interferance INDICATION Infection:Rule out subacute bacterial endocarditis 2D DIMENSIONS Left Atrium(2D)2.1 (1.6-4.0cm)IVSd0.7 (0.7-1.1cm) Aortic Root(2D)1.5 (2.0-3.7cm)LVDd3.4 (3.9-5.9cm) LVOT Diameter1.7 (1.8-2.4cm)PWd0.5 (0.7-1.1cm) LVDs2.7 (2.5-4.0cm)FS (%) 20.3 % SV20.0 ml Aortic Valve AoV Peak Harsh.72.9cm/sAoV VTI11.4cm AO Peak GR.2.1mmHgLVOT Peak Harsh.77.5cm/s AO Mean GR.1mmHgAVA (VMAX)2.30cm2 VALENTINA (VTI)2.60cm2 Mitral Valve MV E Ifnlewqp99.9cm/sMV DECEL [id number] MV A Ocqzualw92.7cm/sE/A Ratio0.8 Tricuspid Valve TR P. [id number]/sRAP [id number] TR Peak Gr.[id number] LEFT VENTRICLE The left ventricle is normal size. There is normal left ventricular wall thickness. The left ventricu lar systolic function is normal. The Ejection Fraction is 55% There is normal LV segmental wall motio n. Transmitral Doppler flow pattern is Grade I-abnormal relaxation pattern. RIGHT VENTRICLE The right ventricle is normal size. The right ventricular systolic function is normal. ATRIA The left atrium size is normal. The right atrium size is normal. The interatrial septum is intact wit h no evidence for an atrial septal defect or patent foramen ovale as noted on 2-D or Doppler imaging. AORTIC VALVE The aortic valve is normal in structure and function. Doppler and Color Flow revealed no significant aortic regurgitation. There is no significant aortic valvular stenosis. There is no aortic valvular v egetation. MITRAL VALVE The mitral valve is mildly thickened but opens well. There is no evidence of mitral valve prolapse or vegetation. There is no mitral valve stenosis. Doppler and Color-flow revealed mild mitral regurgita tion. TRICUSPID VALVE The tricuspid valve is normal in structure and function. Doppler and Color Flow revealed trace to mil d tricuspid regurgitation. The PA pressure was estimated at 25 mmHg. There is no tricuspid valve prol apse or vegetation. There is no tricuspid valve stenosis. PULMONIC VALVE The pulmonary valve is normal in function. There is a questionable vegetation on the pulmonic valve. Doppler and Color Flow revealed mild pulmonic valvular regurgitation. There is no pulmonic valvular s tenosis. GREAT VESSELS The aortic root is normal in size. The ascending aorta is not well seen. PERICARDIAL EFFUSION There is no evidence of significant pericardial effusion. Critical Notification Critical Value: No <Conclusion> The left ventricular systolic function is normal. The Ejection Fraction is 55% There is normal LV segmental wall motion. Transmitral Doppler flow pattern is Grade I-abnormal relaxation pattern. Mild mitral regurgitation. Trace to mild tricuspid regurgitation. The PA pressure was estimated at 25 mmHg. There is no evidence of significant pericardial effusion. No intracardiac vegetation or thrombus. Signed by : Derek Segura, Electronically Approved : 08/29/2018 10:08:34
--- NOTE | 2018-08-29 10:16 | NUR ---
Discharge: Teaching verbal and written. Report called to [facility] [phone]. Report called to BRIANNA Martin at [phone]. Reviewed orders, plan of care, wound, TPN, medications, ect. Copy of chart sent with patient. TPN sent per request of BRIANNA Martin. All belongings with patient. Patients Stu and daughter Michelle at bedside at time of discharge. Patient assisted off of unit via wheelchair accompanied by [facility] transport and patient family.
--- NOTE | 2018-08-29 18:05 | PATHOLOGY ---
Note [facility] Accession Number: [id number] TESTS RESULT FLAG UNITS REF RANGE LAB Clinician Provided Cytology Information No. of containers..01 Other (Miscellaneous) Source: BAL RML DIAGNOSIS: BAL RML NEGATIVE FOR MALIGNANT CELLS. FOCALLY REACTIVE BRONCHIAL EPTHELIAL CELLS, PULMONARY MACROPHAGES,AND FEW INFLAMMATORY CELLS PRESENT. Signed out by: Tomas Vallecillo MD, Pathologist NPI- [id number] Performed by: Moira Morrison, Photo Machine Operator ([facility]) Gross description: 01 12ML, WHITE, CLOUDY /LCS FLAG LEGEND: L-Low Normal,H-High Normal,LL-Alert Low,HH-Alert High <-Panic Low,>-Panic High,A-Abnormal,AA-Critical Abnormal Performed at: [facility] [address] [place] [address] Garrick Graham MD, 02 [facility] [address] [place] [address] Tomas Vallecillo MD, Performed at: [address], [place], [place] [id number] MD Garrick Graham MD Phone: [phone]
--- NOTE | 2018-08-29 18:06 | PATHOLOGY ---
Note [facility] Accession Number: [id number] TESTS RESULT FLAG UNITS REF RANGE LAB Clinician Provided Cytology Information No. of containers..01 Other (Miscellaneous) Source: [place] DIAGNOSIS: [place] NEGATIVE FOR MALIGNANT CELLS. FOCALLY REACTIVE BRONCHIAL EPITHELIAL CELLS, PULMONARY MACROPHAGES, AND FEW INFLAMMATORY CELLS PRESENT. Signed out by: Tomas Vallecillo MD, Pathologist NPI- [id number] Performed by: Moira Morrison, General Accounting Clerk ([facility]) Gross description: 01 15ML, WHITE, CLOUDY /LCS FLAG LEGEND: L-Low Normal,H-High Normal,LL-Alert Low,HH-Alert High <-Panic Low,>-Panic High,A-Abnormal,AA-Critical Abnormal Performed at: [facility] [address] [place] [address] Garrick Graham MD, [address] [facility] [address] [place] [address] Tomas Vallecillo MD, Performed at: [address], [place], [place] [id number] MD Garrick Graham MD Phone: [phone]
== END 2018-08-29 10:05 | DRG 177 ==
LOC: ER 06:14 → 6 SOUTH 09:10 → 2 NORTH 08-20 07:53
PROVIDERS: ADMIT Family Medicine; ATTEND Family Medicine
PROC: 05HY33Z Insertion of Infusion Device into Upper Vein, Percutaneous Approach (ICD-10-PCS; 2018-08-18)
PROC: B54MZZA Ultrasonography of Right Upper Extremity Veins, Guidance (ICD-10-PCS; 2018-08-18)
PROC: 0B9C8ZX Drainage of Right Upper Lung Lobe, Via Natural or Artificial Opening Endoscopic, Diagnostic (ICD-10-PCS; 2018-08-28)
PROC: 0D9670Z Drainage of Stomach with Drainage Device, Via Natural or Artificial Opening (ICD-10-PCS; 2018-08-28)
PROC: 0B9D8ZX Drainage of Right Middle Lung Lobe, Via Natural or Artificial Opening Endoscopic, Diagnostic (ICD-10-PCS; principal; 2018-08-28 14:00)
DX: J85.1 Abscess of lung with pneumonia (principal); E43 Unspecified severe protein-calorie malnutrition; K56.600 Partial intestinal obstruction, unspecified as to cause; R64 Cachexia; C20 Malignant neoplasm of rectum; E87.1 Hypo-osmolality and hyponatremia; I47.1 Supraventricular tachycardia; I47.2 Ventricular tachycardia; Z68.1 Body mass index [BMI] 19.9 or less, adult; K56.7 Ileus, unspecified; D63.8 Anemia in other chronic diseases classified elsewhere; D72.819 Decreased white blood cell count, unspecified; E78.5 Hyperlipidemia, unspecified; E83.42 Hypomagnesemia; E86.0 Dehydration; E87.6 Hypokalemia; I10 Essential (primary) hypertension; I48.91 Unspecified atrial fibrillation; K21.9 Gastro-esophageal reflux disease without esophagitis; K58.9 Irritable bowel syndrome, unspecified; K66.8 Other specified disorders of peritoneum; L89.159 Pressure ulcer of sacral region, unspecified stage; M19.90 Unspecified osteoarthritis, unspecified site; G62.9 Polyneuropathy, unspecified; M85.80 Other specified disorders of bone density and structure, unspecified site; R62.7 Adult failure to thrive; Z79.82 Long term (current) use of aspirin; Z80.0 Family history of malignant neoplasm of digestive organs; Z82.49 Family history of ischemic heart disease and other diseases of the circulatory system; Z85.048 Personal history of other malignant neoplasm of rectum, rectosigmoid junction, and anus; Z86.12 Personal history of poliomyelitis; Z87.891 Personal history of nicotine dependence; Z90.49 Acquired absence of other specified parts of digestive tract; Z92.21 Personal history of antineoplastic chemotherapy; Z92.3 Personal history of irradiation; Z90.710 Acquired absence of both cervix and uterus; Z87.311 Personal history of (healed) other pathological fracture; Z91.040 Latex allergy status; Z91.011 Allergy to milk products; Z88.8 Allergy status to other drugs, medicaments and biological substances; Z91.018 Allergy to other foods
CPT/HCPCS: 31622; 36415; 36569; 71045; 71250; 74018; 74022; 74170; 74177; 80048; 80053; 80076; 81001; 82274; 82962; 83540; 83550; 83690; 83735; 84100; 84145; 84443; 84478; 84484; 85007; 85025; 85027; 85610; 86850; 86900; 86901; 87040; 87070; 87102; 87116; 87205; 88112; 93005; 93306; 94640; 96361; 96365; 96375; J0153; J0610; J1940; J2185; J2405; J2704; J3475; J3480; J3490; J7030; J7040; J7050; J7120; P9612; Q9966; Q9967; 97110; 97116; 97530; 97535; 99285-25